=== PATIENT | male | born 1945 | race Caucasian/White ===

== ENCOUNTER 2018-03-13 12:57 | Inpatient (IN) | payer MEDICARE, OTHER ==
[~2018-03-13] VITALS: Ht 167.6 cm; Wt 58.6 kg
[2018-03-13] MEDS ORDERED: CEFEPIME 2GM/50 ML (PMX) 50 ML IVPB STA (13:15)
[2018-03-13] MEDS ORDERED: ACETAMINOPHEN 325 MG TAB PO STA (13:15)
[2018-03-13] MEDS ORDERED: SODIUM CHLORIDE 0.9% 1L BAG IV* STA (13:15)
[2018-03-13 13:17] VITALS: Ht 167.6 cm; Wt 58.6 kg
[2018-03-13] MEDS ORDERED: HALO5TAB23 PO (13:26)
[2018-03-13] MEDS ORDERED: ZOLP5TAB PO (13:27)
[2018-03-13] MEDS ORDERED: BENZ1TAB7 PO (13:27)
--- NOTE | 2018-03-13 13:29 | ERD ---
ER Documentation Chief Complaint Chief Complaint PALPITATIONS/FEVER SINCE THIS AM BROUGHT FROM [facility] HPI 72-year-old male with an unspecified psychiatric history presents the ED via rescue ambulance for evaluation of a 1 day history of palpitations and fever. At the [facility] facility today he seemed to not be acting his usual self and vital signs revealed tachycardia. Patient denies chest pain, shortness of breath, abdominal pain, nausea or vomiting. Denies URI symptoms, cough, rhinorrhea or body aches. Denies dysuria, polyuria, hematuria or flank pain. No skin rash. Patient is a poor historian and history is somewhat limited. ROS All systems reviewed and are negative except as per history of present illness. Medications Home Meds Reported Medications Benztropine Mesylate* (Benztropine Mesylate*) 1 Mg Tablet, 1 MG PO DAILY, TAB 03/13/18 Zolpidem Tartrate* (Ambien*) 5 Mg Tablet, 5 MG PO QHS PRN for INSOMNIA, #30 TAB 03/13/18 Haloperidol* (Haldol*) 5 Mg Tab, 5 MG PO TID, TAB 03/13/18 Allergies Allergies: Coded Allergies: Penicillins (Verified Allergy, Unknown, 03/13/18) PMhx/Soc Lives in a [facility] facility. Medical and Surgical Hx: pt denies Surgical Hx Hx Neurological Disorder: No Hx Respiratory Disorders: No Hx Cardiac Disorders: No Hx Psychiatric Problems: Yes (Possible schizophrenia) Hx Miscellaneous Medical Probl: No Hx Alcohol Use: No Hx Substance Use: No Hx Tobacco Use: No FmHx Unobtainable due to the patient's cognitive impairment Physical Exam Vitals Temperature: 101.3. Pulse: 154. Respirations: 22. Blood pressure: 138/100. O2 saturation 99%. Physical Exam Const: Moderate distress Head: Atraumatic Eyes: Pupils equal reactive to light, extraocular movements are intact. Normal Conjunctiva ENT: Normal External Ears, Nose and Mouth. Pharynx is clear without erythema or exudate. Mucous membranes are dry. Neck: Full range of motion. Nontender. No JVD. No meningismus. Resp: Breath sounds are equal and clear to auscultation bilaterally. No rales rhonchi or wheezes. Cardio: Tachycardic. Irregular rate and rhythm, no murmurs Abd: Soft, non tender, non distended. No rebound or guarding. No masses. Normal bowel sounds Skin: No petechiae or rashes Back: No midline or flank tenderness Ext: No cyanosis, or edema Neur: Awake and alert. Cooperative. Confused. Cranial nerves II through XII are grossly intact. Motor and sensory equal bilaterally. No focal deficit.. Psych: Anxious, bizarre affect. Result Diagram: 03/17/18 1418 03/18/18 0528 Results 24 hrs Laboratory Tests Test 03/13/18 13:25 03/13/18 14:35 03/13/18 14:50 White Blood Count 16.6 10^3/ul Red Blood Count 4.61 10^6/ul Hemoglobin 15.1 g/dl Hematocrit 44.9 % Mean Corpuscular Volume 97.4 fl Mean Corpuscular Hemoglobin 32.8 pg Mean Corpuscular 33.6 g/dl Hemoglobin Concent Red Cell Distribution Width 11.7 % Platelet Count 308 10^3/UL Mean Platelet Volume 9.9 fl Immature Granulocytes % 0.600 % Neutrophils % 85.1 % Lymphocytes % 3.3 % Monocytes % 10.7 % Eosinophils % 0.1 % Basophils % 0.2 % Nucleated Red Blood Cells % 0.0 /100WBC Immature Granulocytes # 0.100 10^3/ul Neutrophils # 14.1 10^3/ul Lymphocytes # 0.6 10^3/ul Monocytes # 1.8 10^3/ul Eosinophils # 0.0 10^3/ul Basophils # 0.0 10^3/ul Nucleated Red Blood Cells # 0.0 10^3/ul Prothrombin Time 14.0 Sec Prothrombin Time Ratio 1.1 INR International 1.07 Normalized Ratio Activated Partial Thromboplast 33.1 Sec Time Sodium Level 135 mmol/L Potassium Level 4.8 mmol/L Chloride Level 102 mmol/L Carbon Dioxide Level 18 mmol/L Anion Gap 15 Blood Urea Nitrogen 32 mg/dl Creatinine 1.25 mg/dl Est Glomerular Filtrat 57 mL/min Rate mL/min Glucose Level 168 mg/dl Calcium Level 10.0 mg/dl Magnesium Level 2.3 mg/dl Total Bilirubin 0.9 mg/dl Direct Bilirubin 0.00 mg/dl Indirect Bilirubin 0.9 mg/dl Aspartate Amino 44 IU/L Transf (AST/SGOT) Alanine 47 IU/L Aminotransferase (ALT/SGPT) Alkaline Phosphatase 106 IU/L Troponin I 0.037 ng/ml Total Protein 7.8 g/dl Albumin 4.2 g/dl Globulin 3.60 g/dl Albumin/Globulin Ratio 1.16 Thyroid Stimulating 1.910 MIU/L Hormone (TSH) POC Venous Lactate 2.0 mmol/L Urine Color YELLOW Urine Clarity CLEAR Urine pH 5.0 Urine Specific [place] 1.021 Urine Ketones TRACE mg/dL Urine Nitrite NEGATIVE mg/dL Urine Bilirubin NEGATIVE mg/dL Urine Urobilinogen NEGATIVE mg/dL Urine Leukocyte Esterase NEGATIVE Mary/ul Urine Microscopic RBC 16 /HPF Urine Microscopic WBC 4 /HPF Urine Mucus FEW /HPF Urine Hemoglobin 2+ mg/dL Urine Glucose NEGATIVE mg/dL Urine Total Protein NEGATIVE mg/dl Current Medications Medications Dose Sig/Carlos A Start Time Status Last (Trade) Ordered Route PRN Stop Time Admin Dose Reason Admin Diltiazem 20 mg ONCE ONCE 03/13/18 DC 03/13/18 HCl IV 13:30 14:26 (Cardizem Iv) 03/13/18 13:31 Diltiazem 125 ml @ 0 Q0M IV 03/13/18 DC HCl mls/hr 13:30 03/13/18 20:03 Sodium 2,400 ml BOLUS OVER 2 03/13/18 DC 03/13/18 Chloride HOURS STAT 13:15 13:55 (NS) IV* 03/13/18 13:20 650 mg ONCE STAT 03/13/18 DC 03/13/18 Acetaminophen PO 13:15 13:55 (Tylenol 03/13/18 13:20 Tab) Cefepime HCl 50 ml @ ONCE STAT 03/13/18 DC 100 mls/hr IVPB 13:15 03/13/18 13:30 Vancomycin 250 ml @ ONCE ONCE 03/13/18 DC HCl 125 mls/hr IVPB 13:30 03/13/18 13:31 Vancomycin 250 ml @ ONCE ONCE 03/13/18 DC 03/13/18 HCl 125 mls/hr IVPB 13:30 13:30 03/13/18 15:29 150 ml @ ONCE ONCE 03/13/18 DC 03/13/18 Levofloxacin/ 100 mls/hr IVPB 13:30 15:21 Dextrose 03/13/18 14:59 650 mg STK-MED 03/13/18 DC Acetaminophen ONCE .ROUTE 13:48 (Tylenol 03/13/18 13:49 Liquid) Procedures/MDM DOCUMENTS REVIEWED: ED nurse, boarding care facility documentation. No prior medical records. EKG: Time: 1306. Atrial fibrillation with RVR. Ventricular rate 141. Nonspecific ST depressions but no acute ST elevations. No QT prolongation. My Interpretation IMAGING: Chest AP portable. Cardiac silhouette is normal. The costophrenic angles are clear. No effusions or infiltrates. No mediastinal widening. My interpretation. MEDICAL DECISION MAKIN-year-old male with an unspecified psychiatric history presents the ED via rescue ambulance for evaluation of a 1 day history of palpitations and fever. CBC significant for leukocytosis but no anemia or thrombocytopenia. Chemistry reveals elevated BUN/creatinine, baseline unknown, no electrolyte abnormalities or hypoglycemia. Lactate is 2.0 mmol/L and repeat is 1.7 mmol/L. Urinalysis is negative. Chest x-ray to evaluate for pneumonia or congestive heart failure is negative. EKG is significant for atrial fibrillation with rapid ventricular response but no acute ischemic EKG changes. Patient with multiple criteria for systemic inflammatory response syndrome including fever, leukocytosis, tachycardia and tachypnea. Likely sepsis although infectious etiology is unknown. No criteria for severe sepsis or septic shock. Normal saline 30 cc/kg fluid bolus given and broad-spectrum antibiotics after cultures. New onset atrial fib with rapid ventricular response. Rate control achieved with diltiazem bolus and titratable infusion to maintain the ventricular response less than 90 bpm. Admit to telemetry for further evaluation and management. Patient's cardiovascular and infectious symptoms have not stabilized and the patient is at risk of rapid decompensation. The patient will be admitted to telemetry for rate control, cardiology consu ltation, careful hydration, antibiotic therapy, infectious source control, further evaluation and management. CRITICAL CARE NOTE: Due to the high probability of imminent, clinically significant hemodynamic, cardiovascular, respiratory and neurologic deterioration, this patient with acute encephalopathy, systemic inflammatory response syndrome and new onset atrial fibrillation with rapid ventricular response required multiple, frequent reevaluations of vital signs and response to therapy including intravenous calcium channel blockers to achieve rate control as well as emergency fluid management while maintaining close respiratory support. Provision of immediate and broad-spectrum antibiotic therapy. Simultaneous assessment for possible sources in order to direct targeted therapy. Consideration for invasive and chemical support to prevent cardiopulmonary collapse. Additional critical care time was spent in review of boarding care notes, interpretation of relevant clinical data including labs, EKG, chest x-ray as well as arranging for admission and ongoing care. TOTAL CRITICAL CARE TIME: 35 minutes not including other separately reportable procedures. CALLS/CONSULTS: Time: 14:55, Dr. Cheatham. Counseled patient regarding diagnosis, diagnostic results and plan for admi ssion. Departure Diagnosis: Primary Impression: Acute encephalopathy Additional Impressions: New onset atrial fibrillation Systemic inflammatory response syndrome Atrial fibrillation with rapid ventricular response History of schizophrenia Condition: Serious SANJAY MARINELLI MD Mar 13, 2018 13:29
[2018-03-13] MEDS ORDERED: VANCOMYCIN 1 GM (PMX) 250 ML IVPB ONE ×2 (13:30)
[2018-03-13] MEDS ORDERED: DILTIAZEM-D5W 125MG/125ML DRIP 125 ML IV SCH (13:30)
[2018-03-13] MEDS ORDERED: LEVOFLOXACIN 750MG/D5W (PMX) 150 ML IVPB ONE (13:30)
[2018-03-13] MEDS ORDERED: DILTIAZEM 25 MG INJ IV ONE ×2 (13:30→19:00)
[2018-03-13] MEDS ORDERED: ACETAMINOPHEN 650MG/20.3ML CUP ONE (13:48)
[2018-03-13] MEDS ORDERED: ONDANSETRON 4 MG INJ IV PRN ×2 (15:30→20:00)
[2018-03-13] MEDS ORDERED: ACETAMINOPHEN 325 MG TAB PO PRN ×2 (15:30→20:00)
[2018-03-13 18:00] VITALS: PULSE 132
[2018-03-13 18:21] VITALS: BP 130/74; PULSE 108; RESP 17
[2018-03-13 18:54] VITALS: PULSE 164
--- NOTE | 2018-03-13 19:30 | NUR ---
Pt. was admitted from ER at 1750 03/13/18 for palpitations, Dx of Afib w/ RVR. Hx of Dimentia. Pt. is oriented to person and time only, very poor memory, not in pain , not in distress, Afib uncontrolled HR 140-160 on admission. , the rest of the V/S within normal limits. Pt. stiff especially on bilateral legs.
--- NOTE | 2018-03-13 19:37 | NUR ---
RN NOTE CALLED DR BRANDT FOR ADMISSION ORDER AND INFORMED HIM REGARDING HR 130S , CARDIZEM IV 10 MG ORDER GIVEN , WOUND ASSESSMENT DONE FOR THIS PT . NEW IV STARTED FOR POSSIBLE CARDIZEM DRIP .
--- NOTE | 2018-03-13 19:53 | HP ---
Date/Time of Note Date/Time of Note DATE: 03/13/18 TIME: 19:48 Assessment/Plan VTE Prophylaxis SCD applied (from Nsg): Yes Pharmacological prophylaxis: NA/contraindicated Pharm contraindication: renal impairment Lines/Catheters IV Catheter Type (from Nrsg): Saline Lock Assessment/Plan Hospital Course 1. Severe sepsis with acute metabolic encephalopathy Source of sepsis is unclear, UA and chest x-ray are normal Empiric antibiotic coverage with vancomycin and Zosyn Follow-up on cultures 2. A. fib with RVR Cardizem 10 mg IV x1 Start low-dose metoprolol 3. Psychiatric illness-likely schizophrenia Resume patient's home [facility] and Sarah Patient resides in a board and care facility 4. Acute versus chronic kidney disease Baseline creatinine unknown IV fluids and antibiotics Monitor Prophylaxis: SCDs Result Diagram: 03/13/18 1325 03/13/18 1325 Results 24hrs Laboratory Tests Test 03/13/18 13:25 03/13/18 14:35 03/13/18 14:50 03/13/18 17:18 White Blood Count 16.6 H Red Blood Count 4.61 L Hemoglobin 15.1 Hematocrit 44.9 Mean Corpuscular 97.4 Volume Mean Corpuscular 32.8 Hemoglobin Mean Corpuscular 33.6 Hemoglobin Concent Red Cell 11.7 Distribution Width Platelet Count 308 Mean Platelet Volume 9.9 Immature 0.600 H Granulocytes % Neutrophils % 85.1 H Lymphocytes % 3.3 L Monocytes % 10.7 Eosinophils % 0.1 Basophils % 0.2 Nucleated Red Blood 0.0 Cells % Immature 0.100 H Granulocytes # Neutrophils # 14.1 H Lymphocytes # 0.6 L Monocytes # 1.8 H Eosinophils # 0.0 Basophils # 0.0 Nucleated Red Blood 0.0 Cells # Prothrombin Time 14.0 Prothrombin Time 1.1 Ratio INR International 1.07 Normalized Ratio Activated 33.1 Partial Thromboplast Time Sodium Level 135 Potassium Level 4.8 Chloride Level 102 Carbon Dioxide Level 18 L Anion Gap 15 H Blood Urea Nitrogen 32 H Creatinine 1.25 H Est Glomerular 57 L Filtrat Rate mL/min Glucose Level 168 Calcium Level 10.0 Magnesium Level 2.3 Total Bilirubin 0.9 Direct Bilirubin 0.00 Indirect Bilirubin 0.9 Aspartate Amino 44 Transf (AST/SGOT) Alanine 47 Aminotransferase (AL T/SGPT) Alkaline Phosphatase 106 Troponin I 0.037 Total Protein 7.8 Albumin 4.2 Globulin 3.60 H Albumin/Globulin 1.16 Ratio Thyroid Stimulating 1.910 Hormone (TSH) POC Venous Lactate 2.0 1.7 Urine Color YELLOW Urine Clarity CLEAR Urine pH 5.0 Urine Specific 1.021 [place] Urine Ketones TRACE A Urine Nitrite NEGATIVE Urine Bilirubin NEGATIVE Urine Urobilinogen NEGATIVE Urine Leukocyte NEGATIVE Esterase Urine Microscopic 16 H RBC Urine Microscopic 4 WBC Urine Mucus FEW A Urine Hemoglobin 2+ H Urine Glucose NEGATIVE Urine Total Protein NEGATIVE HPI/ROS Admit Date/Time Admit Date/Time Mar 13, 2018 at 15:21 Hx of Present Illness Patient is a 72-year-old male with a history of psychiatric illness who presents via rescue ambulance for evaluation of 1 day history of palpitations and fever. Patient resides at a boarding care facility and reportedly was mentally altered relative to his baseline. Patient is unable to provide any history at this time and history is obtained from ER physician. In the ER patient had evidence of sepsis with psychosis, fever and A. fib with RVR. ROS Subjective hx not possible: pt non-verbal PMH/Family/Social Past Medical History As per HPI Medications Current Medications Diltiazem HCl 125 ml @ 0 mls/hr Q0M IV ; Start 03/13/18 at 13:30 Coded Allergies: Penicillins (Verified Allergy, Unknown, 03/13/18) Family History Significant Family History: no pertinent family hx Social History Unable to obtain, [facility] Smoking Status: Unknown if ever smoked Exam/Review of Systems Vital Signs Vitals Vital Signs Date Temp Pulse Resp B/P (MAP) Pulse Ox O2 O2 Flow FiO2 Time Delivery Rate 03/13/18 164 18:54 03/13/18 98.6 17 130/74 96 18:21 (92) 03/13/18 Nasal 2 13:17 Cannula Exam Constitutional: non-verbal Psych: confusion Respiratory: clear to auscultation Cardiovascular: regular rate and rhythm Gastrointestinal: soft; No distended Musculoskeletal: nl extremities to inspection AIDA BRANDT Mar 13, 2018 19:53
[2018-03-13 19:58] VITALS: BP 143/76; PULSE 95; RESP 18
[2018-03-13 20:00] VITALS: PULSE 109
[2018-03-13] MEDS ORDERED: morphine 2 MG INJ IV PRN (20:00)
[2018-03-13] MEDS ORDERED: NACL 0.9% 3 ML SYG IV SCH (20:00)
[2018-03-13] MEDS ORDERED: HYDROCODONE/APAP (5/325) TAB PO PRN (20:00)
[2018-03-13] MEDS ORDERED: ZOLPIDEM 5 MG TAB PO PRN (20:00)
[2018-03-13] MEDS ORDERED: VANCOMYCIN IV PER PHARMACY XX SCH (20:00)
[2018-03-13] MEDS ORDERED: DOCUSATE SODIUM 100 MG CAP PO PRN (20:00)
[2018-03-13] MEDS: METOPROLOL 25 MG TAB PO SCH (21:08)
--- NOTE | 2018-03-13 21:40 | NUR ---
Vancomycin per Rx 72 y/o M 5'6" 58.6kg SCr 1.25 WBC 16.6 Allergy: penicillins Vancomycin 1gm IV x1 dose given in ER Start Vancomycin 750 mg IV q12h Monitor renal function Check Vancomycin trough level at steady state
[2018-03-13] MEDS ORDERED: morphine 4 MG/ML VIAL IV PRN (22:00)
[2018-03-13] MEDS: HALOPERIDOL 5 MG TAB PO SCH (22:01)
[2018-03-13] MEDS: DILTIAZEM-D5W 125MG/125ML DRIP 125 ML IV SCH (22:02)
[2018-03-13] MEDS: D5W-0.45 NACL + KCL 20 MEQ 1,000 ML IV SCH (22:21)
[2018-03-14] VITALS (13 sets, daily range): BP systolic 122–146; BP diastolic 65–89; PULSE 71–154; RESP 1–18
[2018-03-14] MEDS ORDERED: PIPER-TAZO 3.375 GM IV (PMX) 100 ML IVPB SCH
[2018-03-14] MEDS: VANCOMYCIN 750 MG (PMX) 250 ML IVPB SCH ×2 (00:37→09:52)
--- NOTE | 2018-03-14 06:20 | NUR ---
Pt. was quiet for the most part w/ bursts of anger on occasion & incoherence, A/O x2 to person & time; pt. in controlled A fib, normal V/S, on 5 mg/hr of Cardizem drip. No urination since admission, noticed some scant blood clot at tip of penis, informed hospitalist. Addendum: 03/14/18 at 0741 by FRANCISCO MAK RN Bladder scan 880 cc.
[2018-03-14] MEDS: D5W-0.45 NACL + KCL 20 MEQ 1,000 ML IV SCH ×2 (08:46→15:38)
[2018-03-14] MEDS: BENZTROPINE 1 MG TAB PO SCH (09:00)
[2018-03-14] MEDS: METOPROLOL 25 MG TAB PO SCH ×2 (09:00→21:51)
[2018-03-14] MEDS: HALOPERIDOL 5 MG TAB PO SCH ×3 (09:00→21:50)
[2018-03-14] MEDS ORDERED: LEVOFLOXACIN 750MG/D5W (PMX) 150 ML IVPB SCH (13:00)
--- NOTE | 2018-03-14 15:01 | NUR ---
WOUND CONSULT: 72 year old male admitted from [facility] with atrial fibrillation with RVR per record. History of schizophrenia per medical history. WBC 15.0. H&H13.1/38.5. Plt 282. BUN/Cr2.32. Albumin 4.2. Patient awake, alert. Moderate assist to turn. ASSESSMENT: - Right elbow stage 1 pressure injury. Condition present on admission. [id number]. Non-blanchable redness. - Left trochanter healed full thickness pressure injury with surrounding darken skin discoloration. Condition present on admission [id number]. - Left heel unstageable pressure injury. Condition present on admission. [id number]. Dark black and grayness wound base. Periwound mild redness. No drainage. No odor. - Right heel unstageable pressure injury. Condition present on admission. [id number]. Dark black wound base. Periwound mild redness. No drainage. No odor. - Sacrococcyx to buttocks patchy redness area. Stage 1 vs other skin condition. Condition present on admission. [id number]. No drainage. No odor. RECOMMENDATIONS: - Right elbow, Left and Right heels, and Sacrococcyx area: Cleanse with normal saline. Pat dry. Apply Venelex ointment BID. Then, cover with foam border dressing. Change foam dressing every 3 days and as needed. - Left hip: Cover with foam border dressing for protection. Change every 3 days. - Low air loss surface. - Float heels off bed with pillows. - Reposition every 2 hours. Discussed assessment and plan of care with Torrie BRAMBILA. RN to obtain wound care recommendations from . Yareli Skinner, BSN RN CWOCN
--- NOTE | 2018-03-14 18:27 | NUR ---
END OF SHIFT REPORT: Patient with very minimal urine output all day. Bladder scanner showing >800ml. Escalated to charger that patient has not been seen by medical team all day. Found out from Dr Muller that Dr Deleon will see patient today. Texted MD for the low urine output. No other concerns. VSS. Seen by contract administration manager today for community acquired pressure injuries. Dietary consult pending.
--- NOTE | 2018-03-14 18:55 | PN ---
Date/Time of Note Date/Time of Note DATE: 03/14/18 TIME: 18:52 Assessment/Plan VTE Prophylaxis Risk score (from Nsg)>0 risk: 3 SCD applied (from Ns): Yes SCD contraindicated: low risk/ambulating Pharmacological prophylaxis: NA/contraindicated Pharm contraindication: low risk/ambulating Lines/Catheters IV Catheter Type (from Nrs): Peripheral IV Assessment/Plan Hospital Course Assessment and plan 1. A. fib RVR, unknown etiology, stable continue rate control consider anticoagulation 2. Pain? Examined for urinary retention 3. May need snf 4. Acute renal failure rule out retention obstruction 5. Sirs possible sepsis follow-up on cultures Subjective: Some distress, generalized pain. Poor historian nonspecific. Objective: A. fib rate controlled PE No pallor adenopathy Irregular no murmur rub gallop Clear Bs diminished mild suprapubic tenderness. No rigidity rebound guarding No edema Result Diagram: 03/14/1828 03/14/1828 Results 24hrs Laboratory Tests Test 03/13/18 19:11 03/14/18 00:49 03/14/18 05:28 Lactic Acid Level 1.6 Creatine Kinase 144 137 Creatine Kinase Index 2.6 2.9 Creatinine Kinase MB (Mass) 3.77 H 3.92 H Troponin I 0.048 0.040 White Blood Count 15.0 H Red Blood Count 3.97 L Hemoglobin 13.1 L Hematocrit 38.5 L Mean Corpuscular Volume 97.0 Mean Corpuscular Hemoglobin 33.0 Mean Corpuscular Hemoglobin Concent 34.0 Red Cell Distribution Width 12.0 Platelet Count 282 Mean Platelet Volume 10.2 Immature Granulocytes % 0.500 H Neutrophils % 85.8 H Lymphocytes % 3.7 L Monocytes % 9.9 Eosinophils % 0.0 Basophils % 0.1 Nucleated Red Blood Cells % 0.0 Immature Granulocytes # 0.080 H Neutrophils # 12.9 H Lymphocytes # 0.6 L Monocytes # 1.5 H Eosinophils # 0.0 Basophils # 0.0 Nucleated Red Blood Cells # 0.0 Sodium Level 136 Potassium Level 4.9 Chloride Level 106 Carbon Dioxide Level 17 L Anion Gap 13 Blood Urea Nitrogen 42 H Creatinine 2.32 #H Est Glomerular Filtrat Rate mL/min 28 L Glucose Level 186 Hemoglobin A1c 5.7 Calcium Level 9.3 Phosphorus Level 5.4 H Magnesium Level 2.2 Exam/Review of Systems Vital Signs Vitals Vital Signs Date Temp Pulse Resp B/P (MAP) Pulse Ox O2 O2 Flow FiO2 Time Delivery Rate 03/14/18 82 16:00 03/14/18 98.1 131/73 97 Room Air 15:13 (92) 03/14/18 18 11:00 03/13/18 2 13:17 Intake and Output 03/13/18 03/13/18 03/14/18 1414:59 22:59 06:59 IntakeIntake Total 1040 ml OutputOutput Total 0 ml BalanceBalance 1040 ml Medications Medications Current Medications Potassium Chloride/Dextrose/ Sod Cl 1,000 ml @ 100 mls/hr Q10H IV Last administered on 03/14/18at 08:46; Admin Dose 100 MLS/HR; Start 03/13/18 at 19:48 IV Flush (NS 3 ml) 3 ml PER PROTOCOL IV ; Start 03/13/18 at 20:00 Ondansetron HCl (Zofran Inj) 4 mg Q6H PRN IV NAUSEA AND/OR VOMITING; Start 03/13/18 at 20:00 Acetaminophen (Tylenol Tab) 650 mg Q6H PRN PO PAIN LEVEL 1-3 OR FEVER; Start 03/13/18 at 20:00 Acetaminophen/ Hydrocodone Bitart ([place] (5/325)) 1 tab Q6H PRN PO MODERATE PAIN LEVEL 4-6; Start 03/13/18 at 20:00 Docusate Sodium (Colace) 100 mg Q12H PRN PO CONSTIPATION; Start 03/13/18 at 20:00 Zolpidem Tartrate (Ambien) 5 mg QHS PRN PO SLEEP; Start 03/13/18 at 20:00 Vancomycin HCl (Vanco Iv Per Pharmacy) VANCOMYCIN PER PHARMACY PER PROTOCOL XX ; Start 03/13/18 at 20:00 Diltiazem HCl 125 ml @ 5 mls/hr Q24H IV Last administered on 03/13/18at 22:02; Admin Dose 5 MLS/HR; Start 03/13/18 at 20:00 Benztropine Mesylate (Cogentin) 1 mg DAILY PO ; Start 03/14/18 at 09:00 Haloperidol (Haldol) 5 mg TID PO Last administered on 03/13/18at 22:01; Admin Dose 5 MG; Start 03/13/18 at 21:00 Metoprolol Tartrate (Lopressor) 25 mg BID PO Last administered on 03/13/18at 21:08; Admin Dose 25 MG; Start 03/13/18 at 21:00 Morphine Sulfate (morphine) 2 mg Q4H PRN IV SEVERE PAIN LEVEL 7-10; Start 03/13/18 at 22:00 Vancomycin/Sodium Chloride 250 ml @ 125 mls/hr Q12H IVPB Last administered on 03/14/18at 09:52; Admin Dose 125 MLS/HR; Start 03/13/18 at 22:00; Status Hold Levofloxacin/ Dextrose 100 ml @ 150 mls/hr Q48H IVPB ; Start 03/16/18 at 13:00 Miscellaneous Information (*Rx Drug Level Order Reminder*) VANCO RANDOM LEVEL ... ONCE ONCE XX ; Start 03/15/18 at 05:00; Stop 03/15/18 at 05:01 JAKUB OVERTON MD Mar 14, 2018 18:55
[2018-03-14] MEDS: TAMSULOSIN (SR) 0.4 MG CAP PO SCH (21:50)
[2018-03-14] MEDS: POLYETHYLENE GLYCOL 17 GM PACKET PO SCH (21:51)
[2018-03-14] MEDS: SENNA/DOCUSATE NA (8.6MG/50MG) TAB PO SCH (21:51)
[2018-03-15] VITALS (18 sets, daily range): BP systolic 110–129; BP diastolic 60–81; PULSE 37–196; RESP 16–18
[2018-03-15] MEDS: DILTIAZEM-D5W 125MG/125ML DRIP 125 ML IV SCH ×2 (01:03→20:00)
[2018-03-15] MEDS: D5W-0.45 NACL + KCL 20 MEQ 1,000 ML IV SCH ×2 (01:04→11:31)
--- NOTE | 2018-03-15 05:05 | NUR ---
RN NOTES: Patient refused blood draw; got extremely agitated and unpleasant, started cursing. Explained the reason for the blood draw, but still refused. Asked if we can try at a later time, and he agreed, asked when, and he said, "Never." broadband technician will come back at a later time. Will endorse to AM nurse.
--- NOTE | 2018-03-15 07:42 | NUR ---
EOSS: Patient alert and oriented to self only. Patient gets agitated and confused at times. Patient on Cardizem drip, AFIB heart rhythm, HR in 80s-90s. Has occasional episodes of AFIB w/ RVR, noted HR of 154. Skin assessed, wound care treatment provided. Jimenez inserted at beginning of shift; patent and draining well. Patient repositioned q2h. Fall precautions implemented. Hourly rounding conducted. Patient currently NPO except medications. Patient kept clean and dry. Continue with plan of care. Endorsed to AM nurse.
[2018-03-15] MEDS: HALOPERIDOL 5 MG TAB PO SCH ×3 (08:54→20:40)
[2018-03-15] MEDS: BENZTROPINE 1 MG TAB PO SCH (08:54)
[2018-03-15] MEDS: METOPROLOL 25 MG TAB PO SCH (08:54)
[2018-03-15] MEDS: POLYETHYLENE GLYCOL 17 GM PACKET PO SCH ×2 (08:54→20:41)
[2018-03-15] MEDS: BALSAM PERU/CASTOR OIL 60 GM TUBE TOP SCH ×2 (09:00→20:41)
--- NOTE | 2018-03-15 10:30 | NUR ---
RN Notes: Notified MD of patient having 4 beats of Vtach -196. Pt asymptomatic, VSS.
[2018-03-15] MEDS: LEVOFLOXACIN 500 MG TAB PO SCH (10:51)
--- NOTE | 2018-03-15 11:20 | NUR ---
PT evaluation Therapy day number 1 Evaluation Start Time 11:20 Evaluation End Time 11:50 Evaluation Total Time 30 min Subjective Denies pain Pain Intensity 0 (0-10) Patient Stated Goal for Pain Relief 0 (0-10) Pain Level Comment denies pain Pre Treatment Vital Signs Stable Yes Exercise Assessment Label Bilat Lower Extremity Exercise Type Passive ROM Equipment Present A pump IV pump Post Treatment Pain Intensity 0 0-10 Additional Post Treatment Comment See note Total Minutes 30 Total Units 2 PT Technical Record Comment 72 yo male presents with 1 day history of palpitations and fever. CXR (-) PMH: afib, psychiatric illness PLOF: Per Caregiver (Gus): patient ambulatory prior to 6 months ago however since has been 2P transfer and non-ambulatory. Patient resides at board and care Precautions: fall risk S: Patient in bed, lethargic throughout but agreeable to PT evaluation. Pt cleared for activity per RN O: PT evaluation completed, performed ROM assessment, pt presents with severe extensor tone in BLE with L>R. Unable to attain R knee extension secondary to tone or contracture. B ankles limited to roughly -10 deg DF. Patient resistant to hip abduction and despite patient reported ability to move "a little bit", unable to observe notable contraction. Unable to obtain PLOF from patient, as patient reports primarily bed bound. Contact Caregiver (Gus) per number in chart who was able to clarify PLOF and environment. Discussed POC with RN, who is agreeable to PT decision A: Patient presents with significant tone and contractures that limited safe progression of mobility. Additionally patient lethargic with poor recall and receptiveness to PT education and instruction. Extensor tone limits safety and could benefit from PRAFO for contracture prevention. Patient at baseline functional mobility and has poor potential for functional improvement, as such does not require skilled inpatient PT at this time P: discharge physical therapy Recommendation: Patient will require 24 hr care for mobility.
--- NOTE | 2018-03-15 13:07 | NUR ---
Nutrition Consult Consult regarding multiple pressure injury was ordered. Recommend Angelica-Randy daily. And will add Lan BID when diet is resumed. Thank you!
--- NOTE | 2018-03-15 13:18 | NUR ---
VANCO PER RX: 03/15 VANCOMYCIN RANDOM = 14.8 SCR 1.25 -> 2.32 -> 1.67 Comments/Plan: CHANGED VANCO TO 750 MG IVPB Q24H.
[2018-03-15] MEDS: VANCOMYCIN 750 MG (PMX) 250 ML IVPB SCH (14:37)
--- NOTE | 2018-03-15 14:55 | RADRPT ---
Echocardiogram Report Patient Name: LEXI JOHNSON Gender: Male Date: 1945 Study Date: 14-Mar-2018 [employer] Gift Wrapping: Adebayo Smith [facility] Location: [address] Ref. Physician: AIDA BRANDT Quality: Adequate Procedures: Transthoracic echocardiogram with complete 2D, M-Mode, and doppler examination. Indications: Atrial Fibrillation and eval IE. 2D/M Mode Doppler Measurement Value Normal Ranges Measurement Value Normal Ranges LVIDd 2D 3.7 3.5 - 5.6 cm AV Peak Alex 1.1 m/sec LVIDs 2D 2.6 2.1 - 4.1 cm AV Peak PG 5.0 mmHg FS 2D 29.6 % AI Peak PG 59.0 mmHg LVPWd 2D 0.9 0.6 - 1.1 cm AI Peak Alex 3.8 m/sec IVSd 2D 1.5 0.6 - 1.1 cm AI PHT 313.0 msec IVS/LVPW 2D 1.7 LVOT Peak Alex 1.0 m/sec AoR Diam 2D 2.1 2.0 - 3.7 cm LVOT Peak PG 4.0 mmHg LA/Ao 2D 2 0 - 1 MV E Peak Alex 1.0 m/sec EDV 2D 51.5 cm3 MV A Peak Alex 0.8 m/sec ESV 2D 18.0 cm3 MV E/A 1.2 LA Dimen 2D 4.9 2.3 - 4.0 cm MV Decel Time 141 msec MV E/A 1.2 TR Peak Alex 3.6 m/sec TR Peak PG 51.0 mmHg RVSP 59.0 mmHg Findings Left Ventricle: Normal left ventricular systolic function. Normal left ventricular cavity size. Mild hypertrophy of the basal septum. Ejection fraction is visually estimated at 55 %. Tissue Doppler/Mitral Doppler indices are consistent with pseudonormalization with mildly elevated left atrial pressure (Stage II diastolic dysfunction). Right Ventricle: Normal right ventricular size. Normal right ventricular systolic function. Left Atrium: There is moderate enlargement of left atrium. Right Atrium: The right atrium is normal in size. Mitral Valve: Mild mitral leaflet calcification. Mild mitral annular calcification. Mild to moderate mitral valve regurgitation. Aortic Valve: No significant aortic stenosis or insufficiency. Aortic cusps appear mildly calcified. Moderate aortic valve regurgitation. No evidence of endocarditis. Tricuspid Valve: Normal appearance of the tricuspid valve. Estimated peak PA systolic pressure 59 mmHg. There is moderate tricuspid regurgitation. Pulmonic Valve: Pulmonic valve not well visualized. There is trace pulmonic regurgitation. Pericardium: Normal pericardium with no significant pericardial effusion. Aorta: Normal aortic root. IVC: Normal size with poor respiratory collapse consistent with elevated right atrial pressure. Conclusions Basal septal hypertrophy with normal systolic function. Pseudonormal diastolic function. Moderate left atrial enlargement. Mild to moderate mitral regurgitation. Moderate aortic regurgitation. Moderate tricuspid regurgitation with moderate pulmonary hypertension. Dilated IVC suggests elevated right atrial pressure. Electronically Signed By: Elena Hartman 15-Mar-2018 14:54:15 -0800 Patient Name: LEXI JOHNSON Study Date: 14-Mar-2018 [id number]
--- NOTE | 2018-03-15 16:38 | PN ---
Date/Time of Note Date/Time of Note DATE: 03/15/18 TIME: 16:36 Assessment/Plan VTE Prophylaxis Risk score (from Ns)>0 risk: 7 SCD applied (from Ns): Yes SCD contraindicated: low risk/ambulating Pharmacological prophylaxis: LMWH Lines/Catheters IV Catheter Type (from Nrs): Peripheral IV Urinary Cath still in place: Yes Reason Cath still needed: urinary retention Assessment/Plan Hospital Course Assessment and plan 1. A. fib RVR, unknown etiology, stable continue rate control consider anticoagulation. Start Lovenox. 2. Pain? Likely due to urinary retention 3. May need snf 4. Acute renal failure due to retention/ obstruction continue Jimenez started Flomax outpatient neurology. 5. Sirs possible sepsis follow-up on cultures/rule out influenza 6. Asymptomatic VT, rule out ACS. Increased beta-jose; adjust/ treat pain/ electrolytes Subjective: 03/14 some distress, generalized pain. Poor historian nonspecific. 03/15: Events noted less distress. Asymptomatic V. tach earlier today. Objective: A. fib rate controlled PE No pallor/ jvd Irregular no murmur rub gallop Clear Bs nt nd. No rigidity rebound guarding No edema Result Diagram: 03/15/18 0804 03/15/18 0804 Results 24hrs Laboratory Tests Test 03/15/18 08:04 White Blood Count 11.5 #H Red Blood Count 3.45 L Hemoglobin 11.4 L Hematocrit 33.4 L Mean Corpuscular Volume 96.8 Mean Corpuscular Hemoglobin 33.0 Mean Corpuscular Hemoglobin Concent 34.1 Red Cell Distribution Width 11.9 Platelet Count 222 # Mean Platelet Volume 10.1 Immature Granulocytes % 0.300 Neutrophils % 84.7 H Lymphocytes % 5.9 L Monocytes % 8.5 Eosinophils % 0.4 Basophils % 0.2 Nucleated Red Blood Cells % 0.0 Immature Granulocytes # 0.040 H Neutrophils # 9.8 H Lymphocytes # 0.7 L Monocytes # 1.0 H Eosinophils # 0.1 Basophils # 0.0 Nucleated Red Blood Cells # 0.0 Sodium Level 138 Potassium Level 3.8 Chloride Level 107 Carbon Dioxide Level 21 Anion Gap 10 Blood Urea Nitrogen 39 H Creatinine 1.67 H Est Glomerular Filtrat Rate mL/min 41 L Glucose Level 133 # Calcium Level 9.2 Magnesium Level 2.0 Total Bilirubin 0.3 Direct Bilirubin 0.00 Indirect Bilirubin 0.3 Aspartate Amino Transf (AST/SGOT) 25 Alanine Aminotransferase (ALT/SGPT) 41 Alkaline Phosphatase 60 Total Protein 5.7 #L Albumin 2.8 #L Globulin 2.90 Albumin/Globulin Ratio 0.96 Lipase 63 Vitamin B12 Level 546 Random Vancomycin Level 14.8 Rapid Plasma Reagin NONREACTIVE Exam/Review of Systems Vital Signs Vitals Vital Signs Date Temp Pulse Resp B/P (MAP) Pulse Ox O2 O2 Flow FiO2 Time Delivery Rate 03/15/18 98.3 75 16 129/81 98 Room Air 15:55 (97) 03/13/18 2 13:17 Intake and Output 03/14/18 03/14/18 03/15/18 1515:00 23:00 07:00 IntakeIntake Total 35 ml 0 ml 1620 ml OutputOutput Total 2800 ml BalanceBalance 35 ml 0 ml -1180 ml Medications Medications Current Medications Potassium Chloride/Dextrose/ Sod Cl 1,000 ml @ 50 mls/hr Q20H IV Last administered on 03/15/18at 11:31; Admin Dose 50 MLS/HR; Start 03/13/18 at 19:48 IV Flush (NS 3 ml) 3 ml PER PROTOCOL IV ; Start 03/13/18 at 20:00 Ondansetron HCl (Zofran Inj) 4 mg Q6H PRN IV NAUSEA AND/OR VOMITING; Start 03/13/18 at 20:00 Acetaminophen (Tylenol Tab) 650 mg Q6H PRN PO PAIN LEVEL 1-3 OR FEVER; Start 03/13/18 at 20:00 Acetaminophen/ Hydrocodone Bitart ([place] (5/325)) 1 tab Q6H PRN PO MODERATE PAIN LEVEL 4-6; Start 03/13/18 at 20:00 Docusate Sodium (Colace) 100 mg Q12H PRN PO CONSTIPATION; Start 03/13/18 at 20:00 Zolpidem Tartrate (Ambien) 5 mg QHS PRN PO SLEEP; Start 03/13/18 at 20:00 Vancomycin HCl (Vanco Iv Per Pharmacy) VANCOMYCIN PER PHARMACY PER PROTOCOL XX ; Start 03/13/18 at 20:00 Diltiazem HCl 125 ml @ 5 mls/hr Q24H IV Last administered on 03/15/18at 01:03; Admin Dose 5 MLS/HR; Start 03/13/18 at 20:00 Benztropine Mesylate (Cogentin) 1 mg DAILY PO Last administered on 03/15/18 08:54; Admin Dose 1 MG; Start 03/14/18 at 09:00 Haloperidol (Haldol) 5 mg TID PO Last administered on 03/15/18at 13:18; Admin Dose 5 MG; Start 03/13/18 at 21:00 Morphine Sulfate (morphine) 2 mg Q4H PRN IV SEVERE PAIN LEVEL 7-10; Start 03/13/18 at 22:00 Senna/Docusate Sodium (Senokot-S) 2 tab HS PO Last administered on 03/14/18at 21:51; Admin Dose 2 TAB; Start 03/14/18 at 21:00 Polyethylene Glycol (Miralax) 17 gm BID PO Last administered on 03/15/18at 08:54; Admin Dose 17 GM; Start 03/14/18 at 21:00 Lactobacillus Acidophilus/ Rhamnosus (Culturelle) 1 cap BID PO ; Start 03/15/18 at 21:00 Tamsulosin HCl (Flomax) 0.4 mg HS PO Last administered on 03/14/18at 21:50; Admin Dose 0.4 MG; Start 03/14/18 at 21:00 Metoprolol Tartrate (Lopressor) 50 mg BID PO ; Start 03/15/18 at 21:00 Levofloxacin (Levaquin) 500 mg DAILY@06 PO Last administered on 03/15/18at 10:51; Admin Dose 500 MG; Start 03/15/18 at 10:30 Vancomycin/Sodium Chloride 250 ml @ 125 mls/hr Q24H IVPB Last administered on 03/15/18at 14:37; Admin Dose 125 MLS/HR; Start 03/15/18 at 14:30 JAKUB OVERTON MD Mar 15, 2018 16:38
[2018-03-15] MEDS: POTASSIUM CHLORIDE 20 MEQ POWDER FOR ORAL SOLN PO SCH (17:39)
--- NOTE | 2018-03-15 18:28 | NUR ---
EOSS: Pt AO x 1-2, confused at times. Afib on tele, cardizem drip running. Repositioned q2h, skin kept clean and dry. Willie family member called, and updated on plan of care. Forwarded number for MD to call and discuss as well. Will endorse accordingly to oncoming shift.
[2018-03-15] MEDS: LACTOBACILLUS RHAMNOSUS CAP PO SCH (20:39)
[2018-03-15] MEDS: TAMSULOSIN (SR) 0.4 MG CAP PO SCH (20:40)
[2018-03-15] MEDS: SENNA/DOCUSATE NA (8.6MG/50MG) TAB PO SCH (20:40)
[2018-03-15] MEDS: METOPROLOL 50 MG TAB PO SCH (20:40)
[2018-03-16] VITALS (13 sets, daily range): BP systolic 127–136; BP diastolic 69–86; PULSE 64–164; RESP 17–20
--- NOTE | 2018-03-16 04:10 | NUR ---
Yaneth Morris Held: Patient's heart rate is now AFIB low in 50s-60s, lowest rate was 37 nonsustained, informed Dr. Duenas, received order to stop it and resume drip if HR is greater than 115.
[2018-03-16] MEDS: LEVOFLOXACIN 500 MG TAB PO SCH (05:37)
--- NOTE | 2018-03-16 06:59 | NUR ---
EOSS: Patient alert and oriented to person and place. Patient is a little more alert than previous night. Patient is AFIB controlled on the monitor. All meds admistered, Cardizem drip currently on hold, see previous note. Skin care and wound treatment provided. Patient kept clean and dry, repositioned q2h. AM care provided. Hourly rounding conducted. Continue with plan of care. Will endorse to AM nurse.
[2018-03-16] MEDS: METOPROLOL 50 MG TAB PO SCH ×2 (08:46→19:30)
[2018-03-16] MEDS: HALOPERIDOL 5 MG TAB PO SCH ×3 (08:46→21:00)
[2018-03-16] MEDS: BENZTROPINE 1 MG TAB PO SCH (08:46)
[2018-03-16] MEDS: LACTOBACILLUS RHAMNOSUS CAP PO SCH ×2 (08:46→21:00)
[2018-03-16] MEDS: POTASSIUM CHLORIDE 20 MEQ POWDER FOR ORAL SOLN PO SCH (08:47)
[2018-03-16] MEDS: POLYETHYLENE GLYCOL 17 GM PACKET PO SCH ×2 (08:47→21:00)
[2018-03-16] MEDS: BALSAM PERU/CASTOR OIL 60 GM TUBE TOP SCH ×2 (08:54→21:00)
[2018-03-16] MEDS: D5W-0.45 NACL + KCL 20 MEQ 1,000 ML IV SCH (08:57)
[2018-03-16] MEDS ORDERED: ENOXAPARIN 100 MG/ML SYG SC SCH (09:00)
[2018-03-16] MEDS ORDERED: LEVOFLOXACIN 500MG/D5W (PMX) 100 ML IVPB SCH (13:00)
[2018-03-16] MEDS: VANCOMYCIN 750 MG (PMX) 250 ML IVPB SCH (13:40)
--- NOTE | 2018-03-16 13:54 | PN ---
Date/Time of Note Date/Time of Note DATE: 03/16/18 TIME: 13:47 Assessment/Plan VTE Prophylaxis Risk score (from Ns)>0 risk: 7 SCD applied (from Ns): Yes Pharmacological prophylaxis: LMWH Lines/Catheters IV Catheter Type (from Nrsg): Peripheral IV Urinary Cath still in place: Yes Reason Cath still needed: other (indicate) Assessment/Plan Assessment/Plan 1. Atrial fibrillation, ?new, VR controlled with metoprolol, cardizem stopped this morning, cardiology consult for echo and ?safe to give anticoagulant 2. Psychiatric illness-likely schizophrenia, stable 3. Acute versus chronic kidney disease, renal US 4. UTI, on levaquin 5. DVT prophylaxis lovenox Result Diagram: 03/16/18 0513 03/16/18 0513 Results 24hrs Laboratory Tests Test 03/16/18 05:13 White Blood Count 8.7 # Red Blood Count 3.56 L Hemoglobin 11.7 L Hematocrit 34.5 L Mean Corpuscular Volume 96.9 Mean Corpuscular Hemoglobin 32.9 Mean Corpuscular Hemoglobin Concent 33.9 Red Cell Distribution Width 11.7 Platelet Count 201 Mean Platelet Volume 9.9 Immature Granulocytes % 0.600 H Neutrophils % 74.8 Lymphocytes % 10.5 L Monocytes % 10.8 Eosinophils % 3.1 Basophils % 0.2 Nucleated Red Blood Cells % 0.0 Immature Granulocytes # 0.050 H Neutrophils # 6.5 Lymphocytes # 0.9 Monocytes # 0.9 Eosinophils # 0.3 Basophils # 0.0 Nucleated Red Blood Cells # 0.0 Sodium Level 141 Potassium Level 3.6 Chloride Level 105 Carbon Dioxide Level 25 Anion Gap 11 Blood Urea Nitrogen 25 #H Creatinine 0.88 Est Glomerular Filtrat Rate mL/min > 60 Glucose Level 108 Calcium Level 9.0 Magnesium Level 1.7 Troponin I 0.025 Subjective 24 Hr Interval Summary Free Text/Dictation no pain, no shortness of breath Exam/Review of Systems Vital Signs Vitals Vital Signs Date Temp Pulse Resp B/P (MAP) Pulse Ox O2 O2 Flow FiO2 Time Delivery Rate 03/16/18 71 12:27 03/16/18 97.8 20 132/86 99 Room Air 11:24 (101) 03/13/18 2 13:17 Intake and Output 03/15/18 03/15/18 03/16/18 1515:00 23:00 07:00 IntakeIntake Total 100 ml 695 ml OutputOutput Total 1200 ml 1000 ml BalanceBalance -1100 ml -305 ml Exam Constitutional: alert, well developed Head: normocephalic, atraumatic Eyes: nl conjunctiva, EOMI, nl lids, PERRL ENMT: nl external ears & nose, nl lips & teeth, nl nasal mucosa & septum, mucosa pink and moist Neck: supple, non-tender Respiratory: clear to auscultation, normal air movement; No congested cough, No crackles/rales, No diminished breath sounds, No intercostal retraction, No labored breathing, No respirations, No tactile fremitus, No wheezing, No other Cardiovascular: irregular rhythm; No bruits, No diastolic murmur, No edema, No gallop, No jugular venous distention (JVD), No murmurs/extra sounds, No rub, No systolic murmur, No S3, No S4, No other Gastrointestinal: soft, nl liver, spleen, non-tender Musculoskeletal: nl extremities to inspection Extremities: normal pulses; No calf tenderness, No cyanosis, No clubbing, No edema, No pitting pedal edema, No palpable cord, No tenderness, No other Neurological: [employer] II-XII intact, nl speech, nl strength Medications Medications Current Medications Potassium Chloride/Dextrose/ Sod Cl 1,000 ml @ 50 mls/hr Q20H IV Last administered on 03/16/18at 08:57; Admin Dose 50 MLS/HR; Start 03/13/18 at 19:48 IV Flush (NS 3 ml) 3 ml PER PROTOCOL IV ; Start 03/13/18 at 20:00 Ondansetron HCl (Zofran Inj) 4 mg Q6H PRN IV NAUSEA AND/OR VOMITING; Start 03/13/18 at 20:00 Acetaminophen (Tylenol Tab) 650 mg Q6H PRN PO PAIN LEVEL 1-3 OR FEVER; Start 03/13/18 at 20:00 Acetaminophen/ Hydrocodone Bitart ([place] (5/325)) 1 tab Q6H PRN PO MODERATE PAIN LEVEL 4-6; Start 03/13/18 at 20:00 Docusate Sodium (Colace) 100 mg Q12H PRN PO CONSTIPATION; Start 03/13/18 at 20:00 Zolpidem Tartrate (Ambien) 5 mg QHS PRN PO SLEEP; Start 03/13/18 at 20:00 Vancomycin HCl (Vanco Iv Per Pharmacy) VANCOMYCIN PER PHARMACY PER PROTOCOL XX ; Start 03/13/18 at 20:00 Diltiazem HCl 125 ml @ 5 mls/hr Q24H IV Last administered on 03/15/18 01:03; Admin Dose 5 MLS/HR; Start 03/13/18 at 20:00; Status Hold Benztropine Mesylate (Cogentin) 1 mg DAILY PO Last administered on 03/16/18 08:46; Admin Dose 1 MG; Start 03/14/18 at 09:00 Haloperidol (Haldol) 5 mg TID PO Last administered on 03/16/18 13:40; Admin Dose 5 MG; Start 03/13/18 at 21:00 Morphine Sulfate (morphine) 2 mg Q4H PRN IV SEVERE PAIN LEVEL 7-10; Start 03/13 at 22:00 Senna/Docusate Sodium (Senokot-S) 2 tab HS PO Last administered on 03/15/18 20:40; Admin Dose 2 TAB; Start 03/14/18 at 21:00 Polyethylene Glycol (Miralax) 17 gm BID PO Last administered on 03/16/18 08:47; Admin Dose 17 GM; Start 03/14/18 at 21:00 Lactobacillus Acidophilus/ Rhamnosus (Culturelle) 1 cap BID PO Last administered on 03/16/18 08:46; Admin Dose 1 CAP; Start 03/15/18 at 21:00 Tamsulosin HCl (Flomax) 0.4 mg HS PO Last administered on 03/15/18 20:40; Admin Dose 0.4 MG; Start 03/14/18 at 21:00 Metoprolol Tartrate (Lopressor) 50 mg BID PO Last administered on 03/16/18 08:46; Admin Dose 50 MG; Start 03/15/18 at 21:00 Levofloxacin (Levaquin) 500 mg DAILY@06 PO Last administered on 03/16/18 05:37; Admin Dose 500 MG; Start 03/15/18 at 10:30 Vancomycin/Sodium Chloride 250 ml @ 125 mls/hr Q24H IVPB Last administered on 03/16/18 13:40; Admin Dose 125 MLS/HR; Start 03/15/18 at 14:30 Enoxaparin Sodium (Lovenox) 60 mg Q24H SC Last administered on 03/16/18at 10:57; Admin Dose 60 MG; Start 03/16/18 at 09:00 Potassium Chloride (Potassium Chloride Pwd/Soln) 40 meq DAILY PO Last administered on 03/16/18at 08:47; Admin Dose 40 MEQ; Start 03/15/18 at 17:00 DEON HAN MD Mar 16, 2018 13:54
--- NOTE | 2018-03-16 15:07 | NUR ---
Case Mngt: Spoke with patient at bedside briefly and he wanted me to talk to his son Willie at [phone]. Called Willie's phone number twice but no answer, unable to leave a message-no voicemail. Spoke with [facility] [facility]([phone]) and confirmed that patient lived in that facility, he also said that patient was at [facility] last year. Called [facility] at [phone] and spoke with Dione and confirmed that patient was there before. Faxed SNF referral to Dione at [phone], referral was received. Per Dione, she will take the patient back when he is ready for discharge.
--- NOTE | 2018-03-16 15:21 | NUR ---
Case Mngt F/U: Patient's son Willie called back([phone]). Spoke with him and stated that he wants his father to go back to [facility] if needed. Informed him that referral has been faxed and Dione with [facility] ([phone]) accepted the referral.
--- NOTE | 2018-03-16 16:15 | CONS ---
Assessment/Plan Assessment/Plan Hospital Course (Demo Recall) 72 year old presenting with fever and rapid afib, and has remained in afib since presentation. Impression: Persistent afib, now rate controlled Sepsis, improved Probable hypertension, based on blood pressure readings on metoprolol Moderate pulmonary hypertension Moderate aortic regurgitation Recommendations: Continue metoprolol for rate control CHADS-VASC score is 2 (age, hypertension). He is at moderately high risk of CVA. Will initiate Eliquis 5 mg po bid and stop enoxaparin. Stable for discharge from cardiology standpoint, he needs no further cardiac workup Would advise on exercise and diet and lifestyle, but I do not think he would be able to participate in such a discussion meaningfully Consultation Date/Type/Reason Admit Date/Time Mar 13, 2018 at 15:21 Date of Consultation: Mar 16, 2018 Type of Consult Cardiology Reason for Consultation atrial fibrillation Requesting Provider: PHIL HAN MD Date/Time of Note DATE: 03/16/18 TIME: 16:03 Hx of Present Illness 72 yo man brought into the ED from board and care for palpitations and fever. Initial ekg showed rapid atrial fib at 141 bpm, and he has been treated for UTI with sepsis. He is on metoprolol, and heart rate now around 100 on last rhythm strip. Patient unable to provide meaningful history other than "I think I'm alive". Denies chest pain or palpitations. Echo reviewed, he has normal LV systolic function, moderate tricuspid regurgitation with moderate pulmonary hypertension, moderate aortic regurgitation, left atrial enlargement Constitutional: no complaints Eyes: no complaints ENT: no complaints Respiratory: no complaints Cardiovascular: no complaints Gastrointestinal: no complaints Genitourinary: no complaints Musculoskeletal: no complaints Skin: no complaints Neurologic: no complaints Endocrine: no complaints Lymphatic: no complaints Psychological: no complaints Immunologic: no complaints Past Medical History Medical History: other (schizophrenia) Home Meds Reported Medications Benztropine Mesylate* (Benztropine Mesylate*) 1 Mg Tablet, 1 MG PO DAILY, TAB 03/13/18 Zolpidem Tartrate* (Ambien*) 5 Mg Tablet, 5 MG PO QHS PRN for INSOMNIA, #30 TAB 03/13/18 Haloperidol* (Haldol*) 5 Mg Tab, 5 MG PO TID, TAB 03/13/18 Medications Current Medications Potassium Chloride/Dextrose/ Sod Cl 1,000 ml @ 50 mls/hr Q20H IV Last administered on 03/16/18at 08:57; Admin Dose 50 MLS/HR; Start 03/13/18 at 19:48 IV Flush (NS 3 ml) 3 ml PER PROTOCOL IV ; Start 03/13/18 at 20:00 Ondansetron HCl (Zofran Inj) 4 mg Q6H PRN IV NAUSEA AND/OR VOMITING; Start 03/13/18 at 20:00 Acetaminophen (Tylenol Tab) 650 mg Q6H PRN PO PAIN LEVEL 1-3 OR FEVER; Start 03/13/18 at 20:00 Acetaminophen/ Hydrocodone Bitart ([place] (5/325)) 1 tab Q6H PRN PO MODERATE PAIN LEVEL 4-6; Start 03/13/18 at 20:00 Docusate Sodium (Colace) 100 mg Q12H PRN PO CONSTIPATION; Start 03/13/18 at 20:00 Zolpidem Tartrate (Ambien) 5 mg QHS PRN PO SLEEP; Start 03/13/18 at 20:00 Diltiazem HCl 125 ml @ 5 mls/hr Q24H IV Last administered on 03/15/18at 01:03; Admin Dose 5 MLS/HR; Start 03/13/18 at 20:00; Status Hold Benztropine Mesylate (Cogentin) 1 mg DAILY PO Last administered on 03/16/18at 08:46; Admin Dose 1 MG; Start 03/14/18 at 09:00 Haloperidol (Haldol) 5 mg TID PO Last administered on 03/16/18at 13:40; Admin Dose 5 MG; Start 03/13/18 at 21:00 Morphine Sulfate (morphine) 2 mg Q4H PRN IV SEVERE PAIN LEVEL 7-10; Start 03/13/18 at 22:00 Senna/Docusate Sodium (Senokot-S) 2 tab HS PO Last administered on 03/15/18at 2 0:40; Admin Dose 2 TAB; Start 03/14/18 at 21:00 Polyethylene Glycol (Miralax) 17 gm BID PO Last administered on 03/16/18 08:47; Admin Dose 17 GM; Start 03/14/18 at 21:00 Lactobacillus Acidophilus/ Rhamnosus (Culturelle) 1 cap BID PO Last administered on 1/23/19at 08:46; Admin Dose 1 CAP; Start 03/15/18 at 21:00 Tamsulosin HCl (Flomax) 0.4 mg HS PO Last administered on 03/15/18at 20:40; Admin Dose 0.4 MG; Start 03/14/18 at 21:00 Metoprolol Tartrate (Lopressor) 50 mg BID PO Last administered on 03/16/18at 08:46; Admin Dose 50 MG; Start 03/15/18 at 21:00 Levofloxacin (Levaquin) 500 mg DAILY@06 PO Last administered on 03/16/18at 05:37; Admin Dose 500 MG; Start 03/15/18 at 10:30 Enoxaparin Sodium (Lovenox) 60 mg Q24H SC Last administered on 03/16/18at 10:57; Admin Dose 60 MG; Start 03/16/18 at 09:00 Potassium Chloride (Potassium Chloride Pwd/Soln) 40 meq DAILY PO Last administered on 03/16/18at 08:47; Admin Dose 40 MEQ; Start 03/15/18 at 17:00 Allergies: Coded Allergies: Penicillins (Verified Allergy, Unknown, 03/13/18) Family History Significant Family History: no pertinent family hx Social History Smoking Status: Former smoker Exam/Review of Systems Vital Signs Vitals Vital Signs Date Temp Pulse Resp B/P (MAP) Pulse Ox O2 O2 Flow FiO2 Time Delivery Rate 03/16/18 97.6 69 20 132/76 100 Room Air 15:07 (94) 03/13/18 2 13:17 Intake and Output 03/15/18 03/15/18 03/16/18 1515:00 23:00 07:00 IntakeIntake Total 100 ml 695 ml OutputOutput Total 1200 ml 1000 ml BalanceBalance -1100 ml -305 ml Exam Constitutional: alert, frail Psych: nl mood/affect Head: normocephalic, atraumatic Eyes: nl conjunctiva, EOMI, nl lids, nl sclera ENMT: nl external ears & nose, nl lips & teeth, nl nasal mucosa & septum Neck: supple; No jvd, No bruits Respiratory: clear to auscultation, normal air movement Cardiovascular: regular rate and rhythm, nl pulses; No murmurs/extra sounds Gastrointestinal: soft, nl liver, spleen, non-tender Musculoskeletal: nl extremities to inspection Extremities: normal pulses; No edema Neurological: nl mental status, nl speech Skin: No rash or lesions Lymph: nl lymph nodes Labs Result Diagram: 03/16/18 0513 03/16/18 0513 Results 24hrs Laboratory Tests Test 03/16/18 05:13 White Blood Count 8.7 # Red Blood Count 3.56 L Hemoglobin 11.7 L Hematocrit 34.5 L Mean Corpuscular Volume 96.9 Mean Corpuscular Hemoglobin 32.9 Mean Corpuscular Hemoglobin Concent 33.9 Red Cell Distribution Width 11.7 Platelet Count 201 Mean Platelet Volume 9.9 Immature Granulocytes % 0.600 H Neutrophils % 74.8 Lymphocytes % 10.5 L Monocytes % 10.8 Eosinophils % 3.1 Basophils % 0.2 Nucleated Red Blood Cells % 0.0 Immature Granulocytes # 0.050 H Neutrophils # 6.5 Lymphocytes # 0.9 Monocytes # 0.9 Eosinophils # 0.3 Basophils # 0.0 Nucleated Red Blood Cells # 0.0 Sodium Level 141 Potassium Level 3.6 Chloride Level 105 Carbon Dioxide Level 25 Anion Gap 11 Blood Urea Nitrogen 25 #H Creatinine 0.88 Est Glomerular Filtrat Rate mL/min > 60 Glucose Level 108 Calcium Level 9.0 Magnesium Level 1.7 Troponin I 0.025 YOLANDA LINDQUIST Mar 16, 2018 16:15
[2018-03-16] MEDS: DILTIAZEM 30 MG TAB PO SCH (19:30)
[2018-03-16] MEDS ORDERED: DILTIAZEM-D5W 125MG/125ML DRIP 125 ML IV SCH (19:30)
--- NOTE | 2018-03-16 19:48 | NUR ---
RN NOTE PT HEART RATE GOES UP NON SUSTAINED UP TO 170S , CALLED DR LESLIE , RESUME THE CARDIZEM DRIP , PT NOT HAVING ANY CHEST PAIN OR DISCOMFORT .CARRIED OUT THE ORDER.
[2018-03-16] MEDS: APIXABAN 5 MG TABLET PO SCH (21:00)
[2018-03-16] MEDS: TAMSULOSIN (SR) 0.4 MG CAP PO SCH (21:00)
[2018-03-16] MEDS: SENNA/DOCUSATE NA (8.6MG/50MG) TAB PO SCH (21:00)
--- NOTE | 2018-03-16 21:44 | NUR ---
RN NOTE PATIENT REFUSED MEDICATIONS, VERY ANGRY AND YELLING USING "F" WORDS TELLING ME TO TAKE THE MEDS IF I WANT, HE ALSO STATED IF I DO NOT LEAVE HIM ALONE HE WILL "F" KICK ME. EXPLANATION WHY HE SHOULD TAKE HIS MEDS GIVEN, AND PATIENT INSISTED WITH SAYING "F" WORDS TELLING ME TO LEAVE HIM ALONE.
[2018-03-17] VITALS (9 sets, daily range): BP systolic 123–145; BP diastolic 62–105; PULSE 58–110; RESP 18–20
[2018-03-17] MEDS: DILTIAZEM 30 MG TAB PO SCH ×2 (01:07→06:00)
[2018-03-17] MEDS: METOPROLOL 50 MG TAB PO SCH ×4 (01:08→21:17)
[2018-03-17] MEDS: D5W-0.45 NACL + KCL 20 MEQ 1,000 ML IV SCH ×2 (05:40→08:50)
[2018-03-17] MEDS: LEVOFLOXACIN 500 MG TAB PO SCH (06:08)
--- NOTE | 2018-03-17 07:44 | NUR ---
END OF SHIFT RN NOTE PATIENT ALERT AND ORIENTED X 2-3, DENIED PAIN, RUDE AND USES "F" WORDS WHENEVER IT IS TIME TO GIVE HIM PERSONAL CARE OR DURING MEDICATION ADMINISTRATION, AND REFUSES CARE SOMETIMES. PATIENT HAD 10 BEATS OF V-TACH AT 0158, AND 6 BEATS AT 0400 THIS MORNING, ASYMPTOMATIC, PATIENT WAS CALM IN BED. [employer] MACHINE LEXA RODRIGUEZ H. NOTIFIED, NO NEW ORDER WERE GIVEN. BED IN THE LOWEST POSITION WITH BRAKES ENGAGED, HOURLY ROUNDING AND BED ALARM IN PLACE. ENDORSED TO DAY SHIFT RN.
[2018-03-17] MEDS: HALOPERIDOL 5 MG TAB PO SCH ×3 (08:21→21:16)
[2018-03-17] MEDS: APIXABAN 5 MG TABLET PO SCH ×2 (08:22→21:16)
[2018-03-17] MEDS: BALSAM PERU/CASTOR OIL 60 GM TUBE TOP SCH ×2 (08:50→21:17)
[2018-03-17] MEDS: POLYETHYLENE GLYCOL 17 GM PACKET PO SCH ×2 (08:50→21:17)
[2018-03-17] MEDS: BENZTROPINE 1 MG TAB PO SCH (08:51)
[2018-03-17] MEDS: POTASSIUM CHLORIDE 20 MEQ POWDER FOR ORAL SOLN PO SCH (09:00)
[2018-03-17] MEDS: LACTOBACILLUS RHAMNOSUS CAP PO SCH ×2 (09:00→21:16)
--- NOTE | 2018-03-17 10:51 | CONS ---
Assessment/Plan Assessment/Plan Hospital Course (Demo Recall) 72 year old presenting with fever and rapid afib, and has remained in afib since presentation. Rate fast last night, now controlled. Impression: Persistent afib, now rate controlled Sepsis, improved Probable hypertension, based on blood pressure readings on metoprolol Moderate pulmonary hypertension Moderate aortic regurgitation Recommendations: Change metoprolol to 50 mg q8 hours Diltiazem po available as a prn Continue Eliquis for CVA prophylaxis (CHADS-VASC score is 2) Stable for discharge from cardiology standpoint, he needs no further cardiac workup Consultation Date/Type/Reason Admit Date/Time Mar 13, 2018 at 15:21 Initial Consult Date 03/16/18 Type of Consult Cardiology Requesting Provider: DEON HAN MD Date/Time of Note DATE: 03/17/18 TIME: 10:48 24 HR Interval Summary Free Text/Dictation Overnight patient became tachycardic and diltiazem drip started, this am he was actually bradycardic in 50's. Now HR in 80's as oral meds held. Subjective hx not possible: pt non-verbal Exam/Review of Systems Vital Signs Vitals Vital Signs Date Temp Pulse Resp B/P (MAP) Pulse Ox O2 O2 Flow FiO2 Time Delivery Rate 03/17/18 68 08:17 03/17/18 98.3 20 145/82 100 Room Air 07:44 (103) 03/13/18 2 13:17 Intake and Output 03/16/18 03/16/18 03/17/18 1515:00 23:00 07:00 IntakeIntake Total 300 ml 1035 ml OutputOutput Total 1200 ml 1000 ml BalanceBalance -900 ml 35 ml Exam Constitutional: frail, other (arousable) Psych: no complaints Head: normocephalic, atraumatic ENMT: nl external ears & nose Neck: No jvd, No bruits Respiratory: clear to auscultation, normal air movement Cardiovascular: irregular rhythm; No murmurs/extra sounds Gastrointestinal: soft, nl liver, spleen, non-tender Musculoskeletal: nl extremities to inspection Extremities: No edema Skin: nl turgor Labs Result Diagram: 03/16/18 0513 03/16/18 0513 YOLANDA LINDQUIST Mar 17, 2018 10:51
[2018-03-17] MEDS ORDERED: DILTIAZEM 30 MG TAB PO PRN (11:00)
--- NOTE | 2018-03-17 14:36 | PN ---
Date/Time of Note Date/Time of Note DATE: 03/17/18 TIME: 14:31 Assessment/Plan VTE Prophylaxis Risk score (from Ns)>0 risk: 7 SCD applied (from Ns): Yes Pharmacological prophylaxis: apixaban Lines/Catheters IV Catheter Type (from Nrs): Peripheral IV Urinary Cath still in place: No Assessment/Plan Assessment/Plan 1. Atrial fibrillation, not well controlled VR, metoprolol is increased, on eliquis 2. Pulmonary hypertension 3. Moderate AI, follow up with cardiology 4. Psychiatric illness-likely schizophrenia, stable 5. Acute kidney disease, resolved 6. Possible UTI, on levaquin, leukocytosis resolved 7. DVT prophylaxis: eliquis Result Diagram: 03/16/18 0503/16/18 05 Results 24hrs Laboratory Tests Test 03/17/18 14:18 White Blood Count Pending Red Blood Count Pending Hemoglobin Pending Hematocrit Pending Mean Corpuscular Volume Pending Mean Corpuscular Hemoglobin Pending Mean Corpuscular Hemoglobin Concent Pending Red Cell Distribution Width Pending Platelet Count Pending Mean Platelet Volume Pending Subjective 24 Hr Interval Summary Free Text/Dictation VR 190s last night that he got cardizem drip. Drip is stopped this morning and m etoprolol dosage is increased Exam/Review of Systems Exam Vitals Vital Signs Date Temp Pulse Resp B/P (MAP) Pulse Ox O2 O2 Flow FiO2 Time Delivery Rate 03/17/18 67 12:47 03/17/18 97.7 20 138/105 98 Room Air 11:27 (116) 03/13/18 2 13:17 Intake and Output 03/16/18 03/16/18 03/17/18 1515:00 23:00 07:00 IntakeIntake Total 300 ml 1035 ml OutputOutput Total 1200 ml 1000 ml BalanceBalance -900 ml 35 ml Constitutional: alert, well developed Head: normocephalic, atraumatic Eyes: nl conjunctiva, EOMI, nl lids, PERRL ENMT: nl external ears & nose, nl lips & teeth, nl nasal mucosa & septum Neck: supple, non-tender Respiratory: clear to auscultation, normal air movement; No congested cough, No crackles/rales, No diminished breath sounds, No intercostal retraction, No labored breathing, No respirations, No tactile fremitus, No wheezing, No other Cardiovascular: nl pulses, irregular rhythm; No bruits, No diastolic murmur, No edema, No gallop, No jugular venous distention (JVD), No murmurs/extra sounds, No rub, No systolic murmur, No S3, No S4, No other Gastrointestinal: soft, nl liver, spleen, non-tender; No ascites, No bowel sounds, No distended, No firm, No hepatomegaly, No mass, No rebound or guarding, No splenomegaly, No surgical scars, No tender, No other Musculoskeletal: nl extremities to inspection Extremities: normal pulses; No calf tenderness, No cyanosis, No clubbing, No edema, No pitting pedal edema, No palpable cord, No tenderness, No other Neurological: TOOL AND GAUGE INSPECTOR II-XII intact, confused Results Results 24hrs Laboratory Tests Test 03/17/18 14:18 White Blood Count Pending Red Blood Count Pending Hemoglobin Pending Hematocrit Pending Mean Corpuscular Volume Pending Mean Corpuscular Hemoglobin Pending Mean Corpuscular Hemoglobin Concent Pending Red Cell Distribution Width Pending Platelet Count Pending Mean Platelet Volume Pending DEON HAN MD Mar 17, 2018 14:36
--- NOTE | 2018-03-17 18:45 | NUR ---
RN NOTE CORI LINARES DC , PT HAD 2 BM , COMBATIVE AND NON COMPLIANCE WITH PLAN OF CARE , REFUSED SOME OF HIS MEDS . POOR APPETITE . REPOSITIONED Q 2 HOURS .
--- NOTE | 2018-03-17 19:10 | NUR ---
RN NOTE INFORMED DR LESLIE REGARDING COUPLET AND TRIPLET AND 7 BEAST OF V TACHS , SHE SAID DO NOT CALL THE DR UNLESS IS MORE THAN 15 BEATS OF V TACH , NO NEW ORDER GIVEN.
[2018-03-17] MEDS: TAMSULOSIN (SR) 0.4 MG CAP PO SCH (21:16)
[2018-03-17] MEDS: SENNA/DOCUSATE NA (8.6MG/50MG) TAB PO SCH (21:17)
[2018-03-18] VITALS (15 sets, daily range): BP systolic 101–126; BP diastolic 58–68; PULSE 56–172; RESP 17–20
[2018-03-18] MEDS ORDERED: HYDROmorphONE 0.5 MG/0.5 ML SYG IV ONE (02:51)
[2018-03-18] MEDS: LEVOFLOXACIN 500 MG TAB PO SCH (05:54)
--- NOTE | 2018-03-18 07:40 | NUR ---
RN NOTES: CHECKED BLADDER SCAN URINE =934ML. ORDERS F/C INSERTION DONE BY DOM/ICU-RN, 16 FR. DILAUDID 0.5MG X1 IV GIVEN PRIOR. SENT URINE FOR UA AND CX. AWARE OF JN=906'S AT THE TIME URGENT FOR URINATION AND UNABLE. PT HAD AN EPISODE OF 6 BEATS V-TACH, STOPPED, THEN 16 BEATS V-TACH. RIGHT AFTER AT 2055. ASSESSMENT DONE PT WAS CALMED, ASYMPTOMATIC, XA=692'S. CHARGE NURSE AWARE, SAID NO NEED TO CALL AT THIS TIME. CONTINUE TO MONITOR PT. HR WENT TO 88'S AFTER F/C INSERTED. VS STABLE. STILL AFIB CONTROLLED. ENDORSED.
[2018-03-18] MEDS: BENZTROPINE 1 MG TAB PO SCH (08:55)
[2018-03-18] MEDS: POLYETHYLENE GLYCOL 17 GM PACKET PO SCH ×2 (08:55→22:42)
[2018-03-18] MEDS: LACTOBACILLUS RHAMNOSUS CAP PO SCH ×2 (08:55→22:43)
[2018-03-18] MEDS: METOPROLOL 50 MG TAB PO SCH ×3 (08:55→22:42)
[2018-03-18] MEDS: HALOPERIDOL 5 MG TAB PO SCH ×3 (08:55→22:40)
[2018-03-18] MEDS: POTASSIUM CHLORIDE 20 MEQ POWDER FOR ORAL SOLN PO SCH ×2 (08:55→09:00)
[2018-03-18] MEDS: APIXABAN 5 MG TABLET PO SCH ×2 (08:56→22:40)
--- NOTE | 2018-03-18 09:13 | CONS ---
Assessment/Plan Assessment/Plan Hospital Course (Demo Recall) 72 year old presenting with fever and rapid afib, and has remained in afib since presentation. Rate is well controlled at night, during the day though he does have more rapid rates. Impression: Persistent afib, not controlled Short runs of NSVT, with normal LV function Sepsis, improved Probable hypertension, based on blood pressure readings on metoprolol Moderate pulmonary hypertension Moderate aortic regurgitation Recommendations: Add diltiazem tid to metoprolol tid Will give one dose of magnesium 2g IV, as hypomagnesemia may be making rate control more difficult Continue Eliquis for CVA prophylaxis (CHADS-VASC score is 2) Stable for discharge from cardiology standpoint, he needs no further cardiac workup Consultation Date/Type/Reason Admit Date/Time Mar 13, 2018 at 15:21 Initial Consult Date 03/16/18 Type of Consult Cardiology Requesting Provider: DEON HAN MD Date/Time of Note DATE: 03/18/18 TIME: 09:11 24 HR Interval Summary Subjective hx not possible: pt non-verbal Exam/Review of Systems Vital Signs Vitals Vital Signs Date Temp Pulse Resp B/P (MAP) Pulse Ox O2 O2 Flow FiO2 Time Delivery Rate 03/18/18 98.2 85 20 113/68 97 Room Air 07:47 (83) Intake and Output 03/17/18 03/17/18 03/18/18 1515:00 23:00 07:00 IntakeIntake Total 300 ml 500 ml OutputOutput Total 1300 ml 1550 ml BalanceBalance -1000 ml -1050 ml Exam Constitutional: non-verbal Head: normocephalic, atraumatic Eyes: nl conjunctiva, nl lids ENMT: nl external ears & nose Neck: No jvd, No bruits Respiratory: clear to auscultation Cardiovascular: irregular rhythm; No jugular venous distention (JVD), No murmurs/extra sounds Gastrointestinal: soft, non-tender Musculoskeletal: nl extremities to inspection Skin: nl turgor Labs Result Diagram: 03/17/18 1418 03/18/18 0528 Results 24hrs Laboratory Tests Test 03/17/18 14:18 03/18/18 03:30 03/18/18 05:28 White Blood Count 8.7 Red Blood Count 3.89 L Hemoglobin 12.8 L Hematocrit 36.8 L Mean Corpuscular Volume 94.6 Mean Corpuscular Hemoglobin 32.9 Mean Corpuscular Hemoglobin Concent 34.8 Red Cell Distribution Width 11.6 Platelet Count 249 # Mean Platelet Volume 10.0 Immature Granulocytes % 0.800 H Neutrophils % 75.5 Lymphocytes % 10.5 L Monocytes % 10.0 Eosinophils % 2.9 Basophils % 0.3 Nucleated Red Blood Cells % 0.0 Immature Granulocytes # 0.070 H Neutrophils # 6.6 Lymphocytes # 0.9 Monocytes # 0.9 Eosinophils # 0.3 Basophils # 0.0 Nucleated Red Blood Cells # 0.0 Sodium Level 135 138 Potassium Level 3.8 3.7 Chloride Level 102 103 Carbon Dioxide Level 23 24 Anion Gap 10 11 Blood Urea Nitrogen 17 20 Creatinine 0.71 1.03 Est Glomerular Filtrat Rate mL/min > 60 > 60 Glucose Level 142 107 Calcium Level 8.8 9.1 Urine Color YELLOW Urine Clarity CLEAR Urine pH 6.0 Urine Specific [place] 1.009 Urine Ketones NEGATIVE Urine Nitrite NEGATIVE Urine Bilirubin NEGATIVE Urine Urobilinogen 1+ H Urine Leukocyte Esterase NEGATIVE Urine Microscopic RBC 30 H Urine Microscopic WBC 1 Urine Bacteria FEW A Urine Hemoglobin 3+ H Urine Glucose NEGATIVE Urine Total Protein NEGATIVE YOLANDA LINDQUIST Mar 18, 2018 09:13
[2018-03-18] MEDS ORDERED: MAGNESIUM SULFATE 2 GM/50 ML 50 ML IVPB ONE (11:00)
[2018-03-18] MEDS: BALSAM PERU/CASTOR OIL 60 GM TUBE TOP SCH ×2 (11:41→22:44)
[2018-03-18] MEDS: DILTIAZEM 30 MG TAB PO SCH ×3 (11:41→22:43)
--- NOTE | 2018-03-18 13:48 | PN ---
Date/Time of Note Date/Time of Note DATE: 03/18/18 TIME: 13:39 Assessment/Plan VTE Prophylaxis Risk score (from Nsg)>0 risk: 6 SCD applied (from Ns): Yes Pharmacological prophylaxis: rivaroxaban Lines/Catheters IV Catheter Type (from Nrsg): Peripheral IV Urinary Cath still in place: Yes Reason Cath still needed: terminal illness/intractable pain Assessment/Plan Assessment/Plan 1. Atrial fibrillation: not rate controlled. rate as high as in 170s this am. Dilt was added to BB. Mg was also given 2. MARIANNA: resolved 3. Psychiatric illness-likely schizophrenia, stable 4 SIRS: resolved. CXR, UA, ur cx, CXR neg. leukocytosis resolved. Will d/c abx 5. Echo with mod AR, MR and TR as well as PULM HTN: cardiology on board DVT prophylaxis: eliquis Result Diagram: 03/17/18 1418 03/18/18 0528 Results 24hrs Laboratory Tests Test 03/17/18 14:18 03/18/18 03:30 03/18/18 05:28 White Blood Count 8.7 Red Blood Count 3.89 L Hemoglobin 12.8 L Hematocrit 36.8 L Mean Corpuscular Volume 94.6 Mean Corpuscular Hemoglobin 32.9 Mean Corpuscular Hemoglobin Concent 34.8 Red Cell Distribution Width 11.6 Platelet Count 249 # Mean Platelet Volume 10.0 Immature Granulocytes % 0.800 H Neutrophils % 75.5 Lymphocytes % 10.5 L Monocytes % 10.0 Eosinophils % 2.9 Basophils % 0.3 Nucleated Red Blood Cells % 0.0 Immature Granulocytes # 0.070 H Neutrophils # 6.6 Lymphocytes # 0.9 Monocytes # 0.9 Eosinophils # 0.3 Basophils # 0.0 Nucleated Red Blood Cells # 0.0 Sodium Level 135 138 Potassium Level 3.8 3.7 Chloride Level 102 103 Carbon Dioxide Level 23 24 Anion Gap 10 11 Blood Urea Nitrogen 17 20 Creatinine 0.71 1.03 Est Glomerular Filtrat Rate mL/min > 60 > 60 Glucose Level 142 107 Calcium Level 8.8 9.1 Urine Color YELLOW Urine Clarity CLEAR Urine pH 6.0 Urine Specific [place] 1.009 Urine Ketones NEGATIVE Urine Nitrite NEGATIVE Urine Bilirubin NEGATIVE Urine Urobilinogen 1+ H Urine Leukocyte Esterase NEGATIVE Urine Microscopic RBC 30 H Urine Microscopic WBC 1 Urine Bacteria FEW A Urine Hemoglobin 3+ H Urine Glucose NEGATIVE Urine Total Protein NEGATIVE Exam/Review of Systems Exam Vitals Vital Signs Date Temp Pulse Resp B/P (MAP) Pulse Ox O2 O2 Flow FiO2 Time Delivery Rate 03/18/18 91 12:00 03/18/18 97.9 20 106/58 99 Room Air 11:37 (74) Intake and Output 03/17/18 03/17/18 03/18/18 1515:00 23:00 07:00 IntakeIntake Total 300 ml 500 ml OutputOutput Total 1300 ml 1550 ml BalanceBalance -1000 ml -1050 ml Constitutional: other (no distress) Psych: confusion Respiratory: clear to auscultation, normal air movement Cardiovascular: irregular rhythm Gastrointestinal: soft Extremities: normal pulses Results Results 24hrs Laboratory Tests Test 03/17/18 14:18 03/18/18 03:30 03/18/18 05:28 White Blood Count 8.7 Red Blood Count 3.89 L Hemoglobin 12.8 L Hematocrit 36.8 L Mean Corpuscular Volume 94.6 Mean Corpuscular Hemoglobin 32.9 Mean Corpuscular Hemoglobin Concent 34.8 Red Cell Distribution Width 11.6 Platelet Count 249 # Mean Platelet Volume 10.0 Immature Granulocytes % 0.800 H Neutrophils % 75.5 Lymphocytes % 10.5 L Monocytes % 10.0 Eosinophils % 2.9 Basophils % 0.3 Nucleated Red Blood Cells % 0.0 Immature Granulocytes # 0.070 H Neutrophils # 6.6 Lymphocytes # 0.9 Monocytes # 0.9 Eosinophils # 0.3 Basophils # 0.0 Nucleated Red Blood Cells # 0.0 Sodium Level 135 138 Potassium Level 3.8 3.7 Chloride Level 102 103 Carbon Dioxide Level 23 24 Anion Gap 10 11 Blood Urea Nitrogen 17 20 Creatinine 0.71 1.03 Est Glomerular Filtrat Rate mL/min > 60 > 60 Glucose Level 142 107 Calcium Level 8.8 9.1 Urine Color YELLOW Urine Clarity CLEAR Urine pH 6.0 Urine Specific [place] 1.009 Urine Ketones NEGATIVE Urine Nitrite NEGATIVE Urine Bilirubin NEGATIVE Urine Urobilinogen 1+ H Urine Leukocyte Esterase NEGATIVE Urine Microscopic RBC 30 H Urine Microscopic WBC 1 Urine Bacteria FEW A Urine Hemoglobin 3+ H Urine Glucose NEGATIVE Urine Total Protein NEGATIVE PERLA NARANJO MD Mar 18, 2018 13:48
--- NOTE | 2018-03-18 16:50 | NUR ---
CM NOTE PT HAS BEEN ACCEPTED AT [facility] PER [facility] BED IS AVAILABLE NOW. MAY TRANSFER TO [place] ONCE MEDICALLY CLEAR.
--- NOTE | 2018-03-18 18:45 | NUR ---
EOSS 1535- PT'S HEART RATE WENT DROPPED TO 41S-50S NON-SUSTAINED. NO S/S OF DISTRESS, PT ASLEEP IN BED. PT'S HEART RATE DROPPED AGAIN ONCE TO THE 30S NON SUSTAINED. DR. NARANJO MADE AWARE WITH NO NEW ORDER. CURRENTLY PT'S HEART RATE IS CONTROLLED. PT HAS BEEN SLEEPING THROUGHOUT THE DAY, LEWIS, AX3. MEDS GIVEN, REPOSITIONED, WOUND CARE DONE. HOURLY ROUNDING DONE, BED ALARM ON, CALL LIGHT WITHIN REACH.
[2018-03-18] MEDS: SENNA/DOCUSATE NA (8.6MG/50MG) TAB PO SCH (22:40)
[2018-03-18] MEDS: TAMSULOSIN (SR) 0.4 MG CAP PO SCH (22:43)
[2018-03-19] VITALS (9 sets, daily range): BP systolic 112–148; BP diastolic 64–91; PULSE 63–92; RESP 17–20
--- NOTE | 2018-03-19 00:10 | NUR ---
RN NOTES: CALLED DR. LINDQUIST TO REPORT PT HAD 23 BEATS OF V-TACH AT 2025, ZE=303'S. UNABLE TO REACH MD DUE TO THE OFFICE IS CLOSED. CALLED DR. MARROQUIN. ORDERS LABS STAT FOR BMP, TSH, MAG LEVEL BUT PT REFUSED BLOOD DRAWN. ASSESSMENT DONE. PT ALERT, ORIENTED TO NAME, PLACE, WHY HE IS HERE, THE PURPOSE OF BLOOD DRAW. PT SAID,"LEAVE ME ALONE" "DO YOU UNDERSTAND". INFORMED . B/P=113/67, RR=20, T=98.1, O2 SAT 98% ON RA, PAIN 0/10. AFIB CONTROLLED, HR=70'S. NON-COMPLIANT WITH REPOSITIONING EVERY 2HRS.
[2018-03-19] MEDS: LEVOFLOXACIN 500 MG TAB PO SCH (06:00)
--- NOTE | 2018-03-19 06:29 | NUR ---
RN NOTES: PT IS CALM IN BED,REFUSED LABS DRAW STAT LAST NIGHT. DR. MARROQUIN CAME TO VISIT PT AT BEDSIDE. AFIB CONTROLLED. F/C ON GRAVITY. WILL F/U WITH AM SHIFT.
--- NOTE | 2018-03-19 08:35 | NUR ---
Nurses Note: Pt. had 40 beats of V-Tach. Dr. Joseph is notified.
--- NOTE | 2018-03-19 08:56 | CONS ---
Assessment/Plan Assessment/Plan Assessment/Plan (Daily) Persistent afib - rate now controlled Short runs of NSVT, with normal LV function Sepsis, improved HTN Moderate pulmonary hypertension Moderate aortic regurgitation NSVT 03/17 Recommendations: COntinue diltiazem tid to metoprolol tid check magensium Continue Eliquis for CVA prophylaxis (CHADS-VASC score is 2) Stable for discharge from cardiology standpoint, he needs no further cardiac workup Consultation Date/Type/Reason Admit Date/Time Mar 13, 2018 at 15:21 Initial Consult Date 03/16/18 Type of Consult Cardiology Requesting Provider: DEON HAN MD Date/Time of Note DATE: 03/19/18 TIME: 08:55 24 HR Interval Summary Free Text/Dictation The patient with no cahnge Exam/Review of Systems Vital Signs Vitals Vital Signs Date Temp Pulse Resp B/P (MAP) Pulse Ox O2 O2 Flow FiO2 Time Delivery Rate 03/19/18 80 08:01 03/19/18 97.7 18 117/79 98 04:37 (92) 03/18/18 Room Air 15:02 Intake and Output 03/18/18 03/18/18 03/19/18 1515:00 23:00 07:00 IntakeIntake Total 720 ml 150 ml OutputOutput Total 2200 ml 1000 ml BalanceBalance -1480 ml -850 ml Labs Result Diagram: 03/17/18 1418 03/18/18 0528 Medications Medications Current Medications IV Flush (NS 3 ml) 3 ml PER PROTOCOL IV ; Start 03/13/18 at 20:00 Ondansetron HCl (Zofran Inj) 4 mg Q6H PRN IV NAUSEA AND/OR VOMITING; Start 03/13/18 at 20:00 Acetaminophen (Tylenol Tab) 650 mg Q6H PRN PO PAIN LEVEL 1-3 OR FEVER; Start 03/13/18 at 20:00 Acetaminophen/ Hydrocodone Bitart ([place] (5/325)) 1 tab Q6H PRN PO MODERATE PAIN LEVEL 4-6; Start 03/13/18 at 20:00 Docusate Sodium (Colace) 100 mg Q12H PRN PO CONSTIPATION; Start 03/13/18 at 20:00 Zolpidem Tartrate (Ambien) 5 mg QHS PRN PO SLEEP; Start 03/13/18 at 20:00 Benztropine Mesylate (Cogentin) 1 mg DAILY PO Last administered on 03/18/18 08:55; Admin Dose 1 MG; Start 03/14/18 at 09:00 Haloperidol (Haldol) 5 mg TID PO Last administered on 03/18/18 22:40; Admin Dose 5 MG; Start 03/13/18 at 21:00 Morphine Sulfate (morphine) 2 mg Q4H PRN IV SEVERE PAIN LEVEL 7-10; Start 03/13/18 at 22:00 Senna/Docusate Sodium (Senokot-S) 2 tab HS PO Last administered on 03/18/18 22:40; Admin Dose 2 TAB; Start 03/14/18 at 21:00 Polyethylene Glycol (Miralax) 17 gm BID PO Last administered on 03/18/18 22:42; Admin Dose 17 GM; Start 03/14/18 at 21:00 Lactobacillus Acidophilus/ Rhamnosus (Culturelle) 1 cap BID PO Last administered on 03/18/18 22:43; Admin Dose 1 CAP; Start 03/15/18 at 21:00 Tamsulosin HCl (Flomax) 0.4 mg HS PO Last administered on 03/18/18 22:43; Admin Dose 0.4 MG; Start 03/14/18 at 21:00 Potassium Chloride (Potassium Chloride Pwd/Soln) 40 meq DAILY PO Last administered on 03/16/18 08:47; Admin Dose 40 MEQ; Start 03/15/18 at 17:00 Apixaban (Eliquis) 5 mg BID PO Last administered on 03/18/18 22:40; Admin Dose 5 MG; Start 03/16/18 at 21:00 Metoprolol Tartrate (Lopressor) 50 mg TID PO Last administered on 03/18/18 22:42; Admin Dose 50 MG; Start 03/17/18 at 13:00 Levofloxacin (Levaquin) 250 mg DAILY@06 PO Last administered on 03/18/18 05:54; Admin Dose 250 MG; Start 03/18/18 at 06:00; Stop 03/19/18 at 10:00 Diltiazem HCl (Cardizem) 30 mg TID PO Last administered on 03/18/18 22:43; Admin Dose 30 MG; Start 03/18/18 at 09:15 SAMANTA DUFFY MD Mar 19, 2018 08:56
[2018-03-19] MEDS: BENZTROPINE 1 MG TAB PO SCH ×2 (09:00→10:39)
[2018-03-19] MEDS: LACTOBACILLUS RHAMNOSUS CAP PO SCH (09:00)
[2018-03-19] MEDS: POLYETHYLENE GLYCOL 17 GM PACKET PO SCH (09:00)
[2018-03-19] MEDS: BALSAM PERU/CASTOR OIL 60 GM TUBE TOP SCH (09:00)
[2018-03-19] MEDS: APIXABAN 5 MG TABLET PO SCH ×2 (09:00→10:40)
[2018-03-19] MEDS: POTASSIUM CHLORIDE 20 MEQ POWDER FOR ORAL SOLN PO SCH (09:00)
[2018-03-19] MEDS: HALOPERIDOL 5 MG TAB PO SCH ×3 (09:00→14:20)
[2018-03-19] MEDS: DILTIAZEM 30 MG TAB PO SCH ×3 (09:00→14:20)
[2018-03-19] MEDS: METOPROLOL 50 MG TAB PO SCH ×3 (09:00→14:23)
--- NOTE | 2018-03-19 09:10 | NUR ---
Nurses Note: Pt. refused morning Vital Signs and Morning Medications. Explained to patient benefits and importance of medication adherence. Pt. has psychiatric issues. Pt. is verbally abusive and non-compliant.
--- NOTE | 2018-03-19 09:15 | NUR ---
Received a call from Dr. Joseph who ordered Mag Lab Draw. Notified regarding pt's refusal of medication as well as lab draws. Will put the order in and try again.
[2018-03-19] MEDS ORDERED: ACET325T33 PO (10:28)
[2018-03-19] MEDS ORDERED: LACT1CAP28 PO (10:28)
[2018-03-19] MEDS ORDERED: POLY17PO6 PO (10:28)
[2018-03-19] MEDS ORDERED: TAMS-14 PO (10:28)
[2018-03-19] MEDS ORDERED: DILT30TA30 PO (10:28)
[2018-03-19] MEDS ORDERED: METO-429 PO (10:28)
[2018-03-19] MEDS ORDERED: APIX5TAB PO (10:28)
[2018-03-19] MEDS ORDERED: BALS60OI TOP (10:28)
[2018-03-19] MEDS ORDERED: ONDA4VIA6 IV (10:28)
[2018-03-19] MEDS ORDERED: DOCU-216 PO (10:28)
[2018-03-19] MEDS ORDERED: CEPASTAT LOZENGE MT PRN (10:30)
--- NOTE | 2018-03-19 10:30 | PDOCDIS ---
Discharge Instructions CONDITION [id number] Patient Condition: [id number] Guarded HOME CARE INSTRUCTIONS: [id number] Diet Instructions: Chdbo6m Low Fat /Cholesterol ACTIVITY: Gymzo6Lx Activity Restrictions: [id number] Slowly Increase Activity Rest between Activity Special Exercises FOLLOW UP/APPOINTMENTS Follow-up Plan Patient being discharged to [facility] OTHER ORDERS: Other Orders: PERLA NARANJO MD Mar 19, 2018 10:30
--- NOTE | 2018-03-19 10:36 | DS ---
Date/Time of Note Date/Time of Note DATE: 03/19/18 TIME: 10:32 Discharge Summary Admission/Discharge Info Admit Date/Time Mar 13, 2018 at 15:21 Discharge Date/Time Discharge Diagnosis 1. Atrial fibrillation: With RVR. Currently rate controlled. Continue met oprolol and diltiazem as well as apixaban 2. Status post SIRS: Resolved. Chest x-ray, urine culture and blood culture negative 3. History of schizophrenia/psychosis: Continue Cogentin and Haldol 4. BPH: Continue Flomax Hospital Course Patient was sent from SNF for palpitation and fever. He was found to be in atrial fibrillation with RVR. Throughout hospitalization he was followed with cardiology with adjustment of his medication. He will be discharged on metoprolol, diltiazem and apixaban. Infectious workup with chest x-ray, blood culture and urine culture were negative. He was empirically treated with antibiotic. He is WBC normalized and he has been afebrile. Patient with baseline altered mentation initially worsened, likely from sepsis/sepsis with unknown source. He appears to be at his baseline. Patient not able to care for himself and requires 24-hour assistance and as such he is going to be discharged to [facility]. . Home Meds Active Scripts Docusate Sodium (Dok) 100 Mg Capsule, 100 MG PO Q12H for 30 Days, CAP Prov:PERLA NARANJO MD 03/19/18 Balsam [place] Oil (Venelex Ointment) 60 Gm Oint..gm., 1 APPLIC TOP BID, #1 Prov:PERLA NARANJO MD 03/19/18 Polyethylene Glycol* (Miralax*) 17 Gm Powd.pack, 17 GM PO BID for 30 Days Prov:PERLA NARANJO MD 03/19/18 Ondansetron Hcl* (Ondansetron Hcl* Inj) 4 Mg/2 Ml Vial, 4 MG IV Q6H PRN for NAUSEA AND/OR VOMITING for 30 Days, VIAL Prov:PERLA NARANJO MD 03/19/18 Lactobacillus Rhamnosus GG (Culturelle) 1 Each Capsule, 1 CAP PO BID for 30 Days, CAP Prov:PERLA NARANJO MD 03/19/18 Acetaminophen* (Tylenol*) 325 Mg Tablet, 650 MG PO Q6H PRN for PAIN LEVEL 1-3 OR FEVER for 30 Days, TAB Prov:PERLA NARANJO MD 03/19/18 Tamsulosin Hcl* (Flomax*) 0.4 Mg Cap.er.24h, 0.4 MG PO HS for 30 Days, CAP Prov:PERLA NARANJO MD 03/19/18 Metoprolol Tartrate* (Lopressor*) 50 Mg Tab, 50 MG PO TID for 30 Days, TAB Prov:PERLA NARANJO MD 03/19/18 Apixaban* (Eliquis*) 5 Mg Tablet, 5 MG PO BID for 30 Days, TAB Prov:PERLA NARANJO MD 03/19/18 Diltiazem Hcl* (Cardizem*) 30 Mg Tablet, 30 MG PO TID for 30 Days, TAB Prov:PERLA NARANJO MD 03/19/18 Reported Medications Benztropine Mesylate* (Benztropine Mesylate*) 1 Mg Tablet, 1 MG PO DAILY, TAB 03/13/18 Zolpidem Tartrate* (Ambien*) 5 Mg Tablet, 5 MG PO QHS PRN for INSOMNIA, #30 TAB 03/13/18 Haloperidol* (Haldol*) 5 Mg Tab, 5 MG PO TID, TAB 03/13/18 Follow-up Plan Patient being discharged to [facility] Primary Care Provider Not On Staff Doctor PERLA NARANJO MD Mar 19, 2018 10:36
--- NOTE | 2018-03-19 11:23 | NUR ---
Case Mngt F/U: Spoke with Neema at [facility] ([phone])to inform her regarding discharge today and confirmed room number (RM 301-A). Spoke with Mary at [facility] ([phone]) and arranged transportation, slat pickler time at 2pm with trip# [id number]. Charge nurse notified. Called patient's son Willie ([phone]) to inform him regarding transfer to SNF.
--- NOTE | 2018-03-19 12:30 | NUR ---
Nurses Note: Called [facility] and gave report to Heavenly at [phone]. Pt. will be picked up at 0400pm.
[2018-03-19] MEDS ORDERED: morphine LIQ (10 MG/5 ML) CUP PO PRN (14:00)
--- NOTE | 2018-03-19 17:15 | NUR ---
Nurses Discharge Note: Pt. is being discharged to [facility] Room 301A. Pt. will be picked up via ambulance and EMT. Pt. verbally abusive during the shift and upon discharge. Pt. refused skin care and refused skin assessment and pictures. Pt. yelled at EMT and Nurse to be left alone. Pt. discharged with Jimenez Cath. IV access removed. Vital signs stable. Blood Pressure 123/60. Pt. Heart Rate 68. Room Air. No belongings with patient.
== END 2018-03-19 17:22 | DRG 871 ==
LOC: E/R 12:57 → 6WM 15:21
PROVIDERS: ADMIT Internal Medicine; ATTEND Internal Medicine
DX: A41.9 Sepsis, unspecified organism (principal); G93.41 Metabolic encephalopathy; N17.9 Acute kidney failure, unspecified; I47.2 Ventricular tachycardia; N13.8 Other obstructive and reflux uropathy; R65.20 Severe sepsis without septic shock; I48.91 Unspecified atrial fibrillation; F20.9 Schizophrenia, unspecified; N40.1 Benign prostatic hyperplasia with lower urinary tract symptoms; R33.8 Other retention of urine
CPT/HCPCS: 71045; 76775; 80048; 80053; 80202; 81001; 82550; 82553; 82607; 83036; 83605; 83690; 83735; 84100; 84443; 84484; 85025; 85610; 85730; 86592; 87040; 87081; 87086; 93005; 93306; 96374; 96375; 97162; J1170; J1650; J1956; J3370; J3475; J3480; J7030

== ENCOUNTER 2018-06-30 03:32 | Inpatient (IN) | payer MEDICARE, OTHER ==
[~2018-06-30] VITALS: Ht 182.9 cm; Wt 56.8 kg
[~2018-06-30 03:32] MED LIST: ACET325T33 PO; APIX5TAB PO; BALS60OI TOP; BENZ1TAB7 PO; DILT30TA30 PO; DOCU-216 PO; HALO5TAB23 PO; LACT1CAP28 PO; METO-429 PO; ONDA4VIA6 IV; POLY17PO6 PO; TAMS-14 PO; ZOLP5TAB PO
[2018-06-30] MEDS ORDERED: SODIUM CHLORIDE 0.9% 1L BAG IV* STA (03:42)
--- NOTE | 2018-06-30 05:42 | ERD ---
ER Documentation Chief Complaint Chief Complaint MOLLY 89 from [facility], called in for ALOC HPI This is a 9-year-old male brought in by was returns for altered level of consciousness. Patient himself is altered at baseline and cannot provide any relevant history. History is per EMS run sheet ROS All systems reviewed and are negative except as per history of present illness. Medications Home Meds Active Scripts Docusate Sodium (Dok) 100 Mg Capsule, 100 MG PO Q12H for 30 Days, CAP Prov:PERLA NARANJO MD 03/19/18 Balsam [place] Oil (Venelex Ointment) 60 Gm Oint..gm., 1 APPLIC TOP BID, #1 Prov:PERLA NARANJO MD 03/19/18 Polyethylene Glycol* (Miralax*) 17 Gm Powd.pack, 17 GM PO BID for 30 Days Prov:PERLA NARANJO MD 03/19/18 Ondansetron Hcl* (Ondansetron Hcl* Inj) 4 Mg/2 Ml Vial, 4 MG IV Q6H PRN for NAUSEA AND/OR VOMITING for 30 Days, VIAL Prov:PERLA NARANJO MD 03/19/18 Lactobacillus Rhamnosus GG (Culturelle) 1 Each Capsule, 1 CAP PO BID for 30 Days, CAP Prov:PERLA NARANJO MD 03/19/18 Acetaminophen* (Tylenol*) 325 Mg Tablet, 650 MG PO Q6H PRN for PAIN LEVEL 1-3 OR FEVER for 30 Days, TAB Prov:PERLA NARANJO MD 03/19/18 Tamsulosin Hcl* (Flomax*) 0.4 Mg Cap.er.24h, 0.4 MG PO HS for 30 Days, CAP Prov:PERLA NARANJO MD 03/19/18 Metoprolol Tartrate* (Lopressor*) 50 Mg Tab, 50 MG PO TID for 30 Days, TAB Prov:PERLA NARANJO MD 03/19/18 Apixaban* (Eliquis*) 5 Mg Tablet, 5 MG PO BID for 30 Days, TAB Prov:PERLA NARANJO MD 03/19/18 Diltiazem Hcl* (Cardizem*) 30 Mg Tablet, 30 MG PO TID for 30 Days, TAB Prov:PERLA NARANJO MD 03/19/18 Reported Medications Benztropine Mesylate* (Benztropine Mesylate*) 1 Mg Tablet, 1 MG PO DAILY, TAB 03/13/18 Zolpidem Tartrate* (Ambien*) 5 Mg Tablet, 5 MG PO QHS PRN for INSOMNIA, #30 TAB 03/13/18 Haloperidol* (Haldol*) 5 Mg Tab, 5 MG PO TID, TAB 03/13/18 Allergies Allergies: Coded Allergies: Penicillins (Verified Allergy, Unknown, 03/13/18) PMhx/Soc Hx Neurological Disorder: No Hx Respiratory Disorders: No Hx Cardiac Disorders: No Hx Psychiatric Problems: Yes (Possible schizophrenia) Hx Miscellaneous Medical Probl: No Hx Alcohol Use: No Hx Substance Use: No Hx Tobacco Use: No Smoking Status: Never smoker Physical Exam Vitals Vital Signs Date Temp Pulse Resp B/P (MAP) Pulse Ox O2 O2 Flow FiO2 Time Delivery Rate 06/30/18 97.4 88 21 104/65 99 03:43 (78) Physical Exam Const: No acute distress Head: Atraumatic Eyes: Normal Conjunctiva ENT: Normal External Ears, Nose and Mouth. Neck: Full range of motion. No meningismus. Resp: Clear to auscultation bilaterally Cardio: Regular rate and rhythm, no murmurs Abd: Soft, non tender, non distended. Normal bowel sounds Skin: No petechiae or rashes Back: No midline or flank tenderness Ext: No cyanosis, or edema Neur: Awake and alert Psych: Normal Mood and Affect Result Diagram: 06/30/18 0352 06/30/18 0352 Results 24 hrs Laboratory Tests Test 06/30/18 03:52 06/30/18 03:53 06/30/18 03:54 White Blood Count 12.2 10^3/ul Red Blood Count 2.64 10^6/ul Hemoglobin 8.0 g/dl Hematocrit 24.9 % Mean Corpuscular Volume 94.3 fl Mean Corpuscular Hemoglobin 30.3 pg Mean Corpuscular Hemoglobin Concent 32.1 g/dl Red Cell Distribution Width 14.8 % Platelet Count 252 10^3/UL Mean Platelet Volume 10.8 fl Immature Granulocytes % 1.200 % Neutrophils % 87.9 % Lymphocytes % 6.5 % Monocytes % 4.2 % Eosinophils % 0.0 % Basophils % 0.2 % Nucleated Red Blood Cells % 0.0 /100WBC Immature Granulocytes # 0.150 10^3/ul Neutrophils # 10.8 10^3/ul Lymphocytes # 0.8 10^3/ul Monocytes # 0.5 10^3/ul Eosinophils # 0.0 10^3/ul Basophils # 0.0 10^3/ul Nucleated Red Blood Cells # 0.0 10^3/ul Sodium Level 144 mmol/L Potassium Level 3.3 mmol/L Chloride Level 110 mmol/L Carbon Dioxide Level 25 mmol/L Anion Gap 9 Blood Urea Nitrogen 19 mg/dl Creatinine 0.60 mg/dl Est Glomerular Filtrat Rate mL/min > 60 mL/min Glucose Level 203 mg/dl Calcium Level 8.4 mg/dl Total Bilirubin 0.5 mg/dl Direct Bilirubin 0.00 mg/dl Indirect Bilirubin 0.5 mg/dl Aspartate Amino Transf (AST/SGOT) 37 IU/L Alanine Aminotransferase (ALT/SGPT) 49 IU/L Alkaline Phosphatase 101 IU/L Troponin I 0.051 ng/ml Total Protein 6.0 g/dl Albumin 2.7 g/dl Globulin 3.30 g/dl Albumin/Globulin Ratio 0.81 Prothrombin Time 15.6 Sec Prothrombin Time Ratio 1.2 INR International Normalized Ratio 1.23 Activated Partial Thromboplast Time 29.9 Sec POC Venous Lactate 1.5 mmol/L Current Medications Medications Dose Sig/Carlos A Start Time Status Last (Trade) Ordered Route PRN Stop Time Admin Dose Reason Admin Sodium 1,800 ml BOLUS OVER 2 06/30/18 DC 06/30/18 Chloride HOURS STAT 03:42 06/30/18 03:59 (NS) IV* 03:44 Procedures/MDM EKG: Rate/Rhythm: [Normal Sinus Rhythm] QRS, ST, T-waves: [No changes consistent w/ acute ischemia] Impression: [No evidence of ischemia or arrhythmia] Chest X-ray 1V Interpreted by me: Soft Tissue: No acute abnormalities Bones: No acute abnormalities Mediastinum/Cardiac Silhouette/Lungs: [No acute abnormalities] Medical decision makin-year-old male here for "altered" level consciousness. He seems to be at baseline. Work-up is essentially negative for any acute problems. He does have evidence of chronic anemia. No evidence of overwhelming infection. No fevers. Patient will be discharged back to SNF pending his negative head CT Departure Diagnosis: Primary Impression: Altered level of consciousness Condition: Stable PERLA MEDINA 9, 2019 05:42
[2018-06-30] MEDS ORDERED: MIRT15TA PO (07:40)
[2018-06-30] MEDS ORDERED: PANT40TA3 PO (07:40)
[2018-06-30] MEDS ORDERED: DIGO250T PO (07:40)
[2018-06-30] MEDS ORDERED: ASC500 PO (07:40)
[2018-06-30] MEDS ORDERED: MEG40/1 PO (07:40)
[2018-06-30] MEDS ORDERED: MULTI PO (07:40)
[2018-06-30] MEDS ORDERED: ZINC220T PO (07:41)
--- NOTE | 2018-06-30 07:45 | QN ---
Documentation Comment SUBJECTIVE This patient was signed out to me at [address] scan of the head. Briefly, this is a 72-year-old male atrial fibrillation, previous stroke, nonambulatory, bedbound and confused at baseline, schizophrenia/psychosis who is presenting for transient altered level of consciousness. The patient was evaluated fully by the previous physician, but his CT of the head was still pending at signout. OBJECTIVE Const: No apparent distress Head: Normocephalic, Atraumatic Eyes: Normal Conjunctiva. Pupils equal, round and reactive to light ENT: Normal External Ears, Nose. Dry mucous membranes Neck: Full range of motion. No meningismus. Resp: Faint bibasilar rales. No wheezes or rhonchi Cardio: Regular rate and rhythm. No murmurs, rubs or gallops Abd: Cachectic. Soft, non tender, non distended. Normal bowel sounds Skin: No petechiae or rashes Back: No midline tenderness. No CVA tenderness Ext: No cyanosis, or edema. Extremity atrophy Neur: Awake and alert. No facial droop. Able to move all extremities. MDM The patient's presentation warrants further investigation. Previous medical records, if available, were reviewed. LABS The patient's laboratory testing was obtained and reviewed. No emergent treatment was required unless described below. CBC: Leukocytosis with shift, potentially infectious in nature. Normocytic anemia, not emergent. Normal platelet count. Chemistry: No E/o severe acidosis or alkalosis or renal failure or liver disease or diabetic ketoacidosis. Mild hypokalemia, not emergent. Hypoalbuminemia, likely related to poor nutrition. PT/INR: No E/o significant coagulopathy Lactate: No E/o severe sepsis Troponin: No E/o acute ischemia Urine: Pending IMAGING Imaging and Radiology interpretation reviewed. CXR FINDINGS: Patchy opacities are seen in bilateral lower lungs The cardiomediastinal silhouette is magnified. There is aortic atherosclerosis. There are no pleural effusions or pneumothoraces. The osseous structures are intact. IMPRESSION: 1. Bibasilar patchy opacities subsegmental atelectasis versus mild infiltrates. 2. Aortic atherosclerosis. Electronically viewed and signed by Kwesi Friend MD on 06/30/2018 05:15 TREATMENT/DISPOSITION The patient CT revealed age-indeterminate cerebral ischemia. While does appear chronic and remote, review of past documentation does not reveal a history of CVA. I do feel that this requires further assessment in the hospital. The patient does have reported chronic weakness. He is bedbound. He is not a candidate for TPA or thrombectomy. He was given a dose of aspirin in the emergency department. The patient also has evidence of normal pressure hydrocephalus. This will need to be further assessed in the hospital. There is also evidence of possible pneumonia. The patient was treated with a dose of Levaquin. ADMISSION At this time, I feel that the patient requires admission for further evaluation and management. The patient will be admitted to panel in accordance with the patient's insurance. The patient was accepted by Dr. Cheatham at 8:53 AM on 06/30/2018. Disclaimer: Inadvertent spelling and grammatical errors are likely due to EHR/dictation software use and do not reflect on the overall quality of patient care. Note that the electronic time recorded on this note does not necessarily reflect the actual time of the patient encounter. OBSERVATION NOTE Time: 4 hours Family Hx: Patient is unable to provide Evaluation: Multiple exams showed improving symptoms and no evidence of decompensation ANAIS QUINONEZ MD June 30, 2018 07:45
[2018-06-30] MEDS ORDERED: ONDANSETRON 4 MG INJ IV PRN ×2 (09:00→15:00)
[2018-06-30] MEDS ORDERED: LEVOFLOXACIN 750MG/D5W (PMX) 150 ML IVPB ONE (09:00)
[2018-06-30] MEDS ORDERED: ASPIRIN 81 MG TAB PO ONE (09:00)
[2018-06-30] MEDS ORDERED: ACETAMINOPHEN 325 MG TAB PO PRN ×2 (09:00→15:00)
[2018-06-30] MEDS ORDERED: CEFTRIAXONE 1 GM/50 ML (PMX) 50 ML IVPB SCH (15:00)
[2018-06-30] MEDS ORDERED: NACL 0.9% 3 ML SYG IV SCH (15:00)
[2018-06-30] MEDS ORDERED: morphine 2 MG INJ IV PRN (15:00)
[2018-06-30] MEDS ORDERED: DOCUSATE SODIUM 100 MG CAP PO PRN (15:00)
[2018-06-30] MEDS ORDERED: HYDROCODONE/APAP (5/325) TAB PO PRN (15:00)
[2018-06-30] MEDS ORDERED: ZOLPIDEM 5 MG TAB PO PRN (15:00)
[2018-06-30] MEDS: SOD CHLORIDE 0.9% 1,000 ML IV SCH (15:24)
--- NOTE | 2018-06-30 15:40 | HP ---
Date/Time of Note Date/Time of Note DATE: 06/30/18 TIME: 15:35 Assessment/Plan VTE Prophylaxis Pharmacological prophylaxis: LMWH Lines/Catheters IV [facility] Saline Lock Assessment/Plan Hospital Course 1. Acute metabolic encephalopathy secondary to sepsis Source is likely urine Empiric Rocephin Follow-up cultures 2. Schizophrenia Continue psychiatric meds 3. Debility secondary to psychosis Patient resides in a [facility] 4. Chronic A. fib Rate is elevated at this time like secondary to sepsis IV fluids and antibiotics Patient not on anticoagulation likely secondary to being a fall risk Prophylaxis: Lovenox Result Diagram: 06/30/18 0352 06/30/18 0352 Results 24hrs Laboratory Tests Test 06/30/18 03:52 06/30/18 03:53 06/30/18 03:54 06/30/18 13:40 White Blood Count 12.2 #H Red Blood Count 2.64 #L Hemoglobin 8.0 #L Hematocrit 24.9 #L Mean Corpuscular Volume 94.3 Mean Corpuscular 30.3 Hemoglobin Mean Corpuscular 32.1 Hemoglobin Concent Red Cell Distribution 14.8 #H Width Platelet Count 252 Mean Platelet Volume 10.8 H Immature Granulocytes % 1.200 H Neutrophils % 87.9 H Lymphocytes % 6.5 L Monocytes % 4.2 Eosinophils % 0.0 Basophils % 0.2 Nucleated Red Blood 0.0 Cells % Immature Granulocytes # 0.150 H Neutrophils # 10.8 H Lymphocytes # 0.8 Monocytes # 0.5 Eosinophils # 0.0 Basophils # 0.0 Nucleated Red Blood 0.0 Cells # Sodium Level 144 Potassium Level 3.3 L Chloride Level 110 Carbon Dioxide Level 25 Anion Gap 9 Blood Urea Nitrogen 19 Creatinine 0.60 L Est Glomerular Filtrat > 60 Rate mL/min Glucose Level 203 Calcium Level 8.4 Total Bilirubin 0.5 Direct Bilirubin 0.00 Indirect Bilirubin 0.5 Aspartate Amino 37 Transf (AST/SGOT) Alanine 49 Aminotransferase (ALT/SG PT) Alkaline Phosphatase 101 Troponin I 0.051 Total Protein 6.0 L Albumin 2.7 L Globulin 3.30 H Albumin/Globulin Ratio 0.81 Prothrombin Time 15.6 H Prothrombin Time Ratio 1.2 INR International 1.23 Normalized Ratio Activated 29.9 Partial Thromboplast Time POC Venous Lactate 1.5 Urine Color BRIGIDA Urine Clarity CLOUDY A Urine pH 5.0 Urine Specific [place] 1.026 Urine Ketones NEGATIVE Urine Nitrite NEGATIVE Urine Bilirubin NEGATIVE Urine Urobilinogen 2+ H Urine Leukocyte Esterase 2+ H Urine Microscopic RBC 21 H Urine Microscopic WBC > 182 H Urine Squamous FEW Epithelial Cells Urine Bacteria MANY A Urine Mucus MANY A Urine Hemoglobin 1+ H Urine Glucose NEGATIVE Urine Total Protein 1+ H HPI/ROS Admit Date/Time Admit Date/Time June 30, 2018 Hx of Present Illness Patient is a 72-year-old male with a history of schizophrenia, A. fib, BPH, debility who resides in a [facility]. Patient presents with acute encephalopathy, in the ER UA suggested UTI. Patient is a poor historian and history is obtained from previous documentation. ROS Poor mentation PMH/Family/Social Past Medical History As per HPI Medications Current Medications Sodium Chloride 1,000 ml @ 100 mls/hr Q10H IV Last administered on 06/30/18at 15:24; Admin Dose 100 MLS/HR; Start 06/30/18 at 14:57 IV Flush (NS 3 ml) 3 ml PER PROTOCOL IV ; Start 06/30/18 at 15:00 Ondansetron HCl (Zofran Inj) 4 mg Q6H PRN IV NAUSEA/VOMITING; Start 06/30/18 at 15:00 Acetaminophen/ Hydrocodone Bitart ([place] (5/325)) 1 tab Q6H PRN PO .MOD PAIN 4- 6; Start 06/30/18 at 15:00 Morphine Sulfate (morphine) 2 mg Q4H PRN IV .SEVERE PAIN 7-10; Start 06/30/18 at 15:00 Docusate Sodium (Colace) 100 mg Q12H PRN PO .CONSTIPATION; Start 06/30/18 at 15:00 Zolpidem Tartrate (Ambien) 5 mg QHS PRN PO .INSOMNIA; Start 06/30/18 at 15:00 Ceftriaxone Sodium 50 ml @ 100 mls/hr Q24H IVPB Last administered on 06/30/18at 15:24; Admin Dose 100 MLS/HR; Start 06/30/18 at 15:00 Acetaminophen (Tylenol Tab) 650 mg Q6H PRN PO PAIN LEVEL 1-3 OR FEVER; Start 06/30/18 at 15:00 Ascorbic Acid (Vitamin C) 500 mg DAILY PO ; Start 07/01/18 at 09:00 Benztropine Mesylate (Cogentin) 1 mg DAILY PO ; Start 07/01/18 at 09:00 Digoxin (Digoxin) 0.25 mg DAILY@1300 PO ; Start 07/01/18 at 13:00 Diltiazem HCl (Cardizem) 30 mg TID PO ; Start 06/30/18 at 21:00 Lactobacillus Acidophilus/ Rhamnosus (Culturelle) 1 cap BID PO ; Start 06/30/18 at 21:00 Megestrol Acetate (Megace Susp) 400 mg BID PO ; Start 06/30/18 at 21:00 Mirtazapine (Remeron) 15 mg HS PO ; Start 06/30/18 at 21:00 Multivitamins Therapeutic (Theragran) 1 tab DAILY PO ; Start 07/01/18 at 09:00 Pantoprazole (Protonix Tab) 40 mg DAILY PO ; Start 07/01/18 at 09:00 Zinc Sulfate (Zinc Sulfate) 220 mg DAILY PO ; Start 07/01/18 at 09:00 Coded Allergies: Penicillins (Verified Allergy, Unknown, 06/30/18) Family History Significant Family History: no pertinent family hx Social History Alcohol Use: rarely Smoking Status: Never smoker Drug Use: none Exam/Review of Systems Vital Signs Vitals Vital Signs Date Temp Pulse Resp B/P (MAP) Pulse Ox O2 O2 Flow FiO2 Time Delivery Rate 06/30/18 99.4 78 25 91/55 (67) 98 Room Air 12:29 Exam Constitutional: alert, oriented Respiratory: clear to auscultation Cardiovascular: irregular rhythm Gastrointestinal: soft; No distended Musculoskeletal: nl extremities to inspection AIDA BRANDT June 30, 2018 15:40
[2018-06-30] MEDS ORDERED: DILTIAZEM 25 MG INJ IV ONE (16:00)
[2018-06-30] MEDS: ACETAMINOPHEN 325 MG TAB PO PRN (17:25)
[2018-06-30] MEDS: LACTOBACILLUS RHAMNOSUS CAP PO SCH (22:25)
[2018-06-30] MEDS: MEGESTROL (40 MG/ML) 10ML CUP PO SCH (22:25)
[2018-06-30] MEDS: MIRTAZAPINE 15 MG TAB PO SCH (22:25)
[2018-06-30] MEDS: DILTIAZEM 30 MG TAB PO SCH (22:26)
[2018-06-30 23:58] VITALS: PULSE 151
[2018-07-01] VITALS (15 sets, daily range): BP systolic 104–120; BP diastolic 56–81; PULSE 101–182; RESP 18–20; Ht 182.9 cm; Wt 56.8 kg
[2018-07-01] MEDS: SOD CHLORIDE 0.9% 1,000 ML IV SCH (00:57)
[2018-07-01] MEDS: BENZTROPINE 1 MG TAB PO SCH (09:00)
[2018-07-01] MEDS: LACTOBACILLUS RHAMNOSUS CAP PO SCH ×2 (10:20→22:16)
[2018-07-01] MEDS: DILTIAZEM 30 MG TAB PO SCH ×3 (10:21→22:16)
[2018-07-01] MEDS: PANTOPRAZOLE (EC) 40 MG TAB PO SCH (10:21)
[2018-07-01] MEDS: ASCORBIC ACID 500 MG TAB PO SCH (10:21)
[2018-07-01] MEDS: ZINC SULFATE 220 MG CAP PO SCH (10:21)
[2018-07-01] MEDS: MULTIVITAMINS THERAPEUTIC TAB PO SCH (10:22)
[2018-07-01] MEDS: ENOXAPARIN 40 MG/0.4 ML SYG SC SCH (10:24)
[2018-07-01] MEDS ORDERED: VANCOMYCIN IV PER PHARMACY XX SCH (10:30)
[2018-07-01] MEDS: MEGESTROL (40 MG/ML) 10ML CUP PO SCH ×2 (11:12→22:16)
[2018-07-01] MEDS ORDERED: VANCOMYCIN 1 GM 250 ML IVPB SCH (12:00)
[2018-07-01] MEDS: POTASSIUM CHLORIDE 40 MEQ in SOD CHLORIDE 0.9% 1,000 ML IV SCH ×2 (12:50→22:51)
[2018-07-01] MEDS: DIGOXIN 0.25 MG TAB PO SCH (12:51)
--- NOTE | 2018-07-01 13:55 | PN ---
Date/Time of Note Date/Time of Note DATE: 07/01/18 TIME: 13:54 Assessment/Plan VTE Prophylaxis Risk score (from Nsg)>0 risk: 7 Pharmacological prophylaxis: LMWH Lines/Catheters IV Catheter Type (from Nrsg): Saline Lock Assessment/Plan Hospital Course 1. Acute metabolic encephalopathy secondary to sepsis UA suggestive of UTI urine culture is growing enterococcus Blood cultures are positive for staph DC Rocephin and start Vanco Midline which patient had prior to arrival has been removed ID consultation obtained Follow-up on culture specifics 2. Schizophrenia Continue psychiatric meds 3. Debility secondary to psychosis Patient resides in a [facility] per speech therapy recommendations 4. Chronic A. fib Rate is elevated at this time like secondary to sepsis IV fluids and antibiotics Patient not on anticoagulation likely secondary to being a fall risk Prophylaxis: Lovenox Result Diagram: 07/01/18 0446 07/01/18 0446 Results 24hrs Laboratory Tests Test 07/01/18 04:46 White Blood Count 12.0 H Red Blood Count 3.09 L Hemoglobin 9.1 L Hematocrit 29.0 L Mean Corpuscular Volume 93.9 Mean Corpuscular Hemoglobin 29.4 Mean Corpuscular Hemoglobin Concent 31.4 L Red Cell Distribution Width 14.6 H Platelet Count 237 Mean Platelet Volume 9.9 Immature Granulocytes % 1.400 H Neutrophils % 88.6 H Lymphocytes % 6.4 L Monocytes % 3.4 Eosinophils % 0.0 Basophils % 0.2 Nucleated Red Blood Cells % 0.0 Immature Granulocytes # 0.170 H Neutrophils # 10.6 H Lymphocytes # 0.8 Monocytes # 0.4 Eosinophils # 0.0 Basophils # 0.0 Nucleated Red Blood Cells # 0.0 Sodium Level 145 H Potassium Level 3.2 L Chloride Level 113 H Carbon Dioxide Level 24 Anion Gap 8 Blood Urea Nitrogen 19 Creatinine 0.57 L Est Glomerular Filtrat Rate mL/min > 60 Glucose Level 112 # Hemoglobin A1c 5.8 Calcium Level 8.6 Phosphorus Level 3.3 Magnesium Level 2.0 Subjective 24 Hr Interval Summary Constitutional: disoriented Exam/Review of Systems Exam Vitals Vital Signs Date Temp Pulse Resp B/P (MAP) Pulse Ox O2 O2 Flow FiO2 Time Delivery Rate 07/01/18 111 12:08 07/01/18 98.5 18 104/65 95 Room Air 11:14 (78) Intake and Output 06/30/18 06/30/18 07/01/18 1515:00 23:00 07:00 IntakeIntake Total 300 ml BalanceBalance 300 ml Psych: confusion Respiratory: clear to auscultation Gastrointestinal: soft; No distended Musculoskeletal: nl extremities to inspection Results Results 24hrs Laboratory Tests Test 07/01/18 04:46 White Blood Count 12.0 H Red Blood Count 3.09 L Hemoglobin 9.1 L Hematocrit 29.0 L Mean Corpuscular Volume 93.9 Mean Corpuscular Hemoglobin 29.4 Mean Corpuscular Hemoglobin Concent 31.4 L Red Cell Distribution Width 14.6 H Platelet Count 237 Mean Platelet Volume 9.9 Immature Granulocytes % 1.400 H Neutrophils % 88.6 H Lymphocytes % 6.4 L Monocytes % 3.4 Eosinophils % 0.0 Basophils % 0.2 Nucleated Red Blood Cells % 0.0 Immature Granulocytes # 0.170 H Neutrophils # 10.6 H Lymphocytes # 0.8 Monocytes # 0.4 Eosinophils # 0.0 Basophils # 0.0 Nucleated Red Blood Cells # 0.0 Sodium Level 145 H Potassium Level 3.2 L Chloride Level 113 H Carbon Dioxide Level 24 Anion Gap 8 Blood Urea Nitrogen 19 Creatinine 0.57 L Est Glomerular Filtrat Rate mL/min > 60 Glucose Level 112 # Hemoglobin A1c 5.8 Calcium Level 8.6 Phosphorus Level 3.3 Magnesium Level 2.0 Medications Medication Current Medications IV Flush (NS 3 ml) 3 ml PER PROTOCOL IV ; Start 06/30/18 at 15:00 Ondansetron HCl (Zofran Inj) 4 mg Q6H PRN IV NAUSEA/VOMITING; Start 06/30/18 at 15:00 Acetaminophen/ Hydrocodone Bitart ([place] (5/325)) 1 tab Q6H PRN PO .MOD PAIN 4- 6 Last administered on 06/30/18at 20:09; Admin Dose 1 TAB; Start 06/30/18 at 15:00 Morphine Sulfate (morphine) 2 mg Q4H PRN IV .SEVERE PAIN 7-10; Start 06/30/18 at 15:00 Docusate Sodium (Colace) 100 mg Q12H PRN PO .CONSTIPATION; Start 06/30/18 at 15:00 Zolpidem Tartrate (Ambien) 5 mg QHS PRN PO .INSOMNIA; Start 06/30/18 at 15:00 Acetaminophen (Tylenol Tab) 650 mg Q6H PRN PO PAIN LEVEL 1-3 OR FEVER Last administered on 06/30/18 17:25; Admin Dose 650 MG; Start 06/30/18 at 15:00 Ascorbic Acid (Vitamin C) 500 mg DAILY PO Last administered on 07/01/18 10:21; Admin Dose 500 MG; Start 07/01/18 at 09:00 Benztropine Mesylate (Cogentin) 1 mg DAILY PO ; Start 07/01/18 at 09:00 Digoxin (Digoxin) 0.25 mg DAILY@1300 PO Last administered on 07/01/18 12:51; Admin Dose 0.25 MG; Start 07/01/18 at 13:00 Diltiazem HCl (Cardizem) 30 mg TID PO Last administered on 07/01/18 12:51; Admin Dose 30 MG; Start 06/30/18 at 21:00 Lactobacillus Acidophilus/ Rhamnosus (Culturelle) 1 cap BID PO Last administered on 07/01/18 10:20; Admin Dose 1 CAP; Start 06/30/18 at 21:00 Megestrol Acetate (Megace Susp) 400 mg BID PO Last administered on 07/01/18 11:12; Admin Dose 400 MG; Start 06/30/18 at 21:00 Mirtazapine (Remeron) 15 mg HS PO Last administered on 06/30/18 22:25; Admin Dose 15 MG; Start 06/30/18 at 21:00 Multivitamins Therapeutic (Theragran) 1 tab DAILY PO Last administered on 07/01/18 10:22; Admin Dose 1 TAB; Start 07/01/18 at 09:00 Pantoprazole (Protonix Tab) 40 mg DAILY PO Last administered on 07/01/18 10:21; Admin Dose 40 MG; Start 07/01/18 at 09:00 Zinc Sulfate (Zinc Sulfate) 220 mg DAILY PO Last administered on 07/01/18 10:21; Admin Dose 220 MG; Start 07/01/18 at 09:00 Enoxaparin Sodium (Lovenox) 40 mg DAILY SC Last administered on 07/01/18 10:24; Admin Dose 40 MG; Start 07/01/18 at 09:00 Potassium Chloride 40 meq/ Sodium Chloride 1,000 ml @ 100 mls/hr Q10H IV Last administered on 07/01/18at 12:50; Admin Dose 100 MLS/HR; Start 07/01/18 at 12:00 Vancomycin HCl (Vanco Iv Per Pharmacy) VANCOMYCIN PER PHARMACY PER PROTOCOL XX ; Start 07/01/18 at 10:30 Vancomycin HCl 250 ml @ 125 mls/hr ONCE IVPB Last administered on 07/01/18at 12:50; Admin Dose 125 MLS/HR; Start 07/01/18 at 12:00; Stop 07/01/18 at 16:00 Vancomycin/Sodium Chloride 250 ml @ 125 mls/hr Q12H IVPB ; Start 07/02/18 at 00:00 AIDA BRANDT July 01, 2018 13:55
--- NOTE | 2018-07-01 17:24 | CONS ---
DATE OF ADMISSION: 06/30/2018 DATE OF CONSULTATION: 07/01/2018 TYPE OF CONSULTATION: Infectious disease. REASON FOR CONSULTATION: Antibiotic management. HISTORY OF PRESENT ILLNESS: Darrell Tierney is a 72-year-old male who was brought in from [facility] with altered levels of consciousness. He is altered at baseline and cannot provide relevant hist ory. Past problems include possible schizophrenia. The patient is on medication for hypertension an d also for diabetes. He is also on medication for GERD. FAMILY HISTORY: Noncontributory. SOCIAL HISTORY: He does not smoke, drink or abuse drugs. ALLERGIES: NONE TO PENICILLIN, SULFA OR FOODS. MEDICATIONS: Per chart. REVIEW OF SYSTEMS: As per HPI. PHYSICAL EXAMINATION: GENERAL: The patient is not in any acute distress. He is somewhat confused. VITAL SIGNS: Stable. He is afebrile. SKIN: Without generalized rash. HEENT: Within normal limits. NECK: Supple. LYMPH NODES: None palpable. CHEST: Decreased breath sounds at the bases. HEART: Without murmur or gallop. ABDOMEN: Soft, nontender without organosplenomegaly or masses. EXTREMITIES: Without cyanosis, clubbing or edema. RECTAL AND GENITAL: Deferred. NEUROLOGIC: No focal neurological abnormality. HOSPITAL COURSE: On admission, his white count is 12.2, H and H of 8 and 24.9, platelet count 252,00 0. He has 88% neutrophils. BUN and creatinine is 19/0.6 and random glucose of 203. Potassium was l ow at 3.3. Chest x-ray showed no acute abnormalities. The patient simply had altered levels of cons ciousness. His blood cultures are growing Staphylococcus aureus, 2/2. His urine is growing Enteroco ccus species. Chest x-ray shows bibasilar patchy opacities, subsegmental atelectasis versus mild inf iltrates. CT scan of the brain shows transcortical infarct of left inferior and posterior cerebellum extending into the cerebellar tonsil which is likely remote, disproportionate enlarged lateral third and fourth ventricles relative to consistent with communicating hydrocephalus. In the appropr iate clinical setting, these findings may reflect normal pressure hydrocephalus, moderate generalized parenchymal volume loss. The patient was begun on vancomycin. A 2D echocardiogram should be ordere d. The patient with acute metabolic encephalopathy secondary to sepsis. He had a midline which he h ad prior to arrival and this was removed so this may be the source of his sepsis. Follow up on cultu res for specifics. Debility secondary to psychosis, chronic atrial fibrillation. We will continue h im on current therapy and await the culture reports. Blood cultures should be repeated. I will dict ate my findings to the hospitalist. Dictated By: KWABENA MAGAÑA MD, JD/NTS Conf#: [id number] DID#: [id number] CC: AIDA BRANDT MD;*EndCC*
[2018-07-01] MEDS: MIRTAZAPINE 15 MG TAB PO SCH (22:16)
[2018-07-02] VITALS (16 sets, daily range): BP systolic 109–137; BP diastolic 58–71; PULSE 74–172; RESP 18–22
[2018-07-02] MEDS ORDERED: VANCOMYCIN 750 MG (PMX) 250 ML IVPB SCH
[2018-07-02] MEDS: POTASSIUM CHLORIDE 40 MEQ in SOD CHLORIDE 0.9% 1,000 ML IV SCH ×3 (08:00→18:00)
[2018-07-02] MEDS: DILTIAZEM 30 MG TAB PO SCH ×3 (08:53→20:56)
[2018-07-02] MEDS: MULTIVITAMINS THERAPEUTIC TAB PO SCH (08:53)
[2018-07-02] MEDS: ZINC SULFATE 220 MG CAP PO SCH (08:53)
[2018-07-02] MEDS: ASCORBIC ACID 500 MG TAB PO SCH (08:53)
[2018-07-02] MEDS: PANTOPRAZOLE (EC) 40 MG TAB PO SCH (08:53)
[2018-07-02] MEDS: MEGESTROL (40 MG/ML) 10ML CUP PO SCH ×2 (08:54→20:56)
[2018-07-02] MEDS: LACTOBACILLUS RHAMNOSUS CAP PO SCH ×2 (08:54→20:55)
[2018-07-02] MEDS: BENZTROPINE 1 MG TAB PO SCH (08:54)
[2018-07-02] MEDS: ENOXAPARIN 40 MG/0.4 ML SYG SC SCH (09:02)
--- NOTE | 2018-07-02 11:08 | CONS ---
Assessment/Plan Assessment/Plan Hospital Course (Demo Recall) ID PROGRESS NOTE CURRENT ABX: DAY # 2-> Vanco IV 07/02/18 0500 07/02/18 0500 24H INTERVAL SUMMARY * Lethargic, frail 72 yo M w/encephalopathy, opens eyes, failed swallow eval -- (+)ASP risk * Afebrile today -- TMAX 48 hours ago > 101.+, tachycardia persisting, * CHART REVIEWED == ABX CHANGED TODAY TO ZYVOX + MERREM to cover VRE, MRSA, GNR UTI DIAGNOSTIC IMAGING * 06/30/[address]: * 1. 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 If clinically appropriate further evaluation with MRI examination of the brain is recommended. * 2. Disproportionate enlarged lateral, third, and fourth ventricles relative to the sulcal size consistent with communicating hydrocephalus. In the appropriate clinical setting these findings may reflect normal-pressure hydrocephalus. * 3. Moderate generalized parenchymal volume loss. * 4. Mild chronic microvascular white matter ischemic disease. * 5. Remote lacunar infarct of the right basal ganglia. * 6. Atherosclerosis. * 06/30/2018 CXR: 1. Bibasilar patchy opacities subsegmental atelectasis versus mild infiltrates. 2. Aortic atherosclerosis. MICRO/OTHER * 07/01/18: BCX (+)GPC clusters -> PENDING * 06/30/18 BCX (+)MRSA * 06/30/18 URINE CX (+) URINE CULTURE Preliminary Organism 1 VANCO RESISTANT ENTEROCOCCUS COLONY COUNT >100,000 CFU/ml . MULTI DRUG RESISTANT ORGANISM Organism 2 GRAM NEGATIVE FÁTIMA COLONY COUNT >100,000 CFU/ml Organism 3 NON LACTOSE FERMENTING GNR COLONY COUNT 50,000 - 60,000 CFU/ml VRE M.I.C. RX --------- --- AMPICILLIN <=2 S CIPROFLOXACIN >=8 R FOSFOMYCIN S GENTAMICIN 120 S LEVOFLOXACIN >=8 R LINEZOLID 2 S NITROFURANTOIN <=16 S PENICILLIN-G 8 S QUINUPRISTIN/DALFOPRISTIN 4 R STREPTOMYCIN 300 S VANCOMYCIN >=32 R PHYSICAL EXAMINATION: GENERAL: Frail, lethargic, encephalopathy HEENT: AT, NC, anicteric NECK: Supple, CHEST: Equal chest rise bilaterally, without dyspnea on observation HEART: Pulse = tachy ABDOMEN: Soft / NT EXTREMITIES: Warm, BLEXT SKIN: No rash, no diaphoresis (+) decubs == see photos ID ASSESSMENT 72 yo M w/chronic Schizophrenia and prior vascular dementia admit with: 1. Sepsis on admission w/Fevers > 101.+, leukocytosis, SVT => Multifactorial due to #2 & #3 2. MRSA Bacteremia = Midline SEPSIS -> Midline catheter present on admission now removed 3. Complicated polymicrobial MDRO UTI 4. Acute metabolic encephalopathy secondary to sepsis/ on chronic vascular dementia * CT Brain w/prior infarcts and micro-vascular changes 5. Chronic Schizophrenia -- on psychiatric meds 6. Chronic debility secondary to psychosis 7. Chronic A.Fib w/p RVR on admission due to acute sepsis 8. FALLS RISK = Patient not on anticoagulation likely secondary to being a fall risk 9. Cachexia - protein calorie malnutrition 10. Pressure decubs: Back, sacrococcygeal, bilateral heels ABX ALLERGIES: PCN INVASIVES: PIV CURRENT ABX: DAY #2-> Vanco IV ID RECOMMENDATIONS/PLAN: 1.DC Vanco IV -> Change to Zyvox to cover both MRSA BCX + VRE Urine (hopefully it is not contraindicated w/Psych meds) 2. Add Merrem to cover GNR Urine pathogens == OK to give with PCN allergy 3. Check MRSA nares 4. Repeat BCx are (+)MRSA -- repeat again tomorrow after ABX onboard . . Consultation Date/Type/Reason Admit Date/Time June 30, 2018 at 08:59 Initial Consult Date Date/Time of Note DATE: 07/02/18 TIME: 10:49 Exam/Review of Systems Exam Vitals Vital Signs Date Temp Pulse Resp B/P (MAP) Pulse Ox O2 O2 Flow FiO2 Time Delivery Rate 07/02/18 156 08:13 07/02/18 98.0 22 137/65 96 Room Air 07:22 (89) Intake and Output 07/01/18 07/01/18 07/02/18 1515:00 23:00 07:00 IntakeIntake Total 200 ml 750 ml OutputOutput Total 550 ml BalanceBalance -350 ml 750 ml Results Result Diagram: 07/02/18 0500 07/02/18 0500 Results 24hrs Laboratory Tests Test 07/02/18 05:00 White Blood Count 14.5 #H Red Blood Count 2.83 L Hemoglobin 8.4 L Hematocrit 26.1 L Mean Corpuscular Volume 92.2 Mean Corpuscular Hemoglobin 29.7 Mean Corpuscular Hemoglobin Concent 32.2 Red Cell Distribution Width 14.7 H Platelet Count 244 Mean Platelet Volume 10.1 Immature Granulocytes % 0.800 H Neutrophils % 90.4 H Lymphocytes % 5.2 L Monocytes % 3.5 Eosinophils % 0.0 Basophils % 0.1 Nucleated Red Blood Cells % 0.0 Immature Granulocytes # 0.120 H Neutrophils # 13.1 H Lymphocytes # 0.8 Monocytes # 0.5 Eosinophils # 0.0 Basophils # 0.0 Nucleated Red Blood Cells # 0.0 Sodium Level 146 H Potassium Level 3.4 L Chloride Level 117 H Carbon Dioxide Level 22 Anion Gap 7 Blood Urea Nitrogen 19 Creatinine 0.62 Est Glomerular Filtrat Rate mL/min > 60 Glucose Level 117 Calcium Level 8.2 L Magnesium Level 2.1 Medications Medication Current Medications IV Flush (NS 3 ml) 3 ml PER PROTOCOL IV ; Start 06/30/18 at 15:00 Ondansetron HCl (Zofran Inj) 4 mg Q6H PRN IV NAUSEA/VOMITING; Start 06/30/18 at 15:00 Acetaminophen/ Hydrocodone Bitart ([place] (5/325)) 1 tab Q6H PRN PO .MOD PAIN 4- 6 Last administered on 06/30/18at 20:09; Admin Dose 1 TAB; Start 06/30/18 at 15:00 Morphine Sulfate (morphine) 2 mg Q4H PRN IV .SEVERE PAIN 7-10; Start 06/30/18 at 15:00 Docusate Sodium (Colace) 100 mg Q12H PRN PO .CONSTIPATION; Start 06/30/18 at 15:00 Zolpidem Tartrate (Ambien) 5 mg QHS PRN PO .INSOMNIA; Start 06/30/18 at 15:00 Acetaminophen (Tylenol Tab) 650 mg Q6H PRN PO PAIN LEVEL 1-3 OR FEVER Last administered on 06/30/18at 17:25; Admin Dose 650 MG; Start 06/30/18 at 15:00 Ascorbic Acid (Vitamin C) 500 mg DAILY PO Last administered on 07/02/18 08:53; Admin Dose 500 MG; Start 07/01/18 at 09:00 Benztropine Mesylate (Cogentin) 1 mg DAILY PO Last administered on 07/02/18 08:54; Admin Dose 1 MG; Start 07/01/18 at 09:00 Digoxin (Digoxin) 0.25 mg DAILY@1300 PO Last administered on 07/01/18 12:51; Admin Dose 0.25 MG; Start 07/01/18 at 13:00 Diltiazem HCl (Cardizem) 30 mg TID PO Last administered on 07/02/18 08:53; Admin Dose 30 MG; Start 06/30/18 at 21:00 Lactobacillus Acidophilus/ Rhamnosus (Culturelle) 1 cap BID PO Last administered on 07/02/18 08:54; Admin Dose 1 CAP; Start 06/30/18 at 21:00 Megestrol Acetate (Megace Susp) 400 mg BID PO Last administered on 07/02/18 08:54; Admin Dose 400 MG; Start 06/30/18 at 21:00 Mirtazapine (Remeron) 15 mg HS PO Last administered on 07/01/18 22:16; Admin Dose 15 MG; Start 06/30/18 at 21:00 Multivitamins Therapeutic (Theragran) 1 tab DAILY PO Last administered on 07/02/18 08:53; Admin Dose 1 TAB; Start 07/01/18 at 09:00 Pantoprazole (Protonix Tab) 40 mg DAILY PO Last administered on 07/02/18 08:53; Admin Dose 40 MG; Start 07/01/18 at 09:00 Zinc Sulfate (Zinc Sulfate) 220 mg DAILY PO Last administered on 07/02/18 08:53; Admin Dose 220 MG; Start 07/01/18 at 09:00 Enoxaparin Sodium (Lovenox) 40 mg DAILY SC Last administered on 07/02/18 09:02; Admin Dose 40 MG; Start 07/01/18 at 09:00 Potassium Chloride 40 meq/ Sodium Chloride 1,000 ml @ 100 mls/hr Q10H IV Last administered on 07/01/18 22:51; Admin Dose 100 MLS/HR; Start 07/01/18 at 12:00 Vancomycin HCl (Vanco Iv Per Pharmacy) VANCOMYCIN PER PHARMACY PER PROTOCOL XX ; Start 07/01/18 at 10:30 Vancomycin/Sodium Chloride 250 ml @ 125 mls/hr Q12H IVPB Last administered on 07/02/18at 00:07; Admin Dose 125 MLS/HR; Start 07/02/18 at 00:00 NEYDA DUENAS NP July 02, 2018 11:02
[2018-07-02] MEDS ORDERED: MAGNESIUM SULFATE 2 GM/50 ML 50 ML IVPB ONE (11:30)
[2018-07-02] MEDS: LINEZOLID 600 MG/D5W (PMX) 300 ML IVPB SCH ×2 (14:34→21:29)
[2018-07-02] MEDS: POTASSIUM CHLORIDE 100 ML IVPB SCH ×2 (14:34→19:02)
[2018-07-02] MEDS: MEROPENEM 1 GM/50ML(PMX) 50 ML IVPB SCH ×2 (14:34→20:55)
[2018-07-02] MEDS: DIGOXIN 0.25 MG TAB PO SCH (15:03)
--- NOTE | 2018-07-02 16:45 | PN ---
Date/Time of Note Date/Time of Note DATE: 07/02/18 TIME: 16:43 Assessment/Plan VTE Prophylaxis Risk score (from Nsg)>0 risk: 7 Pharmacological prophylaxis: LMWH Lines/Catheters IV Catheter Type (from Nrsg): [place] Assessment/Plan Hospital Course 1. Acute metabolic encephalopathy secondary to severe sepsis UA is growing VRE Blood cultures are positive for MRSA Patient now on meropenem and Zyvox Midline which patient had prior to arrival has been removed ID consultation appreciated 2. Schizophrenia Continue psychiatric meds 3. Debility secondary to psychosis Patient resides in a senior care N.p.o. per speech therapy recommendations 4. Chronic A. fib Rate is elevated at this time like secondary to sepsis IV fluids and antibiotics Patient not on anticoagulation likely secondary to being a fall risk 5. Nonsustained V. tach BP has been stable patient is a symptomatically Replete potassium, magnesium is above 2.0 Prophylaxis: Lovenox Result Diagram: 07/02/18 0500 07/02/18 0500 Results 24hrs Laboratory Tests Test 07/02/18 05:00 White Blood Count 14.5 #H Red Blood Count 2.83 L Hemoglobin 8.4 L Hematocrit 26.1 L Mean Corpuscular Volume 92.2 Mean Corpuscular Hemoglobin 29.7 Mean Corpuscular Hemoglobin Concent 32.2 Red Cell Distribution Width 14.7 H Platelet Count 244 Mean Platelet Volume 10.1 Immature Granulocytes % 0.800 H Neutrophils % 90.4 H Lymphocytes % 5.2 L Monocytes % 3.5 Eosinophils % 0.0 Basophils % 0.1 Nucleated Red Blood Cells % 0.0 Immature Granulocytes # 0.120 H Neutrophils # 13.1 H Lymphocytes # 0.8 Monocytes # 0.5 Eosinophils # 0.0 Basophils # 0.0 Nucleated Red Blood Cells # 0.0 Sodium Level 146 H Potassium Level 3.4 L Chloride Level 117 H Carbon Dioxide Level 22 Anion Gap 7 Blood Urea Nitrogen 19 Creatinine 0.62 Est Glomerular Filtrat Rate mL/min > 60 Glucose Level 117 Calcium Level 8.2 L Magnesium Level 2.1 Subjective 24 Hr Interval Summary Subjective hx not possible: pt non-verbal Exam/Review of Systems Exam Vitals Vital Signs Date Temp Pulse Resp B/P (MAP) Pulse Ox O2 O2 Flow FiO2 Time Delivery Rate 07/02/18 96.0 120 22 131/64 96 Room Air 15:32 (86) Intake and Output 07/01/18 07/01/18 07/02/18 1515:00 23:00 07:00 IntakeIntake Total 200 ml 750 ml OutputOutput Total 550 ml BalanceBalance -350 ml 750 ml Psych: confusion Respiratory: clear to auscultation Cardiovascular: regular rate and rhythm Gastrointestinal: soft; No distended Musculoskeletal: nl extremities to inspection Results Results 24hrs Laboratory Tests Test 07/02/18 05:00 White Blood Count 14.5 #H Red Blood Count 2.83 L Hemoglobin 8.4 L Hematocrit 26.1 L Mean Corpuscular Volume 92.2 Mean Corpuscular Hemoglobin 29.7 Mean Corpuscular Hemoglobin Concent 32.2 Red Cell Distribution Width 14.7 H Platelet Count 244 Mean Platelet Volume 10.1 Immature Granulocytes % 0.800 H Neutrophils % 90.4 H Lymphocytes % 5.2 L Monocytes % 3.5 Eosinophils % 0.0 Basophils % 0.1 Nucleated Red Blood Cells % 0.0 Immature Granulocytes # 0.120 H Neutrophils # 13.1 H Lymphocytes # 0.8 Monocytes # 0.5 Eosinophils # 0.0 Basophils # 0.0 Nucleated Red Blood Cells # 0.0 Sodium Level 146 H Potassium Level 3.4 L Chloride Level 117 H Carbon Dioxide Level 22 Anion Gap 7 Blood Urea Nitrogen 19 Creatinine 0.62 Est Glomerular Filtrat Rate mL/min > 60 Glucose Level 117 Calcium Level 8.2 L Magnesium Level 2.1 Medications Medication Current Medications IV Flush (NS 3 ml) 3 ml PER PROTOCOL IV ; Start 06/30/18 at 15:00 Ondansetron HCl (Zofran Inj) 4 mg Q6H PRN IV NAUSEA/VOMITING; Start 06/30/18 at 15:00 Acetaminophen/ Hydrocodone Bitart ([place] (5/325)) 1 tab Q6H PRN PO .MOD PAIN 4- 6 Last administered on 06/30/18at 20:09; Admin Dose 1 TAB; Start 06/30/18 at 15:00 Morphine Sulfate (morphine) 2 mg Q4H PRN IV .SEVERE PAIN 7-10; Start 06/30/18 at 15:00 Docusate Sodium (Colace) 100 mg Q12H PRN PO .CONSTIPATION; Start 06/30/18 at 15:00 Zolpidem Tartrate (Ambien) 5 mg QHS PRN PO .INSOMNIA; Start 06/30/18 at 15:00 Acetaminophen (Tylenol Tab) 650 mg Q6H PRN PO PAIN LEVEL 1-3 OR FEVER Last administered on 06/30/18 17:25; Admin Dose 650 MG; Start 06/30/18 at 15:00 Ascorbic Acid (Vitamin C) 500 mg DAILY PO Last administered on 07/02/18 08:53; Admin Dose 500 MG; Start 07/01/18 at 09:00 Benztropine Mesylate (Cogentin) 1 mg DAILY PO Last administered on 07/02/18 08:54; Admin Dose 1 MG; Start 07/01/18 at 09:00 Digoxin (Digoxin) 0.25 mg DAILY@1300 PO Last administered on 07/02/18 15:03; Admin Dose 0.25 MG; Start 07/01/18 at 13:00 Diltiazem HCl (Cardizem) 30 mg TID PO Last administered on 07/02/18 15:05; Admin Dose 30 MG; Start 06/30/18 at 21:00 Lactobacillus Acidophilus/ Rhamnosus (Culturelle) 1 cap BID PO Last administered on 07/02/18 08:54; Admin Dose 1 CAP; Start 06/30/18 at 21:00 Megestrol Acetate (Megace Susp) 400 mg BID PO Last administered on 07/02/18 08:54; Admin Dose 400 MG; Start 06/30/18 at 21:00 Mirtazapine (Remeron) 15 mg HS PO Last administered on 07/01/18 22:16; Admin Dose 15 MG; Start 06/30/18 at 21:00 Multivitamins Therapeutic (Theragran) 1 tab DAILY PO Last administered on 07/02/18 08:53; Admin Dose 1 TAB; Start 07/01/18 at 09:00 Pantoprazole (Protonix Tab) 40 mg DAILY PO Last administered on 07/02/18 08:53 ; Admin Dose 40 MG; Start 07/01/18 at 09:00 Zinc Sulfate (Zinc Sulfate) 220 mg DAILY PO Last administered on 07/02/18 08:53; Admin Dose 220 MG; Start 07/01/18 at 09:00 Enoxaparin Sodium (Lovenox) 40 mg DAILY SC Last administered on 07/02/18 09:02; Admin Dose 40 MG; Start 07/01/18 at 09:00 Potassium Chloride 40 meq/ Sodium Chloride 1,000 ml @ 100 mls/hr Q10H IV Last administered on 07/02/18at 14:34; Admin Dose 100 MLS/HR; Start 07/01/18 at 12:00 Linezolid 300 ml @ 300 mls/hr Q12 IVPB Last administered on 07/02/18at 14:34; Admin Dose 300 MLS/HR; Start 07/02/18 at 12:00 Meropenem/Sodium Chloride 50 ml @ 100 mls/hr Q12 IVPB Last administered on 07/02/18at 14:34; Admin Dose 100 MLS/HR; Start 07/02/18 at 11:30 Potassium Chloride 100 ml @ 50 mls/hr Q2H IVPB Last administered on 07/02/18at 14:34; Admin Dose 50 MLS/HR; Start 07/02/18 at 13:30; Stop 07/02/18 at 17:29 AIDA BRANDT July 02, 2018 16:45
[2018-07-02] MEDS: MIRTAZAPINE 15 MG TAB PO SCH (20:55)
[2018-07-03] VITALS (18 sets, daily range): BP systolic 90–119; BP diastolic 50–67; PULSE 44–207; RESP 20–22
[2018-07-03] MEDS: POTASSIUM CHLORIDE 40 MEQ in SOD CHLORIDE 0.9% 1,000 ML IV SCH ×3 (05:43→22:13)
[2018-07-03] MEDS: ZINC SULFATE 220 MG CAP PO SCH (08:50)
[2018-07-03] MEDS: LACTOBACILLUS RHAMNOSUS CAP PO SCH ×2 (08:50→20:56)
[2018-07-03] MEDS: ASCORBIC ACID 500 MG TAB PO SCH (08:50)
[2018-07-03] MEDS: MULTIVITAMINS THERAPEUTIC TAB PO SCH (08:50)
[2018-07-03] MEDS: BENZTROPINE 1 MG TAB PO SCH (08:50)
[2018-07-03] MEDS: DILTIAZEM 30 MG TAB PO SCH ×3 (08:52→20:57)
[2018-07-03] MEDS: BALSAM PERU/CASTOR OIL 60 GM TUBE TOP SCH ×2 (08:52→20:57)
[2018-07-03] MEDS: MEROPENEM 1 GM/50ML(PMX) 50 ML IVPB SCH ×2 (08:52→20:56)
[2018-07-03] MEDS: MEGESTROL (40 MG/ML) 10ML CUP PO SCH ×2 (08:52→20:56)
[2018-07-03] MEDS: ENOXAPARIN 40 MG/0.4 ML SYG SC SCH (08:53)
[2018-07-03] MEDS: LINEZOLID 600 MG/D5W (PMX) 300 ML IVPB SCH ×2 (08:56→22:12)
[2018-07-03] MEDS: PANTOPRAZOLE (EC) 40 MG TAB PO SCH (08:56)
--- NOTE | 2018-07-03 10:40 | PN ---
Date/Time of Note Date/Time of Note DATE: 07/03/18 TIME: 10:35 Assessment/Plan VTE Prophylaxis Risk score (from Ns)>0 risk: 7 SCD applied (from Ns): Yes Pharmacological prophylaxis: LMWH Lines/Catheters IV [facility] ([facility] Peripheral IV Assessment/Plan Hospital Course 1. Acute metabolic encephalopathy secondary to severe sepsis Urine culture is growing VRE First set of blood cultures are positive for MRSA, second set of blood cultures are also positive Follow-up on echo to evaluate for IE Patient now on meropenem and Zyvox Midline and [place] catheter which patient had prior to arrival has been removed, new Jimenez placed ID consultation appreciated 2. Schizophrenia Continue psychiatric meds 3. Debility secondary to psychosis Patient resides in a half-way N.p.o. per speech therapy recommendations 4. Chronic A. fib Rate had been elevated secondary to sepsis but has not improved IV fluids and antibiotics Patient not on anticoagulation likely secondary to being a fall risk 5. Nonsustained V. tach BP has been stable patient is asymptomatic Replete electrolytes as needed Prophylaxis: Lovenox DC planning: Patient blood cultures continue to be positive, follow-up on echo, continue antibiotics Result Diagram: 07/03/18 0509 07/03/18 0509 Results 24hrs Laboratory Tests Test 07/03/18 05:09 White Blood Count 16.7 H Red Blood Count 2.83 L Hemoglobin 8.4 L Hematocrit 26.4 L Mean Corpuscular Volume 93.3 Mean Corpuscular Hemoglobin 29.7 Mean Corpuscular Hemoglobin Concent 31.8 L Red Cell Distribution Width 14.6 H Platelet Count 237 Mean Platelet Volume 10.2 Immature Granulocytes % 1.400 H Neutrophils % 88.7 H Lymphocytes % 5.9 L Monocytes % 3.8 Eosinophils % 0.1 Basophils % 0.1 Nucleated Red Blood Cells % 0.0 Immature Granulocytes # 0.230 H Neutrophils # 14.8 H Lymphocytes # 1.0 Monocytes # 0.6 Eosinophils # 0.0 Basophils # 0.0 Nucleated Red Blood Cells # 0.0 Sodium Level 145 H Potassium Level 3.7 Chloride Level 116 H Carbon Dioxide Level 24 Anion Gap 5 Blood Urea Nitrogen 16 Creatinine 0.53 L Est Glomerular Filtrat Rate mL/min > 60 Glucose Level 116 Calcium Level 7.8 L Magnesium Level 2.4 Subjective 24 Hr Interval Summary Constitutional: disoriented Exam/Review of Systems Exam Vitals Vital Signs Date Temp Pulse Resp B/P (MAP) Pulse Ox O2 O2 Flow FiO2 Time Delivery Rate 07/03/18 97 08:00 07/03/18 97.3 22 98/60 (73) 96 Room Air 07:22 Intake and Output 07/02/18 07/02/18 07/03/18 1515:00 23:00 07:00 IntakeIntake Total 100 ml 400 ml 100 ml OutputOutput Total 450 ml 800 ml 600 ml BalanceBalance -350 ml -400 ml -500 ml Psych: confusion Respiratory: clear to auscultation Cardiovascular: regular rate and rhythm Gastrointestinal: soft; No distended Musculoskeletal: nl extremities to inspection Results Results 24hrs Laboratory Tests Test 07/03/18 05:09 White Blood Count 16.7 H Red Blood Count 2.83 L Hemoglobin 8.4 L Hematocrit 26.4 L Mean Corpuscular Volume 93.3 Mean Corpuscular Hemoglobin 29.7 Mean Corpuscular Hemoglobin Concent 31.8 L Red Cell Distribution Width 14.6 H Platelet Count 237 Mean Platelet Volume 10.2 Immature Granulocytes % 1.400 H Neutrophils % 88.7 H Lymphocytes % 5.9 L Monocytes % 3.8 Eosinophils % 0.1 Basophils % 0.1 Nucleated Red Blood Cells % 0.0 Immature Granulocytes # 0.230 H Neutrophils # 14.8 H Lymphocytes # 1.0 Monocytes # 0.6 Eosinophils # 0.0 Basophils # 0.0 Nucleated Red Blood Cells # 0.0 Sodium Level 145 H Potassium Level 3.7 Chloride Level 116 H Carbon Dioxide Level 24 Anion Gap 5 Blood Urea Nitrogen 16 Creatinine 0.53 L Est Glomerular Filtrat Rate mL/min > 60 Glucose Level 116 Calcium Level 7.8 L Magnesium Level 2.4 Medications Medication Current Medications IV Flush (NS 3 ml) 3 ml PER PROTOCOL IV ; Start 06/30/18 at 15:00 Ondansetron HCl (Zofran Inj) 4 mg Q6H PRN IV NAUSEA/VOMITING; Start 06/30/18 at 15:00 Acetaminophen/ Hydrocodone Bitart ([place] (5/325)) 1 tab Q6H PRN PO .MOD PAIN 4- 6 Last administered on 06/30/18at 20:09; Admin Dose 1 TAB; Start 06/30/18 at 15:00 Morphine Sulfate (morphine) 2 mg Q4H PRN IV .SEVERE PAIN 7-10; Start 06/30/18 at 15:00 Docusate Sodium (Colace) 100 mg Q12H PRN PO .CONSTIPATION; Start 06/30/18 at 15:00 Zolpidem Tartrate (Ambien) 5 mg QHS PRN PO .INSOMNIA; Start 06/30/18 at 15:00 Acetaminophen (Tylenol Tab) 650 mg Q6H PRN PO PAIN LEVEL 1-3 OR FEVER Last administered on 06/30/18 17:25; Admin Dose 650 MG; Start 06/30/18 at 15:00 Ascorbic Acid (Vitamin C) 500 mg DAILY PO Last administered on 07/03/18 08:50; Admin Dose 500 MG; Start 07/01/18 at 09:00 Benztropine Mesylate (Cogentin) 1 mg DAILY PO Last administered on 07/03/18 08:50; Admin Dose 1 MG; Start 07/01/18 at 09:00 Digoxin (Digoxin) 0.25 mg DAILY@1300 PO Last administered on 07/02/18 15:03; Admin Dose 0.25 MG; Start 07/01/18 at 13:00 Diltiazem HCl (Cardizem) 30 mg TID PO Last administered on 07/03/18 08:52; Admin Dose 30 MG; Start 06/30/18 at 21:00 Lactobacillus Acidophilus/ Rhamnosus (Culturelle) 1 cap BID PO Last ad ministered on 07/03/18 08:50; Admin Dose 1 CAP; Start 06/30/18 at 21:00 Megestrol Acetate (Megace Susp) 400 mg BID PO Last administered on 07/03/18 08:52; Admin Dose 400 MG; Start 06/30/18 at 21:00 Mirtazapine (Remeron) 15 mg HS PO Last administered on 07/02/18 20:55; Admin Dose 15 MG; Start 06/30/18 at 21:00 Multivitamins Therapeutic (Theragran) 1 tab DAILY PO Last administered on 07/03/18 08:50; Admin Dose 1 TAB; Start 07/01/18 at 09:00 Pantoprazole (Protonix Tab) 40 mg DAILY PO Last administered on 07/03/18 08:56; Admin Dose 40 MG; Start 07/01/18 at 09:00 Zinc Sulfate (Zinc Sulfate) 220 mg DAILY PO Last administered on 07/03/18 08:50; Admin Dose 220 MG; Start 07/01/18 at 09:00 Enoxaparin Sodium (Lovenox) 40 mg DAILY SC Last administered on 07/03/18 08:53; Admin Dose 40 MG; Start 07/01/18 at 09:00 Potassium Chloride 40 meq/ Sodium Chloride 1,000 ml @ 100 mls/hr Q10H IV Last administered on 07/03/18 05:43; Admin Dose 100 MLS/HR; Start 07/01/18 at 12:00 Linezolid 300 ml @ 300 mls/hr Q12 IVPB Last administered on 07/03/18 08:56; Admin Dose 300 MLS/HR; Start 07/02/18 at 12:00 Meropenem/Sodium Chloride 50 ml @ 100 mls/hr Q12 IVPB Last administered on 07/03/18 08:52; Admin Dose 100 MLS/HR; Start 07/02/18 at 11:30 AIDA BRANDT July 03, 2018 10:40
[2018-07-03] MEDS ORDERED: MAGNESIUM SULFATE 2 GM/50 ML 50 ML IVPB STA (12:27)
[2018-07-03] MEDS ORDERED: SOD CHLORIDE 0.9% 1,000 ML IV ONE (12:30)
[2018-07-03] MEDS: DIGOXIN 0.25 MG TAB PO SCH (13:14)
--- NOTE | 2018-07-03 13:16 | CONS ---
Assessment/Plan Assessment/Plan Hospital Course (Demo Recall) ID PROGRESS NOTE CURRENT ABX: DAY # 3-> Zyvox #1 + Merrem #1 24H INTERVAL SUMMARY * Fevers resolved, b/p remains low normal with 38beats VTACH -- * Lethargic, frail 72 yo M w/encephalopathy, opens eyes, failed swallow eval -- (+)ASP risk * ABX CHANGED yesterday TO ZYVOX + MERREM to cover VRE, MRSA, GNR UTI == CURRENT ABX ONBOARD 24h DIAGNOSTIC IMAGING * 06/30/[address]: * 1. 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 If clinically appropriate further evaluation with MRI examination of the brain is recommended. * 2. Disproportionate enlarged lateral, third, and fourth ventricles relative to the sulcal size consistent with communicating hydrocephalus. In the appropriate clinical setting these findings may reflect normal-pressure hydrocephalus. * 3. Moderate generalized parenchymal volume loss. * 4. Mild chronic microvascular white matter ischemic disease. * 5. Remote lacunar infarct of the right basal ganglia. * 6. Atherosclerosis. * 06/30/2018 CXR: 1. Bibasilar patchy opacities subsegmental atelectasis versus mild infiltrates. 2. Aortic atherosclerosis. MICRO/OTHER * 07/01/18: BCX (+)GPC clusters -> PENDING * 06/30/18 BCX (+)MRSA * 06/30/18 URINE CX (+) URINE CULTURE Preliminary Organism 1 VANCO RESISTANT ENTEROCOCCUS COLONY COUNT >100,000 CFU/ml . MULTI DRUG RESISTANT ORGANISM Organism 2 GRAM NEGATIVE FÁTIMA COLONY COUNT >100,000 CFU/ml Organism 3 NON LACTOSE FERMENTING GNR COLONY COUNT 50,000 - 60,000 CFU/ml VRE M.I.C. RX --------- --- AMPICILLIN <=2 S CIPROFLOXACIN >=8 R FOSFOMYCIN S GENTAMICIN 120 S LEVOFLOXACIN >=8 R LINEZOLID 2 S NITROFURANTOIN <=16 S PENICILLIN-G 8 S QUINUPRISTIN/DALFOPRISTIN 4 R STREPTOMYCIN 300 S VANCOMYCIN >=32 R PHYSICAL EXAMINATION: GENERAL: Frail, lethargic, encephalopathy HEENT: AT, NC, anicteric NECK: Supple, CHEST: Equal chest rise bilaterally, without dyspnea on observation HEART: Pulse = tachy ABDOMEN: Soft / NT EXTREMITIES: Warm, BLEXT SKIN: No rash, no diaphoresis (+) decubs == see photos ID ASSESSMENT 72 yo M w/chronic Schizophrenia and prior vascular dementia admit with: 1. Sepsis on admission w/Fevers > 101.+, leukocytosis, SVT => Multifactorial due to #2 & #3 2. MRSA Bacteremia = Midline SEPSIS -> Midline catheter present on admission now removed 3. Complicated polymicrobial MDRO UTI 4. Acute metabolic encephalopathy secondary to sepsis/ on chronic vascular dementia * CT Brain w/prior infarcts and micro-vascular changes 5. Chronic Schizophrenia -- on psychiatric meds 6. Chronic debility secondary to psychosis 7. Chronic A.Fib w/p RVR on admission due to acute sepsis 8. FALLS RISK = Patient not on anticoagulation likely secondary to being a fall risk 9. Cachexia - protein calorie malnutrition 10. Pressure decubs: Back, sacrococcygeal, bilateral heels ABX ALLERGIES: PCN INVASIVES: PIV CURRENT ABX: DAY #3-> Zyvox #1 + Merrem #1 ID RECOMMENDATIONS/PLAN: 1. ABX CHANGED yesterday TO ZYVOX + MERREM to cover VRE, MRSA, GNR UTI == CURRENT ABX ONBOARD 24h 3. Check MRSA nares pending 4. Repeat BCx are (+)MRSA -- repeat again after ABX onboard . . Consultation Date/Type/Reason Admit Date/Time June 30, 2018 at 08:59 Initial Consult Date Date/Time of Note DATE: 07/03/18 TIME: 13:13 Exam/Review of Systems Exam Vitals Vital Signs Date Temp Pulse Resp B/P (MAP) Pulse Ox O2 O2 Flow FiO2 Time Delivery Rate 07/03/18 95/53 (67) 12:47 07/03/18 207 12:18 07/03/18 98.0 22 Room Air 11:23 07/03/18 96 07:22 Intake and Output 07/02/18 07/02/18 07/03/18 1515:00 23:00 07:00 IntakeIntake Total 100 ml 400 ml 100 ml OutputOutput Total 450 ml 800 ml 600 ml BalanceBalance -350 ml -400 ml -500 ml Results Result Diagram: 07/03/18 0509 07/03/18 0509 Results 24hrs Laboratory Tests Test 07/03/18 05:09 White Blood Count 16.7 H Red Blood Count 2.83 L Hemoglobin 8.4 L Hematocrit 26.4 L Mean Corpuscular Volume 93.3 Mean Corpuscular Hemoglobin 29.7 Mean Corpuscular Hemoglobin Concent 31.8 L Red Cell Distribution Width 14.6 H Platelet Count 237 Mean Platelet Volume 10.2 Immature Granulocytes % 1.400 H Neutrophils % 88.7 H Lymphocytes % 5.9 L Monocytes % 3.8 Eosinophils % 0.1 Basophils % 0.1 Nucleated Red Blood Cells % 0.0 Immature Granulocytes # 0.230 H Neutrophils # 14.8 H Lymphocytes # 1.0 Monocytes # 0.6 Eosinophils # 0.0 Basophils # 0.0 Nucleated Red Blood Cells # 0.0 Sodium Level 145 H Potassium Level 3.7 Chloride Level 116 H Carbon Dioxide Level 24 Anion Gap 5 Blood Urea Nitrogen 16 Creatinine 0.53 L Est Glomerular Filtrat Rate mL/min > 60 Glucose Level 116 Calcium Level 7.8 L Magnesium Level 2.4 Medications Medication Current Medications IV Flush (NS 3 ml) 3 ml PER PROTOCOL IV ; Start 06/30/18 at 15:00 Ondansetron HCl (Zofran Inj) 4 mg Q6H PRN IV NAUSEA/VOMITING; Start 06/30/18 at 15:00 Acetaminophen/ Hydrocodone Bitart ([place] (5/325)) 1 tab Q6H PRN PO .MOD PAIN 4- 6 Last administered on 06/30/18at 20:09; Admin Dose 1 TAB; Start 06/30/18 at 15:00 Morphine Sulfate (morphine) 2 mg Q4H PRN IV .SEVERE PAIN 7-10; Start 06/30/18 at 15:00 Docusate Sodium (Colace) 100 mg Q12H PRN PO .CONSTIPATION; Start 06/30/18 at 15:00 Zolpidem Tartrate (Ambien) 5 mg QHS PRN PO .INSOMNIA; Start 06/30/18 at 15:00 Acetaminophen (Tylenol Tab) 650 mg Q6H PRN PO PAIN LEVEL 1-3 OR FEVER Last administered on 06/30/18at 17:25; Admin Dose 650 MG; Start 06/30/18 at 15:00 Ascorbic Acid (Vitamin C) 500 mg DAILY PO Last administered on 07/03/18 08:50; Admin Dose 500 MG; Start 07/01/18 at 09:00 Benztropine Mesylate (Cogentin) 1 mg DAILY PO Last administered on 07/03/18 08:50; Admin Dose 1 MG; Start 07/01/18 at 09:00 Digoxin (Digoxin) 0.25 mg DAILY@1300 PO Last administered on 07/02/18 15:03; Admin Dose 0.25 MG; Start 07/01/18 at 13:00 Diltiazem HCl (Cardizem) 30 mg TID PO Last administered on 07/03/18 08:52; Admin Dose 30 MG; Start 06/30/18 at 21:00 Lactobacillus Acidophilus/ Rhamnosus (Culturelle) 1 cap BID PO Last administered on 07/03/18 08:50; Admin Dose 1 CAP; Start 06/30/18 at 21:00 Megestrol Acetate (Megace Susp) 400 mg BID PO Last administered on 07/03/18 08:52; Admin Dose 400 MG; Start 06/30/18 at 21:00 Mirtazapine (Remeron) 15 mg HS PO Last administered on 07/02/18 20:55; Admin Dose 15 MG; Start 06/30/18 at 21:00 Multivitamins Therapeutic (Theragran) 1 tab DAILY PO Last administered on 07/03/18 08:50; Admin Dose 1 TAB; Start 07/01/18 at 09:00 Pantoprazole (Protonix Tab) 40 mg DAILY PO Last administered on 07/03/18 08:56; Admin Dose 40 MG; Start 07/01/18 at 09:00 Zinc Sulfate (Zinc Sulfate) 220 mg DAILY PO Last administered on 07/03/18 08:50; Admin Dose 220 MG; Start 07/01/18 at 09:00 Enoxaparin Sodium (Lovenox) 40 mg DAILY SC Last administered on 07/03/18 08:53; Admin Dose 40 MG; Start 07/01/18 at 09:00 Potassium Chloride 40 meq/ Sodium Chloride 1,000 ml @ 100 mls/hr Q10H IV Last administered on 07/03/18 05:43; Admin Dose 100 MLS/HR; Start 07/01/18 at 12:00 Linezolid 300 ml @ 300 mls/hr Q12 IVPB Last administered on 07/03/18at 08:56; Admin Dose 300 MLS/HR; Start 07/02/18 at 12:00 Meropenem/Sodium Chloride 50 ml @ 100 mls/hr Q12 IVPB Last administered on 07/03/18at 08:52; Admin Dose 100 MLS/HR; Start 07/02/18 at 11:30 Sodium Chloride 1,000 ml @ 1,000 mls/hr Q1H ONCE IV Last administered on 07/03/18at 12:47; Admin Dose 1,000 MLS/HR; Start 07/03/18 at 12:30; Stop 07/03/18 at 13:29 Magnesium Sulfate 50 ml @ 25 mls/hr ONCE STAT IVPB Last administered on 07/03/18at 12:46; Admin Dose 25 MLS/HR; Start 07/03/18 at 12:27; Stop 07/03/18 at 14:26 NEYDA DUENAS NP July 03, 2018 13:16
--- NOTE | 2018-07-03 16:01 | CONS ---
Assessment/Plan Assessment/Plan Hospital Course (Demo Recall) Wide-complex tachycardia: Most likely consistent with atrial fibrillation with aberrancy Atrial fibrillation currently persistent Possible sepsis Encephalopathy UTI Recommendations: We will continue with the current cardiac care including heart rate control with Cardizem and digoxin. Check digoxin level tomorrow to rule out this toxicity Cardizem will be continued for heart rate control. Antibiotic management as per internal medicine. Thank you for his referral. We will continue to follow along with you until Dr. Vyas tends Wednesday Consultation Date/Type/Reason Admit Date/Time June 30, 2018 at 08:59 Date of Consultation: July 03, 2018 Type of Consult Cardiology Reason for Consultation Arrhythmias Requesting Provider: AIDA BRANDT Date/Time of Note DATE: 07/03/18 TIME: 15:56 Hx of Present Illness Interventional cardiology consultation note Chief complaint: Encephalopathy Reason for consult: Wide-complex tachycardia History of present illness: Thank you for this referral. History was able to review of the chart review of the old chart patient still has not able to provide reliable history. Discussed with the staff and physicians. This is a 72-year-old male with a history of schizophrenia, A. fib, BPH, debility who resides in a retirement. Patient presents with acute encephalopathy, in the ER UA suggested UTI. Patient is a poor historian and history is obtained from previous documentation. On the monitor he was noted to have episodes of wide-complex tachycardia. Patient had atrial fibrillation at least since February 2018 which was seen by Dr. Vyas and Dr Joseph here. He has remained in atrial fibrillation. Heart rate is under good control but intermittently becomes tachycardic. Review of rhythm strips the patient has multiple episodes of wide-complex tachycardia. This episode have been irregular and most likely consistent with atrial f ibrillation with aberrancy Allergies PCN Medications were reviewed as per medical reconciliation sheet Family history: No report of any early coronary artery disease in the family Social history: Lives in a retirement non-smoker Past medical history: Atrial fibrillation, psych disorder schizophrenia, hypertension, BPH Review of system: Patient denies all others except for above-mentioned Past Medical History Home Meds Active Scripts Lactobacillus Rhamnosus GG (Culturelle) 1 Each Capsule, 1 CAP PO BID for 30 Days, CAP Prov:PERLA NARANJO MD 03/19/18 Acetaminophen* (Tylenol*) 325 Mg Tablet, 650 MG PO Q6H PRN for PAIN LEVEL 1-3 OR FEVER for 30 Days, TAB Prov:PERLA NARANJO MD 03/19/18 Diltiazem Hcl* (Cardizem*) 30 Mg Tablet, 30 MG PO TID for 30 Days, TAB Prov:PERLA NARANJO MD 03/19/18 Reported Medications Zinc Sulfate* (Zinc Sulfate*) 220 Mg Tablet, 220 MG PO DAILY, TAB 06/30/18 Ascorbic Acid (Vitamin C) 500 Mg Tab, 500 MG PO DAILY, TAB 06/30/18 Mirtazapine* (Remeron*) 15 Mg Tablet, 15 MG PO HS, TAB 06/30/18 Pantoprazole* (Protonix*) 40 Mg Tablet.dr, 40 MG PO DAILY, TAB 06/30/18 Multivitamins* (Theragran*) 1 Tab Tab, 1 TAB PO DAILY, TAB 06/30/18 Megestrol Acetate* (Megestrol Acetate*) 400 Mg/10 Ml Susp, 400 MG PO BID, ML 06/30/18 Digoxin* (Digitek*) 250 Mcg Tablet, 0.25 MG PO DAILY, TAB 06/30/18 Benztropine Mesylate* (Benztropine Mesylate*) 1 Mg Tablet, 1 MG PO DAILY, TAB 03/13/18 Discontinued Reported Medications Zolpidem Tartrate* (Ambien*) 5 Mg Tablet, 5 MG PO QHS PRN for INSOMNIA, #30 TAB 03/13/18 Haloperidol* (Haldol*) 5 Mg Tab, 5 MG PO TID, TAB 03/13/18 Discontinued Scripts Docusate Sodium (Dok) 100 Mg Capsule, 100 MG PO Q12H for 30 Days, CAP Prov:PERLA NARANJO MD 03/19/18 Balsam [place] Oil (Venelex Ointment) 60 Gm Oint..gm., 1 APPLIC TOP BID, #1 Prov:PERLA NARANJO MD 03/19/18 Polyethylene Glycol* (Miralax*) 17 Gm Powd.pack, 17 GM PO BID for 30 Days Prov:PERLA NARANJO MD 03/19/18 Ondansetron Hcl* (Ondansetron Hcl* Inj) 4 Mg/2 Ml Vial, 4 MG IV Q6H PRN for NAUSEA AND/OR VOMITING for 30 Days, VIAL Prov:PERLA NARANJO MD 03/19/18 Tamsulosin Hcl* (Flomax*) 0.4 Mg Cap.er.24h, 0.4 MG PO HS for 30 Days, CAP Prov:PERLA NARANJO MD 03/19/18 Metoprolol Tartrate* (Lopressor*) 50 Mg Tab, 50 MG PO TID for 30 Days, TAB Prov:PERLA NARANJO MD 03/19/18 Apixaban* (Eliquis*) 5 Mg Tablet, 5 MG PO BID for 30 Days, TAB Prov:PERLA NARANJO MD 03/19/18 Medications Current Medications IV Flush (NS 3 ml) 3 ml PER PROTOCOL IV ; Start 06/30/18 at 15:00 Ondansetron HCl (Zofran Inj) 4 mg Q6H PRN IV NAUSEA/VOMITING; Start 06/30/18 at 15:00 Acetaminophen/ Hydrocodone Bitart ([place] (5/325)) 1 tab Q6H PRN PO .MOD PAIN 4- 6 Last administered on 06/30/18at 20:09; Admin Dose 1 TAB; Start 06/30/18 at 15:00 Morphine Sulfate (morphine) 2 mg Q4H PRN IV .SEVERE PAIN 7-10; Start 06/30/18 at 15:00 Docusate Sodium (Colace) 100 mg Q12H PRN PO .CONSTIPATION; Start 06/30/18 at 15:00 Zolpidem Tartrate (Ambien) 5 mg QHS PRN PO .INSOMNIA; Start 06/30/18 at 15:00 Acetaminophen (Tylenol Tab) 650 mg Q6H PRN PO PAIN LEVEL 1-3 OR FEVER Last administered on 06/30/18at 17:25; Admin Dose 650 MG; Start 06/30/18 at 15:00 Ascorbic Acid (Vitamin C) 500 mg DAILY PO Last administered on 07/03/18 08:50; Admin Dose 500 MG; Start 07/01/18 at 09:00 Benztropine Mesylate (Cogentin) 1 mg DAILY PO Last administered on 07/03/18at 08:50; Admin Dose 1 MG; Start 07/01/18 at 09:00 Digoxin (Digoxin) 0.25 mg DAILY@1300 PO Last administered on 07/03/18at 13:14; Admin Dose 0.25 MG; Start 07/01/18 at 13:00 Diltiazem HCl (Cardizem) 30 mg TID PO Last administered on 07/03/18 13:14; Admin Dose 30 MG; Start 06/30/18 at 21:00 Lactobacillus Acidophilus/ Rhamnosus (Culturelle) 1 cap BID PO Last administered on 07/03/18 08:50; Admin Dose 1 CAP; Start 06/30/18 at 21:00 Megestrol Acetate (Megace Susp) 400 mg BID PO Last administered on 07/03/18 08:52; Admin Dose 400 MG; Start 06/30/18 at 21:00 Mirtazapine (Remeron) 15 mg HS PO Last administered on 07/02/18 20:55; Admin Dose 15 MG; Start 06/30/18 at 21:00 Multivitamins Therapeutic (Theragran) 1 tab DAILY PO Last administered on 07/03/18 08:50; Admin Dose 1 TAB; Start 07/01/18 at 09:00 Pantoprazole (Protonix Tab) 40 mg DAILY PO Last administered on 07/03/18 08:56; Admin Dose 40 MG; Start 07/01/18 at 09:00 Zinc Sulfate (Zinc Sulfate) 220 mg DAILY PO Last administered on 07/03/18 08:50; Admin Dose 220 MG; Start 07/01/18 at 09:00 Enoxaparin Sodium (Lovenox) 40 mg DAILY SC Last administered on 07/03/18 08:53; Admin Dose 40 MG; Start 07/01/18 at 09:00 Potassium Chloride 40 meq/ Sodium Chloride 1,000 ml @ 100 mls/hr Q10H IV Last administered on 07/03/18 05:43; Admin Dose 100 MLS/HR; Start 07/01/18 at 12:00 Linezolid 300 ml @ 300 mls/hr Q12 IVPB Last administered on 07/03/18 08:56; Admin Dose 300 MLS/HR; Start 07/02/18 at 12:00 Meropenem/Sodium Chloride 50 ml @ 100 mls/hr Q12 IVPB Last administered on 07/03/18 08:52; Admin Dose 100 MLS/HR; Start 07/02/18 at 11:30 Allergies: Coded Allergies: Penicillins (Verified Allergy, Unknown, 06/30/18) Social History Alcohol Use: rarely Smoking Status: Unknown if ever smoked Drug Use: none Exam/Review of Systems Vital Signs Vitals Vital Signs Date Temp Pulse Resp B/P (MAP) Pulse Ox O2 O2 Flow FiO2 Time Delivery Rate 07/03/18 97.8 78 22 99/56 (70) 96 Nasal 2.0 15:37 Cannula Intake and Output 07/02/18 07/02/18 07/03/18 1414:59 22:59 06:59 IntakeIntake Total 100 ml 400 ml 100 ml OutputOutput Total 450 ml 800 ml 600 ml BalanceBalance -350 ml -400 ml -500 ml Exam Exam General: Elderly disheveled looking gentleman in no acute distress HEENT: NC/AT. pupils are equal. round. NECK: NO JVD. no stridor. CV: Irregularly irregular. systolic murmur; no gallop or rubs. PULM: no wheezing MILD rhonchi. GI: SOFT, NT, ND, no rebound or guarding Extremity: trace B/L LE edema. no clubbing. neuro: Drowsy Psych: calm and pleasant rectal: deferred : normal EKG shows atrial fibrillation. Echocardiogram done February read by Dr. Vyas shows normal LV systolic ejection fraction about 55% Labs Result Diagram: 07/03/18 0509 07/03/18 0509 Results 24hrs Laboratory Tests Test 07/03/18 05:09 White Blood Count 16.7 H Red Blood Count 2.83 L Hemoglobin 8.4 L Hematocrit 26.4 L Mean Corpuscular Volume 93.3 Mean Corpuscular Hemoglobin 29.7 Mean Corpuscular Hemoglobin Concent 31.8 L Red Cell Distribution Width 14.6 H Platelet Count 237 Mean Platelet Volume 10.2 Immature Granulocytes % 1.400 H Neutrophils % 88.7 H Lymphocytes % 5.9 L Monocytes % 3.8 Eosinophils % 0.1 Basophils % 0.1 Nucleated Red Blood Cells % 0.0 Immature Granulocytes # 0.230 H Neutrophils # 14.8 H Lymphocytes # 1.0 Monocytes # 0.6 Eosinophils # 0.0 Basophils # 0.0 Nucleated Red Blood Cells # 0.0 Sodium Level 145 H Potassium Level 3.7 Chloride Level 116 H Carbon Dioxide Level 24 Anion Gap 5 Blood Urea Nitrogen 16 Creatinine 0.53 L Est Glomerular Filtrat Rate mL/min > 60 Glucose Level 116 Calcium Level 7.8 L Magnesium Level 2.4 Medications Medications Current Medications IV Flush (NS 3 ml) 3 ml PER PROTOCOL IV ; Start 06/30/18 at 15:00 Ondansetron HCl (Zofran Inj) 4 mg Q6H PRN IV NAUSEA/VOMITING; Start 06/30/18 at 15:00 Acetaminophen/ Hydrocodone Bitart ([place] (5/325)) 1 tab Q6H PRN PO .MOD PAIN 4- 6 Last administered on 06/30/18 20:09; Admin Dose 1 TAB; Start 06/30/18 at 15:00 Morphine Sulfate (morphine) 2 mg Q4H PRN IV .SEVERE PAIN 7-10; Start 06/30/18 at 15:00 Docusate Sodium (Colace) 100 mg Q12H PRN PO .CONSTIPATION; Start 06/30/18 at 15:00 Zolpidem Tartrate (Ambien) 5 mg QHS PRN PO .INSOMNIA; Start 06/30/18 at 15:00 Acetaminophen (Tylenol Tab) 650 mg Q6H PRN PO PAIN LEVEL 1-3 OR FEVER Last administered on 06/30/18 17:25; Admin Dose 650 MG; Start 06/30/18 at 15:00 Ascorbic Acid (Vitamin C) 500 mg DAILY PO Last administered on 07/03/18 08:50; Admin Dose 500 MG; Start 07/01/18 at 09:00 Benztropine Mesylate (Cogentin) 1 mg DAILY PO Last administered on 07/03/18 08:50; Admin Dose 1 MG; Start 07/01/18 at 09:00 Digoxin (Digoxin) 0.25 mg DAILY@1300 PO Last administered on 07/03/18 13:14; Admin Dose 0.25 MG; Start 07/01/18 at 13:00 Diltiazem HCl (Cardizem) 30 mg TID PO Last administered on 07/03/18 13:14; Admin Dose 30 MG; Start 06/30/18 at 21:00 Lactobacillus Acidophilus/ Rhamnosus (Culturelle) 1 cap BID PO Last administered on 07/03/18 08:50; Admin Dose 1 CAP; Start 06/30/18 at 21:00 Megestrol Acetate (Megace Susp) 400 mg BID PO Last administered on 07/03/18 08:52; Admin Dose 400 MG; Start 06/30/18 at 21:00 Mirtazapine (Remeron) 15 mg HS PO Last administered on 07/02/18 20:55; Admin Dose 15 MG; Start 06/30/18 at 21:00 Multivitamins Therapeutic (Theragran) 1 tab DAILY PO Last administered on 07/03/18 08:50; Admin Dose 1 TAB; Start 07/01/18 at 09:00 Pantoprazole (Protonix Tab) 40 mg DAILY PO Last administered on 07/03/18 08:56; Admin Dose 40 MG; Start 07/01/18 at 09:00 Zinc Sulfate (Zinc Sulfate) 220 mg DAILY PO Last administered on 07/03/18 08:50; Admin Dose 220 MG; Start 07/01/18 at 09:00 Enoxaparin Sodium (Lovenox) 40 mg DAILY SC Last administered on 07/03/18 08:53; Admin Dose 40 MG; Start 07/01/18 at 09:00 Potassium Chloride 40 meq/ Sodium Chloride 1,000 ml @ 100 mls/hr Q10H IV Last administered on 07/03/18 05:43; Admin Dose 100 MLS/HR; Start 07/01/18 at 12:00 Linezolid 300 ml @ 300 mls/hr Q12 IVPB Last administered on 07/03/18 08:56; Admin Dose 300 MLS/HR; Start 07/02/18 at 12:00 Meropenem/Sodium Chloride 50 ml @ 100 mls/hr Q12 IVPB Last administered on 07/03/18 08:52; Admin Dose 100 MLS/HR; Start 07/02/18 at 11:30 NIKKO ENGLE MD July 03, 2018 16:01
[2018-07-03] MEDS: MIRTAZAPINE 15 MG TAB PO SCH (20:56)
[2018-07-04] VITALS (12 sets, daily range): BP systolic 93–117; BP diastolic 49–66; PULSE 77–103; RESP 20
[2018-07-04] MEDS: POTASSIUM CHLORIDE 40 MEQ in SOD CHLORIDE 0.9% 1,000 ML IV SCH ×2
[2018-07-04] MEDS: DILTIAZEM 30 MG TAB PO SCH ×3 (09:00→21:00)
[2018-07-04] MEDS: MEROPENEM 1 GM/50ML(PMX) 50 ML IVPB SCH ×2 (09:30→21:31)
[2018-07-04] MEDS: LACTOBACILLUS RHAMNOSUS CAP PO SCH ×2 (09:31→21:32)
[2018-07-04] MEDS: PANTOPRAZOLE (EC) 40 MG TAB PO SCH (09:31)
[2018-07-04] MEDS: ASCORBIC ACID 500 MG TAB PO SCH (09:31)
[2018-07-04] MEDS: ZINC SULFATE 220 MG CAP PO SCH (09:31)
[2018-07-04] MEDS: MEGESTROL (40 MG/ML) 10ML CUP PO SCH ×2 (09:31→21:32)
[2018-07-04] MEDS: MULTIVITAMINS THERAPEUTIC TAB PO SCH (09:31)
[2018-07-04] MEDS: BENZTROPINE 1 MG TAB PO SCH (09:32)
[2018-07-04] MEDS: ENOXAPARIN 40 MG/0.4 ML SYG SC SCH (10:07)
[2018-07-04] MEDS: BALSAM PERU/CASTOR OIL 60 GM TUBE TOP SCH ×2 (10:31→21:32)
[2018-07-04] MEDS: LINEZOLID 600 MG/D5W (PMX) 300 ML IVPB SCH ×2 (10:32→21:48)
[2018-07-04] MEDS: DIGOXIN 0.25 MG TAB PO SCH (14:09)
[2018-07-04] MEDS: COLLAGENASE 5 GM (UD JAR) TOP SCH ×2 (15:21→21:32)
--- NOTE | 2018-07-04 15:23 | CONS ---
Assessment/Plan Assessment/Plan Hospital Course (Demo Recall) Patient is lethargic looks comfortable no fevers overnight WBC 14.1 platelets 244 neutrophils 82 BUN 14 creatinine 0.49 Microbiology: Blood cultures since admission grew MRSA, urine culture grew VRE E. coli ESBL and Enterobacter cloaca Antimicrobials: Zyvox, meropenem Physical examination: Fragile elderly man who is in no distress. Head atraumatic normocephalic neck is supple chest rise symmetrical breath sounds diminished bases. Heart: S1-S2. Abdomen soft bowel sounds present. Extr emities without cyanosis Assessment: 1. Persistent MRSA bacteremia on admission likely secondary to line that was discontinued, rule out vegetations 2. Polymicrobial UTI 3. Acute on chronic encephalopathy 4. Cachexia 5. Atrial fibrillation status post RVR Plan: Patient is clinically stable, cardiology on case, continue antibiotics consider 2D echo if it has not been done and repeat blood cultures again today Consultation Date/Type/Reason Admit Date/Time June 30, 2018 at 08:59 Initial Consult Date 07/03/18 Type of Consult id Requesting Provider: AIDA BRANDT Date/Time of Note DATE: 07/04/18 TIME: 15:23 Exam/Review of Systems Exam Vitals Vital Signs Date Temp Pulse Resp B/P (MAP) Pulse Ox O2 O2 Flow FiO2 Time Delivery Rate 07/04/18 97.7 103 20 96/56 (69) 96 Nasal 15:05 Cannula 07/04/18 2.0 08:00 Intake and Output 07/03/18 07/03/18 07/04/18 1515:00 23:00 07:00 IntakeIntake Total 1250 ml 400 ml OutputOutput Total 650 ml 700 ml BalanceBalance 600 ml -300 ml Results Result Diagram: 07/04/18 0514 07/04/18 0514 Results 24hrs Laboratory Tests Test 07/04/18 05:13 07/04/18 05:14 Digoxin Level 0.8 L White Blood Count 14.1 H Red Blood Count 2.96 L Hemoglobin 8.8 L Hematocrit 27.6 L Mean Corpuscular Volume 93.2 Mean Corpuscular Hemoglobin 29.7 Mean Corpuscular Hemoglobin Concent 31.9 L Red Cell Distribution Width 14.7 H Platelet Count 244 Mean Platelet Volume 10.1 Immature Granulocytes % 2.200 H Neutrophils % 82.0 H Lymphocytes % 9.9 L Monocytes % 5.2 Eosinophils % 0.4 Basophils % 0.3 Nucleated Red Blood Cells % 0.0 Immature Granulocytes # 0.310 H Neutrophils # 11.6 H Lymphocytes # 1.4 Monocytes # 0.7 Eosinophils # 0.1 Basophils # 0.0 Nucleated Red Blood Cells # 0.0 Sodium Level 143 Potassium Level 4.1 Chloride Level 117 H Carbon Dioxide Level 23 Anion Gap 3 L Blood Urea Nitrogen 14 Creatinine 0.49 L Est Glomerular Filtrat Rate mL/min > 60 Glucose Level 99 Calcium Level 7.6 L Magnesium Level 2.4 Total Bilirubin 0.4 Direct Bilirubin 0.00 Indirect Bilirubin 0.4 Aspartate Amino Transf (AST/SGOT) 25 Alanine Aminotransferase (ALT/SGPT) 31 Alkaline Phosphatase 82 Total Protein 4.8 L Albumin 2.0 L Globulin 2.80 Albumin/Globulin Ratio 0.71 Thyroid Stimulating Hormone (TSH) 1.730 Free Thyroxine 1.98 Medications Medication Current Medications IV Flush (NS 3 ml) 3 ml PER PROTOCOL IV ; Start 06/30/18 at 15:00 Ondansetron HCl (Zofran Inj) 4 mg Q6H PRN IV NAUSEA/VOMITING; Start 06/30/18 at 15:00 Acetaminophen/ Hydrocodone Bitart ([place] (5/325)) 1 tab Q6H PRN PO .MOD PAIN 4- 6 Last administered on 06/30/18at 20:09; Admin Dose 1 TAB; Start 06/30/18 at 15:00 Morphine Sulfate (morphine) 2 mg Q4H PRN IV .SEVERE PAIN 7-10; Start 06/30/18 at 15:00 Docusate Sodium (Colace) 100 mg Q12H PRN PO .CONSTIPATION; Start 06/30/18 at 15:00 Zolpidem Tartrate (Ambien) 5 mg QHS PRN PO .INSOMNIA; Start 06/30/18 at 15:00 Acetaminophen (Tylenol Tab) 650 mg Q6H PRN PO PAIN LEVEL 1-3 OR FEVER Last administered on 06/30/18at 17:25; Admin Dose 650 MG; Start 06/30/18 at 15:00 Ascorbic Acid (Vitamin C) 500 mg DAILY PO Last administered on 07/04/18at 09:31; Admin Dose 500 MG; Start 07/01/18 at 09:00 Benztropine Mesylate (Cogentin) 1 mg DAILY PO Last administered on 07/04/18 09:32; Admin Dose 1 MG; Start 07/01/18 at 09:00 Digoxin (Digoxin) 0.25 mg DAILY@1300 PO Last administered on 07/04/18 14:09; Admin Dose 0.25 MG; Start 07/01/18 at 13:00 Diltiazem HCl (Cardizem) 30 mg TID PO Last administered on 07/04/18 14:11; Admin Dose 30 MG; Start 06/30/18 at 21:00 Lactobacillus Acidophilus/ Rhamnosus (Culturelle) 1 cap BID PO Last administered on 07/04/18 09:31; Admin Dose 1 CAP; Start 06/30/18 at 21:00 Megestrol Acetate (Megace Susp) 400 mg BID PO Last administered on 07/04/18 09:31; Admin Dose 400 MG; Start 06/30/18 at 21:00 Mirtazapine (Remeron) 15 mg HS PO Last administered on 07/03/18 20:56; Admin Dose 15 MG; Start 06/30/18 at 21:00 Multivitamins Therapeutic (Theragran) 1 tab DAILY PO Last administered on 07/04/18 09:31; Admin Dose 1 TAB; Start 07/01/18 at 09:00 Pantoprazole (Protonix Tab) 40 mg DAILY PO Last administered on 07/04/18 09:31; Admin Dose 40 MG; Start 07/01/18 at 09:00 Zinc Sulfate (Zinc Sulfate) 220 mg DAILY PO Last administered on 07/04/18 09:31; Admin Dose 220 MG; Start 07/01/18 at 09:00 Enoxaparin Sodium (Lovenox) 40 mg DAILY SC Last administered on 07/04/18 10:07; Admin Dose 40 MG; Start 07/01/18 at 09:00 Linezolid 300 ml @ 300 mls/hr Q12 IVPB Last administered on 07/04/18 10:32; Admin Dose 300 MLS/HR; Start 07/02/18 at 12:00 Meropenem/Sodium Chloride 50 ml @ 100 mls/hr Q12 IVPB Last administered on 07/04/18 09:30; Admin Dose 100 MLS/HR; Start 07/02/18 at 11:30 Collagenase (Santyl) 1 applic BID TOP Last administered on 07/04/18at 15:21; Admin Dose 1 APPLIC; Start 07/04/18 at 14:30 SANDER WILL NP July 04, 2018 15:23
--- NOTE | 2018-07-04 15:38 | CONS ---
Assessment/Plan Assessment/Plan Hospital Course 72 yo M with multiple comorbidities who presents for evaluation of altered mental status. A HCT was obtained and notable for ventriculomegaly and degenerative changes... for which neurology is consulted. The ventriculomegaly is likely chronic, and without acute clinical significance.. P: Start ASA for secondary stroke prevention Add lipid panel Recommend repeat neuroimaging for surveillance, as an outpatient [place] as able Limit sedating medications where possible PT/OT/ST as necessary Other management per primary Will follow clinically Consultation Date/Type/Reason Admit Date/Time June 30, 2018 at 08:59 Type of Consult Neurology Reason for Consultation hydrocephalus Requesting Provider: DEBBIE GALLEGOS MD Date/Time of Note DATE: 07/04/18 TIME: 15:35 Hx of Present Illness The pt is currently unable to contribute a hx. It is elsewhere noted: Hx of Present Illness Patient is a 72-year-old male with a history of schizophrenia, A. fib, BPH, debility who resides in a fdc ([facility])(. Patient presents with acute encephalopathy, in the ER, UA suggested UTI. Patient is a poor historian and history is obtained from previous documentation. unable to obtain d/t ams Exam/Review of Systems Exam Vitals Vital Signs Date Temp Pulse Resp B/P (MAP) Pulse Ox O2 O2 Flow FiO2 Time Delivery Rate 07/04/18 97.7 103 20 96/56 (69) 96 Nasal 15:05 Cannula 07/04/18 2.0 08:00 Intake and Output 07/03/18 07/03/18 07/04/18 1515:00 23:00 07:00 IntakeIntake Total 1250 ml 400 ml OutputOutput Total 650 ml 700 ml BalanceBalance 600 ml -300 ml Exam PE: Gen Appearance: No Apparent Distress HEENT: Normocephalic; nasal cannula Cardiovascular: Regular rate Abdomen: Soft Extremities: Dry NE: The patient was lethargic, and opens eyes to voice. Sparsely verbal. Oriented to self only. Able to follow appendicular commands only in the upper extremities. Cranial nerve examination was limited by mental status. Pupils were equal and reactive to light. There was no afferent pupillary defect. Funduscopic examination was limited. Face was grossly symmetric, w/ present corneal and cough reflexes. Tone was normal. Muscle bulk was reduced. I did not see fasciculations. The patient was generally very weak, symmetrically Coordination and gait testing was limited by mental status. Arm and leg reflexes were within normal limits and symmetric. Martinez's sign was absent. Plantar responses were flexor. Results Result Diagram: 07/04/1814 07/04/18 0514 Results 24hrs Laboratory Tests Test 07/04/18 05:13 07/04/18 05:14 Digoxin Level 0.8 L White Blood Count 14.1 H Red Blood Count 2.96 L Hemoglobin 8.8 L Hematocrit 27.6 L Mean Corpuscular Volume 93.2 Mean Corpuscular Hemoglobin 29.7 Mean Corpuscular Hemoglobin Concent 31.9 L Red Cell Distribution Width 14.7 H Platelet Count 244 Mean Platelet Volume 10.1 Immature Granulocytes % 2.200 H Neutrophils % 82.0 H Lymphocytes % 9.9 L Monocytes % 5.2 Eosinophils % 0.4 Basophils % 0.3 Nucleated Red Blood Cells % 0.0 Immature Granulocytes # 0.310 H Neutrophils # 11.6 H Lymphocytes # 1.4 Monocytes # 0.7 Eosinophils # 0.1 Basophils # 0.0 Nucleated Red Blood Cells # 0.0 Sodium Level 143 Potassium Level 4.1 Chloride Level 117 H Carbon Dioxide Level 23 Anion Gap 3 L Blood Urea Nitrogen 14 Creatinine 0.49 L Est Glomerular Filtrat Rate mL/min > 60 Glucose Level 99 Calcium Level 7.6 L Magnesium Level 2.4 Total Bilirubin 0.4 Direct Bilirubin 0.00 Indirect Bilirubin 0.4 Aspartate Amino Transf (AST/SGOT) 25 Alanine Aminotransferase (ALT/SGPT) 31 Alkaline Phosphatase 82 Total Protein 4.8 L Albumin 2.0 L Globulin 2.80 Albumin/Globulin Ratio 0.71 Thyroid Stimulating Hormone (TSH) 1.730 Free Thyroxine 1.98 Medications Medication Current Medications IV Flush (NS 3 ml) 3 ml PER PROTOCOL IV ; Start 06/30/18 at 15:00 Ondansetron HCl (Zofran Inj) 4 mg Q6H PRN IV NAUSEA/VOMITING; Start 06/30/18 at 15:00 Acetaminophen/ Hydrocodone Bitart ([place] (5/325)) 1 tab Q6H PRN PO .MOD PAIN 4- 6 Last administered on 06/30/18at 20:09; Admin Dose 1 TAB; Start 06/30/18 at 15:00 Morphine Sulfate (morphine) 2 mg Q4H PRN IV .SEVERE PAIN 7-10; Start 06/30/18 at 15:00 Docusate Sodium (Colace) 100 mg Q12H PRN PO .CONSTIPATION; Start 06/30/18 at 15:00 Zolpidem Tartrate (Ambien) 5 mg QHS PRN PO .INSOMNIA; Start 06/30/18 at 15:00 Acetaminophen (Tylenol Tab) 650 mg Q6H PRN PO PAIN LEVEL 1-3 OR FEVER Last administered on 06/30/18 17:25; Admin Dose 650 MG; Start 06/30/18 at 15:00 Ascorbic Acid (Vitamin C) 500 mg DAILY PO Last administered on 07/04/18 09:31; Admin Dose 500 MG; Start 07/01/18 at 09:00 Benztropine Mesylate (Cogentin) 1 mg DAILY PO Last administered on 07/04/18 09:32; Admin Dose 1 MG; Start 07/01/18 at 09:00 Digoxin (Digoxin) 0.25 mg DAILY@1300 PO Last administered on 07/04/18 14:09; Admin Dose 0.25 MG; Start 07/01/18 at 13:00 Diltiazem HCl (Cardizem) 30 mg TID PO Last administered on 07/04/18 14:11; Adm in Dose 30 MG; Start 06/30/18 at 21:00 Lactobacillus Acidophilus/ Rhamnosus (Culturelle) 1 cap BID PO Last administered on 07/04/18 09:31; Admin Dose 1 CAP; Start 06/30/18 at 21:00 Megestrol Acetate (Megace Susp) 400 mg BID PO Last administered on 07/04/18 09:31; Admin Dose 400 MG; Start 06/30/18 at 21:00 Mirtazapine (Remeron) 15 mg HS PO Last administered on 07/03/18 20:56; Admin Dose 15 MG; Start 06/30/18 at 21:00 Multivitamins Therapeutic (Theragran) 1 tab DAILY PO Last administered on 06/22 09:31; Admin Dose 1 TAB; Start 07/01/18 at 09:00 Pantoprazole (Protonix Tab) 40 mg DAILY PO Last administered on 07/04/18 09:31; Admin Dose 40 MG; Start 07/01/18 at 09:00 Zinc Sulfate (Zinc Sulfate) 220 mg DAILY PO Last administered on 07/04/18at 09:31; Admin Dose 220 MG; Start 07/01/18 at 09:00 Enoxaparin Sodium (Lovenox) 40 mg DAILY SC Last administered on 07/04/18at 10:07; Admin Dose 40 MG; Start 07/01/18 at 09:00 Linezolid 300 ml @ 300 mls/hr Q12 IVPB Last administered on 07/04/18at 10:32; Admin Dose 300 MLS/HR; Start 07/02/18 at 12:00 Meropenem/Sodium Chloride 50 ml @ 100 mls/hr Q12 IVPB Last administered on 07/04/18at 09:30; Admin Dose 100 MLS/HR; Start 07/02/18 at 11:30 Collagenase (Santyl) 1 applic BID TOP Last administered on 07/04/18at 15:21; Admin Dose 1 APPLIC; Start 07/04/18 at 14:30 Past Medical History reviewed Home Meds Active Scripts Lactobacillus Rhamnosus GG (Culturelle) 1 Each Capsule, 1 CAP PO BID for 30 Days, CAP Prov:PERLA NARANJO MD 03/19/18 Acetaminophen* (Tylenol*) 325 Mg Tablet, 650 MG PO Q6H PRN for PAIN LEVEL 1-3 OR FEVER for 30 Days, TAB Prov:PERLA NARANJO MD 03/19/18 Diltiazem Hcl* (Cardizem*) 30 Mg Tablet, 30 MG PO TID for 30 Days, TAB Prov:PERLA NARANJO MD 03/19/18 Reported Medications Zinc Sulfate* (Zinc Sulfate*) 220 Mg Tablet, 220 MG PO DAILY, TAB 06/30/18 Ascorbic Acid (Vitamin C) 500 Mg Tab, 500 MG PO DAILY, TAB 06/30/18 Mirtazapine* (Remeron*) 15 Mg Tablet, 15 MG PO HS, TAB 06/30/18 Pantoprazole* (Protonix*) 40 Mg Tablet.dr, 40 MG PO DAILY, TAB 06/30/18 Multivitamins* (Theragran*) 1 Tab Tab, 1 TAB PO DAILY, TAB 06/30/18 Megestrol Acetate* (Megestrol Acetate*) 400 Mg/10 Ml Susp, 400 MG PO BID, ML 06/30/18 Digoxin* (Digitek*) 250 Mcg Tablet, 0.25 MG PO DAILY, TAB 06/30/18 Benztropine Mesylate* (Benztropine Mesylate*) 1 Mg Tablet, 1 MG PO DAILY, TAB 03/13/18 Discontinued Reported Medications Zolpidem Tartrate* (Ambien*) 5 Mg Tablet, 5 MG PO QHS PRN for INSOMNIA, #30 TAB 03/13/18 Haloperidol* (Haldol*) 5 Mg Tab, 5 MG PO TID, TAB 03/13/18 Discontinued Scripts Docusate Sodium (Dok) 100 Mg Capsule, 100 MG PO Q12H for 30 Days, CAP Prov:PERLA NARANJO MD 03/19/18 Balsam [place] Oil (Venelex Ointment) 60 Gm Oint..gm., 1 APPLIC TOP BID, #1 Prov:PERLA NARANJO MD 03/19/18 Polyethylene Glycol* (Miralax*) 17 Gm Powd.pack, 17 GM PO BID for 30 Days Prov:PERLA NARANJO MD 03/19/18 Ondansetron Hcl* (Ondansetron Hcl* Inj) 4 Mg/2 Ml Vial, 4 MG IV Q6H PRN for NAUSEA AND/OR VOMITING for 30 Days, VIAL Prov:PERLA NARANJO MD 03/19/18 Tamsulosin Hcl* (Flomax*) 0.4 Mg Cap.er.24h, 0.4 MG PO HS for 30 Days, CAP Prov:PERLA NARANJO MD 03/19/18 Metoprolol Tartrate* (Lopressor*) 50 Mg Tab, 50 MG PO TID for 30 Days, TAB Prov:PERLA NARANJO MD 03/19/18 Apixaban* (Eliquis*) 5 Mg Tablet, 5 MG PO BID for 30 Days, TAB Prov:PERLA NARANJO MD 03/19/18 Medications Current Medications IV Flush (NS 3 ml) 3 ml PER PROTOCOL IV ; Start 06/30/18 at 15:00 Ondansetron HCl (Zofran Inj) 4 mg Q6H PRN IV NAUSEA/VOMITING; Start 06/30/18 at 15:00 Acetaminophen/ Hydrocodone Bitart ([place] (5/325)) 1 tab Q6H PRN PO .MOD PAIN 4- 6 Last administered on 06/30/18at 20:09; Admin Dose 1 TAB; Start 06/30/18 at 15:00 Morphine Sulfate (morphine) 2 mg Q4H PRN IV .SEVERE PAIN 7-10; Start 06/30/18 at 15:00 Docusate Sodium (Colace) 100 mg Q12H PRN PO .CONSTIPATION; Start 06/30/18 at 15:00 Zolpidem Tartrate (Ambien) 5 mg QHS PRN PO .INSOMNIA; Start 06/30/18 at 15:00 Acetaminophen (Tylenol Tab) 650 mg Q6H PRN PO PAIN LEVEL 1-3 OR FEVER Last administered on 06/30/18 17:25; Admin Dose 650 MG; Start 06/30/18 at 15:00 Ascorbic Acid (Vitamin C) 500 mg DAILY PO Last administered on 07/04/18 09:31; Admin Dose 500 MG; Start 07/01/18 at 09:00 Benztropine Mesylate (Cogentin) 1 mg DAILY PO Last administered on 07/04/18 09:32; Admin Dose 1 MG; Start 07/01/18 at 09:00 Digoxin (Digoxin) 0.25 mg DAILY@1300 PO Last administered on 07/04/18 14:09; Admin Dose 0.25 MG; Start 07/01/18 at 13:00 Diltiazem HCl (Cardizem) 30 mg TID PO Last administered on 07/04/18 14:11; Admin Dose 30 MG; Start 06/30/18 at 21:00 Lactobacillus Acidophilus/ Rhamnosus (Culturelle) 1 cap BID PO Last administere d on 07/04/18 09:31; Admin Dose 1 CAP; Start 06/30/18 at 21:00 Megestrol Acetate (Megace Susp) 400 mg BID PO Last administered on 07/04/18 09:31; Admin Dose 400 MG; Start 06/30/18 at 21:00 Mirtazapine (Remeron) 15 mg HS PO Last administered on 07/03/18 20:56; Admin Dose 15 MG; Start 06/30/18 at 21:00 Multivitamins Therapeutic (Theragran) 1 tab DAILY PO Last administered on 07/04/18 09:31; Admin Dose 1 TAB; Start 07/01/18 at 09:00 Pantoprazole (Protonix Tab) 40 mg DAILY PO Last administered on 07/04/18 09:31; Admin Dose 40 MG; Start 07/01/18 at 09:00 Zinc Sulfate (Zinc Sulfate) 220 mg DAILY PO Last administered on 07/04/18 09:31; Admin Dose 220 MG; Start 07/01/18 at 09:00 Enoxaparin Sodium (Lovenox) 40 mg DAILY SC Last administered on 07/04/18 10:07; Admin Dose 40 MG; Start 07/01/18 at 09:00 Linezolid 300 ml @ 300 mls/hr Q12 IVPB Last administered on 07/04/18 10:32; Admin Dose 300 MLS/HR; Start 07/02/18 at 12:00 Meropenem/Sodium Chloride 50 ml @ 100 mls/hr Q12 IVPB Last administered on 07/04/18 09:30; Admin Dose 100 MLS/HR; Start 07/02/18 at 11:30 Collagenase (Santyl) 1 applic BID TOP Last administered on 07/04/18 15:21; Admin Dose 1 APPLIC; Start 07/04/18 at 14:30 Allergies: Coded Allergies: Penicillins (Verified Allergy, Unknown, 06/30/18) Past Surgical History reviewed Social History reviewed Alcohol Use: rarely Smoking Status: Unknown if ever smoked Drug Use: none ANDREA NOEL NP July 04, 2018 15:38 JAMES BROWN July 05, 2018 06:43
--- NOTE | 2018-07-04 16:17 | PN ---
Date/Time of Note Date/Time of Note DATE: 07/04/18 TIME: 16:14 Assessment/Plan VTE Prophylaxis Risk score (from Nsg)>0 risk: 6 SCD applied (from Nsg): Yes Pharmacological prophylaxis: heparin Lines/Catheters IV Catheter Type (from Nrsg): Saline Lock Urinary Cath still in place: Yes Reason Cath still needed: urinary retention Assessment/Plan Hospital Course EXAM: Lethargic Responsive to noxious stimluil RRR CTAB Soft nt nd A/P: 72 yo male with h/o A FIb, nursning home resident with likely dementia who presents with sepsis and MRSA bacteremia MRSA bactermia: - Persistent. Echo pending - Abx per ID Encephelopathy: - Unclear chornicity. CT head concerning for hydrocephalus. Management per neurology A Fib Result Diagram: 07/04/1851307/04/1814 Results 24hrs Laboratory Tests Test 07/04/18 05:13 07/04/18 05:14 Digoxin Level 0.8 L White Blood Count 14.1 H Red Blood Count 2.96 L Hemoglobin 8.8 L Hematocrit 27.6 L Mean Corpuscular Volume 93.2 Mean Corpuscular Hemoglobin 29.7 Mean Corpuscular Hemoglobin Concent 31.9 L Red Cell Distribution Width 14.7 H Platelet Count 244 Mean Platelet Volume 10.1 Immature Granulocytes % 2.200 H Neutrophils % 82.0 H Lymphocytes % 9.9 L Monocytes % 5.2 Eosinophils % 0.4 Basophils % 0.3 Nucleated Red Blood Cells % 0.0 Immature Granulocytes # 0.310 H Neutrophils # 11.6 H Lymphocytes # 1.4 Monocytes # 0.7 Eosinophils # 0.1 Basophils # 0.0 Nucleated Red Blood Cells # 0.0 Sodium Level 143 Potassium Level 4.1 Chloride Level 117 H Carbon Dioxide Level 23 Anion Gap 3 L Blood Urea Nitrogen 14 Creatinine 0.49 L Est Glomerular Filtrat Rate mL/min > 60 Glucose Level 99 Calcium Level 7.6 L Magnesium Level 2.4 Total Bilirubin 0.4 Direct Bilirubin 0.00 Indirect Bilirubin 0.4 Aspartate Amino Transf (AST/SGOT) 25 Alanine Aminotransferase (ALT/SGPT) 31 Alkaline Phosphatase 82 Total Protein 4.8 L Albumin 2.0 L Globulin 2.80 Albumin/Globulin Ratio 0.71 Thyroid Stimulating Hormone (TSH) 1.730 Free Thyroxine 1.98 Subjective 24 Hr Interval Summary Free Text/Dictation Remains encephelophatic BC positive No distress Exam/Review of Systems Exam Vitals Vital Signs Date Temp Pulse Resp B/P (MAP) Pulse Ox O2 O2 Flow FiO2 Time Delivery Rate 07/04/18 97.7 103 20 96/56 (69) 96 Nasal 15:05 Cannula 07/04/18 2.0 08:00 Intake and Output 07/03/18 07/03/18 07/04/18 1515:00 23:00 07:00 IntakeIntake Total 1250 ml 400 ml OutputOutput Total 650 ml 700 ml BalanceBalance 600 ml -300 ml Results Results 24hrs Laboratory Tests Test 07/04/18 05:13 07/04/18 05:14 Digoxin Level 0.8 L White Blood Count 14.1 H Red Blood Count 2.96 L Hemoglobin 8.8 L Hematocrit 27.6 L Mean Corpuscular Volume 93.2 Mean Corpuscular Hemoglobin 29.7 Mean Corpuscular Hemoglobin Concent 31.9 L Red Cell Distribution Width 14.7 H Platelet Count 244 Mean Platelet Volume 10.1 Immature Granulocytes % 2.200 H Neutrophils % 82.0 H Lymphocytes % 9.9 L Monocytes % 5.2 Eosinophils % 0.4 Basophils % 0.3 Nucleated Red Blood Cells % 0.0 Immature Granulocytes # 0.310 H Neutrophils # 11.6 H Lymphocytes # 1.4 Monocytes # 0.7 Eosinophils # 0.1 Basophils # 0.0 Nucleated Red Blood Cells # 0.0 Sodium Level 143 Potassium Level 4.1 Chloride Level 117 H Carbon Dioxide Level 23 Anion Gap 3 L Blood Urea Nitrogen 14 Creatinine 0.49 L Est Glomerular Filtrat Rate mL/min > 60 Glucose Level 99 Calcium Level 7.6 L Magnesium Level 2.4 Total Bilirubin 0.4 Direct Bilirubin 0.00 Indirect Bilirubin 0.4 Aspartate Amino Transf (AST/SGOT) 25 Alanine Aminotransferase (ALT/SGPT) 31 Alkaline Phosphatase 82 Total Protein 4.8 L Albumin 2.0 L Globulin 2.80 Albumin/Globulin Ratio 0.71 Thyroid Stimulating Hormone (TSH) 1.730 Free Thyroxine 1.98 Medications Medication Current Medications IV Flush (NS 3 ml) 3 ml PER PROTOCOL IV ; Start 06/30/18 at 15:00 Ondansetron HCl (Zofran Inj) 4 mg Q6H PRN IV NAUSEA/VOMITING; Start 06/30/18 at 15:00 Acetaminophen/ Hydrocodone Bitart ([place] (5/325)) 1 tab Q6H PRN PO .MOD PAIN 4- 6 Last administered on 06/30/18 20:09; Admin Dose 1 TAB; Start 06/30/18 at 15:00 Morphine Sulfate (morphine) 2 mg Q4H PRN IV .SEVERE PAIN 7-10; Start 06/30/18 at 15:00 Docusate Sodium (Colace) 100 mg Q12H PRN PO .CONSTIPATION; Start 06/30/18 at 15:00 Zolpidem Tartrate (Ambien) 5 mg QHS PRN PO .INSOMNIA; Start 06/30/18 at 15:00 Acetaminophen (Tylenol Tab) 650 mg Q6H PRN PO PAIN LEVEL 1-3 OR FEVER Last administered on 06/30/18 17:25; Admin Dose 650 MG; Start 06/30/18 at 15:00 Ascorbic Acid (Vitamin C) 500 mg DAILY PO Last administered on 07/04/18 09:31; Admin Dose 500 MG; Start 07/01/18 at 09:00 Benztropine Mesylate (Cogentin) 1 mg DAILY PO Last administered on 07/04/18 09:32; Admin Dose 1 MG; Start 07/01/18 at 09:00 Digoxin (Digoxin) 0.25 mg DAILY@1300 PO Last administered on 07/04/18 14:09; Admin Dose 0.25 MG; Start 07/01/18 at 13:00 Diltiazem HCl (Cardizem) 30 mg TID PO Last administered on 07/04/18 14:11; Admin Dose 30 MG; Start 06/30/18 at 21:00 Lactobacillus Acidophilus/ Rhamnosus (Culturelle) 1 cap BID PO Last administered on 07/04/18 09:31; Admin Dose 1 CAP; Start 06/30/18 at 21:00 Megestrol Acetate (Megace Susp) 400 mg BID PO Last administered on 07/04/18 09:31; Admin Dose 400 MG; Start 06/30/18 at 21:00 Mirtazapine (Remeron) 15 mg HS PO Last administered on 07/03/18 20:56; Admin Dose 15 MG; Start 06/30/18 at 21:00 Multivitamins Therapeutic (Theragran) 1 tab DAILY PO Last administered on 07/04/18 09:31; Admin Dose 1 TAB; Start 07/01/18 at 09:00 Pantoprazole (Protonix Tab) 40 mg DAILY PO Last administered on 07/04/18 09:31; Admin Dose 40 MG; Start 07/01/18 at 09:00 Zinc Sulfate (Zinc Sulfate) 220 mg DAILY PO Last administered on 07/04/18 09:31; Admin Dose 220 MG; Start 07/01/18 at 09:00 Enoxaparin Sodium (Lovenox) 40 mg DAILY SC Last administered on 07/04/18 10:07; Admin Dose 40 MG; Start 07/01/18 at 09:00 Linezolid 300 ml @ 300 mls/hr Q12 IVPB Last administered on 07/04/18 10:32; Admin Dose 300 MLS/HR; Start 07/02/18 at 12:00 Meropenem/Sodium Chloride 50 ml @ 100 mls/hr Q12 IVPB Last administered on 07/04/18 09:30; Admin Dose 100 MLS/HR; Start 07/02/18 at 11:30 Collagenase (Santyl) 1 applic BID TOP Last administered on 07/04/18 15:21; Admin Dose 1 APPLIC; Start 07/04/18 at 14:30 DEBBIE GALLEGOS MD July 04, 2018 16:17
--- NOTE | 2018-07-04 19:02 | CONS ---
Assessment/Plan Assessment/Plan Hospital Course (Demo Recall) Atrial fibrillation Preserved EF Sepsis Encephalopathy -HR trend overall stable -Cont CCB as tolerated -Maintain k>4.0 and Mg>2.0 Consultation Date/Type/Reason Admit Date/Time June 30, 2018 at 08:59 Initial Consult Date 07/03/18 Type of Consult Cardiology Requesting Provider: DEBBIE GALLEGOS MD Date/Time of Note DATE: 07/04/18 TIME: 19:00 24 HR Interval Summary Subjective hx not possible: pt non-verbal Exam/Review of Systems Vital Signs Vitals Vital Signs Date Temp Pulse Resp B/P (MAP) Pulse Ox O2 O2 Flow FiO2 Time Delivery Rate 07/04/18 87 16:25 07/04/18 97.7 20 96/56 (69) 96 Nasal 15:05 Cannula 07/04/18 2.0 08:00 Intake and Output 07/03/18 07/03/18 07/04/18 1515:00 23:00 07:00 IntakeIntake Total 1250 ml 400 ml OutputOutput Total 650 ml 700 ml BalanceBalance 600 ml -300 ml Exam Exam awake, nad, non-verbal Respiratory: other (course bs, no wheeze) Cardiovascular: irregular rhythm (s1s2) Gastrointestinal: soft, non-tender, bowel sounds Extremities: edema Labs Result Diagram: 07/04/1814 07/04/18 0514 Results 24hrs Laboratory Tests Test 07/04/18 05:13 07/04/18 05:14 Digoxin Level 0.8 L White Blood Count 14.1 H Red Blood Count 2.96 L Hemoglobin 8.8 L Hematocrit 27.6 L Mean Corpuscular Volume 93.2 Mean Corpuscular Hemoglobin 29.7 Mean Corpuscular Hemoglobin Concent 31.9 L Red Cell Distribution Width 14.7 H Platelet Count 244 Mean Platelet Volume 10.1 Immature Granulocytes % 2.200 H Neutrophils % 82.0 H Lymphocytes % 9.9 L Monocytes % 5.2 Eosinophils % 0.4 Basophils % 0.3 Nucleated Red Blood Cells % 0.0 Immature Granulocytes # 0.310 H Neutrophils # 11.6 H Lymphocytes # 1.4 Monocytes # 0.7 Eosinophils # 0.1 Basophils # 0.0 Nucleated Red Blood Cells # 0.0 Sodium Level 143 Potassium Level 4.1 Chloride Level 117 H Carbon Dioxide Level 23 Anion Gap 3 L Blood Urea Nitrogen 14 Creatinine 0.49 L Est Glomerular Filtrat Rate mL/min > 60 Glucose Level 99 Calcium Level 7.6 L Magnesium Level 2.4 Total Bilirubin 0.4 Direct Bilirubin 0.00 Indirect Bilirubin 0.4 Aspartate Amino Transf (AST/SGOT) 25 Alanine Aminotransferase (ALT/SGPT) 31 Alkaline Phosphatase 82 Total Protein 4.8 L Albumin 2.0 L Globulin 2.80 Albumin/Globulin Ratio 0.71 Thyroid Stimulating Hormone (TSH) 1.730 Free Thyroxine 1.98 Medications Medications Current Medications IV Flush (NS 3 ml) 3 ml PER PROTOCOL IV ; Start 06/30/18 at 15:00 Ondansetron HCl (Zofran Inj) 4 mg Q6H PRN IV NAUSEA/VOMITING; Start 06/30/18 at 15:00 Acetaminophen/ Hydrocodone Bitart ([place] (5/325)) 1 tab Q6H PRN PO .MOD PAIN 4- 6 Last administered on 06/30/18at 20:09; Admin Dose 1 TAB; Start 06/30/18 at 15:00 Morphine Sulfate (morphine) 2 mg Q4H PRN IV .SEVERE PAIN 7-10; Start 06/30/18 at 15:00 Docusate Sodium (Colace) 100 mg Q12H PRN PO .CONSTIPATION; Start 06/30/18 at 15:00 Zolpidem Tartrate (Ambien) 5 mg QHS PRN PO .INSOMNIA; Start 06/30/18 at 15:00 Acetaminophen (Tylenol Tab) 650 mg Q6H PRN PO PAIN LEVEL 1-3 OR FEVER Last administered on 06/30/18at 17:25; Admin Dose 650 MG; Start 06/30/18 at 15:00 Ascorbic Acid (Vitamin C) 500 mg DAILY PO Last administered on 07/04/18at 09:31; Admin Dose 500 MG; Start 07/01/18 at 09:00 Benztropine Mesylate (Cogentin) 1 mg DAILY PO Last administered on 07/04/18at 09:32; Admin Dose 1 MG; Start 07/01/18 at 09:00 Digoxin (Digoxin) 0.25 mg DAILY@1300 PO Last administered on 07/04/18at 14:09; Admin Dose 0.25 MG; Start 07/01/18 at 13:00 Diltiazem HCl (Cardizem) 30 mg TID PO Last administered on 07/04/18 14:11; Admin Dose 30 MG; Start 06/30/18 at 21:00 Lactobacillus Acidophilus/ Rhamnosus (Culturelle) 1 cap BID PO Last administered on 07/04/18 09:31; Admin Dose 1 CAP; Start 06/30/18 at 21:00 Megestrol Acetate (Megace Susp) 400 mg BID PO Last administered on 07/04/18 09:31; Admin Dose 400 MG; Start 06/30/18 at 21:00 Mirtazapine (Remeron) 15 mg HS PO Last administered on 07/03/18 20:56; Admin Dose 15 MG; Start 06/30/18 at 21:00 Multivitamins Therapeutic (Theragran) 1 tab DAILY PO Last administered on 07/04/18 09:31; Admin Dose 1 TAB; Start 07/01/18 at 09:00 Pantoprazole (Protonix Tab) 40 mg DAILY PO Last administered on 07/04/18 09:31; Admin Dose 40 MG; Start 07/01/18 at 09:00 Zinc Sulfate (Zinc Sulfate) 220 mg DAILY PO Last administered on 07/04/18 09:31; Admin Dose 220 MG; Start 07/01/18 at 09:00 Enoxaparin Sodium (Lovenox) 40 mg DAILY SC Last administered on 07/04/18 10:07; Admin Dose 40 MG; Start 07/01/18 at 09:00 Linezolid 300 ml @ 300 mls/hr Q12 IVPB Last administered on 07/04/18 10:32; Admin Dose 300 MLS/HR; Start 07/02/18 at 12:00 Meropenem/Sodium Chloride 50 ml @ 100 mls/hr Q12 IVPB Last administered on 07/04/18 09:30; Admin Dose 100 MLS/HR; Start 07/02/18 at 11:30 Collagenase (Santyl) 1 applic BID TOP Last administered on 07/04/18 15:21; Admin Dose 1 APPLIC; Start 07/04/18 at 14:30 Aspirin (Aspirin) 81 mg DAILY PO ; Start 07/05/18 at 09:00 Charan Cottrell DO July 04, 2018 19:02
[2018-07-04] MEDS: MIRTAZAPINE 15 MG TAB PO SCH (21:31)
--- NOTE | 2018-07-04 21:45 | RADRPT ---
Echocardiogram Report Patient Name: LEXI JOHNSONPatient ID: [id number] : 108 (72y 7m)Study Date: 07/04/2018 8:08:41 AM Gender: MAccession #: [id number] Tech: Chiki Hope [facility] Location: 602 Ref.Physician: AIDA BRANDT Height(Cm): BSA: Weight(Kg): Quality: AdequateAccount #: Procedures: Echocardiographic Report: Transthoracic echocardiogram with complete 2D, M-Mode, and doppler examination. Indications: Endocarditis. Measurements: 2D/M Mode Doppler Measurement Value Normal Range Measurement Value Normal Range LVIDd 2D 3.5 [ 4.2 - 5.8 ] cm AV Peak Alex 1.4 [ 100.0 - 170.0 ] cm/sec LVIDs 2D 2.2 [ 2.5 - 4.0 ] cm AV Peak PG 8.0 [ 2.0 - 9.0 ] mmHg LVPWd 2D 1.3 [ 0.6 - 1.0 ] cm AI Peak PG 47.0 mmHg IVSd 2D 1.3 [ 0.6 - 1.0 ] cm AI Peak Alex 3.4 cm/sec AoR Diam 2D 2.7 [ 2.6 - 3.4 ] cm AI PHT 379.0 msec EDV 2D 51.2 [ 62.0 - 150.0 ] ml LVOT Peak Alex 1.0 [ 70.0 - 110.0 ] cm/sec ESV 2D 15.8 [ 21.0 - 61.0 ] ml LVOT Peak PG 4.0 [ 2.0 - 6.0 ] mmHg EF 2D 69.1 [ 52.0 - 72.0 ] percent TR Peak Alex 3.0 [ 100.0 - 280.0 ] cm/sec LA Dimen 2D 3.5 [ 3.0 - 4.0 ] cm TR Peak PG 37.0 mmHg RVSP 47.0 [ 10.0 - 36.0 ] mmHg RA Pressure 10.0 mmHg Findings: Left Ventricle: Normal left ventricular systolic function. Normal left ventricular cavity size. Mild concentric left ventricular hypertrophy. Ejection fraction is visually estimated at 65 %. Abnormal Diastolic Function. Right Ventricle: Normal right ventricular size. Normal right ventricular systolic function. Left Atrium: The left atrium is normal in size. Right Atrium: The right atrium is normal in size. Mitral Valve: Mitral valve leaflets appear mildly thickened. Mild mitral annular calcification. Moderate mitral valve regurgitation. Aortic Valve: No hemodynamically significant aortic stenosis by doppler. Aortic cusps appear mildly calcified. Moderate aortic valve regurgitation. Tricuspid Valve: Normal appearance of the tricuspid valve. Estimated peak PA systolic pressure 47 mmHg. There is mild to moderate tricuspid regurgitation. Pulmonic Valve: Normal pulmonic valve appearance. Pericardium: Normal pericardium with no significant pericardial effusion. Aorta: Normal aortic root. IVC: Normal size and normal respiratory collapse consistent with normal right atrial pressure. Conclusions: Normal left ventricular systolic function. Normal left ventricular cavity size. Mild concentric left ventricular hypertrophy. Ejection fraction is visually estimated at 65 %. Abnormal Diastolic Function. Normal right ventricular size. Normal right ventricular systolic function. The left atrium is normal in size. The right atrium is normal in size. No hemodynamically significant aortic stenosis by doppler. Moderate aortic valve regurgitation. Moderate mitral valve regurgitation. Estimated peak PA systolic pressure 47 mmHg. There is mild to moderate tricuspid regurgitation. Normal pericardium with no significant pericardial effusion. Electronically Signed By: Chraan Cottrell 2018-07-04 21:45:26 PDT
[2018-07-05] VITALS (8 sets, daily range): BP systolic 91–103; BP diastolic 54–61; PULSE 73–111; RESP 19–22
[2018-07-05] MEDS: LINEZOLID 600 MG/D5W (PMX) 300 ML IVPB SCH ×2 (09:16→21:16)
[2018-07-05] MEDS: BENZTROPINE 1 MG TAB PO SCH (09:17)
[2018-07-05] MEDS: COLLAGENASE 5 GM (UD JAR) TOP SCH ×2 (09:17→21:17)
[2018-07-05] MEDS: PANTOPRAZOLE (EC) 40 MG TAB PO SCH (09:17)
[2018-07-05] MEDS: MULTIVITAMINS THERAPEUTIC TAB PO SCH (09:17)
[2018-07-05] MEDS: MEROPENEM 1 GM/50ML(PMX) 50 ML IVPB SCH ×2 (09:17→21:16)
[2018-07-05] MEDS: ASCORBIC ACID 500 MG TAB PO SCH (09:17)
[2018-07-05] MEDS: FOLIC ACID 1 MG TAB PO SCH (09:17)
[2018-07-05] MEDS: MEGESTROL (40 MG/ML) 10ML CUP PO SCH ×2 (09:17→21:17)
[2018-07-05] MEDS: DILTIAZEM 30 MG TAB PO SCH ×3 (09:18→21:00)
[2018-07-05] MEDS: ASPIRIN 81 MG TAB PO SCH (09:18)
[2018-07-05] MEDS: LACTOBACILLUS RHAMNOSUS CAP PO SCH ×2 (09:18→21:17)
[2018-07-05] MEDS: BALSAM PERU/CASTOR OIL 60 GM TUBE TOP SCH ×2 (09:19→21:17)
[2018-07-05] MEDS: ENOXAPARIN 40 MG/0.4 ML SYG SC SCH (09:37)
[2018-07-05] MEDS: ZINC SULFATE 220 MG CAP PO SCH (09:38)
--- NOTE | 2018-07-05 11:51 | CONS ---
Assessment/Plan Assessment/Plan Hospital Course 72 yo M with multiple comorbidities who presents for evaluation of altered mental status. A HCT was obtained and notable for ventriculomegaly and degenerative changes... for which neurology is consulted. The ventriculomegaly is likely chronic, and without acute clinical significance.. LDL 34 P: Cont ASA for secondary stroke prevention; LDL is at goal Recommend repeat neuroimaging for surveillance, as an outpatient [place] as able Limit sedating medications where possible PT/OT/ST as necessary Other management per primary Will follow clinically Consultation Date/Type/Reason Admit Date/Time June 30, 2018 at 08:59 Type of Consult Neurology Reason for Consultation hydrocephalus Requesting Provider: DEBBIE GALLEGOS MD Date/Time of Note DATE: 07/05/18 TIME: 11:50 24 HR Interval Summary Free Text/Dictation Continues acute care. Exam Vital Signs Vitals Vital Signs Date Temp Pulse Resp B/P (MAP) Pulse Ox O2 O2 Flow FiO2 Time Delivery Rate 07/05/18 98.7 94 19 91/61 (71) 98 11:21 07/04/18 Nasal 2.0 22:00 Cannula Intake and Output 07/04/18 07/04/18 07/05/18 1515:00 23:00 07:00 IntakeIntake Total 350 ml 350 ml 0 ml OutputOutput Total 850 ml BalanceBalance 350 ml 350 ml -850 ml Exam PE: Gen Appearance: No Apparent Distress HEENT: Normocephalic; nasal cannula Cardiovascular: Regular rate Abdomen: Soft Extremities: Dry NE: The patient was lethargic, and opens eyes to voice. Sparsely verbal. He did not follow any commands. Cranial nerve examination was limited by mental status. Pupils were equal and reactive to light. There was no afferent pupillary defect. Funduscopic examination was limited. Face was grossly symmetric, w/ present corneal and cough reflexes. Tone was normal. Muscle bulk was reduced. I did not see fasciculations. The patient withdrew his extremities to noxious stimuli. Coordination and gait testing was limited by mental status. Arm and leg reflexes were within normal limits and symmetric. Martinez's sign was absent. Plantar responses were flexor. ANDREA NOEL NP July 05, 2018 11:51
[2018-07-05] MEDS: DIGOXIN 0.25 MG TAB PO SCH (12:27)
--- NOTE | 2018-07-05 15:28 | CONS ---
Assessment/Plan Assessment/Plan Hospital Course (Demo Recall) Patient is lethargic looks comfortable no fevers overnight Microbiology: Blood cultures since admission grew MRSA, urine culture grew VRE E. coli ESBL and Enterobacter cloaca Antimicrobials: Zyvox, meropenem Physical examination: Fragile elderly man who is in no distress. Head atraumatic normocephalic neck is supple chest rise symmetrical breath sounds diminished bases. Heart: S1-S2. Abdomen soft bowel sounds present. Extremities without cyanosis Assessment: 1. Persistent MRSA bacteremia on admission likely secondary to line that was discontinued, rule out vegetations 2. Polymicrobial UTI 3. Acute on chronic encephalopathy 4. Cachexia 5. Atrial fibrillation status post RVR Plan: Patient is clinically stable, cardiology on case, continue antibiotics consider 2D echo if it has not been done, follow repeat blood cultures Consultation Date/Type/Reason Admit Date/Time June 30, 2018 at 08:59 Initial Consult Date 07/03/18 Type of Consult id Requesting Provider: DEBBIE GALLEGOS MD Date/Time of Note DATE: 07/05/18 TIME: 15:27 Exam/Review of Systems Exam Vitals Vital Signs Date Temp Pulse Resp B/P (MAP) Pulse Ox O2 O2 Flow FiO2 Time Delivery Rate 07/05/18 98.1 78 19 96/58 (71) 98 15:10 07/05/18 Nasal 2.0 08:00 Cannula Intake and Output 07/04/18 07/04/18 07/05/18 1515:00 23:00 07:00 IntakeIntake Total 350 ml 350 ml 0 ml OutputOutput Total 850 ml BalanceBalance 350 ml 350 ml -850 ml Results Result Diagram: 07/04/18 0514 07/04/18 0514 Results 24hrs Laboratory Tests Test 07/05/18 11:21 Triglycerides Level 184 H Cholesterol Level 81 L LDL Cholesterol, Calculated 34 HDL Cholesterol 10 L Cholesterol/HDL Ratio 8.1 Medications Medication Current Medications IV Flush (NS 3 ml) 3 ml PER PROTOCOL IV ; Start 06/30/18 at 15:00 Ondansetron HCl (Zofran Inj) 4 mg Q6H PRN IV NAUSEA/VOMITING; Start 06/30/18 at 15:00 Acetaminophen/ Hydrocodone Bitart ([place] (5/325)) 1 tab Q6H PRN PO .MOD PAIN 4- 6 Last administered on 06/30/18at 20:09; Admin Dose 1 TAB; Start 06/30/18 at 15:00 Morphine Sulfate (morphine) 2 mg Q4H PRN IV .SEVERE PAIN 7-10; Start 06/30/18 at 15:00 Docusate Sodium (Colace) 100 mg Q12H PRN PO .CONSTIPATION; Start 06/30/18 at 15:00 Zolpidem Tartrate (Ambien) 5 mg QHS PRN PO .INSOMNIA; Start 06/30/18 at 15:00 Acetaminophen (Tylenol Tab) 650 mg Q6H PRN PO PAIN LEVEL 1-3 OR FEVER Last administered on 06/30/18 17:25; Admin Dose 650 MG; Start 06/30/18 at 15:00 Ascorbic Acid (Vitamin C) 500 mg DAILY PO Last administered on 07/05/18 09:17; Admin Dose 500 MG; Start 07/01/18 at 09:00 Benztropine Mesylate (Cogentin) 1 mg DAILY PO Last administered on 07/05/18 09:17; Admin Dose 1 MG; Start 07/01/18 at 09:00 Digoxin (Digoxin) 0.25 mg DAILY@1300 PO Last administered on 07/05/18 12:27; Admin Dose 0.25 MG; Start 07/01/18 at 13:00 Diltiazem HCl (Cardizem) 30 mg TID PO Last administered on 07/05/18 12:26; Admin Dose 30 MG; Start 06/30/18 at 21:00 Lactobacillus Acidophilus/ Rhamnosus (Culturelle) 1 cap BID PO Last administered on 07/05/18 09:18; Admin Dose 1 CAP; Start 06/30/18 at 21:00 Megestrol Acetate (Megace Susp) 400 mg BID PO Last administered on 07/05/18 09:17; Admin Dose 400 MG; Start 06/30/18 at 21:00 Mirtazapine (Remeron) 15 mg HS PO Last administered on 07/04/18 21:31; Admin Dose 15 MG; Start 06/30/18 at 21:00 Multivitamins Therapeutic (Theragran) 1 tab DAILY PO Last administered on 07/05/18 09:17; Admin Dose 1 TAB; Start 07/01/18 at 09:00 Pantoprazole (Protonix Tab) 40 mg DAILY PO Last administered on 07/05/18 09:17; Admin Dose 40 MG; Start 07/01/18 at 09:00 Zinc Sulfate (Zinc Sulfate) 220 mg DAILY PO Last administered on 07/05/18 09:38; Admin Dose 220 MG; Start 07/01/18 at 09:00 Enoxaparin Sodium (Lovenox) 40 mg DAILY SC Last administered on 07/05/18 09:37; Admin Dose 40 MG; Start 07/01/18 at 09:00 Linezolid 300 ml @ 300 mls/hr Q12 IVPB Last administered on 07/05/18 09:16; Admin Dose 300 MLS/HR; Start 07/02/18 at 12:00 Meropenem/Sodium Chloride 50 ml @ 100 mls/hr Q12 IVPB Last administered on 07/05/18 09:17; Admin Dose 100 MLS/HR; Start 07/02/18 at 11:30 Collagenase (Santyl) 1 applic BID TOP Last administered on 07/05/18 09:17; Admin Dose 1 APPLIC; Start 07/04/18 at 14:30 Aspirin (Aspirin) 81 mg DAILY PO Last administered on 07/05/18 09:18; Admin Dose 81 MG; Start 07/05/18 at 09:00 Folic Acid (Folic Acid) 1 mg DAILY PO Last administered on 07/05/18 09:17; Admin Dose 1 MG; Start 07/05/18 at 09:00 SANDER WILL NP July 05, 2018 15:28
--- NOTE | 2018-07-05 16:05 | PN ---
Date/Time of Note Date/Time of Note DATE: 07/05/18 TIME: 16:01 Assessment/Plan VTE Prophylaxis Risk score (from Nsg)>0 risk: 6 SCD applied (from Nsg): Yes Pharmacological prophylaxis: heparin Lines/Catheters IV Catheter Type (from Nrsg): Saline Lock Urinary Cath still in place: Yes Reason Cath still needed: urinary retention Assessment/Plan Hospital Course EXAM: Lethargic Responsive to noxious stimluil RRR CTAB Soft nt nd A/P: 72 yo male with h/o A FIb, nursning home resident with likely dementia who presents with sepsis and MRSA bacteremia MRSA bactermia: - Persistent. Echo shows no vegetation - Abx per ID - Surveillance cultures until negative Encephelopathy: - Unclear chornicity. CT head concerning for hydrocephalus. Management per neurology A Fib Result Diagram: 07/04/1851307/04/18513 Results 24hrs Laboratory Tests Test 07/05/18 11:21 Triglycerides Level 184 H Cholesterol Level 81 L LDL Cholesterol, Calculated 34 HDL Cholesterol 10 L Cholesterol/HDL Ratio 8.1 Subjective 24 Hr Interval Summary Free Text/Dictation No change to clinical status Continues iV abx Exam/Review of Systems Exam Vitals Vital Signs Date Temp Pulse Resp B/P (MAP) Pulse Ox O2 O2 Flow FiO2 Time Delivery Rate 07/05/18 98.1 78 19 96/58 (71) 98 15:10 07/05/18 Nasal 2.0 08:00 Cannula Intake and Output 07/04/18 07/04/18 07/05/18 1515:00 23:00 07:00 IntakeIntake Total 350 ml 350 ml 0 ml OutputOutput Total 850 ml BalanceBalance 350 ml 350 ml -850 ml Results Results 24hrs Laboratory Tests Test 07/05/18 11:21 Triglycerides Level 184 H Cholesterol Level 81 L LDL Cholesterol, Calculated 34 HDL Cholesterol 10 L Cholesterol/HDL Ratio 8.1 Medications Medication Current Medications IV Flush (NS 3 ml) 3 ml PER PROTOCOL IV ; Start 06/30/18 at 15:00 Ondansetron HCl (Zofran Inj) 4 mg Q6H PRN IV NAUSEA/VOMITING; Start 06/30/18 at 15:00 Acetaminophen/ Hydrocodone Bitart ([place] (5/325)) 1 tab Q6H PRN PO .MOD PAIN 4- 6 Last administered on 06/30/18at 20:09; Admin Dose 1 TAB; Start 06/30/18 at 15:00 Morphine Sulfate (morphine) 2 mg Q4H PRN IV .SEVERE PAIN 7-10; Start 06/30/18 at 15:00 Docusate Sodium (Colace) 100 mg Q12H PRN PO .CONSTIPATION; Start 06/30/18 at 15:00 Zolpidem Tartrate (Ambien) 5 mg QHS PRN PO .INSOMNIA; Start 06/30/18 at 15:00 Acetaminophen (Tylenol Tab) 650 mg Q6H PRN PO PAIN LEVEL 1-3 OR FEVER Last administered on 06/30/18 17:25; Admin Dose 650 MG; Start 06/30/18 at 15:00 Ascorbic Acid (Vitamin C) 500 mg DAILY PO Last administered on 07/05/18 09:17; Admin Dose 500 MG; Start 07/01/18 at 09:00 Benztropine Mesylate (Cogentin) 1 mg DAILY PO Last administered on 07/05/18 09:17; Admin Dose 1 MG; Start 07/01/18 at 09:00 Digoxin (Digoxin) 0.25 mg DAILY@1300 PO Last administered on 07/05/18 12:27; Admin Dose 0.25 MG; Start 07/01/18 at 13:00 Diltiazem HCl (Cardizem) 30 mg TID PO Last administered on 07/05/18 12:26; Admin Dose 30 MG; Start 06/30/18 at 21:00 Lactobacillus Acidophilus/ Rhamnosus (Culturelle) 1 cap BID PO Last administered on 07/05/18 09:18; Admin Dose 1 CAP; Start 06/30/18 at 21:00 Megestrol Acetate (Megace Susp) 400 mg BID PO Last administered on 07/05/18 09:17; Admin Dose 400 MG; Start 06/30/18 at 21:00 Mirtazapine (Remeron) 15 mg HS PO Last administered on 07/04/18 21:31; Admin Dose 15 MG; Start 06/30/18 at 21:00 Multivitamins Therapeutic (Theragran) 1 tab DAILY PO Last administered on 07/05/18 09:17; Admin Dose 1 TAB; Start 07/01/18 at 09:00 Pantoprazole (Protonix Tab) 40 mg DAILY PO Last administered on 07/05/18 09:17; Admin Dose 40 MG; Start 07/01/18 at 09:00 Zinc Sulfate (Zinc Sulfate) 220 mg DAILY PO Last administered on 07/05/18 09:38; Admin Dose 220 MG; Start 07/01/18 at 09:00 Enoxaparin Sodium (Lovenox) 40 mg DAILY SC Last administered on 07/05/18 09:37; Admin Dose 40 MG; Start 07/01/18 at 09:00 Linezolid 300 ml @ 300 mls/hr Q12 IVPB Last administered on 07/05/18 09:16; Admin Dose 300 MLS/HR; Start 07/02/18 at 12:00 Meropenem/Sodium Chloride 50 ml @ 100 mls/hr Q12 IVPB Last administered on 07/05/18 09:17; Admin Dose 100 MLS/HR; Start 07/02/18 at 11:30 Collagenase (Santyl) 1 applic BID TOP Last administered on 07/05/18 09:17; Admin Dose 1 APPLIC; Start 07/04/18 at 14:30 Aspirin (Aspirin) 81 mg DAILY PO Last administered on 07/05/18 09:18; Admin Dose 81 MG; Start 07/05/18 at 09:00 Folic Acid (Folic Acid) 1 mg DAILY PO Last administered on 07/05/18 09:17; Admin Dose 1 MG; Start 07/05/18 at 09:00 DEBBIE GALLEGOS MD July 05, 2018 16:05
--- NOTE | 2018-07-05 17:30 | CONS ---
Assessment/Plan Assessment/Plan Hospital Course (Demo Recall) Atrial fibrillation Preserved EF Sepsis Encephalopathy-improved -Heart rate trend overall remained stable -Continue Cardizem as tolerated -Maintain k>4.0 and Mg>2.0 Consultation Date/Type/Reason Admit Date/Time June 30, 2018 at 08:59 Initial Consult Date 07/03/18 Type of Consult Cardiology Requesting Provider: DEBBIE GALLEGOS MD Date/Time of Note DATE: 07/05/18 TIME: 17:29 24 HR Interval Summary Free Text/Dictation Patient seen and examined. Denies shortness of breath, palpitations Exam/Review of Systems Vital Signs Vitals Vital Signs Date Temp Pulse Resp B/P (MAP) Pulse Ox O2 O2 Flow FiO2 Time Delivery Rate 07/05/18 89 16:22 07/05/18 98.1 19 96/58 (71) 98 15:10 07/05/18 Nasal 2.0 08:00 Cannula Intake and Output 07/04/18 07/04/18 07/05/18 1414:59 22:59 06:59 IntakeIntake Total 350 ml 350 ml 0 ml OutputOutput Total 850 ml BalanceBalance 350 ml 350 ml -850 ml Exam Constitutional: alert (Following commands, no apparent distress) Respiratory: other (Coarse breath sounds bilaterally, no wheezing) Cardiovascular: irregular rhythm (S1-S2 heard) Gastrointestinal: soft, non-tender, bowel sounds Extremities: edema (Trace) Labs Result Diagram: 07/04/18 0514 07/04/1814 Results 24hrs Laboratory Tests Test 07/05/18 11:21 Triglycerides Level 184 H Cholesterol Level 81 L LDL Cholesterol, Calculated 34 HDL Cholesterol 10 L Cholesterol/HDL Ratio 8.1 Medications Medications Current Medications IV Flush (NS 3 ml) 3 ml PER PROTOCOL IV ; Start 06/30/18 at 15:00 Ondansetron HCl (Zofran Inj) 4 mg Q6H PRN IV NAUSEA/VOMITING; Start 06/30/18 at 15:00 Acetaminophen/ Hydrocodone Bitart ([place] (5/325)) 1 tab Q6H PRN PO .MOD PAIN 4- 6 Last administered on 06/30/18at 20:09; Admin Dose 1 TAB; Start 06/30/18 at 15:00 Morphine Sulfate (morphine) 2 mg Q4H PRN IV .SEVERE PAIN 7-10; Start 06/30/18 at 15:00 Docusate Sodium (Colace) 100 mg Q12H PRN PO .CONSTIPATION; Start 06/30/18 at 15:00 Zolpidem Tartrate (Ambien) 5 mg QHS PRN PO .INSOMNIA; Start 06/30/18 at 15:00 Acetaminophen (Tylenol Tab) 650 mg Q6H PRN PO PAIN LEVEL 1-3 OR FEVER Last administered on 06/30/18 17:25; Admin Dose 650 MG; Start 06/30/18 at 15:00 Ascorbic Acid (Vitamin C) 500 mg DAILY PO Last administered on 07/05/18 09:17; Admin Dose 500 MG; Start 07/01/18 at 09:00 Benztropine Mesylate (Cogentin) 1 mg DAILY PO Last administered on 07/05/18 09:17; Admin Dose 1 MG; Start 07/01/18 at 09:00 Digoxin (Digoxin) 0.25 mg DAILY@1300 PO Last administered on 07/05/18 12:27; Admin Dose 0.25 MG; Start 07/01/18 at 13:00 Diltiazem HCl (Cardizem) 30 mg TID PO Last administered on 07/05/18 12:26; Admin Dose 30 MG; Start 06/30/18 at 21:00 Lactobacillus Acidophilus/ Rhamnosus (Culturelle) 1 cap BID PO Last administered on 07/05/18 09:18; Admin Dose 1 CAP; Start 06/30/18 at 21:00 Megestrol Acetate (Megace Susp) 400 mg BID PO Last administered on 07/05/18 09:17; Admin Dose 400 MG; Start 06/30/18 at 21:00 Mirtazapine (Remeron) 15 mg HS PO Last administered on 07/04/18 21:31; Admin Dose 15 MG; Start 06/30/18 at 21:00 Multivitamins Therapeutic (Theragran) 1 tab DAILY PO Last administered on 07/05 09:17; Admin Dose 1 TAB; Start 07/01/18 at 09:00 Pantoprazole (Protonix Tab) 40 mg DAILY PO Last administered on 07/05/18 09:17; Admin Dose 40 MG; Start 07/01/18 at 09:00 Zinc Sulfate (Zinc Sulfate) 220 mg DAILY PO Last administered on 07/05/18 09:38; Admin Dose 220 MG; Start 07/01/18 at 09:00 Enoxaparin Sodium (Lovenox) 40 mg DAILY SC Last administered on 07/05/18 09:37; Admin Dose 40 MG; Start 07/01/18 at 09:00 Linezolid 300 ml @ 300 mls/hr Q12 IVPB Last administered on 07/05/18 09:16; Admin Dose 300 MLS/HR; Start 07/02/18 at 12:00 Meropenem/Sodium Chloride 50 ml @ 100 mls/hr Q12 IVPB Last administered on 07/05/18 09:17; Admin Dose 100 MLS/HR; Start 07/02/18 at 11:30 Collagenase (Santyl) 1 applic BID TOP Last administered on 07/05/18 09:17; Admin Dose 1 APPLIC; Start 07/04/18 at 14:30 Aspirin (Aspirin) 81 mg DAILY PO Last administered on 07/05/18 09:18; Admin Dose 81 MG; Start 07/05/18 at 09:00 Folic Acid (Folic Acid) 1 mg DAILY PO Last administered on 07/05/18 09:17; Admin Dose 1 MG; Start 07/05/18 at 09:00 Charan Cottrell DO July 05, 2018 17:30
[2018-07-05] MEDS: MIRTAZAPINE 15 MG TAB PO SCH (21:17)
[2018-07-06] VITALS (13 sets, daily range): BP systolic 83–134; BP diastolic 46–67; PULSE 47–135; RESP 18–20
[2018-07-06] MEDS: BENZTROPINE 1 MG TAB PO SCH (08:38)
[2018-07-06] MEDS: PANTOPRAZOLE (EC) 40 MG TAB PO SCH (08:38)
[2018-07-06] MEDS: MEROPENEM 1 GM/50ML(PMX) 50 ML IVPB SCH ×2 (08:38→20:28)
[2018-07-06] MEDS: MULTIVITAMINS THERAPEUTIC TAB PO SCH (08:38)
[2018-07-06] MEDS: ASCORBIC ACID 500 MG TAB PO SCH (08:38)
[2018-07-06] MEDS: FOLIC ACID 1 MG TAB PO SCH (08:38)
[2018-07-06] MEDS: COLLAGENASE 5 GM (UD JAR) TOP SCH ×2 (08:38→20:31)
[2018-07-06] MEDS: LINEZOLID 600 MG/D5W (PMX) 300 ML IVPB SCH ×2 (08:38→20:28)
[2018-07-06] MEDS: MEGESTROL (40 MG/ML) 10ML CUP PO SCH ×2 (08:38→20:30)
[2018-07-06] MEDS: ASPIRIN 81 MG TAB PO SCH (08:38)
[2018-07-06] MEDS: LACTOBACILLUS RHAMNOSUS CAP PO SCH ×2 (08:38→20:30)
[2018-07-06] MEDS: BALSAM PERU/CASTOR OIL 60 GM TUBE TOP SCH ×2 (08:39→20:31)
[2018-07-06] MEDS: ZINC SULFATE 220 MG CAP PO SCH (08:39)
[2018-07-06] MEDS: DILTIAZEM 30 MG TAB PO SCH ×3 (08:41→20:30)
[2018-07-06] MEDS: ENOXAPARIN 40 MG/0.4 ML SYG SC SCH (09:12)
--- NOTE | 2018-07-06 12:32 | CONS ---
Assessment/Plan Assessment/Plan Hospital Course (Demo Recall) Atrial fibrillation Preserved EF Sepsis Encephalopathy-improved -Heart rate trend has been labile but improved this morning -Blood pressure trend also labile but improved on repeat reading. Continue Cardizem as tolerated -Maintain k>4.0 and Mg>2.0 Consultation Date/Type/Reason Admit Date/Time June 30, 2018 at 08:59 Initial Consult Date 07/03/18 Type of Consult Cardiology Requesting Provider: DEBBIE GALLEGOS MD Date/Time of Note DATE: 07/06/18 TIME: 12:31 24 HR Interval Summary Free Text/Dictation Denies shortness of breath, chest pain, dizziness Exam/Review of Systems Vital Signs Vitals Vital Signs Date Temp Pulse Resp B/P (MAP) Pulse Ox O2 O2 Flow FiO2 Time Delivery Rate 07/06/18 107 12:01 07/06/18 98.3 20 109/58 99 11:48 (75) 07/06/18 Nasal 2.0 08:59 Cannula Intake and Output 07/05/18 07/05/18 07/06/18 1515:00 23:00 07:00 IntakeIntake Total 1100 ml 100 ml OutputOutput Total 850 ml 1100 ml BalanceBalance 250 ml -1000 ml Exam Constitutional: alert (Follows commands, able to answer basic questions) Respiratory: other (Coarse breath sounds bilaterally, no wheezing) Cardiovascular: irregular rhythm (S1-S2 heard) Gastrointestinal: soft, non-tender, bowel sounds Extremities: edema (Trace) Labs Result Diagram: 07/04/1814 07/04/18513 Medications Medications Current Medications IV Flush (NS 3 ml) 3 ml PER PROTOCOL IV ; Start 06/30/18 at 15:00 Ondansetron HCl (Zofran Inj) 4 mg Q6H PRN IV NAUSEA/VOMITING; Start 06/30/18 at 15:00 Acetaminophen/ Hydrocodone Bitart ([place] (5/325)) 1 tab Q6H PRN PO .MOD PAIN 4- 6 Last administered on 06/30/18at 20:09; Admin Dose 1 TAB; Start 06/30/18 at 15:00 Morphine Sulfate (morphine) 2 mg Q4H PRN IV .SEVERE PAIN 7-10; Start 06/30/18 at 15:00 Docusate Sodium (Colace) 100 mg Q12H PRN PO .CONSTIPATION; Start 06/30/18 at 15:00 Zolpidem Tartrate (Ambien) 5 mg QHS PRN PO .INSOMNIA; Start 06/30/18 at 15:00 Acetaminophen (Tylenol Tab) 650 mg Q6H PRN PO PAIN LEVEL 1-3 OR FEVER Last administered on 06/30/18 17:25; Admin Dose 650 MG; Start 06/30/18 at 15:00 Ascorbic Acid (Vitamin C) 500 mg DAILY PO Last administered on 07/06/18 08:38; Admin Dose 500 MG; Start 07/01/18 at 09:00 Benztropine Mesylate (Cogentin) 1 mg DAILY PO Last administered on 07/06/18 08:38; Admin Dose 1 MG; Start 07/01/18 at 09:00 Digoxin (Digoxin) 0.25 mg DAILY@1300 PO Last administered on 07/05/18 12:27; Admin Dose 0.25 MG; Start 07/01/18 at 13:00 Diltiazem HCl (Cardizem) 30 mg TID PO Last administered on 07/05/18 12:26; Admin Dose 30 MG; Start 06/30/18 at 21:00 Lactobacillus Acidophilus/ Rhamnosus (Culturelle) 1 cap BID PO Last administered on 07/06/18 08:38; Admin Dose 1 CAP; Start 06/30/18 at 21:00 Megestrol Acetate (Megace Susp) 400 mg BID PO Last administered on 07/06/18 08:38; Admin Dose 400 MG; Start 06/30/18 at 21:00 Mirtazapine (Remeron) 15 mg HS PO Last administered on 07/05/18 21:17; Admin Dose 15 MG; Start 06/30/18 at 21:00 Multivitamins Therapeutic (Theragran) 1 tab DAILY PO Last administered on 07/06/18 08:38; Admin Dose 1 TAB; Start 07/01/18 at 09:00 Pantoprazole (Protonix Tab) 40 mg DAILY PO Last administered on 07/06/18 08:38; Admin Dose 40 MG; Start 07/01/18 at 09:00 Zinc Sulfate (Zinc Sulfate) 220 mg DAILY PO Last administered on 07/06/18 08:39; Admin Dose 220 MG; Start 07/01/18 at 09:00 Enoxaparin Sodium (Lovenox) 40 mg DAILY SC Last administered on 07/06/18 09:12; Admin Dose 40 MG; Start 07/01/18 at 09:00 Linezolid 300 ml @ 300 mls/hr Q12 IVPB Last administered on 07/06/18 08:38; Admin Dose 300 MLS/HR; Start 07/02/18 at 12:00 Meropenem/Sodium Chloride 50 ml @ 100 mls/hr Q12 IVPB Last administered on 07/06/18 08:38; Admin Dose 100 MLS/HR; Start 07/02/18 at 11:30 Collagenase (Santyl) 1 applic BID TOP Last administered on 07/06/18 08:38; Admin Dose 1 APPLIC; Start 07/04/18 at 14:30 Aspirin (Aspirin) 81 mg DAILY PO Last administered on 07/06/18 08:38; Admin Dose 81 MG; Start 07/05/18 at 09:00 Folic Acid (Folic Acid) 1 mg DAILY PO Last administered on 07/06/18 08:38; Admin Dose 1 MG; Start 07/05/18 at 09:00 Charan Cottrell DO July 06, 2018 12:32
--- NOTE | 2018-07-06 13:33 | CONS ---
Assessment/Plan Assessment/Plan Hospital Course 72 yo M with multiple comorbidities who presents for evaluation of altered mental status. A HCT was obtained and notable for ventriculomegaly and degenerative changes... for which neurology is consulted. The ventriculomegaly is likely chronic, and without acute clinical significance.. LDL 34 P: Cont ASA for secondary stroke prevention; LDL is at goal Recommend repeat neuroimaging for surveillance, as an outpatient [place] as able Limit sedating medications where possible PT/OT/ST as necessary Other management per primary Will follow clinically Consultation Date/Type/Reason Admit Date/Time June 30, 2018 at 08:59 Type of Consult Neurology Reason for Consultation hydrocephalus Requesting Provider: DEBBIE GALLEGOS MD Date/Time of Note DATE: 07/06/18 TIME: 13:33 24 HR Interval Summary Free Text/Dictation Continues acute care. Exam Vital Signs Vitals Vital Signs Date Temp Pulse Resp B/P (MAP) Pulse Ox O2 O2 Flow FiO2 Time Delivery Rate 07/06/18 107 12:01 07/06/18 98.3 20 109/58 99 11:48 (75) 07/06/18 Nasal 2.0 08:59 Cannula Intake and Output 07/05/18 07/05/18 07/06/18 1515:00 23:00 07:00 IntakeIntake Total 1100 ml 100 ml OutputOutput Total 850 ml 1100 ml BalanceBalance 250 ml -1000 ml Exam PE: Gen Appearance: No Apparent Distress HEENT: Normocephalic; nasal cannula Cardiovascular: Regular rate Abdomen: Soft Extremities: Dry NE: The patient was awake and alert. Sparsely verbal. Oriented to self. He did not follow any commands. Cranial nerve examination was limited by mental status. Pupils were equal and re active to light. There was no afferent pupillary defect. Funduscopic examination was limited. Face was grossly symmetric, w/ present corneal and cough reflexes. Tone was normal. Muscle bulk was reduced. I did not see fasciculations. The patient withdrew his extremities to noxious stimuli. Coordination and gait testing was limited by mental status. Arm and leg reflexes were within normal limits and symmetric. Martinez's sign was absent. Plantar responses were flexor. ANDREA NOEL NP July 06, 2018 13:33
[2018-07-06] MEDS: DIGOXIN 0.25 MG TAB PO SCH (13:45)
--- NOTE | 2018-07-06 14:52 | CONS ---
Assessment/Plan Assessment/Plan Hospital Course (Demo Recall) Patient is lethargic, responsive, no distress, no fevers overnight. Microbiology: Blood cultures since admission grew MRSA, urine culture grew VRE E. coli ESBL and Enterobacter cloaca. Repeat blood cultures came back negative. Antimicrobials: Zyvox, meropenem Physical examination: Fragile elderly man who is in no distress. Head atraumatic normocephalic neck is supple chest rise symmetrical breath sounds diminished bases. Heart: S1-S2. Abdomen soft bowel sounds present. Extremitie s without cyanosis Assessment: 1. Persistent MRSA bacteremia on admission likely secondary to line that was discontinued, rule out vegetations 2. Polymicrobial UTI 3. Acute on chronic encephalopathy 4. Cachexia 5. Atrial fibrillation status post RVR Plan: Clinically unchanged, cardiology on case, repeat blood cultures negative, 2D echo revealed no vegetations, continue on current antibiotics for now, repeat urine culture Consultation Date/Type/Reason Admit Date/Time June 30, 2018 at 08:59 Initial Consult Date 07/03/18 Type of Consult id Requesting Provider: DEBBIE GALLEGOS MD Date/Time of Note DATE: 07/06/18 TIME: 14:51 Exam/Review of Systems Exam Vitals Vital Signs Date Temp Pulse Resp B/P (MAP) Pulse Ox O2 O2 Flow FiO2 Time Delivery Rate 07/06/18 107 12:01 07/06/18 98.3 20 109/58 99 11:48 (75) 07/06/18 Nasal 2.0 08:59 Cannula Intake and Output 07/05/18 07/05/18 07/06/18 1414:59 22:59 06:59 IntakeIntake Total 1100 ml 100 ml OutputOutput Total 850 ml 1100 ml BalanceBalance 250 ml -1000 ml Results Result Diagram: 07/04/18 0514 07/04/18 0514 Medications Medication Current Medications IV Flush (NS 3 ml) 3 ml PER PROTOCOL IV ; Start 06/30/18 at 15:00 Ondansetron HCl (Zofran Inj) 4 mg Q6H PRN IV NAUSEA/VOMITING; Start 06/30/18 at 15:00 Acetaminophen/ Hydrocodone Bitart ([place] (5/325)) 1 tab Q6H PRN PO .MOD PAIN 4- 6 Last administered on 06/30/18at 20:09; Admin Dose 1 TAB; Start 06/30/18 at 15:00 Morphine Sulfate (morphine) 2 mg Q4H PRN IV .SEVERE PAIN 7-10; Start 06/30/18 at 15:00 Docusate Sodium (Colace) 100 mg Q12H PRN PO .CONSTIPATION; Start 06/30/18 at 15:00 Zolpidem Tartrate (Ambien) 5 mg QHS PRN PO .INSOMNIA; Start 06/30/18 at 15:00 Acetaminophen (Tylenol Tab) 650 mg Q6H PRN PO PAIN LEVEL 1-3 OR FEVER Last administered on 06/30/18 17:25; Admin Dose 650 MG; Start 06/30/18 at 15:00 Ascorbic Acid (Vitamin C) 500 mg DAILY PO Last administered on 07/06/18 08:38; Admin Dose 500 MG; Start 07/01/18 at 09:00 Benztropine Mesylate (Cogentin) 1 mg DAILY PO Last administered on 07/06/18 08:38; Admin Dose 1 MG; Start 07/01/18 at 09:00 Digoxin (Digoxin) 0.25 mg DAILY@1300 PO Last administered on 07/06/18 13:45; Admin Dose 0.25 MG; Start 07/01/18 at 13:00 Diltiazem HCl (Cardizem) 30 mg TID PO Last administered on 07/06/18 13:48; Admin Dose 30 MG; Start 06/30/18 at 21:00 Lactobacillus Acidophilus/ Rhamnosus (Culturelle) 1 cap BID PO Last administered on 07/06/18 08:38; Admin Dose 1 CAP; Start 06/30/18 at 21:00 Megestrol Acetate (Megace Susp) 400 mg BID PO Last administered on 07/06/18 08:38; Admin Dose 400 MG; Start 06/30/18 at 21:00 Mirtazapine (Remeron) 15 mg HS PO Last administered on 07/05/18 21:17; Admin Dose 15 MG; Start 06/30/18 at 21:00 Multivitamins Therapeutic (Theragran) 1 tab DAILY PO Last administered on 07/06/18 08:38; Admin Dose 1 TAB; Start 07/01/18 at 09:00 Pantoprazole (Protonix Tab) 40 mg DAILY PO Last administered on 07/06/18 08:38; Admin Dose 40 MG; Start 07/01/18 at 09:00 Zinc Sulfate (Zinc Sulfate) 220 mg DAILY PO Last administered on 07/06/18 08:39; Admin Dose 220 MG; Start 07/01/18 at 09:00 Enoxaparin Sodium (Lovenox) 40 mg DAILY SC Last administered on 07/06/18 09:12; Admin Dose 40 MG; Start 07/01/18 at 09:00 Linezolid 300 ml @ 300 mls/hr Q12 IVPB Last administered on 07/06/18 08:38; Admin Dose 300 MLS/HR; Start 07/02/18 at 12:00 Meropenem/Sodium Chloride 50 ml @ 100 mls/hr Q12 IVPB Last administered on 07/06/18 08:38; Admin Dose 100 MLS/HR; Start 07/02/18 at 11:30 Collagenase (Santyl) 1 applic BID TOP Last administered on 07/06/18 08:38; Admin Dose 1 APPLIC; Start 07/04/18 at 14:30 Aspirin (Aspirin) 81 mg DAILY PO Last administered on 07/06/18 08:38; Admin Dose 81 MG; Start 07/05/18 at 09:00 Folic Acid (Folic Acid) 1 mg DAILY PO Last administered on 07/06/18 08:38; Admin Dose 1 MG; Start 07/05/18 at 09:00 SANDER WILL NP July 06, 2018 14:52
--- NOTE | 2018-07-06 16:10 | PN ---
Date/Time of Note Date/Time of Note DATE: 07/06/18 TIME: 16:10 Assessment/Plan VTE Prophylaxis Risk score (from Nsg)>0 risk: 7 SCD applied (from Nsg): Yes Pharmacological prophylaxis: heparin Lines/Catheters IV Catheter Type (from Nrsg): Saline Lock Urinary Cath still in place: Yes Reason Cath still needed: urinary retention Assessment/Plan Hospital Course EXAM: Lethargic Responsive to noxious stimluil RRR CTAB Soft nt nd A/P: 72 yo male with h/o A FIb, nursning home resident with likely dementia who presents with sepsis and MRSA bacteremia MRSA bactermia: - Persistent. Echo shows no vegetation - Abx per ID - Surveillance cultures until confirmed negative Encephelopathy: - Unclear chornicity. CT head concerning for hydrocephalus. Management per digna monteroogy A Fib Result Diagram: 07/04/1851307/04/18513 Subjective 24 Hr Interval Summary Free Text/Dictation No change to status Cultures seem cleared to date Exam/Review of Systems Exam Vitals Vital Signs Date Temp Pulse Resp B/P (MAP) Pulse Ox O2 O2 Flow FiO2 Time Delivery Rate 07/06/18 98.3 71 20 83/46 (58) 98 15:02 07/06/18 Nasal 2.0 08:59 Cannula Intake and Output 07/05/18 07/05/18 07/06/18 1515:00 23:00 07:00 IntakeIntake Total 1100 ml 100 ml OutputOutput Total 850 ml 1100 ml BalanceBalance 250 ml -1000 ml Medications Medication Current Medications IV Flush (NS 3 ml) 3 ml PER PROTOCOL IV ; Start 06/30/18 at 15:00 Ondansetron HCl (Zofran Inj) 4 mg Q6H PRN IV NAUSEA/VOMITING; Start 06/30/18 at 15:00 Acetaminophen/ Hydrocodone Bitart ([place] (5/325)) 1 tab Q6H PRN PO .MOD PAIN 4- 6 Last administered on 06/30/18at 20:09; Admin Dose 1 TAB; Start 06/30/18 at 15:00 Morphine Sulfate (morphine) 2 mg Q4H PRN IV .SEVERE PAIN 7-10; Start 06/30/18 at 15:00 Docusate Sodium (Colace) 100 mg Q12H PRN PO .CONSTIPATION; Start 06/30/18 at 15:00 Zolpidem Tartrate (Ambien) 5 mg QHS PRN PO .INSOMNIA; Start 06/30/18 at 15:00 Acetaminophen (Tylenol Tab) 650 mg Q6H PRN PO PAIN LEVEL 1-3 OR FEVER Last administered on 06/30/18 17:25; Admin Dose 650 MG; Start 06/30/18 at 15:00 Ascorbic Acid (Vitamin C) 500 mg DAILY PO Last administered on 07/06/18 08:38; Admin Dose 500 MG; Start 07/01/18 at 09:00 Benztropine Mesylate (Cogentin) 1 mg DAILY PO Last administered on 07/06/18 08:38; Admin Dose 1 MG; Start 07/01/18 at 09:00 Digoxin (Digoxin) 0.25 mg DAILY@1300 PO Last administered on 07/06/18 13:45; Admin Dose 0.25 MG; Start 07/01/18 at 13:00 Diltiazem HCl (Cardizem) 30 mg TID PO Last administered on 07/06/18 13:48; Admin Dose 30 MG; Start 06/30/18 at 21:00 Lactobacillus Acidophilus/ Rhamnosus (Culturelle) 1 cap BID PO Last administered on 07/06/18 08:38; Admin Dose 1 CAP; Start 06/30/18 at 21:00 Megestrol Acetate (Megace Susp) 400 mg BID PO Last administered on 07/06/18 08:38; Admin Dose 400 MG; Start 06/30/18 at 21:00 Mirtazapine (Remeron) 15 mg HS PO Last administered on 07/05/18 21:17; Admin Dose 15 MG; Start 06/30/18 at 21:00 Multivitamins Therapeutic (Theragran) 1 tab DAILY PO Last administered on 07/06/18 08:38; Admin Dose 1 TAB; Start 07/01/18 at 09:00 Pantoprazole (Protonix Tab) 40 mg DAILY PO Last administered on 07/06/18 08:38; Admin Dose 40 MG; Start 07/01/18 at 09:00 Zinc Sulfate (Zinc Sulfate) 220 mg DAILY PO Last administered on 07/06/18 08:39; Admin Dose 220 MG; Start 07/01/18 at 09:00 Enoxaparin Sodium (Lovenox) 40 mg DAILY SC Last administered on 07/06/18 09:12; Admin Dose 40 MG; Start 07/01/18 at 09:00 Linezolid 300 ml @ 300 mls/hr Q12 IVPB Last administered on 07/06/18 08:38; Admin Dose 300 MLS/HR; Start 07/02/18 at 12:00 Meropenem/Sodium Chloride 50 ml @ 100 mls/hr Q12 IVPB Last administered on 07/06/18 08:38; Admin Dose 100 MLS/HR; Start 07/02/18 at 11:30 Collagenase (Santyl) 1 applic BID TOP Last administered on 07/06/18 08:38; Admin Dose 1 APPLIC; Start 07/04/18 at 14:30 Aspirin (Aspirin) 81 mg DAILY PO Last administered on 07/06/18 08:38; Admin Dose 81 MG; Start 07/05/18 at 09:00 Folic Acid (Folic Acid) 1 mg DAILY PO Last administered on 07/06/18 08:38; Admin Dose 1 MG; Start 07/05/18 at 09:00 DEBBIE GALLEGOS MD July 06, 2018 16:10
[2018-07-06] MEDS: MIRTAZAPINE 15 MG TAB PO SCH (20:30)
[2018-07-07] VITALS (12 sets, daily range): BP systolic 97–162; BP diastolic 40–87; PULSE 67–126; RESP 18–20
[2018-07-07] MEDS ORDERED: METOPROLOL 5 MG INJ IV ONE
[2018-07-07] MEDS ORDERED: SOD CHLORIDE 0.9% 500 ML IV ONE (06:00)
[2018-07-07] MEDS: FOLIC ACID 1 MG TAB PO SCH (08:43)
[2018-07-07] MEDS: MEGESTROL (40 MG/ML) 10ML CUP PO SCH (08:44)
[2018-07-07] MEDS: LACTOBACILLUS RHAMNOSUS CAP PO SCH ×2 (08:44→21:00)
[2018-07-07] MEDS: ASCORBIC ACID 500 MG TAB PO SCH (08:44)
[2018-07-07] MEDS: ASPIRIN 81 MG TAB PO SCH (08:44)
[2018-07-07] MEDS: MULTIVITAMINS THERAPEUTIC TAB PO SCH (08:44)
[2018-07-07] MEDS: COLLAGENASE 5 GM (UD JAR) TOP SCH ×2 (08:44→22:07)
[2018-07-07] MEDS: ZINC SULFATE 220 MG CAP PO SCH (08:44)
[2018-07-07] MEDS: PANTOPRAZOLE (EC) 40 MG TAB PO SCH (08:44)
[2018-07-07] MEDS: LINEZOLID 600 MG/D5W (PMX) 300 ML IVPB SCH (08:45)
[2018-07-07] MEDS: ENOXAPARIN 40 MG/0.4 ML SYG SC SCH (08:45)
[2018-07-07] MEDS: MEROPENEM 1 GM/50ML(PMX) 50 ML IVPB SCH ×2 (08:45→22:07)
[2018-07-07] MEDS: BENZTROPINE 1 MG TAB PO SCH (08:46)
[2018-07-07] MEDS: DILTIAZEM 30 MG TAB PO SCH ×3 (08:47→21:00)
[2018-07-07] MEDS: BALSAM PERU/CASTOR OIL 60 GM TUBE TOP SCH ×2 (08:48→22:08)
--- NOTE | 2018-07-07 13:00 | PN ---
Date/Time of Note Date/Time of Note DATE: 07/07/18 TIME: 12:59 Assessment/Plan VTE Prophylaxis Risk score (from Nsg)>0 risk: 7 SCD applied (from Nsg): Yes Pharmacological prophylaxis: heparin Lines/Catheters IV Catheter Type (from Nrsg): Saline Lock Urinary Cath still in place: Yes Reason Cath still needed: urinary retention Assessment/Plan Hospital Course EXAM: Lethargic Responsive to noxious stimluil RRR CTAB Soft nt nd A/P: 72 yo male with h/o A FIb, nursning home resident with likely dementia who presents with sepsis and persistent MRSA bacteremia of unclear source MRSA bactermia: - Persistent. Echo shows no vegetation. Will CT C/A/P to evaluate focal infection given poor ability to communicate pain etc. SUDEEP likely indicated, defer to cards/ID - Abx per ID - Surveillance cultures until confirmed negative Encephelopathy: - Unclear chornicity. CT head concerning for hydrocephalus. Management per neurology A Fib Result Diagram: 07/04/1851307/04/18513 Subjective 24 Hr Interval Summary Free Text/Dictation Blood cultures continue to be positive Patient otherwise clinically unchanged Exam/Review of Systems Exam Vitals Vital Signs Date Temp Pulse Resp B/P (MAP) Pulse Ox O2 O2 Flow FiO2 Time Delivery Rate 07/07/18 98.3 85 20 149/74 96 12:26 (99) 07/07/18 Nasal 2.0 07:31 Cannula Intake and Output 07/06/18 07/06/18 07/07/18 1515:00 23:00 07:00 IntakeIntake Total 650 ml 240 ml OutputOutput Total 350 ml 200 ml BalanceBalance 300 ml 40 ml Medications Medication Current Medications IV Flush (NS 3 ml) 3 ml PER PROTOCOL IV ; Start 06/30/18 at 15:00 Ondansetron HCl (Zofran Inj) 4 mg Q6H PRN IV NAUSEA/VOMITING; Start 06/30/18 at 15:00 Acetaminophen/ Hydrocodone Bitart ([place] (5/325)) 1 tab Q6H PRN PO .MOD PAIN 4- 6 Last administered on 06/30/18at 20:09; Admin Dose 1 TAB; Start 06/30/18 at 15:00 Morphine Sulfate (morphine) 2 mg Q4H PRN IV .SEVERE PAIN 7-10; Start 06/30/18 at 15:00 Docusate Sodium (Colace) 100 mg Q12H PRN PO .CONSTIPATION; Start 06/30/18 at 15:00 Zolpidem Tartrate (Ambien) 5 mg QHS PRN PO .INSOMNIA; Start 06/30/18 at 15:00 Acetaminophen (Tylenol Tab) 650 mg Q6H PRN PO PAIN LEVEL 1-3 OR FEVER Last administered on 06/30/18 17:25; Admin Dose 650 MG; Start 06/30/18 at 15:00 Ascorbic Acid (Vitamin C) 500 mg DAILY PO Last administered on 07/07/18 08:44; Admin Dose 500 MG; Start 07/01/18 at 09:00 Benztropine Mesylate (Cogentin) 1 mg DAILY PO Last administered on 07/07/18 08:46; Admin Dose 1 MG; Start 07/01/18 at 09:00 Digoxin (Digoxin) 0.25 mg DAILY@1300 PO Last administered on 07/06/18 13:45; Admin Dose 0.25 MG; Start 07/01/18 at 13:00 Diltiazem HCl (Cardizem) 30 mg TID PO Last administered on 07/07/18 08:47; Admin Dose 30 MG; Start 06/30/18 at 21:00 Lactobacillus Acidophilus/ Rhamnosus (Culturelle) 1 cap BID PO Last administered on 07/07/18 08:44; Admin Dose 1 CAP; Start 06/30/18 at 21:00 Megestrol Acetate (Megace Susp) 400 mg BID PO Last administered on 07/07/18 08:44; Admin Dose 400 MG; Start 06/30/18 at 21:00 Mirtazapine (Remeron) 15 mg HS PO Last administered on 07/06/18 20:30; Admin Dose 15 MG; Start 06/30/18 at 21:00 Multivitamins Therapeutic (Theragran) 1 tab DAILY PO Last administered on 07/07/18 08:44; Admin Dose 1 TAB; Start 07/01/18 at 09:00 Pantoprazole (Protonix Tab) 40 mg DAILY PO Last administered on 07/07/18 08:44; Admin Dose 40 MG; Start 07/01/18 at 09:00 Zinc Sulfate (Zinc Sulfate) 220 mg DAILY PO Last administered on 07/07/18 08:44; Admin Dose 220 MG; Start 07/01/18 at 09:00 Enoxaparin Sodium (Lovenox) 40 mg DAILY SC Last administered on 07/07/18 08:45; Admin Dose 40 MG; Start 07/01/18 at 09:00 Linezolid 300 ml @ 300 mls/hr Q12 IVPB Last administered on 07/07/18 08:45; Admin Dose 300 MLS/HR; Start 07/02/18 at 12:00 Meropenem/Sodium Chloride 50 ml @ 100 mls/hr Q12 IVPB Last administered on 07/07/18 08:45; Admin Dose 100 MLS/HR; Start 07/02/18 at 11:30 Collagenase (Santyl) 1 applic BID TOP Last administered on 07/07/18 08:44; Admin Dose 1 APPLIC; Start 07/04/18 at 14:30 Aspirin (Aspirin) 81 mg DAILY PO Last administered on 07/07/18 08:44; Admin Dose 81 MG; Start 07/05/18 at 09:00 Folic Acid (Folic Acid) 1 mg DAILY PO Last administered on 07/07/18 08:43; Admin Dose 1 MG; Start 07/05/18 at 09:00 DBEBIE GALLEGOS MD July 07, 2018 13:00
--- NOTE | 2018-07-07 13:41 | CONS ---
Assessment/Plan Assessment/Plan Hospital Course (Demo Recall) Noncommunicative in no distress no fevers overnight. Repeat blood cultures growing MRSA. Microbiology: Blood cultures since admission grew MRSA, urine culture grew VRE E. coli ESBL and Enterobacter cloaca. Repeat blood cultures growing MRSA. Antimicrobials: Zyvox, meropenem Physical examination: Fragile elderly man who is in no distress. Head atraumatic normocephalic neck is supple chest rise symmetrical breath sounds diminished bases. Heart: S1-S2. Abdomen soft bowel sounds present. Extremities without cyanosis Assessment: 1. Persistent MRSA bacteremia, rule out vegetations 2. Polymicrobial UTI 3. Acute on chronic encephalopathy 4. Cachexia 5. Atrial fibrillation status post RVR Plan: Clinically unchanged, continue on current antibiotics, consider SUDEEP and spinal MRI for persistent bacteremia Consultation Date/Type/Reason Admit Date/Time June 30, 2018 at 08:59 Initial Consult Date 07/03/18 Type of Consult id Requesting Provider: DEBBIE GALLEGOS MD Date/Time of Note DATE: 07/07/18 TIME: 13:40 Exam/Review of Systems Exam Vitals Vital Signs Date Temp Pulse Resp B/P (MAP) Pulse Ox O2 O2 Flow FiO2 Time Delivery Rate 07/07/18 98.3 85 20 149/74 96 12:26 (99) 07/07/18 Nasal 2.0 07:31 Cannula Intake and Output 07/06/18 07/06/18 07/07/18 1414:59 22:59 06:59 IntakeIntake Total 650 ml 240 ml OutputOutput Total 350 ml 200 ml BalanceBalance 300 ml 40 ml Results Result Diagram: 07/04/18 0514 07/04/18 0514 Medications Medication Current Medications IV Flush (NS 3 ml) 3 ml PER PROTOCOL IV ; Start 06/30/18 at 15:00 Ondansetron HCl (Zofran Inj) 4 mg Q6H PRN IV NAUSEA/VOMITING; Start 06/30/18 at 15:00 Acetaminophen/ Hydrocodone Bitart ([place] (5/325)) 1 tab Q6H PRN PO .MOD PAIN 4- 6 Last administered on 06/30/18at 20:09; Admin Dose 1 TAB; Start 06/30/18 at 15:00 Morphine Sulfate (morphine) 2 mg Q4H PRN IV .SEVERE PAIN 7-10; Start 06/30/18 at 15:00 Docusate Sodium (Colace) 100 mg Q12H PRN PO .CONSTIPATION; Start 06/30/18 at 15:00 Zolpidem Tartrate (Ambien) 5 mg QHS PRN PO .INSOMNIA; Start 06/30/18 at 15:00 Acetaminophen (Tylenol Tab) 650 mg Q6H PRN PO PAIN LEVEL 1-3 OR FEVER Last administered on 06/30/18 17:25; Admin Dose 650 MG; Start 06/30/18 at 15:00 Ascorbic Acid (Vitamin C) 500 mg DAILY PO Last administered on 07/07/18 08:44; Admin Dose 500 MG; Start 07/01/18 at 09:00 Benztropine Mesylate (Cogentin) 1 mg DAILY PO Last administered on 07/07/18 08:46; Admin Dose 1 MG; Start 07/01/18 at 09:00 Digoxin (Digoxin) 0.25 mg DAILY@1300 PO Last administered on 07/06/18 13:45; Admin Dose 0.25 MG; Start 07/01/18 at 13:00 Diltiazem HCl (Cardizem) 30 mg TID PO Last administered on 07/07/18 08:47; Admin Dose 30 MG; Start 06/30/18 at 21:00 Lactobacillus Acidophilus/ Rhamnosus (Culturelle) 1 cap BID PO Last administered on 07/07/18 08:44; Admin Dose 1 CAP; Start 06/30/18 at 21:00 Megestrol Acetate (Megace Susp) 400 mg BID PO Last administered on 07/07/18 08:44; Admin Dose 400 MG; Start 06/30/18 at 21:00 Mirtazapine (Remeron) 15 mg HS PO Last administered on 07/06/18 20:30; Admin Dose 15 MG; Start 06/30/18 at 21:00 Multivitamins Therapeutic (Theragran) 1 tab DAILY PO Last administered on 07/07/18 08:44; Admin Dose 1 TAB; Start 07/01/18 at 09:00 Pantoprazole (Protonix Tab) 40 mg DAILY PO Last administered on 07/07/18 08:44; Admin Dose 40 MG; Start 07/01/18 at 09:00 Zinc Sulfate (Zinc Sulfate) 220 mg DAILY PO Last administered on 07/07/18 08: 44; Admin Dose 220 MG; Start 07/01/18 at 09:00 Enoxaparin Sodium (Lovenox) 40 mg DAILY SC Last administered on 07/07/18 08:45; Admin Dose 40 MG; Start 07/01/18 at 09:00 Linezolid 300 ml @ 300 mls/hr Q12 IVPB Last administered on 07/07/18 08:45; Admin Dose 300 MLS/HR; Start 07/02/18 at 12:00 Meropenem/Sodium Chloride 50 ml @ 100 mls/hr Q12 IVPB Last administered on 07/07/18 08:45; Admin Dose 100 MLS/HR; Start 07/02/18 at 11:30 Collagenase (Santyl) 1 applic BID TOP Last administered on 07/07/18 08:44; Admin Dose 1 APPLIC; Start 07/04/18 at 14:30 Aspirin (Aspirin) 81 mg DAILY PO Last administered on 07/07/18 08:44; Admin Dose 81 MG; Start 07/05/18 at 09:00 Folic Acid (Folic Acid) 1 mg DAILY PO Last administered on 07/07/18 08:43; Admin Dose 1 MG; Start 07/05/18 at 09:00 Iohexol ((Gastrografin therapeutic equivalent)) 900 ml GIVE PRIOR TO CT ONCE PO ; Start 07/07/18 at 14:00; Stop 07/07/18 at 14:01 SANDER WILL NP July 07, 2018 13:41
[2018-07-07] MEDS ORDERED: IOHEXOL 14.3 MG(I)/ML (ADULT) BTL PO ONE (14:00)
--- NOTE | 2018-07-07 14:31 | CONS ---
Assessment/Plan Assessment/Plan Hospital Course 72 yo M with multiple comorbidities who presents for evaluation of altered mental status. A HCT was obtained and notable for ventriculomegaly and degenerative changes... for which neurology is consulted. The ventriculomegaly is likely chronic, and without acute clinical significance.. LDL 34 P: Cont ASA for secondary stroke prevention; LDL is at goal Recommend repeat neuroimaging for surveillance, as an outpatient [place] as able Limit sedating medications where possible PT/OT/ST as necessary Other management per primary Will follow clinically Consultation Date/Type/Reason Admit Date/Time June 30, 2018 at 08:59 Type of Consult Neurology Reason for Consultation hydrocephalus Requesting Provider: DEBBIE GALLEGOS MD Date/Time of Note DATE: 07/07/18 TIME: 14:31 24 HR Interval Summary Free Text/Dictation Continues acute care. Exam Vital Signs Vitals Vital Signs Date Temp Pulse Resp B/P (MAP) Pulse Ox O2 O2 Flow FiO2 Time Delivery Rate 07/07/18 98.3 85 20 149/74 96 12:26 (99) 07/07/18 Nasal 2.0 07:31 Cannula Intake and Output 07/06/18 07/06/18 07/07/18 1515:00 23:00 07:00 IntakeIntake Total 650 ml 240 ml OutputOutput Total 350 ml 200 ml BalanceBalance 300 ml 40 ml Exam PE: Gen Appearance: No Apparent Distress HEENT: Normocephalic; nasal cannula Cardiovascular: Regular rate Abdomen: Soft Extremities: Dry NE: The patient was awake and alert. Sparsely verbal. Oriented to self. He did not follow any commands. Cranial nerve examination was limited by mental status. Pupils were equal and reactive to light. There was no afferent pupillary defect. Funduscopic examination was limited. Face was grossly symmetric, w/ present corneal and cough reflexes. Tone was normal. Muscle bulk was reduced. I did not see fasciculations. The patient withdrew his extremities to noxious stimuli. Coordination and gait testing was limited by mental status. Arm and leg reflexes were within normal limits and symmetric. Martinez's sign was absent. Plantar responses were flexor. ANDREA NOEL NP July 07, 2018 14:31 JAMES BROWN July 08, 2018 15:23
[2018-07-07] MEDS: DIGOXIN 0.25 MG TAB PO SCH (14:35)
--- NOTE | 2018-07-07 15:39 | CONS ---
Assessment/Plan Assessment/Plan Hospital Course (Demo Recall) Atrial fibrillation Preserved EF Sepsis with MRSA bacteremia Abnormal mitral valve on echocardiogram with likely vegetation Encephalopathy-improved -Patient with persistent bacteremia. Repeat echocardiogram was performed with closer evaluation of the mitral valve. There is evidence of an echodense structure seen concerning for endocarditis. Will treat as such. -Continue Cardizem as tolerated -Maintain k>4.0 and Mg>2.0 Consultation Date/Type/Reason Admit Date/Time June 30, 2018 at 08:59 Initial Consult Date 07/03/18 Type of Consult Cardiology Requesting Provider: DEBBIE GALLEGOS MD Date/Time of Note DATE: 07/07/18 TIME: 15:36 24 HR Interval Summary Free Text/Dictation Patient seen and examined. Still with persistent bacteremia Exam/Review of Systems Vital Signs Vitals Vital Signs Date Temp Pulse Resp B/P (MAP) Pulse Ox O2 O2 Flow FiO2 Time Delivery Rate 07/07/18 98.3 85 20 149/74 96 12:26 (99) 07/07/18 Nasal 2.0 07:31 Cannula Intake and Output 07/06/18 07/06/18 07/07/18 1515:00 23:00 07:00 IntakeIntake Total 650 ml 240 ml OutputOutput Total 350 ml 200 ml BalanceBalance 300 ml 40 ml Exam Constitutional: alert (No apparent distress, having IV placed) Head: normocephalic Respiratory: other (Coarse breath sounds bilaterally, no wheezing) Cardiovascular: irregular rhythm (S1-S2 heard) Gastrointestinal: soft, non-tender, bowel sounds Extremities: edema (Trace), other Labs Result Diagram: 07/04/18 0514 07/04/18 0514 Medications Medications Current Medications IV Flush (NS 3 ml) 3 ml PER PROTOCOL IV ; Start 06/30/18 at 15:00 Ondansetron HCl (Zofran Inj) 4 mg Q6H PRN IV NAUSEA/VOMITING; Start 06/30/18 at 15:00 Acetaminophen/ Hydrocodone Bitart ([place] (5/325)) 1 tab Q6H PRN PO .MOD PAIN 4- 6 Last administered on 06/30/18at 20:09; Admin Dose 1 TAB; Start 06/30/18 at 15:00 Morphine Sulfate (morphine) 2 mg Q4H PRN IV .SEVERE PAIN 7-10; Start 06/30/18 at 15:00 Docusate Sodium (Colace) 100 mg Q12H PRN PO .CONSTIPATION; Start 06/30/18 at 15:00 Zolpidem Tartrate (Ambien) 5 mg QHS PRN PO .INSOMNIA; Start 06/30/18 at 15:00 Acetaminophen (Tylenol Tab) 650 mg Q6H PRN PO PAIN LEVEL 1-3 OR FEVER Last administered on 06/30/18 17:25; Admin Dose 650 MG; Start 06/30/18 at 15:00 Ascorbic Acid (Vitamin C) 500 mg DAILY PO Last administered on 07/07/18 08:44; Admin Dose 500 MG; Start 07/01/18 at 09:00 Benztropine Mesylate (Cogentin) 1 mg DAILY PO Last administered on 07/07/18 08:46; Admin Dose 1 MG; Start 07/01/18 at 09:00 Digoxin (Digoxin) 0.25 mg DAILY@1300 PO Last administered on 07/07/18 14:35; Admin Dose 0.25 MG; Start 07/01/18 at 13:00 Diltiazem HCl (Cardizem) 30 mg TID PO Last administered on 07/07/18 14:36; Admin Dose 30 MG; Start 06/30/18 at 21:00 Lactobacillus Acidophilus/ Rhamnosus (Culturelle) 1 cap BID PO Last administered on 07/07/18 08:44; Admin Dose 1 CAP; Start 06/30/18 at 21:00 Megestrol Acetate (Megace Susp) 400 mg BID PO Last administered on 07/07/18 08:44; Admin Dose 400 MG; Start 06/30/18 at 21:00 Mirtazapine (Remeron) 15 mg HS PO Last administered on 07/06/18 20:30; Admin Dose 15 MG; Start 06/30/18 at 21:00 Multivitamins Therapeutic (Theragran) 1 tab DAILY PO Last administered on 07/07/18 08:44; Admin Dose 1 TAB; Start 07/01/18 at 09:00 Pantoprazole (Protonix Tab) 40 mg DAILY PO Last administered on 07/07/18 08:44; Admin Dose 40 MG; Start 07/01/18 at 09:00 Zinc Sulfate (Zinc Sulfate) 220 mg DAILY PO Last administered on 07/07/18 08:44; Admin Dose 220 MG; Start 07/01/18 at 09:00 Enoxaparin Sodium (Lovenox) 40 mg DAILY SC Last administered on 07/07/18 08:45; Admin Dose 40 MG; Start 07/01/18 at 09:00 Linezolid 300 ml @ 300 mls/hr Q12 IVPB Last administered on 07/07/18 08:45; Admin Dose 300 MLS/HR; Start 07/02/18 at 12:00 Meropenem/Sodium Chloride 50 ml @ 100 mls/hr Q12 IVPB Last administered on 07/07/18 08:45; Admin Dose 100 MLS/HR; Start 07/02/18 at 11:30 Collagenase (Santyl) 1 applic BID TOP Last administered on 07/07/18 08:44; Admin Dose 1 APPLIC; Start 07/04/18 at 14:30 Aspirin (Aspirin) 81 mg DAILY PO Last administered on 07/07/18 08:44; Admin Dose 81 MG; Start 07/05/18 at 09:00 Folic Acid (Folic Acid) 1 mg DAILY PO Last administered on 07/07/18 08:43; Admin Dose 1 MG; Start 07/05/18 at 09:00 Charan Cottrell DO July 07, 2018 15:39
--- NOTE | 2018-07-07 16:15 | RADRPT ---
Echocardiogram Report Patient Name: LEXI JOHNSONPatient ID: [id number] : 10-12-1946 (72y 7m)Study Date: 07/07/2018 3:14:22 PM Gender: MAccession #: [id number] Tech: Chiki Hope [facility] Location: 602 Ref.Physician: HOSEA COTTRELL Height(Cm): BSA: Weight(Kg): Quality: AdequateAccount #: Procedures: Echocardiographic Report: Transthoracic echocardiogram examination. Indications: Endocarditis. Findings: Left Ventricle: The left ventricular ejection fraction is visually estimated at 60-65 %. Mitral Valve: Posterior mitral valve leaflet appear moderately thickened. Mild to moderate mitral regurgitation. The regurgitation jet is eccentrically directed which may underestimate the severity of mitral regurgitation. Echogenic structure is seen on the mitral valve, most consistent with vegetation. Aortic Valve: Aortic cusps appear mildly calcified. Mild to moderate aortic regurgitation. Conclusions: Posterior mitral valve leaflet appear moderately thickened. Mild to moderate mitral regurgitation. The regurgitation jet is eccentrically directed which may underestimate the severity of mitral regurgitation. Echogenic structure is seen on the mitral valve, most consistent with vegetation. Electronically Signed By: Hosea Cottrell 2018-07-07 16:13:49 PDT
[2018-07-07] MEDS ORDERED: VANCOMYCIN IV PER PHARMACY XX SCH (17:00)
[2018-07-07] MEDS: MIRTAZAPINE 15 MG TAB PO SCH (21:00)
[2018-07-07] MEDS ORDERED: SOD CHLORIDE 0.9% 100 ML ONE (22:12)
[2018-07-07] MEDS ORDERED: IOHEXOL 300MG/ML 150 ML BTL ONE (22:12)
[2018-07-07] MEDS ORDERED: VANCOMYCIN 1 GM 250 ML IVPB SCH (23:00)
[2018-07-08] VITALS (13 sets, daily range): BP systolic 94–110; BP diastolic 43–53; PULSE 34–87; RESP 17–20
[2018-07-08] MEDS: FOLIC ACID 1 MG TAB PO SCH (08:53)
[2018-07-08] MEDS: LACTOBACILLUS RHAMNOSUS CAP PO SCH ×2 (08:53→21:30)
[2018-07-08] MEDS: MULTIVITAMINS THERAPEUTIC TAB PO SCH (08:53)
[2018-07-08] MEDS: ZINC SULFATE 220 MG CAP PO SCH (08:53)
[2018-07-08] MEDS: MEROPENEM 1 GM/50ML(PMX) 50 ML IVPB SCH (08:53)
[2018-07-08] MEDS: DILTIAZEM 30 MG TAB PO SCH ×4 (08:53→21:00)
[2018-07-08] MEDS: ASPIRIN 81 MG TAB PO SCH (08:53)
[2018-07-08] MEDS: COLLAGENASE 5 GM (UD JAR) TOP SCH ×2 (08:53→21:30)
[2018-07-08] MEDS: BALSAM PERU/CASTOR OIL 60 GM TUBE TOP SCH ×2 (08:54→21:31)
[2018-07-08] MEDS: ASCORBIC ACID 500 MG TAB PO SCH (08:54)
[2018-07-08] MEDS: PANTOPRAZOLE (EC) 40 MG TAB PO SCH (08:54)
[2018-07-08] MEDS: ENOXAPARIN 40 MG/0.4 ML SYG SC SCH (09:01)
[2018-07-08] MEDS ORDERED: FUROSEMIDE 40 MG INJ IV ONE (11:30)
--- NOTE | 2018-07-08 11:48 | CONS ---
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 Denies shortness of breath or palpitations Exam/Review of Systems Vital Signs Vitals Vital Signs Date Temp Pulse Resp B/P (MAP) Pulse Ox O2 O2 Flow FiO2 Time Delivery Rate 07/08/18 97.7 80 20 99/50 (66) 96 Nasal 11:13 Cannula 07/08/18 2.0 07:46 Intake and Output 07/07/18 07/07/18 07/08/18 1515:00 23:00 07:00 IntakeIntake Total 200 ml OutputOutput Total 1200 ml 550 ml BalanceBalance -1000 ml -550 ml Exam Constitutional: alert (Follows commands, answers some questions) Respiratory: other (Coarse breath sounds bilaterally, no wheezing) Cardiovascular: irregular rhythm (S1-S2 heard) Gastrointestinal: soft, non-tender, bowel sounds Extremities: edema (Trace) Labs Result Diagram: 07/07/18 1521 07/07/18 1521 Results 24hrs Laboratory Tests Test 07/07/18 15:21 07/07/18 19:05 White Blood Count 14.6 H Red Blood Count 3.66 #L Hemoglobin 10.7 #L Hematocrit 33.4 #L Mean Corpuscular Volume 91.3 Mean Corpuscular Hemoglobin 29.2 Mean Corpuscular Hemoglobin Concent 32.0 Red Cell Distribution Width 14.9 H Platelet Count 409 # Mean Platelet Volume 9.8 Immature Granulocytes % 5.500 H Neutrophils % Segmented Neutrophils % (Manual) 89 H Band Neutrophils % (Manual) 2 Lymphocytes % Lymphocytes % (Manual) 5 L Monocytes % Monocytes % (Manual) 2 Eosinophils % Basophils % Metamyelocytes % (manual) 1 H Promyelocytes % (Manual) 1 H Nucleated Red Blood Cells % 0.0 Immature Granulocytes # 0.810 H Neutrophils # Neutrophils # (Manual) 13.0 H Band Neutrophils # 0.2 Lymphocytes (Manual) 0.7 L Lymphocytes # Monocytes # Monocytes # (Manual) 0.2 L Eosinophils # Basophils # Metamyelocytes # 0.1 H Promyelocytes # 0.1 H Nucleated Red Blood Cells # Platelet Estimate NORMAL Polychromasia 3+ Poikilocytosis 2+ Anisocytosis 1+ Sodium Level 137 Potassium Level 4.3 Chloride Level 109 Carbon Dioxide Level 21 Anion Gap 7 Blood Urea Nitrogen 10 Creatinine 0.59 L Est Glomerular Filtrat Rate mL/min > 60 Glucose Level 113 Calcium Level 8.3 L Urine Color BRIGIDA Urine Clarity SLIGHTLY CLOUDY A Urine pH 6.0 Urine Specific [place] 1.014 Urine Ketones NEGATIVE Urine Nitrite NEGATIVE Urine Bilirubin NEGATIVE Urine Urobilinogen 2+ H Urine Leukocyte Esterase NEGATIVE Urine Microscopic RBC > 182 H Urine Microscopic WBC 15 H Urine Bacteria FEW A Urine Hemoglobin 3+ H Urine Glucose NEGATIVE Urine Total Protein NEGATIVE Medications Medications Current Medications IV Flush (NS 3 ml) 3 ml PER PROTOCOL IV ; Start 06/30/18 at 15:00 Ondansetron HCl (Zofran Inj) 4 mg Q6H PRN IV NAUSEA/VOMITING; Start 06/30/18 at 15:00 Acetaminophen/ Hydrocodone Bitart ([place] (5/325)) 1 tab Q6H PRN PO .MOD PAIN 4- 6 Last administered on 06/30/18at 20:09; Admin Dose 1 TAB; Start 06/30/18 at 15:00 Morphine Sulfate (morphine) 2 mg Q4H PRN IV .SEVERE PAIN 7-10; Start 06/30/18 at 15:00 Docusate Sodium (Colace) 100 mg Q12H PRN PO .CONSTIPATION; Start 06/30/18 at 15:00 Zolpidem Tartrate (Ambien) 5 mg QHS PRN PO .INSOMNIA; Start 06/30/18 at 15:00 Acetaminophen (Tylenol Tab) 650 mg Q6H PRN PO PAIN LEVEL 1-3 OR FEVER Last administered on 06/30/18at 17:25; Admin Dose 650 MG; Start 06/30/18 at 15:00 Ascorbic Acid (Vitamin C) 500 mg DAILY PO Last administered on 07/08/18at 08:54; Admin Dose 500 MG; Start 07/01/18 at 09:00 Diltiazem HCl (Cardizem) 30 mg TID PO Last administered on 07/07/18 14:36; A dmin Dose 30 MG; Start 06/30/18 at 21:00 Lactobacillus Acidophilus/ Rhamnosus (Culturelle) 1 cap BID PO Last administered on 07/08/18 08:53; Admin Dose 1 CAP; Start 06/30/18 at 21:00 Mirtazapine (Remeron) 15 mg HS PO Last administered on 07/06/18at 20:30; Admin Dose 15 MG; Start 06/30/18 at 21:00 Multivitamins Therapeutic (Theragran) 1 tab DAILY PO Last administered on 07/08/18 08:53; Admin Dose 1 TAB; Start 07/01/18 at 09:00 Pantoprazole (Protonix Tab) 40 mg DAILY PO Last administered on 07/08/18 08:54; Admin Dose 40 MG; Start 07/01/18 at 09:00 Zinc Sulfate (Zinc Sulfate) 220 mg DAILY PO Last administered on 07/08/18 08:53; Admin Dose 220 MG; Start 07/01/18 at 09:00 Enoxaparin Sodium (Lovenox) 40 mg DAILY SC Last administered on 07/08/18 09:01; Admin Dose 40 MG; Start 07/01/18 at 09:00 Collagenase (Santyl) 1 applic BID TOP Last administered on 07/08/18 08:53; Admin Dose 1 APPLIC; Start 07/04/18 at 14:30 Aspirin (Aspirin) 81 mg DAILY PO Last administered on 07/08/18 08:53; Admin Dose 81 MG; Start 07/05/18 at 09:00 Folic Acid (Folic Acid) 1 mg DAILY PO Last administered on 07/08/18 08:53; Admin Dose 1 MG; Start 07/05/18 at 09:00 Vancomycin HCl (Vanco Iv Per Pharmacy) VANCOMYCIN PER PHARMACY PER PROTOCOL XX ; Start 07/07/18 at 17:00 Vancomycin/Sodium Chloride 250 ml @ 125 mls/hr Q12H IVPB ; Start 07/08/18 at 12:00 Miscellaneous Information (*Rx Drug Level Order Reminder*) VANCOMYCIN TROUGH AT 1,100 1100 ONCE XX ; Start 07/09/18 at 11:00; Stop 07/09/18 at 11:01 Charan Cottrell DO July 08, 2018 11:48
[2018-07-08] MEDS: VANCOMYCIN 750 MG (PMX) 250 ML IVPB SCH ×2 (11:55→23:58)
--- NOTE | 2018-07-08 12:31 | PN ---
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 Echo shows mitral valve vegetation. Cultures not clear with linezolid so changed to vancomycin - CT C/A/P shows no metastatic infection - Abx per ID - Surveillance cultures until confirmed negative Chronic encephelopathy: - stable Tube feeds for now as not taking much PO Result Diagram: 07/07/18 1521 07/07/18 1521 Results 24hrs Laboratory Tests Test 07/07/18 15:21 07/07/18 19:05 White Blood Count 14.6 H Red Blood Count 3.66 #L Hemoglobin 10.7 #L Hematocrit 33.4 #L Mean Corpuscular Volume 91.3 Mean Corpuscular Hemoglobin 29.2 Mean Corpuscular Hemoglobin Concent 32.0 Red Cell Distribution Width 14.9 H Platelet Count 409 # Mean Platelet Volume 9.8 Immature Granulocytes % 5.500 H Neutrophils % Segmented Neutrophils % (Manual) 89 H Band Neutrophils % (Manual) 2 Lymphocytes % Lymphocytes % (Manual) 5 L Monocytes % Monocytes % (Manual) 2 Eosinophils % Basophils % Metamyelocytes % (manual) 1 H Promyelocytes % (Manual) 1 H Nucleated Red Blood Cells % 0.0 Immature Granulocytes # 0.810 H Neutrophils # Neutrophils # (Manual) 13.0 H Band Neutrophils # 0.2 Lymphocytes (Manual) 0.7 L Lymphocytes # Monocytes # Monocytes # (Manual) 0.2 L Eosinophils # Basophils # Metamyelocytes # 0.1 H Promyelocytes # 0.1 H Nucleated Red Blood Cells # Platelet Estimate NORMAL Polychromasia 3+ Poikilocytosis 2+ Anisocytosis 1+ Sodium Level 137 Potassium Level 4.3 Chloride Level 109 Carbon Dioxide Level 21 Anion Gap 7 Blood Urea Nitrogen 10 Creatinine 0.59 L Est Glomerular Filtrat Rate mL/min > 60 Glucose Level 113 Calcium Level 8.3 L Urine Color BRIGIDA Urine Clarity SLIGHTLY CLOUDY A Urine pH 6.0 Urine Specific [place] 1.014 Urine Ketones NEGATIVE Urine Nitrite NEGATIVE Urine Bilirubin NEGATIVE Urine Urobilinogen 2+ H Urine Leukocyte Esterase NEGATIVE Urine Microscopic RBC > 182 H Urine Microscopic WBC 15 H Urine Bacteria FEW A Urine Hemoglobin 3+ H Urine Glucose NEGATIVE Urine Total Protein NEGATIVE Subjective 24 Hr Interval Summary Free Text/Dictation Repeat echo reveals MV vegetation consistent with endocarditis Abx changed to vancomycin Imaging wtihout metastatic infection - a bit overloaded Exam/Review of Systems Exam Vitals Vital Signs Date Temp Pulse Resp B/P (MAP) Pulse Ox O2 O2 Flow FiO2 Time Delivery Rate 07/08/18 97.7 80 20 99/50 (66) 96 Nasal 11:13 Cannula 07/08/18 2.0 07:46 Intake and Output 07/07/18 07/07/18 07/08/18 1515:00 23:00 07:00 IntakeIntake Total 200 ml OutputOutput Total 1200 ml 550 ml BalanceBalance -1000 ml -550 ml Results Results 24hrs Laboratory Tests Test 07/07/18 15:21 07/07/18 19:05 White Blood Count 14.6 H Red Blood Count 3.66 #L Hemoglobin 10.7 #L Hematocrit 33.4 #L Mean Corpuscular Volume 91.3 Mean Corpuscular Hemoglobin 29.2 Mean Corpuscular Hemoglobin Concent 32.0 Red Cell Distribution Width 14.9 H Platelet Count 409 # Mean Platelet Volume 9.8 Immature Granulocytes % 5.500 H Neutrophils % Segmented Neutrophils % (Manual) 89 H Band Neutrophils % (Manual) 2 Lymphocytes % Lymphocytes % (Manual) 5 L Monocytes % Monocytes % (Manual) 2 Eosinophils % Basophils % Metamyelocytes % (manual) 1 H Promyelocytes % (Manual) 1 H Nucleated Red Blood Cells % 0.0 Immature Granulocytes # 0.810 H Neutrophils # Neutrophils # (Manual) 13.0 H Band Neutrophils # 0.2 Lymphocytes (Manual) 0.7 L Lymphocytes # Monocytes # Monocytes # (Manual) 0.2 L Eosinophils # Basophils # Metamyelocytes # 0.1 H Promyelocytes # 0.1 H Nucleated Red Blood Cells # Platelet Estimate NORMAL Polychromasia 3+ Poikilocytosis 2+ Anisocytosis 1+ Sodium Level 137 Potassium Level 4.3 Chloride Level 109 Carbon Dioxide Level 21 Anion Gap 7 Blood Urea Nitrogen 10 Creatinine 0.59 L Est Glomerular Filtrat Rate mL/min > 60 Glucose Level 113 Calcium Level 8.3 L Urine Color BRIGIDA Urine Clarity SLIGHTLY CLOUDY A Urine pH 6.0 Urine Specific [place] 1.014 Urine Ketones NEGATIVE Urine Nitrite NEGATIVE Urine Bilirubin NEGATIVE Urine Urobilinogen 2+ H Urine Leukocyte Esterase NEGATIVE Urine Microscopic RBC > 182 H Urine Microscopic WBC 15 H Urine Bacteria FEW A Urine Hemoglobin 3+ H Urine Glucose NEGATIVE Urine Total Protein NEGATIVE Medications Medication Current Medications IV Flush (NS 3 ml) 3 ml PER PROTOCOL IV ; Start 06/30/18 at 15:00 Ondansetron HCl (Zofran Inj) 4 mg Q6H PRN IV NAUSEA/VOMITING; Start 06/30/18 at 15:00 Acetaminophen/ Hydrocodone Bitart ([place] (5/325)) 1 tab Q6H PRN PO .MOD PAIN 4- 6 Last administered on 06/30/18at 20:09; Admin Dose 1 TAB; Start 06/30/18 at 15:00 Morphine Sulfate (morphine) 2 mg Q4H PRN IV .SEVERE PAIN 7-10; Start 06/30/18 at 15:00 Docusate Sodium (Colace) 100 mg Q12H PRN PO .CONSTIPATION; Start 06/30/18 at 15:00 Zolpidem Tartrate (Ambien) 5 mg QHS PRN PO .INSOMNIA; Start 06/30/18 at 15:00 Acetaminophen (Tylenol Tab) 650 mg Q6H PRN PO PAIN LEVEL 1-3 OR FEVER Last administered on 06/30/18at 17:25; Admin Dose 650 MG; Start 06/30/18 at 15:00 Ascorbic Acid (Vitamin C) 500 mg DAILY PO Last administered on 07/08/18at 08:54; Admin Dose 500 MG; Start 07/01/18 at 09:00 Diltiazem HCl (Cardizem) 30 mg TID PO Last administered on 07/07/18at 14:36; Admin Dose 30 MG; Start 06/30/18 at 21:00 Lactobacillus Acidophilus/ Rhamnosus (Culturelle) 1 cap BID PO Last administered on 07/08/18at 08:53; Admin Dose 1 CAP; Start 06/30/18 at 21:00 Mirtazapine (Remeron) 15 mg HS PO Last administered on 07/06/18 20:30; Admin Dose 15 MG; Start 06/30/18 at 21:00 Multivitamins Therapeutic (Theragran) 1 tab DAILY PO Last administered on 07/08/18 08:53; Admin Dose 1 TAB; Start 07/01/18 at 09:00 Pantoprazole (Protonix Tab) 40 mg DAILY PO Last administered on 07/08/18 08:54; Admin Dose 40 MG; Start 07/01/18 at 09:00 Zinc Sulfate (Zinc Sulfate) 220 mg DAILY PO Last administered on 07/08/18 08:53; Admin Dose 220 MG; Start 07/01/18 at 09:00 Enoxaparin Sodium (Lovenox) 40 mg DAILY SC Last administered on 07/08/18 09:01; Admin Dose 40 MG; Start 07/01/18 at 09:00 Collagenase (Santyl) 1 applic BID TOP Last administered on 07/08/18 08:53; Admin Dose 1 APPLIC; Start 07/04/18 at 14:30 Aspirin (Aspirin) 81 mg DAILY PO Last administered on 07/08/18 08:53; Admin Dose 81 MG; Start 07/05/18 at 09:00 Folic Acid (Folic Acid) 1 mg DAILY PO Last administered on 07/08/18 08:53; Admin Dose 1 MG; Start 07/05/18 at 09:00 Vancomycin HCl (Vanco Iv Per Pharmacy) VANCOMYCIN PER PHARMACY PER PROTOCOL XX ; Start 07/07/18 at 17:00 Vancomycin/Sodium Chloride 250 ml @ 125 mls/hr Q12H IVPB Last administered on 07/08/18 11:55; Admin Dose 125 MLS/HR; Start 07/08/18 at 12:00 Miscellaneous Information (*Rx Drug Level Order Reminder*) VANCOMYCIN TROUGH AT 1,100 1100 ONCE XX ; Start 07/09/18 at 11:00; Stop 07/09/18 at 11:01 DEBBIE GALLEGOS MD July 08, 2018 12:31
--- NOTE | 2018-07-08 13:17 | CONS ---
Assessment/Plan Assessment/Plan Hospital Course (Demo Recall) Noncommunicative in no distress no fevers overnight. Repeat blood cultures growing MRSA. Microbiology: Blood cultures since admission grew MRSA, urine culture grew VRE E. coli ESBL and Enterobacter cloaca. Repeat blood cultures growing MRSA. Antimicrobials: Vanco Indwelling's: Jimenez, NGT Physical examination: Fragile elderly man who is in no distress. Head atraumatic normocephalic neck is supple chest rise symmetrical breath sounds diminished bases. Heart: S1-S2. Abdomen soft bowel sounds present. Extremities without cyanosis Assessment: 1. 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 S/p polymicrobial UTI 3. Acute on chronic encephalopathy 4. Cachexia 5. Atrial fibrillation status post RVR Plan: Clinically unchanged, repeat urine cx neg, continue antibiotics, aspiration precautions, monitor renal f-n, cardiology rec-s Consultation Date/Type/Reason Admit Date/Time June 30, 2018 at 08:59 Initial Consult Date 07/03/18 Type of Consult id Requesting Provider: DEBBIE GALLEGOS MD Date/Time of Note DATE: 07/08/18 TIME: 13:16 Exam/Review of Systems Exam Vitals Vital Signs Date Temp Pulse Resp B/P (MAP) Pulse Ox O2 O2 Flow FiO2 Time Delivery Rate 07/08/18 71 13:05 07/08/18 97.7 20 99/50 (66) 96 Nasal 11:13 Cannula 07/08/18 2.0 07:46 Intake and Output 07/07/18 07/07/18 07/08/18 1515:00 23:00 07:00 IntakeIntake Total 200 ml OutputOutput Total 1200 ml 550 ml BalanceBalance -1000 ml -550 ml Results Result Diagram: 07/07/18 1521 07/07/18 1521 Results 24hrs Laboratory Tests Test 07/07/18 15:21 07/07/18 19:05 White Blood Count 14.6 H Red Blood Count 3.66 #L Hemoglobin 10.7 #L Hematocrit 33.4 #L Mean Corpuscular Volume 91.3 Mean Corpuscular Hemoglobin 29.2 Mean Corpuscular Hemoglobin Concent 32.0 Red Cell Distribution Width 14.9 H Platelet Count 409 # Mean Platelet Volume 9.8 Immature Granulocytes % 5.500 H Neutrophils % Segmented Neutrophils % (Manual) 89 H Band Neutrophils % (Manual) 2 Lymphocytes % Lymphocytes % (Manual) 5 L Monocytes % Monocytes % (Manual) 2 Eosinophils % Basophils % Metamyelocytes % (manual) 1 H Promyelocytes % (Manual) 1 H Nucleated Red Blood Cells % 0.0 Immature Granulocytes # 0.810 H Neutrophils # Neutrophils # (Manual) 13.0 H Band Neutrophils # 0.2 Lymphocytes (Manual) 0.7 L Lymphocytes # Monocytes # Monocytes # (Manual) 0.2 L Eosinophils # Basophils # Metamyelocytes # 0.1 H Promyelocytes # 0.1 H Nucleated Red Blood Cells # Platelet Estimate NORMAL Polychromasia 3+ Poikilocytosis 2+ Anisocytosis 1+ Sodium Level 137 Potassium Level 4.3 Chloride Level 109 Carbon Dioxide Level 21 Anion Gap 7 Blood Urea Nitrogen 10 Creatinine 0.59 L Est Glomerular Filtrat Rate mL/min > 60 Glucose Level 113 Calcium Level 8.3 L Urine Color BRIGIDA Urine Clarity SLIGHTLY CLOUDY A Urine pH 6.0 Urine Specific [place] 1.014 Urine Ketones NEGATIVE Urine Nitrite NEGATIVE Urine Bilirubin NEGATIVE Urine Urobilinogen 2+ H Urine Leukocyte Esterase NEGATIVE Urine Microscopic RBC > 182 H Urine Microscopic WBC 15 H Urine Bacteria FEW A Urine Hemoglobin 3+ H Urine Glucose NEGATIVE Urine Total Protein NEGATIVE Medications Medication Current Medications IV Flush (NS 3 ml) 3 ml PER PROTOCOL IV ; Start 06/30/18 at 15:00 Ondansetron HCl (Zofran Inj) 4 mg Q6H PRN IV NAUSEA/VOMITING; Start 06/30/18 at 15:00 Acetaminophen/ Hydrocodone Bitart ([place] (5/325)) 1 tab Q6H PRN PO .MOD PAIN 4- 6 Last administered on 06/30/18at 20:09; Admin Dose 1 TAB; Start 06/30/18 at 15:00 Morphine Sulfate (morphine) 2 mg Q4H PRN IV .SEVERE PAIN 7-10; Start 06/30/18 at 15:00 Docusate Sodium (Colace) 100 mg Q12H PRN PO .CONSTIPATION; Start 06/30/18 at 15:00 Zolpidem Tartrate (Ambien) 5 mg QHS PRN PO .INSOMNIA; Start 06/30/18 at 15:00 Acetaminophen (Tylenol Tab) 650 mg Q6H PRN PO PAIN LEVEL 1-3 OR FEVER Last administered on 06/30/18at 17:25; Admin Dose 650 MG; Start 06/30/18 at 15:00 Ascorbic Acid (Vitamin C) 500 mg DAILY PO Last administered on 07/08/18 08:54; Admin Dose 500 MG; Start 07/01/18 at 09:00 Diltiazem HCl (Cardizem) 30 mg TID PO Last administered on 07/07/18 14:36; Admin Dose 30 MG; Start 06/30/18 at 21:00 Lactobacillus Acidophilus/ Rhamnosus (Culturelle) 1 cap BID PO Last administered on 07/08/18 08:53; Admin Dose 1 CAP; Start 06/30/18 at 21:00 Mirtazapine (Remeron) 15 mg HS PO Last administered on 07/06/18 20:30; Admin Dose 15 MG; Start 06/30/18 at 21:00 Multivitamins Therapeutic (Theragran) 1 tab DAILY PO Last administered on 07/08/18 08:53; Admin Dose 1 TAB; Start 07/01/18 at 09:00 Pantoprazole (Protonix Tab) 40 mg DAILY PO Last administered on 07/08/18 0 8:54; Admin Dose 40 MG; Start 07/01/18 at 09:00 Zinc Sulfate (Zinc Sulfate) 220 mg DAILY PO Last administered on 07/08/18 08:53; Admin Dose 220 MG; Start 07/01/18 at 09:00 Enoxaparin Sodium (Lovenox) 40 mg DAILY SC Last administered on 07/08/18 09:01; Admin Dose 40 MG; Start 07/01/18 at 09:00 Collagenase (Santyl) 1 applic BID TOP Last administered on 07/08/18 08:53; Admin Dose 1 APPLIC; Start 07/04/18 at 14:30 Aspirin (Aspirin) 81 mg DAILY PO Last administered on 07/08/18 08:53; Admin Do se 81 MG; Start 07/05/18 at 09:00 Folic Acid (Folic Acid) 1 mg DAILY PO Last administered on 07/08/18 08:53; Admin Dose 1 MG; Start 07/05/18 at 09:00 Vancomycin HCl (Vanco Iv Per Pharmacy) VANCOMYCIN PER PHARMACY PER PROTOCOL XX ; Start 07/07/18 at 17:00 Vancomycin/Sodium Chloride 250 ml @ 125 mls/hr Q12H IVPB Last administered on 5/17/19at 11:55; Admin Dose 125 MLS/HR; Start 07/08/18 at 12:00 Miscellaneous Information (*Rx Drug Level Order Reminder*) VANCOMYCIN TROUGH AT 1,100 1100 ONCE XX ; Start 07/09/18 at 11:00; Stop 07/09/18 at 11:01 SANDER WILL NP July 08, 2018 13:17
--- NOTE | 2018-07-08 16:09 | CONS ---
Assessment/Plan Assessment/Plan Hospital Course 72 yo M with multiple comorbidities who presents for evaluation of altered mental status. A HCT was obtained and notable for ventriculomegaly and degenerative changes... for which neurology is consulted. The ventriculomegaly is likely chronic, and without acute clinical significance.. LDL 34 P: Cont ASA for secondary stroke prevention; LDL is at goal Recommend repeat neuroimaging for surveillance, as an outpatient [place] as able Limit sedating medications where possible PT/OT/ST as necessary Other management per primary Will follow clinically Consultation Date/Type/Reason Admit Date/Time June 30, 2018 at 08:59 Type of Consult Neurology Reason for Consultation ventriculomegaly Requesting Provider: DEBBIE GALLEGOS MD Date/Time of Note DATE: 07/08/18 TIME: 16:08 24 HR Interval Summary Free Text/Dictation Continues acute care Exam Vital Signs Vitals Vital Signs Date Temp Pulse Resp B/P (MAP) Pulse Ox O2 O2 Flow FiO2 Time Delivery Rate 07/08/18 85 16:03 07/08/18 97.6 20 94/53 (67) 100 Nasal 15:18 Cannula 07/08/18 2.0 07:46 Intake and Output 07/07/18 07/07/18 07/08/18 1515:00 23:00 07:00 IntakeIntake Total 200 ml OutputOutput Total 1200 ml 550 ml BalanceBalance -1000 ml -550 ml JAMES BROWN July 08, 2018 16:09
[2018-07-08] MEDS: MIRTAZAPINE 15 MG TAB PO SCH (21:30)
[2018-07-09] VITALS (9 sets, daily range): BP systolic 92–124; BP diastolic 51–59; PULSE 62–90; RESP 18–22
[2018-07-09] MEDS: COLLAGENASE 5 GM (UD JAR) TOP SCH ×2 (08:35→21:25)
[2018-07-09] MEDS: LACTOBACILLUS RHAMNOSUS CAP PO SCH ×2 (08:35→21:23)
[2018-07-09] MEDS: ASCORBIC ACID 500 MG TAB PO SCH (08:36)
[2018-07-09] MEDS: MULTIVITAMINS THERAPEUTIC TAB PO SCH (08:36)
[2018-07-09] MEDS: FOLIC ACID 1 MG TAB PO SCH (08:36)
[2018-07-09] MEDS: ASPIRIN 81 MG TAB PO SCH (08:36)
[2018-07-09] MEDS: DILTIAZEM 30 MG TAB PO SCH ×3 (08:37→21:25)
--- NOTE | 2018-07-09 08:39 | CONS ---
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 Encephalopathy-improved Plan: 1) Brief NSVT noted 2) Magnesium levels stable Consultation Date/Type/Reason Admit Date/Time June 30, 2018 at 08:59 Initial Consult Date 07/03/18 Type of Consult Cardiology Requesting Provider: DEBBIE GALLEGOS MD Date/Time of Note DATE: 07/09/18 TIME: 08:38 24 HR Interval Summary Free Text/Dictation fatigued, no chest pain, no sob, no distress Detailed Summary Respiratory: no complaints Cardiovascular: no complaints Gastrointestinal: no complaints Musculoskeletal: no complaints Skin: no complaints Neurologic: no complaints Exam/Review of Systems Vital Signs Vitals Vital Signs Date Temp Pulse Resp B/P (MAP) Pulse Ox O2 O2 Flow FiO2 Time Delivery Rate 07/09/18 97.9 90 20 92/53 (66) 97 Nasal 08:24 Cannula 07/08/18 2.0 20:00 Intake and Output 07/08/18 07/08/18 07/09/18 1515:00 23:00 07:00 IntakeIntake Total 600 ml 1130 ml OutputOutput Total 1300 ml 600 ml BalanceBalance -700 ml 530 ml Exam Constitutional: frail Head: normocephalic, atraumatic Neck: supple Respiratory: clear to auscultation Cardiovascular: irregular rhythm Gastrointestinal: soft Musculoskeletal: nl extremities to inspection Extremities: normal pulses Labs Result Diagram: 07/07/18 1521 07/07/18 1521 Medications Medications Current Medications IV Flush (NS 3 ml) 3 ml PER PROTOCOL IV ; Start 06/30/18 at 15:00 Ondansetron HCl (Zofran Inj) 4 mg Q6H PRN IV NAUSEA/VOMITING; Start 06/30/18 at 15:00 Acetaminophen/ Hydrocodone Bitart ([place] (5/325)) 1 tab Q6H PRN PO .MOD PAIN 4-6 Last administered on 06/30/18at 20:09; Admin Dose 1 TAB; Start 06/30/18 at 15:00 Morphine Sulfate (morphine) 2 mg Q4H PRN IV .SEVERE PAIN 7-10; Start 06/30/18 at 15:00 Docusate Sodium (Colace) 100 mg Q12H PRN PO .CONSTIPATION; Start 06/30/18 at 15:00 Zolpidem Tartrate (Ambien) 5 mg QHS PRN PO .INSOMNIA; Start 06/30/18 at 15:00 Acetaminophen (Tylenol Tab) 650 mg Q6H PRN PO PAIN LEVEL 1-3 OR FEVER Last administered on 06/30/18 17:25; Admin Dose 650 MG; Start 06/30/18 at 15:00 Ascorbic Acid (Vitamin C) 500 mg DAILY PO Last administered on 07/08/18 08:54; Admin Dose 500 MG; Start 07/01/18 at 09:00 Diltiazem HCl (Cardizem) 30 mg TID PO Last administered on 07/07/18 14:36; Admin Dose 30 MG; Start 06/30/18 at 21:00 Lactobacillus Acidophilus/ Rhamnosus (Culturelle) 1 cap BID PO Last administered on 07/08/18 21:30; Admin Dose 1 CAP; Start 06/30/18 at 21:00 Mirtazapine (Remeron) 15 mg HS PO Last administered on 07/08/18 21:30; Admin Dose 15 MG; Start 06/30/18 at 21:00 Multivitamins Therapeutic (Theragran) 1 tab DAILY PO Last administered on 07/08/18 08:53; Admin Dose 1 TAB; Start 07/01/18 at 09:00 Pantoprazole (Protonix Tab) 40 mg DAILY PO Last administered on 07/08/18 08:54; Admin Dose 40 MG; Start 07/01/18 at 09:00 Zinc Sulfate (Zinc Sulfate) 220 mg DAILY PO Last administered on 07/08/18 08:53; Admin Dose 220 MG; Start 07/01/18 at 09:00 Enoxaparin Sodium (Lovenox) 40 mg DAILY SC Last administered on 07/08/18 09:01; Admin Dose 40 MG; Start 07/01/18 at 09:00 Collagenase (Santyl) 1 applic BID TOP Last administered on 07/08/18 21:30; Admin Dose 1 APPLIC; Start 07/04/18 at 14:30 Aspirin (Aspirin) 81 mg DAILY PO Last administered on 07/08/18 08:53; Admin Dose 81 MG; Start 07/05/18 at 09:00 Folic Acid (Folic Acid) 1 mg DAILY PO Last administered on 5/17/19at 08:53; Adm in Dose 1 MG; Start 07/05/18 at 09:00 Vancomycin HCl (Vanco Iv Per Pharmacy) VANCOMYCIN PER PHARMACY PER PROTOCOL XX ; Start 07/07/18 at 17:00 Vancomycin/Sodium Chloride 250 ml @ 125 mls/hr Q12H IVPB Last administered on 07/08/18at 23:58; Admin Dose 125 MLS/HR; Start 07/08/18 at 12:00 Miscellaneous Information (*Rx Drug Level Order Reminder*) VANCOMYCIN TROUGH AT 1,100 1100 ONCE XX ; Start 07/09/18 at 11:00; Stop 07/09/18 at 11:01 WILMAR VÁZQUEZ MD July 09, 2018 08:39
[2018-07-09] MEDS: ENOXAPARIN 40 MG/0.4 ML SYG SC SCH (08:40)
[2018-07-09] MEDS: BALSAM PERU/CASTOR OIL 60 GM TUBE TOP SCH ×2 (08:56→21:25)
[2018-07-09] MEDS: PANTOPRAZOLE (EC) 40 MG TAB PO SCH (08:57)
[2018-07-09] MEDS: ZINC SULFATE 220 MG CAP PO SCH (08:57)
[2018-07-09] MEDS: VANCOMYCIN 750 MG (PMX) 250 ML IVPB SCH (12:00)
--- NOTE | 2018-07-09 14:59 | PN ---
Date/Time of Note Date/Time of Note DATE: 07/09/18 TIME: 14:58 Assessment/Plan VTE Prophylaxis Risk score (from Nsg)>0 risk: 4 SCD applied (from Nsg): Yes Pharmacological prophylaxis: heparin Lines/Catheters IV Catheter Type (from Nrsg): Saline Lock Urinary Cath still in place: Yes Reason Cath still needed: urinary retention Assessment/Plan Hospital Course EXAM: Lethargic Responsive to noxious stimluil RRR CTAB Soft nt nd A/P: 72 yo male with h/o A FIb, nursning home resident with likely dementia who presents with sepsis and persistent MRSA bacteremia of unclear source MRSA bactermia form MV endocarditis - Persistent. Echo shows mitral valve vegetation. Cultures not clear with linezolid so changed to vancomycin 07/07 - CT C/A/P shows no metastatic infection - Abx per ID - Surveillance cultures until confirmed negative Chronic encephelopathy: - stable Tube feeds for now as not taking much PO. We will need to assess [employer] need for enteral nutrition Result Diagram: 07/07/18 1521 07/07/18 1521 Results 24hrs Laboratory Tests Test 07/09/18 10:55 Vancomycin Level Trough 12.9 Subjective 24 Hr Interval Summary Free Text/Dictation NG tube was placed and tube feeds started Continues on vancomycin Exam/Review of Systems Exam Vitals Vital Signs Date Temp Pulse Resp B/P (MAP) Pulse Ox O2 O2 Flow FiO2 Time Delivery Rate 07/09/18 98.6 89 18 109/51 100 Nasal 12:11 (70) Cannula 07/09/18 2.0 08:00 Intake and Output 07/08/18 07/08/18 07/09/18 1414:59 22:59 06:59 IntakeIntake Total 600 ml 1130 ml OutputOutput Total 1300 ml 600 ml BalanceBalance -700 ml 530 ml Results Results 24hrs Laboratory Tests Test 07/09/18 10:55 Vancomycin Level Trough 12.9 Medications Medication Current Medications IV Flush (NS 3 ml) 3 ml PER PROTOCOL IV ; Start 06/30/18 at 15:00 Ondansetron HCl (Zofran Inj) 4 mg Q6H PRN IV NAUSEA/VOMITING; Start 06/30/18 at 15:00 Acetaminophen/ Hydrocodone Bitart ([place] (5/325)) 1 tab Q6H PRN PO .MOD PAIN 4- 6 Last administered on 06/30/18 20:09; Admin Dose 1 TAB; Start 06/30/18 at 15:00 Morphine Sulfate (morphine) 2 mg Q4H PRN IV .SEVERE PAIN 7-10; Start 06/30/18 at 15:00 Docusate Sodium (Colace) 100 mg Q12H PRN PO .CONSTIPATION; Start 06/30/18 at 15:00 Zolpidem Tartrate (Ambien) 5 mg QHS PRN PO .INSOMNIA; Start 06/30/18 at 15:00 Acetaminophen (Tylenol Tab) 650 mg Q6H PRN PO PAIN LEVEL 1-3 OR FEVER Last administered on 06/30/18 17:25; Admin Dose 650 MG; Start 06/30/18 at 15:00 Ascorbic Acid (Vitamin C) 500 mg DAILY PO Last administered on 07/09/18 08:36; Admin Dose 500 MG; Start 07/01/18 at 09:00 Diltiazem HCl (Cardizem) 30 mg TID PO Last administered on 07/09/18 13:56; Admin Dose 30 MG; Start 06/30/18 at 21:00 Lactobacillus Acidophilus/ Rhamnosus (Culturelle) 1 cap BID PO Last administer ed on 07/09/18 08:35; Admin Dose 1 CAP; Start 06/30/18 at 21:00 Mirtazapine (Remeron) 15 mg HS PO Last administered on 07/08/18 21:30; Admin Dose 15 MG; Start 06/30/18 at 21:00 Multivitamins Therapeutic (Theragran) 1 tab DAILY PO Last administered on 07/09/18 08:36; Admin Dose 1 TAB; Start 07/01/18 at 09:00 Pantoprazole (Protonix Tab) 40 mg DAILY PO Last administered on 07/09/18 08:57; Admin Dose 40 MG; Start 07/01/18 at 09:00 Zinc Sulfate (Zinc Sulfate) 220 mg DAILY PO Last administered on 07/09/18 08:57; Admin Dose 220 MG; Start 07/01/18 at 09:00 Enoxaparin Sodium (Lovenox) 40 mg DAILY SC Last administered on 07/09/18at 08:40; Admin Dose 40 MG; Start 07/01/18 at 09:00 Collagenase (Santyl) 1 applic BID TOP Last administered on 07/09/18 08:35; Admin Dose 1 APPLIC; Start 07/04/18 at 14:30 Aspirin (Aspirin) 81 mg DAILY PO Last administered on 07/09/18 08:36; Admin Dose 81 MG; Start 07/05/18 at 09:00 Folic Acid (Folic Acid) 1 mg DAILY PO Last administered on 07/09/18 08:36; A dmin Dose 1 MG; Start 07/05/18 at 09:00 Vancomycin HCl (Vanco Iv Per Pharmacy) VANCOMYCIN PER PHARMACY PER PROTOCOL XX ; Start 07/07/18 at 17:00 Vancomycin/Sodium Chloride 250 ml @ 125 mls/hr Q12H IVPB Last administered on 07/09/18 12:00; Admin Dose 125 MLS/HR; Start 07/08/18 at 12:00 DEBBIE GALLEGOS MD July 09, 2018 14:59
--- NOTE | 2018-07-09 15:13 | CONS ---
Assessment/Plan Assessment/Plan Hospital Course (Demo Recall) Awake, in no distress no fevers overnight. Microbiology: Blood cultures since admission grew MRSA, urine culture grew VRE E. coli ESBL and Enterobacter cloaca. Repeat blood cultures negative Antimicrobials: Vanco Indwelling's: Jimenez, NGT Physical examination: Fragile elderly man who is in no distress. Head atraumatic normocephalic neck is supple chest rise symmetrical breath sounds diminished bases. Heart: S1-S2. Abdomen soft bowel sounds present. Extremities without cyanosis Assessment: 1. 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 S/p polymicrobial UTI 3. Acute on chronic encephalopathy 4. Cachexia 5. Atrial fibrillation status post RVR Plan: Clinically unchanged, more awake today, continue antibiotics, aspiration precautions, monitor renal f-n, cardiology rec-s. Anticipate to keep on IV Vanco for 6 weeks Consultation Date/Type/Reason Admit Date/Time June 30, 2018 at 08:59 Initial Consult Date 07/03/18 Type of Consult id Requesting Provider: DEBBIE GALLEGOS MD Date/Time of Note DATE: 07/09/18 TIME: 15:12 Exam/Review of Systems Exam Vitals Vital Signs Date Temp Pulse Resp B/P (MAP) Pulse Ox O2 O2 Flow FiO2 Time Delivery Rate 07/09/18 98.6 89 18 109/51 100 Nasal 12:11 (70) Cannula 07/09/18 2.0 08:00 Intake and Output 07/08/18 07/08/18 07/09/18 1515:00 23:00 07:00 IntakeIntake Total 600 ml 1130 ml OutputOutput Total 1300 ml 600 ml BalanceBalance -700 ml 530 ml Results Result Diagram: 07/07/18 1521 07/07/18 1521 Results 24hrs Laboratory Tests Test 07/09/18 10:55 Vancomycin Level Trough 12.9 Medications Medication Current Medications IV Flush (NS 3 ml) 3 ml PER PROTOCOL IV ; Start 06/30/18 at 15:00 Ondansetron HCl (Zofran Inj) 4 mg Q6H PRN IV NAUSEA/VOMITING; Start 06/30/18 at 15:00 Acetaminophen/ Hydrocodone Bitart ([place] (5/325)) 1 tab Q6H PRN PO .MOD PAIN 4- 6 Last administered on 06/30/18at 20:09; Admin Dose 1 TAB; Start 06/30/18 at 15:00 Morphine Sulfate (morphine) 2 mg Q4H PRN IV .SEVERE PAIN 7-10; Start 06/30/18 at 15:00 Docusate Sodium (Colace) 100 mg Q12H PRN PO .CONSTIPATION; Start 06/30/18 at 15:00 Zolpidem Tartrate (Ambien) 5 mg QHS PRN PO .INSOMNIA; Start 06/30/18 at 15:00 Acetaminophen (Tylenol Tab) 650 mg Q6H PRN PO PAIN LEVEL 1-3 OR FEVER Last administered on 06/30/18 17:25; Admin Dose 650 MG; Start 06/30/18 at 15:00 Ascorbic Acid (Vitamin C) 500 mg DAILY PO Last administered on 07/09/18 08:36; Admin Dose 500 MG; Start 07/01/18 at 09:00 Diltiazem HCl (Cardizem) 30 mg TID PO Last administered on 07/09/18 13:56; Admin Dose 30 MG; Start 06/30/18 at 21:00 Lactobacillus Acidophilus/ Rhamnosus (Culturelle) 1 cap BID PO Last administered on 07/09/18 08:35; Admin Dose 1 CAP; Start 06/30/18 at 21:00 Mirtazapine (Remeron) 15 mg HS PO Last administered on 07/08/18 21:30; Admin Dose 15 MG; Start 06/30/18 at 21:00 Multivitamins Therapeutic (Theragran) 1 tab DAILY PO Last administered on 07/09/18 08:36; Admin Dose 1 TAB; Start 07/01/18 at 09:00 Pantoprazole (Protonix Tab) 40 mg DAILY PO Last administered on 07/09/18 08:57; Admin Dose 40 MG; Start 07/01/18 at 09:00 Zinc Sulfate (Zinc Sulfate) 220 mg DAILY PO Last administered on 07/09/18 08:57; Admin Dose 220 MG; Start 07/01/18 at 09:00 Enoxaparin Sodium (Lovenox) 40 mg DAILY SC Last administered on 07/09/18 08:40; Admin Dose 40 MG; Start 07/01/18 at 09:00 Collagenase (Santyl) 1 applic BID TOP Last administered on 07/09/18 08:35; Admin Dose 1 APPLIC; Start 07/04/18 at 14:30 Aspirin (Aspirin) 81 mg DAILY PO Last administered on 07/09/18at 08:36; Admin Dose 81 MG; Start 07/05/18 at 09:00 Folic Acid (Folic Acid) 1 mg DAILY PO Last administered on 07/09/18at 08:36; Admin Dose 1 MG; Start 07/05/18 at 09:00 Vancomycin HCl (Vanco Iv Per Pharmacy) VANCOMYCIN PER PHARMACY PER PROTOCOL XX ; Start 07/07/18 at 17:00 Vancomycin/Sodium Chloride 250 ml @ 125 mls/hr Q12H IVPB Last administered on 07/09/18at 12:00; Admin Dose 125 MLS/HR; Start 07/08/18 at 12:00 SANDER WILL NP July 09, 2018 15:13
[2018-07-09] MEDS: MIRTAZAPINE 15 MG TAB PO SCH (21:23)
[2018-07-10] VITALS (9 sets, daily range): BP systolic 120–147; BP diastolic 60–88; PULSE 60–98; RESP 18–20
[2018-07-10] MEDS: VANCOMYCIN 750 MG (PMX) 250 ML IVPB SCH ×3 (02:11→23:55)
[2018-07-10] MEDS: ASPIRIN 81 MG TAB PO SCH (08:54)
[2018-07-10] MEDS: PANTOPRAZOLE (EC) 40 MG TAB PO SCH (08:54)
[2018-07-10] MEDS: LACTOBACILLUS RHAMNOSUS CAP PO SCH ×2 (08:55→20:25)
[2018-07-10] MEDS: ZINC SULFATE 220 MG CAP PO SCH (08:55)
[2018-07-10] MEDS: ASCORBIC ACID 500 MG TAB PO SCH (08:55)
[2018-07-10] MEDS: MULTIVITAMINS THERAPEUTIC TAB PO SCH (08:55)
[2018-07-10] MEDS: FOLIC ACID 1 MG TAB PO SCH (08:55)
[2018-07-10] MEDS: COLLAGENASE 5 GM (UD JAR) TOP SCH ×2 (08:56→20:25)
[2018-07-10] MEDS: BALSAM PERU/CASTOR OIL 60 GM TUBE TOP SCH ×2 (08:56→20:29)
[2018-07-10] MEDS: ENOXAPARIN 40 MG/0.4 ML SYG SC SCH (09:08)
[2018-07-10] MEDS: DILTIAZEM 30 MG TAB PO SCH ×3 (09:20→20:26)
--- NOTE | 2018-07-10 12:15 | CONS ---
Consultation Date/Type/Reason Admit Date/Time June 30, 2018 at 08:59 Initial Consult Date SUBJECTIVE: Pt is awake, altered, afebrile. Pt had low grade fever in AM. VS: stable T: now 98.0. In AM was 99.8 LABS: Reviewed. Microbiology: Blood cultures since admission grew MRSA, urine culture grew VRE E. coli ESBL and Enterobacter cloaca. Repeat blood cultures negative 07/08/18== BLOOD CULTURE Preliminary NO GROWTH AFTER 1 DAY 07/07/18== URINE CULTURE Final NO GROWTH AFTER 48 HOURS Antimicrobials: Vanco Indwelling's: Jimenez, NGT Physical examination: GEN: Fragile elderly man who is in no distress. HENT: Head atraumatic normocephalic, neck is supple PULM: chest rise symmetrical breath sounds, diminished bases. Heart: S1-S2. Abdomen: soft, bowel sounds present. Extremities without cyanosis Assessment: 1. 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 S/p polymicrobial UTI 3. Acute on chronic encephalopathy 4. Cachexia 5. Atrial fibrillation status post RVR Plan: Pt is clinically unchanged. Continue currnet antibiotics. Aspiration precautions. Cardiology rec-s. Anticipate to keep on IV Vanco for 6 weeks. AM labs. Requesting Provider: DEBBIE GALLEGOS MD Date/Time of Note DATE: 07/10/18 TIME: 12:10 Exam/Review of Systems Exam Vitals Vital Signs Date Temp Pulse Resp B/P (MAP) Pulse Ox O2 O2 Flow FiO2 Time Delivery Rate 07/10/18 82 12:01 07/10/18 98.0 20 138/77 97 Nasal 10:56 (97) Cannula 07/09/18 2.0 21:57 Intake and Output 07/09/18 07/09/18 07/10/18 1515:00 23:00 07:00 IntakeIntake Total 180 ml 700 ml 854 ml OutputOutput Total 700 ml 900 ml BalanceBalance 180 ml 0 ml -46 ml Results Result Diagram: 07/07/18 1521 07/10/18 0452 Results 24hrs Laboratory Tests Test 07/10/18 04:52 Blood Urea Nitrogen 12 Creatinine 0.60 L Medications Medication Current Medications IV Flush (NS 3 ml) 3 ml PER PROTOCOL IV ; Start 06/30/18 at 15:00 Ondansetron HCl (Zofran Inj) 4 mg Q6H PRN IV NAUSEA/VOMITING; Start 06/30/18 at 15:00 Acetaminophen/ Hydrocodone Bitart ([place] (5/325)) 1 tab Q6H PRN PO .MOD PAIN 4- 6 Last administered on 06/30/18 20:09; Admin Dose 1 TAB; Start 06/30/18 at 15:00 Morphine Sulfate (morphine) 2 mg Q4H PRN IV .SEVERE PAIN 7-10; Start 06/30/18 at 15:00 Docusate Sodium (Colace) 100 mg Q12H PRN PO .CONSTIPATION; Start 06/30/18 at 15:00 Zolpidem Tartrate (Ambien) 5 mg QHS PRN PO .INSOMNIA; Start 06/30/18 at 15:00 Acetaminophen (Tylenol Tab) 650 mg Q6H PRN PO PAIN LEVEL 1-3 OR FEVER Last administered on 06/30/18 17:25; Admin Dose 650 MG; Start 06/30/18 at 15:00 Ascorbic Acid (Vitamin C) 500 mg DAILY PO Last administered on 07/10/18 08:55; Admin Dose 500 MG; Start 07/01/18 at 09:00 Diltiazem HCl (Cardizem) 30 mg TID PO Last administered on 07/10/18 09:20; Admin Dose 30 MG; Start 06/30/18 at 21:00 Lactobacillus Acidophilus/ Rhamnosus (Culturelle) 1 cap BID PO Last administered on 07/10/18 08:55; Admin Dose 1 CAP; Start 06/30/18 at 21:00 Mirtazapine (Remeron) 15 mg HS PO Last administered on 07/09/18 21:23; Admin Dose 15 MG; Start 06/30/18 at 21:00 Multivitamins Therapeutic (Theragran) 1 tab DAILY PO Last administered on 07/10/18 08:55; Admin Dose 1 TAB; Start 07/01/18 at 09:00 Pantoprazole (Protonix Tab) 40 mg DAILY PO Last administered on 07/10/18 08:54; Admin Dose 40 MG; Start 07/01/18 at 09:00 Zinc Sulfate (Zinc Sulfate) 220 mg DAILY PO Last administered on 07/10/18 08: 55; Admin Dose 220 MG; Start 07/01/18 at 09:00 Enoxaparin Sodium (Lovenox) 40 mg DAILY SC Last administered on 07/10/18 09:08; Admin Dose 40 MG; Start 07/01/18 at 09:00 Collagenase (Santyl) 1 applic BID TOP Last administered on 07/10/18at 08:56; Admin Dose 1 APPLIC; Start 07/04/18 at 14:30 Aspirin (Aspirin) 81 mg DAILY PO Last administered on 07/10/18 08:54; Admin Dose 81 MG; Start 07/05/18 at 09:00 Folic Acid (Folic Acid) 1 mg DAILY PO Last administered on 07/10/18at 08:55; Admin Dose 1 MG; Start 07/05/18 at 09:00 Vancomycin HCl (Vanco Iv Per Pharmacy) VANCOMYCIN PER PHARMACY PER PROTOCOL XX ; Start 07/07/18 at 17:00 Vancomycin/Sodium Chloride 250 ml @ 125 mls/hr Q12H IVPB Last administered on 07/10/18at 02:11; Admin Dose 125 MLS/HR; Start 07/08/18 at 12:00 CHRIS WILLIS July 10, 2018 12:15
--- NOTE | 2018-07-10 13:32 | PN ---
Date/Time of Note Date/Time of Note DATE: 07/10/18 TIME: 13:31 Assessment/Plan VTE Prophylaxis Risk score (from Nsg)>0 risk: 4 SCD applied (from Nsg): Yes Pharmacological prophylaxis: heparin Lines/Catheters IV Catheter Type (from Nrsg): Saline Lock Urinary Cath still in place: Yes Reason Cath still needed: urinary retention Assessment/Plan Hospital Course EXAM: Lethargic Responsive to noxious stimluil RRR CTAB Soft nt nd A/P: 72 yo male with h/o A FIb, nursning home resident with likely dementia who presents with sepsis and persistent MRSA bacteremia of unclear source MRSA bactermia form MV endocarditis - Echo shows mitral valve vegetation. Cultures did not clear with linezolid so changed to vancomycin 07/07. Cutlures appear to have cleared now - CT C/A/P shows no metastatic infection - Abx per ID - Surveillance cultures until confirmed negative Chronic encephelopathy: - stable Tube feeds for now as not taking much PO. We will need to assess senior living need for enteral nutrition Dc planning: Back to [facility] for 6 weeks of abx when cultures confirmed clear Result Diagram: 07/07/18 1521 07/10/18 0452 Results 24hrs Laboratory Tests Test 07/10/18 04:52 Blood Urea Nitrogen 12 Creatinine 0.60 L Subjective 24 Hr Interval Summary Free Text/Dictation Stable Nonverbal Exam/Review of Systems Exam Vitals Vital Signs Date Temp Pulse Resp B/P (MAP) Pulse Ox O2 O2 Flow FiO2 Time Delivery Rate 07/10/18 82 12:01 07/10/18 98.0 20 138/77 97 Nasal 10:56 (97) Cannula 07/09/18 2.0 21:57 Intake and Output 07/09/18 07/09/18 07/10/18 1515:00 23:00 07:00 IntakeIntake Total 180 ml 700 ml 854 ml OutputOutput Total 700 ml 900 ml BalanceBalance 180 ml 0 ml -46 ml Results Results 24hrs Laboratory Tests Test 07/10/18 04:52 Blood Urea Nitrogen 12 Creatinine 0.60 L Medications Medication Current Medications IV Flush (NS 3 ml) 3 ml PER PROTOCOL IV ; Start 06/30/18 at 15:00 Ondansetron HCl (Zofran Inj) 4 mg Q6H PRN IV NAUSEA/VOMITING; Start 06/30/18 at 15:00 Acetaminophen/ Hydrocodone Bitart ([place] (5/325)) 1 tab Q6H PRN PO .MOD PAIN 4- 6 Last administered on 06/30/18 20:09; Admin Dose 1 TAB; Start 06/30/18 at 15:00 Morphine Sulfate (morphine) 2 mg Q4H PRN IV .SEVERE PAIN 7-10; Start 06/30/18 at 15:00 Docusate Sodium (Colace) 100 mg Q12H PRN PO .CONSTIPATION; Start 06/30/18 at 15:00 Zolpidem Tartrate (Ambien) 5 mg QHS PRN PO .INSOMNIA; Start 06/30/18 at 15:00 Acetaminophen (Tylenol Tab) 650 mg Q6H PRN PO PAIN LEVEL 1-3 OR FEVER Last administered on 06/30/18 17:25; Admin Dose 650 MG; Start 06/30/18 at 15:00 Ascorbic Acid (Vitamin C) 500 mg DAILY PO Last administered on 07/10/18 08:55; Admin Dose 500 MG; Start 07/01/18 at 09:00 Diltiazem HCl (Cardizem) 30 mg TID PO Last administered on 07/10/18 12:58; Admin Dose 30 MG; Start 06/30/18 at 21:00 Lactobacillus Acidophilus/ Rhamnosus (Culturelle) 1 cap BID PO Last administered on 07/10/18 08:55; Admin Dose 1 CAP; Start 06/30/18 at 21:00 Mirtazapine (Remeron) 15 mg HS PO Last administered on 07/09/18 21:23; Admin Dose 15 MG; Start 06/30/18 at 21:00 Multivitamins Therapeutic (Theragran) 1 tab DAILY PO Last administered on 07/10/18 08:55; Admin Dose 1 TAB; Start 07/01/18 at 09:00 Pantoprazole (Protonix Tab) 40 mg DAILY PO Last administered on 07/10/18 08:54; Admin Dose 40 MG; Start 07/01/18 at 09:00 Zinc Sulfate (Zinc Sulfate) 220 mg DAILY PO Last administered on 07/10/18 08:55; Admin Dose 220 MG; Start 07/01/18 at 09:00 Enoxaparin Sodium (Lovenox) 40 mg DAILY SC Last administered on 07/10/18 09:08; Admin Dose 40 MG; Start 07/01/18 at 09:00 Collagenase (Santyl) 1 applic BID TOP Last administered on 07/10/18 08:56; Admin Dose 1 APPLIC; Start 07/04/18 at 14:30 Aspirin (Aspirin) 81 mg DAILY PO Last administered on 07/10/18 08:54; Admin Dose 81 MG; Start 07/05/18 at 09:00 Folic Acid (Folic Acid) 1 mg DAILY PO Last administered on 07/10/18 08:55; Admin Dose 1 MG; Start 07/05/18 at 09:00 Vancomycin HCl (Vanco Iv Per Pharmacy) VANCOMYCIN PER PHARMACY PER PROTOCOL XX ; Start 07/07/18 at 17:00 Vancomycin/Sodium Chloride 250 ml @ 125 mls/hr Q12H IVPB Last administered on 07/10/18 12:56; Admin Dose 125 MLS/HR; Start 07/08/18 at 12:00 DEBBIE GALLEGOS MD July 10, 2018 13:32
--- NOTE | 2018-07-10 13:40 | CONS ---
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 Encephalopathy-improved -Antibiotics as per infectious disease -Continue Cardizem and titrate as needed -Maintain k>4.0 and Mg>2.0 Consultation Date/Type/Reason Admit Date/Time June 30, 2018 at 08:59 Initial Consult Date 07/03/18 Type of Consult Cardiology Requesting Provider: DEBBIE GALLEGOS MD Date/Time of Note DATE: 07/10/18 TIME: 13:39 24 HR Interval Summary Free Text/Dictation no sob, palp Exam/Review of Systems Vital Signs Vitals Vital Signs Date Temp Pulse Resp B/P (MAP) Pulse Ox O2 O2 Flow FiO2 Time Delivery Rate 07/10/18 82 12:01 07/10/18 98.0 20 138/77 97 Nasal 10:56 (97) Cannula 07/09/18 2.0 21:57 Intake and Output 07/09/18 07/09/18 07/10/18 1515:00 23:00 07:00 IntakeIntake Total 180 ml 700 ml 854 ml OutputOutput Total 700 ml 900 ml BalanceBalance 180 ml 0 ml -46 ml Exam Constitutional: alert (nad) Head: normocephalic Respiratory: other (vourse bs, no wheeze) Cardiovascular: irregular rhythm (s1s2), systolic murmur Gastrointestinal: soft, non-tender, bowel sounds Extremities: other (no edema) Labs Result Diagram: 07/07/18 1521 07/10/18 0452 Results 24hrs Laboratory Tests Test 07/10/18 04:52 Blood Urea Nitrogen 12 Creatinine 0.60 L Medications Medications Current Medications IV Flush (NS 3 ml) 3 ml PER PROTOCOL IV ; Start 06/30/18 at 15:00 Ondansetron HCl (Zofran Inj) 4 mg Q6H PRN IV NAUSEA/VOMITING; Start 06/30/18 at 15:00 Acetaminophen/ Hydrocodone Bitart ([place] (5/325)) 1 tab Q6H PRN PO .MOD PAIN 4- 6 Last administered on 06/30/18at 20:09; Admin Dose 1 TAB; Start 06/30/18 at 15:00 Morphine Sulfate (morphine) 2 mg Q4H PRN IV .SEVERE PAIN 7-10; Start 06/30/18 at 15:00 Docusate Sodium (Colace) 100 mg Q12H PRN PO .CONSTIPATION; Start 06/30/18 at 15:00 Zolpidem Tartrate (Ambien) 5 mg QHS PRN PO .INSOMNIA; Start 06/30/18 at 15:00 Acetaminophen (Tylenol Tab) 650 mg Q6H PRN PO PAIN LEVEL 1-3 OR FEVER Last administered on 06/30/18 17:25; Admin Dose 650 MG; Start 06/30/18 at 15:00 Ascorbic Acid (Vitamin C) 500 mg DAILY PO Last administered on 07/10/18 08:55; Admin Dose 500 MG; Start 07/01/18 at 09:00 Diltiazem HCl (Cardizem) 30 mg TID PO Last administered on 07/10/18 12:58; Adm in Dose 30 MG; Start 06/30/18 at 21:00 Lactobacillus Acidophilus/ Rhamnosus (Culturelle) 1 cap BID PO Last administered on 07/10/18 08:55; Admin Dose 1 CAP; Start 06/30/18 at 21:00 Mirtazapine (Remeron) 15 mg HS PO Last administered on 07/09/18 21:23; Admin Dose 15 MG; Start 06/30/18 at 21:00 Multivitamins Therapeutic (Theragran) 1 tab DAILY PO Last administered on 07/10/18 08:55; Admin Dose 1 TAB; Start 07/01/18 at 09:00 Pantoprazole (Protonix Tab) 40 mg DAILY PO Last administered on 07/10/18 08:54; Admin Dose 40 MG; Start 07/01/18 at 09:00 Zinc Sulfate (Zinc Sulfate) 220 mg DAILY PO Last administered on 07/10/18 08:55; Admin Dose 220 MG; Start 07/01/18 at 09:00 Enoxaparin Sodium (Lovenox) 40 mg DAILY SC Last administered on 07/10/18 09:08; Admin Dose 40 MG; Start 07/01/18 at 09:00 Collagenase (Santyl) 1 applic BID TOP Last administered on 07/10/18 08:56; Admin Dose 1 APPLIC; Start 07/04/18 at 14:30 Aspirin (Aspirin) 81 mg DAILY PO Last administered on 07/10/18 08:54; Admin Dose 81 MG; Start 07/05/18 at 09:00 Folic Acid (Folic Acid) 1 mg DAILY PO Last administered on 07/10/18at 08:55; Admin Dose 1 MG; Start 07/05/18 at 09:00 Vancomycin HCl (Vanco Iv Per Pharmacy) VANCOMYCIN PER PHARMACY PER PROTOCOL XX ; Start 07/07/18 at 17:00 Vancomycin/Sodium Chloride 250 ml @ 125 mls/hr Q12H IVPB Last administered on 07/10/18at 12:56; Admin Dose 125 MLS/HR; Start 07/08/18 at 12:00 Charan Cottrell DO July 10, 2018 13:40
[2018-07-10] MEDS: MIRTAZAPINE 15 MG TAB PO SCH (20:25)
[2018-07-11] VITALS (9 sets, daily range): BP systolic 113–143; BP diastolic 58–68; PULSE 86–111; RESP 19–20
[2018-07-11] MEDS: MULTIVITAMINS THERAPEUTIC TAB PO SCH (08:51)
[2018-07-11] MEDS: ASPIRIN 81 MG TAB PO SCH (08:51)
[2018-07-11] MEDS: PANTOPRAZOLE (EC) 40 MG TAB PO SCH (08:51)
[2018-07-11] MEDS: FOLIC ACID 1 MG TAB PO SCH (08:51)
[2018-07-11] MEDS: COLLAGENASE 5 GM (UD JAR) TOP SCH ×2 (08:51→20:34)
[2018-07-11] MEDS: LACTOBACILLUS RHAMNOSUS CAP PO SCH ×2 (08:51→20:30)
[2018-07-11] MEDS: ZINC SULFATE 220 MG CAP PO SCH (08:51)
[2018-07-11] MEDS: ASCORBIC ACID 500 MG TAB PO SCH (08:52)
[2018-07-11] MEDS: DILTIAZEM 30 MG TAB PO SCH ×3 (08:52→20:30)
[2018-07-11] MEDS: ENOXAPARIN 40 MG/0.4 ML SYG SC SCH (09:01)
[2018-07-11] MEDS: BALSAM PERU/CASTOR OIL 60 GM TUBE TOP SCH ×2 (09:05→20:33)
[2018-07-11] MEDS ORDERED: ONDANSETRON 4 MG INJ IV PRN (12:00)
--- NOTE | 2018-07-11 12:01 | CONS ---
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 Encephalopathy-improved -Antibiotics as per infectious disease -Continue Cardizem and titrate as needed -Maintain k>4.0 and Mg>2.0 Consultation Date/Type/Reason Admit Date/Time June 30, 2018 at 08:59 Initial Consult Date 07/03/18 Type of Consult Cardiology Requesting Provider: DEBBIE GALLEGOS MD Date/Time of Note DATE: 07/11/18 TIME: 12:00 24 HR Interval Summary Free Text/Dictation Patient seen and examined Exam/Review of Systems Vital Signs Vitals Vital Signs Date Temp Pulse Resp B/P (MAP) Pulse Ox O2 O2 Flow FiO2 Time Delivery Rate 07/11/18 99.9 99 20 113/64 97 Nasal 11:00 (80) Cannula 07/11/18 2.0 08:08 Intake and Output 07/10/18 07/10/18 07/11/18 1515:00 23:00 07:00 IntakeIntake Total 760 ml 880 ml OutputOutput Total 1200 ml 1100 ml BalanceBalance -440 ml -220 ml Exam Exam Sleeping, no apparent distress Head: normocephalic Respiratory: other (Coarse breath sounds bilaterally, no wheezing) Cardiovascular: irregular rhythm (S1-S2 heard), systolic murmur Gastrointestinal: soft, non-tender, bowel sounds Extremities: edema (Trace) Labs Result Diagram: 07/11/18 0502 07/11/18 0501 Results 24hrs Laboratory Tests Test 07/11/18 05:01 07/11/18 05:02 Sodium Level 131 L Potassium Level 4.0 Chloride Level 101 Carbon Dioxide Level 23 Anion Gap 7 Blood Urea Nitrogen 12 Creatinine 0.50 L Est Glomerular Filtrat Rate mL/min > 60 Glucose Level 125 Calcium Level 7.9 L White Blood Count 17.0 H Red Blood Count 2.89 #L Hemoglobin 8.5 #L Hematocrit 26.1 #L Mean Corpuscular Volume 90.3 Mean Corpuscular Hemoglobin 29.4 Mean Corpuscular Hemoglobin Concent 32.6 Red Cell Distribution Width 16.1 H Platelet Count 313 # Mean Platelet Volume 8.7 Immature Granulocytes % 2.300 H Neutrophils % 81.3 H Lymphocytes % 10.0 L Monocytes % 6.3 Eosinophils % 0.0 Basophils % 0.1 Nucleated Red Blood Cells % 0.0 Immature Granulocytes # 0.390 H Neutrophils # 13.8 H Lymphocytes # 1.7 Monocytes # 1.1 H Eosinophils # 0.0 Basophils # 0.0 Nucleated Red Blood Cells # 0.0 Medications Medications Current Medications IV Flush (NS 3 ml) 3 ml PER PROTOCOL IV ; Start 06/30/18 at 15:00 Ondansetron HCl (Zofran Inj) 4 mg Q6H PRN IV NAUSEA/VOMITING; Start 06/30/18 at 15:00 Acetaminophen/ Hydrocodone Bitart ([place] (5/325)) 1 tab Q6H PRN PO .MOD PAIN 4- 6 Last administered on 06/30/18 20:09; Admin Dose 1 TAB; Start 06/30/18 at 15:00 Morphine Sulfate (morphine) 2 mg Q4H PRN IV .SEVERE PAIN 7-10; Start 06/30/18 at 15:00 Docusate Sodium (Colace) 100 mg Q12H PRN PO .CONSTIPATION; Start 06/30/18 at 15:00 Zolpidem Tartrate (Ambien) 5 mg QHS PRN PO .INSOMNIA; Start 06/30/18 at 15:00 Acetaminophen (Tylenol Tab) 650 mg Q6H PRN PO PAIN LEVEL 1-3 OR FEVER Last administered on 06/30/18 17:25; Admin Dose 650 MG; Start 06/30/18 at 15:00 Ascorbic Acid (Vitamin C) 500 mg DAILY PO Last administered on 07/11/18 08:52; Admin Dose 500 MG; Start 07/01/18 at 09:00 Diltiazem HCl (Cardizem) 30 mg TID PO Last administered on 07/11/18 08:52; Admin Dose 30 MG; Start 06/30/18 at 21:00 Lactobacillus Acidophilus/ Rhamnosus (Culturelle) 1 cap BID PO Last administered on 07/11/18 08:51; Admin Dose 1 CAP; Start 06/30/18 at 21:00 Mirtazapine (Remeron) 15 mg HS PO Last administered on 07/10/18 20:25; Admin Dose 15 MG; Start 06/30/18 at 21:00 Multivitamins Therapeutic (Theragran) 1 tab DAILY PO Last administered on 07/11/18 08:51; Admin Dose 1 TAB; Start 07/01/18 at 09:00 Pantoprazole (Protonix Tab) 40 mg DAILY PO Last administered on 07/11/18 08:51; Admin Dose 40 MG; Start 07/01/18 at 09:00 Zinc Sulfate (Zinc Sulfate) 220 mg DAILY PO Last administered on 07/11/18 08:51; Admin Dose 220 MG; Start 07/01/18 at 09:00 Enoxaparin Sodium (Lovenox) 40 mg DAILY SC Last administered on 07/11/18 09:01; Admin Dose 40 MG; Start 07/01/18 at 09:00 Collagenase (Santyl) 1 applic BID TOP Last administered on 07/11/18 08:51; Admin Dose 1 APPLIC; Start 07/04/18 at 14:30 Aspirin (Aspirin) 81 mg DAILY PO Last administered on 07/11/18 08:51; Admin Dose 81 MG; Start 07/05/18 at 09:00 Folic Acid (Folic Acid) 1 mg DAILY PO Last administered on 07/11/18 08:51; Admin Dose 1 MG; Start 07/05/18 at 09:00 Vancomycin HCl (Vanco Iv Per Pharmacy) VANCOMYCIN PER PHARMACY PER PROTOCOL XX ; Start 07/07/18 at 17:00 Vancomycin/Sodium Chloride 250 ml @ 125 mls/hr Q12H IVPB Last administered on 07/10/18 23:55; Admin Dose 125 MLS/HR; Start 07/08/18 at 12:00 Ondansetron HCl (Zofran Inj) 4 mg Q6H PRN IV NAUSEA AND/OR VOMITING; Start 07/11/18 at 12:00; Status Charan Jimenez DO July 11, 2018 12:01
--- NOTE | 2018-07-11 12:07 | PN ---
Date/Time of Note Date/Time of Note DATE: 07/11/18 TIME: 11:46 Assessment/Plan VTE Prophylaxis Risk score (from Ns)>0 risk: 3 SCD applied (from Ns): No SCD contraindicated: other Pharmacological prophylaxis: LMWH Lines/Catheters IV Catheter Type (from Nrs): Saline Lock Urinary Cath still in place: Yes Reason Cath still needed: urinary retention Assessment/Plan Hospital Course S: Patient tolerating NG tube feeds, no fevers overnight. Patient did have some vomiting episodes this morning, also seen by speech therapy team. O: VS- see below PE: Lethargic, NG tube in place Responsive to noxious stimuli RRR CTAB Soft nt nd 2D echo July 07, 2018: Conclusions: Posterior mitral valve leaflet appear moderately thickened. Mild to moderate mitral regurgitation. The regurgitation jet is eccentrically directed which may underestimate the severity of mitral regurgitation. Echogenic structure is seen on the mitral valve, most consistent with vegetation. A/P: 72 yo male with h/o A FIb, [facility] resident with likely dementia who presents with sepsis and persistent MRSA bacteremia. 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 Cultures did not clear with linezolid so changed to vancomycin 07/07. Cultures appear to have cleared now- CT C/A/P shows no metastatic infection -For now continue Abx per ID - they anticipate to keep on IV Vanco for 6 weeks. -Per discussion with ID team today, will go ahead and order PICC placement now - Surveillance cultures until confirmed negative # Chronic encephelopathy- stable -Monitor -Continue tube feeds for now as not taking much PO. We will need to assess longterm need for enteral nutrition -follow-up further speech therapy recommendations # afib: Appears rate controlled now -Monitor for now # Schizophrenia -Monitor, continue psychiatric meds # Debility secondary to psychosis - Patient resides in a [facility] -Monitor, consider PT eval Dispo: Dc planning: Back to [facility] for 6 weeks of abx when cultures confirmed clear and when okay with ID team Result Diagram: 07/11/18 0502 07/11/18 0501 Results 24hrs Laboratory Tests Test 07/11/18 05:01 07/11/18 05:02 Sodium Level 131 L Potassium Level 4.0 Chloride Level 101 Carbon Dioxide Level 23 Anion Gap 7 Blood Urea Nitrogen 12 Creatinine 0.50 L Est Glomerular Filtrat Rate mL/min > 60 Glucose Level 125 Calcium Level 7.9 L White Blood Count 17.0 H Red Blood Count 2.89 #L Hemoglobin 8.5 #L Hematocrit 26.1 #L Mean Corpuscular Volume 90.3 Mean Corpuscular Hemoglobin 29.4 Mean Corpuscular Hemoglobin Concent 32.6 Red Cell Distribution Width 16.1 H Platelet Count 313 # Mean Platelet Volume 8.7 Immature Granulocytes % 2.300 H Neutrophils % 81.3 H Lymphocytes % 10.0 L Monocytes % 6.3 Eosinophils % 0.0 Basophils % 0.1 Nucleated Red Blood Cells % 0.0 Immature Granulocytes # 0.390 H Neutrophils # 13.8 H Lymphocytes # 1.7 Monocytes # 1.1 H Eosinophils # 0.0 Basophils # 0.0 Nucleated Red Blood Cells # 0.0 Exam/Review of Systems Exam Vitals Vital Signs Date Temp Pulse Resp B/P (MAP) Pulse Ox O2 O2 Flow FiO2 Time Delivery Rate 07/11/18 99.9 99 20 113/64 97 Nasal 11:00 (80) Cannula 07/11/18 2.0 08:08 Intake and Output 07/10/18 07/10/18 07/11/18 1515:00 23:00 07:00 IntakeIntake Total 760 ml 880 ml OutputOutput Total 1200 ml 1100 ml BalanceBalance -440 ml -220 ml Results Results 24hrs Laboratory Tests Test 07/11/18 05:01 07/11/18 05:02 Sodium Level 131 L Potassium Level 4.0 Chloride Level 101 Carbon Dioxide Level 23 Anion Gap 7 Blood Urea Nitrogen 12 Creatinine 0.50 L Est Glomerular Filtrat Rate mL/min > 60 Glucose Level 125 Calcium Level 7.9 L White Blood Count 17.0 H Red Blood Count 2.89 #L Hemoglobin 8.5 #L Hematocrit 26.1 #L Mean Corpuscular Volume 90.3 Mean Corpuscular Hemoglobin 29.4 Mean Corpuscular Hemoglobin Concent 32.6 Red Cell Distribution Width 16.1 H Platelet Count 313 # Mean Platelet Volume 8.7 Immature Granulocytes % 2.300 H Neutrophils % 81.3 H Lymphocytes % 10.0 L Monocytes % 6.3 Eosinophils % 0.0 Basophils % 0.1 Nucleated Red Blood Cells % 0.0 Immature Granulocytes # 0.390 H Neutrophils # 13.8 H Lymphocytes # 1.7 Monocytes # 1.1 H Eosinophils # 0.0 Basophils # 0.0 Nucleated Red Blood Cells # 0.0 Medications Medication Current Medications IV Flush (NS 3 ml) 3 ml PER PROTOCOL IV ; Start 06/30/18 at 15:00 Ondansetron HCl (Zofran Inj) 4 mg Q6H PRN IV NAUSEA/VOMITING; Start 06/30/18 at 15:00 Acetaminophen/ Hydrocodone Bitart ([place] (5/325)) 1 tab Q6H PRN PO .MOD PAIN 4- 6 Last administered on 06/30/18 20:09; Admin Dose 1 TAB; Start 06/30/18 at 15:00 Morphine Sulfate (morphine) 2 mg Q4H PRN IV .SEVERE PAIN 7-10; Start 06/30/18 at 15:00 Docusate Sodium (Colace) 100 mg Q12H PRN PO .CONSTIPATION; Start 06/30/18 at 15:00 Zolpidem Tartrate (Ambien) 5 mg QHS PRN PO .INSOMNIA; Start 06/30/18 at 15:00 Acetaminophen (Tylenol Tab) 650 mg Q6H PRN PO PAIN LEVEL 1-3 OR FEVER Last administered on 06/30/18 17:25; Admin Dose 650 MG; Start 06/30/18 at 15:00 Ascorbic Acid (Vitamin C) 500 mg DAILY PO Last administered on 07/11/18 08:52; Admin Dose 500 MG; Start 07/01/18 at 09:00 Diltiazem HCl (Cardizem) 30 mg TID PO Last administered on 07/11/18 08:52; Admin Dose 30 MG; Start 06/30/18 at 21:00 Lactobacillus Acidophilus/ Rhamnosus (Culturelle) 1 cap BID PO Last administered on 07/11/18 08:51; Admin Dose 1 CAP; Start 06/30/18 at 21:00 Mirtazapine (Remeron) 15 mg HS PO Last administered on 07/10/18 20:25; Admin Dose 15 MG; Start 06/30/18 at 21:00 Multivitamins Therapeutic (Theragran) 1 tab DAILY PO Last administered on 08:51; Admin Dose 1 TAB; Start 07/01/18 at 09:00 Pantoprazole (Protonix Tab) 40 mg DAILY PO Last administered on 07/11/18 08:51; Admin Dose 40 MG; Start 07/01/18 at 09:00 Zinc Sulfate (Zinc Sulfate) 220 mg DAILY PO Last administered on 07/11/18 08:51; Admin Dose 220 MG; Start 07/01/18 at 09:00 Enoxaparin Sodium (Lovenox) 40 mg DAILY SC Last administered on 07/11/18 09:01; Admin Dose 40 MG; Start 07/01/18 at 09:00 Collagenase (Santyl) 1 applic BID TOP Last administered on 07/11/18 08:51; Admin Dose 1 APPLIC; Start 07/04/18 at 14:30 Aspirin (Aspirin) 81 mg DAILY PO Last administered on 07/11/18 08:51; Admin Dose 81 MG; Start 07/05/18 at 09:00 Folic Acid (Folic Acid) 1 mg DAILY PO Last administered on 07/11/18 08:51; Admin Dose 1 MG; Start 07/05/18 at 09:00 Vancomycin HCl (Vanco Iv Per Pharmacy) VANCOMYCIN PER PHARMACY PER PROTOCOL XX ; Start 07/07/18 at 17:00 Vancomycin/Sodium Chloride 250 ml @ 125 mls/hr Q12H IVPB Last administered on 07/10/18 23:55; Admin Dose 125 MLS/HR; Start 07/08/18 at 12:00 SOTO SHERMAN July 11, 2018 11:57
[2018-07-11] MEDS ORDERED: LIDOCAINE 1% (MPF) 5 ML VIAL SC ONE (12:30)
[2018-07-11] MEDS: VANCOMYCIN 750 MG (PMX) 250 ML IVPB SCH (13:03)
--- NOTE | 2018-07-11 14:14 | CONS ---
Assessment/Plan Assessment/Plan Hospital Course (Demo Recall) Patient is lethargic in no distress, afebrile, WBC went up to 17 was neutrophils 81.3 today BUN 12 creatinine 0.50. Microbiology: Blood cultures since admission grew MRSA, urine culture grew VRE E. coli ESBL and Enterobacter cloaca. Repeat blood cultures on July 07 and -, urine culture negative Antimicrobials: Vanco Indwelling's: Jimenez, NGT Physical examination: Fragile elderly man who is in no distress. Head atraumatic normocephalic neck is supple chest rise symmetrical breath sounds diminished bases. Heart: S1-S2. Abdomen soft bowel sounds present. Extremities without cyanosis Assessment: 1. 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 S/p polymicrobial UTI 3. Acute on chronic encephalopathy 4. Cachexia 5. Atrial fibrillation status post RVR Plan: Clinically unchanged, repeat chest x-ray, continue antibiotics, aspiration precautions, monitor renal f-n, cardiology rec-s. Anticipate to keep on IV Vanco for 6 weeks. Pending PICC line Consultation Date/Type/Reason Admit Date/Time June 30, 2018 at 08:59 Initial Consult Date 07/03/18 Type of Consult id Requesting Provider: DEBBIE GALLEGOS MD Date/Time of Note DATE: 07/11/18 TIME: 14:13 Exam/Review of Systems Exam Vitals Vital Signs Date Temp Pulse Resp B/P (MAP) Pulse Ox O2 O2 Flow FiO2 Time Delivery Rate 07/11/18 93 12:01 07/11/18 99.9 20 113/64 97 Nasal 11:00 (80) Cannula 07/11/18 2.0 08:08 Intake and Output 07/10/18 07/10/18 07/11/18 1515:00 23:00 07:00 IntakeIntake Total 760 ml 880 ml OutputOutput Total 1200 ml 1100 ml BalanceBalance -440 ml -220 ml Results Result Diagram: 07/11/18 0502 07/11/18 0501 Results 24hrs Laboratory Tests Test 07/11/18 05:01 07/11/18 05:02 Sodium Level 131 L Potassium Level 4.0 Chloride Level 101 Carbon Dioxide Level 23 Anion Gap 7 Blood Urea Nitrogen 12 Creatinine 0.50 L Est Glomerular Filtrat Rate mL/min > 60 Glucose Level 125 Calcium Level 7.9 L White Blood Count 17.0 H Red Blood Count 2.89 #L Hemoglobin 8.5 #L Hematocrit 26.1 #L Mean Corpuscular Volume 90.3 Mean Corpuscular Hemoglobin 29.4 Mean Corpuscular Hemoglobin Concent 32.6 Red Cell Distribution Width 16.1 H Platelet Count 313 # Mean Platelet Volume 8.7 Immature Granulocytes % 2.300 H Neutrophils % 81.3 H Lymphocytes % 10.0 L Monocytes % 6.3 Eosinophils % 0.0 Basophils % 0.1 Nucleated Red Blood Cells % 0.0 Immature Granulocytes # 0.390 H Neutrophils # 13.8 H Lymphocytes # 1.7 Monocytes # 1.1 H Eosinophils # 0.0 Basophils # 0.0 Nucleated Red Blood Cells # 0.0 Medications Medication Current Medications IV Flush (NS 3 ml) 3 ml PER PROTOCOL IV ; Start 06/30/18 at 15:00 Acetaminophen/ Hydrocodone Bitart ([place] (5/325)) 1 tab Q6H PRN PO .MOD PAIN 4- 6 Last administered on 06/30/18at 20:09; Admin Dose 1 TAB; Start 06/30/18 at 15:00 Morphine Sulfate (morphine) 2 mg Q4H PRN IV .SEVERE PAIN 7-10; Start 06/30/18 at 15:00 Docusate Sodium (Colace) 100 mg Q12H PRN PO .CONSTIPATION; Start 06/30/18 at 15:00 Zolpidem Tartrate (Ambien) 5 mg QHS PRN PO .INSOMNIA; Start 06/30/18 at 15:00 Acetaminophen (Tylenol Tab) 650 mg Q6H PRN PO PAIN LEVEL 1-3 OR FEVER Last administered on 06/30/18at 17:25; Admin Dose 650 MG; Start 06/30/18 at 15:00 Ascorbic Acid (Vitamin C) 500 mg DAILY PO Last administered on 07/11/18at 08:52; Admin Dose 500 MG; Start 07/01/18 at 09:00 Diltiazem HCl (Cardizem) 30 mg TID PO Last administered on 07/11/18at 13:03; Admin Dose 30 MG; Start 06/30/18 at 21:00 Lactobacillus Acidophilus/ Rhamnosus (Culturelle) 1 cap BID PO Last administered on 07/11/18at 08:51; Admin Dose 1 CAP; Start 06/30/18 at 21:00 Mirtazapine (Remeron) 15 mg HS PO Last administered on 07/10/18 20:25; Admin Dose 15 MG; Start 06/30/18 at 21:00 Multivitamins Therapeutic (Theragran) 1 tab DAILY PO Last administered on 07/11/18 08:51; Admin Dose 1 TAB; Start 07/01/18 at 09:00 Pantoprazole (Protonix Tab) 40 mg DAILY PO Last administered on 07/11/18 08:51; Admin Dose 40 MG; Start 07/01/18 at 09:00 Zinc Sulfate (Zinc Sulfate) 220 mg DAILY PO Last administered on 07/11/18 08:51; Admin Dose 220 MG; Start 07/01/18 at 09:00 Enoxaparin Sodium (Lovenox) 40 mg DAILY SC Last administered on 07/11/18 09:01; Admin Dose 40 MG; Start 07/01/18 at 09:00 Collagenase (Santyl) 1 applic BID TOP Last administered on 07/11/18 08:51; Admin Dose 1 APPLIC; Start 07/04/18 at 14:30 Aspirin (Aspirin) 81 mg DAILY PO Last administered on 07/11/18 08:51; Admin Dose 81 MG; Start 07/05/18 at 09:00 Folic Acid (Folic Acid) 1 mg DAILY PO Last administered on 07/11/18 08:51; Admin Dose 1 MG; Start 07/05/18 at 09:00 Vancomycin HCl (Vanco Iv Per Pharmacy) VANCOMYCIN PER PHARMACY PER PROTOCOL XX ; Start 07/07/18 at 17:00 Vancomycin/Sodium Chloride 250 ml @ 125 mls/hr Q12H IVPB Last administered on 07/11/18 13:03; Admin Dose 125 MLS/HR; Start 07/08/18 at 12:00 Ondansetron HCl (Zofran Inj) 4 mg Q6H PRN IV NAUSEA AND/OR VOMITING; Start 07/11/18 at 12:00 SANDER WILL NP July 11, 2018 14:14
[2018-07-11] MEDS: MIRTAZAPINE 15 MG TAB PO SCH (20:30)
[2018-07-12] VITALS (10 sets, daily range): BP systolic 100–137; BP diastolic 58–72; PULSE 80–137; RESP 19–22
[2018-07-12] MEDS: VANCOMYCIN 750 MG (PMX) 250 ML IVPB SCH ×3 (00:03→23:55)
[2018-07-12] MEDS: ASPIRIN 81 MG TAB PO SCH (09:05)
[2018-07-12] MEDS: LACTOBACILLUS RHAMNOSUS CAP PO SCH ×2 (09:06→20:29)
[2018-07-12] MEDS: ACETAMINOPHEN 325 MG TAB PO PRN (09:06)
[2018-07-12] MEDS: MULTIVITAMINS THERAPEUTIC TAB PO SCH (09:06)
[2018-07-12] MEDS: ASCORBIC ACID 500 MG TAB PO SCH (09:06)
[2018-07-12] MEDS: FOLIC ACID 1 MG TAB PO SCH (09:06)
[2018-07-12] MEDS: COLLAGENASE 5 GM (UD JAR) TOP SCH ×2 (09:08→20:30)
[2018-07-12] MEDS: BALSAM PERU/CASTOR OIL 60 GM TUBE TOP SCH ×2 (09:08→20:30)
[2018-07-12] MEDS: ENOXAPARIN 40 MG/0.4 ML SYG SC SCH (09:11)
[2018-07-12] MEDS: DILTIAZEM 30 MG TAB PO SCH ×2 (09:11→13:00)
[2018-07-12] MEDS: PANTOPRAZOLE (EC) 40 MG TAB PO SCH (09:12)
[2018-07-12] MEDS: ZINC SULFATE 220 MG CAP PO SCH (09:12)
--- NOTE | 2018-07-12 09:35 | QN ---
Documentation Comment Of note, this patient needs a P ICC placement as it is a medical necessity given his endocarditis and MRSA infection, and apparently he cannot consent for the procedure now, family not available to give consent as well. SOTO SHERMAN. July 12, 2018 09:35
--- NOTE | 2018-07-12 12:37 | PN ---
Date/Time of Note Date/Time of Note DATE: 07/12/18 TIME: 12:27 Assessment/Plan VTE Prophylaxis Risk score (from Ns)>0 risk: 5 SCD applied (from Ns): No SCD contraindicated: other Pharmacological prophylaxis: LMWH Lines/Catheters [facility] [place] Urinary Cath still in place: Yes Reason Cath still needed: urinary retention Assessment/Plan Hospital Course S: Patient tolerating NG tube feeds, did have positive fevers overnight 100.3. Seen by speech therapy again this morning. O: VS- see below PE: Lethargic, NG tube in place Responsive to noxious stimuli RRR CTAB Soft nt nd 2D echo July 07, 2018: Conclusions: Posterior mitral valve leaflet appear moderately thickened. Mild to moderate mitral regurgitation. The regurgitation jet is eccentrically directed which may underestimate the severity of mitral regurgitation. Echogenic structure is seen on the mitral valve, most consistent with vegetation. A/P: 72 yo male with h/o A FIb, prison resident with likely dementia who presents with sepsis and persistent MRSA bacteremia. 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 Cultures did not clear with linezolid so infectious disease team changed to vancomycin 07/07. Cultures appear to have cleared now (preliminary blood culture results from July 07 and are no growth to date)- CT C/A/P shows no metastatic infection -For now continue Abx per ID - they anticipate to keep on IV Vanco for 6 weeks-order placed for case management to help set this up -Awaiting today for PICC placement now -Continue per ID surveillance cultures until confirmed negative # Chronic encephalopathy- stable -Monitor -Continue tube feeds for now as not taking much PO. We will need to assess usp need for enteral nutrition -follow-up further speech therapy recommendations. # afib: Appears rate controlled now -Monitor for now, continue p.o. Cardizem, follow-up further cardiology recommendations # Schizophrenia -Monitor, continue psychiatric meds # Debility secondary to psychosis - Patient resides in a prison -Monitor, PT eval Dispo: [facility] C planning: Now looking for placement to respiratory center [facility] hopefully either today or tomorrow-Case management working on this Result Diagram: 07/12/18 0502 07/12/18 0502 Results 24hrs Laboratory Tests Test 07/12/18 01:15 07/12/18 05:02 Urine Color YELLOW Urine Clarity SLIGHTLY CLOUDY A Urine pH 6.0 Urine Specific [place] 1.020 Urine Ketones NEGATIVE Urine Nitrite NEGATIVE Urine Bilirubin NEGATIVE Urine Urobilinogen 1+ H Urine Leukocyte Esterase NEGATIVE Urine Microscopic RBC 13 H Urine Microscopic WBC 2 Urine Bacteria FEW A Urine Mucus FEW A Urine Hemoglobin NEGATIVE Urine Glucose NEGATIVE Urine Total Protein 2+ H White Blood Count 13.1 #H Red Blood Count 2.91 L Hemoglobin 8.6 L Hematocrit 26.3 L Mean Corpuscular Volume 90.4 Mean Corpuscular Hemoglobin 29.6 Mean Corpuscular Hemoglobin Concent 32.7 Red Cell Distribution Width 16.5 H Platelet Count 230 # Mean Platelet Volume 8.7 Immature Granulocytes % 1.400 H Neutrophils % 79.0 H Lymphocytes % 12.2 L Monocytes % 7.2 Eosinophils % 0.0 Basophils % 0.2 Nucleated Red Blood Cells % 0.0 Immature Granulocytes # 0.190 H Neutrophils # 10.4 H Lymphocytes # 1.6 Monocytes # 1.0 H Eosinophils # 0.0 Basophils # 0.0 Nucleated Red Blood Cells # 0.0 Sodium Level 130 L Potassium Level 4.0 Chloride Level 98 Carbon Dioxide Level 25 Anion Gap 7 Blood Urea Nitrogen 16 Creatinine 0.66 Est Glomerular Filtrat Rate mL/min > 60 Glucose Level 123 Calcium Level 7.9 L Phosphorus Level 2.5 Magnesium Level 2.0 Exam/Review of Systems Exam Vitals Vital Signs Date Temp Pulse Resp B/P (MAP) Pulse Ox O2 O2 Flow FiO2 Time Delivery Rate 07/12/18 80 12:01 07/12/18 97.8 22 100/58 96 Room Air 11:31 (72) 07/12/18 2.0 08:00 Intake and Output 07/11/18 07/11/18 07/12/18 1515:00 23:00 07:00 IntakeIntake Total 250 ml 1050 ml OutputOutput Total 400 ml BalanceBalance 250 ml 650 ml Results Results 24hrs Laboratory Tests Test 07/12/18 01:15 07/12/18 05:02 Urine Color YELLOW Urine Clarity SLIGHTLY CLOUDY A Urine pH 6.0 Urine Specific [place] 1.020 Urine Ketones NEGATIVE Urine Nitrite NEGATIVE Urine Bilirubin NEGATIVE Urine Urobilinogen 1+ H Urine Leukocyte Esterase NEGATIVE Urine Microscopic RBC 13 H Urine Microscopic WBC 2 Urine Bacteria FEW A Urine Mucus FEW A Urine Hemoglobin NEGATIVE Urine Glucose NEGATIVE Urine Total Protein 2+ H White Blood Count 13.1 #H Red Blood Count 2.91 L Hemoglobin 8.6 L Hematocrit 26.3 L Mean Corpuscular Volume 90.4 Mean Corpuscular Hemoglobin 29.6 Mean Corpuscular Hemoglobin Concent 32.7 Red Cell Distribution Width 16.5 H Platelet Count 230 # Mean Platelet Volume 8.7 Immature Granulocytes % 1.400 H Neutrophils % 79.0 H Lymphocytes % 12.2 L Monocytes % 7.2 Eosinophils % 0.0 Basophils % 0.2 Nucleated Red Blood Cells % 0.0 Immature Granulocytes # 0.190 H Neutrophils # 10.4 H Lymphocytes # 1.6 Monocytes # 1.0 H Eosinophils # 0.0 Basophils # 0.0 Nucleated Red Blood Cells # 0.0 Sodium Level 130 L Potassium Level 4.0 Chloride Level 98 Carbon Dioxide Level 25 Anion Gap 7 Blood Urea Nitrogen 16 Creatinine 0.66 Est Glomerular Filtrat Rate mL/min > 60 Glucose Level 123 Calcium Level 7.9 L Phosphorus Level 2.5 Magnesium Level 2.0 Medications Medication Current Medications IV Flush (NS 3 ml) 3 ml PER PROTOCOL IV ; Start 06/30/18 at 15:00 Acetaminophen/ Hydrocodone Bitart ([place] (5/325)) 1 tab Q6H PRN PO .MOD PAIN 4- 6 Last administered on 06/30/18at 20:09; Admin Dose 1 TAB; Start 06/30/18 at 15:00 Morphine Sulfate (morphine) 2 mg Q4H PRN IV .SEVERE PAIN 7-10; Start 06/30/18 at 15:00 Docusate Sodium (Colace) 100 mg Q12H PRN PO .CONSTIPATION Last administered on 07/12/18at 09:06; Admin Dose 100 MG; Start 06/30/18 at 15:00 Zolpidem Tartrate (Ambien) 5 mg QHS PRN PO .INSOMNIA; Start 06/30/18 at 15:00 Acetaminophen (Tylenol Tab) 650 mg Q6H PRN PO PAIN LEVEL 1-3 OR FEVER Last administered on 07/12/18at 09:06; Admin Dose 650 MG; Start 06/30/18 at 15:00 Ascorbic Acid (Vitamin C) 500 mg DAILY PO Last administered on 07/12/18at 09:06; Admin Dose 500 MG; Start 07/01/18 at 09:00 Diltiazem HCl (Cardizem) 30 mg TID PO Last administered on 07/12/18 09:11; Admin Dose 30 MG; Start 06/30/18 at 21:00 Lactobacillus Acidophilus/ Rhamnosus (Culturelle) 1 cap BID PO Last administered on 07/12/18 09:06; Admin Dose 1 CAP; Start 06/30/18 at 21:00 Mirtazapine (Remeron) 15 mg HS PO Last administered on 07/11/18 20:30; Admin Dose 15 MG; Start 06/30/18 at 21:00 Multivitamins Therapeutic (Theragran) 1 tab DAILY PO Last administered on 07/12/18 09:06; Admin Dose 1 TAB; Start 07/01/18 at 09:00 Pantoprazole (Protonix Tab) 40 mg DAILY PO Last administered on 07/12/18 09:12; Admin Dose 40 MG; Start 07/01/18 at 09:00 Zinc Sulfate (Zinc Sulfate) 220 mg DAILY PO Last administered on 07/12/18 09:12; Admin Dose 220 MG; Start 07/01/18 at 09:00 Enoxaparin Sodium (Lovenox) 40 mg DAILY SC Last administered on 07/12/18 09:11; Admin Dose 40 MG; Start 07/01/18 at 09:00 Collagenase (Santyl) 1 applic BID TOP Last administered on 07/12/18 09:08; Admin Dose 1 APPLIC; Start 07/04/18 at 14:30 Aspirin (Aspirin) 81 mg DAILY PO Last administered on 07/12/18 09:05; Admin Dose 81 MG; Start 07/05/18 at 09:00 Folic Acid (Folic Acid) 1 mg DAILY PO Last administered on 07/12/18 09:06; Admin Dose 1 MG; Start 07/05/18 at 09:00 Vancomycin HCl (Vanco Iv Per Pharmacy) VANCOMYCIN PER PHARMACY PER PROTOCOL XX ; Start 07/07/18 at 17:00 Vancomycin/Sodium Chloride 250 ml @ 125 mls/hr Q12H IVPB Last administered on 07/12/18 12:00; Admin Dose 125 MLS/HR; Start 07/08/18 at 12:00 Ondansetron HCl (Zofran Inj) 4 mg Q6H PRN IV NAUSEA AND/OR VOMITING; Start 5 /20/19 at 12:00 Miscellaneous Information (*Rx Drug Level Order Reminder*) VANCO TROUGH @ 1,100 ON... 1100 ONCE XX ; Start 07/13/18 at 11:00; Stop 07/13/18 at 11:01 SOTO SHERMAN July 12, 2018 12:37
--- NOTE | 2018-07-12 14:43 | CONS ---
Assessment/Plan Assessment/Plan Hospital Course (Demo Recall) Patient is spiking low-grade fevers with a T-max of 100.6 this morning he is noncommunicative in no distress with WBC today 13.1 platelets 230 neutrophils 79 BUN 16 creatinine 0.66 Microbiology: Blood cultures since admission grew MRSA, urine culture grew VRE E. coli ESBL and Enterobacter cloaca. Repeat blood cultures on July 07 and -, urine culture negative Antimicrobials: Vanco Indwelling's: Jimenez, NGT Physical examination: Fragile elderly man who is in no distress. Head atraumatic normocephalic neck is supple chest rise symmetrical breath sounds diminished bases. Heart: S1-S2. Abdomen soft bowel sounds present. Extremities without cyanosis Assessment: 1. Sepsis with ongoing fevers and leukocytosis 1. 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 S/p polymicrobial UTI 3. Acute on chronic encephalopathy 4. Cachexia 5. Atrial fibrillation status post RVR Plan: Clinically unchanged, continues to spike fevers, will add meropenem, continue vancomycin, repeat blood cultures, continue aspiration precautions CONSUELO RN Consultation Date/Type/Reason Admit Date/Time June 30, 2018 at 08:59 Initial Consult Date 07/03/18 Type of Consult id Requesting Provider: DEBBIE GALLEGOS MD Date/Time of Note DATE: 07/12/18 TIME: 14:42 Exam/Review of Systems Exam Vitals Vital Signs Date Temp Pulse Resp B/P (MAP) Pulse Ox O2 O2 Flow FiO2 Time Delivery Rate 07/12/18 80 12:01 07/12/18 97.8 22 100/58 96 Room Air 11:31 (72) 07/12/18 2.0 08:00 Intake and Output 07/11/18 07/11/18 07/12/18 1515:00 23:00 07:00 IntakeIntake Total 250 ml 1050 ml OutputOutput Total 400 ml BalanceBalance 250 ml 650 ml Results Result Diagram: 07/12/18 0502 07/12/18 0502 Results 24hrs Laboratory Tests Test 07/12/18 01:15 07/12/18 05:02 Urine Color YELLOW Urine Clarity SLIGHTLY CLOUDY A Urine pH 6.0 Urine Specific [place] 1.020 Urine Ketones NEGATIVE Urine Nitrite NEGATIVE Urine Bilirubin NEGATIVE Urine Urobilinogen 1+ H Urine Leukocyte Esterase NEGATIVE Urine Microscopic RBC 13 H Urine Microscopic WBC 2 Urine Bacteria FEW A Urine Mucus FEW A Urine Hemoglobin NEGATIVE Urine Glucose NEGATIVE Urine Total Protein 2+ H White Blood Count 13.1 #H Red Blood Count 2.91 L Hemoglobin 8.6 L Hematocrit 26.3 L Mean Corpuscular Volume 90.4 Mean Corpuscular Hemoglobin 29.6 Mean Corpuscular Hemoglobin Concent 32.7 Red Cell Distribution Width 16.5 H Platelet Count 230 # Mean Platelet Volume 8.7 Immature Granulocytes % 1.400 H Neutrophils % 79.0 H Lymphocytes % 12.2 L Monocytes % 7.2 Eosinophils % 0.0 Basophils % 0.2 Nucleated Red Blood Cells % 0.0 Immature Granulocytes # 0.190 H Neutrophils # 10.4 H Lymphocytes # 1.6 Monocytes # 1.0 H Eosinophils # 0.0 Basophils # 0.0 Nucleated Red Blood Cells # 0.0 Sodium Level 130 L Potassium Level 4.0 Chloride Level 98 Carbon Dioxide Level 25 Anion Gap 7 Blood Urea Nitrogen 16 Creatinine 0.66 Est Glomerular Filtrat Rate mL/min > 60 Glucose Level 123 Calcium Level 7.9 L Phosphorus Level 2.5 Magnesium Level 2.0 Medications Medication Current Medications IV Flush (NS 3 ml) 3 ml PER PROTOCOL IV ; Start 06/30/18 at 15:00 Acetaminophen/ Hydrocodone Bitart ([place] (5/325)) 1 tab Q6H PRN PO .MOD PAIN 4- 6 Last administered on 06/30/18at 20:09; Admin Dose 1 TAB; Start 06/30/18 at 15:00 Morphine Sulfate (morphine) 2 mg Q4H PRN IV .SEVERE PAIN 7-10; Start 06/30/18 at 15:00 Docusate Sodium (Colace) 100 mg Q12H PRN PO .CONSTIPATION Last administered on 07/12/18 09:06; Admin Dose 100 MG; Start 06/30/18 at 15:00 Zolpidem Tartrate (Ambien) 5 mg QHS PRN PO .INSOMNIA; Start 06/30/18 at 15:00 Acetaminophen (Tylenol Tab) 650 mg Q6H PRN PO PAIN LEVEL 1-3 OR FEVER Last administered on 07/12/18 09:06; Admin Dose 650 MG; Start 06/30/18 at 15:00 Ascorbic Acid (Vitamin C) 500 mg DAILY PO Last administered on 07/12/18at 09:06; Admin Dose 500 MG; Start 07/01/18 at 09:00 Diltiazem HCl (Cardizem) 30 mg TID PO Last administered on 07/12/18 09:11; Adm in Dose 30 MG; Start 06/30/18 at 21:00 Lactobacillus Acidophilus/ Rhamnosus (Culturelle) 1 cap BID PO Last administered on 07/12/18 09:06; Admin Dose 1 CAP; Start 06/30/18 at 21:00 Mirtazapine (Remeron) 15 mg HS PO Last administered on 07/11/18 20:30; Admin Dose 15 MG; Start 06/30/18 at 21:00 Multivitamins Therapeutic (Theragran) 1 tab DAILY PO Last administered on 07/12/18 09:06; Admin Dose 1 TAB; Start 07/01/18 at 09:00 Pantoprazole (Protonix Tab) 40 mg DAILY PO Last administered on 07/12/18 09:12; Admin Dose 40 MG; Start 07/01/18 at 09:00 Zinc Sulfate (Zinc Sulfate) 220 mg DAILY PO Last administered on 07/12/18 09:12; Admin Dose 220 MG; Start 07/01/18 at 09:00 Enoxaparin Sodium (Lovenox) 40 mg DAILY SC Last administered on 07/12/18 09:11; Admin Dose 40 MG; Start 07/01/18 at 09:00 Collagenase (Santyl) 1 applic BID TOP Last administered on 07/12/18 09:08; Admin Dose 1 APPLIC; Start 07/04/18 at 14:30 Aspirin (Aspirin) 81 mg DAILY PO Last administered on 07/12/18 09:05; Admin Dose 81 MG; Start 07/05/18 at 09:00 Folic Acid (Folic Acid) 1 mg DAILY PO Last administered on 07/12/18 09:06; Admin Dose 1 MG; Start 07/05/18 at 09:00 Vancomycin HCl (Vanco Iv Per Pharmacy) VANCOMYCIN PER PHARMACY PER PROTOCOL XX ; Start 07/07/18 at 17:00 Vancomycin/Sodium Chloride 250 ml @ 125 mls/hr Q12H IVPB Last administered on 07/12/18 12:00; Admin Dose 125 MLS/HR; Start 07/08/18 at 12:00 Ondansetron HCl (Zofran Inj) 4 mg Q6H PRN IV NAUSEA AND/OR VOMITING; Start 07/11/18 at 12:00 Miscellaneous Information (*Rx Drug Level Order Reminder*) VANCO TROUGH @ 1,100 ON... 1100 ONCE XX ; Start 07/13/18 at 11:00; Stop 07/13/18 at 11:01 SANDER WILL NP July 12, 2018 14:43
--- NOTE | 2018-07-12 15:19 | CONS ---
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 Would switch to beta-jose, supplement magnesium. Adjust Cardizem to as needed -Antibiotics as per infectious disease -Maintain k>4.0 and Mg>2.0 Consultation Date/Type/Reason Admit Date/Time June 30, 2018 at 08:59 Initial Consult Date 07/03/18 Type of Consult Cardiology Requesting Provider: DEBBIE GALLEGOS MD Date/Time of Note DATE: 07/12/18 TIME: 15:18 24 HR Interval Summary Free Text/Dictation Patient seen and examined. Sleeping currently Exam/Review of Systems Vital Signs Vitals Vital Signs Date Temp Pulse Resp B/P (MAP) Pulse Ox O2 O2 Flow FiO2 Time Delivery Rate 07/12/18 80 12:01 07/12/18 97.8 22 100/58 96 Room Air 11:31 (72) 07/12/18 2.0 08:00 Intake and Output 07/11/18 07/11/18 07/12/18 1515:00 23:00 07:00 IntakeIntake Total 250 ml 1050 ml OutputOutput Total 400 ml BalanceBalance 250 ml 650 ml Exam Exam Sleeping, no apparent distress Head: normocephalic Respiratory: other (Coarse breath sounds bilaterally, no wheezing) Cardiovascular: irregular rhythm (S1-S2 heard) Gastrointestinal: soft, non-tender, bowel sounds Extremities: edema (Trace) Labs Result Diagram: 07/12/18 0502 07/12/18 0502 Results 24hrs Laboratory Tests Test 07/12/18 01:15 07/12/18 05:02 Urine Color YELLOW Urine Clarity SLIGHTLY CLOUDY A Urine pH 6.0 Urine Specific [place] 1.020 Urine Ketones NEGATIVE Urine Nitrite NEGATIVE Urine Bilirubin NEGATIVE Urine Urobilinogen 1+ H Urine Leukocyte Esterase NEGATIVE Urine Microscopic RBC 13 H Urine Microscopic WBC 2 Urine Bacteria FEW A Urine Mucus FEW A Urine Hemoglobin NEGATIVE Urine Glucose NEGATIVE Urine Total Protein 2+ H White Blood Count 13.1 #H Red Blood Count 2.91 L Hemoglobin 8.6 L Hematocrit 26.3 L Mean Corpuscular Volume 90.4 Mean Corpuscular Hemoglobin 29.6 Mean Corpuscular Hemoglobin Concent 32.7 Red Cell Distribution Width 16.5 H Platelet Count 230 # Mean Platelet Volume 8.7 Immature Granulocytes % 1.400 H Neutrophils % 79.0 H Lymphocytes % 12.2 L Monocytes % 7.2 Eosinophils % 0.0 Basophils % 0.2 Nucleated Red Blood Cells % 0.0 Immature Granulocytes # 0.190 H Neutrophils # 10.4 H Lymphocytes # 1.6 Monocytes # 1.0 H Eosinophils # 0.0 Basophils # 0.0 Nucleated Red Blood Cells # 0.0 Sodium Level 130 L Potassium Level 4.0 Chloride Level 98 Carbon Dioxide Level 25 Anion Gap 7 Blood Urea Nitrogen 16 Creatinine 0.66 Est Glomerular Filtrat Rate mL/min > 60 Glucose Level 123 Calcium Level 7.9 L Phosphorus Level 2.5 Magnesium Level 2.0 Medications Medications Current Medications IV Flush (NS 3 ml) 3 ml PER PROTOCOL IV ; Start 06/30/18 at 15:00 Acetaminophen/ Hydrocodone Bitart ([place] (5/325)) 1 tab Q6H PRN PO .MOD PAIN 4- 6 Last administered on 06/30/18 20:09; Admin Dose 1 TAB; Start 06/30/18 at 15:00 Morphine Sulfate (morphine) 2 mg Q4H PRN IV .SEVERE PAIN 7-10; Start 06/30/18 at 15:00 Docusate Sodium (Colace) 100 mg Q12H PRN PO .CONSTIPATION Last administered on 07/12/18 09:06; Admin Dose 100 MG; Start 06/30/18 at 15:00 Zolpidem Tartrate (Ambien) 5 mg QHS PRN PO .INSOMNIA; Start 06/30/18 at 15:00 Acetaminophen (Tylenol Tab) 650 mg Q6H PRN PO PAIN LEVEL 1-3 OR FEVER Last administered on 07/12/18 09:06; Admin Dose 650 MG; Start 06/30/18 at 15:00 Ascorbic Acid (Vitamin C) 500 mg DAILY PO Last administered on 07/12/18 09:06; Admin Dose 500 MG; Start 07/01/18 at 09:00 Diltiazem HCl (Cardizem) 30 mg TID PO Last administered on 07/12/18 09:11; Admin Dose 30 MG; Start 06/30/18 at 21:00 Lactobacillus Acidophilus/ Rhamnosus (Culturelle) 1 cap BID PO Last administered on 07/12/18 09:06; Admin Dose 1 CAP; Start 06/30/18 at 21:00 Mirtazapine (Remeron) 15 mg HS PO Last administered on 07/11/18 20:30; Admin Dose 15 MG; Start 06/30/18 at 21:00 Multivitamins Therapeutic (Theragran) 1 tab DAILY PO Last administered on 07/12/18 09:06; Admin Dose 1 TAB; Start 07/01/18 at 09:00 Pantoprazole (Protonix Tab) 40 mg DAILY PO Last administered on 07/12/18 09:12; Admin Dose 40 MG; Start 07/01/18 at 09:00 Zinc Sulfate (Zinc Sulfate) 220 mg DAILY PO Last administered on 07/12/18 09:12; Admin Dose 220 MG; Start 07/01/18 at 09:00 Enoxaparin Sodium (Lovenox) 40 mg DAILY SC Last administered on 07/12/18 09:11; Admin Dose 40 MG; Start 07/01/18 at 09:00 Collagenase (Santyl) 1 applic BID TOP Last administered on 07/12/18 09:08; Admin Dose 1 APPLIC; Start 07/04/18 at 14:30 Aspirin (Aspirin) 81 mg DAILY PO Last administered on 07/12/18 09:05; Admin Dose 81 MG; Start 07/05/18 at 09:00 Folic Acid (Folic Acid) 1 mg DAILY PO Last administered on 07/12/18 09:06; Admin Dose 1 MG; Start 07/05/18 at 09:00 Vancomycin HCl (Vanco Iv Per Pharmacy) VANCOMYCIN PER PHARMACY PER PROTOCOL XX ; Start 07/07/18 at 17:00 Vancomycin/Sodium Chloride 250 ml @ 125 mls/hr Q12H IVPB Last administered on 07/12/18 12:00; Admin Dose 125 MLS/HR; Start 07/08/18 at 12:00 Ondansetron HCl (Zofran Inj) 4 mg Q6H PRN IV NAUSEA AND/OR VOMITING; Start 07/11/18 at 12:00 Miscellaneous Information (*Rx Drug Level Order Reminder*) VANCO TROUGH @ 1,100 ON... 1100 ONCE XX ; Start 07/13/18 at 11:00; Stop 07/13/18 at 11:01 Meropenem/Sodium Chloride 50 ml @ 100 mls/hr Q12 IVPB ; Start 07/12/18 at 21:00 Charan Cottrell DO July 12, 2018 15:19
[2018-07-12] MEDS ORDERED: DILTIAZEM 30 MG TAB PO PRN (15:30)
[2018-07-12] MEDS ORDERED: MAGNESIUM SULFATE 2 GM/50 ML 50 ML IVPB ONE (15:30)
[2018-07-12] MEDS: METOPROLOL 25 MG TAB PO SCH ×2 (16:07→22:18)
[2018-07-12] MEDS: MIRTAZAPINE 15 MG TAB PO SCH (20:29)
[2018-07-12] MEDS: MEROPENEM 1 GM/50ML(PMX) 50 ML IVPB SCH (22:17)
[2018-07-13] VITALS (9 sets, daily range): BP systolic 119–142; BP diastolic 71–83; PULSE 110–134; RESP 20–22
[2018-07-13] MEDS: METOPROLOL 25 MG TAB PO SCH (05:30)
[2018-07-13] MEDS: FOLIC ACID 1 MG TAB PO SCH (09:00)
[2018-07-13] MEDS: ASPIRIN 81 MG TAB PO SCH (09:00)
--- NOTE | 2018-07-13 10:31 | PN ---
Date/Time of Note Date/Time of Note DATE: 07/13/18 TIME: 10:25 Assessment/Plan VTE Prophylaxis Risk score (from Ns)>0 risk: 3 SCD applied (from Ns): No SCD contraindicated: other Pharmacological prophylaxis: LMWH Lines/Catheters IV Catheter Type (from Nrs): Saline Lock Urinary Cath still in place: Yes Reason Cath still needed: urinary retention Assessment/Plan Hospital Course S: Patient still waiting for PICC placement, likely to be done today. Seen by cardiology and infectious disease teams yesterday. Still having A. fib with slight RVR, but asymptomatic. O: VS- see below PE: Lethargic, NG tube in place Responsive to noxious stimuli RRR CTAB Soft nt nd 2D echo July 07, 2018: Conclusions: Posterior mitral valve leaflet appear moderately thickened. Mild to moderate mitral regurgitation. The regurgitation jet is eccentrically directed which may underestimate the severity of mitral regurgitation. Echogenic structure is seen on the mitral valve, most consistent with vegetation. A/P: 72 yo male with h/o A FIb, detention resident with likely dementia who presents with sepsis and persistent MRSA bacteremia. 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 Cultures did not clear with linezolid so infectious disease team changed to vancomycin 07/07. Cultures appear to have cleared now (preliminary blood culture results from July 07 and are no growth to date)- CT C/A/P shows no metastatic infection -For now continue Abx per ID - they anticipate to keep on IV Vanco for 6 weeks -Awaiting today for PICC placement now -follow-up confirmation of this -Continue per ID surveillance cultures until confirmed negative # Chronic encephalopathy- stable -Monitor -Continue tube feeds for now as not taking much PO. We will need to assess residential need for enteral nutrition -follow-up further speech therapy recommendations. # afib: Had been rate controlled, now with slight RVR but asymptomatic. -Monitor for now, per cardiology team beta-jose added, also continue p.o. Cardizem, follow-up further cardiology recommendations # Schizophrenia -Monitor, continue psychiatric meds # Debility secondary to psychosis - Patient resides in a detention -Monitor, PT courtney Dispo: Dc planning: Now looking for placement to [facility] either today or tomorrow-Case management working on this presently Result Diagram: 07/13/18 0523 07/13/18 0523 Results 24hrs Laboratory Tests Test 07/13/18 05:23 White Blood Count 15.5 H Red Blood Count 2.62 L Hemoglobin 7.9 L Hematocrit 23.3 L Mean Corpuscular Volume 88.9 Mean Corpuscular Hemoglobin 30.2 Mean Corpuscular Hemoglobin Concent 33.9 Red Cell Distribution Width 16.3 H Platelet Count 219 Mean Platelet Volume 9.4 Immature Granulocytes % 1.000 H Neutrophils % 87.4 H Lymphocytes % 6.5 L Monocytes % 4.9 Eosinophils % 0.0 Basophils % 0.2 Nucleated Red Blood Cells % 0.0 Immature Granulocytes # 0.160 H Neutrophils # 13.5 H Lymphocytes # 1.0 Monocytes # 0.8 Eosinophils # 0.0 Basophils # 0.0 Nucleated Red Blood Cells # 0.0 Sodium Level 130 L Potassium Level 3.6 Chloride Level 101 Carbon Dioxide Level 24 Anion Gap 5 Blood Urea Nitrogen 19 Creatinine 0.53 L Est Glomerular Filtrat Rate mL/min > 60 Glucose Level 116 Calcium Level 7.9 L Magnesium Level 2.2 Exam/Review of Systems Exam Vitals Vital Signs Date Temp Pulse Resp B/P (MAP) Pulse Ox O2 O2 Flow FiO2 Time Delivery Rate 07/13/18 112 08:00 07/13/18 97.8 22 133/76 96 Nasal 07:14 (95) Cannula 07/13/18 3.0 02:31 Intake and Output 07/12/18 07/12/18 07/13/18 1515:00 23:00 07:00 IntakeIntake Total 250 ml 1130 ml 1040 ml OutputOutput Total 1200 ml 700 ml BalanceBalance 250 ml -70 ml 340 ml Results Results 24hrs Laboratory Tests Test 07/13/18 05:23 White Blood Count 15.5 H Red Blood Count 2.62 L Hemoglobin 7.9 L Hematocrit 23.3 L Mean Corpuscular Volume 88.9 Mean Corpuscular Hemoglobin 30.2 Mean Corpuscular Hemoglobin Concent 33.9 Red Cell Distribution Width 16.3 H Platelet Count 219 Mean Platelet Volume 9.4 Immature Granulocytes % 1.000 H Neutrophils % 87.4 H Lymphocytes % 6.5 L Monocytes % 4.9 Eosinophils % 0.0 Basophils % 0.2 Nucleated Red Blood Cells % 0.0 Immature Granulocytes # 0.160 H Neutrophils # 13.5 H Lymphocytes # 1.0 Monocytes # 0.8 Eosinophils # 0.0 Basophils # 0.0 Nucleated Red Blood Cells # 0.0 Sodium Level 130 L Potassium Level 3.6 Chloride Level 101 Carbon Dioxide Level 24 Anion Gap 5 Blood Urea Nitrogen 19 Creatinine 0.53 L Est Glomerular Filtrat Rate mL/min > 60 Glucose Level 116 Calcium Level 7.9 L Magnesium Level 2.2 Medications Medication Current Medications IV Flush (NS 3 ml) 3 ml PER PROTOCOL IV ; Start 06/30/18 at 15:00 Acetaminophen/ Hydrocodone Bitart ([place] (5/325)) 1 tab Q6H PRN PO .MOD PAIN 4- 6 Last administered on 06/30/18 20:09; Admin Dose 1 TAB; Start 06/30/18 at 15:00 Morphine Sulfate (morphine) 2 mg Q4H PRN IV .SEVERE PAIN 7-10; Start 06/30/18 at 15:00 Docusate Sodium (Colace) 100 mg Q12H PRN PO .CONSTIPATION Last administered on 07/12/18 09:06; Admin Dose 100 MG; Start 06/30/18 at 15:00 Zolpidem Tartrate (Ambien) 5 mg QHS PRN PO .INSOMNIA; Start 06/30/18 at 15:00 Acetaminophen (Tylenol Tab) 650 mg Q6H PRN PO PAIN LEVEL 1-3 OR FEVER Last administered on 07/12/18 09:06; Admin Dose 650 MG; Start 06/30/18 at 15:00 Ascorbic Acid (Vitamin C) 500 mg DAILY PO Last administered on 07/12/18 09:06; Admin Dose 500 MG; Start 07/01/18 at 09:00 Lactobacillus Acidophilus/ Rhamnosus (Culturelle) 1 cap BID PO Last administered on 07/12/18 20:29; Admin Dose 1 CAP; Start 06/30/18 at 21:00 Mirtazapine (Remeron) 15 mg HS PO Last administered on 07/12/18 20:29; Admin Dose 15 MG; Start 06/30/18 at 21:00 Multivitamins Therapeutic (Theragran) 1 tab DAILY PO Last administered on 07/12/18 09:06; Admin Dose 1 TAB; Start 07/01/18 at 09:00 Pantoprazole (Protonix Tab) 40 mg DAILY PO Last administered on 07/12/18 09:12; Admin Dose 40 MG; Start 07/01/18 at 09:00 Zinc Sulfate (Zinc Sulfate) 220 mg DAILY PO Last administered on 07/12/18 09:12; Admin Dose 220 MG; Start 07/01/18 at 09:00 Enoxaparin Sodium (Lovenox) 40 mg DAILY SC Last administered on 07/12/18 09:11; Admin Dose 40 MG; Start 07/01/18 at 09:00 Collagenase (Santyl) 1 applic BID TOP Last administered on 07/12/18 20:30; Admin Dose 1 APPLIC; Start 07/04/18 at 14:30 Aspirin (Aspirin) 81 mg DAILY PO Last administered on 07/12/18 09:05; Admin Dose 81 MG; Start 07/05/18 at 09:00 Folic Acid (Folic Acid) 1 mg DAILY PO Last administered on 07/12/18 09:06; Admin Dose 1 MG; Start 07/05/18 at 09:00 Vancomycin HCl (Vanco Iv Per Pharmacy) VANCOMYCIN PER PHARMACY PER PROTOCOL XX ; Start 07/07/18 at 17:00 Vancomycin/Sodium Chloride 250 ml @ 125 mls/hr Q12H IVPB Last administered on 07/12/18at 23:55; Admin Dose 125 MLS/HR; Start 07/08/18 at 12:00 Ondansetron HCl (Zofran Inj) 4 mg Q6H PRN IV NAUSEA AND/OR VOMITING; Start 07/11/18 at 12:00 Miscellaneous Information (*Rx Drug Level Order Reminder*) VANCO TROUGH @ 1,100 ON... 1100 ONCE XX ; Start 07/13/18 at 11:00; Stop 07/13/18 at 11:01 Meropenem/Sodium Chloride 50 ml @ 100 mls/hr Q12 IVPB Last administered on 07/12/18at 22:17; Admin Dose 100 MLS/HR; Start 07/12/18 at 21:00 Diltiazem HCl (Cardizem) 30 mg TID PRN PO Sustained heart rate >130; Start 07/12/18 at 15:30 Metoprolol Tartrate (Lopressor) 12.5 mg Q8 PO Last administered on 07/13/18at 05:30; Admin Dose 12.5 MG; Start 5/21/19 at 15:30 SOTO SHERMAN July 13, 2018 10:31
--- NOTE | 2018-07-13 12:10 | CONS ---
Assessment/Plan Assessment/Plan Hospital Course 72 yo M with multiple comorbidities who presents for evaluation of altered mental status. A HCT was obtained and notable for ventriculomegaly and degenerative changes... for which neurology is consulted. The ventriculomegaly is likely chronic, and without acute clinical significance.. LDL 34 P: Cont ASA for secondary stroke prevention; LDL is at goal Recommend repeat neuroimaging for surveillance, as an outpatient [place] as able Limit sedating medications where possible PT/OT/ST as necessary Other management per primary Will follow clinically Consultation Date/Type/Reason Admit Date/Time June 30, 2018 at 08:59 Type of Consult Neurology Reason for Consultation hydrocephalus Requesting Provider: DEBBIE GALLEGOS MD Date/Time of Note DATE: 07/13/18 TIME: 12:10 24 HR Interval Summary Free Text/Dictation Continues acute care. Exam Vital Signs Vitals Vital Signs Date Temp Pulse Resp B/P (MAP) Pulse Ox O2 O2 Flow FiO2 Time Delivery Rate 07/13/18 98.0 123 132/75 96 Nasal 11:18 (94) Cannula 07/13/18 07:14 07/13/18 3.0 02:31 Intake and Output 07/12/18 07/12/18 07/13/18 1515:00 23:00 07:00 IntakeIntake Total 250 ml 1130 ml 1040 ml OutputOutput Total 1200 ml 700 ml BalanceBalance 250 ml -70 ml 340 ml Exam PE: Gen Appearance: No Apparent Distress HEENT: Normocephalic; nasal cannula Cardiovascular: Regular rate Abdomen: Soft Extremities: Dry NE: The patient was awake and alert. Sparsely verbal. Oriented to self. He did not follow any commands. Cranial nerve examination was limited by mental status. Pupils were equal and reactive to light. There was no afferent pupillary defect. Funduscopic examination was limited. Face was grossly symmetric, w/ present corneal and cough reflexes. Tone was normal. Muscle bulk was reduced. I did not see fasciculations. The patient withdrew his extremities to noxious stimuli. Coordination and gait testing was limited by mental status. Arm and leg reflexes were within normal limits and symmetric. Martinez's sign was absent. Plantar responses were flexor. ANDREA NOEL NP July 13, 2018 12:10
--- NOTE | 2018-07-13 12:11 | CONS ---
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 Encephalopathy-improved -Increase dose of beta-jose -Antibiotics as per infectious disease -Maintain k>4.0 and Mg>2.0 Consultation Date/Type/Reason Admit Date/Time June 30, 2018 at 08:59 Initial Consult Date 07/03/18 Type of Consult Cardiology Requesting Provider: DEBBIE GALLEGOS MD Date/Time of Note DATE: 07/13/18 TIME: 12:10 24 HR Interval Summary Free Text/Dictation Patient seen and examined, undergoing PICC line placement Exam/Review of Systems Vital Signs Vitals Vital Signs Date Temp Pulse Resp B/P (MAP) Pulse Ox O2 O2 Flow FiO2 Time Delivery Rate 07/13/18 98.0 123 132/75 96 Nasal 11:18 (94) Cannula 07/13/18 07:14 07/13/18 3.0 02:31 Intake and Output 07/12/18 07/12/18 07/13/18 1515:00 23:00 07:00 IntakeIntake Total 250 ml 1130 ml 1040 ml OutputOutput Total 1200 ml 700 ml BalanceBalance 250 ml -70 ml 340 ml Exam Exam Sleeping, no apparent distress Head: normocephalic Respiratory: other (Coarse breath sounds bilaterally, no wheezing) Cardiovascular: irregular rhythm (S1-S2 heard), systolic murmur Gastrointestinal: soft, non-tender, bowel sounds Extremities: edema Labs Result Diagram: 07/13/1852207/13/18 0523 Results 24hrs Laboratory Tests Test 07/13/18 05:23 White Blood Count 15.5 H Red Blood Count 2.62 L Hemoglobin 7.9 L Hematocrit 23.3 L Mean Corpuscular Volume 88.9 Mean Corpuscular Hemoglobin 30.2 Mean Corpuscular Hemoglobin Concent 33.9 Red Cell Distribution Width 16.3 H Platelet Count 219 Mean Platelet Volume 9.4 Immature Granulocytes % 1.000 H Neutrophils % 87.4 H Lymphocytes % 6.5 L Monocytes % 4.9 Eosinophils % 0.0 Basophils % 0.2 Nucleated Red Blood Cells % 0.0 Immature Granulocytes # 0.160 H Neutrophils # 13.5 H Lymphocytes # 1.0 Monocytes # 0.8 Eosinophils # 0.0 Basophils # 0.0 Nucleated Red Blood Cells # 0.0 Sodium Level 130 L Potassium Level 3.6 Chloride Level 101 Carbon Dioxide Level 24 Anion Gap 5 Blood Urea Nitrogen 19 Creatinine 0.53 L Est Glomerular Filtrat Rate mL/min > 60 Glucose Level 116 Calcium Level 7.9 L Magnesium Level 2.2 Medications Medications Current Medications IV Flush (NS 3 ml) 3 ml PER PROTOCOL IV ; Start 06/30/18 at 15:00 Acetaminophen/ Hydrocodone Bitart ([place] (5/325)) 1 tab Q6H PRN PO .MOD PAIN 4- 6 Last administered on 06/30/18 20:09; Admin Dose 1 TAB; Start 06/30/18 at 15:00 Morphine Sulfate (morphine) 2 mg Q4H PRN IV .SEVERE PAIN 7-10; Start 06/30/18 at 15:00 Docusate Sodium (Colace) 100 mg Q12H PRN PO .CONSTIPATION Last administered on 07/12/18 09:06; Admin Dose 100 MG; Start 06/30/18 at 15:00 Zolpidem Tartrate (Ambien) 5 mg QHS PRN PO .INSOMNIA; Start 06/30/18 at 15:00 Acetaminophen (Tylenol Tab) 650 mg Q6H PRN PO PAIN LEVEL 1-3 OR FEVER Last administered on 07/12/18 09:06; Admin Dose 650 MG; Start 06/30/18 at 15:00 Ascorbic Acid (Vitamin C) 500 mg DAILY PO Last administered on 07/12/18 09:06; Admin Dose 500 MG; Start 07/01/18 at 09:00 Lactobacillus Acidophilus/ Rhamnosus (Culturelle) 1 cap BID PO Last administered on 07/12/18 20:29; Admin Dose 1 CAP; Start 06/30/18 at 21:00 Mirtazapine (Remeron) 15 mg HS PO Last administered on 07/12/18 20:29; Admin Dose 15 MG; Start 06/30/18 at 21:00 Multivitamins Therapeutic (Theragran) 1 tab DAILY PO Last administered on 07/12/18 09:06; Admin Dose 1 TAB; Start 07/01/18 at 09:00 Pantoprazole (Protonix Tab) 40 mg DAILY PO Last administered on 07/12/18 09:12; Admin Dose 40 MG; Start 07/01/18 at 09:00 Zinc Sulfate (Zinc Sulfate) 220 mg DAILY PO Last administered on 07/12/18 09:12; Admin Dose 220 MG; Start 07/01/18 at 09:00 Enoxaparin Sodium (Lovenox) 40 mg DAILY SC Last administered on 07/12/18 09:11; Admin Dose 40 MG; Start 07/01/18 at 09:00 Collagenase (Santyl) 1 applic BID TOP Last administered on 07/12/18 20:30; Admin Dose 1 APPLIC; Start 07/04/18 at 14:30 Aspirin (Aspirin) 81 mg DAILY PO Last administered on 07/12/18 09:05; Admin Dose 81 MG; Start 07/05/18 at 09:00 Folic Acid (Folic Acid) 1 mg DAILY PO Last administered on 07/12/18 09:06; Admin Dose 1 MG; Start 07/05/18 at 09:00 Vancomycin HCl (Vanco Iv Per Pharmacy) VANCOMYCIN PER PHARMACY PER PROTOCOL XX ; Start 07/07/18 at 17:00 Vancomycin/Sodium Chloride 250 ml @ 125 mls/hr Q12H IVPB Last administered on 07/12/18at 23:55; Admin Dose 125 MLS/HR; Start 07/08/18 at 12:00 Ondansetron HCl (Zofran Inj) 4 mg Q6H PRN IV NAUSEA AND/OR VOMITING; Start 07/11/18 at 12:00 Meropenem/Sodium Chloride 50 ml @ 100 mls/hr Q12 IVPB Last administered on 07/12/18at 22:17; Admin Dose 100 MLS/HR; Start 07/12/18 at 21:00 Diltiazem HCl (Cardizem) 30 mg TID PRN PO Sustained heart rate >130; Start 07/12/18 at 15:30 Metoprolol Tartrate (Lopressor) 12.5 mg Q8 PO Last administered on 07/13/18 05:30; Admin Dose 12.5 MG; Start 07/12/18 at 15:30 IV Flush (NS 10 ml) 10 ml PRN PRN IV IV PROTOCOL; Start 07/13/18 at 12:00 Charan Cottrell DO July 13, 2018 12:11
[2018-07-13] MEDS ORDERED: POTASSIUM CHLORIDE 20 MEQ POWDER FOR ORAL SOLN PO ONE (12:30)
[2018-07-13] MEDS: MEROPENEM 1 GM/50ML(PMX) 50 ML IVPB SCH (13:04)
[2018-07-13] MEDS: VANCOMYCIN 750 MG (PMX) 250 ML IVPB SCH (13:04)
[2018-07-13] MEDS: PANTOPRAZOLE (EC) 40 MG TAB PO SCH (13:05)
[2018-07-13] MEDS: COLLAGENASE 5 GM (UD JAR) TOP SCH (13:05)
[2018-07-13] MEDS: ZINC SULFATE 220 MG CAP PO SCH (13:06)
[2018-07-13] MEDS: ASCORBIC ACID 500 MG TAB PO SCH (13:06)
[2018-07-13] MEDS: MULTIVITAMINS THERAPEUTIC TAB PO SCH (13:06)
[2018-07-13] MEDS: LACTOBACILLUS RHAMNOSUS CAP PO SCH (13:07)
[2018-07-13] MEDS: BALSAM PERU/CASTOR OIL 60 GM TUBE TOP SCH (13:09)
--- NOTE | 2018-07-13 13:45 | PDOCDIS ---
Discharge Instructions CONDITION [id number] Patient Condition: [id number] Stable SOTO SHERMAN July 13, 2018 13:45
--- NOTE | 2018-07-13 13:56 | DS ---
Date/Time of Note Date/Time of Note DATE: 07/13/18 TIME: 13:51 Discharge Summary Admission/Discharge Info Admit Date/Time June 30, 2018 at 08:59 Discharge Date/Time Discharge Diagnosis # MRSA bacteremia w/ MV endocarditis- Echo shows mitral valve vegetation. Cu ltures did not clear with linezolid so infectious disease team changed to vancomycin 07/07. Cultures appear to have cleared now (preliminary blood culture results from July 07 and are no growth to date)- CT C/A/P shows no metastatic infection # Chronic encephalopathy- stable -Continue tube feeds for now as not taking much PO. # afib: Had been rate controlled, now with slight RVR but asymptomatic-on new cardiac medications # Schizophrenia # Debility secondary to psychosis - Patient resides in a assisted Patient Condition: Stable Procedures 2D echo July 07, 2018: Conclusions: Posterior mitral valve leaflet appear moderately thickened. Mild to moderate mitral regurgitation. The regurgitation jet is eccentrically directed which may underestimate the severity of mitral regurgitation. Echogenic structure is seen on the mitral valve, most consistent with vegetation Hx of Present Illness 72-year-old male with a history of schizophrenia, A. fib, BPH, debility who resides in a assisted. Patient presents with acute encephalopathy, in the ER UA suggested UTI. Patient is a poor historian and history is obtained from previous documentation. Hospital Course Patient was admitted and seen by infectious disease, neurology, and cardiology teams during this hospital stay. Patient was found with MRSA bacteremia and also mitral valve endocarditis. This was confirmed on the echocardiogram. Patient was placed on appropriate antibiotics for treatment. Over the course of the patient's hospital stay there fever subsided, the white blood cell count was still slightly elevated but trending in the lower direction during this hospital stay. Patient was also treated for urinary tract infection as well, and the repeat blood cultures did not show any further bacterial growth. Patient needed NG tube feeds and tolerated those well. Patient also treated for atrial fibrillation with RVR and has new cardiac medications in place for that. Vital signs were stable on the day of discharge. After getting clearance from the outside solar sales consultant teams patient will be discharged to acute respiratory for center later today in improved condition. Patient has PICC line placed as well. Patient will get 6 weeks of IV antibiotics for treatment of the endocarditis, specifically vancomycin. See printed medicine reconciliation sheet for full list of discharge medications. Home Meds Active Scripts Lactobacillus Rhamnosus GG (Culturelle) 1 Each Capsule, 1 CAP PO BID for 30 Days, CAP Prov:PERLA NARANJO MD 03/19/18 Acetaminophen* (Tylenol*) 325 Mg Tablet, 650 MG PO Q6H PRN for PAIN LEVEL 1-3 OR FEVER for 30 Days, TAB Prov:PERLA NARANJO MD 03/19/18 Diltiazem Hcl* (Cardizem*) 30 Mg Tablet, 30 MG PO TID for 30 Days, TAB Prov:PERLA NARANJO MD 03/19/18 Reported Medications Zinc Sulfate* (Zinc Sulfate*) 220 Mg Tablet, 220 MG PO DAILY, TAB 06/30/18 Ascorbic Acid (Vitamin C) 500 Mg Tab, 500 MG PO DAILY, TAB 06/30/18 Mirtazapine* (Remeron*) 15 Mg Tablet, 15 MG PO HS, TAB 06/30/18 Pantoprazole* (Protonix*) 40 Mg Tablet.dr, 40 MG PO DAILY, TAB 06/30/18 Multivitamins* (Theragran*) 1 Tab Tab, 1 TAB PO DAILY, TAB 06/30/18 Megestrol Acetate* (Megestrol Acetate*) 400 Mg/10 Ml Susp, 400 MG PO BID, ML 06/30/18 Digoxin* (Digitek*) 250 Mcg Tablet, 0.25 MG PO DAILY, TAB 06/30/18 Benztropine Mesylate* (Benztropine Mesylate*) 1 Mg Tablet, 1 MG PO DAILY, TAB 03/13/18 Primary Care Provider Care Physician No Primary Time spent on discharge: > 30 minutes Pending Labs Laboratory Tests Test 07/13/18 05:23 07/13/18 11:36 White Blood Count 15.5 10^3/ul (4.8-10.8) Red Blood Count 2.62 10^6/ul (4.70-6.10) Hemoglobin 7.9 g/dl (14.0-18.0) Hematocrit 23.3 % (42.0-52.0) Mean Corpuscular Volume 88.9 fl (82.0-101.0) Mean Corpuscular Hemoglobin 30.2 pg (29.0-33.0) Mean Corpuscular 33.9 g/dl (32.0-37.0) Hemoglobin Concent Red Cell Distribution Width 16.3 % (11.5-14.5) Platelet Count 219 10^3/UL (140-415) Mean Platelet Volume 9.4 fl (7.4-10.4) Immature Granulocytes % 1.000 % (0.001-0.429) Neutrophils % 87.4 % (39.0-77.0) Lymphocytes % 6.5 % (15.0-51.0) Monocytes % 4.9 % (0.0-11.0) Eosinophils % 0.0 % (0.0-7.0) Basophils % 0.2 % (0.0-2.0) Nucleated Red Blood Cells % 0.0 /100WBC (0.0-0.0) Immature Granulocytes # 0.160 10^3/ul (0.0-0.031) Neutrophils # 13.5 10^3/ul (1.6-7.5) Lymphocytes # 1.0 10^3/ul (0.8-2.9) Monocytes # 0.8 10^3/ul (0.3-0.9) Eosinophils # 0.0 10^3/ul (0.0-0.5) Basophils # 0.0 10^3/ul (0.0-0.1) Nucleated Red Blood Cells # 0.0 10^3/ul (0.0-0.0) Sodium Level 130 mmol/L (135-144) Potassium Level 3.6 mmol/L (3.5-5.1) Chloride Level 101 mmol/L (97-110) Carbon Dioxide Level 24 mmol/L (21-31) Anion Gap 5 (5-13) Blood Urea Nitrogen 19 mg/dl (7-20) Creatinine 0.53 mg/dl (0.61-1.24) Est Glomerular Filtrat > 60 mL/min (>60) Rate mL/min Glucose Level 116 mg/dl (70-220) Calcium Level 7.9 mg/dl (8.4-10.2) Magnesium Level 2.2 mg/dl (1.7-2.5) Vancomycin Level Trough 12.9 ug/ml (10.0-20.0) SOTO SHERMAN July 13, 2018 13:56
[2018-07-13] MEDS: ENOXAPARIN 40 MG/0.4 ML SYG SC SCH (13:59)
[2018-07-13] MEDS ORDERED: METOPROLOL 25 MG TAB PO SCH (14:00)
--- NOTE | 2018-07-13 14:35 | CONS ---
Assessment/Plan Assessment/Plan Hospital Course (Demo Recall) Patient remains lethargic no fevers overnight he is also tachycardic status post PICC line placed today WBC today 15.5 neutrophils 87.4 BUN 19 creatinine 0.53 Repeat urine culture growing gram-negative rods Antimicrobials: Vanco, Merrem Microbiology: Blood cultures since admission grew MRSA, urine culture grew VRE E. coli ESBL and Enterobacter cloaca. Repeat blood cultures on July 07 and -, urine culture negative Antimicrobials: Vanco Indwelling's: Jimenez, NGT, PICC line Physical examination: Fragile elderly man who is in no distress. Head atraumatic normocephalic neck is supple chest rise symmetrical breath sounds diminished bases. Heart: S1-S2. Abdomen soft bowel sounds present. Extremities without cyanosis Assessment: 1. Sepsis with ongoing fevers and leukocytosis 1. 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 Recurrent UTI 3. Acute on chronic encephalopathy 4. Cachexia 5. Atrial fibrillation status post RVR Plan: Clinically unchanged, continues antibiotics, follow repeat blood cultures and final urine culture, continue aspiration precautions, prognosis poor DW RN Consultation Date/Type/Reason Admit Date/Time June 30, 2018 at 08:59 Initial Consult Date 07/03/18 Type of Consult id Requesting Provider: DEBBIE GALLEGOS MD Date/Time of Note DATE: 07/13/18 TIME: 14:34 Exam/Review of Systems Exam Vitals Vital Signs Date Temp Pulse Resp B/P (MAP) Pulse Ox O2 O2 Flow FiO2 Time Delivery Rate 07/13/18 3.0 13:17 07/13/18 110 12:00 07/13/18 98.0 132/75 96 Nasal 11:18 (94) Cannula 07/13/18 22 07:14 Intake and Output 07/12/18 07/12/18 07/13/18 1515:00 23:00 07:00 IntakeIntake Total 250 ml 1130 ml 1040 ml OutputOutput Total 1200 ml 700 ml BalanceBalance 250 ml -70 ml 340 ml Results Result Diagram: 07/13/18 0523 07/13/18 05 Results 24hrs Laboratory Tests Test 07/13/18 05:23 07/13/18 11:36 White Blood Count 15.5 H Red Blood Count 2.62 L Hemoglobin 7.9 L Hematocrit 23.3 L Mean Corpuscular Volume 88.9 Mean Corpuscular Hemoglobin 30.2 Mean Corpuscular Hemoglobin Concent 33.9 Red Cell Distribution Width 16.3 H Platelet Count 219 Mean Platelet Volume 9.4 Immature Granulocytes % 1.000 H Neutrophils % 87.4 H Lymphocytes % 6.5 L Monocytes % 4.9 Eosinophils % 0.0 Basophils % 0.2 Nucleated Red Blood Cells % 0.0 Immature Granulocytes # 0.160 H Neutrophils # 13.5 H Lymphocytes # 1.0 Monocytes # 0.8 Eosinophils # 0.0 Basophils # 0.0 Nucleated Red Blood Cells # 0.0 Sodium Level 130 L Potassium Level 3.6 Chloride Level 101 Carbon Dioxide Level 24 Anion Gap 5 Blood Urea Nitrogen 19 Creatinine 0.53 L Est Glomerular Filtrat Rate mL/min > 60 Glucose Level 116 Calcium Level 7.9 L Magnesium Level 2.2 Vancomycin Level Trough 12.9 Medications Medication Current Medications IV Flush (NS 3 ml) 3 ml PER PROTOCOL IV ; Start 06/30/18 at 15:00 Acetaminophen/ Hydrocodone Bitart ([place] (5/325)) 1 tab Q6H PRN PO .MOD PAIN 4- 6 Last administered on 06/30/18at 20:09; Admin Dose 1 TAB; Start 06/30/18 at 15:00 Morphine Sulfate (morphine) 2 mg Q4H PRN IV .SEVERE PAIN 7-10; Start 06/30/18 at 15:00 Docusate Sodium (Colace) 100 mg Q12H PRN PO .CONSTIPATION Last administered on 07/12/18 09:06; Admin Dose 100 MG; Start 06/30/18 at 15:00 Zolpidem Tartrate (Ambien) 5 mg QHS PRN PO .INSOMNIA; Start 06/30/18 at 15:00 Acetaminophen (Tylenol Tab) 650 mg Q6H PRN PO PAIN LEVEL 1-3 OR FEVER Last administered on 07/12/18 09:06; Admin Dose 650 MG; Start 06/30/18 at 15:00 Ascorbic Acid (Vitamin C) 500 mg DAILY PO Last administered on 07/13/18at 13:06; Admin Dose 500 MG; Start 07/01/18 at 09:00 Lactobacillus Acidophilus/ Rhamnosus (Culturelle) 1 cap BID PO Last administered on 07/13/18 13:07; Admin Dose 1 CAP; Start 06/30/18 at 21:00 Mirtazapine (Remeron) 15 mg HS PO Last administered on 07/12/18 20:29; Admin Dose 15 MG; Start 06/30/18 at 21:00 Multivitamins Therapeutic (Theragran) 1 tab DAILY PO Last administered on 07/13/18 13:06; Admin Dose 1 TAB; Start 07/01/18 at 09:00 Pantoprazole (Protonix Tab) 40 mg DAILY PO Last administered on 07/13/18 13:05; Admin Dose 40 MG; Start 07/01/18 at 09:00 Zinc Sulfate (Zinc Sulfate) 220 mg DAILY PO Last administered on 07/13/18 13:06; Admin Dose 220 MG; Start 07/01/18 at 09:00 Enoxaparin Sodium (Lovenox) 40 mg DAILY SC Last administered on 07/13/18 13:59; Admin Dose 40 MG; Start 07/01/18 at 09:00 Collagenase (Santyl) 1 applic BID TOP Last administered on 07/13/18 13:05; Admin Dose 1 APPLIC; Start 07/04/18 at 14:30 Aspirin (Aspirin) 81 mg DAILY PO Last administered on 07/13/18 09:00; Admin Dose 81 MG; Start 07/05/18 at 09:00 Folic Acid (Folic Acid) 1 mg DAILY PO Last administered on 07/13/18 09:00; Admin Dose 1 MG; Start 07/05/18 at 09:00 Vancomycin HCl (Vanco Iv Per Pharmacy) VANCOMYCIN PER PHARMACY PER PROTOCOL XX ; Start 07/07/18 at 17:00 Vancomycin/Sodium Chloride 250 ml @ 125 mls/hr Q12H IVPB Last administered on 07/13/18 13:04; Admin Dose 125 MLS/HR; Start 07/08/18 at 12:00 Ondansetron HCl (Zofran Inj) 4 mg Q6H PRN IV NAUSEA AND/OR VOMITING; Start 07/11/18 at 12:00 Meropenem/Sodium Chloride 50 ml @ 100 mls/hr Q12 IVPB Last administered on 07/13/18 13:04; Admin Dose 100 MLS/HR; Start 07/12/18 at 21:00 Diltiazem HCl (Cardizem) 30 mg TID PRN PO Sustained heart rate >130; Start 07/12/18 at 15:30 IV Flush (NS 10 ml) 10 ml PRN PRN IV IV PROTOCOL; Start 07/13/18 at 12:00 Metoprolol Tartrate (Lopressor) 25 mg Q8 PO ; Start 07/13/18 at 14:00 SANDER WILL NP July 13, 2018 14:35
== END 2018-07-13 19:31 | disposition short-term general hospital (02) | DRG 871 ==
LOC: E/R 03:32 → 6WM 08:59 → EDBEDREQSVC 09:59
PROVIDERS: ADMIT Internal Medicine; ATTEND Hospitalist
PROC: 02HV33Z Insertion of Infusion Device into Superior Vena Cava, Percutaneous Approach (ICD-10-PCS; principal; 2018-07-13)
PROC: B548ZZA Ultrasonography of Superior Vena Cava, Guidance (ICD-10-PCS; 2018-07-13)
DX: A41.02 Sepsis due to Methicillin resistant Staphylococcus aureus (principal); G92 Toxic encephalopathy; E43 Unspecified severe protein-calorie malnutrition; I33.0 Acute and subacute infective endocarditis; N39.0 Urinary tract infection, site not specified; Z68.1 Body mass index [BMI] 19.9 or less, adult; G91.2 (Idiopathic) normal pressure hydrocephalus; I47.2 Ventricular tachycardia; R65.20 Severe sepsis without septic shock; I48.2 Chronic atrial fibrillation; F20.9 Schizophrenia, unspecified; N40.0 Benign prostatic hyperplasia without lower urinary tract symptoms; L89.620 Pressure ulcer of left heel, unstageable; L89.150 Pressure ulcer of sacral region, unstageable; L89.610 Pressure ulcer of right heel, unstageable; D64.9 Anemia, unspecified; E11.9 Type 2 diabetes mellitus without complications; I10 Essential (primary) hypertension; G93.89 Other specified disorders of brain; F01.50 Vascular dementia, unspecified severity, without behavioral disturbance, psychotic disturbance, mood disturbance, and anxiety
CPT/HCPCS: 36415; 36569; 70450; 71045; 71260; 74177; 76937; 80048; 80053; 80061; 80162; 80202; 81001; 82565; 83036; 83605; 83735; 84100; 84439; 84443; 84484; 84520; 85025; 85610; 85730; 87086; 92526; 92610; 93005; 93306; 93308; 97161; J0696; J1650; J1956; J2185; J3370; J3475; J3480; J7030; J7040; Q9967

== ENCOUNTER 2018-07-16 06:08 | Inpatient (IN) | payer OTHER, MEDICARE ==
[2018-07-16] VITALS (51 sets, daily range): BP systolic 92–142; BP diastolic 51–84; PULSE 90–143; RESP 14–35; Ht 182.9 cm; Wt 63.1 kg
[~2018-07-16] VITALS: Ht 182.9 cm; Wt 63.1 kg
[~2018-07-16 06:08] MED LIST changes: -APIX5TAB PO; +ASC500 PO; -BALS60OI TOP; +DIGO250T PO; -DOCU-216 PO; -HALO5TAB23 PO; +MEG40/1 PO; -METO-429 PO; +MIRT15TA PO; +MULTI PO; -ONDA4VIA6 IV; +PANT40TA3 PO; -POLY17PO6 PO; -TAMS-14 PO; +ZINC220T PO; -ZOLP5TAB PO
[2018-07-16] MEDS ORDERED: VANCOMYCIN IV PER PHARMACY XX SCH ×2 (10:30→12:00)
--- NOTE | 2018-07-16 10:31 | CONS ---
Assessment/Plan Assessment/Plan Assessment/Plan (Daily) CT head is showing new parenchymal hemorrhages. There is normal pressure hydrocephalus as well. There are changes of prior CVA as well. Chest x-ray was reviewed from which is showing mild vascular congestion. Assessment recommendations; 1. Patient admitted with new intraparenchymal hemorrhages, received mannitol at [place] prior to transfer. Being followed by neurologist. 2. Questionable endocarditis. 3. Mild hyponatremia. 4. Mild anemia and thrombocytopenia. 5. Multiple decubitus ulcers. 6. A. fib with RVR. 7. Dementia. Start Cardizem drip to keep heart rate below 100. Continue vancomycin and meropenem. Further recommendations per neurologist and ID [employer] retailer sales consultant. Consultation Date/Type/Reason Admit Date/Time July 16, 2018 at 06:08 Date of Consultation: July 16, 2018 Type of Consult Pulmonary/critical care Patient is a 72-year-old male who has been transferred over from [place] because of acute change in mental status. CT of the head was done which is showing new intraparenchymal multiple areas of hemorrhage. Patient apparently has a history of dementia and by himself was able to give any history whatsoever. Patient however did not appear to be in any distress. Incidentally patient also was in A. fib with RVR. Past medical history; 1. History of dementia 2. Chronic atrial fibrillation. 3. Possible underlying endocarditis. Medications; reviewed. Allergies; penicillin. Social history, family history, occupational history is not available. Review of system; unable to be obtained. General exam; elderly male, awake but noncommunicative. Currently in no distress. Date/Time of Note DATE: 07/16/18 TIME: 10:27 Past Medical History Home Meds Active Scripts Lactobacillus Rhamnosus GG (Culturelle) 1 Each Capsule, 1 CAP PO BID for 30 Days, CAP Prov:PERLA NARANJO MD 03/19/18 Acetaminophen* (Tylenol*) 325 Mg Tablet, 650 MG PO Q6H PRN for PAIN LEVEL 1-3 OR FEVER for 30 Days, TAB Prov:PERLA NARANJO MD 03/19/18 Diltiazem Hcl* (Cardizem*) 30 Mg Tablet, 30 MG PO TID for 30 Days, TAB Prov:PERLA NARANJO MD 03/19/18 Reported Medications Zinc Sulfate* (Zinc Sulfate*) 220 Mg Tablet, 220 MG PO DAILY, TAB 06/30/18 Ascorbic Acid (Vitamin C) 500 Mg Tab, 500 MG PO DAILY, TAB 06/30/18 Mirtazapine* (Remeron*) 15 Mg Tablet, 15 MG PO HS, TAB 06/30/18 Pantoprazole* (Protonix*) 40 Mg Tablet.dr, 40 MG PO DAILY, TAB 06/30/18 Multivitamins* (Theragran*) 1 Tab Tab, 1 TAB PO DAILY, TAB 06/30/18 Megestrol Acetate* (Megestrol Acetate*) 400 Mg/10 Ml Susp, 400 MG PO BID, ML 06/30/18 Digoxin* (Digitek*) 250 Mcg Tablet, 0.25 MG PO DAILY, TAB 06/30/18 Benztropine Mesylate* (Benztropine Mesylate*) 1 Mg Tablet, 1 MG PO DAILY, TAB 03/13/18 Allergies: Coded Allergies: Penicillins (Verified Allergy, Unknown, 06/30/18) Exam/Review of Systems Exam Vitals Vital Signs Date Temp Pulse Resp B/P (MAP) Pulse Ox O2 O2 Flow FiO2 Time Delivery Rate 07/16/18 124 26 105/67 99 09:30 (80) 07/16/18 99.4 Nasal 2.0 09:00 Cannula Exam HEENT exam; supple neck, no JVD. No lymphadenopathy. Midline trachea. No thyromegaly. Pharynx is clear. Chest exam; diminished but clear breath sounds. S1-S2 audible, no murmurs. Irregular rhythm. Tachycardic. Abdomen exam; soft, nondistended. No organomegaly. Bowel sounds audible. Extremity exam; no peripheral edema clubbing. PIPE ASSEMBLY WORKER exam; he is awake but noncommunicative ARIELLE RAMIREZ July 16, 2018 10:31
[2018-07-16] MEDS ORDERED: ONDANSETRON 4 MG INJ IV PRN (11:30)
[2018-07-16] MEDS ORDERED: NACL 0.9% 3 ML SYG IV SCH (11:30)
[2018-07-16] MEDS: DILTIAZEM-D5W 125MG/125ML DRIP 125 ML IV SCH ×2 (11:36→23:34)
--- NOTE | 2018-07-16 11:39 | HP ---
Date/Time of Note Date/Time of Note DATE: 07/16/18 TIME: 11:31 Assessment/Plan VTE Prophylaxis Risk score (from [facility])>0 risk: 10 SCD applied (from [facility]): Yes Pharmacological prophylaxis: NA/contraindicated Pharm contraindication: bleeding Assessment/Plan Hospital Course 1. Acute on chronic encephalopathy Patient with poor baseline mentation secondary to debility from severe schizophrenia Patient with CT head at [place] that showed new intraparenchymal hemorrhage Defer further work-up to neurology who ordered CT brain Monitor ICU 2. History of infectious endocarditis with MRSA bacteremia Recent echo showed mitral valve vegetation Continue vancomycin ID to manage 3. History of A. fib-rate stable Hold home meds 4. History of schizophrenia with debility Patient came [facility] prior to both hospital admission and [place] Prophylaxis: SCDs HPI/ROS Admit Date/Time Admit Date/Time July 16, 2018 at 06:08 Hx of Present Illness Patient is a 72-year-old male with a history of schizophrenia and debility secondary to psychosis with chronic encephalopathy and MRSA bacteremia secondary to mitral valve endocarditis. Patient was recently hospitalized for sepsis and bacteremia, echo showed mitral valve vegetation. Cultures did not clear with Zyvox antibiotics were changed to vancomycin on 07/07. Blood cultures did clear and patient was discharged to [place]. Patient was being followed by neurology and CT brain was ordered which showed new intraparenchymal hemorrhages with midline shift. Patient was transferred to the ICU for further management. Patient is currently nonverbal history is obtained from previous documentation. ROS Subjective hx not possible: pt non-verbal PMH/Family/Social Past Medical History As per HPI Medications Current Medications Diltiazem HCl 125 ml @ 5 mls/hr TITRATE IV ; Start 07/16/18 at 11:00 Vancomycin HCl (Vanco Iv Per Pharmacy) VANCOMYCIN PER PHARMACY PER PROTOCOL XX ; Start 07/16/18 at 10:30 Meropenem/Sodium Chloride 50 ml @ 100 mls/hr Q12 IVPB ; Start 07/16/18 at 11:30 Vancomycin/Sodium Chloride 250 ml @ 125 mls/hr Q12H IVPB ; Start 07/16/18 at 12:00 Coded Allergies: Penicillins (Verified Allergy, Unknown, 06/30/18) Family History Significant Family History: no pertinent family hx Social History Alcohol Use: none Smoking Status: Unknown if ever smoked Drug Use: none Exam/Review of Systems Vital Signs Vitals Vital Signs Date Temp Pulse Resp B/P (MAP) Pulse Ox O2 O2 Flow FiO2 Time Delivery Rate 07/16/18 124 26 105/67 99 09:30 (80) 07/16/18 99.4 Nasal 2.0 09:00 Cannula Exam Constitutional: non-verbal Respiratory: clear to auscultation Cardiovascular: regular rate and rhythm Gastrointestinal: soft; No distended Musculoskeletal: nl extremities to inspection AIDA BRANDT July 16, 2018 11:39
[2018-07-16] MEDS: MEROPENEM 1 GM/50ML(PMX) 50 ML IVPB SCH ×2 (11:46→21:00)
[2018-07-16] MEDS: VANCOMYCIN 750 MG (PMX) 250 ML IVPB SCH ×2 (12:43→21:01)
[2018-07-16] MEDS: NS + KCL 20 MEQ 1,000 ML IV SCH (12:43)
[2018-07-16] MEDS ORDERED: PENDING SANTYL ORDER FOR WOUND CARE XX PRN (13:00)
[2018-07-16] MEDS: morphine 2 MG INJ IV PRN (13:37)
[2018-07-17] VITALS (78 sets, daily range): BP systolic 95–140; BP diastolic 49–84; PULSE 86–116; RESP 15–37
[2018-07-17] MEDS: morphine 2 MG INJ IV PRN ×2 (02:14→11:00)
[2018-07-17] MEDS: NS + KCL 20 MEQ 1,000 ML IV SCH ×2 (02:16→12:14)
[2018-07-17] MEDS: MEROPENEM 1 GM/50ML(PMX) 50 ML IVPB SCH ×2 (08:11→20:10)
--- NOTE | 2018-07-17 09:22 | CONS ---
Assessment/Plan Assessment/Plan Assessment/Plan (Daily) She is currently on Cardizem 5 mg/h. Assessment and recommendations; 1. patient admitted to ICU because of cerebral hemorrhages. Patient has not exhibited any further neurological decline. 2. History of dementia. 3. Chronic atrial fibrillation. Patient also exhibited A. fib with RVR, currently heart rate is well controlled on Cardizem drip. 4. Endocarditis. Currently on appropriate antimicrobial regimen. 5. Mild hyponatremia. 6. Severe anemia. Continue current supportive care. Patient to received packed RBC transfusion today. We will also go for repeat CT imaging of the head. Overall prognosis remains poor. Consultation Date/Type/Reason Admit Date/Time July 16, 2018 at 06:08 Initial Consult Date 07/16/18 Type of Consult Pulmonary/critical care Patient is a 72-year-old male who has been transferred over from [place] because of acute change in mental status. CT of the head was done which is showing new intraparenchymal multiple areas of hemorrhage. Patient apparently has a history of dementia and by himself was able to give any history whatsoever. Patient however did not appear to be in any distress. Incidentally patient also was in A. fib with RVR. Past medical history; 1. History of dementia 2. Chronic atrial fibrillation. 3. Possible underlying endocarditis. Medications; reviewed. Allergies; penicillin. Social history, family history, occupational history is not available. Review of system; unable to be obtained. General exam; elderly male, awake but noncommunicative. Currently in no distress. Date/Time of Note DATE: 07/17/18 TIME: 09:19 24 HR Interval Summary Free Text/Dictation Patient's condition is stable. Has remained hemodynamically stable. No overt seizure activity reported. General exam; elderly male, awake but noncommunicative. Currently in no distress. Exam/Review of Systems Exam Vitals Vital Signs Date Temp Pulse Resp B/P (MAP) Pulse Ox O2 O2 Flow FiO2 Time Delivery Rate 07/17/18 6.0 44 08:05 07/17/18 91 18 103/60 94 06:45 (74) 07/17/18 Nasal 06:30 Cannula 07/17/18 98.1 04:00 Intake and Output 07/16/18 07/16/18 07/17/18 1515:00 23:00 07:00 IntakeIntake Total 512.5 ml 1020 ml 720 ml OutputOutput Total 600 ml 425 ml 300 ml BalanceBalance -87.5 ml 595 ml 420 ml Exam HEENT exam; supple neck, pupils are small bilaterally. Patient is edentulous. Nasogastric tube in place. No neck masses. No JVD. Chest exam; diminished but clear breath sounds. S1-S2 audible, no murmurs. Irregular rhythm. Abdomen exam; soft, scaphoid. No organomegaly. Bowel sounds audible. Extremity exam; no peripheral edema clubbing. 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 Results Result Diagram: 07/17/18 0430 07/17/18 0430 Results 24hrs Laboratory Tests Test 07/17/18 04:30 White Blood Count 11.4 H Red Blood Count 2.14 L Hemoglobin 6.3 *L Hematocrit 19.6 L Mean Corpuscular Volume 91.6 Mean Corpuscular Hemoglobin 29.4 Mean Corpuscular Hemoglobin Concent 32.1 Red Cell Distribution Width 18.1 H Platelet Count 196 # Mean Platelet Volume 11.0 H Immature Granulocytes % 1.000 H Neutrophils % 83.3 H Segmented Neutrophils % (Manual) 85 H Lymphocytes % 7.8 L Lymphocytes % (Manual) 9 L Monocytes % 7.7 Monocytes % (Manual) 5 Eosinophils % 0.0 Eosinophils % (Manual) 1 Basophils % 0.2 Nucleated Red Blood Cells % 0.0 Immature Granulocytes # 0.110 H Neutrophils # 9.5 H Lymphocytes (Manual) 1.0 Lymphocytes # 0.9 Monocytes # 0.9 Monocytes # (Manual) 0.5 Eosinophils # 0.0 Basophils # 0.0 Nucleated Red Blood Cells # 0.0 Platelet Estimate NORMAL Giant Platelets 1 H Polychromasia 1+ Poikilocytosis 1+ Anisocytosis 1+ Macrocytosis 1+ Sodium Level 131 L Potassium Level 4.2 Chloride Level 102 Carbon Dioxide Level 21 Anion Gap 8 Blood Urea Nitrogen 17 Creatinine 0.52 L Est Glomerular Filtrat Rate mL/min > 60 Glucose Level 112 Calcium Level 7.8 L Magnesium Level 2.1 Medications Medication Current Medications Diltiazem HCl 125 ml @ 5 mls/hr TITRATE IV Last administered on 07/16/18at 23:34; Admin Dose 10 MLS/HR; Start 07/16/18 at 11:00 Vancomycin HCl (Vanco Iv Per Pharmacy) VANCOMYCIN PER PHARMACY PER PROTOCOL XX ; Start 07/16/18 at 10:30 Meropenem/Sodium Chloride 50 ml @ 100 mls/hr Q12 IVPB Last administered on 07/17/18at 08:11; Admin Dose 100 MLS/HR; Start 07/16/18 at 11:30 Vancomycin/Sodium Chloride 250 ml @ 125 mls/hr Q12H IVPB Last administered on 07/16/18at 21:01; Admin Dose 125 MLS/HR; Start 07/16/18 at 12:00 Potassium Chloride/Sodium Chloride 1,000 ml @ 80 mls/hr [id number] IV Last administered on 07/17/18at 02:16; Admin Dose 80 MLS/HR; Start 07/16/18 at 12:00 IV Flush (NS 3 ml) 3 ml PER PROTOCOL IV ; Start 07/16/18 at 11:30 Ondansetron HCl (Zofran Inj) 4 mg Q6H PRN IV NAUSEA/VOMITING; Start 07/16/18 at 11:30 Morphine Sulfate (morphine) 2 mg Q4H PRN IV .SEVERE PAIN 7-10 Last administered on 07/17/18at 02:14; Admin Dose 2 MG; Start 07/16/18 at 11:30 Miscellaneous Information (Pending Santyl Order For Wound Care) This patient dugan... PRN PRN XX WOUND CARE; Start 07/16/18 at 13:00 ARIELLE RAMIREZ July 17, 2018 09:22
[2018-07-17] MEDS: VANCOMYCIN 750 MG (PMX) 250 ML IVPB SCH (12:14)
[2018-07-17] MEDS ORDERED: FUROSEMIDE 40 MG INJ IV ONE (15:00)
--- NOTE | 2018-07-17 17:54 | PN ---
Date/Time of Note Date/Time of Note DATE: 07/17/18 TIME: 17:52 Assessment/Plan VTE [place]axis [place] [facility] [place]: 8 [place] [facility] [place] Yes Pharmacological prophylaxis: NA/contraindicated Pharm contraindication: bleeding Assessment/Plan Hospital Course 1. Acute on chronic encephalopathy Patient with poor baseline mentation secondary to debility from severe schizophrenia Patient with CT head at [place] that showed new intraparenchymal hemorrhage Neurosurgery consultation with Dr. Estefany davies 2. History of infectious endocarditis with MRSA bacteremia Recent echo showed mitral valve vegetation Continue vancomycin ID to manage 3. History of A. fib-rate stable Hold home meds 4. History of schizophrenia with debility Patient came from [facility] prior to both hospital admission and [place] Prophylaxis: SCDs DC planning: Follow-up on neurosurgery recommendations Result Diagram: 07/17/18 0430 07/17/18 0430 Results 24hrs Laboratory Tests Test 07/17/18 04:30 07/17/18 16:00 White Blood Count 11.4 H Red Blood Count 2.14 L Hemoglobin 6.3 *L Hematocrit 19.6 L Mean Corpuscular Volume 91.6 Mean Corpuscular Hemoglobin 29.4 Mean Corpuscular Hemoglobin Concent 32.1 Red Cell Distribution Width 18.1 H Platelet Count 196 # Mean Platelet Volume 11.0 H Immature Granulocytes % 1.000 H Neutrophils % 83.3 H Segmented Neutrophils % (Manual) 85 H Lymphocytes % 7.8 L Lymphocytes % (Manual) 9 L Monocytes % 7.7 Monocytes % (Manual) 5 Eosinophils % 0.0 Eosinophils % (Manual) 1 Basophils % 0.2 Nucleated Red Blood Cells % 0.0 Immature Granulocytes # 0.110 H Neutrophils # 9.5 H Lymphocytes (Manual) 1.0 Lymphocytes # 0.9 Monocytes # 0.9 Monocytes # (Manual) 0.5 Eosinophils # 0.0 Basophils # 0.0 Nucleated Red Blood Cells # 0.0 Platelet Estimate NORMAL Giant Platelets 1 H Polychromasia 1+ Poikilocytosis 1+ Anisocytosis 1+ Macrocytosis 1+ Sodium Level 131 L Potassium Level 4.2 Chloride Level 102 Carbon Dioxide Level 21 Anion Gap 8 Blood Urea Nitrogen 17 Creatinine 0.52 L Est Glomerular Filtrat Rate mL/min > 60 Glucose Level 112 Calcium Level 7.8 L Magnesium Level 2.1 Blood Gas Specimen Source Blood arterial Arterial Blood Date Drawn 07/17/2018 3:50:35 PM Arterial Blood pH (Temp corrected) 7.549 H Arterial Blood pCO2 (Temp correct) 23.9 L Arterial Blood pO2 (Temp corrected) 240.1 H Arterial Blood HCO3 20.4 L Arterial Blood Base Excess -1.2 Arterial Blood Oxygen Saturation 99.2 H Zane Test ACCEPTAB Arterial Blood Gas Puncture Site Right Radial Arterial Blood Carboxyhemoglobin 0.2 Arterial Blood Methemoglobin 0.3 Blood Gas A-a O2 Differential 449.0 H Oxyhemoglobin Percent 98.7 Blood Gas Temperature 37.0 Blood Gas Modality MASK - NRB FiO2 100.0 Blood Gas Notified Whom CW Blood Gas Notified Time 07/17/2018 4:00:33 PM Subjective 24 Hr Interval Summary Subjective hx not possible: pt non-verbal Exam/Review of Systems Exam Vitals Vital Signs Date Temp Pulse Resp B/P (MAP) Pulse Ox O2 O2 Flow FiO2 Time Delivery Rate 07/17/18 113 23 123/64 100 Mask 10.0 16:45 (83) 07/17/18 60 16:45 07/17/18 99.5 16:00 Intake and Output 07/16/18 07/16/18 07/17/18 1515:00 23:00 07:00 IntakeIntake Total 512.5 ml 1020 ml 720 ml OutputOutput Total 600 ml 425 ml 300 ml BalanceBalance -87.5 ml 595 ml 420 ml Constitutional: non-verbal Respiratory: clear to auscultation Cardiovascular: regular rate and rhythm Gastrointestinal: soft; No distended Musculoskeletal: nl extremities to inspection Results Results 24hrs Laboratory Tests Test 07/17/18 04:30 07/17/18 16:00 White Blood Count 11.4 H Red Blood Count 2.14 L Hemoglobin 6.3 *L Hematocrit 19.6 L Mean Corpuscular Volume 91.6 Mean Corpuscular Hemoglobin 29.4 Mean Corpuscular Hemoglobin Concent 32.1 Red Cell Distribution Width 18.1 H Platelet Count 196 # Mean Platelet Volume 11.0 H Immature Granulocytes % 1.000 H Neutrophils % 83.3 H Segmented Neutrophils % (Manual) 85 H Lymphocytes % 7.8 L Lymphocytes % (Manual) 9 L Monocytes % 7.7 Monocytes % (Manual) 5 Eosinophils % 0.0 Eosinophils % (Manual) 1 Basophils % 0.2 Nucleated Red Blood Cells % 0.0 Immature Granulocytes # 0.110 H Neutrophils # 9.5 H Lymphocytes (Manual) 1.0 Lymphocytes # 0.9 Monocytes # 0.9 Monocytes # (Manual) 0.5 Eosinophils # 0.0 Basophils # 0.0 Nucleated Red Blood Cells # 0.0 Platelet Estimate NORMAL Giant Platelets 1 H Polychromasia 1+ Poikilocytosis 1+ Anisocytosis 1+ Macrocytosis 1+ Sodium Level 131 L Potassium Level 4.2 Chloride Level 102 Carbon Dioxide Level 21 Anion Gap 8 Blood Urea Nitrogen 17 Creatinine 0.52 L Est Glomerular Filtrat Rate mL/min > 60 Glucose Level 112 Calcium Level 7.8 L Magnesium Level 2.1 Blood Gas Specimen Source Blood arterial Arterial Blood Date Drawn 07/17/2018 3:50:35 PM Arterial Blood pH (Temp corrected) 7.549 H Arterial Blood pCO2 (Temp correct) 23.9 L Arterial Blood pO2 (Temp corrected) 240.1 H Arterial Blood HCO3 20.4 L Arterial Blood Base Excess -1.2 Arterial Blood Oxygen Saturation 99.2 H Zane Test ACCEPTAB Arterial Blood Gas Puncture Site Right Radial Arterial Blood Carboxyhemoglobin 0.2 Arterial Blood Methemoglobin 0.3 Blood Gas A-a O2 Differential 449.0 H Oxyhemoglobin Percent 98.7 Blood Gas Temperature 37.0 Blood Gas Modality MASK - NRB FiO2 100.0 Blood Gas Notified Whom CW Blood Gas Notified Time 07/17/2018 4:00:33 PM Medications Medication Current Medications Diltiazem HCl 125 ml @ 5 mls/hr TITRATE IV Last administered on 07/16/18at 23:34; Admin Dose 10 MLS/HR; Start 07/16/18 at 11:00 Vancomycin HCl (Vanco Iv Per Pharmacy) VANCOMYCIN PER PHARMACY PER PROTOCOL XX ; Start 07/16/18 at 10:30 Meropenem/Sodium Chloride 50 ml @ 100 mls/hr Q12 IVPB Last administered on 07/17/18at 08:11; Admin Dose 100 MLS/HR; Start 07/16/18 at 11:30 Vancomycin/Sodium Chloride 250 ml @ 125 mls/hr Q12H IVPB Last administered on 07/17/18at 12:14; Admin Dose 125 MLS/HR; Start 07/16/18 at 12:00 Potassium Chloride/Sodium Chloride 1,000 ml @ 80 mls/hr [id number] IV Last administered on 07/17/18at 12:14; Admin Dose 80 MLS/HR; Start 07/16/18 at 12:00 IV Flush (NS 3 ml) 3 ml PER PROTOCOL IV ; Start 07/16/18 at 11:30 Ondansetron HCl (Zofran Inj) 4 mg Q6H PRN IV NAUSEA/VOMITING; Start 07/16/18 at 11:30 Morphine Sulfate (morphine) 2 mg Q4H PRN IV .SEVERE PAIN 7-10 Last administered on 07/17/18at 11:00; Admin Dose 2 MG; Start 07/16/18 at 11:30 Miscellaneous Information (Pending [facility] Order For Wound Care) This patient dugan... PRN PRN XX WOUND CARE; Start 07/16/18 at 13:00 Pantoprazole (Protonix Tab) 40 mg DAILY@06 PO ; Start 07/18/18 at 06:00 Miscellaneous Information (*Rx Drug Level Order Reminder*) VANCO TR LEVEL PRIOR... ONCE ONCE XX ; Start 07/17/18 at 23:00; Stop 07/17/18 at 23:01 AIDA BRANDT July 17, 2018 17:54
--- NOTE | 2018-07-17 19:51 | CONS ---
Assessment/Plan Assessment/Plan Hospital Course (Demo Recall) ID [id number] NOTE==> RE-ADMIT from [facility] with CEREBRAL HEMORRHAGING - Dr. Posada team has been following CURRENT ABX: DAY #=>Vanco IV+Merrem 07/17/1842907/17/18 043 HPI/HOSPITAL COURSE Patient is a 72-year-old male who has been transferred over from [place] because of acute change in mental status. CT of the head was done which is showing new intraparenchymal multiple areas of hemorrhage. Patient apparently has a history of dementia and by himself was able to give any history whatsoever. Patient however did not appear to be in any distress. Incidentally patient also was in A. fib with RVR. 24H INTERVAL SUMMARY * Non-responsive, frail, cachetic -- low grade temps, O2 via Face-Mask * NPO was on Tube Feeds via NGT at [place] * Indwelling's: Jimenez, NGT, PICC line MICRO/OTHER * 07/16/18 Urine Cx (-) 24H * 07/13/18 (-)MRSA nares * 07/12/18 BCx (-) * 07/12/18 Urine Cx (+) GNR URINE CULTURE Final PSEUDOMONAS AERUGINOSA <10,000 CFU/ml * 07/05/18 BCx (+) MRSA * 07/04/18 BCx (+) MRSA * 07/01/18 BCx (+) MRSA * 06/30/18 BCx (+) MRSA IMAGING * 07/17/18 CXR: Persistent hazy bilateral infiltrates and effusions with interval development of dense right upper lobe consolidation. Question failure versus pneumonia. * 07/17/[address]: CT of the brain again demonstrates scattered intraparenchymal hemorrhages, largest of which is slightly smaller appearance within the right occipital lobe. The other hemorrhages are stable in appearance with stable appearance of surrounding vasogenic edema. No new hemorrhage is seen. * PHYSICAL EXAMINATION: GENERAL: Cachectic,frail, non-responsive HEENT: AT, NC, FaceMaskO2 NECK: WNL -supple CHEST: Equal chest rise bilaterally without dyspnea on observation EXTREMITIES: Warm, dry, no edema SKIN: No rash, no diaphoresis ID ASSESSMENT 72 yo M admit with: 1. Patient admitted with new intraparenchymal hemorrhages, received mannitol at [place] prior to transfer. Being followed by neurologist. 2. Sepsis with ongoing fevers and leukocytosis 1. 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 Recurrent UTI = GNR PSAR 3. Acute on chronic encephalopathy w/ underlying vascular dementia * CT Brain also noted normal pressure hydrocephalus and changes of prior CVA as well. 4. Cachexia 5. Atrial fibrillation status post RVR 6. Coagulopathy 7. Anemia 8. Thrombocytopenia 9. Multiple decubitus ulcers. 10. Mild hyponatremia. (-)MRSA Nares ABX ALLERGIES: PCN INVASIVES: Jimenez, NGT, PICC line CURRENT ABX: DAY # =>Vanco IV+Merrem ID RECOMMENDATIONS/PLAN: 1. Continue current ABX 2. Will continue to follow . Consultation Date/Type/Reason Admit Date/Time July 16, 2018 at 06:08 Initial Consult Date 07/16/18 Date/Time of Note DATE: 07/17/18 TIME: 19:51 Exam/Review of Systems Exam Vitals Vital Signs Date Temp Pulse Resp B/P (MAP) Pulse Ox O2 O2 Flow FiO2 Time Delivery Rate 07/17/18 98 21 101/61 100 Mask 10.0 18:00 (74) 07/17/18 60 16:45 07/17/18 99.5 16:00 Intake and Output 07/16/18 07/16/18 07/17/18 1515:00 23:00 07:00 IntakeIntake Total 512.5 ml 1020 ml 720 ml OutputOutput Total 600 ml 425 ml 300 ml BalanceBalance -87.5 ml 595 ml 420 ml Results Result Diagram: 07/17/18 0430 07/17/18 0430 Results 24hrs Laboratory Tests Test 07/17/18 04:30 07/17/18 16:00 White Blood Count 11.4 H Red Blood Count 2.14 L Hemoglobin 6.3 *L Hematocrit 19.6 L Mean Corpuscular Volume 91.6 Mean Corpuscular Hemoglobin 29.4 Mean Corpuscular Hemoglobin Concent 32.1 Red Cell Distribution Width 18.1 H Platelet Count 196 # Mean Platelet Volume 11.0 H Immature Granulocytes % 1.000 H Neutrophils % 83.3 H Segmented Neutrophils % (Manual) 85 H Lymphocytes % 7.8 L Lymphocytes % (Manual) 9 L Monocytes % 7.7 Monocytes % (Manual) 5 Eosinophils % 0.0 Eosinophils % (Manual) 1 Basophils % 0.2 Nucleated Red Blood Cells % 0.0 Immature Granulocytes # 0.110 H Neutrophils # 9.5 H Lymphocytes (Manual) 1.0 Lymphocytes # 0.9 Monocytes # 0.9 Monocytes # (Manual) 0.5 Eosinophils # 0.0 Basophils # 0.0 Nucleated Red Blood Cells # 0.0 Platelet Estimate NORMAL Giant Platelets 1 H Polychromasia 1+ Poikilocytosis 1+ Anisocytosis 1+ Macrocytosis 1+ Sodium Level 131 L Potassium Level 4.2 Chloride Level 102 Carbon Dioxide Level 21 Anion Gap 8 Blood Urea Nitrogen 17 Creatinine 0.52 L Est Glomerular Filtrat Rate mL/min > 60 Glucose Level 112 Calcium Level 7.8 L Magnesium Level 2.1 Blood Gas Specimen Source Blood arterial Arterial Blood Date Drawn 07/17/2018 3:50:35 PM Arterial Blood pH (Temp corrected) 7.549 H Arterial Blood pCO2 (Temp correct) 23.9 L Arterial Blood pO2 (Temp corrected) 240.1 H Arterial Blood HCO3 20.4 L Arterial Blood Base Excess -1.2 Arterial Blood Oxygen Saturation 99.2 H Zane Test ACCEPTAB Arterial Blood Gas Puncture Site Right Radial Arterial Blood Carboxyhemoglobin 0.2 Arterial Blood Methemoglobin 0.3 Blood Gas A-a O2 Differential 449.0 H Oxyhemoglobin Percent 98.7 Blood Gas Temperature 37.0 Blood Gas Modality MASK - NRB FiO2 100.0 Blood Gas Notified Whom CW Blood Gas Notified Time 07/17/2018 4:00:33 PM Medications Medication Current Medications Diltiazem HCl 125 ml @ 5 mls/hr TITRATE IV Last administered on 07/16/18at 23:34; Admin Dose 10 MLS/HR; Start 07/16/18 at 11:00 Vancomycin HCl (Vanco Iv Per Pharmacy) VANCOMYCIN PER PHARMACY PER PROTOCOL XX ; Start 07/16/18 at 10:30 Meropenem/Sodium Chloride 50 ml @ 100 mls/hr Q12 IVPB Last administered on 07/17/18at 08:11; Admin Dose 100 MLS/HR; Start 07/16/18 at 11:30 Vancomycin/Sodium Chloride 250 ml @ 125 mls/hr Q12H IVPB Last administered on 07/17/18at 12:14; Admin Dose 125 MLS/HR; Start 07/16/18 at 12:00 Potassium Chloride/Sodium Chloride 1,000 ml @ 80 mls/hr [id number] IV Last administered on 07/17/18at 12:14; Admin Dose 80 MLS/HR; Start 07/16/18 at 12:00 IV Flush (NS 3 ml) 3 ml PER PROTOCOL IV ; Start 07/16/18 at 11:30 Ondansetron HCl (Zofran Inj) 4 mg Q6H PRN IV NAUSEA/VOMITING; Start 07/16/18 at 11:30 Morphine Sulfate (morphine) 2 mg Q4H PRN IV .SEVERE PAIN 7-10 Last administered on 07/17/18at 11:00; Admin Dose 2 MG; Start 07/16/18 at 11:30 Miscellaneous Information (Pending [facility] Order For Wound Care) This patient dugan... PRN PRN XX WOUND CARE; Start 07/16/18 at 13:00 Pantoprazole (Protonix Tab) 40 mg DAILY@06 PO ; Start 07/18/18 at 06:00 Miscellaneous Information (*Rx Drug Level Order Reminder*) VANCO TR LEVEL PRIOR... ONCE ONCE XX ; Start 07/17/18 at 23:00; Stop 07/17/18 at 23:01 NEYDA DUENAS NP July 17, 2018 19:51
[2018-07-18] VITALS (59 sets, daily range): BP systolic 108–141; BP diastolic 54–87; PULSE 92–163; RESP 16–34
[2018-07-18] MEDS: VANCOMYCIN 750 MG (PMX) 250 ML IVPB SCH ×2 (00:34→13:26)
[2018-07-18] MEDS: NS + KCL 20 MEQ 1,000 ML IV SCH ×2 (05:05→14:58)
[2018-07-18] MEDS: PANTOPRAZOLE (EC) 40 MG TAB PO SCH (05:06)
[2018-07-18] MEDS: PANTOPRAZOLE 40 MG INJ IV SCH (05:27)
[2018-07-18] MEDS: MEROPENEM 1 GM/50ML(PMX) 50 ML IVPB SCH ×2 (08:46→20:10)
--- NOTE | 2018-07-18 09:46 | CONS ---
Consult Date/Type/Reason Admit Date/Time July 16, 2018 at 06:08 Initial Consult Date 07/16/18 Type of Consult Pulmonary Date/Time of Note DATE: 07/18/18 TIME: 09:44 Subjective Awake alert but still with significant global weakness. Continues nasal cannula O2 nasogastric tube. Still requiring diltiazem for atrial fibrillation with rapid ventricular rate. Objective Vital Signs Date Temp Pulse Resp B/P (MAP) Pulse Ox O2 O2 Flow FiO2 Time Delivery Rate 07/18/18 120 08:00 07/18/18 22 125/67 99 Nasal 2.0 06:00 (86) Cannula 07/18/18 98.5 04:00 07/17/18 60 16:45 Intake and Output 07/17/18 07/17/18 07/18/18 1515:00 23:00 07:00 IntakeIntake Total 957.00 ml 690 ml 640 ml OutputOutput Total 335 ml 3245 ml 515 ml BalanceBalance 622.00 ml -2555 ml 125 ml Exam GENERAL: Thin elderly cachectic gentleman on nasal cannula O2 VITAL SIGNS: per chart NECK: Supple. No JVD or lymphadenopathy. CARDIAC EXAM: S1, S2. No added sounds or murmurs. CHEST: Diminished air entry bilaterally ABDOMEN: Soft, nontender. No guarding or rebound. EXTREMITIES: No cyanosis, clubbing or edema. NEUROLOGIC: Generalized weakness. Vent Setting Fraction of Inspired Oxygen pe: 60 Results/Medications Result Diagram: 07/18/18 0508 07/18/18 0508 Results 24 hrs Laboratory Tests Test 07/17/18 16:00 07/17/18 23:14 07/18/18 05:08 Blood Gas Specimen Source Blood arterial Arterial Blood Date Drawn 07/17/2018 3:50:35 PM Arterial Blood pH 7.549 H (Temp corrected) Arterial Blood pCO2 23.9 L (Temp correct) Arterial Blood pO2 240.1 H (Temp corrected) Arterial Blood HCO3 20.4 L Arterial Blood Base Excess -1.2 Arterial Blood 99.2 H Oxygen Saturation Zane Test ACCEPTAB Arterial Blood Gas Right Radial Puncture Site Arterial 0.2 Blood Carboxyhemoglobin Arterial Blood Methemoglobin 0.3 Blood Gas A-a O2 449.0 H Differential Oxyhemoglobin Percent 98.7 Blood Gas Temperature 37.0 Blood Gas Modality MASK - NRB FiO2 100.0 Blood Gas Notified Whom CW Blood Gas Notified Time 07/17/2018 4:00:33 PM Vancomycin Level Trough 15.5 White Blood Count 11.4 H Red Blood Count 2.38 L Hemoglobin 7.1 L Hematocrit 22.6 L Mean Corpuscular Volume 95.0 Mean Corpuscular Hemoglobin 29.8 Mean Corpuscular 31.4 L Hemoglobin Concent Red Cell Distribution Width 18.5 H Platelet Count 228 Mean Platelet Volume 10.7 H Immature Granulocytes % 1.100 H Neutrophils % 85.7 H Lymphocytes % 5.9 L Monocytes % 6.9 Eosinophils % 0.2 Basophils % 0.2 Nucleated Red Blood Cells % 0.0 Immature Granulocytes # 0.120 H Neutrophils # 9.8 H Lymphocytes # 0.7 L Monocytes # 0.8 Eosinophils # 0.0 Basophils # 0.0 Nucleated Red Blood Cells # 0.0 Sodium Level 134 L Potassium Level 3.3 L Chloride Level 103 Carbon Dioxide Level 24 Anion Gap 7 Blood Urea Nitrogen 17 Creatinine 0.52 L Est Glomerular Filtrat > 60 Rate mL/min Glucose Level 108 Calcium Level 7.8 L Medications Current Medications Diltiazem HCl 125 ml @ 5 mls/hr TITRATE IV Last administered on 07/16/18at 23:3 4; Admin Dose 10 MLS/HR; Start 07/16/18 at 11:00 Vancomycin HCl (Vanco Iv Per Pharmacy) VANCOMYCIN PER PHARMACY PER PROTOCOL XX ; Start 07/16/18 at 10:30 Meropenem/Sodium Chloride 50 ml @ 100 mls/hr Q12 IVPB Last administered on 07/18/18at 08:46; Admin Dose 100 MLS/HR; Start 07/16/18 at 11:30 Vancomycin/Sodium Chloride 250 ml @ 125 mls/hr Q12H IVPB Last administered on 07/18/18at 00:34; Admin Dose 125 MLS/HR; Start 07/16/18 at 12:00 Potassium Chloride/Sodium Chloride 1,000 ml @ 80 mls/hr [id number] IV Last administered on 07/18/18at 05:05; Admin Dose 80 MLS/HR; Start 07/16/18 at 12:00 IV Flush (NS 3 ml) 3 ml PER PROTOCOL IV ; Start 07/16/18 at 11:30 Ondansetron HCl (Zofran Inj) 4 mg Q6H PRN IV NAUSEA/VOMITING; Start 07/16/18 at 11:30 Morphine Sulfate (morphine) 2 mg Q4H PRN IV .SEVERE PAIN 7-10 Last administered on 07/17/18at 11:00; Admin Dose 2 MG; Start 07/16/18 at 11:30 Miscellaneous Information (Pending [facility] Order For Wound Care) This patient dugan... PRN PRN XX WOUND CARE; Start 07/16/18 at 13:00 Pantoprazole (Protonix Iv) 40 mg DAILY@06 IV Last administered on 07/18/18at 05:27; Admin Dose 40 MG; Start 07/18/18 at 06:00 Assessment/Plan Hospital Course (Demo Recall) Assessment 1. Atrial fibrillation with rapid ventricular rate 2. Acute CVA. 3. Encephalopathy secondary to above 4. Dysphagia with nasogastric tube Plan 1. Neurology recommendations 2. Nasogastric tube feeding 3. Transfusion 1 unit packed red blood cells 4. Continue diltiazem for rate control consider amiodarone 5. Contact the next of kin regarding goals of care 6. DVT and GI prophylaxis Critical care time 40 minutes KELLY GAMEZ MD, [facility] July 18, 2018 09:46
[2018-07-18] MEDS: DILTIAZEM-D5W 125MG/125ML DRIP 125 ML IV SCH (11:00)
--- NOTE | 2018-07-18 11:50 | CONS ---
Assessment/Plan Assessment/Plan Hospital Course (Demo Recall) ID [id number] NOTE==> RE-ADMIT from MEDICINE BOW with CEREBRAL HEMORRHAGING on 07/16/18 - Dr. Posada team has been following CURRENT ABX: DAY #=>Vanco IV+Merrem 07/18/18 0508 07/18/18 0508 HPI/HOSPITAL COURSE Patient is a 72-year-old male who has been transferred over from [place] because of acute change in mental status. CT of the head was done which is showing new intraparenchymal multiple areas of hemorrhage. Patient apparently has a history of dementia and by himself was able to give any history whatsoever. Patient however did not appear to be in any distress. Incidentally patient also was in A. fib with RVR. 24H INTERVAL SUMMARY * Awake alert but still with significant global weakness. Still requiring diltiazem for atrial fibrillation with rapid ventricular rate * Frail, profound weakness, cachetic -- low grade temps, O2 via NC * PRBC tx on order for today * NPO was on Tube Feeds via NGT at [place] * Indwelling's: Jimenez, NGT, PICC line MICRO/OTHER * 07/16/18 Urine Cx (-) 48H * 07/13/18 (-)MRSA nares * 07/12/18 BCx (-) * 07/12/18 Urine Cx (+) GNR URINE CULTURE Final PSEUDOMONAS AERUGINOSA <10,000 CFU/ml * 07/05/18 BCx (+) MRSA * 07/04/18 BCx (+) MRSA * 07/01/18 BCx (+) MRSA * 06/30/18 BCx (+) MRSA IMAGING * 07/17/18 CXR: Persistent hazy bilateral infiltrates and effusions with interval development of dense right upper lobe consolidation. Question failure versus pneumonia. * 07/17/[address]: CT of the brain again demonstrates scattered intraparenchymal hemorrhages, largest of which is slightly smaller appearance within the right occipital lobe. The other hemorrhages are stable in appearance with stable appearance of surrounding vasogenic edema. No new hemorrhage is seen. PHYSICAL EXAMINATION: GENERAL: Cachectic,frail, opens eyes HEENT: AT, NC, dry oral membranes NECK: WNL -supple CHEST: Equal chest rise bilaterally without dyspnea on observation EXTREMITIES: Warm, dry, no edema SKIN: No rash, no diaphoresis ID ASSESSMENT 72 yo M admit with: 1. Patient admitted with new intraparenchymal hemorrhages, received mannitol at [place] prior to transfer. Being followed by neurologist. 2. Sepsis with ongoing fevers and leukocytosis 1. 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 Recurrent UTI = GNR PSAR 3. Acute on chronic encephalopathy w/ underlying vascular dementia * CT Brain also noted normal pressure hydrocephalus and changes of prior CVA as well. 4. Cachexia 5. Atrial fibrillation status post RVR 6. Coagulopathy 7. Anemia 8. Thrombocytopenia 9. Multiple decubitus ulcers. 10. Mild hyponatremia. (-)MRSA Nares ABX ALLERGIES: PCN INVASIVES: Jimenez, NGT, PICC line CURRENT ABX: DAY # =>Vanco IV+Merrem ID RECOMMENDATIONS/PLAN: 1. Continue current ABX 2. PRBC tx on order for today . Consultation Date/Type/Reason Admit Date/Time July 16, 2018 at 06:08 Initial Consult Date 07/16/18 Date/Time of Note DATE: 07/18/18 TIME: 11:46 Exam/Review of Systems Exam Vitals Vital Signs Date Temp Pulse Resp B/P (MAP) Pulse Ox O2 O2 Flow FiO2 Time Delivery Rate 07/18/18 112 26 129/64 95 Nasal 2.0 10:00 (85) Cannula 07/18/18 99.8 08:00 07/17/18 60 16:45 Intake and Output 07/17/18 07/17/18 07/18/18 1515:00 23:00 07:00 IntakeIntake Total 957.00 ml 690 ml 795 ml OutputOutput Total 335 ml 3245 ml 665 ml BalanceBalance 622.00 ml -2555 ml 130 ml Results Result Diagram: 07/18/18 0508 07/18/18 0508 Results 24hrs Laboratory Tests Test 07/17/18 16:00 07/17/18 23:14 07/18/18 05:08 07/18/18 09:55 Blood Gas Blood arterial Specimen Source Arterial Blood 07/17/2018 3:50:3 Date Drawn 5 PM Arterial Blood pH 7.549 H (Temp corrected) Arterial Blood 23.9 L pCO2 (Temp correct) Arterial Blood 240.1 H pO2 (Temp corrected) Arterial Blood 20.4 L HCO3 Arterial Blood -1.2 Base Excess Arterial Blood 99.2 H Oxygen Saturation Zane Test ACCEPTAB Arterial Blood Right Radial Gas Puncture Site Arterial 0.2 Blood Carboxyhemo globin Arterial Blood 0.3 Methemoglobin Blood Gas A-a O2 449.0 H Differential Oxyhemoglobin 98.7 Percent Blood Gas 37.0 Temperature Blood Gas MASK - NRB Modality FiO2 100.0 Blood Gas CW Notified Whom Blood Gas 07/17/2018 4:00:3 Notified Time 3 PM Vancomycin Level 15.5 Trough White Blood Count 11.4 H Red Blood Count 2.38 L Hemoglobin 7.1 L Hematocrit 22.6 L Mean Corpuscular 95.0 Volume Mean Corpuscular 29.8 Hemoglobin Mean Corpuscular 31.4 L Hemoglobin Concen t Red Cell 18.5 H Distribution Width Platelet Count 228 Mean Platelet 10.7 H Volume Immature 1.100 H Granulocytes % Neutrophils % 85.7 H Lymphocytes % 5.9 L Monocytes % 6.9 Eosinophils % 0.2 Basophils % 0.2 Nucleated Red 0.0 Blood Cells % Immature 0.120 H Granulocytes # Neutrophils # 9.8 H Lymphocytes # 0.7 L Monocytes # 0.8 Eosinophils # 0.0 Basophils # 0.0 Nucleated Red 0.0 Blood Cells # Sodium Level 134 L Potassium Level 3.3 L Chloride Level 103 Carbon Dioxide 24 Level Anion Gap 7 Blood Urea 17 Nitrogen Creatinine 0.52 L Est Glomerular > 60 Filtrat Rate mL/min Glucose Level 108 Calcium Level 7.8 L Prothrombin Time 16.6 H Prothrombin Time 1.3 Ratio INR International 1.33 Normalized Ratio Activated 36.8 H Partial Thrombopl ast Time Medications Medication Current Medications Diltiazem HCl 125 ml @ 5 mls/hr TITRATE IV Last administered on 07/16/18at 23:34; Admin Dose 10 MLS/HR; Start 07/16/18 at 11:00 Vancomycin HCl (Vanco Iv Per Pharmacy) VANCOMYCIN PER PHARMACY PER PROTOCOL XX ; Start 07/16/18 at 10:30 Meropenem/Sodium Chloride 50 ml @ 100 mls/hr Q12 IVPB Last administered on 07/18/18at 08:46; Admin Dose 100 MLS/HR; Start 07/16/18 at 11:30 Vancomycin/Sodium Chloride 250 ml @ 125 mls/hr Q12H IVPB Last administered on 07/18/18at 00:34; Admin Dose 125 MLS/HR; Start 07/16/18 at 12:00 Potassium Chloride/Sodium Chloride 1,000 ml @ 80 mls/hr [id number] IV Last admin istered on 07/18/18at 05:05; Admin Dose 80 MLS/HR; Start 07/16/18 at 12:00 IV Flush (NS 3 ml) 3 ml PER PROTOCOL IV ; Start 07/16/18 at 11:30 Ondansetron HCl (Zofran Inj) 4 mg Q6H PRN IV NAUSEA/VOMITING; Start 07/16/18 at 11:30 Morphine Sulfate (morphine) 2 mg Q4H PRN IV .SEVERE PAIN 7-10 Last administered on 07/17/18at 11:00; Admin Dose 2 MG; Start 07/16/18 at 11:30 Miscellaneous Information (Pending [facility] Order For Wound Care) This patient dugan... PRN PRN XX WOUND CARE; Start 07/16/18 at 13:00 Pantoprazole (Protonix Iv) 40 mg DAILY@06 IV Last administered on 07/18/18at 05:27; Admin Dose 40 MG; Start 07/18/18 at 06:00 NEYDA DUENAS NP July 18, 2018 11:50
--- NOTE | 2018-07-18 13:26 | CONS ---
Assessment/Plan Assessment/Plan Assessment/Plan (Daily) 72-year-old male all history taken from medical records transferred from [facility] when he had a sudden change in his mental status and CT scan showed new intraparenchymal hemorrhage patient was transferred to the intensive care unit. Still in the ICU profoundly encephalopathic, and uncontrolled atrial fibrillation. I am asked see patient in palliative care consultation as patient apparently has a past medical history of schizophrenia, and poor quality of life. Multiple attempts have been made to try and contact patient's sister unsuccessfully. There is a nephew that I have called at [phone] and left a message to ask him to return our phone call patient is a full code Consultation Date/Type/Reason Admit Date/Time July 16, 2018 at 06:08 Date/Time of Note DATE: 07/18/18 TIME: 13:23 Past Medical History Medical History: other (Unknown) Home Meds Active Scripts Lactobacillus Rhamnosus GG (Culturelle) 1 Each Capsule, 1 CAP PO BID for 30 Days, CAP Prov:PERLA NARANJO MD 03/19/18 Acetaminophen* (Tylenol*) 325 Mg Tablet, 650 MG PO Q6H PRN for PAIN LEVEL 1-3 OR FEVER for 30 Days, TAB Prov:PERLA NARANJO MD 03/19/18 Diltiazem Hcl* (Cardizem*) 30 Mg Tablet, 30 MG PO TID for 30 Days, TAB Prov:PERLA NARANJO MD 03/19/18 Reported Medications Zinc Sulfate* (Zinc Sulfate*) 220 Mg Tablet, 220 MG PO DAILY, TAB 06/30/18 Ascorbic Acid (Vitamin C) 500 Mg Tab, 500 MG PO DAILY, TAB 06/30/18 Mirtazapine* (Remeron*) 15 Mg Tablet, 15 MG PO HS, TAB 06/30/18 Pantoprazole* (Protonix*) 40 Mg Tablet.dr, 40 MG PO DAILY, TAB 06/30/18 Multivitamins* (Theragran*) 1 Tab Tab, 1 TAB PO DAILY, TAB 06/30/18 Megestrol Acetate* (Megestrol Acetate*) 400 Mg/10 Ml Susp, 400 MG PO BID, ML 06/30/18 Digoxin* (Digitek*) 250 Mcg Tablet, 0.25 MG PO DAILY, TAB 06/30/18 Benztropine Mesylate* (Benztropine Mesylate*) 1 Mg Tablet, 1 MG PO DAILY, TAB 03/13/18 Medications Current Medications Diltiazem HCl 125 ml @ 5 mls/hr TITRATE IV Last administered on 07/16/18at 23:34; Admin Dose 10 MLS/HR; Start 07/16/18 at 11:00 Vancomycin HCl (Vanco Iv Per Pharmacy) VANCOMYCIN PER PHARMACY PER PROTOCOL XX ; Start 07/16/18 at 10:30 Meropenem/Sodium Chloride 50 ml @ 100 mls/hr Q12 IVPB Last administered on 07/18/18at 08:46; Admin Dose 100 MLS/HR; Start 07/16/18 at 11:30 Vancomycin/Sodium Chloride 250 ml @ 125 mls/hr Q12H IVPB Last administered on 07/18/18at 00:34; Admin Dose 125 MLS/HR; Start 07/16/18 at 12:00 Potassium Chloride/Sodium Chloride 1,000 ml @ 80 mls/hr [id number] IV Last administered on 07/18/18at 05:05; Admin Dose 80 MLS/HR; Start 07/16/18 at 12:00 IV Flush (NS 3 ml) 3 ml PER PROTOCOL IV ; Start 07/16/18 at 11:30 Ondansetron HCl (Zofran Inj) 4 mg Q6H PRN IV NAUSEA/VOMITING; Start 07/16/18 at 11:30 Morphine Sulfate (morphine) 2 mg Q4H PRN IV .SEVERE PAIN 7-10 Last administered on 07/17/18at 11:00; Admin Dose 2 MG; Start 07/16/18 at 11:30 Miscellaneous Information (Pending [facility] Order For Wound Care) This patient dugan... PRN PRN XX WOUND CARE; Start 07/16/18 at 13:00 Pantoprazole (Protonix Iv) 40 mg DAILY@06 IV Last administered on 07/18/18at 05:27; Admin Dose 40 MG; Start 07/18/18 at 06:00 Allergies: Coded Allergies: Penicillins (Verified Allergy, Unknown, 06/30/18) Past Surgical History Past Surgical Hx: other Family History Significant Family History: other (Unknown ) Social History Alcohol Use: none Smoking Status: Unknown if ever smoked Drug Use: none, other (Unknown) Exam/Review of Systems Exam Vitals Vital Signs Date Temp Pulse Resp B/P (MAP) Pulse Ox O2 O2 Flow FiO2 Time Delivery Rate 07/18/18 112 26 129/64 95 Nasal 2.0 10:00 (85) Cannula 07/18/18 99.8 08:00 07/17/18 60 16:45 Intake and Output 07/17/18 07/17/18 07/18/18 1515:00 23:00 07:00 IntakeIntake Total 957.00 ml 690 ml 795 ml OutputOutput Total 335 ml 3245 ml 665 ml BalanceBalance 622.00 ml -2555 ml 130 ml Constitutional: non-verbal, frail Head: normocephalic, atraumatic ENMT: nl external ears & nose, nl lips & teeth, nl nasal mucosa & septum Respiratory: clear to auscultation, normal air movement Cardiovascular: regular rate and rhythm, nl pulses Neurological: other (Responds to noxious stimuli with minimal movement not do any purposeful activities, sluggish bilateral oculocephalics, cannot assess cranial nerves) Results Result Diagram: 07/18/18 0508 07/18/18 0508 Results 24hrs Laboratory Tests Test 07/17/18 16:00 07/17/18 23:14 07/18/18 05:08 07/18/18 09:55 Blood Gas Blood arterial Specimen Source Arterial Blood 07/17/2018 3:50:3 Date Drawn 5 PM Arterial Blood pH 7.549 H (Temp corrected) Arterial Blood 23.9 L pCO2 (Temp correct) Arterial Blood 240.1 H pO2 (Temp corrected) Arterial Blood 20.4 L HCO3 Arterial Blood -1.2 Base Excess Arterial Blood 99.2 H Oxygen Saturation Zane Test ACCEPTAB Arterial Blood Right Radial Gas Puncture Site Arterial 0.2 Blood Carboxyhemo globin Arterial Blood 0.3 Methemoglobin Blood Gas A-a O2 449.0 H Differential Oxyhemoglobin 98.7 Percent Blood Gas 37.0 Temperature Blood Gas MASK - NRB Modality FiO2 100.0 Blood Gas CW Notified Whom Blood Gas 07/17/2018 4:00:3 Notified Time 3 PM Vancomycin Level 15.5 Trough White Blood Count 11.4 H Red Blood Count 2.38 L Hemoglobin 7.1 L Hematocrit 22.6 L Mean Corpuscular 95.0 Volume Mean Corpuscular 29.8 Hemoglobin Mean Corpuscular 31.4 L Hemoglobin Concen t Red Cell 18.5 H Distribution Width Platelet Count 228 Mean Platelet 10.7 H Volume Immature 1.100 H Granulocytes % Neutrophils % 85.7 H Lymphocytes % 5.9 L Monocytes % 6.9 Eosinophils % 0.2 Basophils % 0.2 Nucleated Red 0.0 Blood Cells % Immature 0.120 H Granulocytes # Neutrophils # 9.8 H Lymphocytes # 0.7 L Monocytes # 0.8 Eosinophils # 0.0 Basophils # 0.0 Nucleated Red 0.0 Blood Cells # Sodium Level 134 L Potassium Level 3.3 L Chloride Level 103 Carbon Dioxide 24 Level Anion Gap 7 Blood Urea 17 Nitrogen Creatinine 0.52 L Est Glomerular > 60 Filtrat Rate mL/min Glucose Level 108 Calcium Level 7.8 L Prothrombin Time 16.6 H Prothrombin Time 1.3 Ratio INR International 1.33 Normalized Ratio Activated 36.8 H Partial Thrombopl ast Time Medications Medication Current Medications Diltiazem HCl 125 ml @ 5 mls/hr TITRATE IV Last administered on 07/16/18at 23:34; Admin Dose 10 MLS/HR; Start 07/16/18 at 11:00 Vancomycin HCl (Vanco Iv Per Pharmacy) VANCOMYCIN PER PHARMACY PER PROTOCOL XX ; Start 07/16/18 at 10:30 Meropenem/Sodium Chloride 50 ml @ 100 mls/hr Q12 IVPB Last administered on 07/18/18at 08:46; Admin Dose 100 MLS/HR; Start 07/16/18 at 11:30 Vancomycin/Sodium Chloride 250 ml @ 125 mls/hr Q12H IVPB Last administered on 07/18/18at 00:34; Admin Dose 125 MLS/HR; Start 07/16/18 at 12:00 Potassium Chloride/Sodium Chloride 1,000 ml @ 80 mls/hr [id number] IV Last administered on 07/18/18at 05:05; Admin Dose 80 MLS/HR; Start 07/16/18 at 12:00 IV Flush (NS 3 ml) 3 ml PER PROTOCOL IV ; Start 07/16/18 at 11:30 Ondansetron HCl (Zofran Inj) 4 mg Q6H PRN IV NAUSEA/VOMITING; Start 07/16/18 at 11:30 Morphine Sulfate (morphine) 2 mg Q4H PRN IV .SEVERE PAIN 7-10 Last administered on 07/17/18at 11:00; Admin Dose 2 MG; Start 07/16/18 at 11:30 Miscellaneous Information [facility]) This patient dugan... PRN PRN XX WOUND CARE; Start 07/16/18 at 13:00 Pantoprazole (Protonix Iv) 40 mg DAILY@06 IV Last administered on 07/18/18at 05:27; Admin Dose 40 MG; Start 07/18/18 at 06:00 SANCHEZ YEBOAH July 18, 2018 13:26
--- NOTE | 2018-07-18 13:55 | CONS ---
DATE OF ADMISSION: 07/16/2018 DATE OF CONSULTATION: 07/18/2018 TYPE OF CONSULTATION: Neurosurgical. REQUESTING PHYSICIAN: Augustus Cheatham MD INDICATION FOR CONSULTATION: Intracranial hemorrhage. HISTORY OF PRESENT ILLNESS: The patient is a 72-year-old male with reported history of schizophrenia, atrial fibrillation as well as infective endocarditis with MRSA and acute on chronic encephalopathy. The patient was at [facility]. Notes from that admission are not available, but per report, the patient is being followed by neurology and for some unknown neurologic change, CT scan was ordered on 07/15/2018. This showed multiple no intraparenchymal hemorrhages since previous scan on 06/30/2018. That original scan had shown some ventriculomegaly though felt to be disproportionate with atrophy and the patient was felt to have had normal pressure hydrocephalus. It is not clear if the patient previously had this diagnosis or if this diagnosis was obtained simply from that scan. The CT scan on 07/15/2018 was interpreted to show new hemorrhages in the right parietal and occipital lobe measuring up to 3 mm. There is some fluid hemorrhage level layering trigone region of the right lateral ventricle. There is infarction in the left cerebellum which was present in the 06/30/2018 study and the dilated ventricles again seen which was felt to be compatible with normal pressure hydrocephalus, but there has been no significant interval change since 06/30/2018. The patient had a repeat CT scan 2 days later which again showed the hemorrhages though largest was slightly smaller within the right occipital lobe and other hemorrhages were felt to be stable however, now with some surrounding vasogenic edema and no new hemorrhages were seen. It is not clear the indication but the patient was then transferred to the ICU here and neurosurgical consultation was requested. The patient was not reportedly taking any antiplatelet or blood thinning medications and normal platelet count. As of yet no coagulation panel has been sent. The patient is lying in the hospital bed. He will awaken and will occasionally speak. Most of the time, the patient mumbles though occasionally, he is lucid. He will only answer some questions, but will follow commands. He denies any headache, nausea or vomiting, but would not again answer questions, speak spontaneously or provide narrative of his situation. PAST MEDICAL HISTORY: Significant for endocarditis and MRSA on vancomycin. He had an echo that reportedly showed mitral valve vegetation, history of atrial fibrillation, schizophrenia with debility and encephalopathy that predates the hemorrhages. FAMILY HISTORY: Unable to obtain secondary to patient's condition, but no reported family history issues in the medical records. MEDICATIONS: Include: 1. Diltiazem. 2. Vancomycin. 3. Meropenem. ALLERGIES: PENICILLIN. REVIEW OF SYSTEMS: Unable to reliably obtain secondary to patient's condition, but the patient when asked regarding fevers, chills or weight loss, the patient denied as well as any bleeding issues. Again given the patient's neurologic condition, I would not think this reliable. SOCIAL HISTORY: Per report, the patient is nondrinker, unknown smoking history, unknown history of illicit drug abuse. PHYSICAL EXAMINATION: VITAL SIGNS: The patient's temperature is 98.5, pulse 120, respirations 22, blood pressure 125/67, saturating 99% on room air. GENERAL: The patient is a thin, elderly male lying in the hospital bed in no acute distress. HEAD AND NECK: He is normocephalic, atraumatic. He is lying on his right side. CARDIAC: Regular rate and rhythm. LUNGS: Clear to auscultation. ABDOMEN: Nontender, nondistended, soft. EXTREMITIES: No clubbing, cyanosis or edema. The patient's lower extremities appear to have in some extensor position. He has some ecchymosis in various parts of extremities. NEUROLOGIC: The patient is awake. He will intermittently open his eyes. He did open his mouth and speak clearly though mostly avoids answering questions and just murmurs yes or no. The patient would follow some commands, though it was variable. For example, I asked him to lift his arm and squeeze fingers of both hands, he would not do this but when I lifted his arm, he held it in place. He did open his mouth to stick out his tongue when asked. The patient's motor exam is difficult to assess as again the patient appears to have grossly normal strength in at least his left upper extremity, though his right appeared to be more weak though the extent of which is unclear as he would not provide resistance and compliant for exam. His lower extremities when attempted to move, flexes his ankles or bends his legs, he expressed significant discomfort and would resist moving them. The patient's sensation is unable to clearly obtain secondary to neurologic condition. He did not have a Babinski sign. Deep tendon reflexes were generally absent and I cannot assess his clonus again secondary to patient's report of pain. LABORATORY DATA: White count 11.4, hemoglobin was initially 6.3 and currently 7.1, platelet count 228. His sodium is 134, BUN and creatinine 17 and 0.52, potassium 3.3. IMAGING: Three CT scans of the head were reviewed including CT scan 07/15/2018, 07/17/[address] scan from 06/30/2018. All these scans show some ventriculomegaly though no subcortical effacement or transependymal edema to suggest increased intracranial pressure. The scans from 07/15/2018 and 07/17/2018 do show evidence of acute hemorrhages that are stable. ASSESSMENT AND PLAN: A 72-year-old male with multiple intracranial hemorrhages. The patient has intracranial bleeds; however, these are multiple. I do not believe any of these are operative as they are eloquent cortex and none are causing significant mass effect or shift or appear to be life threatening. The etiologies of these are unclear and should be evaluated. They are likely embolic with secondary hemorrhagic conversion given the fact that the patient has known mitral valve disease. Mycotic aneurysms are possible, but these are not subarachnoid bleed and the distribution intraparenchymal suggests simply hemorrhagic conversion of strokes. There is some slight intraventricular blood that is layering on the temporal horns, but overall there is not significant blood and no evidence of increase in ventricular size. I do not have a clear picture of the patient's baseline neurologic examination, but given these bleeds, he likely has some new focal deficits, but the patient is awake. The extent of his neurologic deficit versus mental status changes due to his schizophrenia and/or reported chronic encephalopathy that existed prior to the patient having these bleeds is also not clear. The patient reportedly does have neurologist to follow him up for such issues, but currently I do not see any indication for any type of acute neurosurgical intervention. Moreover, the patient has had an interval of 2 days with stable hemorrhages; therefore, it is unlikely after this period of time that there would be progression of bleeding barring any type of coagulopathy. The patient should obviously stay off of anticoagulant medications until such time that the bleed resolved. Coagulopathy panel will be sent as it does not appear the patient has had recent PT or PTT. Prothrombin time will be sent. If the patient has any coagulopathy, this should be corrected, but otherwise I do not currently see an indication for any acute neurosurgical issue. The patient can be evaluated as an outpatient by his neurologist. It is felt that the patient truly has normal pressure hydrocephalus, though in this acute setting, there would be no indication for any type of treatment without further workup given lack of history and clear baseline neurologic status. Thank you for allowing me to participate in the care of this patient. Dictated By: JAKE ABURTO MD, LG/NAYA Conf#: [id number] DID#: [id number] CC: PERLA NARANJO MD; AUGUSTUS CHEATHAM MD; KWABENA MAGAÑA MD;*EndCC* MTDD
--- NOTE | 2018-07-18 14:24 | CONS ---
Assessment/Plan Assessment/Plan Hospital Course (Demo Recall) 72 yo unfortunate man with encephalopathy and new brain bleed transferred to ICU for further care. He has rapid atrial fibrillation and is currently on a cardizem drip, and has had short runs of VT. 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 Metoprolol IV can be given as needed for rapid rate, and ng metoprolol tartrate can be added for rate control. Clearly anticoagulation is contraindicated in the setting of a brain bleed. Dr. Cottrell to return tomorrow. 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 He also has persistent atrial fibrillation. Recently he was at [facility], had a sudden change in his mental status and CT scan showed new intraparenchymal hemorrhage patient was transferred to the intensive care unit. He is obtunded and unable to provide any history. Atrial fibrillation was somewhat rapid at [place], with some short runs of NSVT. At present rate is in the low 100's in atrial fibrillation, and he had a short 16 beat run of NSVT. He is on a diltiazem drip. Subjective hx not possible: pt non-verbal Past Medical History Medical History: GERD, other (atrial fibrillation, endocarditis, schizophrenia) Home Meds Active Scripts Lactobacillus Rhamnosus GG (Culturelle) 1 Each Capsule, 1 CAP PO BID for 30 Days, CAP Prov:PERLA NARANJO MD 03/19/18 Acetaminophen* (Tylenol*) 325 Mg Tablet, 650 MG PO Q6H PRN for PAIN LEVEL 1-3 OR FEVER for 30 Days, TAB Prov:PERLA NARANJO MD 03/19/18 Diltiazem Hcl* (Cardizem*) 30 Mg Tablet, 30 MG PO TID for 30 Days, TAB Prov:PERLA NARANJO MD 03/19/18 Reported Medications Zinc Sulfate* (Zinc Sulfate*) 220 Mg Tablet, 220 MG PO DAILY, TAB 06/30/18 Ascorbic Acid (Vitamin C) 500 Mg Tab, 500 MG PO DAILY, TAB 06/30/18 Mirtazapine* (Remeron*) 15 Mg Tablet, 15 MG PO HS, TAB 06/30/18 Pantoprazole* (Protonix*) 40 Mg Tablet.dr, 40 MG PO DAILY, TAB 06/30/18 Multivitamins* (Theragran*) 1 Tab Tab, 1 TAB PO DAILY, TAB 06/30/18 Megestrol Acetate* (Megestrol Acetate*) 400 Mg/10 Ml Susp, 400 MG PO BID, ML 06/30/18 Digoxin* (Digitek*) 250 Mcg Tablet, 0.25 MG PO DAILY, TAB 06/30/18 Benztropine Mesylate* (Benztropine Mesylate*) 1 Mg Tablet, 1 MG PO DAILY, TAB 03/13/18 Medications Current Medications Vancomycin HCl (Vanco Iv Per Pharmacy) VANCOMYCIN PER PHARMACY PER PROTOCOL XX ; Start 07/16/18 at 10:30 Meropenem/Sodium Chloride 50 ml @ 100 mls/hr Q12 IVPB Last administered on 07/18/18at 08:46; Admin Dose 100 MLS/HR; Start 07/16/18 at 11:30 Vancomycin/Sodium Chloride 250 ml @ 125 mls/hr Q12H IVPB Last administered on 07/18/18at 13:26; Admin Dose 125 MLS/HR; Start 07/16/18 at 12:00 Potassium Chloride/Sodium Chloride 1,000 ml @ 80 mls/hr [id number] IV Last administered on 07/18/18at 05:05; Admin Dose 80 MLS/HR; Start 07/16/18 at 12:00 IV Flush (NS 3 ml) 3 ml PER PROTOCOL IV ; Start 07/16/18 at 11:30 Ondansetron HCl (Zofran Inj) 4 mg Q6H PRN IV NAUSEA/VOMITING; Start 07/16/18 at 11:30 Morphine Sulfate (morphine) 2 mg Q4H PRN IV .SEVERE PAIN 7-10 Last administered on 07/17/18at 11:00; Admin Dose 2 MG; Start 07/16/18 at 11:30 Miscellaneous Information (Pending Santyl Order For Wound Care) This patient dugan... PRN PRN XX WOUND CARE; Start 07/16/18 at 13:00 Pantoprazole (Protonix Iv) 40 mg DAILY@06 IV Last administered on 07/18/18at 05:27; Admin Dose 40 MG; Start 07/18/18 at 06:00 Diltiazem HCl (Cardizem) 60 mg Q6 GTB ; Start 07/18/18 at 14:30; Status UNV Metoprolol Tartrate (Lopressor) 5 mg Q1H PRN IV heart rate over 120; Start 07/18/18 at 14:30; Status UNV Allergies: Coded Allergies: Penicillins (Verified Allergy, Unknown, 06/30/18) Past Surgical History Past Surgical Hx: other Social History Alcohol Use: none Smoking Status: Unknown if ever smoked Drug Use: none, other (Unknown) Exam/Review of Systems Vital Signs Vitals Vital Signs Date Temp Pulse Resp B/P (MAP) Pulse Ox O2 O2 Flow FiO2 Time Delivery Rate 07/18/18 99 26 131/66 100 Nasal 2.0 13:45 (87) Cannula 07/18/18 99.0 12:00 07/17/18 60 16:45 Intake and Output 07/17/18 07/17/18 07/18/18 1515:00 23:00 07:00 IntakeIntake Total 957.00 ml 690 ml 795 ml OutputOutput Total 335 ml 3245 ml 665 ml BalanceBalance 622.00 ml -2555 ml 130 ml Exam Constitutional: non-verbal, frail Psych: other Head: atraumatic Eyes: nl lids ENMT: nl external ears & nose, other (NGT in place) Neck: No jvd, No bruits Respiratory: clear to auscultation, normal air movement Cardiovascular: irregular rhythm; No murmurs/extra sounds Gastrointestinal: soft, non-tender Musculoskeletal: swelling (of both hands and forearms) Neurological: unresponsive Skin: nl turgor Labs Result Diagram: 07/18/18 0508 07/18/18 0508 Results 24hrs Laboratory Tests Test 07/17/18 16:00 07/17/18 23:14 07/18/18 05:08 07/18/18 09:55 Blood Gas Blood arterial Specimen Source Arterial Blood 07/17/2018 3:50:3 Date Drawn 5 PM Arterial Blood pH 7.549 H (Temp corrected) Arterial Blood 23.9 L pCO2 (Temp correct) Arterial Blood 240.1 H pO2 (Temp corrected) Arterial Blood 20.4 L HCO3 Arterial Blood -1.2 Base Excess Arterial Blood 99.2 H Oxygen Saturation Zane Test ACCEPTAB Arterial Blood Right Radial Gas Puncture Site Arterial 0.2 Blood Carboxyhemo globin Arterial Blood 0.3 Methemoglobin Blood Gas A-a O2 449.0 H Differential Oxyhemoglobin 98.7 Percent Blood Gas 37.0 Temperature Blood Gas MASK - NRB Modality FiO2 100.0 Blood Gas CW Notified Whom Blood Gas 07/17/2018 4:00:3 Notified Time 3 PM Vancomycin Level 15.5 Trough White Blood Count 11.4 H Red Blood Count 2.38 L Hemoglobin 7.1 L Hematocrit 22.6 L Mean Corpuscular 95.0 Volume Mean Corpuscular 29.8 Hemoglobin Mean Corpuscular 31.4 L Hemoglobin Concen t Red Cell 18.5 H Distribution Width Platelet Count 228 Mean Platelet 10.7 H Volume Immature 1.100 H Granulocytes % Neutrophils % 85.7 H Lymphocytes % 5.9 L Monocytes % 6.9 Eosinophils % 0.2 Basophils % 0.2 Nucleated Red 0.0 Blood Cells % Immature 0.120 H Granulocytes # Neutrophils # 9.8 H Lymphocytes # 0.7 L Monocytes # 0.8 Eosinophils # 0.0 Basophils # 0.0 Nucleated Red 0.0 Blood Cells # Sodium Level 134 L Potassium Level 3.3 L Chloride Level 103 Carbon Dioxide 24 Level Anion Gap 7 Blood Urea 17 Nitrogen Creatinine 0.52 L Est Glomerular > 60 Filtrat Rate mL/min Glucose Level 108 Calcium Level 7.8 L Prothrombin Time 16.6 H Prothrombin Time 1.3 Ratio INR International 1.33 Normalized Ratio Activated 36.8 H Partial Thrombopl ast Time Imaging Imaging Per Dr. Cottrell's [place] consultation on 07/14/2018, patient's last echo demonstrates normal lv systolic function, moderate aortic regurgitation, mild mitral regurgitation with an echodense structure concerning for endocarditis, and mild-moderate tricuspid regurgitation. Medications Medications Current Medications Vancomycin HCl (Vanco Iv Per Pharmacy) VANCOMYCIN PER PHARMACY PER PROTOCOL XX ; Start 07/16/18 at 10:30 Meropenem/Sodium Chloride 50 ml @ 100 mls/hr Q12 IVPB Last administered on 07/18/18at 08:46; Admin Dose 100 MLS/HR; Start 07/16/18 at 11:30 Vancomycin/Sodium Chloride 250 ml @ 125 mls/hr Q12H IVPB Last administered on 07/18/18at 13:26; Admin Dose 125 MLS/HR; Start 07/16/18 at 12:00 Potassium Chloride/Sodium Chloride 1,000 ml @ 80 mls/hr [id number] IV Last a dministered on 07/18/18at 05:05; Admin Dose 80 MLS/HR; Start 07/16/18 at 12:00 IV Flush (NS 3 ml) 3 ml PER PROTOCOL IV ; Start 07/16/18 at 11:30 Ondansetron HCl (Zofran Inj) 4 mg Q6H PRN IV NAUSEA/VOMITING; Start 07/16/18 at 11:30 Morphine Sulfate (morphine) 2 mg Q4H PRN IV .SEVERE PAIN 7-10 Last administered on 07/17/18at 11:00; Admin Dose 2 MG; Start 07/16/18 at 11:30 Miscellaneous Information (Pending Santyl Order For Wound Care) This patient dugan... PRN PRN XX WOUND CARE; Start 07/16/18 at 13:00 Pantoprazole (Protonix Iv) 40 mg DAILY@06 IV Last administered on 07/18/18at 05:27; Admin Dose 40 MG; Start 07/18/18 at 06:00 Diltiazem HCl (Cardizem) 60 mg Q6 GTB ; Start 07/18/18 at 14:30; Status UNV Metoprolol Tartrate (Lopressor) 5 mg Q1H PRN IV heart rate over 120; Start 07/18/18 at 14:30; Status UNV YOLANDA LINDQUIST July 18, 2018 14:24
[2018-07-18] MEDS ORDERED: METOPROLOL 5 MG INJ IV PRN (14:30)
[2018-07-18] MEDS: DILTIAZEM 60 MG TAB GTB SCH ×2 (16:48→20:10)
--- NOTE | 2018-07-18 17:55 | PN ---
Date/Time of Note Date/Time of Note DATE: 07/18/18 TIME: 17:55 Assessment/Plan [place] [facility] [place]: 9 [place] [facility] [place] Yes Pharmacological prophylaxis: heparin Lines/Catheters IV Catheter Type (from [facility] PICC Line Central line still needed: Yes Urinary Cath still in place: Yes Reason Cath still needed: urinary retention Assessment/Plan Result Diagram: 07/18/18 0508 07/18/18 0508 Results 24hrs Laboratory Tests Test 07/17/18 23:14 07/18/18 05:08 07/18/18 09:55 Vancomycin Level Trough 15.5 White Blood Count 11.4 H Red Blood Count 2.38 L Hemoglobin 7.1 L Hematocrit 22.6 L Mean Corpuscular Volume 95.0 Mean Corpuscular Hemoglobin 29.8 Mean Corpuscular Hemoglobin Concent 31.4 L Red Cell Distribution Width 18.5 H Platelet Count 228 Mean Platelet Volume 10.7 H Immature Granulocytes % 1.100 H Neutrophils % 85.7 H Lymphocytes % 5.9 L Monocytes % 6.9 Eosinophils % 0.2 Basophils % 0.2 Nucleated Red Blood Cells % 0.0 Immature Granulocytes # 0.120 H Neutrophils # 9.8 H Lymphocytes # 0.7 L Monocytes # 0.8 Eosinophils # 0.0 Basophils # 0.0 Nucleated Red Blood Cells # 0.0 Sodium Level 134 L Potassium Level 3.3 L Chloride Level 103 Carbon Dioxide Level 24 Anion Gap 7 Blood Urea Nitrogen 17 Creatinine 0.52 L Est Glomerular Filtrat Rate mL/min > 60 Glucose Level 108 Calcium Level 7.8 L Prothrombin Time 16.6 H Prothrombin Time Ratio 1.3 INR International Normalized Ratio 1.33 Activated Partial Thromboplast Time 36.8 H Exam/Review of Systems Exam Vitals Vital Signs Date Temp Pulse Resp B/P (MAP) Pulse Ox O2 O2 Flow FiO2 Time Delivery Rate 07/18/18 98 16:00 07/18/18 3.0 15:48 07/18/18 26 120/60 97 Nasal 15:45 (80) Cannula 07/18/18 99.0 12:00 07/17/18 60 16:45 Intake and Output 07/17/18 07/17/18 07/18/18 1515:00 23:00 07:00 IntakeIntake Total 957.00 ml 690 ml 795 ml OutputOutput Total 335 ml 3245 ml 665 ml BalanceBalance 622.00 ml -2555 ml 130 ml Results Results 24hrs Laboratory Tests Test 07/17/18 23:14 07/18/18 05:08 07/18/18 09:55 Vancomycin Level Trough 15.5 White Blood Count 11.4 H Red Blood Count 2.38 L Hemoglobin 7.1 L Hematocrit 22.6 L Mean Corpuscular Volume 95.0 Mean Corpuscular Hemoglobin 29.8 Mean Corpuscular Hemoglobin Concent 31.4 L Red Cell Distribution Width 18.5 H Platelet Count 228 Mean Platelet Volume 10.7 H Immature Granulocytes % 1.100 H Neutrophils % 85.7 H Lymphocytes % 5.9 L Monocytes % 6.9 Eosinophils % 0.2 Basophils % 0.2 Nucleated Red Blood Cells % 0.0 Immature Granulocytes # 0.120 H Neutrophils # 9.8 H Lymphocytes # 0.7 L Monocytes # 0.8 Eosinophils # 0.0 Basophils # 0.0 Nucleated Red Blood Cells # 0.0 Sodium Level 134 L Potassium Level 3.3 L Chloride Level 103 Carbon Dioxide Level 24 Anion Gap 7 Blood Urea Nitrogen 17 Creatinine 0.52 L Est Glomerular Filtrat Rate mL/min > 60 Glucose Level 108 Calcium Level 7.8 L Prothrombin Time 16.6 H Prothrombin Time Ratio 1.3 INR International Normalized Ratio 1.33 Activated Partial Thromboplast Time 36.8 H Medications Medication Current Medications Vancomycin HCl (Vanco Iv Per Pharmacy) VANCOMYCIN PER PHARMACY PER PROTOCOL XX ; Start 07/16/18 at 10:30 Meropenem/Sodium Chloride 50 ml @ 100 mls/hr Q12 IVPB Last administered on 07/18/18at 08:46; Admin Dose 100 MLS/HR; Start 07/16/18 at 11:30 Vancomycin/Sodium Chloride 250 ml @ 125 mls/hr Q12H IVPB Last administered on 07/18/18at 13:26; Admin Dose 125 MLS/HR; Start 07/16/18 at 12:00 Potassium Chloride/Sodium Chloride 1,000 ml @ 80 mls/hr [id number] IV Last administered on 07/18/18at 14:58; Admin Dose 80 MLS/HR; Start 07/16/18 at 12:00 IV Flush (NS 3 ml) 3 ml PER PROTOCOL IV ; Start 07/16/18 at 11:30 Ondansetron HCl (Zofran Inj) 4 mg Q6H PRN IV NAUSEA/VOMITING; Start 07/16/18 at 11:30 Morphine Sulfate (morphine) 2 mg Q4H PRN IV .SEVERE PAIN 7-10 Last administered on 07/17/18at 11:00; Admin Dose 2 MG; Start 07/16/18 at 11:30 Miscellaneous Information (Pending Santyl Order For Wound Care) This patient dugan... PRN PRN XX WOUND CARE; Start 07/16/18 at 13:00 Pantoprazole (Protonix Iv) 40 mg DAILY@06 IV Last administered on 07/18/18at 05:27; Admin Dose 40 MG; Start 07/18/18 at 06:00 Diltiazem HCl (Cardizem) 60 mg Q6 GTB Last administered on 07/18/18at 16:48; Admin Dose 60 MG; Start 07/18/18 at 15:30 Metoprolol Tartrate (Lopressor) 5 mg Q1H PRN IV heart rate over 120; Start 07/18/18 at 14:30 DEBBIE GALLEGOS MD July 18, 2018 17:55
[2018-07-18] MEDS ORDERED: ALTEPLASE (CATHFLO) 2 MG INJ CATHETER PRN (20:00)
[2018-07-18] MEDS: COLLAGENASE 5 GM (UD JAR) TOP SCH (20:10)
[2018-07-19] VITALS (27 sets, daily range): BP systolic 93–139; BP diastolic 51–95; PULSE 79–125; RESP 20–37
[2018-07-19] MEDS: DILTIAZEM 60 MG TAB GTB SCH ×4 (00:44→17:38)
[2018-07-19] MEDS: VANCOMYCIN 750 MG (PMX) 250 ML IVPB SCH ×2 (00:44→12:06)
[2018-07-19] MEDS: NS + KCL 20 MEQ 1,000 ML IV SCH ×2 (02:30→04:20)
[2018-07-19] MEDS: PANTOPRAZOLE 40 MG INJ IV SCH (05:18)
--- NOTE | 2018-07-19 08:54 | CONS ---
Consult Date/Type/Reason Admit Date/Time July 16, 2018 at 06:08 Initial Consult Date 07/16/18 Type of Consult Pulmonary Requesting Provider: AIDA BRANDT Date/Time of Note DATE: 07/19/18 TIME: 08:51 Subjective Patient more alert this morning. Mild tachypnea. Currently remains hemodynamically stable. Objective Vital Signs Date Temp Pulse Resp B/P (MAP) Pulse Ox O2 O2 Flow FiO2 Time Delivery Rate 07/19/18 110 36 139/71 98 Nasal 06:00 (93) Cannula 07/19/18 3.0 04:00 07/19/18 98.7 04:00 07/17/18 60 16:45 Intake and Output 07/18/18 07/18/18 07/19/18 1515:00 23:00 07:00 IntakeIntake Total 865 ml 1256 ml 1340 ml OutputOutput Total 660 ml 400 ml 283 ml BalanceBalance 205 ml 856 ml 1057 ml Exam GENERAL: Elderly appearing gentleman on nasal cannula O2 nasogastric tube in place VITAL SIGNS: per chart NECK: Supple. No JVD or lymphadenopathy. CARDIAC EXAM: S1, S2. Early systolic ejection murmur. CHEST: Diminished air entry bilaterally ABDOMEN: Soft, nontender. No guarding or rebound. EXTREMITIES: No cyanosis, clubbing or edema. NEUROLOGIC: Generalized weakness. Vent Setting Fraction of Inspired Oxygen pe: 60 Results/Medications Result Diagram: 07/19/18 0449 07/19/18 0449 Results 24 hrs Laboratory Tests Test 07/18/18 09:55 07/19/18 04:49 07/19/18 04:54 Prothrombin Time 16.6 H Prothrombin Time Ratio 1.3 INR International 1.33 Normalized Ratio Activated Partial Thromboplast 36.8 H Time White Blood Count 11.4 H Red Blood Count 3.05 #L Hemoglobin 8.8 #L Hematocrit 27.8 #L Mean Corpuscular Volume 91.1 Mean Corpuscular Hemoglobin 28.9 L Mean Corpuscular 31.7 L Hemoglobin Concent Red Cell Distribution Width 20.4 H Platelet Count 202 Mean Platelet Volume 11.2 H Immature Granulocytes % 1.000 H Neutrophils % 77.3 H Lymphocytes % 6.7 L Monocytes % 14.8 H Eosinophils % 0.0 Basophils % 0.2 Nucleated Red Blood Cells % 0.2 H Immature Granulocytes # 0.110 H Neutrophils # 8.8 H Lymphocytes # 0.8 Monocytes # 1.7 H Eosinophils # 0.0 Basophils # 0.0 Nucleated Red Blood Cells # 0.0 Sodium Level 133 L Potassium Level 3.9 Chloride Level 102 Carbon Dioxide Level 23 Anion Gap 8 Blood Urea Nitrogen 17 Creatinine 0.45 L Est Glomerular Filtrat > 60 Rate mL/min Glucose Level 134 Calcium Level 7.7 L Phosphorus Level 2.2 L Magnesium Level 2.1 Lab Scanned Report BLOOD TRANSFUSION Medications Current Medications Vancomycin HCl (Vanco Iv Per Pharmacy) VANCOMYCIN PER PHARMACY PER PROTOCOL XX ; Start 07/16/18 at 10:30 Meropenem/Sodium Chloride 50 ml @ 100 mls/hr Q12 IVPB Last administered on 07/18/18at 20:10; Admin Dose 100 MLS/HR; Start 07/16/18 at 11:30 Vancomycin/Sodium Chloride 250 ml @ 125 mls/hr Q12H IVPB Last administered on 07/19/18at 00:44; Admin Dose 125 MLS/HR; Start 07/16/18 at 12:00 Potassium Chloride/Sodium Chloride 1,000 ml @ 80 mls/hr [id number] IV Last administered on 07/19/18at 04:20; Admin Dose 80 MLS/HR; Start 07/16/18 at 12:00 IV Flush (NS 3 ml) 3 ml PER PROTOCOL IV ; Start 07/16/18 at 11:30 Ondansetron HCl (Zofran Inj) 4 mg Q6H PRN IV NAUSEA/VOMITING; Start 07/16/18 at 11:30 Morphine Sulfate (morphine) 2 mg Q4H PRN IV .SEVERE PAIN 7-10 Last administered on 07/17/18at 11:00; Admin Dose 2 MG; Start 07/16/18 at 11:30 Miscellaneous Information (Pending Santyl Order For Wound Care) This patient dugan... PRN PRN XX WOUND CARE; Start 07/16/18 at 13:00 Pantoprazole (Protonix Iv) 40 mg DAILY@06 IV Last administered on 07/19/18at 05:18; Admin Dose 40 MG; Start 07/18/18 at 06:00 Diltiazem HCl (Cardizem) 60 mg Q6 GTB Last administered on 07/19/18at 05:19; Admin Dose 60 MG; Start 07/18/18 at 15:30 Metoprolol Tartrate (Lopressor) 5 mg Q1H PRN IV heart rate over 120; Start 07/18/18 at 14:30 Collagenase (Santyl) 1 applic DAILY TOP Last administered on 07/18/18at 20:10; Admin Dose 1 APPLIC; Start 07/18/18 at 20:00 Alteplase, Recombinant (Cathflo (Activase)) 2 mg MAY REPEAT X1 PRN CATHETER IF CATHETER REMAINS OCCULUDED Last administered on 07/19/18at 01:59; Admin Dose 2 MG; Start 07/18/18 at 20:00 Assessment/Plan Hospital Course (Demo Recall) Assessment 1. Atrial fibrillation with rapid ventricular rate 2. Hemorrhagic conversion of possible septic emboli. 3. 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 Dysphagia with nasogastric tube 5. Endo carditis mitral valve disease Plan 1. Continue neurosurgery recommendations agree that patient is a poor neurosurgical candidate. No acute indication for surgical intervention at present 2. Nasogastric tube feeding 3. Cardiology recommendations for rate control consider SUDEEP or transthoracic echocardiogram to evaluate for endocarditis. 4. Continue rate control p.o. diltiazem. 5. Contact the next of kin regarding goals of care 6. DVT and GI prophylaxis Critical care time 40 minutes Family conference regarding goals of care. At least patient should be DNR. KELLY GAMEZ MD, [facility] July 19, 2018 08:54
[2018-07-19] MEDS: COLLAGENASE 5 GM (UD JAR) TOP SCH (08:56)
[2018-07-19] MEDS: MEROPENEM 1 GM/50ML(PMX) 50 ML IVPB SCH ×2 (08:56→21:04)
[2018-07-19] MEDS: ACETAMINOPHEN 650MG/20.3ML CUP NGT PRN (10:07)
--- NOTE | 2018-07-19 11:53 | CONS ---
Assessment/Plan Assessment/Plan Hospital Course (Demo Recall) Patient is lethargic minimally communicative in no distress with a T-max of 100.9. WBC 11.4 H&H 8.8 and 27.8 platelets 202 neutrophils 77.3 BUN 17 creatinine 0.45 Indwelling: NG tube, Jimenez, left upper extremity PICC line Antimicrobials: Vancomycin, meropenem Chest x-ray this morning revealed no significant interval change. Extensive bilateral lung infiltrates most severe in the right upper lobe and left lower lobe Physical examination: Fragile elderly man who is in no distress. Head atraumatic normocephalic neck is supple chest rise symmetrical breath sounds diminished bases. Heart: S1-S2. Abdomen soft bowel sounds present. Extremities without cyanosis Assessment: 1. Sepsis with ongoing fevers and leukocytosis 1. 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 Multiple intracranial hemorrhages 4. Healthcare associated pneumonia, possible ongoing aspiration 5. Acute on chronic encephalopathy 6. Cachexia 7. Atrial fibrillation status post RVR Plan: Stable, continue abx, aspiration precautions, follow pulmonary recommendations, neurosurgery on case no planned surgical intervention Consultation Date/Type/Reason Admit Date/Time July 16, 2018 at 06:08 Initial Consult Date 07/18/18 Type of Consult id Requesting Provider: AIDA BRANDT Date/Time of Note DATE: 07/19/18 TIME: 11:52 Exam/Review of Systems Exam Vitals Vital Signs Date Temp Pulse Resp B/P (MAP) Pulse Ox O2 O2 Flow FiO2 Time Delivery Rate 07/19/18 97.7 11:26 07/19/18 95 26 113/61 98 11:00 (78) 07/19/18 Nasal 09:00 Cannula 07/19/18 3.0 04:00 07/17/18 60 16:45 Intake and Output 07/18/18 07/18/18 07/19/18 1515:00 23:00 07:00 IntakeIntake Total 865 ml 1256 ml 1340 ml OutputOutput Total 660 ml 400 ml 283 ml BalanceBalance 205 ml 856 ml 1057 ml Results Result Diagram: 07/19/18 0449 07/19/18 0449 Results 24hrs Laboratory Tests Test 07/19/18 04:49 07/19/18 04:54 White Blood Count 11.4 H Red Blood Count 3.05 #L Hemoglobin 8.8 #L Hematocrit 27.8 #L Mean Corpuscular Volume 91.1 Mean Corpuscular Hemoglobin 28.9 L Mean Corpuscular Hemoglobin Concent 31.7 L Red Cell Distribution Width 20.4 H Platelet Count 202 Mean Platelet Volume 11.2 H Immature Granulocytes % 1.000 H Neutrophils % 77.3 H Lymphocytes % 6.7 L Monocytes % 14.8 H Eosinophils % 0.0 Basophils % 0.2 Nucleated Red Blood Cells % 0.2 H Immature Granulocytes # 0.110 H Neutrophils # 8.8 H Lymphocytes # 0.8 Monocytes # 1.7 H Eosinophils # 0.0 Basophils # 0.0 Nucleated Red Blood Cells # 0.0 Sodium Level 133 L Potassium Level 3.9 Chloride Level 102 Carbon Dioxide Level 23 Anion Gap 8 Blood Urea Nitrogen 17 Creatinine 0.45 L Est Glomerular Filtrat Rate mL/min > 60 Glucose Level 134 Calcium Level 7.7 L Phosphorus Level 2.2 L Magnesium Level 2.1 Lab Scanned Report BLOOD TRANSFUSION Medications Medication Current Medications Vancomycin HCl (Vanco Iv Per Pharmacy) VANCOMYCIN PER PHARMACY PER PROTOCOL XX ; Start 07/16/18 at 10:30 Meropenem/Sodium Chloride 50 ml @ 100 mls/hr Q12 IVPB Last administered on 07/19/18at 08:56; Admin Dose 100 MLS/HR; Start 07/16/18 at 11:30 Vancomycin/Sodium Chloride 250 ml @ 125 mls/hr Q12H IVPB Last administered on 07/19/18at 00:44; Admin Dose 125 MLS/HR; Start 07/16/18 at 12:00 Potassium Chloride/Sodium Chloride 1,000 ml @ 80 mls/hr [id number] IV Last administered on 07/19/18at 04:20; Admin Dose 80 MLS/HR; Start 07/16/18 at 12:00 IV Flush (NS 3 ml) 3 ml PER PROTOCOL IV ; Start 07/16/18 at 11:30 Ondansetron HCl (Zofran Inj) 4 mg Q6H PRN IV NAUSEA/VOMITING; Start 07/16/18 at 11:30 Morphine Sulfate (morphine) 2 mg Q4H PRN IV .SEVERE PAIN 7-10 Last administered on 07/17/18at 11:00; Admin Dose 2 MG; Start 07/16/18 at 11:30 [facility] This patient dugan... PRN PRN XX WOUND CARE; Start 07/16/18 at 13:00 Pantoprazole (Protonix Iv) 40 mg DAILY@06 IV Last administered on 07/19/18at 05:18; Admin Dose 40 MG; Start 07/18/18 at 06:00 Diltiazem HCl (Cardizem) 60 mg Q6 GTB Last administered on 07/19/18at 05:19; Admin Dose 60 MG; Start 07/18/18 at 15:30 Metoprolol Tartrate (Lopressor) 5 mg Q1H PRN IV heart rate over 120; Start 07/18/18 at 14:30 Collagenase (Santyl) 1 applic DAILY TOP Last administered on 07/19/18at 08:56; Admin Dose 1 APPLIC; Start 07/18/18 at 20:00 Acetaminophen (Tylenol Liquid) 650 mg Q4H PRN NGT MILD PAIN(1-3)OR ELEVATED TEMP Last administered on 07/19/18at 10:07; Admin Dose 650 MG; Start 07/19/18 at 09:30 SANDER WILL NP July 19, 2018 11:53
--- NOTE | 2018-07-19 12:30 | CONS ---
Assessment/Plan Assessment/Plan Hospital Course 72 yo M with multiple comorbidities and recent hx of infective endocarditis who presented to the ICU from [facility] for abnormal HCT results. CTH was notable for scattered intraparenchymal hemorrhages BL... for which neurology is consulted. The clinical picture is most concerning for hemorrhagic septic emboli. Echo on 07/07 is notable for MV vegetation. P: MRI brain, CTA H/N for further characterization Hold antiplatelets/anticoagulation in the short term Maintain SBP<160 [place] as able Limit sedating medications where possible Endocarditis and other medical management per primary Will follow clinically, to recommend neurologic studies, as necessary Consultation Date/Type/Reason Admit Date/Time July 16, 2018 at 06:08 Type of Consult Neurology Reason for Consultation embolic strokes Requesting Provider: KELLY GAMEZ MD, [facility] Date/Time of Note DATE: 07/19/18 TIME: 12:30 Hx of Present Illness The pt is currently unable to contribute a hx. 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 Patient was recently hospitalized for sepsis and bacteremia, echo showed mitral valve vegetation. Cultures did not clear with Zyvox antibiotics were changed to vancomycin on 07/07. Blood cultures did clear and patient was discharged to [facility]. Patient was being followed by neurology and CT brain was ordered which showed new intraparenchymal hemorrhages with midline shift. Patient was transferred to the ICU for further management. Patient is currently nonverbal history is obtained from previous documentation. unable to obtain d/t ams Exam/Review of Systems Exam Vitals Vital Signs Date Temp Pulse Resp B/P (MAP) Pulse Ox O2 O2 Flow FiO2 Time Delivery Rate 07/19/18 103 12:00 07/19/18 97.7 11:26 07/19/18 26 113/61 98 11:00 (78) 07/19/18 Nasal 09:00 Cannula 07/19/18 3.0 08:00 07/17/18 60 16:45 Intake and Output 07/18/18 07/18/18 07/19/18 1414:59 22:59 06:59 IntakeIntake Total 1070 ml 1166 ml 1460 ml OutputOutput Total 710 ml 460 ml 323 ml BalanceBalance 360 ml 706 ml 1137 ml Exam PE: Gen Appearance: No Apparent Distress HEENT: Normocephalic Cardiovascular: Regular rate Abdomen: Soft Extremities: Dry NE: The patient was awake, alert, and sparsely verbal. Disoriented. Unable to follow commands. Cranial nerve examination was limited by mental status. Pupils were equal and reactive to light. There was no afferent pupillary defect. Funduscopic examin ation was limited. Face was grossly symmetric, w/ present corneal and cough reflexes. Tone was normal. Muscle bulk was normal. I did not see fasciculations. The patient withdrew to noxious stimulation x 4. Coordination and gait testing was limited by mental status. Arm and leg reflexes were within normal limits and symmetric. Martinez's sign was absent. Plantar responses were flexor. Results Result Diagram: 07/19/18 0449 07/19/18 0449 Results 24hrs Laboratory Tests Test 07/19/18 04:49 07/19/18 04:54 White Blood Count 11.4 H Red Blood Count 3.05 #L Hemoglobin 8.8 #L Hematocrit 27.8 #L Mean Corpuscular Volume 91.1 Mean Corpuscular Hemoglobin 28.9 L Mean Corpuscular Hemoglobin Concent 31.7 L Red Cell Distribution Width 20.4 H Platelet Count 202 Mean Platelet Volume 11.2 H Immature Granulocytes % 1.000 H Neutrophils % 77.3 H Lymphocytes % 6.7 L Monocytes % 14.8 H Eosinophils % 0.0 Basophils % 0.2 Nucleated Red Blood Cells % 0.2 H Immature Granulocytes # 0.110 H Neutrophils # 8.8 H Lymphocytes # 0.8 Monocytes # 1.7 H Eosinophils # 0.0 Basophils # 0.0 Nucleated Red Blood Cells # 0.0 Sodium Level 133 L Potassium Level 3.9 Chloride Level 102 Carbon Dioxide Level 23 Anion Gap 8 Blood Urea Nitrogen 17 Creatinine 0.45 L Est Glomerular Filtrat Rate mL/min > 60 Glucose Level 134 Calcium Level 7.7 L Phosphorus Level 2.2 L Magnesium Level 2.1 Lab Scanned Report BLOOD TRANSFUSION Medications Medication Current Medications Vancomycin HCl (Vanco Iv Per Pharmacy) VANCOMYCIN PER PHARMACY PER PROTOCOL XX ; Start 07/16/18 at 10:30 Meropenem/Sodium Chloride 50 ml @ 100 mls/hr Q12 IVPB Last administered on 06/23 10/10at 08:56; Admin Dose 100 MLS/HR; Start 07/16/18 at 11:30 Vancomycin/Sodium Chloride 250 ml @ 125 mls/hr Q12H IVPB Last administered on 07/19/18at 12:06; Admin Dose 125 MLS/HR; Start 07/16/18 at 12:00 IV Flush (NS 3 ml) 3 ml PER PROTOCOL IV ; Start 07/16/18 at 11:30 Ondansetron HCl (Zofran Inj) 4 mg Q6H PRN IV NAUSEA/VOMITING; Start 07/16/18 at 11:30 Morphine Sulfate (morphine) 2 mg Q4H PRN IV .SEVERE PAIN 7-10 Last administered on 07/17/18at 11:00; Admin Dose 2 MG; Start 07/16/18 at 11:30 Miscellaneous Information (Pending Santyl Order For Wound Care) This patient dugan... PRN PRN XX WOUND CARE; Start 07/16/18 at 13:00 Pantoprazole (Protonix Iv) 40 mg DAILY@06 IV Last administered on 07/19/18at 05:18; Admin Dose 40 MG; Start 07/18/18 at 06:00 Diltiazem HCl (Cardizem) 60 mg Q6 GTB Last administered on 07/19/18at 12:03; Admin Dose 60 MG; Start 07/18/18 at 15:30 Metoprolol Tartrate (Lopressor) 5 mg Q1H PRN IV heart rate over 120; Start 07/18/18 at 14:30 Collagenase (Santyl) 1 applic DAILY TOP Last administered on 07/19/18at 08:56; Admin Dose 1 APPLIC; Start 07/18/18 at 20:00 Acetaminophen (Tylenol Liquid) 650 mg Q4H PRN NGT MILD PAIN(1-3)OR ELEVATED TEMP Last administered on 07/19/18at 10:07; Admin Dose 650 MG; Start 07/19/18 at 09:30 Amiodarone HCl (Cordarone) 200 mg BID NGT ; Start 07/19/18 at 12:30 Past Medical History reviewed Medical History: other (Unknown) Home Meds Active Scripts Lactobacillus Rhamnosus GG (Culturelle) 1 Each Capsule, 1 CAP PO BID for 30 Days, CAP Prov:PERLA NARANJO MD 03/19/18 Acetaminophen* (Tylenol*) 325 Mg Tablet, 650 MG PO Q6H PRN for PAIN LEVEL 1-3 OR FEVER for 30 Days, TAB Prov:PERLA NARANJO MD 03/19/18 Diltiazem Hcl* (Cardizem*) 30 Mg Tablet, 30 MG PO TID for 30 Days, TAB Prov:PERLA NARANJO MD 03/19/18 Reported Medications Zinc Sulfate* (Zinc Sulfate*) 220 Mg Tablet, 220 MG PO DAILY, TAB 06/30/18 Ascorbic Acid (Vitamin C) 500 Mg Tab, 500 MG PO DAILY, TAB 06/30/18 Mirtazapine* (Remeron*) 15 Mg Tablet, 15 MG PO HS, TAB 06/30/18 Pantoprazole* (Protonix*) 40 Mg Tablet.dr, 40 MG PO DAILY, TAB 06/30/18 Multivitamins* (Theragran*) 1 Tab Tab, 1 TAB PO DAILY, TAB 06/30/18 Megestrol Acetate* (Megestrol Acetate*) 400 Mg/10 Ml Susp, 400 MG PO BID, ML 06/30/18 Digoxin* (Digitek*) 250 Mcg Tablet, 0.25 MG PO DAILY, TAB 06/30/18 Benztropine Mesylate* (Benztropine Mesylate*) 1 Mg Tablet, 1 MG PO DAILY, TAB 03/13/18 Medications Current Medications Vancomycin HCl (Vanco Iv Per Pharmacy) VANCOMYCIN PER PHARMACY PER PROTOCOL XX ; Start 07/16/18 at 10:30 Meropenem/Sodium Chloride 50 ml @ 100 mls/hr Q12 IVPB Last administered on 07/19/18at 08:56; Admin Dose 100 MLS/HR; Start 07/16/18 at 11:30 Vancomycin/Sodium Chloride 250 ml @ 125 mls/hr Q12H IVPB Last administered on 07/19/18at 12:06; Admin Dose 125 MLS/HR; Start 07/16/18 at 12:00 IV Flush (NS 3 ml) 3 ml PER PROTOCOL IV ; Start 07/16/18 at 11:30 Ondansetron HCl (Zofran Inj) 4 mg Q6H PRN IV NAUSEA/VOMITING; Start 07/16/18 at 11:30 Morphine Sulfate (morphine) 2 mg Q4H PRN IV .SEVERE PAIN 7-10 Last administered on 07/17/18at 11:00; Admin Dose 2 MG; Start 07/16/18 at 11:30 Miscellaneous Information (Pending Santyl Order For Wound Care) This patient dugan... PRN PRN XX WOUND CARE; Start 07/16/18 at 13:00 Pantoprazole (Protonix Iv) 40 mg DAILY@06 IV Last administered on 07/19/18at 05:18; Admin Dose 40 MG; Start 07/18/18 at 06:00 Diltiazem HCl (Cardizem) 60 mg Q6 GTB Last administered on 07/19/18at 12:03; Admin Dose 60 MG; Start 07/18/18 at 15:30 Metoprolol Tartrate (Lopressor) 5 mg Q1H PRN IV heart rate over 120; Start 07/18/18 at 14:30 Collagenase (Santyl) 1 applic DAILY TOP Last administered on 07/19/18at 08:56; Admin Dose 1 APPLIC; Start 07/18/18 at 20:00 Acetaminophen (Tylenol Liquid) 650 mg Q4H PRN NGT MILD PAIN(1-3)OR ELEVATED TEMP Last administered on 07/19/18at 10:07; Admin Dose 650 MG; Start 07/19/18 at 09:30 Amiodarone HCl (Cordarone) 200 mg BID NGT ; Start 07/19/18 at 12:30 Allergies: Coded Allergies: Penicillins (Verified Allergy, Unknown, 06/30/18) Past Surgical History reviewed Past Surgical Hx: other Social History reviewed Alcohol Use: none Smoking Status: Unknown if ever smoked Drug Use: none, other (Unknown) ANDREA NOEL NP July 19, 2018 12:30 JAMES BROWN July 20, 2018 05:27
[2018-07-19] MEDS: AMIODARONE 200 MG TAB NGT SCH ×2 (13:01→21:04)
--- NOTE | 2018-07-19 15:45 | CONS ---
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 Encephalopathy CVA, hemorrhagic Nonsustained ventricular tachycardia -Patient with overall controlled heart rates both episodes of nonsustained treatment tachycardia. Currently on Cardizem, would continue with addition of amiodarone -Maintain k>4.0 and Mg>2.0 -Antibiotics as per infectious disease Consultation Date/Type/Reason Admit Date/Time July 16, 2018 at 06:08 Initial Consult Date 07/18/18 Type of Consult Cardiology Requesting Provider: AIDA BRANDT Date/Time of Note DATE: 07/19/18 TIME: 15:43 24 HR Interval Summary Free Text/Dictation Patient seen and examined, moaning not answering questions Exam/Review of Systems Vital Signs Vitals Vital Signs Date Temp Pulse Resp B/P (MAP) Pulse Ox O2 O2 Flow FiO2 Time Delivery Rate 07/19/18 80 26 93/51 (65) 98 13:00 07/19/18 97.7 Nasal 12:00 Cannula 07/19/18 3.0 08:00 07/17/18 60 16:45 Intake and Output 07/18/18 07/18/18 07/19/18 1515:00 23:00 07:00 IntakeIntake Total 865 ml 1256 ml 1460 ml OutputOutput Total 660 ml 400 ml 313 ml BalanceBalance 205 ml 856 ml 1147 ml Exam Exam Sleeping but arousable, moaning, not answering questions Head: normocephalic Respiratory: other (Coarse breath sounds bilaterally, no wheezing) Cardiovascular: irregular rhythm (S1-S2 heard) Gastrointestinal: soft, non-tender, bowel sounds Extremities: edema (Trace) Labs Result Diagram: 07/19/18 0449 07/19/18 0449 Results 24hrs Laboratory Tests Test 07/19/18 04:49 07/19/18 04:54 White Blood Count 11.4 H Red Blood Count 3.05 #L Hemoglobin 8.8 #L Hematocrit 27.8 #L Mean Corpuscular Volume 91.1 Mean Corpuscular Hemoglobin 28.9 L Mean Corpuscular Hemoglobin Concent 31.7 L Red Cell Distribution Width 20.4 H Platelet Count 202 Mean Platelet Volume 11.2 H Immature Granulocytes % 1.000 H Neutrophils % 77.3 H Lymphocytes % 6.7 L Monocytes % 14.8 H Eosinophils % 0.0 Basophils % 0.2 Nucleated Red Blood Cells % 0.2 H Immature Granulocytes # 0.110 H Neutrophils # 8.8 H Lymphocytes # 0.8 Monocytes # 1.7 H Eosinophils # 0.0 Basophils # 0.0 Nucleated Red Blood Cells # 0.0 Sodium Level 133 L Potassium Level 3.9 Chloride Level 102 Carbon Dioxide Level 23 Anion Gap 8 Blood Urea Nitrogen 17 Creatinine 0.45 L Est Glomerular Filtrat Rate mL/min > 60 Glucose Level 134 Calcium Level 7.7 L Phosphorus Level 2.2 L Magnesium Level 2.1 Lab Scanned Report BLOOD TRANSFUSION Medications Medications Current Medications Vancomycin HCl (Vanco Iv Per Pharmacy) VANCOMYCIN PER PHARMACY PER PROTOCOL XX ; Start 07/16/18 at 10:30 Meropenem/Sodium Chloride 50 ml @ 100 mls/hr Q12 IVPB Last administered on 07/19/18at 08:56; Admin Dose 100 MLS/HR; Start 07/16/18 at 11:30 Vancomycin/Sodium Chloride 250 ml @ 125 mls/hr Q12H IVPB Last administered on 07/19/18at 12:06; Admin Dose 125 MLS/HR; Start 07/16/18 at 12:00 IV Flush (NS 3 ml) 3 ml PER PROTOCOL IV ; Start 07/16/18 at 11:30 Ondansetron HCl (Zofran Inj) 4 mg Q6H PRN IV NAUSEA/VOMITING; Start 07/16/18 at 11:30 Morphine Sulfate (morphine) 2 mg Q4H PRN IV .SEVERE PAIN 7-10 Last administered on 07/17/18at 11:00; Admin Dose 2 MG; Start 07/16/18 at 11:30 Miscellaneous Information (Pending Santyl Order For Wound Care) This patient dugan... PRN PRN XX WOUND CARE; Start 07/16/18 at 13:00 Pantoprazole (Protonix Iv) 40 mg DAILY@06 IV Last administered on 07/19/18at 05:18; Admin Dose 40 MG; Start 07/18/18 at 06:00 Diltiazem HCl (Cardizem) 60 mg Q6 GTB Last administered on 07/19/18at 12:03; Admin Dose 60 MG; Start 07/18/18 at 15:30 Metoprolol Tartrate (Lopressor) 5 mg Q1H PRN IV heart rate over 120; Start 07/18/18 at 14:30 Collagenase (Santyl) 1 applic DAILY TOP Last administered on 07/19/18at 08:56; Admin Dose 1 APPLIC; Start 07/18/18 at 20:00 Acetaminophen (Tylenol Liquid) 650 mg Q4H PRN NGT MILD PAIN(1-3)OR ELEVATED TEMP Last administered on 07/19/18at 10:07; Admin Dose 650 MG; Start 07/19/18 at 09:30 Amiodarone HCl (Cordarone) 200 mg BID NGT Last administered on 07/19/18at 13:01; Admin Dose 200 MG; Start 07/19/18 at 12:30 Charan Cottrell DO July 19, 2018 15:45
--- NOTE | 2018-07-19 17:30 | CONS ---
Assessment/Plan Assessment/Plan Assessment/Plan (Daily) multi-focal ICH- likely hemorrhagic septic emboli. Neurologically stable, No indication for evacuation of hemorrhages. Underlying etiology to be treated to prevent recurrence. F/u CT prn if neurologically deteriorates but had a stable CT with 2 day interval. Please call if questions or concerns. Consultation Date/Type/Reason Admit Date/Time July 16, 2018 at 06:08 Initial Consult Date 07/18/18 Requesting Provider: KELLY GAMEZ MD, [facility] Date/Time of Note DATE: 07/19/18 TIME: 17:26 24 HR Interval Summary Subjective hx not possible: pt non-verbal (will answer only simple question intermittently and not reliably) Exam/Review of Systems Exam Vitals Vital Signs Date Temp Pulse Resp B/P (MAP) Pulse Ox O2 O2 Flow FiO2 Time Delivery Rate 07/19/18 Nasal 3.0 15:40 Cannula 07/19/18 97.5 99 21 114/58 91 15:35 (76) 07/17/18 60 16:45 Intake and Output 07/18/18 07/18/18 07/19/18 1515:00 23:00 07:00 IntakeIntake Total 865 ml 1256 ml 1460 ml OutputOutput Total 660 ml 400 ml 313 ml BalanceBalance 205 ml 856 ml 1147 ml Neurological: other (opens eyes, will occasionally follow simple commands. Minimally verbal. ) Results Result Diagram: 07/19/18 0449 07/19/18 0449 Results 24hrs Laboratory Tests Test 07/19/18 04:49 07/19/18 04:54 White Blood Count 11.4 H Red Blood Count 3.05 #L Hemoglobin 8.8 #L Hematocrit 27.8 #L Mean Corpuscular Volume 91.1 Mean Corpuscular Hemoglobin 28.9 L Mean Corpuscular Hemoglobin Concent 31.7 L Red Cell Distribution Width 20.4 H Platelet Count 202 Mean Platelet Volume 11.2 H Immature Granulocytes % 1.000 H Neutrophils % 77.3 H Lymphocytes % 6.7 L Monocytes % 14.8 H Eosinophils % 0.0 Basophils % 0.2 Nucleated Red Blood Cells % 0.2 H Immature Granulocytes # 0.110 H Neutrophils # 8.8 H Lymphocytes # 0.8 Monocytes # 1.7 H Eosinophils # 0.0 Basophils # 0.0 Nucleated Red Blood Cells # 0.0 Sodium Level 133 L Potassium Level 3.9 Chloride Level 102 Carbon Dioxide Level 23 Anion Gap 8 Blood Urea Nitrogen 17 Creatinine 0.45 L Est Glomerular Filtrat Rate mL/min > 60 Glucose Level 134 Calcium Level 7.7 L Phosphorus Level 2.2 L Magnesium Level 2.1 Lab Scanned Report BLOOD TRANSFUSION Medications Medication Current Medications Vancomycin HCl (Vanco Iv Per Pharmacy) VANCOMYCIN PER PHARMACY PER PROTOCOL XX ; Start 07/16/18 at 10:30 Meropenem/Sodium Chloride 50 ml @ 100 mls/hr Q12 IVPB Last administered on 07/19/18 08:56; Admin Dose 100 MLS/HR; Start 07/16/18 at 11:30 Vancomycin/Sodium Chloride 250 ml @ 125 mls/hr Q12H IVPB Last administered on 07/19/18 12:06; Admin Dose 125 MLS/HR; Start 07/16/18 at 12:00 IV Flush (NS 3 ml) 3 ml PER PROTOCOL IV ; Start 07/16/18 at 11:30 Ondansetron HCl (Zofran Inj) 4 mg Q6H PRN IV NAUSEA/VOMITING; Start 07/16/18 at 11:30 Morphine Sulfate (morphine) 2 mg Q4H PRN IV .SEVERE PAIN 7-10 Last administered on 07/17/18at 11:00; Admin Dose 2 MG; Start 07/16/18 at 11:30 Miscellaneous Information (Pending Santyl Order For Wound Care) This patient dugan... PRN PRN XX WOUND CARE; Start 07/16/18 at 13:00 Pantoprazole (Protonix Iv) 40 mg DAILY@06 IV Last administered on 07/19/18 05:18; Admin Dose 40 MG; Start 07/18/18 at 06:00 Diltiazem HCl (Cardizem) 60 mg Q6 GTB Last administered on 07/19/18 12:03; Admin Dose 60 MG; Start 07/18/18 at 15:30 Metoprolol Tartrate (Lopressor) 5 mg Q1H PRN IV heart rate over 120; Start 07/18/18 at 14:30 Collagenase (Santyl) 1 applic DAILY TOP Last administered on 07/19/18 08:56; Admin Dose 1 APPLIC; Start 07/18/18 at 20:00 Acetaminophen (Tylenol Liquid) 650 mg Q4H PRN NGT MILD PAIN(1-3)OR ELEVATED TEMP Last administered on 07/19/18at 10:07; Admin Dose 650 MG; Start 07/19/18 at 09:30 Amiodarone HCl (Cordarone) 200 mg BID NGT Last administered on 07/19/18at 13:01; Admin Dose 200 MG; Start 07/19/18 at 12:30 Sodium Hypochlorite (Dakins Diluted ()) 1 applic DAILY TP ; Start 07/20/18 at 09:00 JAKE ABURTO MD July 19, 2018 17:30
--- NOTE | 2018-07-19 17:35 | PN ---
Date/Time of Note Date/Time of Note DATE: 07/19/18 TIME: 17:33 Assessment/Plan VTE Prophylaxis Risk [place]from [facility] [place]0 risk: 9 SCD applied (from [facility] [place] Yes Pharmacological prophylaxis: heparin Lines/Catheters IV Catheter Type (from [facility]): PICC Line Central line still needed: Yes Urinary Cath still in place: Yes Reason Cath still needed: urinary retention Assessment/Plan Hospital Course Awake Can't follow commands Appears comfortably RRR CTAB A/P: 72 yo male wtih vascular dementia who has developed MV endocarditis now complicated by multifocal cerebral infarcts - Neurologic status not much different than prior to infarcts - Continue vancomycin for 6 weeks for endocarditis - ? Merrem? - Unfortunately we have no collateral contacts for this patient Can transfer back to long term Result Diagram: 07/19/18 0449 07/19/18 0449 Results 24hrs Laboratory Tests Test 07/19/18 04:49 07/19/18 04:54 White Blood Count 11.4 H Red Blood Count 3.05 #L Hemoglobin 8.8 #L Hematocrit 27.8 #L Mean Corpuscular Volume 91.1 Mean Corpuscular Hemoglobin 28.9 L Mean Corpuscular Hemoglobin Concent 31.7 L Red Cell Distribution Width 20.4 H Platelet Count 202 Mean Platelet Volume 11.2 H Immature Granulocytes % 1.000 H Neutrophils % 77.3 H Lymphocytes % 6.7 L Monocytes % 14.8 H Eosinophils % 0.0 Basophils % 0.2 Nucleated Red Blood Cells % 0.2 H Immature Granulocytes # 0.110 H Neutrophils # 8.8 H Lymphocytes # 0.8 Monocytes # 1.7 H Eosinophils # 0.0 Basophils # 0.0 Nucleated Red Blood Cells # 0.0 Sodium Level 133 L Potassium Level 3.9 Chloride Level 102 Carbon Dioxide Level 23 Anion Gap 8 Blood Urea Nitrogen 17 Creatinine 0.45 L Est Glomerular Filtrat Rate mL/min > 60 Glucose Level 134 Calcium Level 7.7 L Phosphorus Level 2.2 L Magnesium Level 2.1 Lab Scanned Report BLOOD TRANSFUSION Subjective 24 Hr Interval Summary Free Text/Dictation Nonverbal No distress Exam/Review of Systems Exam Vitals Vital Signs Date Temp Pulse Resp B/P (MAP) Pulse Ox O2 O2 Flow FiO2 Time Delivery Rate 07/19/18 Nasal 3.0 15:40 Cannula 07/19/18 97.5 99 21 114/58 91 15:35 (76) 07/17/18 60 16:45 Intake and Output 07/18/18 07/18/18 07/19/18 1515:00 23:00 07:00 IntakeIntake Total 865 ml 1256 ml 1460 ml OutputOutput Total 660 ml 400 ml 313 ml BalanceBalance 205 ml 856 ml 1147 ml Results Results 24hrs Laboratory Tests Test 07/19/18 04:49 07/19/18 04:54 White Blood Count 11.4 H Red Blood Count 3.05 #L Hemoglobin 8.8 #L Hematocrit 27.8 #L Mean Corpuscular Volume 91.1 Mean Corpuscular Hemoglobin 28.9 L Mean Corpuscular Hemoglobin Concent 31.7 L Red Cell Distribution Width 20.4 H Platelet Count 202 Mean Platelet Volume 11.2 H Immature Granulocytes % 1.000 H Neutrophils % 77.3 H Lymphocytes % 6.7 L Monocytes % 14.8 H Eosinophils % 0.0 Basophils % 0.2 Nucleated Red Blood Cells % 0.2 H Immature Granulocytes # 0.110 H Neutrophils # 8.8 H Lymphocytes # 0.8 Monocytes # 1.7 H Eosinophils # 0.0 Basophils # 0.0 Nucleated Red Blood Cells # 0.0 Sodium Level 133 L Potassium Level 3.9 Chloride Level 102 Carbon Dioxide Level 23 Anion Gap 8 Blood Urea Nitrogen 17 Creatinine 0.45 L Est Glomerular Filtrat Rate mL/min > 60 Glucose Level 134 Calcium Level 7.7 L Phosphorus Level 2.2 L Magnesium Level 2.1 Lab Scanned Report BLOOD TRANSFUSION Medications Medication Current Medications Vancomycin HCl (Vanco Iv Per Pharmacy) VANCOMYCIN PER PHARMACY PER PROTOCOL XX ; Start 07/16/18 at 10:30 Meropenem/Sodium Chloride 50 ml @ 100 mls/hr Q12 IVPB Last administered on 07/19/18at 08:56; Admin Dose 100 MLS/HR; Start 07/16/18 at 11:30 Vancomycin/Sodium Chloride 250 ml @ 125 mls/hr Q12H IVPB Last administered on 07/19/18at 12:06; Admin Dose 125 MLS/HR; Start 07/16/18 at 12:00 IV Flush (NS 3 ml) 3 ml PER PROTOCOL IV ; Start 07/16/18 at 11:30 Ondansetron HCl (Zofran Inj) 4 mg Q6H PRN IV NAUSEA/VOMITING; Start 07/16/18 at 11:30 Morphine Sulfate (morphine) 2 mg Q4H PRN IV .SEVERE PAIN 7-10 Last administered on 07/17/18at 11:00; Admin Dose 2 MG; Start 07/16/18 at 11:30 Miscellaneous Information (Pending Santyl Order For Wound Care) This patient dugan... PRN PRN XX WOUND CARE; Start 07/16/18 at 13:00 Pantoprazole (Protonix Iv) 40 mg DAILY@06 IV Last administered on 07/19/18at 05:18; Admin Dose 40 MG; Start 07/18/18 at 06:00 Diltiazem HCl (Cardizem) 60 mg Q6 GTB Last administered on 07/19/18at 12:03; Admin Dose 60 MG; Start 07/18/18 at 15:30 Metoprolol Tartrate (Lopressor) 5 mg Q1H PRN IV heart rate over 120; Start 07/18/18 at 14:30 Collagenase (Santyl) 1 applic DAILY TOP Last administered on 07/19/18at 08:56; Admin Dose 1 APPLIC; Start 07/18/18 at 20:00 Acetaminophen (Tylenol Liquid) 650 mg Q4H PRN NGT MILD PAIN(1-3)OR ELEVATED TEMP Last administered on 07/19/18at 10:07; Admin Dose 650 MG; Start 07/19/18 at 09:30 Amiodarone HCl (Cordarone) 200 mg BID NGT Last administered on 07/19/18at 13:01; Admin Dose 200 MG; Start 07/19/18 at 12:30 Sodium Hypochlorite (Dakins Diluted ()) 1 applic DAILY TP ; Start 07/20/18 at 09:00 DEBBIE GALLEGOS MD July 19, 2018 17:35
[2018-07-19] MEDS: IPRATROPIUM (NEB) 0.5 MG/2.5 ML AMP HHN SCH (22:46)
[2018-07-19] MEDS: LEVALBUTEROL (NEB) 1.25 MG/0.5 ML AMP HHN SCH (22:46)
[2018-07-20] VITALS (18 sets, daily range): BP systolic 99–121; BP diastolic 56–84; PULSE 8–138; RESP 17–22
[2018-07-20] MEDS: VANCOMYCIN 750 MG (PMX) 250 ML IVPB SCH ×2 (00:17→11:37)
[2018-07-20] MEDS: DILTIAZEM 60 MG TAB GTB SCH ×4 (00:17→17:25)
[2018-07-20] MEDS: ACETAMINOPHEN 650MG/20.3ML CUP NGT PRN (00:27)
[2018-07-20] MEDS: LEVALBUTEROL (NEB) 1.25 MG/0.5 ML AMP HHN SCH ×6 (01:50→20:18)
[2018-07-20] MEDS: IPRATROPIUM (NEB) 0.5 MG/2.5 ML AMP HHN SCH ×6 (01:50→20:18)
[2018-07-20] MEDS: PANTOPRAZOLE 40 MG INJ IV SCH (06:03)
[2018-07-20] MEDS ORDERED: IOHEXOL 100 ML ONE (08:01)
[2018-07-20] MEDS ORDERED: SOD CHLORIDE 0.9% 100 ML ONE (08:01)
[2018-07-20] MEDS ORDERED: BALSAM PERU/CASTOR OIL 60 GM TUBE TOP SCH (09:00)
[2018-07-20] MEDS: DAKINS 0.0125%(1/40) 473 ML SOLUTION TP SCH ×2 (09:00→13:53)
[2018-07-20] MEDS: MEROPENEM 1 GM/50ML(PMX) 50 ML IVPB SCH ×2 (09:34→21:37)
[2018-07-20] MEDS: BALSAM PERU/CASTOR OIL 60 GM TUBE TOP SCH (09:38)
[2018-07-20] MEDS: COLLAGENASE 5 GM (UD JAR) TOP SCH (09:38)
[2018-07-20] MEDS: AMIODARONE 200 MG TAB NGT SCH ×2 (09:40→21:37)
--- NOTE | 2018-07-20 12:32 | CONS ---
Consult Date/Type/Reason Admit Date/Time July 16, 2018 at 06:08 Initial Consult Date 07/16/18 Type of Consult Pulmonary Requesting Provider: KELLY GAMEZ MD, [facility] Date/Time of Note DATE: 07/20/18 TIME: 12:30 Subjective No changes, appears comfortable. Objective Vital Signs Date Temp Pulse Resp B/P (MAP) Pulse Ox O2 O2 Flow FiO2 Time Delivery Rate 07/20/18 98.0 77 22 112/62 96 Room Air 11:25 (79) 07/20/18 4.0 08:53 07/17/18 60 16:45 Intake and Output 07/19/18 07/19/18 07/20/18 1515:00 23:00 07:00 IntakeIntake Total 1050 ml 105 ml 750 ml OutputOutput Total 195 ml 100 ml 650 ml BalanceBalance 855 ml 5 ml 100 ml Exam GENERAL: Elderly appearing gentleman on nasal cannula O2 nasogastric tube in place VITAL SIGNS: per chart NECK: Supple. No JVD or lymphadenopathy. CARDIAC EXAM: S1, S2. Early systolic ejection murmur. CHEST: Diminished air entry bilaterally ABDOMEN: Soft, nontender. No guarding or rebound. EXTREMITIES: No cyanosis, clubbing or edema. NEUROLOGIC: Generalized weakness. Vent Setting Fraction of Inspired Oxygen pe: 60 Results/Medications Result Diagram: 07/20/18 0554 07/20/18 0554 Results 24 hrs Laboratory Tests Test 07/20/18 05:54 White Blood Count 8.0 # Red Blood Count 2.73 L Hemoglobin 8.0 L Hematocrit 24.9 L Mean Corpuscular Volume 91.2 Mean Corpuscular Hemoglobin 29.3 Mean Corpuscular Hemoglobin Concent 32.1 Red Cell Distribution Width 20.2 H Platelet Count 255 # Mean Platelet Volume 10.1 Immature Granulocytes % 1.000 H Neutrophils % 81.5 H Lymphocytes % 10.7 L Monocytes % 6.1 Eosinophils % 0.6 Basophils % 0.1 Nucleated Red Blood Cells % 0.0 Immature Granulocytes # 0.080 H Neutrophils # 6.5 Lymphocytes # 0.9 Monocytes # 0.5 Eosinophils # 0.1 Basophils # 0.0 Nucleated Red Blood Cells # 0.0 Erythrocyte Sedimentation Rate 45 H Sodium Level 134 L Potassium Level 3.3 L Chloride Level 105 Carbon Dioxide Level 23 Anion Gap 6 Blood Urea Nitrogen 17 Creatinine 0.44 L Est Glomerular Filtrat Rate mL/min > 60 Glucose Level 105 Calcium Level 7.6 L Phosphorus Level 2.6 Magnesium Level 2.1 Medications Current Medications Vancomycin HCl (Vanco Iv Per Pharmacy) VANCOMYCIN PER PHARMACY PER PROTOCOL XX ; Start 07/16/18 at 10:30 Meropenem/Sodium Chloride 50 ml @ 100 mls/hr Q12 IVPB Last administered on 07/20/18 09:34; Admin Dose 100 MLS/HR; Start 07/16/18 at 11:30 Vancomycin/Sodium Chloride 250 ml @ 125 mls/hr Q12H IVPB Last administered on 07/20/18 11:37; Admin Dose 125 MLS/HR; Start 07/16/18 at 12:00 IV Flush (NS 3 ml) 3 ml PER PROTOCOL IV ; Start 07/16/18 at 11:30 Ondansetron HCl (Zofran Inj) 4 mg Q6H PRN IV NAUSEA/VOMITING; Start 07/16/18 at 11:30 Morphine Sulfate (morphine) 2 mg Q4H PRN IV .SEVERE PAIN 7-10 Last administered on 07/17/18at 11:00; Admin Dose 2 MG; Start 07/16/18 at 11:30 Miscellaneous Information (Pending Santyl Order For Wound Care) This patient dugan... PRN PRN XX WOUND CARE; Start 07/16/18 at 13:00 Pantoprazole (Protonix Iv) 40 mg DAILY@06 IV Last administered on 07/20/18 06:03; Admin Dose 40 MG; Start 07/18/18 at 06:00 Diltiazem HCl (Cardizem) 60 mg Q6 GTB Last administered on 07/20/18at 11:33; Admin Dose 60 MG; Start 07/18/18 at 15:30 Metoprolol Tartrate (Lopressor) 5 mg Q1H PRN IV heart rate over 120; Start 07/18/18 at 14:30 Collagenase (Santyl) 1 applic DAILY TOP Last administered on 07/20/18 09:38; Admin Dose 1 APPLIC; Start 07/18/18 at 20:00 Acetaminophen (Tylenol Liquid) 650 mg Q4H PRN NGT MILD PAIN(1-3)OR ELEVATED TEMP Last administered on 07/20/18at 00:27; Admin Dose 650 MG; Start 07/19/18 at 09:30 Amiodarone HCl (Cordarone) 200 mg BID NGT Last administered on 07/20/18at 09:40; Admin Dose 200 MG; Start 07/19/18 at 12:30 Sodium Hypochlorite (Dakins Diluted ()) 1 applic DAILY TP ; Start 07/20/18 at 09:00 Levalbuterol (Xopenex Neb) 1.25 mg Q4H RESP THERAPY HHN Last administered on 07/20/18at 08:53; Admin Dose 1.25 MG; Start 07/19/18 at 22:30 Ipratropium [place] (Atrovent 0.02% (Neb)) 0.5 mg Q4H RESP THERAPY HHN Last administered on 07/20/18at 08:53; Admin Dose 0.5 MG; Start 07/19/18 at 22:30 Potassium Chloride 100 ml @ 50 mls/hr Q2H IVPB ; Start 07/20/18 at 13:00; Stop 07/20/18 at 16:59 Assessment/Plan Hospital Course (Demo Recall) Assessment 1. Atrial fibrillation with rapid ventricular rate 2. Hemorrhagic conversion of possible septic emboli. 3. 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 Dysphagia with nasogastric tube 5. Endo carditis mitral valve disease Plan 1. Continue neurosurgery recommendations agree that patient is a poor neurosurgical candidate. No acute indication for surgical intervention at present 2. Nasogastric tube feeding 3. Cardiology recommendations for rate control consider SUDEEP or transthoracic echocardiogram to evaluate for endocarditis. 4. Continue rate control p.o. diltiazem. 5. Contact the next of kin regarding goals of care 6. DVT and GI prophylaxis consider transfer back to [facility]. KELLY GAMEZ MD, [facility] July 20, 2018 12:32
[2018-07-20] MEDS: POTASSIUM CHLORIDE 100 ML IVPB SCH ×2 (12:36→14:15)
--- NOTE | 2018-07-20 13:17 | CONS ---
Assessment/Plan Assessment/Plan Hospital Course 72 yo M with multiple comorbidities and recent hx of infective endocarditis who presented to the ICU from [facility] for abnormal HCT results. CTH was notable for scattered intraparenchymal hemorrhages BL... for which neurology is consulted. The clinical picture is most concerning for hemorrhagic septic emboli. Echo on 07/07 is notable for MV vegetation. P: Await MRI brain, CTA H/N for further characterization Hold antiplatelets/anticoagulation in the short term Maintain SBP<160 [place] as able Limit sedating medications where possible Endocarditis and other medical management per primary Will follow clinically, to recommend neurologic studies, as necessary Consultation Date/Type/Reason Admit Date/Time July 16, 2018 at 06:08 Type of Consult Neurology Reason for Consultation embolic strokes Requesting Provider: KELLY GAMEZ MD, [facility] Date/Time of Note DATE: 07/20/18 TIME: 13:17 24 HR Interval Summary Free Text/Dictation Transferred to telemetry. Awaiting neuroimaging today. Exam Vital Signs Vitals Vital Signs Date Temp Pulse Resp B/P (MAP) Pulse Ox O2 O2 Flow FiO2 Time Delivery Rate 07/20/18 104 12:00 07/20/18 98.0 22 112/62 96 Room Air 11:25 (79) 07/20/18 4.0 08:53 07/17/18 60 16:45 Intake and Output 07/19/18 07/19/18 07/20/18 1515:00 23:00 07:00 IntakeIntake Total 1050 ml 105 ml 750 ml OutputOutput Total 195 ml 100 ml 650 ml BalanceBalance 855 ml 5 ml 100 ml Exam PE: Gen Appearance: No Apparent Distress HEENT: Normocephalic Cardiovascular: Regular rate Abdomen: Soft Extremities: Dry NE: The patient was awake, alert, and sparsely verbal. Disoriented. Unable to follow commands. Cranial nerve examination was limited by mental status. Pupils were equal and reactive to light. There was no afferent pupillary defect. Funduscopic examination was limited. Face was grossly symmetric, w/ present corneal and cough reflexes. Tone was normal. Muscle bulk was normal. I did not see fasciculations. The patient withdrew to noxious stimulation x 4. Coordination and gait testing was limited by mental status. Arm and leg reflexes were within normal limits and symmetric. Martinez's sign was absent. Plantar responses were flexor. ANDREA NOEL NP July 20, 2018 13:17
--- NOTE | 2018-07-20 13:39 | CONS ---
Assessment/Plan Assessment/Plan Hospital Course (Demo Recall) Patient is lethargic arousable, in no distress Indwelling: NG tube, Jimenez, left upper extremity PICC line Antimicrobials: Vancomycin, meropenem Physical examination: Fragile elderly man who is in no distress. Head atraumatic normocephalic neck is supple chest rise symmetrical breath sounds diminished bases. Heart: S1-S2. Abdomen soft bowel sounds present. Extremities without cyanosis Assessment: 1. Sepsis with ongoing fevers and leukocytosis 1. 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 Multiple intracranial hemorrhages 4. Healthcare associated pneumonia, possible ongoing aspiration 5. Acute on chronic encephalopathy 6. Cachexia 7. Atrial fibrillation status post RVR Plan: Stable, continue abx, aspiration precautions. Follow stool cultures. Patient need to continue IV vancomycin for 6 weeks Consultation Date/Type/Reason Admit Date/Time July 16, 2018 at 06:08 Initial Consult Date 07/18/18 Type of Consult id Requesting Provider: KELLY GAMEZ MD, [facility] Date/Time of Note DATE: 07/20/18 TIME: 13:38 Exam/Review of Systems Exam Vitals Vital Signs Date Temp Pulse Resp B/P (MAP) Pulse Ox O2 O2 Flow FiO2 Time Delivery Rate 07/20/18 104 12:00 07/20/18 98.0 22 112/62 96 Room Air 11:25 (79) 07/20/18 4.0 08:53 07/17/18 60 16:45 Intake and Output 07/19/18 07/19/18 07/20/18 1414:59 22:59 06:59 IntakeIntake Total 1170 ml 105 ml 750 ml OutputOutput Total 225 ml 100 ml 650 ml BalanceBalance 945 ml 5 ml 100 ml Results Result Diagram: 07/20/18 0554 07/20/18 0554 Results 24hrs Laboratory Tests Test 07/20/18 05:54 White Blood Count 8.0 # Red Blood Count 2.73 L Hemoglobin 8.0 L Hematocrit 24.9 L Mean Corpuscular Volume 91.2 Mean Corpuscular Hemoglobin 29.3 Mean Corpuscular Hemoglobin Concent 32.1 Red Cell Distribution Width 20.2 H Platelet Count 255 # Mean Platelet Volume 10.1 Immature Granulocytes % 1.000 H Neutrophils % 81.5 H Lymphocytes % 10.7 L Monocytes % 6.1 Eosinophils % 0.6 Basophils % 0.1 Nucleated Red Blood Cells % 0.0 Immature Granulocytes # 0.080 H Neutrophils # 6.5 Lymphocytes # 0.9 Monocytes # 0.5 Eosinophils # 0.1 Basophils # 0.0 Nucleated Red Blood Cells # 0.0 Erythrocyte Sedimentation Rate 45 H Sodium Level 134 L Potassium Level 3.3 L Chloride Level 105 Carbon Dioxide Level 23 Anion Gap 6 Blood Urea Nitrogen 17 Creatinine 0.44 L Est Glomerular Filtrat Rate mL/min > 60 Glucose Level 105 Calcium Level 7.6 L Phosphorus Level 2.6 Magnesium Level 2.1 Medications Medication Current Medications Vancomycin HCl (Vanco Iv Per Pharmacy) VANCOMYCIN PER PHARMACY PER PROTOCOL XX ; Start 07/16/18 at 10:30 Meropenem/Sodium Chloride 50 ml @ 100 mls/hr Q12 IVPB Last administered on 07/20/18at 09:34; Admin Dose 100 MLS/HR; Start 07/16/18 at 11:30 Vancomycin/Sodium Chloride 250 ml @ 125 mls/hr Q12H IVPB Last administered on 07/20/18at 11:37; Admin Dose 125 MLS/HR; Start 07/16/18 at 12:00 IV Flush (NS 3 ml) 3 ml PER PROTOCOL IV ; Start 07/16/18 at 11:30 Ondansetron HCl (Zofran Inj) 4 mg Q6H PRN IV NAUSEA/VOMITING; Start 07/16/18 at 11:30 Morphine Sulfate (morphine) 2 mg Q4H PRN IV .SEVERE PAIN 7-10 Last administered on 07/17/18at 11:00; Admin Dose 2 MG; Start 07/16/18 at 11:30 Miscellaneous Information (Pending [facility] Order For Wound Care) This patient dugan... PRN PRN XX WOUND CARE; Start 07/16/18 at 13:00 Pantoprazole (Protonix Iv) 40 mg DAILY@06 IV Last administered on 07/20/18at 06:03; Admin Dose 40 MG; Start 07/18/18 at 06:00 Diltiazem HCl (Cardizem) 60 mg Q6 GTB Last administered on 07/20/18at 11:33; Admin Dose 60 MG; Start 07/18/18 at 15:30 Metoprolol Tartrate (Lopressor) 5 mg Q1H PRN IV heart rate over 120; Start 07/18/18 at 14:30 Collagenase (Santyl) 1 applic DAILY TOP Last administered on 07/20/18 09:38; Admin Dose 1 APPLIC; Start 07/18/18 at 20:00 Acetaminophen (Tylenol Liquid) 650 mg Q4H PRN NGT MILD PAIN(1-3)OR ELEVATED T EMP Last administered on 07/20/18 00:27; Admin Dose 650 MG; Start 07/19/18 at 09:30 Amiodarone HCl (Cordarone) 200 mg BID NGT Last administered on 07/20/18at 09:40; Admin Dose 200 MG; Start 07/19/18 at 12:30 Sodium Hypochlorite (Dakins Diluted ()) 1 applic DAILY TP ; Start 07/20/18 at 09:00 Levalbuterol (Xopenex Neb) 1.25 mg Q4H RESP THERAPY HHN Last administered on 07/20/18 08:53; Admin Dose 1.25 MG; Start 07/19/18 at 22:30 Ipratropium [place] (Atrovent 0.02% (Neb)) 0.5 mg Q4H RESP THERAPY HHN Last administered on 07/20/18 08:53; Admin Dose 0.5 MG; Start 07/19/18 at 22:30 Potassium Chloride 100 ml @ 50 mls/hr Q2H IVPB Last administered on 07/20/18at 12:36; Admin Dose 50 MLS/HR; Start 07/20/18 at 13:00; Stop 07/20/18 at 16:59 SANDER WILL NP July 20, 2018 13:39
--- NOTE | 2018-07-20 13:41 | CONS ---
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 Encephalopathy CVA, hemorrhagic Nonsustained ventricular tachycardia -Patient with overall controlled heart rates with episodes of nonsustained treatment tachycardia. Currently on Cardizem, would continue with addition of amiodarone -Maintain k>4.0 and Mg>2.0, will order potassium -Antibiotics as per infectious disease Consultation Date/Type/Reason Admit Date/Time July 16, 2018 at 06:08 Initial Consult Date 07/18/18 Type of Consult Cardiology Requesting Provider: KELLY GAMEZ MD, [facility] Date/Time of Note DATE: 07/20/18 TIME: 13:40 24 HR Interval Summary Free Text/Dictation Patient seen and examined Exam/Review of Systems Vital Signs Vitals Vital Signs Date Temp Pulse Resp B/P (MAP) Pulse Ox O2 O2 Flow FiO2 Time Delivery Rate 07/20/18 104 12:00 07/20/18 98.0 22 112/62 96 Room Air 11:25 (79) 07/20/18 4.0 08:53 07/17/18 60 16:45 Intake and Output 07/19/18 07/19/18 07/20/18 1515:00 23:00 07:00 IntakeIntake Total 1050 ml 105 ml 750 ml OutputOutput Total 195 ml 100 ml 650 ml BalanceBalance 855 ml 5 ml 100 ml Exam Exam Moaning, not answering questions Head: normocephalic Respiratory: other (Coarse breath sounds bilaterally, no wheezing) Cardiovascular: irregular rhythm (S1-S2 heard) Gastrointestinal: soft, non-tender, bowel sounds Extremities: edema (Trace) Labs Result Diagram: 07/20/18 0554 07/20/18 0554 Results 24hrs Laboratory Tests Test 07/20/18 05:54 White Blood Count 8.0 # Red Blood Count 2.73 L Hemoglobin 8.0 L Hematocrit 24.9 L Mean Corpuscular Volume 91.2 Mean Corpuscular Hemoglobin 29.3 Mean Corpuscular Hemoglobin Concent 32.1 Red Cell Distribution Width 20.2 H Platelet Count 255 # Mean Platelet Volume 10.1 Immature Granulocytes % 1.000 H Neutrophils % 81.5 H Lymphocytes % 10.7 L Monocytes % 6.1 Eosinophils % 0.6 Basophils % 0.1 Nucleated Red Blood Cells % 0.0 Immature Granulocytes # 0.080 H Neutrophils # 6.5 Lymphocytes # 0.9 Monocytes # 0.5 Eosinophils # 0.1 Basophils # 0.0 Nucleated Red Blood Cells # 0.0 Erythrocyte Sedimentation Rate 45 H Sodium Level 134 L Potassium Level 3.3 L Chloride Level 105 Carbon Dioxide Level 23 Anion Gap 6 Blood Urea Nitrogen 17 Creatinine 0.44 L Est Glomerular Filtrat Rate mL/min > 60 Glucose Level 105 Calcium Level 7.6 L Phosphorus Level 2.6 Magnesium Level 2.1 Medications Medications Current Medications Vancomycin HCl (Vanco Iv Per Pharmacy) VANCOMYCIN PER PHARMACY PER PROTOCOL XX ; Start 07/16/18 at 10:30 Meropenem/Sodium Chloride 50 ml @ 100 mls/hr Q12 IVPB Last administered on 07/20/18at 09:34; Admin Dose 100 MLS/HR; Start 07/16/18 at 11:30 Vancomycin/Sodium Chloride 250 ml @ 125 mls/hr Q12H IVPB Last administered on 07/20/18at 11:37; Admin Dose 125 MLS/HR; Start 07/16/18 at 12:00 IV Flush (NS 3 ml) 3 ml PER PROTOCOL IV ; Start 07/16/18 at 11:30 Ondansetron HCl (Zofran Inj) 4 mg Q6H PRN IV NAUSEA/VOMITING; Start 07/16/18 at 11:30 Morphine Sulfate (morphine) 2 mg Q4H PRN IV .SEVERE PAIN 7-10 Last administered on 07/17/18at 11:00; Admin Dose 2 MG; Start 07/16/18 at 11:30 Miscellaneous Information (Pending Santyl Order For Wound Care) This patient dugan... PRN PRN XX WOUND CARE; Start 07/16/18 at 13:00 Pantoprazole (Protonix Iv) 40 mg DAILY@06 IV Last administered on 07/20/18at 06:03; Admin Dose 40 MG; Start 07/18/18 at 06:00 Diltiazem HCl (Cardizem) 60 mg Q6 GTB Last administered on 07/20/18at 11:33; Admin Dose 60 MG; Start 07/18/18 at 15:30 Metoprolol Tartrate (Lopressor) 5 mg Q1H PRN IV heart rate over 120; Start 07/18/18 at 14:30 Collagenase (Santyl) 1 applic DAILY TOP Last administered on 07/20/18 09:38; Admin Dose 1 APPLIC; Start 07/18/18 at 20:00 Acetaminophen (Tylenol Liquid) 650 mg Q4H PRN NGT MILD PAIN(1-3)OR ELEVATED TEMP Last administered on 07/20/18 00:27; Admin Dose 650 MG; Start 07/19/18 at 09:30 Amiodarone HCl (Cordarone) 200 mg BID NGT Last administered on 07/20/18 09:40; Admin Dose 200 MG; Start 07/19/18 at 12:30 Sodium Hypochlorite (Dakins Diluted ()) 1 applic DAILY TP ; Start 07/20/18 at 09:00 Levalbuterol (Xopenex Neb) 1.25 mg Q4H RESP THERAPY HHN Last administered on 07/20/18 08:53; Admin Dose 1.25 MG; Start 07/19/18 at 22:30 Ipratropium [place] (Atrovent 0.02% (Neb)) 0.5 mg Q4H RESP THERAPY HHN Last administered on 07/20/18 08:53; Admin Dose 0.5 MG; Start 07/19/18 at 22:30 Potassium Chloride 100 ml @ 50 mls/hr Q2H IVPB Last administered on 07/20/18 12:36; Admin Dose 50 MLS/HR; Start 07/20/18 at 13:00; Stop 07/20/18 at 16:59 Charan Cottrell DO July 20, 2018 13:41
[2018-07-20] MEDS ORDERED: POTASSIUM CHLORIDE 20 MEQ POWDER FOR ORAL SOLN NGT ONE (14:00)
[2018-07-20] MEDS ORDERED: DILTIAZEM 25 MG INJ IV PRN (16:30)
[2018-07-20] MEDS: morphine 2 MG INJ IV PRN (16:56)
[2018-07-20] MEDS ORDERED: FUROSEMIDE 40 MG INJ IV PRN (17:30)
--- NOTE | 2018-07-20 19:13 | PN ---
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 Merrem? - Unfortunately we have no collateral contacts for this patient Can transfer back to [facility] Result Diagram: 07/20/18 0554 07/20/18 0554 Results 24hrs Laboratory Tests Test 07/20/18 05:54 07/20/18 17:10 White Blood Count 8.0 # Red Blood Count 2.73 L Hemoglobin 8.0 L Hematocrit 24.9 L Mean Corpuscular Volume 91.2 Mean Corpuscular Hemoglobin 29.3 Mean Corpuscular Hemoglobin Concent 32.1 Red Cell Distribution Width 20.2 H Platelet Count 255 # Mean Platelet Volume 10.1 Immature Granulocytes % 1.000 H Neutrophils % 81.5 H Lymphocytes % 10.7 L Monocytes % 6.1 Eosinophils % 0.6 Basophils % 0.1 Nucleated Red Blood Cells % 0.0 Immature Granulocytes # 0.080 H Neutrophils # 6.5 Lymphocytes # 0.9 Monocytes # 0.5 Eosinophils # 0.1 Basophils # 0.0 Nucleated Red Blood Cells # 0.0 Erythrocyte Sedimentation Rate 45 H Sodium Level 134 L Potassium Level 3.3 L Chloride Level 105 Carbon Dioxide Level 23 Anion Gap 6 Blood Urea Nitrogen 17 Creatinine 0.44 L Est Glomerular Filtrat Rate mL/min > 60 Glucose Level 105 Calcium Level 7.6 L Phosphorus Level 2.6 Magnesium Level 2.1 Rapid Plasma Reagin NONREACTIVE Blood Gas Specimen Source Blood arterial Arterial Blood Date Drawn 07/20/2018 5:15:52 PM Arterial Blood pH (Temp corrected) 7.457 H Arterial Blood pCO2 (Temp correct) 28.1 L Arterial Blood pO2 (Temp corrected) 89.8 Arterial Blood HCO3 19.4 L Arterial Blood Base Excess -3.6 L Arterial Blood Oxygen Saturation 96.5 Zane Test ACCEPTAB Arterial Blood Gas Puncture Site Right Radial Arterial Blood Carboxyhemoglobin 0.3 Arterial Blood Methemoglobin 0.3 Blood Gas A-a O2 Differential 595.1 H Oxyhemoglobin Percent 95.9 Blood Gas Temperature 37.0 Blood Gas Modality MASK - NRB FiO2 100.0 Blood Gas Notified Whom [place] Blood Gas Notified Time 07/20/2018 5:25:10 PM Subjective 24 Hr Interval Summary Constitutional: no complaints, improved Eyes: no complaints ENT: no complaints Respiratory: no complaints Cardiovascular: no complaints Gastrointestinal: no complaints Genitourinary: no complaints Musculoskeletal: no complaints Skin: no complaints Neurologic: no complaints Endocrine: no complaints Lymphatic: no complaints Psychological: no complaints, nl mood/affect Immunologic: no complaints Exam/Review of Systems Exam Vitals Vital Signs Date Temp Pulse Resp B/P (MAP) Pulse Ox O2 O2 Flow FiO2 Time Delivery Rate 07/20/18 95 96 100 17:15 07/20/18 32 Nasal 5.0 16:53 Cannula 07/20/18 98.4 121/84 15:31 (96) Intake and Output 07/19/18 07/19/18 07/20/18 1515:00 23:00 07:00 IntakeIntake Total 1050 ml 105 ml 750 ml OutputOutput Total 195 ml 100 ml 650 ml BalanceBalance 855 ml 5 ml 100 ml Results Results 24hrs Laboratory Tests Test 07/20/18 05:54 07/20/18 17:10 White Blood Count 8.0 # Red Blood Count 2.73 L Hemoglobin 8.0 L Hematocrit 24.9 L Mean Corpuscular Volume 91.2 Mean Corpuscular Hemoglobin 29.3 Mean Corpuscular Hemoglobin Concent 32.1 Red Cell Distribution Width 20.2 H Platelet Count 255 # Mean Platelet Volume 10.1 Immature Granulocytes % 1.000 H Neutrophils % 81.5 H Lymphocytes % 10.7 L Monocytes % 6.1 Eosinophils % 0.6 Basophils % 0.1 Nucleated Red Blood Cells % 0.0 Immature Granulocytes # 0.080 H Neutrophils # 6.5 Lymphocytes # 0.9 Monocytes # 0.5 Eosinophils # 0.1 Basophils # 0.0 Nucleated Red Blood Cells # 0.0 Erythrocyte Sedimentation Rate 45 H Sodium Level 134 L Potassium Level 3.3 L Chloride Level 105 Carbon Dioxide Level 23 Anion Gap 6 Blood Urea Nitrogen 17 Creatinine 0.44 L Est Glomerular Filtrat Rate mL/min > 60 Glucose Level 105 Calcium Level 7.6 L Phosphorus Level 2.6 Magnesium Level 2.1 Rapid Plasma Reagin NONREACTIVE Blood Gas Specimen Source Blood arterial Arterial Blood Date Drawn 07/20/2018 5:15:52 PM Arterial Blood pH (Temp corrected) 7.457 H Arterial Blood pCO2 (Temp correct) 28.1 L Arterial Blood pO2 (Temp corrected) 89.8 Arterial Blood HCO3 19.4 L Arterial Blood Base Excess -3.6 L Arterial Blood Oxygen Saturation 96.5 Zane Test ACCEPTAB Arterial Blood Gas Puncture Site Right Radial Arterial Blood Carboxyhemoglobin 0.3 Arterial Blood Methemoglobin 0.3 Blood Gas A-a O2 Differential 595.1 H Oxyhemoglobin Percent 95.9 Blood Gas Temperature 37.0 Blood Gas Modality MASK - NRB FiO2 100.0 Blood Gas Notified Whom [place] Blood Gas Notified Time 07/20/2018 5:25:10 PM Medications Medication Current Medications Vancomycin HCl (Vanco Iv Per Pharmacy) VANCOMYCIN PER PHARMACY PER PROTOCOL XX ; Start 07/16/18 at 10:30 Meropenem/Sodium Chloride 50 ml @ 100 mls/hr Q12 IVPB Last administered on 07/20/18at 09:34; Admin Dose 100 MLS/HR; Start 07/16/18 at 11:30 Vancomycin/Sodium Chloride 250 ml @ 125 mls/hr Q12H IVPB Last administered on 07/20/18at 11:37; Admin Dose 125 MLS/HR; Start 07/16/18 at 12:00 IV Flush (NS 3 ml) 3 ml PER PROTOCOL IV ; Start 07/16/18 at 11:30 Ondansetron HCl (Zofran Inj) 4 mg Q6H PRN IV NAUSEA/VOMITING; Start 07/16/18 at 11:30 Morphine Sulfate (morphine) 2 mg Q4H PRN IV .SEVERE PAIN 7-10 Last administered on 07/20/18at 16:56; Admin Dose 2 MG; Start 07/16/18 at 11:30 Miscellaneous Information (Pending Santyl Order For Wound Care) This patient dugan... PRN PRN XX WOUND CARE; Start 07/16/18 at 13:00 Pantoprazole (Protonix Iv) 40 mg DAILY@06 IV Last administered on 07/20/18at 06:03; Admin Dose 40 MG; Start 07/18/18 at 06:00 Diltiazem HCl (Cardizem) 60 mg Q6 GTB Last administered on 07/20/18 17:25; Admin Dose 60 MG; Start 07/18/18 at 15:30 Metoprolol Tartrate (Lopressor) 5 mg Q1H PRN IV heart rate over 120 Last administered on 07/20/18 15:58; Admin Dose 5 MG; Start 07/18/18 at 14:30 Collagenase (Santyl) 1 applic DAILY TOP Last administered on 07/20/18 09:38; Admin Dose 1 APPLIC; Start 07/18/18 at 20:00 Acetaminophen (Tylenol Liquid) 650 mg Q4H PRN NGT MILD PAIN(1-3)OR ELEVATED TEMP Last administered on 07/20/18 00:27; Admin Dose 650 MG; Start 07/19/18 at 09:30 Amiodarone HCl (Cordarone) 200 mg BID NGT Last administered on 07/20/18 09:40; Admin Dose 200 MG; Start 07/19/18 at 12:30 Sodium Hypochlorite (Dakins Diluted ()) 1 applic DAILY TP Last administered on 07/20/18 13:53; Admin Dose 1 APPLIC; Start 07/20/18 at 09:00 Levalbuterol (Xopenex Neb) 1.25 mg Q4H RESP THERAPY HHN Last administered on 07/20/18 16:52; Admin Dose 1.25 MG; Start 07/19/18 at 22:30 Ipratropium [place] (Atrovent 0.02% (Neb)) 0.5 mg Q4H RESP THERAPY HHN Last administered on 07/20/18 16:52; Admin Dose 0.5 MG; Start 07/19/18 at 22:30 Miscellaneous Information (*Rx Drug Level Order Reminder*) VANCO TR AT 2300 ONCE ONCE XX ; Start 07/20/18 at 23:00; Stop 07/20/18 at 23:01 Diltiazem HCl (Cardizem Iv) 10 mg Q1H PRN IV ELEVATED HEART RATE; Start 07/20/18 at 16:30 Furosemide (Lasix) 40 mg ONCE PRN IV SHORTNESS OF BREATH Last administered on 5/29/19at 17:19; Admin Dose 40 MG; Start 07/20/18 at 17:30; Stop 07/20/18 at 23:45 DEBBIE GALLEGOS MD July 20, 2018 19:13
[2018-07-21] VITALS (20 sets, daily range): BP systolic 97–148; BP diastolic 55–78; PULSE 74–175; RESP 17–19
[2018-07-21] MEDS: DILTIAZEM 60 MG TAB GTB SCH ×4 (00:37→17:00)
[2018-07-21] MEDS: VANCOMYCIN 750 MG (PMX) 250 ML IVPB SCH ×2 (00:38→12:42)
[2018-07-21] MEDS: IPRATROPIUM (NEB) 0.5 MG/2.5 ML AMP HHN SCH ×6 (01:01→20:35)
[2018-07-21] MEDS: LEVALBUTEROL (NEB) 1.25 MG/0.5 ML AMP HHN SCH ×6 (01:01→20:35)
[2018-07-21] MEDS: PANTOPRAZOLE 40 MG INJ IV SCH (06:20)
[2018-07-21] MEDS: AMIODARONE 200 MG TAB NGT SCH ×2 (08:10→21:59)
[2018-07-21] MEDS: MEROPENEM 1 GM/50ML(PMX) 50 ML IVPB SCH ×2 (08:16→22:00)
[2018-07-21] MEDS: COLLAGENASE 5 GM (UD JAR) TOP SCH (09:00)
[2018-07-21] MEDS: BALSAM PERU/CASTOR OIL 60 GM TUBE TOP SCH (09:00)
[2018-07-21] MEDS: DAKINS 0.0125%(1/40) 473 ML SOLUTION TP SCH (09:00)
--- NOTE | 2018-07-21 11:38 | CONS ---
Consult Date/Type/Reason Admit Date/Time July 16, 2018 at 06:08 Initial Consult Date 07/16/18 Type of Consult Pulmonary Requesting Provider: KELLY GAMEZ MD, [facility] Date/Time of Note DATE: 07/21/18 TIME: 11:37 Subjective Declining condition yesterday requiring bilevel ventilation. More alert this morning. Decreased work of breathing. Objective Vital Signs Date Temp Pulse Resp B/P (MAP) Pulse Ox O2 O2 Flow FiO2 Time Delivery Rate 07/21/18 98.1 99 19 128/77 96 11:07 (94) 07/21/18 70 08:35 07/21/18 Nasal 3.0 07:15 Cannula Intake and Output 07/20/18 07/20/18 07/21/18 1515:00 23:00 07:00 IntakeIntake Total 400 ml 150 ml 1000 ml OutputOutput Total 3150 ml BalanceBalance 400 ml 150 ml -2150 ml Exam GENERAL: Elderly appearing gentleman on bilevel ventilation nasogastric tube in place VITAL SIGNS: per chart NECK: Supple. No JVD or lymphadenopathy. CARDIAC EXAM: S1, S2. Early systolic ejection murmur. CHEST: Diminished air entry bilaterally ABDOMEN: Soft, nontender. No guarding or rebound. EXTREMITIES: No cyanosis, clubbing or edema. NEUROLOGIC: Generalized weakness. Vent Setting Fraction of Inspired Oxygen pe: 60 Results/Medications Result Diagram: 07/20/18 0554 07/20/18 0554 Results 24 hrs Chest x-ray demonstrates bilateral infiltrates and pulmonary edema Laboratory Tests Test 07/20/18 17:10 07/20/18 23:22 Blood Gas Specimen Source Blood arterial Arterial Blood Date Drawn 07/20/2018 5:15:52 PM Arterial Blood pH (Temp corrected) 7.457 H Arterial Blood pCO2 (Temp correct) 28.1 L Arterial Blood pO2 (Temp corrected) 89.8 Arterial Blood HCO3 19.4 L Arterial Blood Base Excess -3.6 L Arterial Blood Oxygen Saturation 96.5 Zane Test ACCEPTAB Arterial Blood Gas Puncture Site Right Radial Arterial Blood Carboxyhemoglobin 0.3 Arterial Blood Methemoglobin 0.3 Blood Gas A-a O2 Differential 595.1 H Oxyhemoglobin Percent 95.9 Blood Gas Temperature 37.0 Blood Gas Modality MASK - NRB FiO2 100.0 Blood Gas Notified Whom [place] Blood Gas Notified Time 07/20/2018 5:25:10 PM Vancomycin Level Trough 14.9 Medications Current Medications Vancomycin HCl (Vanco Iv Per Pharmacy) VANCOMYCIN PER PHARMACY PER PROTOCOL XX ; Start 07/16/18 at 10:30 Meropenem/Sodium Chloride 50 ml @ 100 mls/hr Q12 IVPB Last administered on 07/21/18 08:16; Admin Dose 100 MLS/HR; Start 07/16/18 at 11:30 Vancomycin/Sodium Chloride 250 ml @ 125 mls/hr Q12H IVPB Last administered on 07/21/18 00:38; Admin Dose 125 MLS/HR; Start 07/16/18 at 12:00 IV Flush (NS 3 ml) 3 ml PER PROTOCOL IV ; Start 07/16/18 at 11:30 Ondansetron HCl (Zofran Inj) 4 mg Q6H PRN IV NAUSEA/VOMITING; Start 07/16/18 at 11:30 Morphine Sulfate (morphine) 2 mg Q4H PRN IV .SEVERE PAIN 7-10 Last administered on 07/20/18 16:56; Admin Dose 2 MG; Start 07/16/18 at 11:30 Miscellaneous Information (Pending Santyl Order For Wound Care) This patient dugan... PRN PRN XX WOUND CARE; Start 07/16/18 at 13:00 Pantoprazole (Protonix Iv) 40 mg DAILY@06 IV Last administered on 07/21/18 06:20; Admin Dose 40 MG; Start 07/18/18 at 06:00 Diltiazem HCl (Cardizem) 60 mg Q6 GTB Last administered on 07/21/18 05:20; Admin Dose 60 MG; Start 07/18/18 at 15:30 Metoprolol Tartrate (Lopressor) 5 mg Q1H PRN IV heart rate over 120 Last administered on 07/20/18 15:58; Admin Dose 5 MG; Start 07/18/18 at 14:30 Collagenase (Santyl) 1 applic DAILY TOP Last administered on 07/21/18 09:00; Admin Dose 1 APPLIC; Start 07/18/18 at 20:00 Acetaminophen (Tylenol Liquid) 650 mg Q4H PRN NGT MILD PAIN(1-3)OR ELEVATED TEMP Last administered on 07/20/18 00:27; Admin Dose 650 MG; Start 07/19/18 at 09:30 Amiodarone HCl (Cordarone) 200 mg BID NGT Last administered on 07/21/18 08:10; Admin Dose 200 MG; Start 07/19/18 at 12:30 Sodium Hypochlorite (Dakins Diluted (40)) 1 applic DAILY TP Last administered on 07/21/18 09:00; Admin Dose 1 APPLIC; Start 07/20/18 at 09:00 Levalbuterol (Xopenex Neb) 1.25 mg Q4H RESP THERAPY HHN Last administered on 07/21/18 08:34; Admin Dose 1.25 MG; Start 07/19/18 at 22:30 Ipratropium [place] (Atrovent 0.02% (Neb)) 0.5 mg Q4H RESP THERAPY HHN Last administered on 07/21/18 08:34; Admin Dose 0.5 MG; Start 07/19/18 at 22:30 Diltiazem HCl (Cardizem Iv) 10 mg Q1H PRN IV ELEVATED HEART RATE; Start 07/20/18 at 16:30 Assessment/Plan Hospital Course (Demo Recall) Assessment 1. Atrial fibrillation with rapid ventricular rate 2. Hemorrhagic conversion of possible septic emboli. 3. 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 Dysphagia with nasogastric tube 5. Endo carditis mitral valve disease 6. Worsening hypoxemic respiratory failure likely secondary to volume overload Plan 1. Continue neurosurgery recommendations agree that patient is a poor neurosurgical candidate. No acute indication for surgical intervention at present 2. Nasogastric tube feeding 3. Cardiology recommendations for rate control 4. Continue rate control p.o. diltiazem. 5. Contact the next of kin regarding goals of care 6. DVT and GI prophylaxis 7. Increasing diuretics consider transfer back to [facility]. KELLY GAMEZ MD, [facility] July 21, 2018 11:38
--- NOTE | 2018-07-21 11:52 | CONS ---
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 Currently on Cardizem and amiodarone -Patient has been started on IV Lasix -Maintain k>4.0 and Mg>2.0, will order potassium -Antibiotics as per infectious disease Consultation Date/Type/Reason Admit Date/Time July 16, 2018 at 06:08 Initial Consult Date 07/18/18 Type of Consult Cardiology Requesting Provider: KELLY GAMEZ MD, [facility] Date/Time of Note DATE: 07/21/18 TIME: 11:50 24 HR Interval Summary Free Text/Dictation Patient seen and examined. Currently on BiPAP Exam/Review of Systems Vital Signs Vitals Vital Signs Date Temp Pulse Resp B/P (MAP) Pulse Ox O2 O2 Flow FiO2 Time Delivery Rate 07/21/18 98.1 99 19 128/77 96 11:07 (94) 07/21/18 70 08:35 07/21/18 Nasal 3.0 07:15 Cannula Intake and Output 07/20/18 07/20/18 07/21/18 1515:00 23:00 07:00 IntakeIntake Total 400 ml 150 ml 1000 ml OutputOutput Total 3150 ml BalanceBalance 400 ml 150 ml -2150 ml Exam Exam On BiPAP, moans when his name is called Head: normocephalic Respiratory: other (Coarse breath sounds bilaterally, scattered crackles) Cardiovascular: irregular rhythm, other (S1-S2 heard) Gastrointestinal: soft, non-tender, bowel sounds Extremities: edema (Trace) Labs Result Diagram: 07/20/18 0554 07/20/18 0554 Results 24hrs Laboratory Tests Test 07/20/18 17:10 07/20/18 23:22 Blood Gas Specimen Source Blood arterial Arterial Blood Date Drawn 07/20/2018 5:15:52 PM Arterial Blood pH (Temp corrected) 7.457 H Arterial Blood pCO2 (Temp correct) 28.1 L Arterial Blood pO2 (Temp corrected) 89.8 Arterial Blood HCO3 19.4 L Arterial Blood Base Excess -3.6 L Arterial Blood Oxygen Saturation 96.5 Zane Test ACCEPTAB Arterial Blood Gas Puncture Site Right Radial Arterial Blood Carboxyhemoglobin 0.3 Arterial Blood Methemoglobin 0.3 Blood Gas A-a O2 Differential 595.1 H Oxyhemoglobin Percent 95.9 Blood Gas Temperature 37.0 Blood Gas Modality MASK - NRB FiO2 100.0 Blood Gas Notified Whom [place] Blood Gas Notified Time 07/20/2018 5:25:10 PM Vancomycin Level Trough 14.9 Medications Medications Current Medications Vancomycin HCl (Vanco Iv Per Pharmacy) VANCOMYCIN PER PHARMACY PER PROTOCOL XX ; Start 07/16/18 at 10:30 Meropenem/Sodium Chloride 50 ml @ 100 mls/hr Q12 IVPB Last administered on 07/21/18 08:16; Admin Dose 100 MLS/HR; Start 07/16/18 at 11:30 Vancomycin/Sodium Chloride 250 ml @ 125 mls/hr Q12H IVPB Last administered on 07/21/18 00:38; Admin Dose 125 MLS/HR; Start 07/16/18 at 12:00 IV Flush (NS 3 ml) 3 ml PER PROTOCOL IV ; Start 07/16/18 at 11:30 Ondansetron HCl (Zofran Inj) 4 mg Q6H PRN IV NAUSEA/VOMITING; Start 07/16/18 at 11:30 Morphine Sulfate (morphine) 2 mg Q4H PRN IV .SEVERE PAIN 7-10 Last administered on 07/20/18 16:56; Admin Dose 2 MG; Start 07/16/18 at 11:30 Miscellaneous Information (Pending [facility] Order For Wound Care) This patient dugan... PRN PRN XX WOUND CARE; Start 07/16/18 at 13:00 Pantoprazole (Protonix Iv) 40 mg DAILY@06 IV Last administered on 07/21/18 06:20; Admin Dose 40 MG; Start 07/18/18 at 06:00 Diltiazem HCl (Cardizem) 60 mg Q6 GTB Last administered on 07/21/18 05:20; Admin Dose 60 MG; Start 07/18/18 at 15:30 Metoprolol Tartrate (Lopressor) 5 mg Q1H PRN IV heart rate over 120 Last administered on 07/20/18 15:58; Admin Dose 5 MG; Start 07/18/18 at 14:30 Collagenase (Santyl) 1 applic DAILY TOP Last administered on 07/21/18 09:00; Admin Dose 1 APPLIC; Start 07/18/18 at 20:00 Acetaminophen (Tylenol Liquid) 650 mg Q4H PRN NGT MILD PAIN(1-3)OR ELEVATED TEMP Last administered on 07/20/18 00:27; Admin Dose 650 MG; Start 07/19/18 at 09:30 Amiodarone HCl (Cordarone) 200 mg BID NGT Last administered on 07/21/18 08:10; Admin Dose 200 MG; Start 07/19/18 at 12:30 Sodium Hypochlorite (Dakins Diluted ()) 1 applic DAILY TP Last administered on 07/21/18 09:00; Admin Dose 1 APPLIC; Start 07/20/18 at 09:00 Levalbuterol (Xopenex Neb) 1.25 mg Q4H RESP THERAPY HHN Last administered on 07/21/18 08:34; Admin Dose 1.25 MG; Start 07/19/18 at 22:30 Ipratropium [place] (Atrovent 0.02% (Neb)) 0.5 mg Q4H RESP THERAPY HHN Last administered on 07/21/18 08:34; Admin Dose 0.5 MG; Start 07/19/18 at 22:30 Diltiazem HCl (Cardizem Iv) 10 mg Q1H PRN IV ELEVATED HEART RATE; Start 07/20/18 at 16:30 Furosemide (Lasix) 40 mg DAILY IV ; Start 07/21/18 at 12:00 Charan Cottrell DO July 21, 2018 11:52
[2018-07-21] MEDS ORDERED: POTASSIUM CHLORIDE 20 MEQ POWDER FOR ORAL SOLN NGT ONE (12:00)
--- NOTE | 2018-07-21 12:09 | CONS ---
Assessment/Plan Assessment/Plan Hospital Course 72 yo M with multiple comorbidities and recent hx of infective endocarditis who presented to the ICU from [facility] for abnormal HCT results. CTH was notable for scattered intraparenchymal hemorrhages BL... for which neurology is consulted. The clinical picture is most concerning for hemorrhagic septic emboli. Echo on 07/07 is notable for MV vegetation. CTA H/N is without acute intracranial pathology. Scattered IPHs are stable. No evidence of severe stenoses or occlusion P: Await MRI brain Hold antiplatelets/anticoagulation in the short term Maintain SBP<160 [place] as able Limit sedating medications where possible Endocarditis and other medical management per primary Will follow clinically, to recommend neurologic studies, as necessary Consultation Date/Type/Reason Admit Date/Time July 16, 2018 at 06:08 Type of Consult Neurology Reason for Consultation embolic strokes Requesting Provider: KELLY GAMEZ MD, [facility] Date/Time of Note DATE: 07/21/18 TIME: 12:09 24 HR Interval Summary Free Text/Dictation Continues acute care. S/p CTA H/N. Awaiting MRI brain. No further complaints reported today. Exam Vital Signs Vitals Vital Signs Date Temp Pulse Resp B/P (MAP) Pulse Ox O2 O2 Flow FiO2 Time Delivery Rate 07/21/18 6.0 12:06 07/21/18 98.1 99 19 128/77 96 11:07 (94) 07/21/18 70 08:35 07/21/18 Nasal 07:15 Cannula Intake and Output 07/20/18 07/20/18 07/21/18 1515:00 23:00 07:00 IntakeIntake Total 400 ml 150 ml 1000 ml OutputOutput Total 3150 ml BalanceBalance 400 ml 150 ml -2150 ml Exam PE: Gen Appearance: No Apparent Distress HEENT: Normocephalic Cardiovascular: Regular rate Abdomen: Soft Extremities: Dry NE: The patient was awake, alert, and sparsely verbal. Disoriented. Unable to follow commands. Cranial nerve examination was limited by mental status. Pupils were equal and reactive to light. There was no afferent pupillary defect. Funduscopic examination was limited. Face was grossly symmetric, w/ present corneal and cough reflexes. Tone was normal. Muscle bulk was normal. I did not see fasciculations. The patient moved his UE spontaneously; withdrew his lowers to noxious stimulation. Coordination and gait testing was limited by mental status. Arm and leg reflexes were within normal limits and symmetric. Martinez's sign was absent. Plantar responses were flexor. ANDREA NOEL NP July 21, 2018 12:09
[2018-07-21] MEDS: FUROSEMIDE 40 MG INJ IV SCH (12:39)
--- NOTE | 2018-07-21 13:56 | CONS ---
Assessment/Plan Assessment/Plan Hospital Course (Demo Recall) Patient is lethargic, in no distress Indwelling: NG tube, Jimenez, left upper extremity PICC line Antimicrobials: Vancomycin, meropenem Physical examination: Fragile elderly man who is in no distress. Head atraumatic normocephalic neck is supple chest rise symmetrical breath sounds diminished bases. Heart: S1-S2. Abdomen soft bowel sounds present. Extremities without cyanosis Assessment: 1. Sepsis 1. 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 Multiple intracranial hemorrhages 4. Healthcare associated pneumonia, possible ongoing aspiration 5. Acute on chronic encephalopathy 6. Cachexia 7. Atrial fibrillation status post RVR Plan: Remains stable, continue abx, aspiration precautions. Patient need to continue IV vancomycin for 6 weeks, f/u neurology rec-s, pending brain MRI Consultation Date/Type/Reason Admit Date/Time July 16, 2018 at 06:08 Initial Consult Date 07/18/18 Type of Consult id Requesting Provider: KELLY GAMEZ MD, [facility] Date/Time of Note DATE: 07/21/18 TIME: 13:54 Exam/Review of Systems Exam Vitals Vital Signs Date Temp Pulse Resp B/P (MAP) Pulse Ox O2 O2 Flow FiO2 Time Delivery Rate 07/21/18 77 22 99 Nasal 6.0 13:15 Cannula 07/21/18 98.1 128/77 11:07 (94) 07/21/18 70 10:00 Intake and Output 07/20/18 07/20/18 07/21/18 1515:00 23:00 07:00 IntakeIntake Total 400 ml 150 ml 1000 ml OutputOutput Total 3150 ml BalanceBalance 400 ml 150 ml -2150 ml Results Result Diagram: 07/20/18 0554 07/20/18 0554 Results 24hrs Laboratory Tests Test 07/20/18 17:10 07/20/18 23:22 Blood Gas Specimen Source Blood arterial Arterial Blood Date Drawn 07/20/2018 5:15:52 PM Arterial Blood pH (Temp corrected) 7.457 H Arterial Blood pCO2 (Temp correct) 28.1 L Arterial Blood pO2 (Temp corrected) 89.8 Arterial Blood HCO3 19.4 L Arterial Blood Base Excess -3.6 L Arterial Blood Oxygen Saturation 96.5 Zane Test ACCEPTAB Arterial Blood Gas Puncture Site Right Radial Arterial Blood Carboxyhemoglobin 0.3 Arterial Blood Methemoglobin 0.3 Blood Gas A-a O2 Differential 595.1 H Oxyhemoglobin Percent 95.9 Blood Gas Temperature 37.0 Blood Gas Modality MASK - NRB FiO2 100.0 Blood Gas Notified Whom [place] Blood Gas Notified Time 07/20/2018 5:25:10 PM Vancomycin Level Trough 14.9 Medications Medication Current Medications Vancomycin HCl (Vanco Iv Per Pharmacy) VANCOMYCIN PER PHARMACY PER PROTOCOL XX ; Start 07/16/18 at 10:30 Meropenem/Sodium Chloride 50 ml @ 100 mls/hr Q12 IVPB Last administered on 07/21/18 08:16; Admin Dose 100 MLS/HR; Start 07/16/18 at 11:30 Vancomycin/Sodium Chloride 250 ml @ 125 mls/hr Q12H IVPB Last administered on 07/21/18 12:42; Admin Dose 125 MLS/HR; Start 07/16/18 at 12:00 IV Flush (NS 3 ml) 3 ml PER PROTOCOL IV ; Start 07/16/18 at 11:30 Ondansetron HCl (Zofran Inj) 4 mg Q6H PRN IV NAUSEA/VOMITING; Start 07/16/18 at 11:30 Morphine Sulfate (morphine) 2 mg Q4H PRN IV .SEVERE PAIN 7-10 Last administered on 07/20/18 16:56; Admin Dose 2 MG; Start 07/16/18 at 11:30 Miscellaneous Information (Pending Santyl Order For Wound Care) This patient dugan... PRN PRN XX WOUND CARE; Start 07/16/18 at 13:00 Pantoprazole (Protonix Iv) 40 mg DAILY@06 IV Last administered on 07/21/18 06:20; Admin Dose 40 MG; Start 07/18/18 at 06:00 Diltiazem HCl (Cardizem) 60 mg Q6 GTB Last administered on 07/21/18 12:34; Admin Dose 60 MG; Start 07/18/18 at 15:30 Metoprolol Tartrate (Lopressor) 5 mg Q1H PRN IV heart rate over 120 Last administered on 07/20/18 15:58; Admin Dose 5 MG; Start 07/18/18 at 14:30 Collagenase (Santyl) 1 applic DAILY TOP Last administered on 07/21/18 09:00; Admin Dose 1 APPLIC; Start 07/18/18 at 20:00 Acetaminophen (Tylenol Liquid) 650 mg Q4H PRN NGT MILD PAIN(1-3)OR ELEVATED TEMP Last administered on 07/20/18 00:27; Admin Dose 650 MG; Start 07/19/18 at 09:30 Amiodarone HCl (Cordarone) 200 mg BID NGT Last administered on 07/21/18 08:10; Admin Dose 200 MG; Start 07/19/18 at 12:30 Sodium Hypochlorite (Dakins Diluted ()) 1 applic DAILY TP Last administered on 07/21/18 09:00; Admin Dose 1 APPLIC; Start 07/20/18 at 09:00 Levalbuterol (Xopenex Neb) 1.25 mg Q4H RESP THERAPY HHN Last administered on 07/21/18 13:16; Admin Dose 1.25 MG; Start 07/19/18 at 22:30 Ipratropium [place] (Atrovent 0.02% (Neb)) 0.5 mg Q4H RESP THERAPY HHN Last administered on 07/21/18 13:16; Admin Dose 0.5 MG; Start 07/19/18 at 22:30 Diltiazem HCl (Cardizem Iv) 10 mg Q1H PRN IV ELEVATED HEART RATE; Start 07/20/18 at 16:30 Furosemide (Lasix) 40 mg DAILY IV Last administered on 07/21/18 12:39; Admin Dose 40 MG; Start 07/21/18 at 12:00 SANDER WILL NP July 21, 2018 13:56
--- NOTE | 2018-07-21 15:53 | PN ---
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 SW attempting to contact children. He is full code but at high risk for decompensation without a good quality of life to protect Result Diagram: 07/20/18 0554 07/20/18 0554 Results 24hrs Laboratory Tests Test 07/20/18 17:10 07/20/18 23:22 Blood Gas Specimen Source Blood arterial Arterial Blood Date Drawn 07/20/2018 5:15:52 PM Arterial Blood pH (Temp corrected) 7.457 H Arterial Blood pCO2 (Temp correct) 28.1 L Arterial Blood pO2 (Temp corrected) 89.8 Arterial Blood HCO3 19.4 L Arterial Blood Base Excess -3.6 L Arterial Blood Oxygen Saturation 96.5 Zane Test ACCEPTAB Arterial Blood Gas Puncture Site Right Radial Arterial Blood Carboxyhemoglobin 0.3 Arterial Blood Methemoglobin 0.3 Blood Gas A-a O2 Differential 595.1 H Oxyhemoglobin Percent 95.9 Blood Gas Temperature 37.0 Blood Gas Modality MASK - NRB FiO2 100.0 Blood Gas Notified Whom [place] Blood Gas Notified Time 07/20/2018 5:25:10 PM Vancomycin Level Trough 14.9 Subjective 24 Hr Interval Summary Free Text/Dictation Siva has developed worsening respiratory status. Now on BIPAP. XR showing consolidation and edema Exam/Review of Systems Exam Vitals Vital Signs Date Temp Pulse Resp B/P (MAP) Pulse Ox O2 O2 Flow FiO2 Time Delivery Rate 07/21/18 97.9 101 19 109/58 100 Nasal 6.0 15:06 (75) Cannula 07/21/18 70 10:00 Intake and Output 07/20/18 07/20/18 07/21/18 1515:00 23:00 07:00 IntakeIntake Total 400 ml 150 ml 1000 ml OutputOutput Total 3150 ml BalanceBalance 400 ml 150 ml -2150 ml Results Results 24hrs Laboratory Tests Test 07/20/18 17:10 07/20/18 23:22 Blood Gas Specimen Source Blood arterial Arterial Blood Date Drawn 07/20/2018 5:15:52 PM Arterial Blood pH (Temp corrected) 7.457 H Arterial Blood pCO2 (Temp correct) 28.1 L Arterial Blood pO2 (Temp corrected) 89.8 Arterial Blood HCO3 19.4 L Arterial Blood Base Excess -3.6 L Arterial Blood Oxygen Saturation 96.5 Zane Test ACCEPTAB Arterial Blood Gas Puncture Site Right Radial Arterial Blood Carboxyhemoglobin 0.3 Arterial Blood Methemoglobin 0.3 Blood Gas A-a O2 Differential 595.1 H Oxyhemoglobin Percent 95.9 Blood Gas Temperature 37.0 Blood Gas Modality MASK - NRB FiO2 100.0 Blood Gas Notified Whom [place] Blood Gas Notified Time 07/20/2018 5:25:10 PM Vancomycin Level Trough 14.9 Medications Medication Current Medications Vancomycin HCl (Vanco Iv Per Pharmacy) VANCOMYCIN PER PHARMACY PER PROTOCOL XX ; Start 07/16/18 at 10:30 Meropenem/Sodium Chloride 50 ml @ 100 mls/hr Q12 IVPB Last administered on 07/21/18at 08:16; Admin Dose 100 MLS/HR; Start 07/16/18 at 11:30 Vancomycin/Sodium Chloride 250 ml @ 125 mls/hr Q12H IVPB Last administered on 07/21/18at 12:42; Admin Dose 125 MLS/HR; Start 07/16/18 at 12:00 IV Flush (NS 3 ml) 3 ml PER PROTOCOL IV ; Start 07/16/18 at 11:30 Ondansetron HCl (Zofran Inj) 4 mg Q6H PRN IV NAUSEA/VOMITING; Start 07/16/18 at 11:30 Morphine Sulfate (morphine) 2 mg Q4H PRN IV .SEVERE PAIN 7-10 Last administered on 07/20/18at 16:56; Admin Dose 2 MG; Start 07/16/18 at 11:30 Miscellaneous Information (Pending Santyl Order For Wound Care) This patient dugan... PRN PRN XX WOUND CARE; Start 07/16/18 at 13:00 Pantoprazole (Protonix Iv) 40 mg DAILY@06 IV Last administered on 07/21/18 06:20; Admin Dose 40 MG; Start 07/18/18 at 06:00 Diltiazem HCl (Cardizem) 60 mg Q6 GTB Last administered on 07/21/18 12:34; Adm in Dose 60 MG; Start 07/18/18 at 15:30 Metoprolol Tartrate (Lopressor) 5 mg Q1H PRN IV heart rate over 120 Last administered on 07/20/18 15:58; Admin Dose 5 MG; Start 07/18/18 at 14:30 Collagenase (Santyl) 1 applic DAILY TOP Last administered on 07/21/18 09:00; Admin Dose 1 APPLIC; Start 07/18/18 at 20:00 Acetaminophen (Tylenol Liquid) 650 mg Q4H PRN NGT MILD PAIN(1-3)OR ELEVATED TEMP Last administered on 07/20/18 00:27; Admin Dose 650 MG; Start 07/19/18 at 09:30 Amiodarone HCl (Cordarone) 200 mg BID NGT Last administered on 07/21/18 08:10; Admin Dose 200 MG; Start 07/19/18 at 12:30 Sodium Hypochlorite (Dakins Diluted (1/40)) 1 applic DAILY TP Last administered on 07/21/18 09:00; Admin Dose 1 APPLIC; Start 07/20/18 at 09:00 Levalbuterol (Xopenex Neb) 1.25 mg Q4H RESP THERAPY HHN Last administered on 07/21/18 13:16; Admin Dose 1.25 MG; Start 07/19/18 at 22:30 Ipratropium [place] (Atrovent 0.02% (Neb)) 0.5 mg Q4H RESP THERAPY HHN Last administered on 07/21/18 13:16; Admin Dose 0.5 MG; Start 07/19/18 at 22:30 Diltiazem HCl (Cardizem Iv) 10 mg Q1H PRN IV ELEVATED HEART RATE; Start 07/20/18 at 16:30 Furosemide (Lasix) 40 mg DAILY IV Last administered on 07/21/18at 12:39; Admin Dose 40 MG; Start 07/21/18 at 12:00 DEBBIE GALLEGOS MD July 21, 2018 15:53
[2018-07-22] VITALS (10 sets, daily range): BP systolic 96–123; BP diastolic 56–79; PULSE 79–106; RESP 17–19
[2018-07-22] MEDS: DILTIAZEM 60 MG TAB GTB SCH ×5 (00:29→23:49)
[2018-07-22] MEDS: VANCOMYCIN 750 MG (PMX) 250 ML IVPB SCH ×3 (00:30→23:50)
[2018-07-22] MEDS: IPRATROPIUM (NEB) 0.5 MG/2.5 ML AMP HHN SCH ×6 (01:32→21:16)
[2018-07-22] MEDS: LEVALBUTEROL (NEB) 1.25 MG/0.5 ML AMP HHN SCH ×6 (01:32→21:16)
[2018-07-22] MEDS: PANTOPRAZOLE 40 MG INJ IV SCH (05:38)
[2018-07-22] MEDS: FUROSEMIDE 40 MG INJ IV SCH (09:06)
[2018-07-22] MEDS: L ACIDOPHIL/B LACTIS/B LONGUM CAPSULE PO SCH (09:06)
[2018-07-22] MEDS: AMIODARONE 200 MG TAB NGT SCH ×2 (09:07→21:18)
[2018-07-22] MEDS: MEROPENEM 1 GM/50ML(PMX) 50 ML IVPB SCH ×2 (09:07→21:18)
[2018-07-22] MEDS: COLLAGENASE 5 GM (UD JAR) TOP SCH (09:07)
[2018-07-22] MEDS: BALSAM PERU/CASTOR OIL 60 GM TUBE TOP SCH (09:08)
[2018-07-22] MEDS: DAKINS 0.0125%(1/40) 473 ML SOLUTION TP SCH (09:08)
--- NOTE | 2018-07-22 11:15 | CONS ---
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 Currently on Cardizem and amiodarone -Patient on IV Lasix, titrate as needed -Maintain k>4.0 and Mg>2.0, will order potassium -Antibiotics as per infectious disease Consultation Date/Type/Reason Admit Date/Time July 16, 2018 at 06:08 Initial Consult Date 07/18/18 Type of Consult Cardiology Requesting Provider: KELLY GAMEZ MD, [facility] Date/Time of Note DATE: 07/22/18 TIME: 11:14 24 HR Interval Summary Free Text/Dictation Patient seen and examined. Not answering questions consistently Exam/Review of Systems Vital Signs Vitals Vital Signs Date Temp Pulse Resp B/P (MAP) Pulse Ox O2 O2 Flow FiO2 Time Delivery Rate 07/22/18 3.0 09:39 07/22/18 105 18 99 Nasal 09:39 Cannula 07/22/18 97.8 123/77 07:45 (92) 07/21/18 70 10:00 Intake and Output 07/21/18 07/21/18 07/22/18 1515:00 23:00 07:00 IntakeIntake Total 300 ml 50 ml 1530 ml OutputOutput Total 2250 ml 900 ml BalanceBalance 300 ml -2200 ml 630 ml Exam Constitutional: alert (Moaning at times, no apparent distress) Head: normocephalic Respiratory: other (Coarse breath sounds bilaterally, no wheezing) Cardiovascular: irregular rhythm (S1-S2 heard) Gastrointestinal: soft, non-tender, bowel sounds Extremities: edema (Trace) Labs Result Diagram: 07/22/1861907/22/18619 Results 24hrs Laboratory Tests Test 07/22/18 06:20 White Blood Count 8.5 Red Blood Count 2.88 L Hemoglobin 8.3 L Hematocrit 26.1 L Mean Corpuscular Volume 90.6 Mean Corpuscular Hemoglobin 28.8 L Mean Corpuscular Hemoglobin Concent 31.8 L Red Cell Distribution Width 19.8 H Platelet Count 335 # Mean Platelet Volume 9.4 Immature Granulocytes % 1.400 H Neutrophils % 75.9 Lymphocytes % 10.0 L Monocytes % 7.5 Eosinophils % 5.0 Basophils % 0.2 Nucleated Red Blood Cells % 0.0 Immature Granulocytes # 0.120 H Neutrophils # 6.5 Lymphocytes # 0.9 Monocytes # 0.6 Eosinophils # 0.4 Basophils # 0.0 Nucleated Red Blood Cells # 0.0 Sodium Level 132 L Potassium Level 3.6 Chloride Level 102 Carbon Dioxide Level 25 Anion Gap 5 Blood Urea Nitrogen 17 Creatinine 0.43 L Est Glomerular Filtrat Rate mL/min > 60 Glucose Level 125 Calcium Level 8.0 L Phosphorus Level 2.4 L Magnesium Level 2.1 Medications Medications Current Medications Vancomycin HCl (Vanco Iv Per Pharmacy) VANCOMYCIN PER PHARMACY PER PROTOCOL XX ; Start 07/16/18 at 10:30 Meropenem/Sodium Chloride 50 ml @ 100 mls/hr Q12 IVPB Last administered on 07/22/18at 09:07; Admin Dose 100 MLS/HR; Start 07/16/18 at 11:30 Vancomycin/Sodium Chloride 250 ml @ 125 mls/hr Q12H IVPB Last administered on 07/22/18at 00:30; Admin Dose 125 MLS/HR; Start 07/16/18 at 12:00 IV Flush (NS 3 ml) 3 ml PER PROTOCOL IV ; Start 07/16/18 at 11:30 Ondansetron HCl (Zofran Inj) 4 mg Q6H PRN IV NAUSEA/VOMITING; Start 07/16/18 at 11:30 Morphine Sulfate (morphine) 2 mg Q4H PRN IV .SEVERE PAIN 7-10 Last administered on 07/20/18at 16:56; Admin Dose 2 MG; Start 07/16/18 at 11:30 Miscellaneous Information (Pending Santyl Order For Wound Care) This patient dugan... PRN PRN XX WOUND CARE; Start 07/16/18 at 13:00 Pantoprazole (Protonix Iv) 40 mg DAILY@06 IV Last administered on 07/21/18at 06:20; Admin Dose 40 MG; Start 07/18/18 at 06:00 Diltiazem HCl (Cardizem) 60 mg Q6 GTB Last administered on 07/22/18at 05:37; Ad min Dose 60 MG; Start 07/18/18 at 15:30 Metoprolol Tartrate (Lopressor) 5 mg Q1H PRN IV heart rate over 120 Last administered on 07/20/18 15:58; Admin Dose 5 MG; Start 07/18/18 at 14:30 Collagenase (Santyl) 1 applic DAILY TOP Last administered on 07/22/18 09:07; Admin Dose 1 APPLIC; Start 07/18/18 at 20:00 Acetaminophen (Tylenol Liquid) 650 mg Q4H PRN NGT MILD PAIN(1-3)OR ELEVATED TEMP Last administered on 07/20/18 00:27; Admin Dose 650 MG; Start 07/19/18 at 09:30 Amiodarone HCl (Cordarone) 200 mg BID NGT Last administered on 07/22/18 09:07; Admin Dose 200 MG; Start 07/19/18 at 12:30 Sodium Hypochlorite (Dakins Diluted ()) 1 applic DAILY TP Last administered on 07/22/18 09:08; Admin Dose 1 APPLIC; Start 07/20/18 at 09:00 Levalbuterol (Xopenex Neb) 1.25 mg Q4H RESP THERAPY HHN Last administered on 07/22/18 09:39; Admin Dose 1.25 MG; Start 07/19/18 at 22:30 Ipratropium [place] (Atrovent 0.02% (Neb)) 0.5 mg Q4H RESP THERAPY HHN Last administered on 07/22/18 09:39; Admin Dose 0.5 MG; Start 07/19/18 at 22:30 Diltiazem HCl (Cardizem Iv) 10 mg Q1H PRN IV ELEVATED HEART RATE; Start 07/20/18 at 16:30 Furosemide (Lasix) 40 mg DAILY IV Last administered on 07/22/18 09:06; Admin Dose 40 MG; Start 07/21/18 at 12:00 Lactobacillus Acidophilus (Florajen3 Capsule) 1 each AM PO Last administered on 07/22/18 09:06; Admin Dose 1 EACH; Start 07/22/18 at 09:00 Charan Cottrell DO July 22, 2018 11:15
[2018-07-22] MEDS ORDERED: POTASSIUM CHLORIDE 20 MEQ POWDER FOR ORAL SOLN JT ONE (11:30)
--- NOTE | 2018-07-22 13:23 | CONS ---
Assessment/Plan Assessment/Plan Assessment/Plan (Recall) 72 yo M with multiple comorbidities and recent hx of infective endocarditis who presented to the ICU from [facility] for abnormal HCT results. CTH was notable for scattered intraparenchymal hemorrhages BL... for which neurology is consulted. The clinical picture is most concerning for hemorrhagic septic emboli. Echo on 07/07 is notable for MV vegetation. MRI brain is notable for acute R frontal farias radiata infarct, scattered IPHs are stable. CTA is without acute intracranial pathology; there is no evidence of severe stenoses or occlusion P: Hold antiplatelets/anticoagulation in the short term Maintain SBP<160 [place] as able Limit sedating medications where possible Endocarditis and other medical management per primary Will follow clinically, to recommend neurologic studies, as necessary Consultation Date/Type/Reason Admit Date/Time July 16, 2018 at 06:08 Type of Consult Neurology Requesting Provider: KELLY GAMEZ MD, [facility] Date/Time of Note DATE: 07/22/18 TIME: 13:23 24 HR Interval Summary Free Text/Dictation Continues acute care. S/p MRI brain. Pt remains stable. Exam/Review of Systems Exam Vitals Vital Signs Date Temp Pulse Resp B/P (MAP) Pulse Ox O2 O2 Flow FiO2 Time Delivery Rate 07/22/18 99 12:21 07/22/18 98.4 17 106/79 98 11:47 (88) 07/22/18 3.0 09:39 07/22/18 Nasal 09:39 Cannula 07/21/18 70 10:00 Intake and Output 07/21/18 07/21/18 07/22/18 1515:00 23:00 07:00 IntakeIntake Total 300 ml 50 ml 1530 ml OutputOutput Total 2250 ml 900 ml BalanceBalance 300 ml -2200 ml 630 ml Exam PE: Gen Appearance: No Apparent Distress HEENT: Normocephalic Cardiovascular: Regular rate Abdomen: Soft Extremities: Dry NE: The patient was awake and alert, though nonverbal. Able to track and follow axial commands. Unable to follow appendicular commands. Cranial nerve examination was limited by mental status. Pupils were equal and reactive to light. There was no afferent pupillary defect. Funduscopic examination was limited. Face was grossly symmetric, w/ present corneal and cough reflexes. Tone was normal. Muscle bulk was normal. I did not see fasciculations. The patient moved his UE spontaneously; withdrew his lowers to noxious stimulation. Coordination and gait testing was limited by mental status. Arm and leg reflexes were within normal limits and symmetric. Martinez's sign was absent. Plantar responses were flexor. Results Result Diagram: 07/22/18 0620 07/22/18 0620 Results 24hrs Laboratory Tests Test 07/22/18 06:20 White Blood Count 8.5 Red Blood Count 2.88 L Hemoglobin 8.3 L Hematocrit 26.1 L Mean Corpuscular Volume 90.6 Mean Corpuscular Hemoglobin 28.8 L Mean Corpuscular Hemoglobin Concent 31.8 L Red Cell Distribution Width 19.8 H Platelet Count 335 # Mean Platelet Volume 9.4 Immature Granulocytes % 1.400 H Neutrophils % 75.9 Lymphocytes % 10.0 L Monocytes % 7.5 Eosinophils % 5.0 Basophils % 0.2 Nucleated Red Blood Cells % 0.0 Immature Granulocytes # 0.120 H Neutrophils # 6.5 Lymphocytes # 0.9 Monocytes # 0.6 Eosinophils # 0.4 Basophils # 0.0 Nucleated Red Blood Cells # 0.0 Sodium Level 132 L Potassium Level 3.6 Chloride Level 102 Carbon Dioxide Level 25 Anion Gap 5 Blood Urea Nitrogen 17 Creatinine 0.43 L Est Glomerular Filtrat Rate mL/min > 60 Glucose Level 125 Calcium Level 8.0 L Phosphorus Level 2.4 L Magnesium Level 2.1 Medications Medication Current Medications Vancomycin HCl (Vanco Iv Per Pharmacy) VANCOMYCIN PER PHARMACY PER PROTOCOL XX ; Start 07/16/18 at 10:30 Meropenem/Sodium Chloride 50 ml @ 100 mls/hr Q12 IVPB Last administered on 07/22/18at 09:07; Admin Dose 100 MLS/HR; Start 07/16/18 at 11:30 Vancomycin/Sodium Chloride 250 ml @ 125 mls/hr Q12H IVPB Last administered on 07/22/18at 12:54; Admin Dose 125 MLS/HR; Start 07/16/18 at 12:00 IV Flush (NS 3 ml) 3 ml PER PROTOCOL IV ; Start 07/16/18 at 11:30 Ondansetron HCl (Zofran Inj) 4 mg Q6H PRN IV NAUSEA/VOMITING; Start 07/16/18 at 11:30 Morphine Sulfate (morphine) 2 mg Q4H PRN IV .SEVERE PAIN 7-10 Last administered on 07/20/18 16:56; Admin Dose 2 MG; Start 07/16/18 at 11:30 Miscellaneous Information (Pending Santyl Order For Wound Care) This patient dugan... PRN PRN XX WOUND CARE; Start 07/16/18 at 13:00 Pantoprazole (Protonix Iv) 40 mg DAILY@06 IV Last administered on 07/21/18 06:20; Admin Dose 40 MG; Start 07/18/18 at 06:00 Diltiazem HCl (Cardizem) 60 mg Q6 GTB Last administered on 07/22/18 12:51; Admin Dose 60 MG; Start 07/18/18 at 15:30 Metoprolol Tartrate (Lopressor) 5 mg Q1H PRN IV heart rate over 120 Last administered on 07/20/18 15:58; Admin Dose 5 MG; Start 07/18/18 at 14:30 Collagenase (Santyl) 1 applic DAILY TOP Last administered on 07/22/18 09:07; Admin Dose 1 APPLIC; Start 07/18/18 at 20:00 Acetaminophen (Tylenol Liquid) 650 mg Q4H PRN NGT MILD PAIN(1-3)OR ELEVATED TEMP Last administered on 07/20/18 00:27; Admin Dose 650 MG; Start 07/19/18 at 09:30 Amiodarone HCl (Cordarone) 200 mg BID NGT Last administered on 07/22/18 09:07; Admin Dose 200 MG; Start 07/19/18 at 12:30 Sodium Hypochlorite (Dakins Diluted ()) 1 applic DAILY TP Last administered on 07/22/18 09:08; Admin Dose 1 APPLIC; Start 07/20/18 at 09:00 Levalbuterol (Xopenex Neb) 1.25 mg Q4H RESP THERAPY HHN Last administered on 07/22/18 09:39; Admin Dose 1.25 MG; Start 07/19/18 at 22:30 Ipratropium [place] (Atrovent 0.02% (Neb)) 0.5 mg Q4H RESP THERAPY HHN Last administered on 07/22/18 09:39; Admin Dose 0.5 MG; Start 07/19/18 at 22:30 Diltiazem HCl (Cardizem Iv) 10 mg Q1H PRN IV ELEVATED HEART RATE; Start 07/20/18 at 16:30 Furosemide (Lasix) 40 mg DAILY IV Last administered on 07/22/18at 09:06; Admin Dose 40 MG; Start 07/21/18 at 12:00 Lactobacillus Acidophilus (Florajen3 Capsule) 1 each AM PO Last administered on 07/22/18at 09:06; Admin Dose 1 EACH; Start 07/22/18 at 09:00 ANDREA NOEL NP July 22, 2018 13:23
--- NOTE | 2018-07-22 13:30 | CONS ---
Assessment/Plan Assessment/Plan Hospital Course (Demo Recall) No acute changes overnight. Patient remains lethargic, arousable, in no distress. Indwelling: NG tube, Jimenez, left upper extremity PICC line Antimicrobials: Vancomycin, meropenem Chest x-ray this morning revealed multilobar infiltrates with small bilateral pleural effusions. Physical examination: Fragile elderly man who is in no distress. Head atraumatic normocephalic neck is supple chest rise symmetrical breath sounds diminished bases. Heart: S1-S2. Abdomen soft bowel sounds present. Extremities without cyanosis Assessment: 1. Sepsis 1. 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 Multiple intracranial hemorrhages 4. Healthcare associated pneumonia, possible ongoing aspiration 5. Acute on chronic encephalopathy 6. Cachexia 7. Atrial fibrillation status post RVR Plan: Remains stable, continue abx, aspiration precautions. Continue IV vancomycin till 08/27 Consultation Date/Type/Reason Admit Date/Time July 16, 2018 at 06:08 Initial Consult Date 07/18/18 Type of Consult id Requesting Provider: KELLY GAMEZ MD, [facility] Date/Time of Note DATE: 07/22/18 TIME: 13:26 Exam/Review of Systems Exam Vitals Vital Signs Date Temp Pulse Resp B/P (MAP) Pulse Ox O2 O2 Flow FiO2 Time Delivery Rate 07/22/18 99 12:21 07/22/18 98.4 17 106/79 98 11:47 (88) 07/22/18 3.0 09:39 07/22/18 Nasal 09:39 Cannula 07/21/18 70 10:00 Intake and Output 07/21/18 07/21/18 07/22/18 1515:00 23:00 07:00 IntakeIntake Total 300 ml 50 ml 1530 ml OutputOutput Total 2250 ml 900 ml BalanceBalance 300 ml -2200 ml 630 ml Results Result Diagram: 07/22/18 0620 07/22/18 0620 Results 24hrs Laboratory Tests Test 07/22/18 06:20 White Blood Count 8.5 Red Blood Count 2.88 L Hemoglobin 8.3 L Hematocrit 26.1 L Mean Corpuscular Volume 90.6 Mean Corpuscular Hemoglobin 28.8 L Mean Corpuscular Hemoglobin Concent 31.8 L Red Cell Distribution Width 19.8 H Platelet Count 335 # Mean Platelet Volume 9.4 Immature Granulocytes % 1.400 H Neutrophils % 75.9 Lymphocytes % 10.0 L Monocytes % 7.5 Eosinophils % 5.0 Basophils % 0.2 Nucleated Red Blood Cells % 0.0 Immature Granulocytes # 0.120 H Neutrophils # 6.5 Lymphocytes # 0.9 Monocytes # 0.6 Eosinophils # 0.4 Basophils # 0.0 Nucleated Red Blood Cells # 0.0 Sodium Level 132 L Potassium Level 3.6 Chloride Level 102 Carbon Dioxide Level 25 Anion Gap 5 Blood Urea Nitrogen 17 Creatinine 0.43 L Est Glomerular Filtrat Rate mL/min > 60 Glucose Level 125 Calcium Level 8.0 L Phosphorus Level 2.4 L Magnesium Level 2.1 Medications Medication Current Medications Vancomycin HCl (Vanco Iv Per Pharmacy) VANCOMYCIN PER PHARMACY PER PROTOCOL XX ; Start 07/16/18 at 10:30 Meropenem/Sodium Chloride 50 ml @ 100 mls/hr Q12 IVPB Last administered on 07/22/18 09:07; Admin Dose 100 MLS/HR; Start 07/16/18 at 11:30 Vancomycin/Sodium Chloride 250 ml @ 125 mls/hr Q12H IVPB Last administered on 07/22/18at 12:54; Admin Dose 125 MLS/HR; Start 07/16/18 at 12:00 IV Flush (NS 3 ml) 3 ml PER PROTOCOL IV ; Start 07/16/18 at 11:30 Ondansetron HCl (Zofran Inj) 4 mg Q6H PRN IV NAUSEA/VOMITING; Start 07/16/18 at 11:30 Morphine Sulfate (morphine) 2 mg Q4H PRN IV .SEVERE PAIN 7-10 Last administered on 07/20/18at 16:56; Admin Dose 2 MG; Start 07/16/18 at 11:30 Miscellaneous Information (Pending Santyl Order For Wound Care) This patient dugan... PRN PRN XX WOUND CARE; Start 07/16/18 at 13:00 Pantoprazole (Protonix Iv) 40 mg DAILY@06 IV Last administered on 07/21/18 06:20; Admin Dose 40 MG; Start 07/18/18 at 06:00 Diltiazem HCl (Cardizem) 60 mg Q6 GTB Last administered on 07/22/18at 12:51; Admin Dose 60 MG; Start 07/18/18 at 15:30 Metoprolol Tartrate (Lopressor) 5 mg Q1H PRN IV heart rate over 120 Last administered on 07/20/18 15:58; Admin Dose 5 MG; Start 07/18/18 at 14:30 Collagenase (Santyl) 1 applic DAILY TOP Last administered on 07/22/18 09:07; Admin Dose 1 APPLIC; Start 07/18/18 at 20:00 Acetaminophen (Tylenol Liquid) 650 mg Q4H PRN NGT MILD PAIN(1-3)OR ELEVATED TEMP Last administered on 07/20/18 00:27; Admin Dose 650 MG; Start 07/19/18 at 09:30 Amiodarone HCl (Cordarone) 200 mg BID NGT Last administered on 07/22/18 09:07; Admin Dose 200 MG; Start 07/19/18 at 12:30 Sodium Hypochlorite (Dakins Diluted ()) 1 applic DAILY TP Last administered on 07/22/18 09:08; Admin Dose 1 APPLIC; Start 07/20/18 at 09:00 Levalbuterol (Xopenex Neb) 1.25 mg Q4H RESP THERAPY HHN Last administered on 07/22/18 13:22; Admin Dose 1.25 MG; Start 07/19/18 at 22:30 Ipratropium [place] (Atrovent 0.02% (Neb)) 0.5 mg Q4H RESP THERAPY HHN Last administered on 07/22/18 13:22; Admin Dose 0.5 MG; Start 07/19/18 at 22:30 Diltiazem HCl (Cardizem Iv) 10 mg Q1H PRN IV ELEVATED HEART RATE; Start 07/20/18 at 16:30 Furosemide (Lasix) 40 mg DAILY IV Last administered on 07/22/18 09:06; Admin Dose 40 MG; Start 07/21/18 at 12:00 Lactobacillus Acidophilus (Florajen3 Capsule) 1 each AM PO Last administered on 07/22/18 09:06; Admin Dose 1 EACH; Start 07/22/18 at 09:00 SANDER WILL NP July 22, 2018 13:30
--- NOTE | 2018-07-22 15:27 | DS ---
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 CT head showed multifocal cerebral infarcts. He was seen by neurology and neurosurgeon with no recommendation for furhter interve ntion. He was continued on vancomcyin for endocarditis. He developed pneumonia and pulmonary edema for which he was given antibiotics and lasix. He is now being transfered to [place] for further optimization. Home Meds Active Scripts Lactobacillus Rhamnosus GG (Culturelle) 1 Each Capsule, 1 CAP PO BID for 30 Days, CAP Prov:PERLA NARANJO MD 03/19/18 Acetaminophen* (Tylenol*) 325 Mg Tablet, 650 MG PO Q6H PRN for PAIN LEVEL 1-3 OR FEVER for 30 Days, TAB Prov:PERLA NARANJO MD 03/19/18 Diltiazem Hcl* (Cardizem*) 30 Mg Tablet, 30 MG PO TID for 30 Days, TAB Prov:PERLA NARANJO MD 03/19/18 Reported Medications Zinc Sulfate* (Zinc Sulfate*) 220 Mg Tablet, 220 MG PO DAILY, TAB 06/30/18 Ascorbic Acid (Vitamin C) 500 Mg Tab, 500 MG PO DAILY, TAB 06/30/18 Mirtazapine* (Remeron*) 15 Mg Tablet, 15 MG PO HS, TAB 06/30/18 Pantoprazole* (Protonix*) 40 Mg Tablet.dr, 40 MG PO DAILY, TAB 06/30/18 Multivitamins* (Theragran*) 1 Tab Tab, 1 TAB PO DAILY, TAB 06/30/18 Megestrol Acetate* (Megestrol Acetate*) 400 Mg/10 Ml Susp, 400 MG PO BID, ML 06/30/18 Digoxin* (Digitek*) 250 Mcg Tablet, 0.25 MG PO DAILY, TAB 06/30/18 Benztropine Mesylate* (Benztropine Mesylate*) 1 Mg Tablet, 1 MG PO DAILY, TAB 03/13/18 Primary Care Provider [facility] Pending Labs Laboratory Tests Test 5/31/19 06:20 White Blood Count 8.5 10^3/ul (4.8-10.8) Red Blood Count 2.88 10^6/ul (4.70-6.10) Hemoglobin 8.3 g/dl (14.0-18.0) Hematocrit 26.1 % (42.0-52.0) Mean Corpuscular Volume 90.6 fl (82.0-101.0) Mean Corpuscular Hemoglobin 28.8 pg (29.0-33.0) Mean Corpuscular Hemoglobin Concent 31.8 g/dl (32.0-37.0) Red Cell Distribution Width 19.8 % (11.5-14.5) Platelet Count 335 10^3/UL (140-415) Mean Platelet Volume 9.4 fl (7.4-10.4) Immature Granulocytes % 1.400 % (0.001-0.429) Neutrophils % 75.9 % (39.0-77.0) Lymphocytes % 10.0 % (15.0-51.0) Monocytes % 7.5 % (0.0-11.0) Eosinophils % 5.0 % (0.0-7.0) Basophils % 0.2 % (0.0-2.0) Nucleated Red Blood Cells % 0.0 /100WBC (0.0-0.0) Immature Granulocytes # 0.120 10^3/ul (0.0-0.031) Neutrophils # 6.5 10^3/ul (1.6-7.5) Lymphocytes # 0.9 10^3/ul (0.8-2.9) Monocytes # 0.6 10^3/ul (0.3-0.9) Eosinophils # 0.4 10^3/ul (0.0-0.5) Basophils # 0.0 10^3/ul (0.0-0.1) Nucleated Red Blood Cells # 0.0 10^3/ul (0.0-0.0) Sodium Level 132 mmol/L (135-144) Potassium Level 3.6 mmol/L (3.5-5.1) Chloride Level 102 mmol/L (97-110) Carbon Dioxide Level 25 mmol/L (21-31) Anion Gap 5 (5-13) Blood Urea Nitrogen 17 mg/dl (7-20) Creatinine 0.43 mg/dl (0.61-1.24) Est Glomerular Filtrat Rate mL/min > 60 mL/min (>60) Glucose Level 125 mg/dl (70-220) Calcium Level 8.0 mg/dl (8.4-10.2) Phosphorus Level 2.4 mg/dl (2.5-4.9) Magnesium Level 2.1 mg/dl (1.7-2.5) DEBBIE GALLEGOS MD July 22, 2018 15:27
[2018-07-23] VITALS (11 sets, daily range): BP systolic 93–122; BP diastolic 51–69; PULSE 69–116; RESP 17–19
[2018-07-23] MEDS: IPRATROPIUM (NEB) 0.5 MG/2.5 ML AMP HHN SCH ×6 (01:00→20:15)
[2018-07-23] MEDS: LEVALBUTEROL (NEB) 1.25 MG/0.5 ML AMP HHN SCH ×6 (01:01→20:15)
[2018-07-23] MEDS ORDERED: LANSOPRAZOLE 30 MG CAP GTB SCH (06:00)
[2018-07-23] MEDS: DILTIAZEM 60 MG TAB GTB SCH ×3 (06:27→18:23)
--- NOTE | 2018-07-23 10:18 | CONS ---
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 Currently on Cardizem and amiodarone -Patient on IV Lasix, titrate as needed -Maintain k>4.0 and Mg>2.0, will order potassium -Antibiotics as per infectious disease Consultation Date/Type/Reason Admit Date/Time July 16, 2018 at 06:08 Initial Consult Date 07/18/18 Type of Consult Cardiology Requesting Provider: KELLY GAMEZ MD, [facility] Date/Time of Note DATE: 07/23/18 TIME: 10:17 24 HR Interval Summary Free Text/Dictation the patient with no cahnge Exam/Review of Systems Vital Signs Vitals Vital Signs Date Temp Pulse Resp B/P (MAP) Pulse Ox O2 O2 Flow FiO2 Time Delivery Rate 07/23/18 3.0 08:10 07/23/18 85 20 96 Nasal 08:10 Cannula 07/23/18 97.9 93/51 (65) 07:54 07/21/18 70 10:00 Intake and Output 07/22/18 07/22/18 07/23/18 1515:00 23:00 07:00 IntakeIntake Total 1480 ml 1450 ml OutputOutput Total 3200 ml 1100 ml BalanceBalance -1720 ml 350 ml Labs Result Diagram: 07/22/1820 07/22/18 06 Medications Medications Current Medications Vancomycin HCl (Vanco Iv Per Pharmacy) VANCOMYCIN PER PHARMACY PER PROTOCOL XX ; Start 07/16/18 at 10:30 Meropenem/Sodium Chloride 50 ml @ 100 mls/hr Q12 IVPB Last administered on 07/22/18at 21:18; Admin Dose 100 MLS/HR; Start 07/16/18 at 11:30 Vancomycin/Sodium Chloride 250 ml @ 125 mls/hr Q12H IVPB Last administered on 07/22/18at 23:50; Admin Dose 125 MLS/HR; Start 07/16/18 at 12:00 IV Flush (NS 3 ml) 3 ml PER PROTOCOL IV ; Start 07/16/18 at 11:30 Ondansetron HCl (Zofran Inj) 4 mg Q6H PRN IV NAUSEA/VOMITING; Start 07/16/18 at 11:30 Morphine Sulfate (morphine) 2 mg Q4H PRN IV .SEVERE PAIN 7-10 Last administered on 07/20/18 16:56; Admin Dose 2 MG; Start 07/16/18 at 11:30 Miscellaneous Information (Pending Santyl Order For Wound Care) This patient dugan... PRN PRN XX WOUND CARE; Start 07/16/18 at 13:00 Diltiazem HCl (Cardizem) 60 mg Q6 GTB Last administered on 07/23/18 06:27; Admin Dose 60 MG; Start 07/18/18 at 15:30 Metoprolol Tartrate (Lopressor) 5 mg Q1H PRN IV heart rate over 120 Last administered on 07/20/18 15:58; Admin Dose 5 MG; Start 07/18/18 at 14:30 Collagenase (Santyl) 1 applic DAILY TOP Last administered on 07/22/18 09:07; Admin Dose 1 APPLIC; Start 07/18/18 at 20:00 Acetaminophen (Tylenol Liquid) 650 mg Q4H PRN NGT MILD PAIN(1-3)OR ELEVATED TEMP Last administered on 07/20/18 00:27; Admin Dose 650 MG; Start 07/19/18 at 09:30 Amiodarone HCl (Cordarone) 200 mg BID NGT Last administered on 07/22/18 21:18; Admin Dose 200 MG; Start 07/19/18 at 12:30 Sodium Hypochlorite (Dakins Diluted (40)) 1 applic DAILY TP Last administered on 07/22/18 09:08; Admin Dose 1 APPLIC; Start 07/20/18 at 09:00 Levalbuterol (Xopenex Neb) 1.25 mg Q4H RESP THERAPY HHN Last administered on 07/23/18 08:09; Admin Dose 1.25 MG; Start 07/19/18 at 22:30 Ipratropium [place] (Atrovent 0.02% (Neb)) 0.5 mg Q4H RESP THERAPY HHN Last administered on 07/23/18 08:09; Admin Dose 0.5 MG; Start 07/19/18 at 22:30 Diltiazem HCl (Cardizem Iv) 10 mg Q1H PRN IV ELEVATED HEART RATE; Start 07/20/18 at 16:30 Furosemide (Lasix) 40 mg DAILY IV Last administered on 07/22/18at 09:06; Admin Dose 40 MG; Start 07/21/18 at 12:00 Lactobacillus Acidophilus (Florajen3 Capsule) 1 each AM PO Last administered on 07/22/18at 09:06; Admin Dose 1 EACH; Start 07/22/18 at 09:00 Lansoprazole (Prevacid) 30 mg DAILY@06 GTB Last administered on 07/23/18at 06:26; Admin Dose 30 MG; Start 07/23/18 at 06:00 SAMANTA DUFFY MD Jul 23, 2018 10:18
[2018-07-23] MEDS: MEROPENEM 1 GM/50ML(PMX) 50 ML IVPB SCH ×2 (10:32→21:12)
[2018-07-23] MEDS: L ACIDOPHIL/B LACTIS/B LONGUM CAPSULE PO SCH (10:33)
[2018-07-23] MEDS: COLLAGENASE 5 GM (UD JAR) TOP SCH (10:33)
[2018-07-23] MEDS: AMIODARONE 200 MG TAB NGT SCH ×2 (10:33→21:18)
[2018-07-23] MEDS: DAKINS 0.0125%(1/40) 473 ML SOLUTION TP SCH (10:35)
[2018-07-23] MEDS: FUROSEMIDE 40 MG INJ IV SCH (10:35)
[2018-07-23] MEDS: BALSAM PERU/CASTOR OIL 60 GM TUBE TOP SCH (10:35)
[2018-07-23] MEDS: VANCOMYCIN 750 MG (PMX) 250 ML IVPB SCH (13:23)
--- NOTE | 2018-07-23 13:58 | CONS ---
Consultation Date/Type/Reason Admit Date/Time July 16, 2018 at 06:08 Initial Consult Date SUBJECTIVE: Patient is sleepy and lethargic, Afebrile and looks comfortable. VS: stable T: 98.4 LABS: Reviewed.. Indwelling: NG tube, Jimenez, left upper extremity PICC line Antimicrobials: Vancomycin, meropenem Chest x-ray this morning revealed multilobar infiltrates with small bilateral pleural effusions. Physical examination: GEN: Fragile elderly man, who is in no distress. HENT: Head atraumatic normocephalic; neck is supple PULM: chest rise symmetrical breath sounds diminished bases. Heart: S1-S2. Abdomen: soft, bowel sounds present. Extremities without cyanosis Assessment: 1. Sepsis 1. 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 Multiple intracranial hemorrhages 4. Healthcare associated pneumonia, possible ongoing aspiration 5. Acute on chronic encephalopathy 6. Cachexia 7. Atrial fibrillation status post RVR Plan: Patient is stable. Will continue current abx,. Aspiration precautions. Continue IV vancomycin till 08/27. Requesting Provider: KELLY GAMEZ MD, [facility] Date/Time of Note DATE: 07/23/18 TIME: 13:55 Exam/Review of Systems Exam Vitals Vital Signs Date Temp Pulse Resp B/P (MAP) Pulse Ox O2 O2 Flow FiO2 Time Delivery Rate 07/23/18 92 12:01 07/23/18 98.4 18 100/64 96 11:39 (76) 07/23/18 3.0 08:10 07/23/18 Nasal 08:10 Cannula 07/21/18 70 10:00 Intake and Output 07/22/18 07/22/18 07/23/18 1515:00 23:00 07:00 IntakeIntake Total 1480 ml 1450 ml OutputOutput Total 3200 ml 1100 ml BalanceBalance -1720 ml 350 ml Results Result Diagram: 07/22/18 0620 07/22/18 0620 Medications Medication Current Medications Vancomycin HCl (Vanco Iv Per Pharmacy) VANCOMYCIN PER PHARMACY PER PROTOCOL XX ; Start 07/16/18 at 10:30 Meropenem/Sodium Chloride 50 ml @ 100 mls/hr Q12 IVPB Last administered on 07/23/18at 10:32; Admin Dose 100 MLS/HR; Start 07/16/18 at 11:30 Vancomycin/Sodium Chloride 250 ml @ 125 mls/hr Q12H IVPB Last administered on 07/23/18 13:23; Admin Dose 125 MLS/HR; Start 07/16/18 at 12:00 IV Flush (NS 3 ml) 3 ml PER PROTOCOL IV ; Start 07/16/18 at 11:30 Ondansetron HCl (Zofran Inj) 4 mg Q6H PRN IV NAUSEA/VOMITING; Start 07/16/18 at 11:30 Morphine Sulfate (morphine) 2 mg Q4H PRN IV .SEVERE PAIN 7-10 Last administered on 07/20/18 16:56; Admin Dose 2 MG; Start 07/16/18 at 11:30 Miscellaneous Information (Pending Santyl Order For Wound Care) This patient dugan... PRN PRN XX WOUND CARE; Start 07/16/18 at 13:00 Diltiazem HCl (Cardizem) 60 mg Q6 GTB Last administered on 07/23/18 13:24; Admin Dose 60 MG; Start 07/18/18 at 15:30 Metoprolol Tartrate (Lopressor) 5 mg Q1H PRN IV heart rate over 120 Last administered on 07/20/18 15:58; Admin Dose 5 MG; Start 07/18/18 at 14:30 Collagenase (Santyl) 1 applic DAILY TOP Last administered on 07/23/18 10:33; Admin Dose 1 APPLIC; Start 07/18/18 at 20:00 Acetaminophen (Tylenol Liquid) 650 mg Q4H PRN NGT MILD PAIN(1-3)OR ELEVATED TEMP Last administered on 07/20/18 00:27; Admin Dose 650 MG; Start 07/19/18 at 09:30 Amiodarone HCl (Cordarone) 200 mg BID NGT Last administered on 07/23/18 10:33; Admin Dose 200 MG; Start 07/19/18 at 12:30 Sodium Hypochlorite (Dakins Diluted ()) 1 applic DAILY TP Last administered on 07/23/18 10:35; Admin Dose 1 APPLIC; Start 07/20/18 at 09:00 Levalbuterol (Xopenex Neb) 1.25 mg Q4H RESP THERAPY HHN Last administered on 07/23/18 08:09; Admin Dose 1.25 MG; Start 07/19/18 at 22:30 Ipratropium [place] (Atrovent 0.02% (Neb)) 0.5 mg Q4H RESP THERAPY HHN Last administered on 07/23/18at 08:09; Admin Dose 0.5 MG; Start 07/19/18 at 22:30 Diltiazem HCl (Cardizem Iv) 10 mg Q1H PRN IV ELEVATED HEART RATE; Start 07/20/18 at 16:30 Furosemide (Lasix) 40 mg DAILY IV Last administered on 07/23/18at 10:35; Admin Dose 40 MG; Start 07/21/18 at 12:00 Lactobacillus Acidophilus (Florajen3 Capsule) 1 each AM PO Last administered on 07/23/18at 10:33; Admin Dose 1 EACH; Start 07/22/18 at 09:00 Lansoprazole (Prevacid) 30 mg DAILY@06 GTB Last administered on 07/23/18at 06:26; Admin Dose 30 MG; Start 07/23/18 at 06:00 CHRIS WILLIS Jul 23, 2018 13:58
--- NOTE | 2018-07-23 15:34 | PN ---
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 CT head showed multifocal cerebral infarcts. He was seen by neurology and neurosurgeon with no recommendation for furhter intervention. He was continued on vancomcyin for endocarditis. He developed pneumonia and pulmonary edema for which he was given antibiotics and lasix. He is now being transfered to [facility] for further optimization. Endocarditis: - Continue vancomycin A Fib: - Diltiazem per cardiology CHF: - Lasix Pneumonia: - merrem Transfer to [facility] Needs bioethics to discuss goals of care Result Diagram: 07/22/18 0620 07/22/18 0620 Subjective 24 Hr Interval Summary Free Text/Dictation Stable Breathing comfortably Exam/Review of Systems Exam Vitals Vital Signs Date Temp Pulse Resp B/P (MAP) Pulse Ox O2 O2 Flow FiO2 Time Delivery Rate 07/23/18 92 12:01 07/23/18 98.4 18 100/64 96 11:39 (76) 07/23/18 Nasal 3.0 09:00 Cannula 07/21/18 70 10:00 Intake and Output 07/22/18 07/22/18 07/23/18 1515:00 23:00 07:00 IntakeIntake Total 1480 ml 1450 ml OutputOutput Total 3200 ml 1100 ml BalanceBalance -1720 ml 350 ml Medications Medication Current Medications Vancomycin HCl (Vanco Iv Per Pharmacy) VANCOMYCIN PER PHARMACY PER PROTOCOL XX ; Start 07/16/18 at 10:30 Meropenem/Sodium Chloride 50 ml @ 100 mls/hr Q12 IVPB Last administered on 07/23/18at 10:32; Admin Dose 100 MLS/HR; Start 07/16/18 at 11:30 Vancomycin/Sodium Chloride 250 ml @ 125 mls/hr Q12H IVPB Last administered on 07/23/18at 13:23; Admin Dose 125 MLS/HR; Start 07/16/18 at 12:00 IV Flush (NS 3 ml) 3 ml PER PROTOCOL IV ; Start 07/16/18 at 11:30 Ondansetron HCl (Zofran Inj) 4 mg Q6H PRN IV NAUSEA/VOMITING; Start 07/16/18 at 11:30 Morphine Sulfate (morphine) 2 mg Q4H PRN IV .SEVERE PAIN 7-10 Last administered on 07/20/18 16:56; Admin Dose 2 MG; Start 07/16/18 at 11:30 Miscellaneous Information (Pending Santyl Order For Wound Care) This patient dugan... PRN PRN XX WOUND CARE; Start 07/16/18 at 13:00 Diltiazem HCl (Cardizem) 60 mg Q6 GTB Last administered on 07/23/18 13:24; Ad min Dose 60 MG; Start 07/18/18 at 15:30 Metoprolol Tartrate (Lopressor) 5 mg Q1H PRN IV heart rate over 120 Last administered on 07/20/18 15:58; Admin Dose 5 MG; Start 07/18/18 at 14:30 Collagenase (Santyl) 1 applic DAILY TOP Last administered on 07/23/18 10:33; Admin Dose 1 APPLIC; Start 07/18/18 at 20:00 Acetaminophen (Tylenol Liquid) 650 mg Q4H PRN NGT MILD PAIN(1-3)OR ELEVATED TEMP Last administered on 07/20/18 00:27; Admin Dose 650 MG; Start 07/19/18 at 09:30 Amiodarone HCl (Cordarone) 200 mg BID NGT Last administered on 07/23/18 10:33; Admin Dose 200 MG; Start 07/19/18 at 12:30 Sodium Hypochlorite (Dakins Diluted (40)) 1 applic DAILY TP Last administered on 07/23/18 10:35; Admin Dose 1 APPLIC; Start 07/20/18 at 09:00 Levalbuterol (Xopenex Neb) 1.25 mg Q4H RESP THERAPY HHN Last administered on 07/23/18 08:09; Admin Dose 1.25 MG; Start 07/19/18 at 22:30 Ipratropium [place] (Atrovent 0.02% (Neb)) 0.5 mg Q4H RESP THERAPY HHN Last administered on 07/23/18at 08:09; Admin Dose 0.5 MG; Start 07/19/18 at 22:30 Diltiazem HCl (Cardizem Iv) 10 mg Q1H PRN IV ELEVATED HEART RATE; Start 07/20/18 at 16:30 Furosemide (Lasix) 40 mg DAILY IV Last administered on 07/23/18at 10:35; Admin Dose 40 MG; Start 07/21/18 at 12:00 Lactobacillus Acidophilus (Florajen3 Capsule) 1 each AM PO Last administered on 07/23/18at 10:33; Admin Dose 1 EACH; Start 07/22/18 at 09:00 Lansoprazole (Prevacid) 30 mg DAILY@06 GTB Last administered on 07/23/18at 06:26; Admin Dose 30 MG; Start 07/23/18 at 06:00 DEBBIE GALLEGOS MD Jul 23, 2018 15:34
--- NOTE | 2018-07-23 16:15 | CONS ---
Consult Date/Type/Reason Admit Date/Time July 16, 2018 at 06:08 Initial Consult Date 07/18/18 Type of Consultation: Pulm Requesting Provider: KELLY GAMEZ MD, [facility] Date/Time of Note DATE: 07/23/18 TIME: 16:13 Subjective No events overnight. Objective Vitals Vital Signs Date Temp Pulse Resp B/P (MAP) Pulse Ox O2 O2 Flow FiO2 Time Delivery Rate 07/23/18 80 16:01 07/23/18 97.9 18 103/69 97 15:34 (80) 07/23/18 Nasal 3.0 09:00 Cannula 07/21/18 70 10:00 Intake and Output 07/22/18 07/22/18 07/23/18 1515:00 23:00 07:00 IntakeIntake Total 1480 ml 1450 ml OutputOutput Total 3200 ml 1100 ml BalanceBalance -1720 ml 350 ml Exam NECK: Supple. No JVD or lymphadenopathy. CARDIAC EXAM: S1, S2. Early systolic ejection murmur. CHEST: Diminished air entry bilaterally ABDOMEN: Soft, nontender. No guarding or rebound. EXTREMITIES: No cyanosis, clubbing or edema. NEUROLOGIC: Generalized weakness. Results/Medications Result Diagram: 07/22/1861907/22/18619 Home Meds Active Scripts Lactobacillus Rhamnosus GG (Culturelle) 1 Each Capsule, 1 CAP PO BID for 30 Days, CAP Prov:PERLA NARANJO MD 03/19/18 Acetaminophen* (Tylenol*) 325 Mg Tablet, 650 MG PO Q6H PRN for PAIN LEVEL 1-3 OR FEVER for 30 Days, TAB Prov:PERLA NARANJO MD 03/19/18 Diltiazem Hcl* (Cardizem*) 30 Mg Tablet, 30 MG PO TID for 30 Days, TAB Prov:PERLA NARANJO MD 03/19/18 Reported Medications Zinc Sulfate* (Zinc Sulfate*) 220 Mg Tablet, 220 MG PO DAILY, TAB 06/30/18 Ascorbic Acid (Vitamin C) 500 Mg Tab, 500 MG PO DAILY, TAB 06/30/18 Mirtazapine* (Remeron*) 15 Mg Tablet, 15 MG PO HS, TAB 06/30/18 Pantoprazole* (Protonix*) 40 Mg Tablet.dr, 40 MG PO DAILY, TAB 06/30/18 Multivitamins* (Theragran*) 1 Tab Tab, 1 TAB PO DAILY, TAB 06/30/18 Megestrol Acetate* (Megestrol Acetate*) 400 Mg/10 Ml Susp, 400 MG PO BID, ML 06/30/18 Digoxin* (Digitek*) 250 Mcg Tablet, 0.25 MG PO DAILY, TAB 06/30/18 Benztropine Mesylate* (Benztropine Mesylate*) 1 Mg Tablet, 1 MG PO DAILY, TAB 03/13/18 Medications Current Medications Vancomycin HCl (Vanco Iv Per Pharmacy) VANCOMYCIN PER PHARMACY PER PROTOCOL XX ; Start 07/16/18 at 10:30 Meropenem/Sodium Chloride 50 ml @ 100 mls/hr Q12 IVPB Last administered on 07/23/18at 10:32; Admin Dose 100 MLS/HR; Start 07/16/18 at 11:30 Vancomycin/Sodium Chloride 250 ml @ 125 mls/hr Q12H IVPB Last administered on 07/23/18at 13:23; Admin Dose 125 MLS/HR; Start 07/16/18 at 12:00 IV Flush (NS 3 ml) 3 ml PER PROTOCOL IV ; Start 07/16/18 at 11:30 Ondansetron HCl (Zofran Inj) 4 mg Q6H PRN IV NAUSEA/VOMITING; Start 07/16/18 at 11:30 Morphine Sulfate (morphine) 2 mg Q4H PRN IV .SEVERE PAIN 7-10 Last administered on 07/20/18at 16:56; Admin Dose 2 MG; Start 07/16/18 at 11:30 Miscellaneous Information (Pending Santyl Order For Wound Care) This patient dugan... PRN PRN XX WOUND CARE; Start 07/16/18 at 13:00 Diltiazem HCl (Cardizem) 60 mg Q6 GTB Last administered on 07/23/18 13:24; Admin Dose 60 MG; Start 07/18/18 at 15:30 Metoprolol Tartrate (Lopressor) 5 mg Q1H PRN IV heart rate over 120 Last administered on 07/20/18at 15:58; Admin Dose 5 MG; Start 07/18/18 at 14:30 Collagenase (Santyl) 1 applic DAILY TOP Last administered on 07/23/18at 10:33; Admin Dose 1 APPLIC; Start 07/18/18 at 20:00 Acetaminophen (Tylenol Liquid) 650 mg Q4H PRN NGT MILD PAIN(1-3)OR ELEVATED TEMP Last administered on 07/20/18 00:27; Admin Dose 650 MG; Start 07/19/18 at 09:30 Amiodarone HCl (Cordarone) 200 mg BID NGT Last administered on 07/23/18 10:33; Admin Dose 200 MG; Start 07/19/18 at 12:30 Sodium Hypochlorite (Dakins Diluted ()) 1 applic DAILY TP Last administered on 07/23/18 10:35; Admin Dose 1 APPLIC; Start 07/20/18 at 09:00 Levalbuterol (Xopenex Neb) 1.25 mg Q4H RESP THERAPY HHN Last administered on 07/23/18 08:09; Admin Dose 1.25 MG; Start 07/19/18 at 22:30 Ipratropium [place] (Atrovent 0.02% (Neb)) 0.5 mg Q4H RESP THERAPY HHN Last administered on 07/23/18 08:09; Admin Dose 0.5 MG; Start 07/19/18 at 22:30 Diltiazem HCl (Cardizem Iv) 10 mg Q1H PRN IV ELEVATED HEART RATE; Start 07/20/18 at 16:30 Furosemide (Lasix) 40 mg DAILY IV Last administered on 07/23/18 10:35; Admin Dose 40 MG; Start 07/21/18 at 12:00 Lactobacillus Acidophilus (Florajen3 Capsule) 1 each AM PO Last administered on 07/23/18 10:33; Admin Dose 1 EACH; Start 07/22/18 at 09:00 Lansoprazole (Prevacid) 30 mg DAILY@06 GTB Last administered on 07/23/18 06:26; Admin Dose 30 MG; Start 07/23/18 at 06:00 Assessment/Plan Assessment/Plan (Daily) IMP: 1. Hypoxemic Resp Insufficienc--2/2 pneumonia and volume overload 2. Hemorrhagic conversion of possible septic emboli. 3. 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 Afib 5. Endocarditis mitral valve disease 6. Worsening hypoxemic respiratory failure likely secondary to volume overload RECS: 1. Continue to keep I <O's 2. Aspiration precautions 3. Rate control KAMANGAR,SHON MD Jul 23, 2018 16:15
== END 2018-07-23 23:17 | DRG 871 ==
LOC: ICU 06:08 → TEL 07-19 15:20
PROVIDERS: ADMIT Internal Medicine; ATTEND Internal Medicine
PROC: 30233N1 Transfusion of Nonautologous Red Blood Cells into Peripheral Vein, Percutaneous Approach (ICD-10-PCS; principal; 2018-07-18)
DX: A41.9 Sepsis, unspecified organism (principal); I61.9 Nontraumatic intracerebral hemorrhage, unspecified; L89.153 Pressure ulcer of sacral region, stage 3; J18.9 Pneumonia, unspecified organism; E43 Unspecified severe protein-calorie malnutrition; E87.1 Hypo-osmolality and hyponatremia; G93.40 Encephalopathy, unspecified; N39.0 Urinary tract infection, site not specified; Z68.1 Body mass index [BMI] 19.9 or less, adult; R64 Cachexia; G91.2 (Idiopathic) normal pressure hydrocephalus; I76 Septic arterial embolism; L89.100 Pressure ulcer of unspecified part of back, unstageable; L89.021 Pressure ulcer of left elbow, stage 1; L89.011 Pressure ulcer of right elbow, stage 1; L89.621 Pressure ulcer of left heel, stage 1; L89.611 Pressure ulcer of right heel, stage 1; I34.8 Other nonrheumatic mitral valve disorders; F01.50 Vascular dementia, unspecified severity, without behavioral disturbance, psychotic disturbance, mood disturbance, and anxiety; D69.6 Thrombocytopenia, unspecified; F20.9 Schizophrenia, unspecified; R53.81 Other malaise; D63.8 Anemia in other chronic diseases classified elsewhere; B95.62 Methicillin resistant Staphylococcus aureus infection as the cause of diseases classified elsewhere; I48.91 Unspecified atrial fibrillation; R13.10 Dysphagia, unspecified; I66.9 Occlusion and stenosis of unspecified cerebral artery
CPT/HCPCS: 36430; 36600; 70450; 70496; 70498; 70551; 71045; 80048; 80061; 80202; 82803; 83735; 84100; 85025; 85610; 85651; 85730; 86592; 86850; 86900; 86901; 86920; 87075; 87081; 92610; 94640; 94660; 94664; A4310; C9113; J1940; J2185; J2270; J2997; J3370; J3480; P9016; Q9967

== ENCOUNTER 2018-07-25 12:48 | Day surgery (SDC) | payer OTHER ==
[~2018-07-25] VITALS: Ht 182.9 cm; Wt 63.1 kg
[2018-07-25] VITALS (7 sets, daily range): BP systolic 108–125; BP diastolic 58–71; PULSE 100–122; RESP 18–23
[2018-07-25] MEDS ORDERED: LANS30CA PO (12:58)
[2018-07-25] MEDS ORDERED: L.AC460C PO (12:58)
[2018-07-25] MEDS ORDERED: MERO1VIA IV (12:58)
[2018-07-25] MEDS ORDERED: BALS60OI TOP (12:58)
[2018-07-25] MEDS ORDERED: CARSR60 PO (12:58)
[2018-07-25] MEDS ORDERED: AMIO200T4 NGT (12:58)
[2018-07-25] MEDS ORDERED: [UNRECOGNIZED DRUG - CODE] IH (12:58)
[2018-07-25] MEDS ORDERED: LEVA15HF6 INH (12:58)
[2018-07-25] MEDS ORDERED: SAN30GM TOP (12:58)
[2018-07-25] MEDS ORDERED: VANC1VIA16 IV (12:58)
--- NOTE | 2018-07-25 13:10 | PREAC ---
Date/Time of Note Date/Time of Note DATE: 07/25/18 TIME: 13:07 Anesthesia Eval and Record Evaluation Time Pre-Procedure Interview DATE: 07/25/18 TIME: 13:07 Age 72 Sex male NPO: 8 hrs Preoperative diagnosis dypphagia+ Planned procedure peg placement Past Medical History Past Medical History: Includes Cardio: Arrythmia Pulm: Other (cerebral hemohrrage) Surgery & Anesthesia Issues No known issue Meds Anticoagulation: No Beta Favio within 24 hr: No Reason Beta Favio not given: Pt. not on B-Favio Reported Medications Vancomycin Hcl (Vancocin) 1 Gm Soln, 750 MG IV, VIAL 07/25/18 Meropenem (Merrem) 1 Gm Vial, 1 GM IV, VIAL 07/25/18 Levalbuterol* (Xopenex* HFA) 15 Gm Inha, 2 PUFFS INH Q4H PRN for WHEEZING AND SOB, INHALER 07/25/18 Lansoprazole* (Lansoprazole*) 30 Mg Capsule.dr, 30 MG PO DAILY, CAP 07/25/18 L Acidophil/B Lactis/B Longum (FLORAJEN3 CAPSULE) 460 Mg Capsule, 460 MG PO, CAP 07/25/18 Ipratropium [place] neb (Ipratropium [place] neb) 0.2 Mg/Ml Solution, 0.5 MG IH Q6H PRN for SHORTNESS OF BREATH, EA 07/25/18 Diltiazem Hcl* (Cardizem SR*) 60 Mg Capsr, 60 MG PO Q12, #60 CAP 07/25/18 Collagenase* (Santyl*) 30 Gm Oint..gm., 1 APPLIC TOP DAILY, #1 TUB 07/25/18 Balsam [place] Oil (Venelex Ointment) 60 Gm Oint..gm., 1 APPLIC TOP BID, #1 TUB 07/25/18 Amiodarone Hcl* (Amiodarone Hcl*) 200 Mg Tablet, 200 MG NGT BID, #60 TAB 07/25/18 Discontinued Reported Medications Zinc Sulfate* (Zinc Sulfate*) 220 Mg Tablet, 220 MG PO DAILY, TAB 06/30/18 Ascorbic Acid (Vitamin C) 500 Mg Tab, 500 MG PO DAILY, TAB 06/30/18 Mirtazapine* (Remeron*) 15 Mg Tablet, 15 MG PO HS, TAB 06/30/18 Pantoprazole* (Protonix*) 40 Mg Tablet.dr, 40 MG PO DAILY, TAB 06/30/18 Multivitamins* (Theragran*) 1 Tab Tab, 1 TAB PO DAILY, TAB 06/30/18 Megestrol Acetate* (Megestrol Acetate*) 400 Mg/10 Ml Susp, 400 MG PO BID, ML 06/30/18 Digoxin* (Digitek*) 250 Mcg Tablet, 0.25 MG PO DAILY, TAB 06/30/18 Benztropine Mesylate* (Benztropine Mesylate*) 1 Mg Tablet, 1 MG PO DAILY, TAB 03/13/18 Discontinued Scripts Lactobacillus Rhamnosus GG (Culturelle) 1 Each Capsule, 1 CAP PO BID for 30 Days, CAP Prov:PERLA NARANJO MD 03/19/18 Acetaminophen* (Tylenol*) 325 Mg Tablet, 650 MG PO Q6H PRN for PAIN LEVEL 1-3 OR FEVER for 30 Days, TAB Prov:PERLA NARANJO MD 03/19/18 Diltiazem Hcl* (Cardizem*) 30 Mg Tablet, 30 MG PO TID for 30 Days, TAB Prov:PERLA NARANJO MD 03/19/18 Meds reviewed: Yes Allergies Coded Allergies: Penicillins (Verified Allergy, Unknown, 07/25/18) Allergies Reviewed: Yes Labs/Studies Labs Reviewed: Reviewed by anesthesiologist test: N/A Studies: ECG (afib), CXR (multifocal pneumonia) Pre-procedure Exam Airway: Adequate mouth opening Mallampati: Mallampati I Teeth: Abnormal Lung: Normal Heart: Normal ASA Physical Status ASA physical status: 3 Emergency: None Planned Anesthetic General/MAC: MAC Pre-operative Attestations Prior to commencing anesthesia and surgery, the patient was re-evaluated, there was verification of: *The patient's identity *The results of appropriate recent lab work and preoperative vital signs *The above evaluation not changing prior to induction *Anesthetic plan, risk benefits, alternative and complications discussed with patient/family; questions answered; patient/family understands, accepts and wishes to proceed. CHARO LUIS MD Jul 25, 2018 13:10
[2018-07-25] MEDS ORDERED: CEFAZOLIN 1 GM/50 ML (PMX) 50 ML IVPB ONE (13:12)
[2018-07-25] MEDS ORDERED: PROPOFOL 20 ML ONE (13:12)
--- NOTE | 2018-07-25 18:13 | PAC ---
Date/Time of Note Date/Time of Note DATE: 07/25/18 TIME: 18:13 Post-Anesthesia Notes Post-Anesthesia Note Last documented vital signs Vital Signs Date Temp Pulse Resp B/P (MAP) Pulse Ox O2 O2 Flow FiO2 Time Delivery Rate 07/25/18 98.3 106 23 122/69 98 Nasal 2.0 14:15 (86) Cannula 07/25/18 98.3 13:57 Activity: WNL Respiratory function: WNL Cardiovascular function: WNL Mental status: Baseline Pain reasonably controlled: Yes Hydration appropriate: Yes Nausea/Vomiting absent: No CHARO LUIS MD Jul 25, 2018 18:13
--- NOTE | 2018-07-25 19:35 | GILP ---
DATE OF PROCEDURE: PROCEDURE PERFORMED: Percutaneous endoscopic gastrostomy. INDICATION: A 72-year-old male undergoing this procedure for dysphagia and aspiration pneumonia. Th e risk of the procedure, related and unrelated complications, was understood by 2 physicians, ___ _ and Dr. Cottrell and also by me and we all understood the complication and the indication for the pro cedure and agreed to proceed with it. There was no family member available to sign the consent and g iven the complication of the NG tube and the patient capable of pulling it out, in the best of the jane wilkerson's interest for long-term enteral nutrition, we decided to proceed with the placement of G-tube. DESCRIPTION OF PROCEDURE: The patient was brought to the GI lab and was given Ancef prior to the pro cedure. He was already on antibiotic. After optimal sedation, the scope was passed with much ease i nto the esophagus. There was a copious amount of secretions in the throat which was aspirated. The scope was advanced further down into the stomach and duodenum. No evidence of obstruction. He had a significant hiatal hernia. By transillumination and digital palpation technique, the appropriate si te was chosen onto the anterior abdominal wall. The site was sterilized with chlorhexidine solution and 2% Xylocaine instilled by safe method. A small incision was made. Through that incision, a troc ar stylus passed into the stomach. The stylet was removed. Through the hollow tip of the catheter, an insertion wire was passed and the entire procedure was completed by modified Ponsky technique. Th e patient was rescoped. The position of the internal bumper confirmed. The external bumper was secu red. He tolerated the procedure very well. IMPRESSION: Successful placement of G-tube done. PLAN: Resume feeding after 6 hours. Abdominal binder all the time. Dictated By: MAU MARSHALL/NAYA Conf#: [id number] DID#: [id number]
== END 2018-07-25 15:27 | disposition home or self-care (01) ==
LOC: GIL 12:48
PROVIDERS: ATTEND Internal Medicine Gastroenterology
DX: J69.0 Pneumonitis due to inhalation of food and vomit (principal); R13.10 Dysphagia, unspecified
CPT/HCPCS: 43246; J0690

== ENCOUNTER 2018-08-18 12:13 | Day surgery (SDC) | payer OTHER ==
[2018-08-18] VITALS (9 sets, daily range): BP systolic 94–111; BP diastolic 53–65; PULSE 102–111; RESP 28–34
--- NOTE | 2018-08-18 11:37 | HPN ---
Date/Time of Note Date/Time of Note DATE: 08/18/18 TIME: 11:36 Interval H&P Admission Note Pt. seen H&P reviewed: No system changes MAU PEDROZA MD Aug 18, 2018 11:37
--- NOTE | 2018-08-18 11:46 | PREAC ---
Date/Time of Note Date/Time of Note DATE: 08/18/18 TIME: 11:42 Anesthesia Eval and Record Evaluation Time Pre-Procedure Interview DATE: 08/18/18 TIME: 11:42 Age 72 Sex male NPO: 8 hrs Preoperative diagnosis GI bleed Planned procedure colonoscopy Past Medical History Past Medical History: Includes (schizophrenia; pt unresponsive) Cardio: Arrythmia (AFIB), Other (endocarditis MV) Heme: Anemia Surgery & Anesthesia Issues No known issue Meds Anticoagulation: No Beta Favio within 24 hr: Yes Reported Medications Vancomycin Hcl (Vancocin) 1 Gm Soln, 750 MG IV, VIAL 07/25/18 Meropenem (Merrem) 1 Gm Vial, 1 GM IV, VIAL 07/25/18 Levalbuterol* (Xopenex* HFA) 15 Gm Inha, 2 PUFFS INH Q4H PRN for WHEEZING AND SOB, INHALER 07/25/18 Lansoprazole* (Lansoprazole*) 30 Mg Capsule.dr, 30 MG PO DAILY, CAP 07/25/18 L Acidophil/B Lactis/B Longum (FLORAJEN3 CAPSULE) 460 Mg Capsule, 460 MG PO, CAP 07/25/18 Ipratropium [place] neb (Ipratropium [place] neb) 0.2 Mg/Ml Solution, 0.5 MG IH Q6H PRN for SHORTNESS OF BREATH, EA 07/25/18 Diltiazem Hcl* (Cardizem SR*) 60 Mg Capsr, 60 MG PO Q12, #60 CAP 07/25/18 Collagenase* (Santyl*) 30 Gm Oint..gm., 1 APPLIC TOP DAILY, #1 TUB 07/25/18 Balsam [place] Oil (Venelex Ointment) 60 Gm Oint..gm., 1 APPLIC TOP BID, #1 TUB 07/25/18 Amiodarone Hcl* (Amiodarone Hcl*) 200 Mg Tablet, 200 MG NGT BID, #60 TAB 07/25/18 Meds reviewed: Yes Allergies Coded Allergies: Penicillins (Verified Allergy, Unknown, 08/18/18) Allergies Reviewed: Yes Labs/Studies Labs Reviewed: Reviewed by anesthesiologist test: N/A Studies: ECG (AFIB), CXR (cardiopulmonary congestion) Pre-procedure Exam Airway: Adequate mouth opening, Adequate thyromental dist Mallampati: Mallampati III Teeth: Abnormal Lung: Normal Heart: Normal ASA Physical Status ASA physical status: 3 Emergency: E Planned Anesthetic General/MAC: MAC (Dr Bass declared the procedure an emergency; no consent obtained from pt's family;) Pre-operative Attestations Prior to commencing anesthesia and surgery, the patient was re-evaluated, there was verification of: *The patient's identity *The results of appropriate recent lab work and preoperative vital signs *The above evaluation not changing prior to induction *Anesthetic plan, risk benefits, alternative and complications discussed with p atient/family; questions answered; patient/family understands, accepts and wishes to proceed. KAYLIE PINEDA Aug 18, 2018 11:46
[~2018-08-18 12:13] MED LIST changes: -ACET325T33 PO; +ACETAMINOPHEN 500 MG TAB PO PRN; +ALBUTEROL 0.083% (NEB) 2.5 MG/3 ML AMP HHN PRN; +AMIO200T4 NGT; -ASC500 PO; +BALS60OI TOP; -BENZ1TAB7 PO; +CARSR60 PO; -DIGO250T PO; -DILT30TA30 PO; +DIPHENHYDRAMINE 50 MG INJ IV PRN; +ESMOLOL 0 ML ONE; +ETOMIDATE 20 MG INJ ONE; +FENTAnyl 50 MCG/ML VIAL IV PRN; +L.AC460C PO; +LABETALOL HCL 20MG INJ IV PRN; -LACT1CAP28 PO; +LANS30CA PO; +LEVA15HF6 INH; +LIDOCAINE 2% (SDV) 5 ML INJ ONE; -MEG40/1 PO; +MERO1VIA IV; -MIRT15TA PO; -MULTI PO; +ONDANSETRON 4 MG INJ IV PRN; -PANT40TA3 PO; +PHENYLephrine (100 MCG/ML) 10ML SYG ONE; +PROPOFOL 20 ML ONE; +SAN30GM TOP; +VANC1VIA16 IV; -ZINC220T PO; +[UNRECOGNIZED DRUG - CODE] IH
--- NOTE | 2018-08-18 12:47 | PAC ---
Date/Time of Note Date/Time of Note DATE: 08/18/18 TIME: 12:46 Post-Anesthesia Notes Post-Anesthesia Note Last documented vital signs @1235 101/53; 100% sat; 89-110 HR; 16 rr; 98 temp Activity: WNL Respiratory function: WNL Cardiovascular function: WNL Mental status: Baseline Pain reasonably controlled: Yes Hydration appropriate: Yes Nausea/Vomiting absent: Yes KAYLIE PINEDA Aug 18, 2018 12:47
== END 2018-08-18 12:20 | disposition home or self-care (01) ==
LOC: GIL 12:13
PROVIDERS: ATTEND Internal Medicine Gastroenterology
DX: K92.2 Gastrointestinal hemorrhage, unspecified (principal); I48.2 Chronic atrial fibrillation
CPT/HCPCS: 45378; A4310; J2370

== ENCOUNTER 2018-08-27 18:00 | Inpatient (IN) | payer MEDICARE, OTHER ==
[~2018-08-27] VITALS: Ht 182.9 cm; Wt 60.0 kg
[~2018-08-27 18:00] MED LIST changes: +ACET-2047 GTB; -ACETAMINOPHEN 500 MG TAB PO PRN; -ALBUTEROL 0.083% (NEB) 2.5 MG/3 ML AMP HHN PRN; +AMIO200T4 GTB; +ASC500 GTB; +CARSR60 GTB; -DIPHENHYDRAMINE 50 MG INJ IV PRN; -ESMOLOL 0 ML ONE; -ETOMIDATE 20 MG INJ ONE; -FENTAnyl 50 MCG/ML VIAL IV PRN; -LABETALOL HCL 20MG INJ IV PRN; +LANS30CA GTB; -LIDOCAINE 2% (SDV) 5 ML INJ ONE; +MUCO4 NEB; -ONDANSETRON 4 MG INJ IV PRN; -PHENYLephrine (100 MCG/ML) 10ML SYG ONE; -PROPOFOL 20 ML ONE; +SODI473S5 TP; +TIGE50VI IV; +ZINC220C5 GTB
[2018-08-27 18:24] VITALS: Ht 182.9 cm; Wt 60.0 kg
--- NOTE | 2018-08-27 18:29 | ERD ---
ER Documentation Chief Complaint Chief Complaint TACHYCARDIA AND AGITATION. HPI 72-year-old male recently discharged from [place] [facility] facility sent back from the facility as they would not accept him due to high heart rate. His heart rate was reportedly in the 130s to 140s. He has known history of atrial fibrillation on medications. Patient is unable to provide any history due to chronic encephalopathy. Otherwise history is limited. ROS Unable to obtain as the patient is not answering any questions and is altered at baseline Medications Home Meds Reported Medications Vancomycin Hcl (Vancocin) 1 Gm Soln, 750 MG IV, VIAL 07/25/18 Meropenem (Merrem) 1 Gm Vial, 1 GM IV, VIAL 07/25/18 Levalbuterol* (Xopenex* HFA) 15 Gm Inha, 2 PUFFS INH Q4H PRN for WHEEZING AND SOB, INHALER 07/25/18 Lansoprazole* (Lansoprazole*) 30 Mg Capsule.dr, 30 MG PO DAILY, CAP 07/25/18 L Acidophil/B Lactis/B Longum (FLORAJEN3 CAPSULE) 460 Mg Capsule, 460 MG PO, CAP 07/25/18 Ipratropium [place] neb (Ipratropium [place] neb) 0.2 Mg/Ml Solution, 0.5 MG IH Q6H PRN for SHORTNESS OF BREATH, EA 07/25/18 Diltiazem Hcl* (Cardizem SR*) 60 Mg Capsr, 60 MG PO Q12, #60 CAP 07/25/18 Collagenase* (Santyl*) 30 Gm Oint..gm., 1 APPLIC TOP DAILY, #1 TUB 07/25/18 Balsam [place] Oil (Venelex Ointment) 60 Gm Oint..gm., 1 APPLIC TOP BID, #1 TUB 07/25/18 Amiodarone Hcl* (Amiodarone Hcl*) 200 Mg Tablet, 200 MG NGT BID, #60 TAB 07/25/18 Allergies Allergies: Coded Allergies: Penicillins (Verified Allergy, Unknown, 08/18/18) PMhx/Soc Medical and Surgical Hx: Unable to obtain Anesthesia Reaction: No Hx Neurological Disorder: Yes (NEUROCEREBRAL HEMORRHAGE) Hx Respiratory Disorders: No Hx Cardiac Disorders: Yes (MITRAL VALVE ENDOCARDITIS; AFIB) Hx Psychiatric Problems: Yes (SCHIZOPHRENIA) Hx Miscellaneous Medical Probl: Yes (MRSA) FmHx Unable to obtain Physical Exam Vitals Vital Signs Date Temp Pulse Resp B/P (MAP) Pulse Ox O2 O2 Flow FiO2 Time Delivery Rate 08/27/18 98.0 103 22 115/87 95 Nasal 4.0 20:23 (96) Cannula 08/27/18 Nasal 4 18:38 Cannula 08/27/18 98.0 122 24 114/81 95 Nasal 4.0 18:38 (92) Cannula 08/27/18 98.0 135 24 122/80 95 18:24 (94) Physical Exam Const: No acute distress, eyes open, no verbal response. Cachectic Head: Atraumatic Eyes: Normal Conjunctiva ENT: Dry mucous membranes. Normal External Ears, Nose and Mouth. Neck: Full range of motion. No meningismus. Resp: No retractions. No rales, rhonchi, or wheezing. Diminished breath sounds bilaterally Cardio: Regular rate and rhythm, no murmurs Abd: Soft, non tender, non distended. Normal bowel sounds Skin: No petechiae or rashes Back: No midline or flank tenderness Ext: No cyanosis, or edema Neur: Awake and alert, nonverbal Psych: Flat affect Result Diagram: 08/27/18185308/27/181853 Results 24 hrs Laboratory Tests Test 08/27/18 18:54 08/27/18 19:41 08/27/18 19:42 08/27/18 20:07 White Blood Count 9.8 10^3/ul Red Blood Count 3.65 10^6/ul Hemoglobin 10.4 g/dl Hematocrit 32.7 % Mean Corpuscular 89.6 fl Volume Mean Corpuscular 28.5 pg Hemoglobin Mean Corpuscular 31.8 g/dl Hemoglobin Concent Red Cell 17.4 % Distribution Width Platelet Count 446 10^3/UL Mean Platelet 9.1 fl Volume Immature 2.400 % Granulocytes % Neutrophils % 78.2 % Lymphocytes % 7.5 % Monocytes % 7.4 % Eosinophils % 3.7 % Basophils % 0.8 % Nucleated Red Blood 0.0 /100WBC Cells % Immature 0.240 10^3/ul Granulocytes # Neutrophils # 7.7 10^3/ul Lymphocytes # 0.7 10^3/ul Monocytes # 0.7 10^3/ul Eosinophils # 0.4 10^3/ul Basophils # 0.1 10^3/ul Nucleated Red Blood 0.0 10^3/ul Cells # Sodium Level 137 mmol/L Potassium Level 4.7 mmol/L Chloride Level 103 mmol/L Carbon Dioxide 23 mmol/L Level Anion Gap 11 Blood Urea Nitrogen 25 mg/dl Creatinine 0.58 mg/dl Est Glomerular > 60 mL/min Filtrat Rate mL/min Glucose Level 101 mg/dl Calcium Level 8.8 mg/dl Troponin I < 0.012 ng/ml Total Bilirubin 0.7 mg/dl Direct Bilirubin 0.00 mg/dl Indirect Bilirubin 0.7 mg/dl Aspartate Amino 22 IU/L Transf (AST/SGOT) Alanine 43 IU/L Aminotransferase (A LT/SGPT) Alkaline 258 IU/L Phosphatase B-Type Natriuretic 8270 PG/ML Peptide Total Protein 6.6 g/dl Albumin 2.9 g/dl Urine Color RED Urine Clarity CLOUDY Urine pH 8.0 Urine Specific 1.010 [place] Urine Ketones NEGATIVE mg/dL Urine Nitrite NEGATIVE mg/dL Urine Bilirubin NEGATIVE mg/dL Urine Urobilinogen NEGATIVE mg/dL Urine Leukocyte NEGATIVE Mary/ul Esterase Urine Microscopic > 182 /HPF RBC Urine Microscopic 178 /HPF WBC Urine Bacteria FEW /HPF Urine Hemoglobin 3+ mg/dL Urine Glucose NEGATIVE mg/dL Urine Total Protein 2+ mg/dl POC Venous Lactate 1.3 mmol/L Current Medications Medications Dose Sig/Carlos A Start Time Status Last (Trade) Ordered Route PRN Stop Time Admin Dose Reason Admin Sodium 1,800 ml BOLUS OVER 2 08/27/18 DC 08/27/18 Chloride HOURS STAT 19:33 08/27/18 19:55 (NS) IV* 19:35 Cefepime HCl 50 ml @ ONCE STAT 08/27/18 DC 08/27/18 100 mls/hr IVPB 19:33 08/27/18 19:55 20:02 Vancomycin 250 ml @ ONCE ONCE 08/27/18 08/27/18 HCl 125 mls/hr IVPB 20:00 08/27/18 20:35 21:59 Diltiazem 20 mg ONCE ONCE 08/27/18 DC HCl IV 20:30 08/27/18 (Cardizem Iv) 20:31 Procedures/MDM EMERGENT LABS AND DIAGNOSTIC STUDIES: Lab Results above were reviewed and interpreted by me. CBC: Chronic mild anemia. Acute thrombocytosis CMP: Mild BUN elevation, likely secondary to dehydration. No evidence of clinically significant electrolyte abnormality, acidosis, renal failure, hypogly cemia, liver disease, or biliary obstruction Troponin within normal limits, not indicative of cardiac ischemia Lactate within normal limits without evidence of sepsis or tissue hypoperfusion UA: Increased RBCs and WBCs 12-lead EKG was interpreted by Mellissa Dawkins MD: Atrial fibrillation with RVR at 102 bpm Normal axis QTC prolonged at [address] depressions No acute ST or T wave changes suggestive of acute ischemia or STEMI. Radiology Results as interpreted by Radiology below were reviewed by Mariana Dawkins MD: Chest x-ray: Worsening bilateral consolidations consistent with infection versus pulmonary edema Initial Nursing notes reviewed. Previous Medical Records requested via the Electronic Health Record. EMERGENCY DEPARTMENT COURSE / MEDICAL DECISION MAKING: Patient presented with tachycardia, for which sepsis work-up was initiated as the source of the tachycardia was unclear. He does have A. fib at baseline. He seemed to be in A. fib with RVR. Imaging showed possible pneumonia. He was treated with broad-spectrum antibiotics. IV fluids given. No evidence of severe sepsis or septic shock. After fluids, he remained tachycardic so he was treated with diltiazem 10 mg IV with improvement of his heart rate. Patient will still require stabilization, further work-up presumed pneumonia and treatment for. He will be admitted to telemetry for observation. Patient accepted by Critical Care Time: 50 minutes Treatments/Evaluations: Close monitoring and treatment of unstable vital signs, cardiorespiratory, and neurologic status, while maintaining tight balance of fluid, respiratory, and cardiac interventions. This time includes discussing the case with the patient and the patients family. This time does not include all procedures stated elsewhere in this record. This time also includes reviewing old records, labs and radiological studies. This time includes examining and re- examining the patient. Additionally, this time also includes arranging care with admitting and consulting physicians. Departure Diagnosis: Primary Impression: Atrial fibrillation with RVR Additional Impression: Multifocal lung consolidation Condition: RUBEN Ledesma MD Aug 27, 2018 18:29
[2018-08-27] MEDS ORDERED: SODIUM CHLORIDE 0.9% 1L BAG IV* STA (19:33)
[2018-08-27] MEDS ORDERED: CEFEPIME 2GM/50 ML (PMX) 50 ML IVPB STA (19:33)
[2018-08-27] MEDS ORDERED: VANCOMYCIN 1 GM (PMX) 250 ML IVPB ONE (20:00)
[2018-08-27] MEDS ORDERED: DILTIAZEM 25 MG INJ IV ONE (20:30)
[2018-08-27] MEDS ORDERED: ACETAMINOPHEN 325 MG TAB PO PRN (21:30)
[2018-08-27] MEDS ORDERED: ONDANSETRON 4 MG INJ IV PRN (21:30)
[2018-08-27] MEDS ORDERED: DILTIAZEM 60 MG TAB GTB ONE (22:00)
[2018-08-27] MEDS ORDERED: FUROSEMIDE 20 MG INJ IV ONE (22:00)
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
[2018-08-28] MEDS ORDERED: LEVALBUTEROL (HFA) 15 GM INHALER INH PRN
[2018-08-28] MEDS ORDERED: ACETAMINOPHEN 325 MG TAB PO PRN
[2018-08-28] MEDS ORDERED: ONDANSETRON 4 MG INJ IV PRN
[2018-08-28] MEDS ORDERED: NACL 0.9% 3 ML SYG IV SCH
[2018-08-28] MEDS ORDERED: IPRATROPIUM (NEB) 0.5 MG/2.5 ML AMP INH PRN
[2018-08-28] MEDS ORDERED: VANCOMYCIN IV PER PHARMACY XX SCH (07:00)
[2018-08-28] MEDS: DILTIAZEM (SR) 60 MG CAP PO SCH ×3 (08:47→21:37)
[2018-08-28] MEDS: LANSOPRAZOLE 30 MG CAP PO SCH (08:47)
[2018-08-28] MEDS ORDERED: VANCOMYCIN 1 GM INJ IV SCH (09:00)
[2018-08-28] MEDS: AMIODARONE 200 MG TAB PO SCH ×3 (09:44→21:37)
[2018-08-28] MEDS: MEROPENEM 1 GM/50ML(PMX) 50 ML IVPB SCH ×2 (10:48→21:38)
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
--- NOTE | 2018-08-28 14:30 | RADRPT ---
Echocardiogram Report Patient Name: LEXI JOHNSONPatient ID: [id number] : 108 (72y 9m)Study Date: 08/28/2018 2:05:20 PM Gender: MAccession #: [id number] Tech: Jenna Bashir RDCS Location: ER Ref.Physician: DYLAN LOPEZ Height(Cm): BSA: Weight(Kg): Quality: AdequateOrder Physician: DYLAN LOPEZ Account #: Procedures: Echocardiographic Report: Transthoracic echocardiogram with complete 2D, M-Mode, and doppler examination. Indications: Endocarditis. Measurements: 2D/M Mode Doppler Measurement Value Normal Range Measurement Value Normal Range LVIDd 2D 3.7 [ 4.2 - 5.8 ] cm AV Peak Alex 1.0 [ 100.0 - 170.0 ] cm/se c LVIDs 2D 2.3 [ 2.5 - 4.0 ] cm AV Peak PG 4.0 [ 2.0 - 9.0 ] mmHg LVPWd 2D 1.1 [ 0.6 - 1.0 ] cm LVOT Peak Alex 0.8 [ 70.0 - 110.0 ] cm/sec IVSd 2D 0.9 [ 0.6 - 1.0 ] cm LVOT Peak PG 2.0 [ 2.0 - 6.0 ] mmHg AoR Diam 2D 1.9 [ 2.6 - 3.4 ] cm MV E Peak Laex 0.8 [ 60.0 - 130.0 ] cm/sec EDV 2D 59.6 [ 62.0 - 150.0 ] ml MV A Peak Alex 0.2 [ 100.0 - 120.0 ] cm/se c ESV 2D 18.7 [ 21.0 - 61.0 ] ml MV E/A 3.4 [ 0.8 - 1.5 ] ratio EF 2D 68.6 [ 52.0 - 72.0 ] percent MV PHT 55.0 [ 20.0 - 100.0 ] msec LA Dimen 2D 4.0 [ 3.0 - 4.0 ] cm MV Decel Time 187 [ 104 - 258 ] msec MV Decel [place] 4 Lat E` Alex 0.1 [ 10.0 - 15.0 ] cm/sec Lateral E/E` 11.4 [ 1.0 - 2.0 ] ratio Med E` Alex 0.1 cm/sec MV E/A 3.4 [ 0.8 - 1.5 ] ratio MVA PHT 4.0 [ 2.0 - 4.0 ] cm2 TR Peak Alex 2.5 [ 100.0 - 280.0 ] cm/se c TR Peak PG 26.0 mmHg Findings: Left Ventricle: Normal left ventricular systolic function. Normal left ventricular cavity size. Normal left ventricular wall thickness. Ejection fraction is visually estimated at 50-55 %. Tissue Doppler/Mitral Doppler indices are within normal limits. Right Ventricle: Normal right ventricular size. Normal right ventricular systolic function. Left Atrium: The left atrium is normal in size. Right Atrium: The right atrium is normal in size. Atrial Septum: Normal atrial septum. Ventricular septum: Normal/intact ventricular septum. Mitral Valve: Normal appearance of the mitral valve. Mild mitral valve regurgitation. Aortic Valve: Normal appearance of the aortic valve. Mild aortic valve regurgitation. Tricuspid Valve: Normal appearance of the tricuspid valve. The estimated Peak RVSP is 26 mmHg. There is trace to mild tricuspid regurgitation. Pulmonic Valve: Pulmonic valve not well visualized. No evidence of pulmonic regurgitation. Pericardium: Normal pericardium with no significant pericardial effusion. Aorta: Normal aortic root. IVC: The IVC is not well visualized. Conclusions: Normal left ventricular systolic function. Normal left ventricular cavity size. Normal left ventricular wall thickness. Ejection fraction is visually estimated at 50-55 %. Tissue Doppler/Mitral Doppler indices are within normal limits. Normal appearance of the mitral valve. Mild mitral valve regurgitation. n. Normal appearance of the aortic valve. Mild aortic valve regurgitation. n. Normal appearance of the tricuspid valve. The estimated Peak RVSP is 26 mmHg. There is trace to mild tricuspid regurgitation. Electronically Signed By: Dylan Lopez 2018-08-28 14:29:39 PDT
[2018-08-28 16:48] VITALS: BP 128/74; PULSE 113; RESP 20
--- NOTE | 2018-08-28 16:57 | CONS ---
DATE OF ADMISSION: 08/27/2018 DATE OF CONSULTATION: 08/28/2018 TYPE OF CONSULTATION: Cardiology. REFERRING PHYSICIAN: Augustus Cheatham MD REASON FOR EVALUATION: Tachycardia, atrial fibrillation. HISTORY OF PRESENT ILLNESS: Mr. Tierney is a 72-year-old gentleman with history of hypertension, dysl ipidemia, history of multiple cerebral infarcts with hemorrhagic conversion, history of mitral valve endocarditis with probable emboli, who comes to the hospital now for evaluation of hypotension and ta chycardia. It appears that the patient was recently hospitalized at [place] for some time and then he was transferred to nursing facility. When he presented there, he was hypotensive with likely early sepsis and he was transferred back to the emergency room department. In the emergency department, he was hypotensive. He was resuscitated with IV fluids. The patient is obtunded. Right now, he is ta chycardic with atrial fibrillation with variable rate. I have been asked to see patient in consultat ion based on presentation here and with multiple embolic infarcts. He is not a candidate for anticoa gulation in this particular point. We will try to rate control while maintaining fluid overload. Th e patient is extremely debilitated and I think his overall long-term prognosis is fairly poor. PAST MEDICAL HISTORY: 1. Hypertension. 2. Dyslipidemia. 3. History of endocarditis of the mitral valve. 4. History of atrial fibrillation. 5. History of secondary hypercoagulable state, not on anticoagulation because of hemorrhagic convers ion after the stroke. 6. History of recurrent sepsis. 7. History of C. diff. 8. History of schizoaffective disorder. 9. Bleeding. ALLERGIES: NO KNOWN ALLERGIES. SOCIAL HISTORY: The patient does not smoke, does not drink, does not use any drugs. FAMILY HISTORY: Negative for sudden cardiac or premature coronary artery disease. FACILITY MEDICATIONS: Include: 1. Tylenol. 2. Albuterol. 3. Amiodarone 200 mg once a day. 4. Ascorbic acid. 5. Collagenase or treatment for wound. 6. Lansoprazole. 7. Metoprolol 25 mg p.o. every 6 hours. 8. Morphine per G-tube. 9. Statin. REVIEW OF SYSTEMS: The patient is not able to provide. According to the nursing staff, he was very tachycardic and somewhat obtunded on presentation. PHYSICAL EXAMINATION: VITAL SIGNS: Temperature is 98.7, heart rate is now in the 70s to 90s, blood pressure 108/73. GENERAL: He is a thin gentleman in no acute distress, alert, not aware of his condition. HEENT: Head: Normocephalic, atraumatic. Eyes are anicteric. NECK: Supple. JVD is 6 cm. HEART: II/ murmur at the apex. LUNGS: Coarse at the base. ABDOMEN: Distended. Bowel sounds are present. There is no hepatosplenomegaly. GENITOURINARY: Intact. EXTREMITIES: Shows trace edema. LABORATORY DATA: White blood cell count 4.7, hemoglobin is 9.3, platelets 433. His sodium is 140, p otassium 4.4, BUN is 21, creatinine 0.9. Troponin is negative at 0.012. ASSESSMENT AND PLAN: 1. Atrial fibrillation. The patient has atrial fibrillation, chronic, now rate better controlled fr om presentation. Continue to monitor. He is on a beta jose, which is probably better to hold now in the setting of hypotension. 2. History of secondary hypercoagulable state. The patient cannot be anticoagulated because of hist ory of hemorrhagic conversion. 3. Mitral valve endocarditis. We will follow up with a 2D echo. We will obtain blood cultures and initiate infectious workup and 2D echo to follow. 4. Hypotension, responded to IV boluses. Continue to treat. Antibiotic therapy in place. 5. Chronic debilitated state. Continue nutritional status as needed. 6. Anemia. No evidence of bleeding now. I would like to thank Dr. Cheatham for referring this patient for my evaluation. Dictated By: DYLAN LOPEZ MD ML/NTS Conf#: [id number] DID#: [id number] CC: PERLA NARANJO MD;*EndCC*
[2018-08-28] MEDS ORDERED: PENDING SANTYL ORDER FOR WOUND CARE XX PRN (19:00)
[2018-08-28 19:38] VITALS: BP 100/66; PULSE 125; RESP 20
[2018-08-28] MEDS: BALSAM PERU/CASTOR OIL 60 GM TUBE TOP SCH (21:00)
[2018-08-28] MEDS: VANCOMYCIN 1 GM 250 ML IVPB SCH (21:39)
[2018-08-29] VITALS: BP 107/66; PULSE 125; RESP 20
[2018-08-29 04:00] VITALS: BP 98/60; PULSE 91; RESP 20
[2018-08-29] MEDS: LANSOPRAZOLE 30 MG CAP PO SCH (06:37)
[2018-08-29 07:23] VITALS: BP 115/70; PULSE 100; RESP 20
[2018-08-29] MEDS: BALSAM PERU/CASTOR OIL 60 GM TUBE TOP SCH ×2 (08:35→20:36)
[2018-08-29] MEDS: MEROPENEM 1 GM/50ML(PMX) 50 ML IVPB SCH ×2 (08:35→20:33)
[2018-08-29] MEDS: COLLAGENASE 30 GM TUBE TOP SCH ×2 (08:35→08:41)
[2018-08-29] MEDS: DILTIAZEM (SR) 60 MG CAP PO SCH (08:36)
[2018-08-29] MEDS: AMIODARONE 200 MG TAB PO SCH ×2 (08:36→20:36)
[2018-08-29 11:16] VITALS: BP 113/56; PULSE 85; RESP 20
[2018-08-29 15:29] VITALS: BP 110/63; PULSE 89; RESP 20
--- NOTE | 2018-08-29 17:47 | PN ---
Date/Time of Note Date/Time of Note DATE: 08/29/18 TIME: 17:39 Assessment/Plan VTE Prophylaxis [place] [facility] [place] risk: 7 SCD applied (from [facility] [place] Yes Pharmacological prophylaxis: NA/contraindicated Pharm contraindication: low risk/ambulating Lines/Catheters IV Catheter Type (from [facility]): Saline Lock Urinary Cath still in place: No Assessment/Plan Assessment/Plan 72-year-old male with atrial fibrillation, multifocal infarcts, dementia, chronic encephalopathy, psychosis/schizophrenia, MV endocarditis, dysphagia with G-tube who presents with: 1. Atrial fibrillation with RVR: Now rate controlled - Currently on PO amiodarone and diltiazem - Appreciate cardiology's help 2. Healthcare associated pneumonia: X-ray shows worsening consolidation -Continue IV antibiotic 3. Urinalysis: UA shows possible signs of this -IV antibiotic to continue for now -Follow-up culture results 4. History of multifocal infarct: - Monitor, supportive care 5. Chronic encephalopathy: Again supportive care 6. Dysphagia with G-tube 7. History of recent MV endocarditis -Monitor, follow cardiology recommendations 8. Bacteremia - Blood culture growing gram positive rods which are usually contaminants. Result Diagram: 08/29/1815 08/29/1815 Subjective 24 Hr Interval Summary Free Text/Dictation No acute overnight events. Rate controlled A fib on telemetry. Exam/Review of Systems Exam Vitals Vital Signs Date Temp Pulse Resp B/P (MAP) Pulse Ox O2 O2 Flow FiO2 Time Delivery Rate 08/29/18 98.6 89 20 110/63 99 15:29 (79) 08/29/18 Nasal 3.0 08:00 Cannula Intake and Output 08/28/18 08/28/18 08/29/18 1515:00 23:00 07:00 IntakeIntake Total 50 ml OutputOutput Total 1050 ml BalanceBalance -1000 ml Exam General: Lying in bed, on nasal cannula. Head: Normocephalic, atraumatic. Eyes: Pupils equally reactive, EOM intact ENT: Moist mucous membranes Neck: Supple, no lymphadenopathy Respiratory: Slightly distant breath sounds bilaterally Cardiovascular: No rubs or gallops Abdominal: Soft, non-tender, non-distended, no peritoneal sign MSK: No lower extremity bilaterally Results Results 24hrs Laboratory Tests Test 08/29/18 05:15 White Blood Count 8.3 # Red Blood Count 3.10 L Hemoglobin 8.8 L Hematocrit 28.3 L Mean Corpuscular Volume 91.3 Mean Corpuscular Hemoglobin 28.4 L Mean Corpuscular Hemoglobin Concent 31.1 L Red Cell Distribution Width 17.6 H Platelet Count 398 Mean Platelet Volume 9.3 Immature Granulocytes % 2.000 H Neutrophils % 78.5 H Lymphocytes % 7.6 L Monocytes % 8.9 Eosinophils % 2.0 Basophils % 1.0 Nucleated Red Blood Cells % 0.0 Immature Granulocytes # 0.170 H Neutrophils # 6.5 Lymphocytes # 0.6 L Monocytes # 0.7 Eosinophils # 0.2 Basophils # 0.1 Nucleated Red Blood Cells # 0.0 Sodium Level 143 Potassium Level 3.5 Chloride Level 112 H Carbon Dioxide Level 22 Anion Gap 9 Blood Urea Nitrogen 21 H Creatinine 0.73 Est Glomerular Filtrat Rate mL/min > 60 Glucose Level 72 Calcium Level 8.8 Phosphorus Level 4.7 Magnesium Level 2.3 Triglycerides Level 71 Cholesterol Level 85 L LDL Cholesterol, Calculated 55 HDL Cholesterol 16 L Cholesterol/HDL Ratio 5.3 Medications Medication Current Medications IV Flush (NS 3 ml) 3 ml PER PROTOCOL IV ; Start 08/28/18 at 00:00 Ondansetron HCl (Zofran Inj) 4 mg Q6H PRN IV NAUSEA/VOMITING; Start 08/28/18 at 00:00 Acetaminophen (Tylenol Tab) 650 mg Q6H PRN PO .PAIN 1-3 OR TEMP; Start 08/28/18 at 00:00 Amiodarone HCl (Cordarone) 200 mg BID PO Last administered on 08/29/18at 08:36; Admin Dose 200 MG; Start 08/28/18 at 00:00 Collagenase (Santyl) 1 applic DAILY TOP Last administered on 08/29/18at 08:35; Admin Dose 1 APPLIC; Start 08/28/18 at 09:00 Diltiazem HCl (Cardizem Sr) 60 mg Q12 PO Last administered on 08/29/18at 08:36; Admin Dose 60 MG; Start 08/28/18 at 00:00 Ipratropium [place] (Atrovent 0.02% (Neb)) 0.5 mg Q6H RESP THERAPY PRN INH SHORTNESS OF BREATH; Start 08/28/18 at 00:00 Lansoprazole (Prevacid) 30 mg DAILY@0600 PO Last administered on 08/29/18at 06:37; Admin Dose 30 MG; Start 08/28/18 at 06:00 Levalbuterol (Xopenex Hfa) 1 puff Q4H RESP THERAPY PRN INH WHEEZING AND SOB; Start 08/28/18 at 00:00 Meropenem/Sodium Chloride 50 ml @ 100 mls/hr Q12 IVPB Last administered on 08/29/18at 08:35; Admin Dose 100 MLS/HR; Start 08/28/18 at 09:00 Vancomycin HCl 250 ml @ 125 mls/hr Q24H IVPB Last administered on 08/28/18at 21:39; Admin Dose 125 MLS/HR; Start 08/28/18 at 20:30 Vancomycin HCl (Vanco Iv Per Pharmacy) PER PHARMACY DOSING NOTE XX ; Start at 07:00 Miscellaneous Information (Pending Santyl Order For Wound Care) This patient dugan... PRN PRN XX WOUND CARE; Start 08/28/18 at 19:00 Multivitamins (Multivitamin) 30 ml DAILY GTB ; Start 08/30/18 at 09:00 Ascorbic Acid (Vitamin C) 500 mg DAILY GTB ; Start 08/30/18 at 09:00 RACIEL HUMPHREY MD Aug 29, 2018 17:47
--- NOTE | 2018-08-29 18:39 | CONS ---
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 Encephalopathy CVA, hemorrhagic History of nonsustained ventricular tachycardia Adjust cardizem to q 6h -Maintain k>4.0 and Mg>2.0, will order K -Antibiotics as per infectious disease Lasix as needed Consultation Date/Type/Reason Admit Date/Time Aug 29, 2018 at 07:31 Initial Consult Date Type of Consult Cardiology Date/Time of Note DATE: 08/29/18 TIME: 18:36 24 HR Interval Summary Free Text/Dictation pt seen and examined Exam/Review of Systems Vital Signs Vitals Vital Signs Date Temp Pulse Resp B/P (MAP) Pulse Ox O2 O2 Flow FiO2 Time Delivery Rate 08/29/18 98.6 89 20 110/63 99 15:29 (79) 08/29/18 Nasal 3.0 08:00 Cannula Intake and Output 08/28/18 08/28/18 08/29/18 1515:00 23:00 07:00 IntakeIntake Total 50 ml OutputOutput Total 1050 ml BalanceBalance -1000 ml Exam Exam sleeping, nad Head: normocephalic Respiratory: other (course bs, no wheeze) Cardiovascular: irregular rhythm, systolic murmur (s1s2) Gastrointestinal: soft, non-tender, bowel sounds Extremities: other (no edema) Labs Result Diagram: 08/29/18 0515 08/29/18 0515 Results 24hrs Laboratory Tests Test 08/29/18 05:15 White Blood Count 8.3 # Red Blood Count 3.10 L Hemoglobin 8.8 L Hematocrit 28.3 L Mean Corpuscular Volume 91.3 Mean Corpuscular Hemoglobin 28.4 L Mean Corpuscular Hemoglobin Concent 31.1 L Red Cell Distribution Width 17.6 H Platelet Count 398 Mean Platelet Volume 9.3 Immature Granulocytes % 2.000 H Neutrophils % 78.5 H Lymphocytes % 7.6 L Monocytes % 8.9 Eosinophils % 2.0 Basophils % 1.0 Nucleated Red Blood Cells % 0.0 Immature Granulocytes # 0.170 H Neutrophils # 6.5 Lymphocytes # 0.6 L Monocytes # 0.7 Eosinophils # 0.2 Basophils # 0.1 Nucleated Red Blood Cells # 0.0 Sodium Level 143 Potassium Level 3.5 Chloride Level 112 H Carbon Dioxide Level 22 Anion Gap 9 Blood Urea Nitrogen 21 H Creatinine 0.73 Est Glomerular Filtrat Rate mL/min > 60 Glucose Level 72 Calcium Level 8.8 Phosphorus Level 4.7 Magnesium Level 2.3 Triglycerides Level 71 Cholesterol Level 85 L LDL Cholesterol, Calculated 55 HDL Cholesterol 16 L Cholesterol/HDL Ratio 5.3 Medications Medications Current Medications IV Flush (NS 3 ml) 3 ml PER PROTOCOL IV ; Start 08/28/18 at 00:00 Ondansetron HCl (Zofran Inj) 4 mg Q6H PRN IV NAUSEA/VOMITING; Start 08/28/18 at 00:00 Acetaminophen (Tylenol Tab) 650 mg Q6H PRN PO .PAIN 1-3 OR TEMP; Start 08/28/18 at 00:00 Amiodarone HCl (Cordarone) 200 mg BID PO Last administered on 08/29/18 08:36; Admin Dose 200 MG; Start 08/28/18 at 00:00 Collagenase (Santyl) 1 applic DAILY TOP Last administered on 08/29/18 08:35; Admin Dose 1 APPLIC; Start 08/28/18 at 09:00 Diltiazem HCl (Cardizem Sr) 60 mg Q12 PO Last administered on 08/29/18 08:36; Admin Dose 60 MG; Start 08/28/18 at 00:00 Ipratropium [place] (Atrovent 0.02% (Neb)) 0.5 mg Q6H RESP THERAPY PRN INH SHORTNESS OF BREATH; Start 08/28/18 at 00:00 Lansoprazole (Prevacid) 30 mg DAILY@0600 PO Last administered on 08/29/18at 06:37; Admin Dose 30 MG; Start 08/28/18 at 06:00 Levalbuterol (Xopenex Hfa) 1 puff Q4H RESP THERAPY PRN INH WHEEZING AND SOB; Start 08/28/18 at 00:00 Meropenem/Sodium Chloride 50 ml @ 100 mls/hr Q12 IVPB Last administered on 08/29/18 08:35; Admin Dose 100 MLS/HR; Start 08/28/18 at 09:00 Vancomycin HCl 250 ml @ 125 mls/hr Q24H IVPB Last administered on 08/28/18at 21:39; Admin Dose 125 MLS/HR; Start 08/28/18 at 20:30 Vancomycin HCl (Vanco Iv Per Pharmacy) PER PHARMACY DOSING NOTE XX ; Start 08/28/18 at 07:00 Miscellaneous Information (Pending Santyl Order For Wound Care) This patient dugan... PRN PRN XX WOUND CARE; Start 08/28/18 at 19:00 Multivitamins (Multivitamin) 30 ml DAILY GTB ; Start 08/30/18 at 09:00 Ascorbic Acid (Vitamin C) 500 mg DAILY GTB ; Start 08/30/18 at 09:00 Charan Cottrell DO Aug 29, 2018 18:39
[2018-08-29] MEDS ORDERED: POTASSIUM CHLORIDE 20 MEQ POWDER FOR ORAL SOLN GTB ONE (19:00)
[2018-08-29 20:25] VITALS: BP 122/64; PULSE 99; RESP 20
[2018-08-29] MEDS: VANCOMYCIN 1 GM 250 ML IVPB SCH (21:15)
[2018-08-30] VITALS (8 sets, daily range): BP systolic 97–131; BP diastolic 58–80; PULSE 73–114; RESP 18–20
[2018-08-30] MEDS: DILTIAZEM 30 MG TAB PO SCH ×4 (00:06→18:23)
[2018-08-30] MEDS: LANSOPRAZOLE 30 MG CAP PO SCH (06:34)
[2018-08-30] MEDS: COLLAGENASE 30 GM TUBE TOP SCH (08:45)
[2018-08-30] MEDS: ASCORBIC ACID 500 MG TAB GTB SCH (08:45)
[2018-08-30] MEDS: BALSAM PERU/CASTOR OIL 60 GM TUBE TOP SCH ×2 (08:45→21:29)
[2018-08-30] MEDS: MULTIVITAMINS 30 ML CUP GTB SCH (08:45)
[2018-08-30] MEDS: AMIODARONE 200 MG TAB PO SCH ×2 (08:46→21:29)
--- NOTE | 2018-08-30 11:53 | PN ---
Date/Time of Note Date/Time of Note DATE: 08/30/18 TIME: 11:45 Assessment/Plan VTE [place]axis [place] [facility] [place]: 7 [place] [facility] [place] Yes Pharmacological prophylaxis: NA/contraindicated Pharm contraindication: low risk/ambulating Lines/Catheters IV [facility]atheter Type (from [facility] Saline Lock Urinary Cath still in place: No Assessment/Plan Assessment/Plan 72-year-old male with atrial fibrillation, multifocal infarcts, dementia, chronic encephalopathy, psychosis/schizophrenia, MV endocarditis, dysphagia with G-tube who presents with: 1. Atrial fibrillation with RVR: Now rate controlled - Currently on PO amiodarone and diltiazem - Appreciate cardiology's help 2. Healthcare associated pneumonia: X-ray shows worsening consolidation -Continue IV antibiotics 3. Bacteremia - Blood culture growing gram positive rods which are usually contaminants. 4. History of multifocal infarct: - Monitor, supportive care 5. Chronic encephalopathy: Again supportive care 6. Dysphagia with G-tube 7. History of recent MV endocarditis -Monitor, follow cardiology recommendations Anticipate discharge in 24-48 hours Result Diagram: 08/30/18 0503 08/30/18 0506 Subjective 24 Hr Interval Summary Free Text/Dictation No acute overnight events. Patient much more awake and alert today. On telemetry, rate is running around 100s in A fib. Some brief runs of V tach <5 seconds. Exam/Review of Systems Exam Vitals Vital Signs Date Temp Pulse Resp B/P (MAP) Pulse Ox O2 O2 Flow FiO2 Time Delivery Rate 08/30/18 98.3 108 20 114/64 94 11:18 (81) 08/30/18 Nasal 2.0 04:00 Cannula Intake and Output 08/29/18 08/29/18 08/30/18 1515:00 23:00 07:00 IntakeIntake Total 50 ml 100 ml 1055 ml OutputOutput Total 1050 ml BalanceBalance 50 ml 100 ml 5 ml Exam General: Lying in bed, on nasal cannula. Head: Normocephalic, atraumatic. Eyes: Pupils equally reactive, EOM intact ENT: Moist mucous membranes Neck: Supple, no lymphadenopathy Respiratory: Slightly distant breath sounds bilaterally Cardiovascular: No rubs or gallops Abdominal: Soft, non-tender, non-distended, no peritoneal sign MSK: No lower extremity bilaterally. Severe leg muscle atrophy. Neuro: Awake, alert. Slowed mentation. Oriented to name, location ("I'm in the hospital"), but not date ("I'm afraid I don't know"). Able to wiggle toes. Unable to move legs on command. Results Results 24hrs Laboratory Tests Test 08/30/18 05:03 08/30/18 05:06 White Blood Count 10.8 # Red Blood Count 3.42 L Hemoglobin 9.8 L Hematocrit 30.9 L Mean Corpuscular Volume 90.4 Mean Corpuscular Hemoglobin 28.7 L Mean Corpuscular Hemoglobin Concent 31.7 L Red Cell Distribution Width 17.4 H Platelet Count 438 H Mean Platelet Volume 9.2 Immature Granulocytes % 1.500 H Neutrophils % 81.9 H Lymphocytes % 6.1 L Monocytes % 7.5 Eosinophils % 2.4 Basophils % 0.6 Nucleated Red Blood Cells % 0.0 Immature Granulocytes # 0.160 H Neutrophils # 8.9 H Lymphocytes # 0.7 L Monocytes # 0.8 Eosinophils # 0.3 Basophils # 0.1 Nucleated Red Blood Cells # 0.0 Sodium Level 147 H Potassium Level 3.9 Chloride Level 112 H Carbon Dioxide Level 25 Anion Gap 10 Blood Urea Nitrogen 23 H Creatinine 0.74 Est Glomerular Filtrat Rate mL/min > 60 Glucose Level 161 Calcium Level 9.1 Medications Medication Current Medications IV Flush (NS 3 ml) 3 ml PER PROTOCOL IV ; Start 08/28/18 at 00:00 Ondansetron HCl (Zofran Inj) 4 mg Q6H PRN IV NAUSEA/VOMITING; Start 08/28/18 at 00:00 Acetaminophen (Tylenol Tab) 650 mg Q6H PRN PO .PAIN 1-3 OR TEMP; Start 08/28/18 at 00:00 Amiodarone HCl (Cordarone) 200 mg BID PO Last administered on 08/30/18at 08:46; Admin Dose 200 MG; Start 08/28/18 at 00:00 Collagenase (Santyl) 1 applic DAILY TOP Last administered on 08/30/18at 08:45; Admin Dose 1 APPLIC; Start 08/28/18 at 09:00 Ipratropium [place] (Atrovent 0.02% (Neb)) 0.5 mg Q6H RESP THERAPY PRN INH SHORTNESS OF BREATH; Start 08/28/18 at 00:00 Lansoprazole (Prevacid) 30 mg DAILY@0600 PO Last administered on 08/30/18 06:34; Admin Dose 30 MG; Start 08/28/18 at 06:00 Levalbuterol (Xopenex Hfa) 1 puff Q4H RESP THERAPY PRN INH WHEEZING AND SOB; Start 08/28/18 at 00:00 Miscellaneous Information (Pending Santyl Order For Wound Care) This patient dugan... PRN PRN XX WOUND CARE; Start 08/28/18 at 19:00 Multivitamins (Multivitamin) 30 ml DAILY GTB Last administered on 08/30/18at 08:45; Admin Dose 30 ML; Start 08/30/18 at 09:00 Ascorbic Acid (Vitamin C) 500 mg DAILY GTB Last administered on 08/30/18 08:45; Admin Dose 500 MG; Start 08/30/18 at 09:00 Diltiazem HCl (Cardizem) 30 mg Q6 PO Last administered on 08/30/18 06:34; Admin Dose 30 MG; Start 08/30/18 at 00:00 RACIEL HUMPHREY MD Aug 30, 2018 11:53
[2018-08-30] MEDS: MEROPENEM 1 GM/50ML(PMX) 50 ML IVPB SCH ×2 (12:44→21:29)
--- NOTE | 2018-08-30 17:50 | CONS ---
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 Encephalopathy CVA, hemorrhagic History of nonsustained ventricular tachycardia Continue Cardizem as tolerated -Maintain k>4.0 and Mg>2.0 -Antibiotics as per infectious disease Lasix as needed Consultation Date/Type/Reason Admit Date/Time Aug 29, 2018 at 07:31 Initial Consult Date Type of Consult Cardiology Date/Time of Note DATE: 08/30/18 TIME: 17:49 24 HR Interval Summary Free Text/Dictation Patient seen and examined Exam/Review of Systems Vital Signs Vitals Vital Signs Date Temp Pulse Resp B/P (MAP) Pulse Ox O2 O2 Flow FiO2 Time Delivery Rate 08/30/18 98.6 73 20 97/58 (71) 96 15:15 08/30/18 Nasal 2.0 04:00 Cannula Intake and Output 08/29/18 08/29/18 08/30/18 1515:00 23:00 07:00 IntakeIntake Total 50 ml 100 ml 1055 ml OutputOutput Total 1050 ml BalanceBalance 50 ml 100 ml 5 ml Exam Exam Sleeping, no apparent distress Head: normocephalic Respiratory: other (Coarse breath sounds bilaterally, no wheezing) Cardiovascular: irregular rhythm (1 S2 heard) Gastrointestinal: soft, non-tender, bowel sounds Extremities: other (No significant edema) Labs Result Diagram: 08/30/18 0503 08/30/18 0506 Results 24hrs Laboratory Tests Test 08/30/18 05:03 08/30/18 05:06 White Blood Count 10.8 # Red Blood Count 3.42 L Hemoglobin 9.8 L Hematocrit 30.9 L Mean Corpuscular Volume 90.4 Mean Corpuscular Hemoglobin 28.7 L Mean Corpuscular Hemoglobin Concent 31.7 L Red Cell Distribution Width 17.4 H Platelet Count 438 H Mean Platelet Volume 9.2 Immature Granulocytes % 1.500 H Neutrophils % 81.9 H Lymphocytes % 6.1 L Monocytes % 7.5 Eosinophils % 2.4 Basophils % 0.6 Nucleated Red Blood Cells % 0.0 Immature Granulocytes # 0.160 H Neutrophils # 8.9 H Lymphocytes # 0.7 L Monocytes # 0.8 Eosinophils # 0.3 Basophils # 0.1 Nucleated Red Blood Cells # 0.0 Sodium Level 147 H Potassium Level 3.9 Chloride Level 112 H Carbon Dioxide Level 25 Anion Gap 10 Blood Urea Nitrogen 23 H Creatinine 0.74 Est Glomerular Filtrat Rate mL/min > 60 Glucose Level 161 Calcium Level 9.1 Medications Medications Current Medications IV Flush (NS 3 ml) 3 ml PER PROTOCOL IV ; Start 08/28/18 at 00:00 Ondansetron HCl (Zofran Inj) 4 mg Q6H PRN IV NAUSEA/VOMITING; Start 08/28/18 at 00:00 Acetaminophen (Tylenol Tab) 650 mg Q6H PRN PO .PAIN 1-3 OR TEMP; Start 08/28/18 at 00:00 Amiodarone HCl (Cordarone) 200 mg BID PO Last administered on 08/30/18at 08:46; Admin Dose 200 MG; Start 08/28/18 at 00:00 Collagenase (Santyl) 1 applic DAILY TOP Last administered on 08/30/18at 08:45; Admin Dose 1 APPLIC; Start 08/28/18 at 09:00 Ipratropium [place] (Atrovent 0.02% (Neb)) 0.5 mg Q6H RESP THERAPY PRN INH SHORTNESS OF BREATH; Start 08/28/18 at 00:00 Lansoprazole (Prevacid) 30 mg DAILY@0600 PO Last administered on 08/30/18at 06:34; Admin Dose 30 MG; Start 08/28/18 at 06:00 Levalbuterol (Xopenex Hfa) 1 puff Q4H RESP THERAPY PRN INH WHEEZING AND SOB; Start 08/28/18 at 00:00 Miscellaneous Information (Pending Santyl Order For Wound Care) This patient dugan... PRN PRN XX WOUND CARE; Start 08/28/18 at 19:00 Multivitamins (Multivitamin) 30 ml DAILY GTB Last administered on 08/30/18at 08:45; Admin Dose 30 ML; Start 08/30/18 at 09:00 Ascorbic Acid (Vitamin C) 500 mg DAILY GTB Last administered on 08/30/18at 08:45; Admin Dose 500 MG; Start 08/30/18 at 09:00 Diltiazem HCl (Cardizem) 30 mg Q6 PO Last administered on 08/30/18at 12:44; Admin Dose 30 MG; Start 08/30/18 at 00:00 Meropenem/Sodium Chloride 50 ml @ 100 mls/hr Q12 IVPB Last administered on 08/30/18at 12:44; Admin Dose 100 MLS/HR; Start 08/30/18 at 11:50 Charan Cottrell DO Aug 30, 2018 17:50
[2018-08-31] MEDS: DILTIAZEM 30 MG TAB PO SCH ×4 (00:20→21:10)
[2018-08-31 04:00] VITALS: BP 111/70; PULSE 75; RESP 18
[2018-08-31] MEDS: LANSOPRAZOLE 30 MG CAP PO SCH (06:07)
[2018-08-31 07:25] VITALS: BP 119/76; PULSE 106; RESP 20
[2018-08-31] MEDS: ASCORBIC ACID 500 MG TAB GTB SCH (08:30)
[2018-08-31] MEDS: MEROPENEM 1 GM/50ML(PMX) 50 ML IVPB SCH ×2 (08:31→21:09)
[2018-08-31] MEDS: MULTIVITAMINS 30 ML CUP GTB SCH (08:31)
[2018-08-31] MEDS: BALSAM PERU/CASTOR OIL 60 GM TUBE TOP SCH ×2 (08:31→21:10)
[2018-08-31] MEDS: COLLAGENASE 30 GM TUBE TOP SCH (08:31)
[2018-08-31] MEDS: AMIODARONE 200 MG TAB PO SCH ×2 (08:34→21:09)
--- NOTE | 2018-08-31 10:51 | PN ---
Date/Time of Note Date/Time of Note DATE: 08/31/18 TIME: 10:45 Assessment/Plan VTE Prophylaxis [place] [facility] [place]: 6 [place]CD [place] [facility] [place] Yes Pharmacological prophylaxis: NA/contraindicated Pharm contraindication: hemorrhagic infarct Lines/Catheters IV [facility]ter Type (from [facility] Saline Lock Urinary Cath still in place: No Assessment/Plan Assessment/Plan 72-year-old male with atrial fibrillation, multifocal infarcts, dementia, chronic encephalopathy, psychosis/schizophrenia, MV endocarditis, dysphagia with G-tube who presents with: 1. Atrial fibrillation with RVR: Now rate controlled - Currently on PO amiodarone and diltiazem - Appreciate cardiology's help - Tachy overnight again to 130s. Will bolus and repeat blood cultures. 2. Healthcare associated pneumonia: X-ray shows worsening consolidation -Continue IV meropenem 3. Bacteremia - Blood culture growing gram positive rods which are usually contaminants. - Will repeat 4. History of multifocal infarct: - Monitor, supportive care 5. Chronic encephalopathy: Again supportive care 6. Dysphagia with G-tube 7. History of recent MV endocarditis - s/p course of vancomycin, completed 08/27. Result Diagram: 08/31/18 0536 08/31/18 0536 Subjective 24 Hr Interval Summary Free Text/Dictation On telemetry, patient is A fib tachy to 130s overnight. This morning he is sleepy, opens eyes to voice but minimally responsive. Exam/Review of Systems Exam Vitals Vital Signs Date Temp Pulse Resp B/P (MAP) Pulse Ox O2 O2 Flow FiO2 Time Delivery Rate 08/31/18 Nasal 3.0 08:08 Cannula 08/31/18 97.9 106 20 119/76 91 07:25 (90) Intake and Output 08/30/18 08/30/18 08/31/18 1515:00 23:00 07:00 IntakeIntake Total 100 ml 803 ml OutputOutput Total 1000 ml 1550 ml BalanceBalance -900 ml -747 ml Exam General: Lying in bed, on nasal cannula. Head: Normocephalic, atraumatic. Eyes: Pupils equally reactive, EOM intact ENT: Moist mucous membranes Neck: Supple, no lymphadenopathy Respiratory: Slightly distant breath sounds bilaterally Cardiovascular: No rubs or gallops Abdominal: Soft, non-tender, non-distended, no peritoneal sign MSK: No lower extremity bilaterally. Severe leg muscle atrophy. Neuro: Lethargic, arousable but not answering questions or following commands. Results Results 24hrs Laboratory Tests Test 08/31/18 05:36 White Blood Count 10.0 Red Blood Count 3.24 L Hemoglobin 9.3 L Hematocrit 29.9 L Mean Corpuscular Volume 92.3 Mean Corpuscular Hemoglobin 28.7 L Mean Corpuscular Hemoglobin Concent 31.1 L Red Cell Distribution Width 17.4 H Platelet Count 386 Mean Platelet Volume 9.3 Immature Granulocytes % 1.400 H Neutrophils % 83.6 H Lymphocytes % 6.6 L Monocytes % 7.2 Eosinophils % 1.0 Basophils % 0.2 Nucleated Red Blood Cells % 0.0 Immature Granulocytes # 0.140 H Neutrophils # 8.4 H Lymphocytes # 0.7 L Monocytes # 0.7 Eosinophils # 0.1 Basophils # 0.0 Nucleated Red Blood Cells # 0.0 Sodium Level 147 H Potassium Level 3.6 Chloride Level 113 H Carbon Dioxide Level 28 Anion Gap 6 Blood Urea Nitrogen 23 H Creatinine 0.52 L Est Glomerular Filtrat Rate mL/min > 60 Glucose Level 153 Calcium Level 8.6 Medications Medication Current Medications IV Flush (NS 3 ml) 3 ml PER PROTOCOL IV ; Start 08/28/18 at 00:00 Ondansetron HCl (Zofran Inj) 4 mg Q6H PRN IV NAUSEA/VOMITING; Start 08/28/18 at 00:00 Acetaminophen (Tylenol Tab) 650 mg Q6H PRN PO .PAIN 1-3 OR TEMP; Start 08/28/18 at 00:00 Amiodarone HCl (Cordarone) 200 mg BID PO Last administered on 08/31/18at 08:34; Admin Dose 200 MG; Start 08/28/18 at 00:00 Collagenase (Santyl) 1 applic DAILY TOP Last administered on 08/31/18at 08:31; Admin Dose 1 APPLIC; Start 08/28/18 at 09:00 Ipratropium [place] (Atrovent 0.02% (Neb)) 0.5 mg Q6H RESP THERAPY PRN INH SHORTNESS OF BREATH; Start 08/28/18 at 00:00 Lansoprazole (Prevacid) 30 mg DAILY@0600 PO Last administered on 08/31/18at 06:07; Admin Dose 30 MG; Start 08/28/18 at 06:00 Levalbuterol (Xopenex Hfa) 1 puff Q4H RESP THERAPY PRN INH WHEEZING AND SOB; Start 08/28/18 at 00:00 [facility] This patient dugan... PRN PRN XX WOUND CARE; Start 08/28/18 at 19:00 Multivitamins (Multivitamin) 30 ml DAILY GTB Last administered on 08/31/18 08:31; Admin Dose 30 ML; Start 08/30/18 at 09:00 Ascorbic Acid (Vitamin C) 500 mg DAILY GTB Last administered on 08/31/18 08:30; Admin Dose 500 MG; Start 08/30/18 at 09:00 Diltiazem HCl (Cardizem) 30 mg Q6 PO Last administered on 08/31/18 06:07; Admin Dose 30 MG; Start 08/30/18 at 00:00 Meropenem/Sodium Chloride 50 ml @ 100 mls/hr Q12 IVPB Last administered on 08:31; Admin Dose 100 MLS/HR; Start 08/30/18 at 11:50 RACIEL HUMPHREY MD Aug 31, 2018 10:51
[2018-08-31] MEDS ORDERED: LACTATED RINGER'S 1,000 ML IV ONE (11:00)
[2018-08-31 11:59] VITALS: BP 117/75; PULSE 108; RESP 20
--- NOTE | 2018-08-31 13:23 | CONS ---
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 Encephalopathy CVA, hemorrhagic History of nonsustained ventricular tachycardia Increased dose of Cardizem -Maintain k>4.0 and Mg>2.0 -Antibiotics as per infectious disease Lasix as needed Consultation Date/Type/Reason Admit Date/Time Aug 29, 2018 at 07:31 Initial Consult Date Type of Consult Cardiology Date/Time of Note DATE: 08/31/18 TIME: 13:22 24 HR Interval Summary Free Text/Dictation Patient seen and examined Exam/Review of Systems Vital Signs Vitals Vital Signs Date Temp Pulse Resp B/P (MAP) Pulse Ox O2 O2 Flow FiO2 Time Delivery Rate 08/31/18 97.4 108 20 117/75 92 11:59 (89) 08/31/18 Nasal 3.0 08:08 Cannula Intake and Output 08/30/18 08/30/18 08/31/18 1515:00 23:00 07:00 IntakeIntake Total 100 ml 803 ml OutputOutput Total 1000 ml 1550 ml BalanceBalance -900 ml -747 ml Exam Exam Sleeping, no apparent distress Constitutional: frail Head: normocephalic Respiratory: other (Coarse breath sounds bilaterally, no wheezing) Cardiovascular: irregular rhythm (S1-S2 heard) Gastrointestinal: soft, non-tender, bowel sounds Extremities: other (No significant edema) Labs Result Diagram: 08/31/18 0536 08/31/18 0536 Results 24hrs Laboratory Tests Test 08/31/18 05:36 White Blood Count 10.0 Red Blood Count 3.24 L Hemoglobin 9.3 L Hematocrit 29.9 L Mean Corpuscular Volume 92.3 Mean Corpuscular Hemoglobin 28.7 L Mean Corpuscular Hemoglobin Concent 31.1 L Red Cell Distribution Width 17.4 H Platelet Count 386 Mean Platelet Volume 9.3 Immature Granulocytes % 1.400 H Neutrophils % 83.6 H Lymphocytes % 6.6 L Monocytes % 7.2 Eosinophils % 1.0 Basophils % 0.2 Nucleated Red Blood Cells % 0.0 Immature Granulocytes # 0.140 H Neutrophils # 8.4 H Lymphocytes # 0.7 L Monocytes # 0.7 Eosinophils # 0.1 Basophils # 0.0 Nucleated Red Blood Cells # 0.0 Sodium Level 147 H Potassium Level 3.6 Chloride Level 113 H Carbon Dioxide Level 28 Anion Gap 6 Blood Urea Nitrogen 23 H Creatinine 0.52 L Est Glomerular Filtrat Rate mL/min > 60 Glucose Level 153 Calcium Level 8.6 Medications Medications Current Medications IV Flush (NS 3 ml) 3 ml PER PROTOCOL IV ; Start 08/28/18 at 00:00 Ondansetron HCl (Zofran Inj) 4 mg Q6H PRN IV NAUSEA/VOMITING; Start 08/28/18 at 00:00 Acetaminophen (Tylenol Tab) 650 mg Q6H PRN PO .PAIN 1-3 OR TEMP; Start 08/28/18 at 00:00 Amiodarone HCl (Cordarone) 200 mg BID PO Last administered on 08/31/18 08:34; Admin Dose 200 MG; Start 08/28/18 at 00:00 Collagenase (Santyl) 1 applic DAILY TOP Last administered on 08/31/18 08:31; Admin Dose 1 APPLIC; Start 08/28/18 at 09:00 Ipratropium [place] (Atrovent 0.02% (Neb)) 0.5 mg Q6H RESP THERAPY PRN INH SHORTNESS OF BREATH; Start 08/28/18 at 00:00 Lansoprazole (Prevacid) 30 mg DAILY@0600 PO Last administered on 08/31/18 06:07; Admin Dose 30 MG; Start 08/28/18 at 06:00 Levalbuterol (Xopenex Hfa) 1 puff Q4H RESP THERAPY PRN INH WHEEZING AND SOB; Start 08/28/18 at 00:00 Miscellaneous Information (Pending Santyl Order For Wound Care) This patient dugan... PRN PRN XX WOUND CARE; Start 08/28/18 at 19:00 Multivitamins (Multivitamin) 30 ml DAILY GTB Last administered on 08/31/18 08:31; Admin Dose 30 ML; Start 08/30/18 at 09:00 Ascorbic Acid (Vitamin C) 500 mg DAILY GTB Last administered on 08/31/18 08:30; Admin Dose 500 MG; Start 08/30/18 at 09:00 Diltiazem HCl (Cardizem) 30 mg Q6 PO Last administered on 08/31/18at 11:47; Admin Dose 30 MG; Start 08/30/18 at 00:00 Meropenem/Sodium Chloride 50 ml @ 100 mls/hr Q12 IVPB Last administered on 08/31/18at 08:31; Admin Dose 100 MLS/HR; Start 08/30/18 at 11:50 Charan Cottrell DO Aug 31, 2018 13:23
[2018-08-31] MEDS ORDERED: POTASSIUM CHLORIDE 20 MEQ POWDER FOR ORAL SOLN JT ONE (13:30)
[2018-08-31] MEDS ORDERED: DILTIAZEM 30 MG TAB PO SCH (14:00)
[2018-08-31 15:40] VITALS: BP 102/71; PULSE 100; RESP 20
[2018-08-31 19:17] VITALS: BP 114/75; PULSE 105; RESP 18
[2018-09-01 00:02] VITALS: BP 121/67; PULSE 106; RESP 18
[2018-09-01 04:00] VITALS: BP 119/70; PULSE 114; RESP 18
[2018-09-01] MEDS: LANSOPRAZOLE 30 MG CAP PO SCH (05:08)
[2018-09-01] MEDS: DILTIAZEM 30 MG TAB PO SCH ×3 (05:10→21:15)
[2018-09-01 07:20] VITALS: BP 117/70; PULSE 105; RESP 18
[2018-09-01] MEDS: BALSAM PERU/CASTOR OIL 60 GM TUBE TOP SCH ×2 (08:44→21:16)
[2018-09-01] MEDS: COLLAGENASE 30 GM TUBE TOP SCH (08:44)
[2018-09-01] MEDS: ASCORBIC ACID 500 MG TAB GTB SCH (08:45)
[2018-09-01] MEDS: MEROPENEM 1 GM/50ML(PMX) 50 ML IVPB SCH ×2 (08:45→21:15)
[2018-09-01] MEDS: AMIODARONE 200 MG TAB PO SCH ×2 (08:46→21:16)
[2018-09-01] MEDS: MULTIVITAMINS 30 ML CUP GTB SCH (08:46)
[2018-09-01 11:10] VITALS: BP 118/87; PULSE 106; RESP 18
--- NOTE | 2018-09-01 14:11 | CONS ---
Assessment/Plan Assessment/Plan Hospital Course (Demo Recall) This is a 72-year-old man well-known to our service who was recently transferred from [facility] to the floor secondary to rapid atrial fibrillation. Patient is being seen by cardiology. He looks comfortable in no distress and afebrile. WBC today 10.3 platelets 382 neutrophils 79 BUN 21 creatinine 0.51 Blood culture on admission grew bacillus species. Repeat blood culture yesterday growing gram-negative rods. Indwelling's: PEG, status post vancomycin Antimicrobials: Meropenem Physical examination: Fragile elderly man who is in no distress. Head atraumatic normocephalic neck is supple chest rise symmetrical breath sounds diminished bases. Heart: S1-S2. Abdomen soft bowel sounds present. Extremities without cyanosis. Skin: Patient has a large unstageable sacral woun d Assessment: 1. Gram-negative zeinab bacteremia possibly secondary to urinary tract infection versus sacral decub 2. Unstageable sacral decubitus ulcer 3. Urinary tract infection per urinalysis 4. C. difficile colitis 5. History of MRSA endocarditis, treated 6. History of CVA with chronic encephalopathy 7. Dysphagia status post PEG 8. Atrial fibrillation status post RVR Plan: Patient is clinically stable, we will continue him on meropenem, send urine culture, add oral vancomycin, consider surgical evaluation for possible debridement and await for final blood cultures Consultation Date/Type/Reason Admit Date/Time Aug 29, 2018 at 07:31 Initial Consult Date Type of Consult id Date/Time of Note DATE: 09/01/18 TIME: 14:08 Exam/Review of Systems Exam Vitals Vital Signs Date Temp Pulse Resp B/P (MAP) Pulse Ox O2 O2 Flow FiO2 Time Delivery Rate 09/01/18 98.4 106 18 118/87 92 Nasal 11:10 (97) Cannula 09/01/18 3.0 07:49 Intake and Output 08/31/18 08/31/18 09/01/18 1515:00 23:00 07:00 IntakeIntake Total 1050 ml 1000 ml OutputOutput Total 800 ml 300 ml BalanceBalance 1050 ml 200 ml -300 ml Results Result Diagram: 09/01/18 0537 09/01/18 0536 Results 24hrs Laboratory Tests Test 09/01/18 05:36 09/01/18 05:37 Sodium Level 146 H Potassium Level 4.2 Chloride Level 111 H Carbon Dioxide Level 27 Anion Gap 8 Blood Urea Nitrogen 21 H Creatinine 0.51 L Est Glomerular Filtrat Rate mL/min > 60 Glucose Level 111 # Calcium Level 8.9 White Blood Count 10.3 Red Blood Count 3.59 L Hemoglobin 10.1 L Hematocrit 33.4 L Mean Corpuscular Volume 93.0 Mean Corpuscular Hemoglobin 28.1 L Mean Corpuscular Hemoglobin Concent 30.2 L Red Cell Distribution Width 17.7 H Platelet Count 382 Mean Platelet Volume 9.2 Immature Granulocytes % 1.600 H Neutrophils % 79.0 H Lymphocytes % 10.5 L Monocytes % 7.3 Eosinophils % 1.3 Basophils % 0.3 Nucleated Red Blood Cells % 0.0 Immature Granulocytes # 0.160 H Neutrophils # 8.2 H Lymphocytes # 1.1 Monocytes # 0.8 Eosinophils # 0.1 Basophils # 0.0 Nucleated Red Blood Cells # 0.0 Medications Medication Current Medications IV Flush (NS 3 ml) 3 ml PER PROTOCOL IV ; Start 08/28/18 at 00:00 Ondansetron HCl (Zofran Inj) 4 mg Q6H PRN IV NAUSEA/VOMITING; Start 08/28/18 at 00:00 Acetaminophen (Tylenol Tab) 650 mg Q6H PRN PO .PAIN 1-3 OR TEMP; Start 08/28/18 at 00:00 Amiodarone HCl (Cordarone) 200 mg BID PO Last administered on 09/01/18at 08:46; Admin Dose 200 MG; Start 08/28/18 at 00:00 Collagenase (Santyl) 1 applic DAILY TOP Last administered on 09/01/18at 08:44; Admin Dose 1 APPLIC; Start 08/28/18 at 09:00 Ipratropium [place] (Atrovent 0.02% (Neb)) 0.5 mg Q6H RESP THERAPY PRN INH SH ORTNESS OF BREATH; Start 08/28/18 at 00:00 Lansoprazole (Prevacid) 30 mg DAILY@0600 PO Last administered on 09/01/18at 05:08; Admin Dose 30 MG; Start 08/28/18 at 06:00 Levalbuterol (Xopenex Hfa) 1 puff Q4H RESP THERAPY PRN INH WHEEZING AND SOB; Start 08/28/18 at 00:00 Miscellaneous Information (Pending Santyl Order For Wound Care) This patient dugan... PRN PRN XX WOUND CARE; Start 08/28/18 at 19:00 Multivitamins (Multivitamin) 30 ml DAILY GTB Last administered on 09/01/18at 08:46; Admin Dose 30 ML; Start 08/30/18 at 09:00 Ascorbic Acid (Vitamin C) 500 mg DAILY GTB Last administered on 09/01/18at 08: 45; Admin Dose 500 MG; Start 08/30/18 at 09:00 Meropenem/Sodium Chloride 50 ml @ 100 mls/hr Q12 IVPB Last administered on 09/01/18 08:45; Admin Dose 100 MLS/HR; Start 08/30/18 at 11:50 Diltiazem HCl (Cardizem) 60 mg Q8 PO Last administered on 09/01/18at 05:10; Admin Dose 60 MG; Start 08/31/18 at 22:00 SANDER WILL NP Sep 01, 2018 14:11
[2018-09-01 15:20] VITALS: BP 130/58; PULSE 77; RESP 19
--- NOTE | 2018-09-01 16:58 | PN ---
Date/Time of Note Date/Time of Note DATE: 09/01/18 TIME: 16:47 Assessment/Plan VTE Prophylaxis Risk score (from [facility])>0 risk: 6 SCD applied (from [facility]): Yes Pharmacological prophylaxis: NA/contraindicated Pharm contraindication: low risk/ambulating Lines/Catheters IV [facility]ter Type [facility]from [facility] [place] Urinary Cath still in place: No Assessment/Plan Assessment/Plan 72-year-old male with atrial fibrillation, multifocal infarcts, dementia, chronic encephalopathy, psychosis/schizophrenia, MV endocarditis, dysphagia with G-tube who presents with: 1. Atrial fibrillation with RVR: Now rate controlled - Currently on PO amiodarone and diltiazem - Appreciate cardiology's help 2. Healthcare associated pneumonia: X-ray shows worsening consolidation -Continue IV meropenem 3. Bacteremia - Blood culture growing gram positive rods which are usually contaminants. - Repeat culture growing gram negative rods - ID consulted. On meropenem. - Will consider surgical consult for sacral wound. 4. Dysphagia with G-tube - Tube feeds 5. History of recent MV endocarditis - s/p course of vancomycin, completed 08/27. Result Diagram: 09/01/18 0537 09/01/18 0536 Subjective 24 Hr Interval Summary Free Text/Dictation No acute overnight events. Patient more awake and alert this morning. Exam/Review of Systems Exam Vitals Vital Signs Date Temp Pulse Resp B/P (MAP) Pulse Ox O2 O2 Flow FiO2 Time Delivery Rate 09/01/18 98.2 77 19 130/58 98 Nasal 15:20 (82) Cannula 09/01/18 3.0 07:49 Intake and Output 08/31/18 08/31/18 09/01/18 1515:00 23:00 07:00 IntakeIntake Total 1050 ml 1000 ml OutputOutput Total 800 ml 300 ml BalanceBalance 1050 ml 200 ml -300 ml Exam General: Lying in bed, on nasal cannula. Head: Normocephalic, atraumatic. Eyes: Pupils equally reactive, EOM intact ENT: Moist mucous membranes Neck: Supple, no lymphadenopathy Respiratory: Slightly distant breath sounds bilaterally Cardiovascular: No rubs or gallops Abdominal: Soft, non-tender, non-distended, no peritoneal sign MSK: No lower extremity bilaterally. Severe leg muscle atrophy. Neuro: Awake, alert, oriented to name, location, not date. Results Results 24hrs Laboratory Tests Test 09/01/18 05:36 09/01/18 05:37 Sodium Level 146 H Potassium Level 4.2 Chloride Level 111 H Carbon Dioxide Level 27 Anion Gap 8 Blood Urea Nitrogen 21 H Creatinine 0.51 L Est Glomerular Filtrat Rate mL/min > 60 Glucose Level 111 # Calcium Level 8.9 White Blood Count 10.3 Red Blood Count 3.59 L Hemoglobin 10.1 L Hematocrit 33.4 L Mean Corpuscular Volume 93.0 Mean Corpuscular Hemoglobin 28.1 L Mean Corpuscular Hemoglobin Concent 30.2 L Red Cell Distribution Width 17.7 H Platelet Count 382 Mean Platelet Volume 9.2 Immature Granulocytes % 1.600 H Neutrophils % 79.0 H Lymphocytes % 10.5 L Monocytes % 7.3 Eosinophils % 1.3 Basophils % 0.3 Nucleated Red Blood Cells % 0.0 Immature Granulocytes # 0.160 H Neutrophils # 8.2 H Lymphocytes # 1.1 Monocytes # 0.8 Eosinophils # 0.1 Basophils # 0.0 Nucleated Red Blood Cells # 0.0 Medications Medication Current Medications IV Flush (NS 3 ml) 3 ml PER PROTOCOL IV ; Start 08/28/18 at 00:00 Ondansetron HCl (Zofran Inj) 4 mg Q6H PRN IV NAUSEA/VOMITING; Start 08/28/18 at 00:00 Acetaminophen (Tylenol Tab) 650 mg Q6H PRN PO .PAIN 1-3 OR TEMP; Start 08/28/18 at 00:00 Amiodarone HCl (Cordarone) 200 mg BID PO Last administered on 09/01/18at 08:46; Admin Dose 200 MG; Start 08/28/18 at 00:00 Collagenase (Santyl) 1 applic DAILY TOP Last administered on 09/01/18at 08:44; Admin Dose 1 APPLIC; Start 08/28/18 at 09:00 Ipratropium [place] (Atrovent 0.02% (Neb)) 0.5 mg Q6H RESP THERAPY PRN INH SHORTNESS OF BREATH; Start 08/28/18 at 00:00 Lansoprazole (Prevacid) 30 mg DAILY@0600 PO Last administered on 09/01/18at 05:0 8; Admin Dose 30 MG; Start 08/28/18 at 06:00 Levalbuterol (Xopenex Hfa) 1 puff Q4H RESP THERAPY PRN INH WHEEZING AND SOB; Start 08/28/18 at 00:00 Miscellaneous Information (Pending [facility] Order For Wound Care) This patient dugan... PRN PRN XX WOUND CARE; Start 08/28/18 at 19:00 Multivitamins (Multivitamin) 30 ml DAILY GTB Last administered on 09/01/18at 08:46; Admin Dose 30 ML; Start 08/30/18 at 09:00 Ascorbic Acid (Vitamin C) 500 mg DAILY GTB Last administered on 09/01/18at 08:45; Admin Dose 500 MG; Start 08/30/18 at 09:00 Meropenem/Sodium Chloride 50 ml @ 100 mls/hr Q12 IVPB Last administered on 09/01/18at 08:45; Admin Dose 100 MLS/HR; Start 08/30/18 at 11:50 Diltiazem HCl (Cardizem) 60 mg Q8 PO Last administered on 09/01/18at 14:14; Admin Dose 60 MG; Start 08/31/18 at 22:00 Vancomycin HCl (Vancomycin Oral Syringe) 125 mg Q6 PO ; Start 09/01/18 at 18:00 RACIEL HUMPHREY MD Sep 01, 2018 16:57
[2018-09-01] MEDS: VANCOMYCIN HCL 250 MG/5ML POSYG PO SCH ×2 (17:18→23:08)
--- NOTE | 2018-09-01 18:04 | CONS ---
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0 07:49 Intake and Output 08/31/18 08/31/18 09/01/18 1515:00 23:00 07:00 IntakeIntake Total 1050 ml 1000 ml OutputOutput Total 800 ml 300 ml BalanceBalance 1050 ml 200 ml -300 ml Exam Exam Sleeping, no apparent distress Head: normocephalic Respiratory: other (Coarse breath sounds bilaterally, no wheezing) Cardiovascular: irregular rhythm (S1-S2 heard) Gastrointestinal: soft, non-tender, bowel sounds Extremities: other (No edema) Labs Result Diagram: 09/01/18 0537 09/01/18 0536 Results 24hrs Laboratory Tests Test 09/01/18 05:36 09/01/18 05:37 Sodium Level 146 H Potassium Level 4.2 Chloride Level 111 H Carbon Dioxide Level 27 Anion Gap 8 Blood Urea Nitrogen 21 H Creatinine 0.51 L Est Glomerular Filtrat Rate mL/min > 60 Glucose Level 111 # Calcium Level 8.9 White Blood Count 10.3 Red Blood Count 3.59 L Hemoglobin 10.1 L Hematocrit 33.4 L Mean Corpuscular Volume 93.0 Mean Corpuscular Hemoglobin 28.1 L Mean Corpuscular Hemoglobin Concent 30.2 L Red Cell Distribution Width 17.7 H Platelet Count 382 Mean Platelet Volume 9.2 Immature Granulocytes % 1.600 H Neutrophils % 79.0 H Lymphocytes % 10.5 L Monocytes % 7.3 Eosinophils % 1.3 Basophils % 0.3 Nucleated Red Blood Cells % 0.0 Immature Granulocytes # 0.160 H Neutrophils # 8.2 H Lymphocytes # 1.1 Monocytes # 0.8 Eosinophils # 0.1 Basophils # 0.0 Nucleated Red Blood Cells # 0.0 Medications Medications Current Medications IV Flush (NS 3 ml) 3 ml PER PROTOCOL IV ; Start 08/28/18 at 00:00 Ondansetron HCl (Zofran Inj) 4 mg Q6H PRN IV NAUSEA/VOMITING; Start 08/28/18 at 00:00 Acetaminophen (Tylenol Tab) 650 mg Q6H PRN PO .PAIN 1-3 OR TEMP; Start 08/28/18 at 00:00 Amiodarone HCl (Cordarone) 200 mg BID PO Last administered on 09/01/18 08:46; Admin Dose 200 MG; Start 08/28/18 at 00:00 Collagenase (Santyl) 1 applic DAILY TOP Last administered on 09/01/18at 08:44; Admin Dose 1 APPLIC; Start 08/28/18 at 09:00 Ipratropium [place] (Atrovent 0.02% (Neb)) 0.5 mg Q6H RESP THERAPY PRN INH SHORTNESS OF BREATH; Start 08/28/18 at 00:00 Lansoprazole (Prevacid) 30 mg DAILY@0600 PO Last administered on 09/01/18at 05:08; Admin Dose 30 MG; Start 08/28/18 at 06:00 Levalbuterol (Xopenex Hfa) 1 puff Q4H RESP THERAPY PRN INH WHEEZING AND SOB; Start 08/28/18 at 00:00 Miscellaneous Information (Pending Santyl Order For Wound Care) This patient dugan... PRN PRN XX WOUND CARE; Start 08/28/18 at 19:00 Multivitamins (Multivitamin) 30 ml DAILY GTB Last administered on 09/01/18 08:46; Admin Dose 30 ML; Start 08/30/18 at 09:00 Ascorbic Acid (Vitamin C) 500 mg DAILY GTB Last administered on 09/01/18 08:45; Admin Dose 500 MG; Start 08/30/18 at 09:00 Meropenem/Sodium Chloride 50 ml @ 100 mls/hr Q12 IVPB Last administered on 09/01/18 08:45; Admin Dose 100 MLS/HR; Start 08/30/18 at 11:50 Diltiazem HCl (Cardizem) 60 mg Q8 PO Last administered on 09/01/18at 14:14; Admin Dose 60 MG; Start 08/31/18 at 22:00 Vancomycin HCl (Vancomycin Oral Syringe) 125 mg Q6 PO Last administered on 09/01/18at 17:18; Admin Dose 125 MG; Start 09/01/18 at 18:00 Charan Cottrell DO Sep 01, 2018 18:04
[2018-09-01 20:27] VITALS: BP 116/77; PULSE 100; RESP 20
[2018-09-02] VITALS (7 sets, daily range): BP systolic 110–123; BP diastolic 62–81; PULSE 78–112; RESP 17–20
[2018-09-02] MEDS: LANSOPRAZOLE 30 MG CAP PO SCH (05:10)
[2018-09-02] MEDS: VANCOMYCIN HCL 250 MG/5ML POSYG PO SCH ×3 (05:10→18:29)
[2018-09-02] MEDS: DILTIAZEM 30 MG TAB PO SCH ×3 (05:11→21:34)
[2018-09-02] MEDS: MULTIVITAMINS 30 ML CUP GTB SCH (09:16)
[2018-09-02] MEDS: ASCORBIC ACID 500 MG TAB GTB SCH (09:16)
[2018-09-02] MEDS: MEROPENEM 1 GM/50ML(PMX) 50 ML IVPB SCH ×2 (09:17→21:33)
[2018-09-02] MEDS: AMIODARONE 200 MG TAB PO SCH ×2 (09:17→21:34)
[2018-09-02] MEDS: BALSAM PERU/CASTOR OIL 60 GM TUBE TOP SCH ×2 (09:18→21:34)
[2018-09-02] MEDS: COLLAGENASE 30 GM TUBE TOP SCH (09:18)
--- NOTE | 2018-09-02 11:29 | CONS ---
Assessment/Plan Assessment/Plan Hospital Course (Demo Recall) All noted, no acute events, no fevers, nad Blood culture on admission grew bacillus species. Repeat blood culture growing gram-negative rods. Indwelling's: PEG Antimicrobials: Meropenem PO Vanco Physical examination: Fragile elderly man who is in no distress. Head atraumatic normocephalic neck is supple chest rise symmetrical breath sounds diminished bases. Heart: S1-S2. Abdomen soft bowel sounds present. Extremities without cyanosis. Skin: Patient has a large unstageable sacral wound Assessment: 1. Gram-negative zeinab bacteremia possibly secondary to urinary tract infection versus sacral decub vs pulmonary 2. Unstageable sacral decubitus ulcer 3. Urinary tract infection per urinalysis 4. C. difficile colitis 5. History of MRSA endocarditis, treated 6. History of CVA with chronic encephalopathy 7. Dysphagia status post PEG 8. Atrial fibrillation status post RVR Plan: Stable, pending final cx, pending repeat C dif, continue abx, aspiration precautions, local wound care Consultation Date/Type/Reason Admit Date/Time Aug 29, 2018 at 07:31 Initial Consult Date Type of Consult id Date/Time of Note DATE: 09/02/18 TIME: 11:28 Exam/Review of Systems Exam Vitals Vital Signs Date Temp Pulse Resp B/P (MAP) Pulse Ox O2 O2 Flow FiO2 Time Delivery Rate 09/02/18 97.8 78 19 118/76 96 08:12 (90) 09/02/18 Nasal 04:11 Cannula 09/01/18 3.0 20:20 Intake and Output 09/01/18 09/01/18 09/02/18 1515:00 23:00 07:00 IntakeIntake Total 980 ml OutputOutput Total 550 ml 400 ml BalanceBalance -550 ml 580 ml Results Result Diagram: 09/02/18 0508 09/02/18 0508 Results 24hrs Laboratory Tests Test 09/02/18 05:08 White Blood Count 9.8 Red Blood Count 3.28 L Hemoglobin 9.4 L Hematocrit 31.0 L Mean Corpuscular Volume 94.5 Mean Corpuscular Hemoglobin 28.7 L Mean Corpuscular Hemoglobin Concent 30.3 L Red Cell Distribution Width 17.6 H Platelet Count 327 Mean Platelet Volume 9.2 Immature Granulocytes % 1.900 H Neutrophils % 76.7 Lymphocytes % 10.1 L Monocytes % 6.4 Eosinophils % 4.3 Basophils % 0.6 Nucleated Red Blood Cells % 0.0 Immature Granulocytes # 0.190 H Neutrophils # 7.5 Lymphocytes # 1.0 Monocytes # 0.6 Eosinophils # 0.4 Basophils # 0.1 Nucleated Red Blood Cells # 0.0 Sodium Level 144 Potassium Level 4.1 Chloride Level 109 Carbon Dioxide Level 28 Anion Gap 7 Blood Urea Nitrogen 21 H Creatinine 0.53 L Est Glomerular Filtrat Rate mL/min > 60 Glucose Level 130 Calcium Level 8.9 Medications Medication Current Medications IV Flush (NS 3 ml) 3 ml PER PROTOCOL IV ; Start 08/28/18 at 00:00 Ondansetron HCl (Zofran Inj) 4 mg Q6H PRN IV NAUSEA/VOMITING; Start 08/28/18 at 00:00 Acetaminophen (Tylenol Tab) 650 mg Q6H PRN PO .PAIN 1-3 OR TEMP; Start 08/28/18 at 00:00 Amiodarone HCl (Cordarone) 200 mg BID PO Last administered on 09/02/18at 09:17; Admin Dose 200 MG; Start 08/28/18 at 00:00 Collagenase (Santyl) 1 applic DAILY TOP Last administered on 09/02/18at 09:18; Admin Dose 1 APPLIC; Start 08/28/18 at 09:00 Ipratropium [place] (Atrovent 0.02% (Neb)) 0.5 mg Q6H RESP THERAPY PRN INH SHORTNESS OF BREATH; Start 08/28/18 at 00:00 Lansoprazole (Prevacid) 30 mg DAILY@0600 PO Last administered on 09/02/18at 05: 10; Admin Dose 30 MG; Start 08/28/18 at 06:00 Levalbuterol (Xopenex Hfa) 1 puff Q4H RESP THERAPY PRN INH WHEEZING AND SOB; Start 08/28/18 at 00:00 Miscellaneous Information (Pending Santyl Order For Wound Care) This patient dugan... PRN PRN XX WOUND CARE; Start 08/28/18 at 19:00 Multivitamins (Multivitamin) 30 ml DAILY GTB Last administered on 09/02/18at 09:16; Admin Dose 30 ML; Start 08/30/18 at 09:00 Ascorbic Acid (Vitamin C) 500 mg DAILY GTB Last administered on 09/02/18at 09:16; Admin Dose 500 MG; Start 08/30/18 at 09:00 Meropenem/Sodium Chloride 50 ml @ 100 mls/hr Q12 IVPB Last administered on 09/02/18at 09:17; Admin Dose 100 MLS/HR; Start 08/30/18 at 11:50 Diltiazem HCl (Cardizem) 60 mg Q8 PO Last administered on 09/02/18at 05:11; Admin Dose 60 MG; Start 08/31/18 at 22:00 Vancomycin HCl (Vancomycin Oral Syringe) 125 mg Q6 PO Last administered on 09/02/18at 05:10; Admin Dose 125 MG; Start 09/01/18 at 18:00 SANDER WILL NP Sep 02, 2018 11:29
--- NOTE | 2018-09-02 12:30 | CONS ---
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 Encephalopathy CVA, hemorrhagic History of nonsustained ventricular tachycardia Continue Cardizem and titrate as needed Antibiotics as per infectious disease Lasix as needed Consultation Date/Type/Reason Admit Date/Time Aug 29, 2018 at 07:31 Initial Consult Date Type of Consult Cardiology Date/Time of Note DATE: 09/02/18 TIME: 12:29 24 HR Interval Summary Free Text/Dictation No shortness of breath Exam/Review of Systems Vital Signs Vitals Vital Signs Date Temp Pulse Resp B/P (MAP) Pulse Ox O2 O2 Flow FiO2 Time Delivery Rate 09/02/18 97.8 79 19 115/62 96 11:38 (79) 09/02/18 Nasal 04:11 Cannula 09/01/18 3.0 20:20 Intake and Output 09/01/18 09/01/18 09/02/18 1515:00 23:00 07:00 IntakeIntake Total 980 ml OutputOutput Total 550 ml 400 ml BalanceBalance -550 ml 580 ml Exam Constitutional: alert (Answer some questions slowly, no apparent distress) Head: normocephalic Respiratory: other (Coarse breath sounds bilaterally, no wheezing) Cardiovascular: irregular rhythm (S1-S2 heard) Gastrointestinal: soft, non-tender, bowel sounds Extremities: other (No significant edema) Labs Result Diagram: 09/02/18 0508 09/02/18 0508 Results 24hrs Laboratory Tests Test 09/02/18 05:08 White Blood Count 9.8 Red Blood Count 3.28 L Hemoglobin 9.4 L Hematocrit 31.0 L Mean Corpuscular Volume 94.5 Mean Corpuscular Hemoglobin 28.7 L Mean Corpuscular Hemoglobin Concent 30.3 L Red Cell Distribution Width 17.6 H Platelet Count 327 Mean Platelet Volume 9.2 Immature Granulocytes % 1.900 H Neutrophils % 76.7 Lymphocytes % 10.1 L Monocytes % 6.4 Eosinophils % 4.3 Basophils % 0.6 Nucleated Red Blood Cells % 0.0 Immature Granulocytes # 0.190 H Neutrophils # 7.5 Lymphocytes # 1.0 Monocytes # 0.6 Eosinophils # 0.4 Basophils # 0.1 Nucleated Red Blood Cells # 0.0 Sodium Level 144 Potassium Level 4.1 Chloride Level 109 Carbon Dioxide Level 28 Anion Gap 7 Blood Urea Nitrogen 21 H Creatinine 0.53 L Est Glomerular Filtrat Rate mL/min > 60 Glucose Level 130 Calcium Level 8.9 Medications Medications Current Medications IV Flush (NS 3 ml) 3 ml PER PROTOCOL IV ; Start 08/28/18 at 00:00 Ondansetron HCl (Zofran Inj) 4 mg Q6H PRN IV NAUSEA/VOMITING; Start 08/28/18 at 00:00 Acetaminophen (Tylenol Tab) 650 mg Q6H PRN PO .PAIN 1-3 OR TEMP; Start 08/28/18 at 00:00 Amiodarone HCl (Cordarone) 200 mg BID PO Last administered on 09/02/18 09:17; Admin Dose 200 MG; Start 08/28/18 at 00:00 Collagenase (Santyl) 1 applic DAILY TOP Last administered on 09/02/18 09:18; Admin Dose 1 APPLIC; Start 08/28/18 at 09:00 Ipratropium [place] (Atrovent 0.02% (Neb)) 0.5 mg Q6H RESP THERAPY PRN INH SHORTNESS OF BREATH; Start 08/28/18 at 00:00 Lansoprazole (Prevacid) 30 mg DAILY@0600 PO Last administered on 09/02/18at 05:10; Admin Dose 30 MG; Start 08/28/18 at 06:00 Levalbuterol (Xopenex Hfa) 1 puff Q4H RESP THERAPY PRN INH WHEEZING AND SOB; Start 08/28/18 at 00:00 Miscellaneous Information (Pending Santyl Order For Wound Care) This patient dugan... PRN PRN XX WOUND CARE; Start 08/28/18 at 19:00 Multivitamins (Multivitamin) 30 ml DAILY GTB Last administered on 09/02/18 09:16; Admin Dose 30 ML; Start 08/30/18 at 09:00 Ascorbic Acid (Vitamin C) 500 mg DAILY GTB Last administered on 09/02/18 09:16; Admin Dose 500 MG; Start 08/30/18 at 09:00 Meropenem/Sodium Chloride 50 ml @ 100 mls/hr Q12 IVPB Last administered on 09/02/18 09:17; Admin Dose 100 MLS/HR; Start 08/30/18 at 11:50 Diltiazem HCl (Cardizem) 60 mg Q8 PO Last administered on 09/02/18at 05:11; Admin Dose 60 MG; Start 08/31/18 at 22:00 Vancomycin HCl (Vancomycin Oral Syringe) 125 mg Q6 PO Last administered on 09/02/18at 05:10; Admin Dose 125 MG; Start 09/01/18 at 18:00 Charan Cottrell DO Sep 02, 2018 12:30
--- NOTE | 2018-09-02 14:07 | PN ---
Date/Time of Note Date/Time of Note DATE: 09/02/18 TIME: 13:58 Assessment/Plan VTE Prophylaxis Risk score (from [facility])>0 risk: 5 SCD applied (from [facility]): Yes Pharmacological prophylaxis: NA/contraindicated Pharm contraindication: low risk/ambulating Lines/Catheters [facility] Saline Lock Urinary Cath still in place: No Assessment/Plan Assessment/Plan 72-year-old male with atrial fibrillation, multifocal infarcts, dementia, chronic encephalopathy, psychosis/schizophrenia, MV endocarditis, dysphagia with G-tube who presents with: 1. Atrial fibrillation with RVR: Now rate controlled - Currently on PO amiodarone and diltiazem - Appreciate cardiology's help 2. Healthcare associated pneumonia: X-ray shows worsening consolidation -Continue IV meropenem 3. Bacteremia - Blood culture growing gram positive rods which are usually contaminants. - Repeat culture growing gram negative rods - ID consulted. On meropenem and vancomycin. - Will consider surgical consult for sacral wound. 4. Dysphagia with G-tube - Tube feeds 5. History of recent MV endocarditis - s/p course of vancomycin, completed 08/27. 6. Stage III sacral decub ulcer - On empiric vanco and meropenem as above. - I consulted Dr. Diamond to evaluate the wound for possible debridement and reconstruction, he may see the patient Wednesday. Result Diagram: 09/02/18 0508 09/02/18 0508 Subjective 24 Hr Interval Summary Free Text/Dictation No acute overnight events. Patient less awake today. Exam/Review of Systems Exam Vitals Vital Signs Date Temp Pulse Resp B/P (MAP) Pulse Ox O2 O2 Flow FiO2 Time Delivery Rate 09/02/18 97.8 79 19 115/62 96 11:38 (79) 09/02/18 Nasal 04:11 Cannula 09/01/18 3.0 20:20 Intake and Output 09/01/18 09/01/18 09/02/18 1515:00 23:00 07:00 IntakeIntake Total 980 ml OutputOutput Total 550 ml 400 ml BalanceBalance -550 ml 580 ml Exam General: Lying in bed, on nasal cannula. Head: Normocephalic, atraumatic. Eyes: Pupils equally reactive, EOM intact ENT: Moist mucous membranes Neck: Supple, no lymphadenopathy Respiratory: Slightly distant breath sounds bilaterally Cardiovascular: No rubs or gallops Abdominal: Soft, non-tender, non-distended, no peritoneal sign MSK: No lower extremity bilaterally. Severe leg muscle atrophy. Neuro: Awake, alert, oriented to name, location, not date. Results Results 24hrs Laboratory Tests Test 09/02/18 05:08 White Blood Count 9.8 Red Blood Count 3.28 L Hemoglobin 9.4 L Hematocrit 31.0 L Mean Corpuscular Volume 94.5 Mean Corpuscular Hemoglobin 28.7 L Mean Corpuscular Hemoglobin Concent 30.3 L Red Cell Distribution Width 17.6 H Platelet Count 327 Mean Platelet Volume 9.2 Immature Granulocytes % 1.900 H Neutrophils % 76.7 Lymphocytes % 10.1 L Monocytes % 6.4 Eosinophils % 4.3 Basophils % 0.6 Nucleated Red Blood Cells % 0.0 Immature Granulocytes # 0.190 H Neutrophils # 7.5 Lymphocytes # 1.0 Monocytes # 0.6 Eosinophils # 0.4 Basophils # 0.1 Nucleated Red Blood Cells # 0.0 Sodium Level 144 Potassium Level 4.1 Chloride Level 109 Carbon Dioxide Level 28 Anion Gap 7 Blood Urea Nitrogen 21 H Creatinine 0.53 L Est Glomerular Filtrat Rate mL/min > 60 Glucose Level 130 Calcium Level 8.9 Medications Medication Current Medications IV Flush (NS 3 ml) 3 ml PER PROTOCOL IV ; Start 08/28/18 at 00:00 Ondansetron HCl (Zofran Inj) 4 mg Q6H PRN IV NAUSEA/VOMITING; Start 08/28/18 at 00:00 Acetaminophen (Tylenol Tab) 650 mg Q6H PRN PO .PAIN 1-3 OR TEMP; Start 08/28/18 at 00:00 Amiodarone HCl (Cordarone) 200 mg BID PO Last administered on 09/02/18at 09:17; Admin Dose 200 MG; Start 08/28/18 at 00:00 Collagenase (Santyl) 1 applic DAILY TOP Last administered on 09/02/18at 09:18; Admin Dose 1 APPLIC; Start 08/28/18 at 09:00 Ipratropium [place] (Atrovent 0.02% (Neb)) 0.5 mg Q6H RESP THERAPY PRN INH SHORTNESS OF BREATH; Start 08/28/18 at 00:00 Lansoprazole (Prevacid) 30 mg DAILY@0600 PO Last administered on 09/02/18at 05:10; Admin Dose 30 MG; Start 08/28/18 at 06:00 Levalbuterol (Xopenex Hfa) 1 puff Q4H RESP THERAPY PRN INH WHEEZING AND SOB; Start 08/28/18 at 00:00 Miscellaneous Information (Pending Santyl Order For Wound Care) This patient dugan... PRN PRN XX WOUND CARE; Start 08/28/18 at 19:00 Multivitamins (Multivitamin) 30 ml DAILY GTB Last administered on 09/02/18 09:16; Admin Dose 30 ML; Start 08/30/18 at 09:00 Ascorbic Acid (Vitamin C) 500 mg DAILY GTB Last administered on 09/02/18 09:16; Admin Dose 500 MG; Start 08/30/18 at 09:00 Meropenem/Sodium Chloride 50 ml @ 100 mls/hr Q12 IVPB Last administered on 09/02/18 09:17; Admin Dose 100 MLS/HR; Start 08/30/18 at 11:50 Diltiazem HCl (Cardizem) 60 mg Q8 PO Last administered on 09/02/18 05:11; Admin Dose 60 MG; Start 08/31/18 at 22:00 Vancomycin HCl (Vancomycin Oral Syringe) 125 mg Q6 PO Last administered on 09/02/18 13:12; Admin Dose 125 MG; Start 09/01/18 at 18:00 RACIEL HUMPHREY MD Sep 02, 2018 14:07
[2018-09-03] VITALS: BP 114/72; PULSE 84; RESP 18
[2018-09-03] MEDS: VANCOMYCIN HCL 250 MG/5ML POSYG PO SCH ×4 (00:08→18:14)
[2018-09-03 04:00] VITALS: BP 119/83; PULSE 88; RESP 18
[2018-09-03] MEDS: DILTIAZEM 30 MG TAB PO SCH ×3 (06:13→22:00)
[2018-09-03] MEDS: LANSOPRAZOLE 30 MG CAP PO SCH (06:13)
[2018-09-03 07:50] VITALS: BP 122/78; PULSE 79; RESP 18
[2018-09-03] MEDS: COLLAGENASE 30 GM TUBE TOP SCH (09:00)
--- NOTE | 2018-09-03 09:27 | CONS ---
Assessment/Plan Assessment/Plan Hospital Course (Demo Recall) All noted, no acute events, no fevers Blood culture on admission grew bacillus species. Repeat blood culture growing MDR A.b Indwelling's: PEG Antimicrobials: Meropenem PO Vanco Physical examination: Fragile elderly man who is in no distress. Head atraumatic normocephalic neck is supple chest rise symmetrical breath sounds diminished bases. Heart: S1-S2. Abdomen soft bowel sounds present. Extremities without cyanosis. Skin: Patient has a large unstageable sacral wound Assessment: 1. MDR gram-negative zeinab bacteremia possibly secondary to urinary tract infection versus sacral decub vs pulmonary 2. Unstageable sacral decubitus ulcer 3. Urinary tract infection per urinalysis 4. Hx C. difficile colitis 5. History of MRSA endocarditis, treated 6. History of CVA with chronic encephalopathy 7. Dysphagia status post PEG 8. Atrial fibrillation status post RVR Plan: Change abx to IV Bactrim, monitor renal f-n, pt is at high risk for C dif relapse will keep on PO Vanco, f/u wound cx Consultation Date/Type/Reason Admit Date/Time Aug 29, 2018 at 07:31 Initial Consult Date Type of Consult id Date/Time of Note DATE: 09/03/18 TIME: 09:25 Exam/Review of Systems Exam Vitals Vital Signs Date Temp Pulse Resp B/P (MAP) Pulse Ox O2 O2 Flow FiO2 Time Delivery Rate 09/03/18 98.2 79 18 122/78 97 07:50 (93) 09/03/18 Nasal 04:00 Cannula 09/02/18 3.0 20:00 Intake and Output 09/02/18 09/02/18 09/03/18 1515:00 23:00 07:00 IntakeIntake Total 230 ml OutputOutput Total 1200 ml 150 ml BalanceBalance 230 ml -1200 ml -150 ml Results Result Diagram: 09/02/18 0508 09/02/18 0508 Medications Medication Current Medications IV Flush (NS 3 ml) 3 ml PER PROTOCOL IV ; Start 08/28/18 at 00:00 Ondansetron HCl (Zofran Inj) 4 mg Q6H PRN IV NAUSEA/VOMITING; Start 08/28/18 at 00:00 Acetaminophen (Tylenol Tab) 650 mg Q6H PRN PO .PAIN 1-3 OR TEMP; Start 08/28/18 at 00:00 Amiodarone HCl (Cordarone) 200 mg BID PO Last administered on 09/02/18 21:34; Admin Dose 200 MG; Start 08/28/18 at 00:00 Collagenase (Santyl) 1 applic DAILY TOP Last administered on 09/02/18 09:18; Admin Dose 1 APPLIC; Start 08/28/18 at 09:00 Ipratropium [place] (Atrovent 0.02% (Neb)) 0.5 mg Q6H RESP THERAPY PRN INH SHORTNESS OF BREATH; Start 08/28/18 at 00:00 Lansoprazole (Prevacid) 30 mg DAILY@0600 PO Last administered on 09/03/18 06:13; Admin Dose 30 MG; Start 08/28/18 at 06:00 Levalbuterol (Xopenex Hfa) 1 puff Q4H RESP THERAPY PRN INH WHEEZING AND SOB; Start 08/28/18 at 00:00 Miscellaneous Information (Pending Santyl Order For Wound Care) This patient dugan... PRN PRN XX WOUND CARE; Start 08/28/18 at 19:00 Multivitamins (Multivitamin) 30 ml DAILY GTB Last administered on 09/02/18 09:16; Admin Dose 30 ML; Start 08/30/18 at 09:00 Ascorbic Acid (Vitamin C) 500 mg DAILY GTB Last administered on 09/02/18 09:16; Admin Dose 500 MG; Start 08/30/18 at 09:00 Meropenem/Sodium Chloride 50 ml @ 100 mls/hr Q12 IVPB Last administered on 09/02/18 21:33; Admin Dose 100 MLS/HR; Start 08/30/18 at 11:50 Diltiazem HCl (Cardizem) 60 mg Q8 PO Last administered on 09/03/18 06:13; Admin Dose 60 MG; Start 08/31/18 at 22:00 Vancomycin HCl (Vancomycin Oral Syringe) 125 mg Q6 PO Last administered on 09/03/18 06:13; Admin Dose 125 MG; Start 09/01/18 at 18:00 SANDER WILL NP Sep 03, 2018 09:27
[2018-09-03] MEDS: MULTIVITAMINS 30 ML CUP GTB SCH (09:45)
[2018-09-03] MEDS: AMIODARONE 200 MG TAB PO SCH ×2 (09:45→22:00)
[2018-09-03] MEDS: ASCORBIC ACID 500 MG TAB GTB SCH (09:45)
[2018-09-03] MEDS: BALSAM PERU/CASTOR OIL 60 GM TUBE TOP SCH ×2 (09:46→22:01)
[2018-09-03] MEDS: COLLAGENASE 5 GM (UD JAR) TOP SCH (11:11)
[2018-09-03 11:53] VITALS: BP 133/78; PULSE 82; RESP 18
[2018-09-03] MEDS: TRIMETHOPRIM/SULFAMETHOXAZOLE 15 ML in DEXTROSE 5% 500 ML IVPB SCH ×2 (14:03→22:00)
--- NOTE | 2018-09-03 15:25 | PN ---
Date/Time of Note Date/Time of Note DATE: 09/03/18 TIME: 15:23 Assessment/Plan VTE [place]axis [place] [facility]: 6 [place] [facility] Yes Pharmacological prophylaxis: NA/contraindicated Pharm contraindication: low risk/ambulating Lines/Catheters [facility] Saline Lock Urinary Cath still in place: No Assessment/Plan Assessment/Plan 72-year-old male with atrial fibrillation, multifocal infarcts, dementia, chronic encephalopathy, psychosis/schizophrenia, MV endocarditis, dysphagia with G-tube who presents with: 1. Atrial fibrillation with RVR: Now rate controlled - Currently on PO amiodarone and diltiazem - Appreciate cardiology's help 2. Healthcare associated pneumonia: X-ray shows worsening consolidation -Continue IV meropenem 3. Bacteremia - Blood culture growing gram positive rods which are usually contaminants. - Repeat culture growing gram negative rods - ID consulted. On meropenem and vancomycin. - Will consider surgical consult for sacral wound. 4. Dysphagia with G-tube - Tube feeds 5. History of recent MV endocarditis - s/p course of vancomycin, completed 08/27. 6. Stage III sacral decub ulcer - On empiric vanco and meropenem as above. - I consulted Dr. Diamond to evaluate the wound for possible debridement and reconstruction, he may see the patient Wednesday. Result Diagram: 09/02/18 0508 09/02/18 0508 Subjective 24 Hr Interval Summary Free Text/Dictation No acute overnight events. Exam/Review of Systems Exam Vitals Vital Signs Date Temp Pulse Resp B/P (MAP) Pulse Ox O2 O2 Flow FiO2 Time Delivery Rate 09/03/18 98.3 82 18 133/78 96 11:53 (96) 09/03/18 Nasal 3.0 08:00 Cannula Intake and Output 09/02/18 09/02/18 09/03/18 1515:00 23:00 07:00 IntakeIntake Total 230 ml OutputOutput Total 1200 ml 150 ml BalanceBalance 230 ml -1200 ml -150 ml Exam General: Lying in bed, on nasal cannula. Head: Normocephalic, atraumatic. Eyes: Pupils equally reactive, EOM intact ENT: Moist mucous membranes Neck: Supple, no lymphadenopathy Respiratory: Slightly distant breath sounds bilaterally Cardiovascular: No rubs or gallops Abdominal: Soft, non-tender, non-distended, no peritoneal sign MSK: No lower extremity bilaterally. Severe leg muscle atrophy. Neuro: Awake, alert, oriented to name, location, not date. Medications Medication Current Medications IV Flush (NS 3 ml) 3 ml PER PROTOCOL IV ; Start 08/28/18 at 00:00 Ondansetron HCl (Zofran Inj) 4 mg Q6H PRN IV NAUSEA/VOMITING; Start 08/28/18 at 00:00 Acetaminophen (Tylenol Tab) 650 mg Q6H PRN PO .PAIN 1-3 OR TEMP; Start 08/28/18 at 00:00 Amiodarone HCl (Cordarone) 200 mg BID PO Last administered on 09/03/18 09:45; Admin Dose 200 MG; Start 08/28/18 at 00:00 Ipratropium [place] (Atrovent 0.02% (Neb)) 0.5 mg Q6H RESP THERAPY PRN INH SHORTNESS OF BREATH; Start 08/28/18 at 00:00 Lansoprazole (Prevacid) 30 mg DAILY@0600 PO Last administered on 09/03/18 06:13; Admin Dose 30 MG; Start 08/28/18 at 06:00 Levalbuterol (Xopenex Hfa) 1 puff Q4H RESP THERAPY PRN INH WHEEZING AND SOB; Start 08/28/18 at 00:00 Miscellaneous Information (Pending [facility] Order For Wound Care) This patient dugan... PRN PRN XX WOUND CARE; Start 08/28/18 at 19:00 Multivitamins (Multivitamin) 30 ml DAILY GTB Last administered on 09/03/18 09:45; Admin Dose 30 ML; Start 08/30/18 at 09:00 Ascorbic Acid (Vitamin C) 500 mg DAILY GTB Last administered on 09/03/18 09:45; Admin Dose 500 MG; Start 08/30/18 at 09:00 Diltiazem HCl (Cardizem) 60 mg Q8 PO Last administered on 09/03/18 14:03; Admin Dose 60 MG; Start 08/31/18 at 22:00 Vancomycin HCl (Vancomycin Oral Syringe) 125 mg Q6 PO Last administered on 09/03/18 12:40; Admin Dose 125 MG; Start 09/01/18 at 18:00 Trimethoprim/ Sulfamethoxazole 15 ml/Dextrose 515 ml @ 343.333 mls/hr Q8 IVPB Last administered on 09/03/18at 14:03; Admin Dose 343.333 MLS/HR; Start 09/03/18 at 14:00 Collagenase (Santyl) 1 applic DAILY TOP Last administered on 09/03/18at 11:11; Admin Dose 1 APPLIC; Start 09/03/18 at 10:15 RACIEL HUMPHREY MD Sep 03, 2018 15:25
[2018-09-03 16:30] VITALS: BP 132/65; PULSE 82; RESP 19
[2018-09-03 20:00] VITALS: BP 122/84; PULSE 103; RESP 20
[2018-09-04] VITALS (7 sets, daily range): BP systolic 88–120; BP diastolic 55–82; PULSE 85–106; RESP 18–32
[2018-09-04] MEDS: VANCOMYCIN HCL 250 MG/5ML POSYG PO SCH ×4 (02:02→18:03)
[2018-09-04] MEDS: DILTIAZEM 30 MG TAB PO SCH ×3 (05:52→21:50)
[2018-09-04] MEDS: LANSOPRAZOLE 30 MG CAP PO SCH (05:52)
[2018-09-04] MEDS: TRIMETHOPRIM/SULFAMETHOXAZOLE 15 ML in DEXTROSE 5% 500 ML IVPB SCH ×3 (06:21→21:52)
[2018-09-04] MEDS: COLLAGENASE 5 GM (UD JAR) TOP SCH (08:44)
[2018-09-04] MEDS: MULTIVITAMINS 30 ML CUP GTB SCH (08:44)
[2018-09-04] MEDS: ASCORBIC ACID 500 MG TAB GTB SCH (08:45)
[2018-09-04] MEDS: AMIODARONE 200 MG TAB PO SCH ×2 (08:46→21:00)
[2018-09-04] MEDS: BALSAM PERU/CASTOR OIL 60 GM TUBE TOP SCH ×2 (08:47→21:52)
--- NOTE | 2018-09-04 10:29 | PN ---
Date/Time of Note Date/Time of Note DATE: 09/04/18 TIME: 10:26 Assessment/Plan VTE Prophylaxis Risk score (from [facility])>0 risk: 3 SCD applied (from [facility]): Yes Pharmacological prophylaxis: heparin Lines/Catheters IV [facility] Saline Lock Urinary Cath still in place: No Assessment/Plan Assessment/Plan 72-year-old male with atrial fibrillation, multifocal infarcts, dementia, chronic encephalopathy, psychosis/schizophrenia, MV endocarditis, dysphagia with G-tube who presents with: 1. Atrial fibrillation with RVR: Now rate controlled - Currently on PO amiodarone and diltiazem - Appreciate cardiology's help 2. Healthcare associated pneumonia: X-ray shows worsening consolidation -Continue IV meropenem 3. Bacteremia - Blood culture growing gram positive rods which are usually contaminants. - Repeat culture growing gram negative rods - ID consulted. Currently on IV bactrim and PO vanco. - Sacral decub ulcer wound swab is polymicrobial. This may be contributing to transient bacteremia. 4. Dysphagia with G-tube - Tube feeds 5. History of recent MV endocarditis - s/p course of vancomycin, completed 08/27. 6. Stage III sacral decub ulcer - On IV bactrim as above. - I consulted Dr. Diamond to evaluate the wound for possible debridement and reconstruction, he will see the patient Wednesday. Dispo: Surgical evaluation of sacral decub ulcer followed by discharge back to SNF with ID-recommended antibiotics. Result Diagram: 09/02/18 0508 09/02/18 0508 Subjective 24 Hr Interval Summary Free Text/Dictation No acute overnight events. Exam/Review of Systems Exam Vitals Vital Signs Date Temp Pulse Resp B/P (MAP) Pulse Ox O2 O2 Flow FiO2 Time Delivery Rate 09/04/18 98.1 87 28 96/55 (69) 89 Nasal 08:09 Cannula 09/04/18 3.0 08:00 Intake and Output 09/03/18 09/03/18 09/04/18 1515:00 23:00 07:00 IntakeIntake Total 50 ml 1545 ml 1495 ml OutputOutput Total 700 ml 2100 ml BalanceBalance 50 ml 845 ml -605 ml Exam General: Lying in bed, on nasal cannula. Head: Normocephalic, atraumatic. Eyes: Pupils equally reactive, EOM intact ENT: Moist mucous membranes Neck: Supple, no lymphadenopathy Respiratory: Slightly distant breath sounds bilaterally Cardiovascular: No rubs or gallops Abdominal: Soft, non-tender, non-distended, no peritoneal sign MSK: No lower extremity bilaterally. Severe leg muscle atrophy. Neuro: Awake, alert, oriented to name, location, not date. Medications Medication Current Medications IV Flush (NS 3 ml) 3 ml PER PROTOCOL IV ; Start 08/28/18 at 00:00 Ondansetron HCl (Zofran Inj) 4 mg Q6H PRN IV NAUSEA/VOMITING; Start 08/28/18 at 00:00 Acetaminophen (Tylenol Tab) 650 mg Q6H PRN PO .PAIN 1-3 OR TEMP; Start 08/28/18 at 00:00 Amiodarone HCl (Cordarone) 200 mg BID PO Last administered on 09/03/18at 22:00; Admin Dose 200 MG; Start 08/28/18 at 00:00 Ipratropium [place] (Atrovent 0.02% (Neb)) 0.5 mg Q6H RESP THERAPY PRN INH SHORTNESS OF BREATH; Start 08/28/18 at 00:00 Lansoprazole (Prevacid) 30 mg DAILY@0600 PO Last administered on 09/04/18at 05:52; Admin Dose 30 MG; Start 08/28/18 at 06:00 Levalbuterol (Xopenex Hfa) 1 puff Q4H RESP THERAPY PRN INH WHEEZING AND SOB; Start 08/28/18 at 00:00 Miscellaneous Information (Pending [facility] Order For Wound Care) This patient dugan... PRN PRN XX WOUND CARE; Start 08/28/18 at 19:00 Multivitamins (Multivitamin) 30 ml DAILY GTB Last administered on 09/04/18at 08:44; Admin Dose 30 ML; Start 08/30/18 at 09:00 Ascorbic Acid (Vitamin C) 500 mg DAILY GTB Last administered on 09/04/18at 08:45; Admin Dose 500 MG; Start 08/30/18 at 09:00 Diltiazem HCl (Cardizem) 60 mg Q8 PO Last administered on 09/04/18at 05:52; Admin Dose 60 MG; Start 08/31/18 at 22:00 Vancomycin HCl (Vancomycin Oral Syringe) 125 mg Q6 PO Last administered on 7/14/19at 05:52; Admin Dose 125 MG; Start 09/01/18 at 18:00 Trimethoprim/ Sulfamethoxazole 15 ml/Dextrose 515 ml @ 343.333 mls/hr Q8 IVPB Last administered on 09/04/18at 06:21; Admin Dose 343.333 MLS/HR; Start 09/03/18 at 14:00 Collagenase (Santyl) 1 applic DAILY TOP Last administered on 09/04/18at 08:44; Admin Dose 1 APPLIC; Start 09/03/18 at 10:15 RACIEL HUMPHREY MD Sep 04, 2018 10:29
--- NOTE | 2018-09-04 13:48 | CONS ---
Consultation Date/Type/Reason Admit Date/Time Aug 29, 2018 at 07:31 Initial Consult Date Type of Consult SUBJECTIVE: Pt is unchanged. No fevers. VS: stable T: 98.4 LABS: Reviewed. MICROBIOLOGY: Blood culture on admission grew bacillus species. Repeat blood culture growing MDR A.b Wound culture: GRAM STAIN Final POLYMORPH. LEUKOCYTE 1+ . NO ORGANISM SEEN WOUND CULTURE Preliminary Organism 1 ACINETOBACTER BAUMANNII QUANTITY 1+ Organism 2 ESCHERICHIA COLI (ESBL) QUANTITY ISOLATED FROM BROTH ONLY . MULTI DRUG RESISTANT ORGANISM Organism 3 GRAM NEGATIVE FÁTIMA QUANTITY SCANT GROWTH Organism 4 STAPHYLOCOCCUS SPECIES QUANTITY ISOLATED FROM BROTH ONLY PHONED TO JIM,6WM AND A COPY TO AT 1013 09/04/2018 BY JV. NOTIFIED JENNIFER QUIROZ AT 1055 09/04/2018 BY MICKI. Acinetobacter baumannii: Multi drug resistant organism Indwelling's: PEG Antimicrobials: Bactrim, PO Vanco Physical examination: GEN: Fragile elderly man who is in no distress. HENT: Head atraumatic normocephalic; neck is supple PULM: chest rise symmetrical breath sounds diminished bases. Heart: S1-S2. Abdomen soft bowel sounds present. Extremities without cyanosis. Skin: Patient has a large unstageable sacral wound Assessment: 1. MDR gram-negative fátima bacteremia possibly secondary to urinary tract infection versus sacral decub vs pulmonary 2. Unstageable sacral decubitus ulcer 3. Urinary tract infection per urinalysis 4. Hx C. difficile colitis 5. History of MRSA endocarditis, treated 6. History of CVA with chronic encephalopathy 7. Dysphagia status post PEG 8. Atrial fibrillation status post RVR Plan: Change abx to IV Merrem. Final wound Cx report noted. Monitor renal f-n. Pt is at high risk for C dif relapse will keep on PO Vanco Date/Time of Note DATE: 09/04/18 TIME: 13:44 Exam/Review of Systems Exam Vitals Vital Signs Date Temp Pulse Resp B/P (MAP) Pulse Ox O2 O2 Flow FiO2 Time Delivery Rate 09/04/18 98.4 100 22 101/68 90 Nasal 11:01 (79) Cannula 09/04/18 3.0 08:00 Intake and Output 09/03/18 09/03/18 09/04/18 1515:00 23:00 07:00 IntakeIntake Total 50 ml 1545 ml 1495 ml OutputOutput Total 700 ml 2100 ml BalanceBalance 50 ml 845 ml -605 ml Results Result Diagram: 09/02/18 0508 09/02/18 0508 Medications Medication Current Medications IV Flush (NS 3 ml) 3 ml PER PROTOCOL IV ; Start 08/28/18 at 00:00 Ondansetron HCl (Zofran Inj) 4 mg Q6H PRN IV NAUSEA/VOMITING; Start 08/28/18 at 00:00 Acetaminophen (Tylenol Tab) 650 mg Q6H PRN PO .PAIN 1-3 OR TEMP; Start 08/28/18 at 00:00 Amiodarone HCl (Cordarone) 200 mg BID PO Last administered on 09/03/18at 22:00; Admin Dose 200 MG; Start 08/28/18 at 00:00 Ipratropium [place] (Atrovent 0.02% (Neb)) 0.5 mg Q6H RESP THERAPY PRN INH SHORTNESS OF BREATH; Start 08/28/18 at 00:00 Lansoprazole (Prevacid) 30 mg DAILY@0600 PO Last administered on 09/04/18at 05:52; Admin Dose 30 MG; Start 08/28/18 at 06:00 Levalbuterol (Xopenex Hfa) 1 puff Q4H RESP THERAPY PRN INH WHEEZING AND SOB; Start 08/28/18 at 00:00 [facility] This patient dugan... PRN PRN XX WOUND CARE; Start 08/28/18 at 19:00 Multivitamins (Multivitamin) 30 ml DAILY GTB Last administered on 09/04/18at 08:44; Admin Dose 30 ML; Start 08/30/18 at 09:00 Ascorbic Acid (Vitamin C) 500 mg DAILY GTB Last administered on 09/04/18at 08:45; Admin Dose 500 MG; Start 08/30/18 at 09:00 Diltiazem HCl (Cardizem) 60 mg Q8 PO Last administered on 09/04/18at 05:52; Admin Dose 60 MG; Start 08/31/18 at 22:00 Vancomycin HCl (Vancomycin Oral Syringe) 125 mg Q6 PO Last administered on 08/22 06/10at 12:35; Admin Dose 125 MG; Start 09/01/18 at 18:00 Trimethoprim/ Sulfamethoxazole 15 ml/Dextrose 515 ml @ 343.333 mls/hr Q8 IVPB Last administered on 09/04/18at 06:21; Admin Dose 343.333 MLS/HR; Start 09/03/18 at 14:00 Collagenase (Santyl) 1 applic DAILY TOP Last administered on 09/04/18at 08:44; Admin Dose 1 APPLIC; Start 09/03/18 at 10:15 Heparin Sodium (Porcine) (Heparin (5000 Units/1ml)) 5,000 unit BID SC ; Start 09/04/18 at 21:00 Meropenem/Sodium Chloride 50 ml @ 100 mls/hr Q8 IVPB ; Start 09/04/18 at 14:00 CHRIS WILLIS Sep 04, 2018 13:48
[2018-09-04] MEDS: MEROPENEM 1 GM/50ML(PMX) 50 ML IVPB SCH ×2 (13:49→21:50)
[2018-09-04] MEDS ORDERED: MEROPENEM 500MG/50 ML (PMX) 50 ML IVPB SCH (14:00)
--- NOTE | 2018-09-04 14:58 | CONS ---
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 Encephalopathy CVA, hemorrhagic History of nonsustained ventricular tachycardia Continue Cardizem and titrate as needed Antibiotics as per infectious disease Lung examination with coarse of breath sounds, chest x-ray with pulmonary vascular congestion, would start gentle diuretics Consultation Date/Type/Reason Admit Date/Time Aug 29, 2018 at 07:31 Initial Consult Date Type of Consult Cardiology Date/Time of Note DATE: 09/04/18 TIME: 14:57 24 HR Interval Summary Free Text/Dictation Seen and examined, denies shortness of breath Exam/Review of Systems Vital Signs Vitals Vital Signs Date Temp Pulse Resp B/P (MAP) Pulse Ox O2 O2 Flow FiO2 Time Delivery Rate 09/04/18 98.4 100 22 101/68 90 Nasal 11:01 (79) Cannula 09/04/18 3.0 08:00 Intake and Output 09/03/18 09/03/18 09/04/18 1515:00 23:00 07:00 IntakeIntake Total 50 ml 1545 ml 1495 ml OutputOutput Total 700 ml 2100 ml BalanceBalance 50 ml 845 ml -605 ml Exam Exam Awake, answers some questions and follows basic commands Head: normocephalic Respiratory: other (Coarse breath sounds bilaterally, no wheezing) Cardiovascular: irregular rhythm (S1-S2 heard) Gastrointestinal: soft, non-tender, bowel sounds Extremities: other (No edema) Labs Result Diagram: 09/02/18 0508 09/02/18 0508 Medications Medications Current Medications IV Flush (NS 3 ml) 3 ml PER PROTOCOL IV ; Start 08/28/18 at 00:00 Ondansetron HCl (Zofran Inj) 4 mg Q6H PRN IV NAUSEA/VOMITING; Start 08/28/18 at 00:00 Acetaminophen (Tylenol Tab) 650 mg Q6H PRN PO .PAIN 1-3 OR TEMP; Start 08/28/18 at 00:00 Amiodarone HCl (Cordarone) 200 mg BID PO Last administered on 09/03/18at 22:00; Admin Dose 200 MG; Start 08/28/18 at 00:00 Ipratropium [place] (Atrovent 0.02% (Neb)) 0.5 mg Q6H RESP THERAPY PRN INH SHORTNESS OF BREATH; Start 08/28/18 at 00:00 Lansoprazole (Prevacid) 30 mg DAILY@0600 PO Last administered on 09/04/18 05:52; Admin Dose 30 MG; Start 08/28/18 at 06:00 Levalbuterol (Xopenex Hfa) 1 puff Q4H RESP THERAPY PRN INH WHEEZING AND SOB; Start 08/28/18 at 00:00 Miscellaneous Information (Pending Santyl Order For Wound Care) This patient dugan... PRN PRN XX WOUND CARE; Start 08/28/18 at 19:00 Multivitamins (Multivitamin) 30 ml DAILY GTB Last administered on 09/04/18 08:44; Admin Dose 30 ML; Start 08/30/18 at 09:00 Ascorbic Acid (Vitamin C) 500 mg DAILY GTB Last administered on 09/04/18 08:45; Admin Dose 500 MG; Start 08/30/18 at 09:00 Diltiazem HCl (Cardizem) 60 mg Q8 PO Last administered on 09/04/18 05:52; Admin Dose 60 MG; Start 08/31/18 at 22:00 Vancomycin HCl (Vancomycin Oral Syringe) 125 mg Q6 PO Last administered on 12:35; Admin Dose 125 MG; Start 09/01/18 at 18:00 Trimethoprim/ Sulfamethoxazole 15 ml/Dextrose 515 ml @ 343.333 mls/hr Q8 IVPB Last administered on 09/04/18 14:38; Admin Dose 343.333 MLS/HR; Start 09/03/18 at 14:00 Collagenase (Santyl) 1 applic DAILY TOP Last administered on 09/04/18 08:44; Admin Dose 1 APPLIC; Start 09/03/18 at 10:15 Heparin Sodium (Porcine) (Heparin (5000 Units/1ml)) 5,000 unit BID SC ; Start 09/04/18 at 21:00 Meropenem/Sodium Chloride 50 ml @ 100 mls/hr Q8 IVPB Last administered on 09/04/18 13:49; Admin Dose 100 MLS/HR; Start 09/04/18 at 14:00 Charan Cottrell DO Sep 04, 2018 14:58
[2018-09-04] MEDS: FUROSEMIDE 20 MG INJ IV SCH (15:46)
[2018-09-04] MEDS: HEPARIN 5,000 UNIT/1 ML VIAL SC SCH (22:05)
[2018-09-05 00:26] VITALS: BP 92/61; PULSE 96; RESP 22
[2018-09-05] MEDS: VANCOMYCIN HCL 250 MG/5ML POSYG PO SCH ×4 (00:39→17:46)
[2018-09-05 04:17] VITALS: BP 99/64; PULSE 107; RESP 22
[2018-09-05] MEDS: MEROPENEM 1 GM/50ML(PMX) 50 ML IVPB SCH ×3 (05:33→21:09)
[2018-09-05] MEDS: TRIMETHOPRIM/SULFAMETHOXAZOLE 15 ML in DEXTROSE 5% 500 ML IVPB SCH ×3 (05:33→22:08)
[2018-09-05] MEDS: DILTIAZEM 30 MG TAB PO SCH ×3 (05:35→21:10)
[2018-09-05] MEDS: LANSOPRAZOLE 30 MG CAP PO SCH (06:11)
[2018-09-05 07:05] VITALS: BP 100/62; PULSE 101; RESP 22
[2018-09-05] MEDS: COLLAGENASE 5 GM (UD JAR) TOP SCH (08:32)
[2018-09-05] MEDS: MULTIVITAMINS 30 ML CUP GTB SCH (08:32)
[2018-09-05] MEDS: ASCORBIC ACID 500 MG TAB GTB SCH (08:32)
[2018-09-05] MEDS: BALSAM PERU/CASTOR OIL 60 GM TUBE TOP SCH ×2 (08:34→21:09)
[2018-09-05] MEDS: HEPARIN 5,000 UNIT/1 ML VIAL SC SCH ×2 (08:41→21:19)
[2018-09-05] MEDS: FUROSEMIDE 20 MG INJ IV SCH (09:00)
[2018-09-05 10:59] VITALS: BP 93/60; PULSE 103; RESP 22
--- NOTE | 2018-09-05 10:59 | PN ---
Date/Time of Note Date/Time of Note DATE: 09/05/18 TIME: 10:49 Assessment/Plan VTE Prophylaxis Risk score (from Ns)>0 risk: 6 SCD applied (from [facility] [place]): No SCD contraindicated: other Pharmacological prophylaxis: heparin Lines/Catheters IV Catheter Type (from [facility] [place] Urinary Cath still in place: No Assessment/Plan Hospital Course S: Patient waiting to be seen by plastic surgery team. Tolerating tube feeds. No other acute events overnight. O: VS- see below PE: General: Lying in bed, no acute distress presently Head: Normocephalic, atraumatic. Eyes: Pupils equally reactive, EOM intact ENT: Dry mucous membranes, trach in good position Neck: Supple, no lymphadenopathy Respiratory: Slightly distant breath sounds bilaterally Cardiovascular: No rubs or gallops Abdominal: Soft, non-tender, non-distended, no peritoneal sign MSK: No lower extremity bilaterally Neurologic: limited movement of all 4 extremities Assessment/Plan: 72-year-old male with atrial fibrillation, multifocal infarcts, dementia, chronic encephalopathy, psychosis/schizophrenia, MV endocarditis, dysphagia with G-tube who presents with: 1. Atrial fibrillation with RVR: Now rate controlled -Continue PO amiodarone and diltiazem -Follow-up further recommendations from cardiology team 2. Healthcare associated pneumonia: X-ray earlier this admission showed worsening consolidation -Follow-up ID recommendations, for now continue IV meropenem 3. Bacteremia -patient found with MDR gram-negative zeinab bacteremia possibly secondary to urinary tract infection versus sacral decub vs pulmonary. Also, sacral decub ulcer wound swab is polymicrobial. This may be contributing to transient bacteremia. -Per ID team, continue for now on meropenem, IV bactrim and PO vanco. 4. Dysphagia with G-tube -For now continue tube feeds 5. History of recent MV endocarditis - s/p course of IV vancomycin, completed 08/27-monitor for now 6. Stage III sacral decub ulcer -For now continue IV bactrim as above. -Follow-up recommendations from plastic surgeon Dr. Diamond to evaluate the wound for possible debridement and reconstruction Dispo: Surgical evaluation of sacral decub ulcer followed by discharge back to SNF with ID-recommended antibiotics. Result Diagram: 09/02/18 0508 09/02/18 0508 Exam/Review of Systems Exam Vitals Vital Signs Date Temp Pulse Resp B/P (MAP) Pulse Ox O2 O2 Flow FiO2 Time Delivery Rate 09/05/18 97.6 101 22 100/62 97 Nasal 5.0 07:05 (75) Cannula Intake and Output 09/04/18 09/04/18 09/05/18 1515:00 23:00 07:00 IntakeIntake Total 565 ml 515 ml 980 ml OutputOutput Total 100 ml 525 ml 3050 ml BalanceBalance 465 ml -10 ml -2070 ml Medications Medication Current Medications IV Flush (NS 3 ml) 3 ml PER PROTOCOL IV ; Start 08/28/18 at 00:00 Ondansetron HCl (Zofran Inj) 4 mg Q6H PRN IV NAUSEA/VOMITING; Start 08/28/18 at 00:00 Acetaminophen (Tylenol Tab) 650 mg Q6H PRN PO .PAIN 1-3 OR TEMP; Start 08/28/18 at 00:00 Amiodarone HCl (Cordarone) 200 mg BID PO Last administered on 09/03/18at 22:00; Admin Dose 200 MG; Start 08/28/18 at 00:00 Ipratropium [place] (Atrovent 0.02% (Neb)) 0.5 mg Q6H RESP THERAPY PRN INH SHORTNESS OF BREATH; Start 08/28/18 at 00:00 Lansoprazole (Prevacid) 30 mg DAILY@0600 PO Last administered on 09/05/18at 06:11; Admin Dose 30 MG; Start 08/28/18 at 06:00 Levalbuterol (Xopenex Hfa) 1 puff Q4H RESP THERAPY PRN INH WHEEZING AND SOB; Start 08/28/18 at 00:00 Miscellaneous Information (Pending Santyl Order For Wound Care) This patient dugan... PRN PRN XX WOUND CARE; Start 08/28/18 at 19:00 Multivitamins (Multivitamin) 30 ml DAILY GTB Last administered on 09/05/18at 08:32; Admin Dose 30 ML; Start 08/30/18 at 09:00 Ascorbic Acid (Vitamin C) 500 mg DAILY GTB Last administered on 09/05/18at 08:32; Admin Dose 500 MG; Start 08/30/18 at 09:00 Diltiazem HCl (Cardizem) 60 mg Q8 PO Last administered on 09/05/18 05:35; Admin Dose 60 MG; Start 08/31/18 at 22:00 Vancomycin HCl (Vancomycin Oral Syringe) 125 mg Q6 PO Last administered on 09/05/18 06:11; Admin Dose 125 MG; Start 09/01/18 at 18:00 Trimethoprim/ Sulfamethoxazole 15 ml/Dextrose 515 ml @ 343.333 mls/hr Q8 IVPB Last administered on 09/05/18 05:33; Admin Dose 343.333 MLS/HR; Start 09/03/18 at 14:00 Collagenase (Santyl) 1 applic DAILY TOP Last administered on 09/05/18 08:32; Admin Dose 1 APPLIC; Start 09/03/18 at 10:15 Heparin Sodium (Porcine) (Heparin (5000 Units/1ml)) 5,000 unit BID SC Last administered on 09/05/18 08:41; Admin Dose 5,000 UNIT; Start 09/04/18 at 21:00 Meropenem/Sodium Chloride 50 ml @ 100 mls/hr Q8 IVPB Last administered on 09/05/18 05:33; Admin Dose 100 MLS/HR; Start 09/04/18 at 14:00 Furosemide (Lasix) 20 mg DAILY IV Last administered on 09/04/18 15:46; Admin Dose 20 MG; Start 09/04/18 at 15:00 SOTO SHERMAN Sep 05, 2018 10:59
[2018-09-05] MEDS: AMIODARONE 200 MG TAB PO SCH ×2 (13:18→21:10)
[2018-09-05] MEDS: DAKINS 0.0125%(1/40) 473 ML SOLUTION TP SCH (14:35)
[2018-09-05 15:03] VITALS: BP 101/57; PULSE 113; RESP 22
--- NOTE | 2018-09-05 15:40 | CONS ---
Assessment/Plan Assessment/Plan Hospital Course (Demo Recall) Awake, looks comfortable, no fevers Blood culture on admission grew bacillus species. Repeat blood culture growing MDR A.b Indwelling's: PEG Antimicrobials: IV Bactrim Meropenem PO Vanco Physical examination: Fragile elderly man who is in no distress. Head atraumatic normocephalic neck is supple chest rise symmetrical breath sounds diminished bases. Heart: S1-S2. Abdomen soft bowel sounds present. Extremities without cyanosis. Skin: Patient has a large unstageable sacral wound Assessment: 1. MDR gram-negative zeinab bacteremia possibly secondary to urinary tract infection versus sacral decub vs pulmonary 2. Unstageable sacral decubitus ulcer 3. Urinary tract infection per urinalysis 4. Hx C. difficile colitis 5. History of MRSA endocarditis, treated 6. History of CVA with chronic encephalopathy 7. Dysphagia status post PEG 8. Atrial fibrillation status post RVR Plan: Remains stable, continue abx, monitor renal f-n, pt is at high risk for C dif relapse will keep on PO Vanco, surgical rec-s Consultation Date/Type/Reason Admit Date/Time Aug 29, 2018 at 07:31 Initial Consult Date Type of Consult id Date/Time of Note DATE: 09/05/18 TIME: 15:39 Exam/Review of Systems Exam Vitals Vital Signs Date Temp Pulse Resp B/P (MAP) Pulse Ox O2 O2 Flow FiO2 Time Delivery Rate 09/05/18 98.0 113 22 101/57 97 Nasal 5.0 15:03 (72) Cannula Intake and Output 09/04/18 09/04/18 09/05/18 1515:00 23:00 07:00 IntakeIntake Total 565 ml 515 ml 1030 ml OutputOutput Total 100 ml 525 ml 3050 ml BalanceBalance 465 ml -10 ml -2020 ml Results Result Diagram: 09/02/18 0508 09/02/18 0508 Medications Medication Current Medications IV Flush (NS 3 ml) 3 ml PER PROTOCOL IV ; Start 08/28/18 at 00:00 Ondansetron HCl (Zofran Inj) 4 mg Q6H PRN IV NAUSEA/VOMITING; Start 08/28/18 at 00:00 Acetaminophen (Tylenol Tab) 650 mg Q6H PRN PO .PAIN 1-3 OR TEMP; Start 08/28/18 at 00:00 Amiodarone HCl (Cordarone) 200 mg BID PO Last administered on 09/05/18 13:18; Admin Dose 200 MG; Start 08/28/18 at 00:00 Ipratropium [place] (Atrovent 0.02% (Neb)) 0.5 mg Q6H RESP THERAPY PRN INH SHORTNESS OF BREATH; Start 08/28/18 at 00:00 Lansoprazole (Prevacid) 30 mg DAILY@0600 PO Last administered on 09/05/18 06:11; Admin Dose 30 MG; Start 08/28/18 at 06:00 Levalbuterol (Xopenex Hfa) 1 puff Q4H RESP THERAPY PRN INH WHEEZING AND SOB; Start 08/28/18 at 00:00 Miscellaneous Information (Pending Santyl Order For Wound Care) This patient dugan... PRN PRN XX WOUND CARE; Start 08/28/18 at 19:00 Multivitamins (Multivitamin) 30 ml DAILY GTB Last administered on 09/05/18 08:32; Admin Dose 30 ML; Start 08/30/18 at 09:00 Ascorbic Acid (Vitamin C) 500 mg DAILY GTB Last administered on 09/05/18 08:32; Admin Dose 500 MG; Start 08/30/18 at 09:00 Diltiazem HCl (Cardizem) 60 mg Q8 PO Last administered on 09/05/18 05:35; Admin Dose 60 MG; Start 08/31/18 at 22:00 Vancomycin HCl (Vancomycin Oral Syringe) 125 mg Q6 PO Last administered on 09/05/18 13:18; Admin Dose 125 MG; Start 09/01/18 at 18:00 Trimethoprim/ Sulfamethoxazole 15 ml/Dextrose 515 ml @ 343.333 mls/hr Q8 IVPB Last administered on 09/05/18 05:33; Admin Dose 343.333 MLS/HR; Start 09/03/18 at 14:00 Collagenase (Santyl) 1 applic DAILY TOP Last administered on 09/05/18 08:32; Admin Dose 1 APPLIC; Start 09/03/18 at 10:15 Heparin Sodium (Porcine) (Heparin (5000 Units/1ml)) 5,000 unit BID SC Last administered on 09/05/18 08:41; Admin Dose 5,000 UNIT; Start 09/04/18 at 21:00 Meropenem/Sodium Chloride 50 ml @ 100 mls/hr Q8 IVPB Last administered on 09/05/18at 14:35; Admin Dose 100 MLS/HR; Start 09/04/18 at 14:00 Furosemide (Lasix) 20 mg DAILY IV Last administered on 09/04/18at 15:46; Admin Dose 20 MG; Start 09/04/18 at 15:00 Sodium Hypochlorite (Dakins Diluted ()) 1 applic DAILY TP Last administered on 09/05/18at 14:35; Admin Dose 1 APPLIC; Start 09/05/18 at 14:30 SANDER WILL NP Sep 05, 2018 15:40
--- NOTE | 2018-09-05 19:06 | CONS ---
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 Encephalopathy CVA, hemorrhagic History of nonsustained ventricular tachycardia Continue Cardizem and titrate as needed Antibiotics as per infectious disease Lasix as tolerated Consultation Date/Type/Reason Admit Date/Time Aug 29, 2018 at 07:31 Initial Consult Date Type of Consult Cardiology Date/Time of Note DATE: 09/05/18 TIME: 19:04 24 HR Interval Summary Free Text/Dictation no sob Exam/Review of Systems Vital Signs Vitals Vital Signs Date Temp Pulse Resp B/P (MAP) Pulse Ox O2 O2 Flow FiO2 Time Delivery Rate 09/05/18 98.0 113 22 101/57 97 Nasal 5.0 15:03 (72) Cannula Intake and Output 09/04/18 09/04/18 09/05/18 1515:00 23:00 07:00 IntakeIntake Total 565 ml 515 ml 1030 ml OutputOutput Total 100 ml 525 ml 3050 ml BalanceBalance 465 ml -10 ml -2020 ml Exam Constitutional: alert (nad) Head: normocephalic Respiratory: other Cardiovascular: irregular rhythm Gastrointestinal: soft, non-tender, bowel sounds Extremities: edema Labs Result Diagram: 09/02/18 0508 09/02/18 0508 Medications Medications Current Medications IV Flush (NS 3 ml) 3 ml PER PROTOCOL IV ; Start 08/28/18 at 00:00 Ondansetron HCl (Zofran Inj) 4 mg Q6H PRN IV NAUSEA/VOMITING; Start 08/28/18 at 00:00 Acetaminophen (Tylenol Tab) 650 mg Q6H PRN PO .PAIN 1-3 OR TEMP; Start 08/28/18 at 00:00 Amiodarone HCl (Cordarone) 200 mg BID PO Last administered on 09/05/18at 13:18; Admin Dose 200 MG; Start 08/28/18 at 00:00 Ipratropium [place] (Atrovent 0.02% (Neb)) 0.5 mg Q6H RESP THERAPY PRN INH SHORTNESS OF BREATH; Start 08/28/18 at 00:00 Lansoprazole (Prevacid) 30 mg DAILY@0600 PO Last administered on 09/05/18at 06:11; Admin Dose 30 MG; Start 08/28/18 at 06:00 Levalbuterol (Xopenex Hfa) 1 puff Q4H RESP THERAPY PRN INH WHEEZING AND SOB; Start 08/28/18 at 00:00 Miscellaneous Information (Pending Santyl Order For Wound Care) This patient dugan... PRN PRN XX WOUND CARE; Start 08/28/18 at 19:00 Multivitamins (Multivitamin) 30 ml DAILY GTB Last administered on 09/05/18 08:32; Admin Dose 30 ML; Start 08/30/18 at 09:00 Ascorbic Acid (Vitamin C) 500 mg DAILY GTB Last administered on 09/05/18 08:32; Admin Dose 500 MG; Start 08/30/18 at 09:00 Diltiazem HCl (Cardizem) 60 mg Q8 PO Last administered on 09/05/18 05:35; Admin Dose 60 MG; Start 08/31/18 at 22:00 Vancomycin HCl (Vancomycin Oral Syringe) 125 mg Q6 PO Last administered on 09/05/18 17:46; Admin Dose 125 MG; Start 09/01/18 at 18:00 Trimethoprim/ Sulfamethoxazole 15 ml/Dextrose 515 ml @ 343.333 mls/hr Q8 IVPB Last administered on 09/05/18 15:51; Admin Dose 343.333 MLS/HR; Start 09/03/18 at 14:00 Collagenase (Santyl) 1 applic DAILY TOP Last administered on 09/05/18 08:32; Admin Dose 1 APPLIC; Start 09/03/18 at 10:15 Heparin Sodium (Porcine) (Heparin (5000 Units/1ml)) 5,000 unit BID SC Last administered on 09/05/18 08:41; Admin Dose 5,000 UNIT; Start 09/04/18 at 21:00 Meropenem/Sodium Chloride 50 ml @ 100 mls/hr Q8 IVPB Last administered on 09/05/18 14:35; Admin Dose 100 MLS/HR; Start 09/04/18 at 14:00 Furosemide (Lasix) 20 mg DAILY IV Last administered on 09/04/18 15:46; Admin Dose 20 MG; Start 09/04/18 at 15:00 Sodium Hypochlorite (Dakins Diluted ()) 1 applic DAILY TP Last administered on 7/15/19at 14:35; Admin Dose 1 APPLIC; Start 09/05/18 at 14:30 Charan Cottrell DO Sep 05, 2018 19:06
[2018-09-05 19:53] VITALS: BP 110/59; PULSE 106; RESP 19
[2018-09-06] VITALS (7 sets, daily range): BP systolic 90–119; BP diastolic 55–69; PULSE 86–110; RESP 19–32
[2018-09-06] MEDS: VANCOMYCIN HCL 250 MG/5ML POSYG PO SCH ×4 (00:09→18:00)
[2018-09-06] MEDS: MEROPENEM 1 GM/50ML(PMX) 50 ML IVPB SCH ×3 (05:13→20:35)
[2018-09-06] MEDS: TRIMETHOPRIM/SULFAMETHOXAZOLE 15 ML in DEXTROSE 5% 500 ML IVPB SCH (06:07)
[2018-09-06] MEDS: DILTIAZEM 30 MG TAB PO SCH ×3 (06:08→22:00)
[2018-09-06] MEDS: LANSOPRAZOLE 30 MG CAP PO SCH (06:08)
[2018-09-06] MEDS: ASCORBIC ACID 500 MG TAB GTB SCH (07:51)
[2018-09-06] MEDS: COLLAGENASE 5 GM (UD JAR) TOP SCH (07:51)
[2018-09-06] MEDS: MULTIVITAMINS 30 ML CUP GTB SCH (07:51)
[2018-09-06] MEDS: DAKINS 0.0125%(1/40) 473 ML SOLUTION TP SCH (07:52)
[2018-09-06] MEDS: BALSAM PERU/CASTOR OIL 60 GM TUBE TOP SCH ×2 (07:52→20:28)
[2018-09-06] MEDS: AMIODARONE 200 MG TAB PO SCH ×2 (07:54→20:27)
[2018-09-06] MEDS: HEPARIN 5,000 UNIT/1 ML VIAL SC SCH ×2 (08:04→21:01)
[2018-09-06] MEDS: FUROSEMIDE 20 MG TAB NGT SCH (08:17)
--- NOTE | 2018-09-06 11:16 | PN ---
Date/Time of Note Date/Time of Note DATE: 09/06/18 TIME: 11:15 Assessment/Plan VTE Prophylaxis Risk score (from Ns)>0 risk: 7 SCD applied (from [facility] [place]): No SCD contraindicated: other Pharmacological prophylaxis: heparin Lines/Catheters IV Catheter Type (from [facility] Peripheral IV Urinary Cath still in place: No Assessment/Plan Hospital Course S: Patient still waiting to be seen by vascular surgery team. No acute events overnight, tolerating tube feeds. Denies chest pain. O: VS- see below PE: General: Lying in bed, no acute distress presently Head: Normocephalic, atraumatic. Eyes: Pupils equally reactive, EOM intact ENT: Dry mucous membranes, trach in good position Neck: Supple, no lymphadenopathy Respiratory: Slightly distant breath sounds bilaterally Cardiovascular: No rubs or gallops Abdominal: Soft, non-tender, non-distended, no peritoneal sign MSK: No lower extremity bilaterally Neurologic: limited movement of all 4 extremities Assessment/Plan: 72-year-old male with atrial fibrillation, multifocal infarcts, dementia, chronic encephalopathy, psychosis/schizophrenia, MV endocarditis, dysphagia with G-tube who presents with: 1. Atrial fibrillation with RVR: Now rate controlled -Continue PO amiodarone and diltiazem -Follow-up further recommendations from cardiology team 2. Healthcare associated pneumonia: X-ray earlier this admission showed worsening consolidation -Follow-up ID recommendations, for now continue IV meropenem 3. Bacteremia -patient found with MDR gram-negative zeinab bacteremia possibly secondary to urinary tract infection versus sacral decub vs pulmonary. Also, sacral decub ulcer wound swab is polymicrobial. This may be contributing to transient bacteremia. -Per ID team, continue for now on meropenem, IV bactrim and PO vanco. 4. Dysphagia with G-tube -For now continue tube feeds 5. History of recent MV endocarditis - s/p course of IV vancomycin, completed 08/27-monitor for now 6. Stage III sacral decub ulcer -For now continue IV bactrim as above. -Follow-up recommendations from plastic surgeon Dr. Diamond to evaluate the wound for possible debridement and reconstruction Dispo: Surgical evaluation of sacral decub ulcer followed by discharge back to SNF with ID-recommended antibiotics. Result Diagram: 09/02/18 0508 09/02/18 0508 Exam/Review of Systems Exam Vitals Vital Signs Date Temp Pulse Resp B/P (MAP) Pulse Ox O2 O2 Flow FiO2 Time Delivery Rate 09/06/18 Nasal 2.0 08:20 Cannula 09/06/18 98.0 92 30 90/58 (69) 94 08:01 Intake and Output 09/05/18 09/05/18 09/06/18 1515:00 23:00 07:00 IntakeIntake Total 515 ml 1645 ml 830 ml OutputOutput Total 1700 ml 1000 ml 2200 ml BalanceBalance -1185 ml 645 ml -1370 ml Medications Medication Current Medications IV Flush (NS 3 ml) 3 ml PER PROTOCOL IV ; Start 08/28/18 at 00:00 Ondansetron HCl (Zofran Inj) 4 mg Q6H PRN IV NAUSEA/VOMITING; Start 08/28/18 at 00:00 Acetaminophen (Tylenol Tab) 650 mg Q6H PRN PO .PAIN 1-3 OR TEMP; Start 08/28/18 at 00:00 Amiodarone HCl (Cordarone) 200 mg BID PO Last administered on 09/06/18at 07:54; Admin Dose 200 MG; Start 08/28/18 at 00:00 Ipratropium [place] (Atrovent 0.02% (Neb)) 0.5 mg Q6H RESP THERAPY PRN INH SHORTNESS OF BREATH; Start 08/28/18 at 00:00 Lansoprazole (Prevacid) 30 mg DAILY@0600 PO Last administered on 09/06/18at 06:08; Admin Dose 30 MG; Start 08/28/18 at 06:00 Levalbuterol (Xopenex Hfa) 1 puff Q4H RESP THERAPY PRN INH WHEEZING AND SOB; Start 08/28/18 at 00:00 Miscellaneous Information (Pending Santyl Order For Wound Care) This patient dugan... PRN PRN XX WOUND CARE; Start 08/28/18 at 19:00 Multivitamins (Multivitamin) 30 ml DAILY GTB Last administered on 09/06/18at 07:51; Admin Dose 30 ML; Start 08/30/18 at 09:00 Ascorbic Acid (Vitamin C) 500 mg DAILY GTB Last administered on 09/06/18at 07:51; Admin Dose 500 MG; Start 08/30/18 at 09:00 Diltiazem HCl (Cardizem) 60 mg Q8 PO Last administered on 09/06/18 06:08; Admin Dose 60 MG; Start 08/31/18 at 22:00 Vancomycin HCl (Vancomycin Oral Syringe) 125 mg Q6 PO Last administered on 09/06/18 05:15; Admin Dose 125 MG; Start 09/01/18 at 18:00 Trimethoprim/ Sulfamethoxazole 15 ml/Dextrose 515 ml @ 343.333 mls/hr Q8 IVPB Last administered on 09/06/18 06:07; Admin Dose 343.333 MLS/HR; Start 09/03/18 at 14:00 Collagenase (Santyl) 1 applic DAILY TOP Last administered on 09/06/18 07:51; Admin Dose 1 APPLIC; Start 09/03/18 at 10:15 Heparin Sodium (Porcine) (Heparin (5000 Units/1ml)) 5,000 unit BID SC Last administered on 09/06/18 08:04; Admin Dose 5,000 UNIT; Start 09/04/18 at 21:00 Meropenem/Sodium Chloride 50 ml @ 100 mls/hr Q8 IVPB Last administered on 09/06/18 05:13; Admin Dose 100 MLS/HR; Start 09/04/18 at 14:00 Sodium Hypochlorite (Dakins Diluted (40)) 1 applic DAILY TP Last administered on 09/06/18 07:52; Admin Dose 1 APPLIC; Start 09/05/18 at 14:30 Furosemide (Lasix) 20 mg DAILY NGT ; Start 09/06/18 at 09:00 SOTO SHERMAN Sep 06, 2018 11:16
--- NOTE | 2018-09-06 14:12 | CONS ---
Assessment/Plan Assessment/Plan Hospital Course (Demo Recall) Awake, looks comfortable, no fevers Blood culture on admission grew MDR A.b. Wound culture growing E. coli multidrug-resistant Acinetobacter Pseudomonas and coag negative staph species Indwelling's: PEG Antimicrobials: IV Bactrim Meropenem PO Vanco Physical examination: Fragile elderly man who is in no distress. Head atraumatic normocephalic neck is supple chest rise symmetrical breath sounds diminished bases. Heart: S1-S2. Abdomen soft bowel sounds present. Extremities without cyanosis. Skin: Patient has a large unstageable sacral wound Assessment: 1. MDR gram-negative zeinab bacteremia possibly secondary to urinary tract infection versus sacral decub vs pulmonary 2. Unstageable sacral decubitus ulcer 3. Urinary tract infection per urinalysis 4. Hx C. difficile colitis 5. History of MRSA endocarditis, treated 6. History of CVA with chronic encephalopathy 7. Dysphagia status post PEG 8. Atrial fibrillation status post RVR Plan: Remains stable, continue abx, monitor renal f-n, pt is at high risk for C dif relapse will keep on PO Vanco, await for surgical eval, f/u repeat bld cx Consultation Date/Type/Reason Admit Date/Time Aug 29, 2018 at 07:31 Initial Consult Date Type of Consult id Date/Time of Note DATE: 09/06/18 TIME: 14:11 Exam/Review of Systems Exam Vitals Vital Signs Date Temp Pulse Resp B/P (MAP) Pulse Ox O2 O2 Flow FiO2 Time Delivery Rate 09/06/18 98.0 86 30 104/58 90 Nasal 12:00 (73) Cannula 09/06/18 2.0 08:20 Intake and Output 09/05/18 09/05/18 09/06/18 1515:00 23:00 07:00 IntakeIntake Total 515 ml 1645 ml 830 ml OutputOutput Total 1700 ml 1000 ml 2200 ml BalanceBalance -1185 ml 645 ml -1370 ml Results Result Diagram: 09/02/18 0508 09/02/18 0508 Medications Medication Current Medications IV Flush (NS 3 ml) 3 ml PER PROTOCOL IV ; Start 08/28/18 at 00:00 Ondansetron HCl (Zofran Inj) 4 mg Q6H PRN IV NAUSEA/VOMITING; Start 08/28/18 at 00:00 Acetaminophen (Tylenol Tab) 650 mg Q6H PRN PO .PAIN 1-3 OR TEMP; Start 08/28/18 at 00:00 Amiodarone HCl (Cordarone) 200 mg BID PO Last administered on 09/06/18 07:54; Admin Dose 200 MG; Start 08/28/18 at 00:00 Ipratropium [place] (Atrovent 0.02% (Neb)) 0.5 mg Q6H RESP THERAPY PRN INH SHORTNESS OF BREATH; Start 08/28/18 at 00:00 Lansoprazole (Prevacid) 30 mg DAILY@0600 PO Last administered on 09/06/18 06:08; Admin Dose 30 MG; Start 08/28/18 at 06:00 Levalbuterol (Xopenex Hfa) 1 puff Q4H RESP THERAPY PRN INH WHEEZING AND SOB; Start 08/28/18 at 00:00 Miscellaneous Information (Pending Santyl Order For Wound Care) This patient dugan... PRN PRN XX WOUND CARE; Start 08/28/18 at 19:00 Multivitamins (Multivitamin) 30 ml DAILY GTB Last administered on 09/06/18 07:51; Admin Dose 30 ML; Start 08/30/18 at 09:00 Ascorbic Acid (Vitamin C) 500 mg DAILY GTB Last administered on 09/06/18 07:51; Admin Dose 500 MG; Start 08/30/18 at 09:00 Diltiazem HCl (Cardizem) 60 mg Q8 PO Last administered on 09/06/18 06:08; Admin Dose 60 MG; Start 08/31/18 at 22:00 Vancomycin HCl (Vancomycin Oral Syringe) 125 mg Q6 PO Last administered on 09/06/18 12:07; Admin Dose 125 MG; Start 09/01/18 at 18:00 Collagenase (Santyl) 1 applic DAILY TOP Last administered on 09/06/18 07:51; Admin Dose 1 APPLIC; Start 09/03/18 at 10:15 Heparin Sodium (Porcine) (Heparin (5000 Units/1ml)) 5,000 unit BID SC Last administered on 09/06/18 08:04; Admin Dose 5,000 UNIT; Start 09/04/18 at 21:00 Meropenem/Sodium Chloride 50 ml @ 100 mls/hr Q8 IVPB Last administered on 09/06/18at 05:13; Admin Dose 100 MLS/HR; Start 09/04/18 at 14:00 Sodium Hypochlorite (Dakins Diluted ()) 1 applic DAILY TP Last administered on 09/06/18at 07:52; Admin Dose 1 APPLIC; Start 09/05/18 at 14:30 Furosemide (Lasix) 20 mg DAILY NGT ; Start 09/06/18 at 09:00 SANDER WILL NP Sep 06, 2018 14:12
--- NOTE | 2018-09-06 16:36 | CONS ---
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 Encephalopathy CVA, hemorrhagic History of nonsustained ventricular tachycardia Continue Cardizem and titrate as needed Antibiotics as per infectious disease Lasix as tolerated Consultation Date/Type/Reason Admit Date/Time Aug 29, 2018 at 07:31 Initial Consult Date Type of Consult Cardiology Date/Time of Note DATE: 09/06/18 TIME: 16:35 24 HR Interval Summary Free Text/Dictation Seen and examined Exam/Review of Systems Vital Signs Vitals Vital Signs Date Temp Pulse Resp B/P (MAP) Pulse Ox O2 O2 Flow FiO2 Time Delivery Rate 09/06/18 98.0 98 32 119/64 100 Nasal 15:13 (82) Cannula 09/06/18 2.0 08:20 Intake and Output 09/05/18 09/05/18 09/06/18 1414:59 22:59 06:59 IntakeIntake Total 515 ml 1645 ml 830 ml OutputOutput Total 1700 ml 1000 ml 2200 ml BalanceBalance -1185 ml 645 ml -1370 ml Exam Constitutional: alert (No apparent distress) Head: normocephalic Respiratory: other (Coarse breath sounds bilaterally, no wheezing) Cardiovascular: irregular rhythm (S1-S2 heard) Gastrointestinal: soft, non-tender, bowel sounds Extremities: other (No significant edema) Labs Result Diagram: 09/02/18 0508 09/02/18 0508 Medications Medications Current Medications IV Flush (NS 3 ml) 3 ml PER PROTOCOL IV ; Start 08/28/18 at 00:00 Ondansetron HCl (Zofran Inj) 4 mg Q6H PRN IV NAUSEA/VOMITING; Start 08/28/18 at 00:00 Acetaminophen (Tylenol Tab) 650 mg Q6H PRN PO .PAIN 1-3 OR TEMP; Start 08/28/18 at 00:00 Amiodarone HCl (Cordarone) 200 mg BID PO Last administered on 09/06/18at 07:54; Admin Dose 200 MG; Start 08/28/18 at 00:00 Ipratropium [place] (Atrovent 0.02% (Neb)) 0.5 mg Q6H RESP THERAPY PRN INH SHORTNESS OF BREATH; Start 08/28/18 at 00:00 Lansoprazole (Prevacid) 30 mg DAILY@0600 PO Last administered on 09/06/18 06:08; Admin Dose 30 MG; Start 08/28/18 at 06:00 Levalbuterol (Xopenex Hfa) 1 puff Q4H RESP THERAPY PRN INH WHEEZING AND SOB; Start 08/28/18 at 00:00 Miscellaneous Information (Pending Santyl Order For Wound Care) This patient dugan... PRN PRN XX WOUND CARE; Start 08/28/18 at 19:00 Multivitamins (Multivitamin) 30 ml DAILY GTB Last administered on 09/06/18 07:51; Admin Dose 30 ML; Start 08/30/18 at 09:00 Ascorbic Acid (Vitamin C) 500 mg DAILY GTB Last administered on 09/06/18 07:51; Admin Dose 500 MG; Start 08/30/18 at 09:00 Diltiazem HCl (Cardizem) 60 mg Q8 PO Last administered on 09/06/18 15:39; Admin Dose 60 MG; Start 08/31/18 at 22:00 Vancomycin HCl (Vancomycin Oral Syringe) 125 mg Q6 PO Last administered on 09/06/18 12:07; Admin Dose 125 MG; Start 09/01/18 at 18:00 Collagenase (Santyl) 1 applic DAILY TOP Last administered on 09/06/18 07:51; Admin Dose 1 APPLIC; Start 09/03/18 at 10:15 Heparin Sodium (Porcine) (Heparin (5000 Units/1ml)) 5,000 unit BID SC Last administered on 09/06/18 08:04; Admin Dose 5,000 UNIT; Start 09/04/18 at 21:00 Meropenem/Sodium Chloride 50 ml @ 100 mls/hr Q8 IVPB Last administered on 09/06/18 15:08; Admin Dose 100 MLS/HR; Start 09/04/18 at 14:00 Sodium Hypochlorite (Dakins Diluted (40)) 1 applic DAILY TP Last administered on 09/06/18 07:52; Admin Dose 1 APPLIC; Start 09/05/18 at 14:30 Furosemide (Lasix) 20 mg DAILY NGT ; Start 09/06/18 at 09:00 Charan Cottrell DO Sep 06, 2018 16:36
[2018-09-07] VITALS (7 sets, daily range): BP systolic 95–117; BP diastolic 56–76; PULSE 98–116; RESP 18–22
[2018-09-07] MEDS: VANCOMYCIN HCL 250 MG/5ML POSYG PO SCH ×4 (00:53→18:06)
[2018-09-07] MEDS: DILTIAZEM 30 MG TAB PO SCH ×3 (05:58→21:12)
[2018-09-07] MEDS: MEROPENEM 1 GM/50ML(PMX) 50 ML IVPB SCH ×3 (05:59→21:09)
[2018-09-07] MEDS: LANSOPRAZOLE 30 MG CAP PO SCH (05:59)
[2018-09-07] MEDS: MULTIVITAMINS 30 ML CUP GTB SCH (08:51)
[2018-09-07] MEDS: ASCORBIC ACID 500 MG TAB GTB SCH (08:51)
[2018-09-07] MEDS: AMIODARONE 200 MG TAB PO SCH ×3 (08:51→21:00)
[2018-09-07] MEDS: COLLAGENASE 5 GM (UD JAR) TOP SCH (08:51)
[2018-09-07] MEDS: FUROSEMIDE 20 MG TAB NGT SCH (09:00)
[2018-09-07] MEDS: HEPARIN 5,000 UNIT/1 ML VIAL SC SCH ×2 (09:03→21:19)
[2018-09-07] MEDS: BALSAM PERU/CASTOR OIL 60 GM TUBE TOP SCH ×2 (09:18→21:10)
[2018-09-07] MEDS: DAKINS 0.0125%(1/40) 473 ML SOLUTION TP SCH (09:18)
--- NOTE | 2018-09-07 11:18 | CONS ---
Assessment/Plan Assessment/Plan Hospital Course (Demo Recall) No events over night, looks comfortable, no fevers Blood culture on admission grew MDR A.b. Wound culture growing E. coli multidrug-resistant Acinetobacter Pseudomonas and coag negative staph species Indwelling's: PEG Antimicrobials: IV Bactrim Meropenem PO Vanco Physical examination: Fragile elderly man who is in no distress. Head atraumatic normocephalic neck is supple chest rise symmetrical breath sounds diminished bases. Heart: S1-S2. Abdomen soft bowel sounds present. Extremities without cyanosis. Skin: Patient has a large unstageable sacral wound Assessment: 1. MDR gram-negative zeinab bacteremia possibly secondary to urinary tract infecti on versus sacral decub vs pulmonary 2. Unstageable sacral decubitus ulcer 3. Urinary tract infection per urinalysis 4. Hx C. difficile colitis 5. History of MRSA endocarditis, treated 6. History of CVA with chronic encephalopathy 7. Dysphagia status post PEG 8. Atrial fibrillation status post RVR Plan: Remains stable, continue abx, await for repeat bld cx, wound care per dat alvarez Consultation Date/Type/Reason Admit Date/Time Aug 29, 2018 at 07:31 Initial Consult Date Type of Consult id Date/Time of Note DATE: 09/07/18 TIME: 11:16 Exam/Review of Systems Exam Vitals Vital Signs Date Temp Pulse Resp B/P (MAP) Pulse Ox O2 O2 Flow FiO2 Time Delivery Rate 09/07/18 97.9 116 20 117/76 94 Nasal 11:02 (90) Cannula 09/07/18 2.0 08:00 Intake and Output 09/06/18 09/06/18 09/07/18 1515:00 23:00 07:00 IntakeIntake Total 515 ml 1180 ml OutputOutput Total 900 ml 2250 ml BalanceBalance 515 ml 280 ml -2250 ml Medications Medication Current Medications IV Flush (NS 3 ml) 3 ml PER PROTOCOL IV ; Start 08/28/18 at 00:00 Ondansetron HCl (Zofran Inj) 4 mg Q6H PRN IV NAUSEA/VOMITING; Start 08/28/18 at 00:00 Acetaminophen (Tylenol Tab) 650 mg Q6H PRN PO .PAIN 1-3 OR TEMP; Start 08/28/18 at 00:00 Amiodarone HCl (Cordarone) 200 mg BID PO Last administered on 09/06/18 20:27; Admin Dose 200 MG; Start 08/28/18 at 00:00 Ipratropium [place] (Atrovent 0.02% (Neb)) 0.5 mg Q6H RESP THERAPY PRN INH SHORTNESS OF BREATH; Start 08/28/18 at 00:00 Lansoprazole (Prevacid) 30 mg DAILY@0600 PO Last administered on 09/07/18 05:59; Admin Dose 30 MG; Start 08/28/18 at 06:00 Levalbuterol (Xopenex Hfa) 1 puff Q4H RESP THERAPY PRN INH WHEEZING AND SOB; Start 08/28/18 at 00:00 Miscellaneous Information (Pending Santyl Order For Wound Care) This patient dugan... PRN PRN XX WOUND CARE; Start 08/28/18 at 19:00 Multivitamins (Multivitamin) 30 ml DAILY GTB Last administered on 09/07/18 08:51; Admin Dose 30 ML; Start 08/30/18 at 09:00 Ascorbic Acid (Vitamin C) 500 mg DAILY GTB Last administered on 09/07/18 08:51; Admin Dose 500 MG; Start 08/30/18 at 09:00 Diltiazem HCl (Cardizem) 60 mg Q8 PO Last administered on 09/06/18 15:39; Admin Dose 60 MG; Start 08/31/18 at 22:00 Vancomycin HCl (Vancomycin Oral Syringe) 125 mg Q6 PO Last administered on 09/07/18 05:59; Admin Dose 125 MG; Start 09/01/18 at 18:00 Collagenase (Santyl) 1 applic DAILY TOP Last administered on 09/07/18 08:51; Admin Dose 1 APPLIC; Start 09/03/18 at 10:15 Heparin Sodium (Porcine) (Heparin (5000 Units/1ml)) 5,000 unit BID SC Last administered on 09/07/18 09:03; Admin Dose 5,000 UNIT; Start 09/04/18 at 21:00 Meropenem/Sodium Chloride 50 ml @ 100 mls/hr Q8 IVPB Last administered on 09/07/18 05:59; Admin Dose 100 MLS/HR; Start 09/04/18 at 14:00 Sodium Hypochlorite (Dakins Diluted (1/40)) 1 applic DAILY TP Last administered on 09/07/18at 09:18; Admin Dose 1 APPLIC; Start 09/05/18 at 14:30 Furosemide (Lasix) 20 mg DAILY NGT ; Start 09/06/18 at 09:00 SANDER WILL NP Sep 07, 2018 11:18
--- NOTE | 2018-09-07 11:22 | PN ---
Date/Time of Note Date/Time of Note DATE: 09/07/18 TIME: 11:20 Assessment/Plan VTE Prophylaxis Risk score (from Ns)>0 risk: 6 [place] [facility] [place]CD contraindicated: other Pharmacological prophylaxis: heparin Lines/Catheters IV Catheter Type (from [facility]): Peripheral IV Assessment/Plan Hospital Course S: Patient had no acute events overnight, tolerating tube feeds. O: VS- see below PE: General: Lying in bed, no acute distress presently Head: Normocephalic, atraumatic. Eyes: Pupils equally reactive, EOM intact ENT: Dry mucous membranes, trach in good position Neck: Supple, no lymphadenopathy Respiratory: Slightly distant breath sounds bilaterally Cardiovascular: No rubs or gallops Abdominal: Soft, non-tender, non-distended, no peritoneal sign MSK: No lower extremity bilaterally Neurologic: limited movement of all 4 extremities Assessment/Plan: 72-year-old male with atrial fibrillation, multifocal infarcts, dementia, chronic encephalopathy, psychosis/schizophrenia, MV endocarditis, dysphagia with G-tube who presents with: 1. Atrial fibrillation with RVR: Appears now rate controlled -Continue PO amiodarone and diltiazem -Follow-up further recommendations from cardiology team 2. Healthcare associated pneumonia: X-ray earlier this admission showed worsening consolidation -Follow-up ID recommendations, for now continue IV meropenem 3. Bacteremia -patient found with MDR gram-negative zeinab bacteremia possibly secondary to urinary tract infection versus sacral decub vs pulmonary. Also, sacral decub ulcer wound swab is polymicrobial. This may be contributing to transient bacteremia. -Per ID team, continue for now on meropenem, IV bactrim and PO vanco. 4. Dysphagia with G-tube -For now continue tube feeds 5. History of recent MV endocarditis - s/p course of IV vancomycin, completed 08/27-monitor for now 6. Stage III sacral decub ulcer -For now continue IV bactrim as above. -Follow-up recommendations from surgery team for any possible debridement or other intervention needed for this ulcer Dispo: Surgical evaluation of sacral decub ulcer followed by discharge back to SNF with ID-recommended antibiotics. Exam/Review of Systems Exam Vitals Vital Signs Date Temp Pulse Resp B/P (MAP) Pulse Ox O2 O2 Flow FiO2 Time Delivery Rate 09/07/18 97.9 116 20 117/76 94 Nasal 11:02 (90) Cannula 7/17/19 2.0 08:00 Intake and Output 09/06/18 09/06/18 09/07/18 1515:00 23:00 07:00 IntakeIntake Total 515 ml 1180 ml OutputOutput Total 900 ml 2250 ml BalanceBalance 515 ml 280 ml -2250 ml Medications Medication Current Medications IV Flush (NS 3 ml) 3 ml PER PROTOCOL IV ; Start 08/28/18 at 00:00 Ondansetron HCl (Zofran Inj) 4 mg Q6H PRN IV NAUSEA/VOMITING; Start 08/28/18 at 00:00 Acetaminophen (Tylenol Tab) 650 mg Q6H PRN PO .PAIN 1-3 OR TEMP; Start 08/28/18 at 00:00 Amiodarone HCl (Cordarone) 200 mg BID PO Last administered on 09/06/18at 20:27; Admin Dose 200 MG; Start 08/28/18 at 00:00 Ipratropium [place] (Atrovent 0.02% (Neb)) 0.5 mg Q6H RESP THERAPY PRN INH SHORTNESS OF BREATH; Start 08/28/18 at 00:00 Lansoprazole (Prevacid) 30 mg DAILY@0600 PO Last administered on 09/07/18at 05:59; Admin Dose 30 MG; Start 08/28/18 at 06:00 Levalbuterol (Xopenex Hfa) 1 puff Q4H RESP THERAPY PRN INH WHEEZING AND SOB; Start 08/28/18 at 00:00 [facility] This patient dugan... PRN PRN XX WOUND CARE; Start 08/28/18 at 19:00 Multivitamins (Multivitamin) 30 ml DAILY GTB Last administered on 09/07/18at 08:51; Admin Dose 30 ML; Start 08/30/18 at 09:00 Ascorbic Acid (Vitamin C) 500 mg DAILY GTB Last administered on 09/07/18at 08:51; Admin Dose 500 MG; Start 08/30/18 at 09:00 Diltiazem HCl (Cardizem) 60 mg Q8 PO Last administered on 09/06/18at 15:39; Admin Dose 60 MG; Start 08/31/18 at 22:00 Vancomycin HCl (Vancomycin Oral Syringe) 125 mg Q6 PO Last administered on 09/07/18 05:59; Admin Dose 125 MG; Start 09/01/18 at 18:00 Collagenase (Santyl) 1 applic DAILY TOP Last administered on 09/07/18 08:51; Admin Dose 1 APPLIC; Start 09/03/18 at 10:15 Heparin Sodium (Porcine) (Heparin (5000 Units/1ml)) 5,000 unit BID SC Last administered on 09/07/18 09:03; Admin Dose 5,000 UNIT; Start 09/04/18 at 21:00 Meropenem/Sodium Chloride 50 ml @ 100 mls/hr Q8 IVPB Last administered on 09/07/18 05:59; Admin Dose 100 MLS/HR; Start 09/04/18 at 14:00 Sodium Hypochlorite (Dakins Diluted (40)) 1 applic DAILY TP Last administered on 09/07/18 09:18; Admin Dose 1 APPLIC; Start 09/05/18 at 14:30 Furosemide (Lasix) 20 mg DAILY NGT ; Start 09/06/18 at 09:00 SOTO SHERMAN Sep 07, 2018 11:22
--- NOTE | 2018-09-07 14:10 | CONS ---
Assessment/Plan Assessment/Plan Hospital Course (Demo Recall) 1. Sacral wound:+ Wound cultures -debridement -local care -frequent turning and off-loading -low air loss mattress -vitamin c -short term zinc -optimize nutrition 2. Bacteremia: Repeat BC NGTD -Antibiotics per sensitivity -Follow cultures 3. Atrial fibrillation: Currently controlled rate -Per cardiology -Rate control -Anticoagulation 4. UTI: -abx per sensitivity -frequent bladder emptying/cath care 5. Pneumonia with small bilateral pleural effusions -Pulmonary toilet -Antibiotics -Fluid management 6. Malnutrition: -Optimize nutrition 7. Dysphagia status post PEG -Tube feeds with aspiration precautions 8. Diastolic CHF with c preserved EF, history of MV endocarditis status post antibiotics -Per cardiology -Cardiac optimization Thank you. Patient seen and examined in collaboration with Dr. Serge Cherry. Consultation Date/Type/Reason Admit Date/Time Aug 29, 2018 at 07:31 Date of Consultation: Sep 07, 2018 Type of Consult surgical Reason for Consultation Wounds Requesting Provider: SOTO SHERMAN Date/Time of Note DATE: 09/07/18 TIME: 13:54 Hx of Present Illness Darrell Tierney is a 72-year-old man with multiple comorbidities who [facility] where he was noted to be tachycardic. Reportedly, his heart rate was in the 140s with cardiac rhythm and rapid atrial fibrillation. He was seen by cardiology team oral amiodarone and Cardizem and currently his heart rate is controlled. Additionally, he was noted to have consolidation in bilateral lungs as well as pleural effusions. He was also noted to have a have UTI and bacteremia. He was also noted to have a sacral decubitus ulcer with positive wound cultures. No recent reports of fevers, chills, congested cough, chest pain, palpitations, nausea, vomiting, diarrhea, s eizure, rash. General surgery was asked to evaluate. 12 point review of systems was performed and is negative except for as stated in HPI Past Medical History Atrial fibrillation Multifocal infarcts Dementia Chronic encephalopathy Psychosis/schizophrenia Mitral valve endocarditis Dysphagia with G-tube Home Meds Reported Medications Vancomycin Hcl (Vancocin) 1 Gm Soln, 750 MG IV, VIAL 07/25/18 Meropenem (Merrem) 1 Gm Vial, 1 GM IV, VIAL 07/25/18 Levalbuterol* (Xopenex* HFA) 15 Gm Inha, 2 PUFFS INH Q4H PRN for WHEEZING AND SOB, INHALER 07/25/18 Lansoprazole* (Lansoprazole*) 30 Mg Capsule.dr, 30 MG PO DAILY, CAP 07/25/18 L Acidophil/B Lactis/B Longum (FLORAJEN3 CAPSULE) 460 Mg Capsule, 460 MG PO, CAP 07/25/18 Ipratropium [place] neb (Ipratropium [place] neb) 0.2 Mg/Ml Solution, 0.5 MG IH Q6H PRN for SHORTNESS OF BREATH, EA 07/25/18 Diltiazem Hcl* (Cardizem SR*) 60 Mg Capsr, 60 MG PO Q12, #60 CAP 07/25/18 Collagenase* (Santyl*) 30 Gm Oint..gm., 1 APPLIC TOP DAILY, #1 TUB 07/25/18 Balsam Hardwick/Meno Oil (Venelex Ointment) 60 Gm Oint..gm., 1 APPLIC TOP BID, #1 TUB 07/25/18 Amiodarone Hcl* (Amiodarone Hcl*) 200 Mg Tablet, 200 MG NGT BID, #60 TAB 07/25/18 Medications Current Medications IV Flush (NS 3 ml) 3 ml PER PROTOCOL IV ; Start 08/28/18 at 00:00 Ondansetron HCl (Zofran Inj) 4 mg Q6H PRN IV NAUSEA/VOMITING; Start 08/28/18 at 00:00 Acetaminophen (Tylenol Tab) 650 mg Q6H PRN PO .PAIN 1-3 OR TEMP; Start 08/28/18 at 00:00 Amiodarone HCl (Cordarone) 200 mg BID PO Last administered on 09/06/18at 20:27; Admin Dose 200 MG; Start 08/28/18 at 00:00 Ipratropium [place] (Atrovent 0.02% (Neb)) 0.5 mg Q6H RESP THERAPY PRN INH SHORTNESS OF BREATH; Start 08/28/18 at 00:00 Lansoprazole (Prevacid) 30 mg DAILY@0600 PO Last administered on 09/07/18at 05:59; Admin Dose 30 MG; Start 08/28/18 at 06:00 Levalbuterol (Xopenex Hfa) 1 puff Q4H RESP THERAPY PRN INH WHEEZING AND SOB; Start 08/28/18 at 00:00 Miscellaneous Information (Pending Santyl Order For Wound Care) This patient dugan... PRN PRN XX WOUND CARE; Start 08/28/18 at 19:00 Multivitamins (Multivitamin) 30 ml DAILY GTB Last administered on 09/07/18 08:51; Admin Dose 30 ML; Start 08/30/18 at 09:00 Ascorbic Acid (Vitamin C) 500 mg DAILY GTB Last administered on 09/07/18at 08:51; Admin Dose 500 MG; Start 08/30/18 at 09:00 Diltiazem HCl (Cardizem) 60 mg Q8 PO Last administered on 09/07/18 13:22; Admin Dose 60 MG; Start 08/31/18 at 22:00 Vancomycin HCl (Vancomycin Oral Syringe) 125 mg Q6 PO Last administered on 09/07/18at 12:36; Admin Dose 125 MG; Start 09/01/18 at 18:00 Collagenase (Santyl) 1 applic DAILY TOP Last administered on 09/07/18 08:51; Admin Dose 1 APPLIC; Start 09/03/18 at 10:15 Heparin Sodium (Porcine) (Heparin (5000 Units/1ml)) 5,000 unit BID SC Last administered on 09/07/18 09:03; Admin Dose 5,000 UNIT; Start 09/04/18 at 21:00 Meropenem/Sodium Chloride 50 ml @ 100 mls/hr Q8 IVPB Last administered on 09/07/18at 13:21; Admin Dose 100 MLS/HR; Start 09/04/18 at 14:00 Sodium Hypochlorite (Dakins Diluted (1/40)) 1 applic DAILY TP Last administered on 09/07/18 09:18; Admin Dose 1 APPLIC; Start 09/05/18 at 14:30 Furosemide (Lasix) 20 mg DAILY NGT ; Start 09/06/18 at 09:00 Allergies: Coded Allergies: Penicillins (Verified Allergy, Unknown, 08/18/18) Past Surgical History As above Past Surgical Hx: other Family History Significant Family History: no pertinent family hx Social History Alcohol Use: none Smoking Status: Unknown if ever smoked Exam/Review of Systems Exam Vitals Vital Signs Date Temp Pulse Resp B/P (MAP) Pulse Ox O2 O2 Flow FiO2 Time Delivery Rate 09/07/18 97.9 116 20 117/76 94 Nasal 11:02 (90) Cannula 09/07/18 2.0 08:00 Intake and Output 09/06/18 09/06/18 09/07/18 1414:59 22:59 06:59 IntakeIntake Total 515 ml 1180 ml OutputOutput Total 900 ml 2250 ml BalanceBalance 515 ml 280 ml -2250 ml Constitutional: alert, oriented (Forgetful), well developed, other Psych: nl mood/affect, anxiety (Minimal) Head: normocephalic, atraumatic Eyes: nl conjunctiva, EOMI, nl lids, nl sclera ENMT: nl external ears & nose, nl lips & teeth, mucosa pink and moist Neck: supple, non-tender; No jvd Respiratory: normal air movement; No congested cough, No labored breathing Cardiovascular: regular rate and rhythm, nl pulses Gastrointestinal: soft, non-tender, other (PEG) Genitourinary - Male: nl penis, nl scrotum Musculoskeletal: other (Muscle atrophy bilateral lower extremities); No nl extremities to inspection Extremities: normal pulses; No pitting pedal edema Neurological: nl speech; No nl strength (Generalized weakness) Skin: other (Sacral wound: Slough, minimal drainage, no odor, minimal periwound erythema); No rash or lesions Medications Medication Current Medications IV Flush (NS 3 ml) 3 ml PER PROTOCOL IV ; Start 08/28/18 at 00:00 Ondansetron HCl (Zofran Inj) 4 mg Q6H PRN IV NAUSEA/VOMITING; Start 08/28/18 at 00:00 Acetaminophen (Tylenol Tab) 650 mg Q6H PRN PO .PAIN 1-3 OR TEMP; Start 08/28/18 at 00:00 Amiodarone HCl (Cordarone) 200 mg BID PO Last administered on 09/06/18at 20:27; Admin Dose 200 MG; Start 08/28/18 at 00:00 Ipratropium [place] (Atrovent 0.02% (Neb)) 0.5 mg Q6H RESP THERAPY PRN INH SHORTNESS OF BREATH; Start 08/28/18 at 00:00 Lansoprazole (Prevacid) 30 mg DAILY@0600 PO Last administered on 09/07/18at 05:59; Admin Dose 30 MG; Start 08/28/18 at 06:00 Levalbuterol (Xopenex Hfa) 1 puff Q4H RESP THERAPY PRN INH WHEEZING AND SOB; Start 08/28/18 at 00:00 Miscellaneous Information (Pending Santyl Order For Wound Care) This patient dugan... PRN PRN XX WOUND CARE; Start 08/28/18 at 19:00 Multivitamins (Multivitamin) 30 ml DAILY GTB Last administered on 09/07/18 08:51; Admin Dose 30 ML; Start 08/30/18 at 09:00 Ascorbic Acid (Vitamin C) 500 mg DAILY GTB Last administered on 09/07/18 08:51; Admin Dose 500 MG; Start 08/30/18 at 09:00 Diltiazem HCl (Cardizem) 60 mg Q8 PO Last administered on 09/07/18 13:22; Admin Dose 60 MG; Start 08/31/18 at 22:00 Vancomycin HCl (Vancomycin Oral Syringe) 125 mg Q6 PO Last administered on 09/07/18 12:36; Admin Dose 125 MG; Start 09/01/18 at 18:00 Collagenase (Santyl) 1 applic DAILY TOP Last administered on 09/07/18 08:51; Admin Dose 1 APPLIC; Start 09/03/18 at 10:15 Heparin Sodium (Porcine) (Heparin (5000 Units/1ml)) 5,000 unit BID SC Last administered on 09/07/18 09:03; Admin Dose 5,000 UNIT; Start 09/04/18 at 21:00 Meropenem/Sodium Chloride 50 ml @ 100 mls/hr Q8 IVPB Last administered on 09/07 13:21; Admin Dose 100 MLS/HR; Start 09/04/18 at 14:00 Sodium Hypochlorite (Dakins Diluted (1/40)) 1 applic DAILY TP Last administered on 09/07/18 09:18; Admin Dose 1 APPLIC; Start 09/05/18 at 14:30 Furosemide (Lasix) 20 mg DAILY NGT ; Start 09/06/18 at 09:00 AUSTEN WESTON NP Sep 07, 2018 14:04
[2018-09-07] MEDS ORDERED: LIDOCAINE 2%/EPI (MDV) 20ML INJ INJ ONE (14:30)
[2018-09-07] MEDS ORDERED: SILVER NITRATE SWAB TOP ONE (14:30)
--- NOTE | 2018-09-07 17:08 | CONS ---
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 Encephalopathy CVA, hemorrhagic History of nonsustained ventricular tachycardia Continue Cardizem and titrate as needed Antibiotics as per infectious disease Lasix as tolerated Consultation Date/Type/Reason Admit Date/Time Aug 29, 2018 at 07:31 Initial Consult Date Type of Consult Cardiology Requesting Provider: SOTO SHERMAN Date/Time of Note DATE: 09/07/18 TIME: 17:08 24 HR Interval Summary Free Text/Dictation Patient seen and examined Exam/Review of Systems Vital Signs Vitals Vital Signs Date Temp Pulse Resp B/P (MAP) Pulse Ox O2 O2 Flow FiO2 Time Delivery Rate 09/07/18 95 5.0 16:46 09/07/18 97.7 103 20 99/56 (70) Nasal 14:56 Cannula Intake and Output 09/06/18 09/06/18 09/07/18 1515:00 23:00 07:00 IntakeIntake Total 515 ml 1180 ml OutputOutput Total 900 ml 2250 ml BalanceBalance 515 ml 280 ml -2250 ml Exam Constitutional: alert (Following commands, no apparent distress) Head: normocephalic Respiratory: other (Coarse breath sounds bilaterally, no wheezing) Cardiovascular: irregular rhythm (S1-S2 heard) Gastrointestinal: soft, non-tender, bowel sounds Extremities: other (No edema) Medications Medications Current Medications IV Flush (NS 3 ml) 3 ml PER PROTOCOL IV ; Start 08/28/18 at 00:00 Ondansetron HCl (Zofran Inj) 4 mg Q6H PRN IV NAUSEA/VOMITING; Start 08/28/18 at 00:00 Acetaminophen (Tylenol Tab) 650 mg Q6H PRN PO .PAIN 1-3 OR TEMP; Start 08/28/18 at 00:00 Amiodarone HCl (Cordarone) 200 mg BID PO Last administered on 09/06/18at 20:27; Admin Dose 200 MG; Start 08/28/18 at 00:00 Ipratropium [place] (Atrovent 0.02% (Neb)) 0.5 mg Q6H RESP THERAPY PRN INH SHORTNESS OF BREATH; Start 08/28/18 at 00:00 Lansoprazole (Prevacid) 30 mg DAILY@0600 PO Last administered on 09/07/18 05:59; Admin Dose 30 MG; Start 08/28/18 at 06:00 Levalbuterol (Xopenex Hfa) 1 puff Q4H RESP THERAPY PRN INH WHEEZING AND SOB; Start 08/28/18 at 00:00 Miscellaneous Information (Pending Santyl Order For Wound Care) This patient dugan... PRN PRN XX WOUND CARE; Start 08/28/18 at 19:00 Multivitamins (Multivitamin) 30 ml DAILY GTB Last administered on 09/07/18 08:51; Admin Dose 30 ML; Start 08/30/18 at 09:00 Ascorbic Acid (Vitamin C) 500 mg DAILY GTB Last administered on 09/07/18 08:51; Admin Dose 500 MG; Start 08/30/18 at 09:00 Diltiazem HCl (Cardizem) 60 mg Q8 PO Last administered on 09/07/18 13:22; Admin Dose 60 MG; Start 08/31/18 at 22:00 Vancomycin HCl (Vancomycin Oral Syringe) 125 mg Q6 PO Last administered on 09/07/18 12:36; Admin Dose 125 MG; Start 09/01/18 at 18:00 Collagenase (Santyl) 1 applic DAILY TOP Last administered on 09/07/18 08:51; Admin Dose 1 APPLIC; Start 09/03/18 at 10:15 Heparin Sodium (Porcine) (Heparin (5000 Units/1ml)) 5,000 unit BID SC Last administered on 09/07/18 09:03; Admin Dose 5,000 UNIT; Start 09/04/18 at 21:00 Meropenem/Sodium Chloride 50 ml @ 100 mls/hr Q8 IVPB Last administered on 09/07/18 13:21; Admin Dose 100 MLS/HR; Start 09/04/18 at 14:00 Sodium Hypochlorite (Dakins Diluted (40)) 1 applic DAILY TP Last administered on 09/07/18 09:18; Admin Dose 1 APPLIC; Start 09/05/18 at 14:30 Furosemide (Lasix) 20 mg DAILY NGT ; Start 09/06/18 at 09:00 Charan Cottrell DO Sep 07, 2018 17:08
[2018-09-08] MEDS: VANCOMYCIN HCL 250 MG/5ML POSYG PO SCH ×5 (00:23→23:18)
[2018-09-08 04:03] VITALS: BP 103/59; PULSE 105; RESP 18
[2018-09-08] MEDS: DILTIAZEM 30 MG TAB PO SCH ×3 (05:01→21:12)
[2018-09-08] MEDS: MEROPENEM 1 GM/50ML(PMX) 50 ML IVPB SCH ×3 (05:01→21:10)
[2018-09-08] MEDS: LANSOPRAZOLE 30 MG CAP PO SCH (05:01)
[2018-09-08 07:53] VITALS: BP 90/62; PULSE 99; RESP 28
[2018-09-08] MEDS: FUROSEMIDE 20 MG TAB NGT SCH (09:00)
[2018-09-08] MEDS: MULTIVITAMINS 30 ML CUP GTB SCH (09:17)
[2018-09-08] MEDS: ASCORBIC ACID 500 MG TAB GTB SCH (09:18)
[2018-09-08] MEDS: AMIODARONE 200 MG TAB PO SCH ×2 (09:18→21:12)
[2018-09-08] MEDS: DAKINS 0.0125%(1/40) 473 ML SOLUTION TP SCH (09:19)
[2018-09-08] MEDS: COLLAGENASE 5 GM (UD JAR) TOP SCH (09:19)
[2018-09-08] MEDS: BALSAM PERU/CASTOR OIL 60 GM TUBE TOP SCH ×2 (09:20→21:12)
[2018-09-08] MEDS: HEPARIN 5,000 UNIT/1 ML VIAL SC SCH ×2 (09:27→21:19)
--- NOTE | 2018-09-08 10:43 | PN ---
Date/Time of Note Date/Time of Note DATE: 09/08/18 TIME: 10:40 Assessment/Plan Lines/Catheters IV Catheter Type (from [facility]): Peripheral IV Jimenez in Place (from [facility]): No ([facility] CATH) Assessment/Plan Chief Complaint/Hosp Course 1. Sacral wound:+ Wound cultures -debridement (still pending consent) -local care -frequent turning and off-loading -low air loss mattress -vitamin c -short term zinc -optimize nutrition 2. Bacteremia: Repeat BC NGTD -Antibiotics per sensitivity -Follow cultures 3. Atrial fibrillation: controlled/uncontrolled rate -Per cardiology -Rate control -Anticoagulation 4. UTI: -abx per sensitivity -frequent bladder emptying/cath care 5. Pneumonia with small bilateral pleural effusions -Pulmonary toilet -Antibiotics -Fluid management 6. Malnutrition: -Optimize nutrition 7. Dysphagia status post PEG -Tube feeds with aspiration precautions 8. Diastolic CHF with c preserved EF, history of MV endocarditis status post antibiotics -Per cardiology -Cardiac optimization Thank you. Patient seen and examined in collaboration with Dr. Serge Cherry. Subjective 24 Hr Interval Summary Somnolent. Continues to have liquid stool per rectal tube. No fevers, chills, sob, congested cough, cp, palpitations, dugan, dizziness, n/v/d/dysuria. Tachycardia Exam/Review of Systems Vital Signs Vitals Vital Signs Date Temp Pulse Resp B/P (MAP) Pulse Ox O2 O2 Flow FiO2 Time Delivery Rate 09/08/18 98 5.0 08:01 09/08/18 97.8 99 28 90/62 (71) Nasal 07:53 Cannula Intake and Output 09/07/18 09/07/18 09/08/18 1515:00 23:00 07:00 IntakeIntake Total 1180 ml 1130 ml 1030 ml OutputOutput Total 2300 ml 500 ml 300 ml BalanceBalance -1120 ml 630 ml 730 ml Exam Free Text/Dictation Constitutional: alert, oriented (Forgetful), well developed, other Psych: nl mood/affect, anxiety (Minimal) Head: normocephalic, atraumatic Eyes: nl conjunctiva, EOMI, nl lids, nl sclera ENMT: nl external ears & nose, nl lips & teeth, mucosa pink and moist Neck: supple, non-tender; No jvd Respiratory: normal air movement; No congested cough, No labored breathing Cardiovascular: regular rate and rhythm, nl pulses Gastrointestinal: soft, non-tender, other (PEG), rectal tube (liquid stool) Genitourinary - Male: nl penis, nl scrotum Musculoskeletal: other (Muscle atrophy bilateral lower extremities); No nl extremities to inspection Extremities: normal pulses; No pitting pedal edema Neurological: nl speech; No nl strength (Generalized weakness) Skin: other (Sacral wound: Slough, minimal drainage, no odor, minimal periwound erythema); No rash or lesions AUSTEN WESTON NP Sep 08, 2018 10:43
--- NOTE | 2018-09-08 11:05 | PN ---
Date/Time of Note Date/Time of Note DATE: 09/08/18 TIME: 11:04 Assessment/Plan VTE Prophylaxis Risk score (from Ns)>0 risk: 5 SCD applied (from [facility]): No SCD contraindicated: other Pharmacological prophylaxis: heparin Lines/Catheters IV Catheter Type (from [facility]): [place] Urinary Cath still in place: No ([facility] CATH) Assessment/Plan Hospital Course S: Patient seen by surgery team yesterday and today. No acute events overnight. Tolerating tube feeds. O: VS- see below PE: General: Lying in bed, no acute distress presently Head: Normocephalic, atraumatic. Eyes: Pupils equally reactive, EOM intact ENT: Dry mucous membranes, trach in good position Neck: Supple, no lymphadenopathy Respiratory: Slightly distant breath sounds bilaterally Cardiovascular: No rubs or gallops Abdominal: Soft, non-tender, non-distended, no peritoneal sign MSK: No lower extremity bilaterally Neurologic: limited movement of all 4 extremities Assessment/Plan: 72-year-old male with atrial fibrillation, multifocal infarcts, dementia, chronic encephalopathy, psychosis/schizophrenia, MV endocarditis, dysphagia with G-tube who presents with: 1. Atrial fibrillation with RVR: Appears now rate controlled -Continue PO amiodarone and diltiazem -Follow-up further recommendations from cardiology team 2. Healthcare associated pneumonia: X-ray earlier this admission showed worsening consolidation -Follow-up ID recommendations, for now continue IV meropenem 3. Bacteremia -patient found with MDR gram-negative zeinab bacteremia possibly secondary to urinary tract infection versus sacral decub vs pulmonary. Also, sacral decub ulcer wound swab is polymicrobial. This may be contributing to transient bacteremia. -Per ID team, continue for now on meropenem, IV bactrim and PO vanco. 4. Dysphagia with G-tube -For now continue tube feeds 5. History of recent MV endocarditis - s/p course of IV vancomycin, completed 08/27-monitor for now 6. Stage III sacral decub ulcer -For now continue IV bactrim as above. -Follow-up recommendations from surgery team for debridement, they are planning on this but waiting for final consent. Dispo: Surgical evaluation of sacral decub ulcer followed by discharge back to SNF with ID-recommended antibiotics. Exam/Review of Systems Exam Vitals Vital Signs Date Temp Pulse Resp B/P (MAP) Pulse Ox O2 O2 Flow FiO2 Time Delivery Rate 09/08/18 98 5.0 08:01 09/08/18 97.8 99 28 90/62 (71) Nasal 07:53 Cannula Intake and Output 09/07/18 09/07/18 09/08/18 1515:00 23:00 07:00 IntakeIntake Total 1180 ml 1130 ml 1030 ml OutputOutput Total 2300 ml 500 ml 300 ml BalanceBalance -1120 ml 630 ml 730 ml Medications Medication Current Medications IV Flush (NS 3 ml) 3 ml PER PROTOCOL IV ; Start 08/28/18 at 00:00 Ondansetron HCl (Zofran Inj) 4 mg Q6H PRN IV NAUSEA/VOMITING; Start 08/28/18 at 00:00 Acetaminophen (Tylenol Tab) 650 mg Q6H PRN PO .PAIN 1-3 OR TEMP; Start 08/28/18 at 00:00 Amiodarone HCl (Cordarone) 200 mg BID PO Last administered on 09/08/18at 09:18; Admin Dose 200 MG; Start 08/28/18 at 00:00 Ipratropium [place] (Atrovent 0.02% (Neb)) 0.5 mg Q6H RESP THERAPY PRN INH SHORTNESS OF BREATH; Start 08/28/18 at 00:00 Lansoprazole (Prevacid) 30 mg DAILY@0600 PO Last administered on 09/08/18at 05:01; Admin Dose 30 MG; Start 08/28/18 at 06:00 Levalbuterol (Xopenex Hfa) 1 puff Q4H RESP THERAPY PRN INH WHEEZING AND SOB; Start 08/28/18 at 00:00 Miscellaneous Information (Pending Santyl Order For Wound Care) This patient dugan... PRN PRN XX WOUND CARE; Start 08/28/18 at 19:00 Multivitamins (Multivitamin) 30 ml DAILY GTB Last administered on 09/08/18at 09:17; Admin Dose 30 ML; Start 08/30/18 at 09:00 Ascorbic Acid (Vitamin C) 500 mg DAILY GTB Last administered on 09/08/18at 09:18; Admin Dose 500 MG; Start 08/30/18 at 09:00 Diltiazem HCl (Cardizem) 60 mg Q8 PO Last administered on 7/17/19at 13:22; Admin Dose 60 MG; Start 08/31/18 at 22:00 Vancomycin HCl (Vancomycin Oral Syringe) 125 mg Q6 PO Last administered on 09/08/18 05:01; Admin Dose 125 MG; Start 09/01/18 at 18:00 Collagenase (Santyl) 1 applic DAILY TOP Last administered on 09/08/18 09:19; Admin Dose 1 APPLIC; Start 09/03/18 at 10:15 Heparin Sodium (Porcine) (Heparin (5000 Units/1ml)) 5,000 unit BID SC Last administered on 09/08/18 09:27; Admin Dose 5,000 UNIT; Start 09/04/18 at 21:00 Meropenem/Sodium Chloride 50 ml @ 100 mls/hr Q8 IVPB Last administered on 09/08/18 05:01; Admin Dose 100 MLS/HR; Start 09/04/18 at 14:00 Sodium Hypochlorite (Dakins Diluted (/40)) 1 applic DAILY TP Last administered on 09/08/18 09:19; Admin Dose 1 APPLIC; Start 09/05/18 at 14:30 Furosemide (Lasix) 20 mg DAILY NGT ; Start 09/06/18 at 09:00 SOTO SHERMAN Sep 08, 2018 11:05
[2018-09-08 11:25] VITALS: BP 123/65; PULSE 96; RESP 28
[2018-09-08 15:13] VITALS: BP 109/52; PULSE 82; RESP 24
--- NOTE | 2018-09-08 15:31 | CONS ---
Assessment/Plan Assessment/Plan Hospital Course (Demo Recall) Awake, looks comfortable, no fevers Blood culture on admission grew MDR A.b. Wound culture growing E. coli multidrug-resistant Acinetobacter Pseudomonas and coag negative staph species Indwelling's: PEG Antimicrobials: IV Bactrim Meropenem PO Vanco Physical examination: Fragile elderly man who is in no distress. Head atraumatic normocephalic neck is supple chest rise symmetrical breath sounds diminished bases. Heart: S1-S2. Abdomen soft bowel sounds present. Extremities without cyanosis. Skin: Patient has a large unstageable sacral wound Assessment: 1. MDR gram-negative zeinab bacteremia possibly secondary to urinary tract infection versus sacral decub vs pulmonary 2. Unstageable sacral decubitus ulcer 3. Urinary tract infection per urinalysis 4. Hx C. difficile colitis 5. History of MRSA endocarditis, treated 6. History of CVA with chronic encephalopathy 7. Dysphagia status post PEG 8. Atrial fibrillation status post RVR Plan: Remains stable, repeat bld cx neg, continue abx, awaiting for surgical eval Consultation Date/Type/Reason Admit Date/Time Aug 29, 2018 at 07:31 Initial Consult Date Type of Consult id Requesting Provider: SOTO SHERMAN Date/Time of Note DATE: 09/08/18 TIME: 15:30 Exam/Review of Systems Exam Vitals Vital Signs Date Temp Pulse Resp B/P (MAP) Pulse Ox O2 O2 Flow FiO2 Time Delivery Rate 09/08/18 98.0 82 24 109/52 100 Nasal 15:13 (71) Cannula 09/08/18 5.0 08:01 Intake and Output 09/07/18 09/07/18 09/08/18 1515:00 23:00 07:00 IntakeIntake Total 1180 ml 1130 ml 1030 ml OutputOutput Total 2300 ml 500 ml 300 ml BalanceBalance -1120 ml 630 ml 730 ml Medications Medication Current Medications IV Flush (NS 3 ml) 3 ml PER PROTOCOL IV ; Start 08/28/18 at 00:00 Ondansetron HCl (Zofran Inj) 4 mg Q6H PRN IV NAUSEA/VOMITING; Start 08/28/18 at 00:00 Acetaminophen (Tylenol Tab) 650 mg Q6H PRN PO .PAIN 1-3 OR TEMP; Start 08/28/18 at 00:00 Amiodarone HCl (Cordarone) 200 mg BID PO Last administered on 09/08/18 09:18; Admin Dose 200 MG; Start 08/28/18 at 00:00 Ipratropium [place] (Atrovent 0.02% (Neb)) 0.5 mg Q6H RESP THERAPY PRN INH SHORTNESS OF BREATH; Start 08/28/18 at 00:00 Lansoprazole (Prevacid) 30 mg DAILY@0600 PO Last administered on 09/08/18at 05:01; Admin Dose 30 MG; Start 08/28/18 at 06:00 Levalbuterol (Xopenex Hfa) 1 puff Q4H RESP THERAPY PRN INH WHEEZING AND SOB; Start 08/28/18 at 00:00 Miscellaneous Information (Pending Santyl Order For Wound Care) This patient dugan... PRN PRN XX WOUND CARE; Start 08/28/18 at 19:00 Multivitamins (Multivitamin) 30 ml DAILY GTB Last administered on 09/08/18 09:17; Admin Dose 30 ML; Start 08/30/18 at 09:00 Ascorbic Acid (Vitamin C) 500 mg DAILY GTB Last administered on 09/08/18 09:18; Admin Dose 500 MG; Start 08/30/18 at 09:00 Diltiazem HCl (Cardizem) 60 mg Q8 PO Last administered on 09/08/18 13:28; Admin Dose 60 MG; Start 08/31/18 at 22:00 Vancomycin HCl (Vancomycin Oral Syringe) 125 mg Q6 PO Last administered on 09/08/18 12:18; Admin Dose 125 MG; Start 09/01/18 at 18:00 Collagenase (Santyl) 1 applic DAILY TOP Last administered on 09/08/18 09:19; Admin Dose 1 APPLIC; Start 09/03/18 at 10:15 Heparin Sodium (Porcine) (Heparin (5000 Units/1ml)) 5,000 unit BID SC Last administered on 09/08/18 09:27; Admin Dose 5,000 UNIT; Start 09/04/18 at 21:00 Meropenem/Sodium Chloride 50 ml @ 100 mls/hr Q8 IVPB Last administered on 09/08/18 13:33; Admin Dose 100 MLS/HR; Start 7/14/19 at 14:00 Sodium Hypochlorite (Dakins Diluted (40)) 1 applic DAILY TP Last administered on 09/08/18at 09:19; Admin Dose 1 APPLIC; Start 09/05/18 at 14:30 Furosemide (Lasix) 20 mg DAILY NGT ; Start 09/06/18 at 09:00 SANDER WILL NP Sep 08, 2018 15:31
--- NOTE | 2018-09-08 16:34 | CONS ---
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 Encephalopathy CVA, hemorrhagic History of nonsustained ventricular tachycardia Continue Cardizem and titrate as needed Antibiotics as per infectious disease Lasix as tolerated Consultation Date/Type/Reason Admit Date/Time Aug 29, 2018 at 07:31 Initial Consult Date Type of Consult Cardiology Requesting Provider: SOTO SHERMAN Date/Time of Note DATE: 09/08/18 TIME: 16:33 24 HR Interval Summary Free Text/Dictation Patient seen and examined Exam/Review of Systems Vital Signs Vitals Vital Signs Date Temp Pulse Resp B/P (MAP) Pulse Ox O2 O2 Flow FiO2 Time Delivery Rate 09/08/18 98.0 82 24 109/52 100 Nasal 15:13 (71) Cannula 09/08/18 5.0 08:01 Intake and Output 09/07/18 09/07/18 09/08/18 1515:00 23:00 07:00 IntakeIntake Total 1180 ml 1130 ml 1030 ml OutputOutput Total 2300 ml 500 ml 300 ml BalanceBalance -1120 ml 630 ml 730 ml Exam Exam Sleeping, no apparent distress Head: normocephalic Respiratory: other (Coarse breath sounds bilaterally, no wheezing) Cardiovascular: irregular rhythm (S1-S2 heard) Gastrointestinal: soft, non-tender, bowel sounds Extremities: other (No significant edema) Medications Medications Current Medications IV Flush (NS 3 ml) 3 ml PER PROTOCOL IV ; Start 08/28/18 at 00:00 Ondansetron HCl (Zofran Inj) 4 mg Q6H PRN IV NAUSEA/VOMITING; Start 08/28/18 at 00:00 Acetaminophen (Tylenol Tab) 650 mg Q6H PRN PO .PAIN 1-3 OR TEMP; Start 08/28/18 at 00:00 Amiodarone HCl (Cordarone) 200 mg BID PO Last administered on 09/08/18at 09:18; Admin Dose 200 MG; Start 08/28/18 at 00:00 Ipratropium [place] (Atrovent 0.02% (Neb)) 0.5 mg Q6H RESP THERAPY PRN INH SHORTNESS OF BREATH; Start 08/28/18 at 00:00 Lansoprazole (Prevacid) 30 mg DAILY@0600 PO Last administered on 09/08/18 05:01; Admin Dose 30 MG; Start 08/28/18 at 06:00 Levalbuterol (Xopenex Hfa) 1 puff Q4H RESP THERAPY PRN INH WHEEZING AND SOB; Start 08/28/18 at 00:00 Miscellaneous Information (Pending Santyl Order For Wound Care) This patient dugan... PRN PRN XX WOUND CARE; Start 08/28/18 at 19:00 Multivitamins (Multivitamin) 30 ml DAILY GTB Last administered on 09/08/18 09:17; Admin Dose 30 ML; Start 08/30/18 at 09:00 Ascorbic Acid (Vitamin C) 500 mg DAILY GTB Last administered on 09/08/18 09:18; Admin Dose 500 MG; Start 08/30/18 at 09:00 Diltiazem HCl (Cardizem) 60 mg Q8 PO Last administered on 09/08/18 13:28; Admin Dose 60 MG; Start 08/31/18 at 22:00 Vancomycin HCl (Vancomycin Oral Syringe) 125 mg Q6 PO Last administered on 09/08/18 12:18; Admin Dose 125 MG; Start 09/01/18 at 18:00 Collagenase (Santyl) 1 applic DAILY TOP Last administered on 09/08/18 09:19; Admin Dose 1 APPLIC; Start 09/03/18 at 10:15 Heparin Sodium (Porcine) (Heparin (5000 Units/1ml)) 5,000 unit BID SC Last administered on 09/08/18 09:27; Admin Dose 5,000 UNIT; Start 09/04/18 at 21:00 Meropenem/Sodium Chloride 50 ml @ 100 mls/hr Q8 IVPB Last administered on 09/08/18 13:33; Admin Dose 100 MLS/HR; Start 09/04/18 at 14:00 Sodium Hypochlorite (Dakins Diluted (40)) 1 applic DAILY TP Last administered on 09/08/18 09:19; Admin Dose 1 APPLIC; Start 09/05/18 at 14:30 Furosemide (Lasix) 20 mg DAILY NGT ; Start 09/06/18 at 09:00 Charan Cottrell DO Sep 08, 2018 16:34
[2018-09-08 19:32] VITALS: BP 141/62; PULSE 96; RESP 26
--- NOTE | 2018-09-08 20:54 | QN ---
Documentation Comment Came to proceed with excisional debridement at the bedside and was advised that no consent available yet. Family unreachable. I attempted to contact family without success as well. ANGIE GORDON MD Sep 08, 2018 20:54
[2018-09-08 23:41] VITALS: BP 131/63; PULSE 91; RESP 25
[2018-09-09] VITALS (7 sets, daily range): BP systolic 110–125; BP diastolic 55–62; PULSE 81–108; RESP 21–26
[2018-09-09] MEDS: VANCOMYCIN HCL 250 MG/5ML POSYG PO SCH ×3 (05:10→17:02)
[2018-09-09] MEDS: LANSOPRAZOLE 30 MG CAP PO SCH (05:10)
[2018-09-09] MEDS: MEROPENEM 1 GM/50ML(PMX) 50 ML IVPB SCH ×3 (05:10→23:02)
[2018-09-09] MEDS: DILTIAZEM 30 MG TAB PO SCH ×3 (06:00→23:03)
[2018-09-09] MEDS: ASCORBIC ACID 500 MG TAB GTB SCH (08:26)
[2018-09-09] MEDS: MULTIVITAMINS 30 ML CUP GTB SCH (08:26)
[2018-09-09] MEDS: FUROSEMIDE 20 MG TAB NGT SCH (08:26)
[2018-09-09] MEDS: COLLAGENASE 5 GM (UD JAR) TOP SCH (08:27)
[2018-09-09] MEDS: BALSAM PERU/CASTOR OIL 60 GM TUBE TOP SCH (08:27)
[2018-09-09] MEDS: AMIODARONE 200 MG TAB PO SCH ×2 (08:27→23:03)
[2018-09-09] MEDS: DAKINS 0.0125%(1/40) 473 ML SOLUTION TP SCH (08:27)
[2018-09-09] MEDS: HEPARIN 5,000 UNIT/1 ML VIAL SC SCH ×2 (09:16→23:15)
--- NOTE | 2018-09-09 10:25 | PN ---
Date/Time of Note Date/Time of Note DATE: 09/09/18 TIME: 10:18 Assessment/Plan Lines/Catheters IV Catheter Type (from Nrs): Saline Lock [place] in Place (from Nrs): No (CONDOM CATH) Assessment/Plan Chief Complaint/Hosp Course 1. Sacral wound:+ Wound cultures -debridement (still pending consent- will need clarification on responsible green party, daughter and brother are not comfortable making decisions) -continue local care -frequent turning and off-loading -low air loss mattress -vitamin c -short term zinc -optimize nutrition 2. Bacteremia: Repeat BC NGTD -Antibiotics per sensitivity -Follow cultures 3. Atrial fibrillation: controlled/uncontrolled rate -Per cardiology -Rate control -Anticoagulation 4. UTI: -abx per sensitivity -frequent bladder emptying/cath care 5. Pneumonia with small bilateral pleural effusions -Pulmonary toilet -Antibiotics -Fluid management 6. Malnutrition: -Optimize nutrition 7. Dysphagia status post PEG -Tube feeds with aspiration precautions 8. Diastolic CHF with c preserved EF, history of MV endocarditis status post ant ibiotics -Per cardiology -Cardiac optimization 9. Liquid stools -stool studies if persistent Thank you. Patient seen and examined in collaboration with Dr. Serge Cherry. Subjective 24 Hr Interval Summary Pending consent for wound debridement. Appears comfortable. Nonverbal indicators of pain not present. No fevers, labored breathing, congested cough, vomiting, sz, rash. + liquid stool per rectal tube. Exam/Review of Systems Vital Signs Vitals Vital Signs Date Temp Pulse Resp B/P (MAP) Pulse Ox O2 O2 Flow FiO2 Time Delivery Rate 09/09/18 Nasal 2.0 08:25 Cannula 09/09/18 98.8 91 26 119/56 99 07:48 (77) Intake and Output 09/08/18 09/08/18 09/09/18 1515:00 23:00 07:00 IntakeIntake Total 1065 ml 1130 ml OutputOutput Total 2050 ml 1600 ml BalanceBalance -985 ml -470 ml Exam Free Text/Dictation Constitutional: alert, oriented (Forgetful), well developed, other Psych: nl mood/affect, anxiety (Minimal) Head: normocephalic, atraumatic Eyes: nl conjunctiva, EOMI, nl lids, nl sclera ENMT: nl external ears & nose, nl lips & teeth, mucosa pink and moist Neck: supple, non-tender; No jvd Respiratory: normal air movement; No congested cough, No labored breathing Cardiovascular: regular rate and rhythm, nl pulses Gastrointestinal: soft, non-tender, other (PEG), rectal tube (liquid stool) Genitourinary - Male: nl penis, nl scrotum Musculoskeletal: other (Muscle atrophy bilateral lower extremities); No nl extremities to inspection Extremities: normal pulses; No pitting pedal edema Neurological: nl speech; No nl strength (Generalized weakness) Skin: other (Sacral wound: Slough, minimal drainage, no odor, minimal periwound erythema); No rash or lesions Results Result Diagram: 09/09/18 0504 09/09/18 0504 AUSTEN WESTON NP Sep 09, 2018 10:25
--- NOTE | 2018-09-09 12:31 | PN ---
Date/Time of Note Date/Time of Note DATE: 09/09/18 TIME: 12:26 Assessment/Plan VTE Prophylaxis Risk score (from Ns)>0 risk: 5 SCD applied (from Ns): No SCD contraindicated: other Pharmacological prophylaxis: heparin Lines/Catheters [facility] Saline Lock Urinary Cath still in place: No (CONDOM CATH) Assessment/Plan Hospital Course S: Patient seen by surgery team yesterday and today. No acute events overnight. Tolerating tube feeds. O: VS- see below PE: General: Lying in bed, no acute distress presently Head: Normocephalic, atraumatic. Eyes: Pupils equally reactive, EOM intact ENT: Dry mucous membranes, trach in good position Neck: Supple, no lymphadenopathy Respiratory: Slightly distant breath sounds bilaterally Cardiovascular: No rubs or gallops Abdominal: Soft, non-tender, non-distended, no peritoneal sign MSK: No lower extremity bilaterally Neurologic: limited movement of all 4 extremities Assessment/Plan: 72-year-old male with atrial fibrillation, multifocal infarcts, dementia, chronic encephalopathy, psychosis/schizophrenia, MV endocarditis, dysphagia with G-tube who presents with: 1. Atrial fibrillation with RVR: rate controlled presently -Continue PO amiodarone and diltiazem -Follow-up further recommendations from cardiology team 2. Healthcare associated pneumonia: X-ray earlier this admission showed worsening consolidation -Follow-up ID recommendations, for now continue IV meropenem 3. Bacteremia -patient found with MDR gram-negative zeinab bacteremia possibly secondary to urinary tract infection versus sacral decub vs pulmonary. Also, sacral decub ulcer wound swab is polymicrobial. This may be contributing to transient bacteremia. -Per ID team, continue for now on meropenem, PO vanco. 4. Dysphagia with G-tube -For now continue tube feeds 5. History of recent MV endocarditis - s/p course of IV vancomycin, completed 08/27-monitor for now 6. Stage III sacral decub ulcer -For now continue current antibiotics -Follow-up recommendations from surgery team for debridement, they are planning on this but waiting for final consent from appropriate family member, s ocial worker is involved as we are having some issue finding the right family member to give the consent. Dispo: Surgical sacral decub ulcer debridement is pending consent, once this is performed we will plan for discharge back to SNF with ID-recommended antibiotics. Result Diagram: 09/09/18 0504 09/09/18 0504 Results 24hrs Laboratory Tests Test 09/09/18 05:04 White Blood Count 8.2 Red Blood Count 3.33 L Hemoglobin 9.5 L Hematocrit 30.8 L Mean Corpuscular Volume 92.5 Mean Corpuscular Hemoglobin 28.5 L Mean Corpuscular Hemoglobin Concent 30.8 L Red Cell Distribution Width 17.5 H Platelet Count 336 Mean Platelet Volume 10.2 Immature Granulocytes % 1.000 H Neutrophils % 71.4 Lymphocytes % 10.4 L Monocytes % 11.5 H Eosinophils % 5.1 Basophils % 0.6 Nucleated Red Blood Cells % 0.0 Immature Granulocytes # 0.080 H Neutrophils # 5.9 Lymphocytes # 0.9 Monocytes # 0.9 Eosinophils # 0.4 Basophils # 0.1 Nucleated Red Blood Cells # 0.0 Sodium Level 134 L Potassium Level 4.8 Chloride Level 101 Carbon Dioxide Level 25 Anion Gap 8 Blood Urea Nitrogen 22 H Creatinine 0.63 Est Glomerular Filtrat Rate mL/min > 60 Glucose Level 106 Calcium Level 9.1 Exam/Review of Systems Exam Vitals Vital Signs Date Temp Pulse Resp B/P (MAP) Pulse Ox O2 O2 Flow FiO2 Time Delivery Rate 09/09/18 3.0 11:36 09/09/18 98.0 92 26 114/55 100 Nasal 11:15 (74) Cannula Intake and Output 09/08/18 09/08/18 09/09/18 1515:00 23:00 07:00 IntakeIntake Total 1065 ml 1130 ml OutputOutput Total 2050 ml 1600 ml BalanceBalance -985 ml -470 ml Results Results 24hrs Laboratory Tests Test 09/09/18 05:04 White Blood Count 8.2 Red Blood Count 3.33 L Hemoglobin 9.5 L Hematocrit 30.8 L Mean Corpuscular Volume 92.5 Mean Corpuscular Hemoglobin 28.5 L Mean Corpuscular Hemoglobin Concent 30.8 L Red Cell Distribution Width 17.5 H Platelet Count 336 Mean Platelet Volume 10.2 Immature Granulocytes % 1.000 H Neutrophils % 71.4 Lymphocytes % 10.4 L Monocytes % 11.5 H Eosinophils % 5.1 Basophils % 0.6 Nucleated Red Blood Cells % 0.0 Immature Granulocytes # 0.080 H Neutrophils # 5.9 Lymphocytes # 0.9 Monocytes # 0.9 Eosinophils # 0.4 Basophils # 0.1 Nucleated Red Blood Cells # 0.0 Sodium Level 134 L Potassium Level 4.8 Chloride Level 101 Carbon Dioxide Level 25 Anion Gap 8 Blood Urea Nitrogen 22 H Creatinine 0.63 Est Glomerular Filtrat Rate mL/min > 60 Glucose Level 106 Calcium Level 9.1 Medications Medication Current Medications IV Flush (NS 3 ml) 3 ml PER PROTOCOL IV ; Start 08/28/18 at 00:00 Ondansetron HCl (Zofran Inj) 4 mg Q6H PRN IV NAUSEA/VOMITING; Start 08/28/18 at 00:00 Acetaminophen (Tylenol Tab) 650 mg Q6H PRN PO .PAIN 1-3 OR TEMP; Start 08/28/18 at 00:00 Amiodarone HCl (Cordarone) 200 mg BID PO Last administered on 09/09/18at 08:27; Admin Dose 200 MG; Start 08/28/18 at 00:00 Ipratropium [place] (Atrovent 0.02% (Neb)) 0.5 mg Q6H RESP THERAPY PRN INH SHORTNESS OF BREATH; Start 08/28/18 at 00:00 Lansoprazole (Prevacid) 30 mg DAILY@0600 PO Last administered on 09/09/18at 05:10; Admin Dose 30 MG; Start 08/28/18 at 06:00 Levalbuterol (Xopenex Hfa) 1 puff Q4H RESP THERAPY PRN INH WHEEZING AND SOB; Start 08/28/18 at 00:00 Miscellaneous Information (Pending [facility] Order For Wound Care) This patient dugan... PRN PRN XX WOUND CARE; Start 08/28/18 at 19:00 Multivitamins (Multivitamin) 30 ml DAILY GTB Last administered on 09/09/18at 08:26; Admin Dose 30 ML; Start 08/30/18 at 09:00 Ascorbic Acid (Vitamin C) 500 mg DAILY GTB Last administered on 09/09/18at 08:26; Admin Dose 500 MG; Start 08/30/18 at 09:00 Diltiazem HCl (Cardizem) 60 mg Q8 PO Last administered on 09/08/18at 21:12; Admin Dose 60 MG; Start 08/31/18 at 22:00 Vancomycin HCl (Vancomycin Oral Syringe) 125 mg Q6 PO Last administered on 09/09/18 12:16; Admin Dose 125 MG; Start 09/01/18 at 18:00 Collagenase (Santyl) 1 applic DAILY TOP Last administered on 09/09/18 08:27; Admin Dose 1 APPLIC; Start 09/03/18 at 10:15 Heparin Sodium (Porcine) (Heparin (5000 Units/1ml)) 5,000 unit BID SC Last administered on 09/09/18 09:16; Admin Dose 5,000 UNIT; Start 09/04/18 at 21:00 Meropenem/Sodium Chloride 50 ml @ 100 mls/hr Q8 IVPB Last administered on 09/09/18 05:10; Admin Dose 100 MLS/HR; Start 09/04/18 at 14:00 Sodium Hypochlorite (Dakins Diluted (40)) 1 applic DAILY TP Last administered on 09/09/18 08:27; Admin Dose 1 APPLIC; Start 09/05/18 at 14:30 Furosemide (Lasix) 20 mg DAILY NGT Last administered on 09/09/18 08:26; Admin Dose 20 MG; Start 09/06/18 at 09:00 SOTO SHERMAN Sep 09, 2018 12:31
[2018-09-09] MEDS: LACTOBACILLUS RHAMNOSUS CAP PO SCH ×2 (13:36→23:03)
--- NOTE | 2018-09-09 14:02 | CONS ---
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 Encephalopathy CVA, hemorrhagic History of nonsustained ventricular tachycardia Continue Cardizem and titrate as needed Antibiotics as per infectious disease Lasix as needed Consultation Date/Type/Reason Admit Date/Time Aug 29, 2018 at 07:31 Initial Consult Date Type of Consult Cardiology Requesting Provider: SOTO SHERMAN Date/Time of Note DATE: 09/09/18 TIME: 14:01 24 HR Interval Summary Free Text/Dictation Seen and examined Exam/Review of Systems Vital Signs Vitals Vital Signs Date Temp Pulse Resp B/P (MAP) Pulse Ox O2 O2 Flow FiO2 Time Delivery Rate 09/09/18 3.0 11:36 09/09/18 98.0 92 26 114/55 100 Nasal 11:15 (74) Cannula Intake and Output 09/08/18 09/08/18 09/09/18 1515:00 23:00 07:00 IntakeIntake Total 1065 ml 1130 ml OutputOutput Total 2050 ml 1600 ml BalanceBalance -985 ml -470 ml Exam Exam Sleeping, no apparent distress Head: normocephalic Respiratory: other (Coarse breath sounds bilaterally, no wheezing) Cardiovascular: irregular rhythm Gastrointestinal: soft, non-tender, bowel sounds Extremities: edema (No) Labs Result Diagram: 09/09/18 0504 09/09/18 0504 Results 24hrs Laboratory Tests Test 09/09/18 05:04 White Blood Count 8.2 Red Blood Count 3.33 L Hemoglobin 9.5 L Hematocrit 30.8 L Mean Corpuscular Volume 92.5 Mean Corpuscular Hemoglobin 28.5 L Mean Corpuscular Hemoglobin Concent 30.8 L Red Cell Distribution Width 17.5 H Platelet Count 336 Mean Platelet Volume 10.2 Immature Granulocytes % 1.000 H Neutrophils % 71.4 Lymphocytes % 10.4 L Monocytes % 11.5 H Eosinophils % 5.1 Basophils % 0.6 Nucleated Red Blood Cells % 0.0 Immature Granulocytes # 0.080 H Neutrophils # 5.9 Lymphocytes # 0.9 Monocytes # 0.9 Eosinophils # 0.4 Basophils # 0.1 Nucleated Red Blood Cells # 0.0 Sodium Level 134 L Potassium Level 4.8 Chloride Level 101 Carbon Dioxide Level 25 Anion Gap 8 Blood Urea Nitrogen 22 H Creatinine 0.63 Est Glomerular Filtrat Rate mL/min > 60 Glucose Level 106 Calcium Level 9.1 Medications Medications Current Medications IV Flush (NS 3 ml) 3 ml PER PROTOCOL IV ; Start 08/28/18 at 00:00 Ondansetron HCl (Zofran Inj) 4 mg Q6H PRN IV NAUSEA/VOMITING; Start 08/28/18 at 00:00 Acetaminophen (Tylenol Tab) 650 mg Q6H PRN PO .PAIN 1-3 OR TEMP; Start 08/28/18 at 00:00 Amiodarone HCl (Cordarone) 200 mg BID PO Last administered on 09/09/18 08:27; Admin Dose 200 MG; Start 08/28/18 at 00:00 Ipratropium [place] (Atrovent 0.02% (Neb)) 0.5 mg Q6H RESP THERAPY PRN INH SHORTNESS OF BREATH; Start 08/28/18 at 00:00 Lansoprazole (Prevacid) 30 mg DAILY@0600 PO Last administered on 09/09/18at 05:10; Admin Dose 30 MG; Start 08/28/18 at 06:00 Levalbuterol (Xopenex Hfa) 1 puff Q4H RESP THERAPY PRN INH WHEEZING AND SOB; Start 08/28/18 at 00:00 Miscellaneous Information (Pending Santyl Order For Wound Care) This patient dugan... PRN PRN XX WOUND CARE; Start 08/28/18 at 19:00 Multivitamins (Multivitamin) 30 ml DAILY GTB Last administered on 09/09/18 08:26; Admin Dose 30 ML; Start 08/30/18 at 09:00 Ascorbic Acid (Vitamin C) 500 mg DAILY GTB Last administered on 09/09/18 08:26; Admin Dose 500 MG; Start 08/30/18 at 09:00 Diltiazem HCl (Cardizem) 60 mg Q8 PO Last administered on 09/09/18 13:39; Admin Dose 60 MG; Start 08/31/18 at 22:00 Vancomycin HCl (Vancomycin Oral Syringe) 125 mg Q6 PO Last administered on 09/09/18 12:16; Admin Dose 125 MG; Start 09/01/18 at 18:00 Collagenase (Santyl) 1 applic DAILY TOP Last administered on 09/09/18 08:27; Admin Dose 1 APPLIC; Start 09/03/18 at 10:15 Heparin Sodium (Porcine) (Heparin (5000 Units/1ml)) 5,000 unit BID SC Last administered on 09/09/18 09:16; Admin Dose 5,000 UNIT; Start 09/04/18 at 21:00 Meropenem/Sodium Chloride 50 ml @ 100 mls/hr Q8 IVPB Last administered on 09/09/18 13:35; Admin Dose 100 MLS/HR; Start 09/04/18 at 14:00 Sodium Hypochlorite (Dakins Diluted (40)) 1 applic DAILY TP Last administered on 09/09/18 08:27; Admin Dose 1 APPLIC; Start 09/05/18 at 14:30 Furosemide (Lasix) 20 mg DAILY NGT Last administered on 09/09/18 08:26; Admin Dose 20 MG; Start 09/06/18 at 09:00 Lactobacillus Acidophilus/ Rhamnosus (Culturelle) 1 cap BID PO Last administer ed on 09/09/18at 13:36; Admin Dose 1 CAP; Start 09/09/18 at 12:30 Charan Cottrell DO Sep 09, 2018 14:02
--- NOTE | 2018-09-09 14:28 | CONS ---
Assessment/Plan Assessment/Plan Hospital Course (Demo Recall) No acute changes per report patient is awake and looks comfortable, no fevers overnight Blood culture on admission grew MDR A.b. Wound culture growing E. coli multidrug-resistant Acinetobacter Pseudomonas and coag negative staph species Indwelling's: PEG Antimicrobials: IV Bactrim Meropenem PO Vanco Physical examination: Fragile elderly man who is in no distress. Head atraumatic normocephalic neck is supple chest rise symmetrical breath sounds diminished bases. Heart: S1-S2. Abdomen soft bowel sounds present. Extremities without cyanosis. Skin: Patient has a large unstageable sacral wound Assessment: 1. MDR gram-negative zeinab bacteremia possibly secondary to urinary tract in fection versus sacral decub vs pulmonary 2. Unstageable sacral decubitus ulcer 3. Urinary tract infection per urinalysis 4. Diarrhea/hx C. difficile colitis 5. History of MRSA endocarditis, treated 6. History of CVA with chronic encephalopathy 7. Dysphagia status post PEG 8. Atrial fibrillation status post RVR Plan: Remains stable, repeat bld cx neg, continue abx, awaiting for surgical [place] l Consultation Date/Type/Reason Admit Date/Time Aug 29, 2018 at 07:31 Initial Consult Date Type of Consult id Requesting Provider: SOTO SHERMAN Date/Time of Note DATE: 09/09/18 TIME: 14:27 Exam/Review of Systems Exam Vitals Vital Signs Date Temp Pulse Resp B/P (MAP) Pulse Ox O2 O2 Flow FiO2 Time Delivery Rate 09/09/18 3.0 11:36 09/09/18 98.0 92 26 114/55 100 Nasal 11:15 (74) Cannula Intake and Output 09/08/18 09/08/18 09/09/18 1515:00 23:00 07:00 IntakeIntake Total 1065 ml 1130 ml OutputOutput Total 2050 ml 1600 ml BalanceBalance -985 ml -470 ml Results Result Diagram: 09/09/18 0504 09/09/18 0504 Results 24hrs Laboratory Tests Test 09/09/18 05:04 White Blood Count 8.2 Red Blood Count 3.33 L Hemoglobin 9.5 L Hematocrit 30.8 L Mean Corpuscular Volume 92.5 Mean Corpuscular Hemoglobin 28.5 L Mean Corpuscular Hemoglobin Concent 30.8 L Red Cell Distribution Width 17.5 H Platelet Count 336 Mean Platelet Volume 10.2 Immature Granulocytes % 1.000 H Neutrophils % 71.4 Lymphocytes % 10.4 L Monocytes % 11.5 H Eosinophils % 5.1 Basophils % 0.6 Nucleated Red Blood Cells % 0.0 Immature Granulocytes # 0.080 H Neutrophils # 5.9 Lymphocytes # 0.9 Monocytes # 0.9 Eosinophils # 0.4 Basophils # 0.1 Nucleated Red Blood Cells # 0.0 Sodium Level 134 L Potassium Level 4.8 Chloride Level 101 Carbon Dioxide Level 25 Anion Gap 8 Blood Urea Nitrogen 22 H Creatinine 0.63 Est Glomerular Filtrat Rate mL/min > 60 Glucose Level 106 Calcium Level 9.1 Medications Medication Current Medications IV Flush (NS 3 ml) 3 ml PER PROTOCOL IV ; Start 08/28/18 at 00:00 Ondansetron HCl (Zofran Inj) 4 mg Q6H PRN IV NAUSEA/VOMITING; Start 08/28/18 at 00:00 Acetaminophen (Tylenol Tab) 650 mg Q6H PRN PO .PAIN 1-3 OR TEMP; Start 08/28/18 at 00:00 Amiodarone HCl (Cordarone) 200 mg BID PO Last administered on 09/09/18at 08:27; Admin Dose 200 MG; Start 08/28/18 at 00:00 Ipratropium [place] (Atrovent 0.02% (Neb)) 0.5 mg Q6H RESP THERAPY PRN INH SH ORTNESS OF BREATH; Start 08/28/18 at 00:00 Lansoprazole (Prevacid) 30 mg DAILY@0600 PO Last administered on 09/09/18at 05:10; Admin Dose 30 MG; Start 08/28/18 at 06:00 Levalbuterol (Xopenex Hfa) 1 puff Q4H RESP THERAPY PRN INH WHEEZING AND SOB; Start 08/28/18 at 00:00 [facility] This patient dugan... PRN PRN XX WOUND CARE; Start 08/28/18 at 19:00 Multivitamins (Multivitamin) 30 ml DAILY GTB Last administered on 09/09/18at 08:26; Admin Dose 30 ML; Start 08/30/18 at 09:00 Ascorbic Acid (Vitamin C) 500 mg DAILY GTB Last administered on 09/09/18 08: 26; Admin Dose 500 MG; Start 08/30/18 at 09:00 Diltiazem HCl (Cardizem) 60 mg Q8 PO Last administered on 09/09/18 13:39; Admin Dose 60 MG; Start 08/31/18 at 22:00 Vancomycin HCl (Vancomycin Oral Syringe) 125 mg Q6 PO Last administered on 09/09/18 12:16; Admin Dose 125 MG; Start 09/01/18 at 18:00 Collagenase (Santyl) 1 applic DAILY TOP Last administered on 09/09/18 08:27; Admin Dose 1 APPLIC; Start 09/03/18 at 10:15 Heparin Sodium (Porcine) (Heparin (5000 Units/1ml)) 5,000 unit BID SC Last administered on 09/09/18 09:16; Admin Dose 5,000 UNIT; Start 09/04/18 at 21:00 Meropenem/Sodium Chloride 50 ml @ 100 mls/hr Q8 IVPB Last administered on 09/09/18 13:35; Admin Dose 100 MLS/HR; Start 09/04/18 at 14:00 Sodium Hypochlorite (Dakins Diluted (1/40)) 1 applic DAILY TP Last administered on 09/09/18 08:27; Admin Dose 1 APPLIC; Start 09/05/18 at 14:30 Furosemide (Lasix) 20 mg DAILY NGT Last administered on 09/09/18 08:26; Admin Dose 20 MG; Start 09/06/18 at 09:00 Lactobacillus Acidophilus/ Rhamnosus (Culturelle) 1 cap BID PO Last administered on 09/09/18 13:36; Admin Dose 1 CAP; Start 09/09/18 at 12:30 SANDER WILL NP Sep 09, 2018 14:28
[2018-09-09] MEDS: TRIMETHOPRIM/SULFAMETHOXAZOLE 15 ML in DEXTROSE 5% 500 ML IVPB SCH ×2 (16:39→23:02)
[2018-09-10] VITALS (8 sets, daily range): BP systolic 81–121; BP diastolic 51–68; PULSE 81–114; RESP 16–23
[2018-09-10] MEDS: BALSAM PERU/CASTOR OIL 60 GM TUBE TOP SCH ×3 (00:02→21:00)
[2018-09-10] MEDS: VANCOMYCIN HCL 250 MG/5ML POSYG PO SCH ×4 (00:02→17:49)
[2018-09-10] MEDS: MEROPENEM 1 GM/50ML(PMX) 50 ML IVPB SCH ×3 (05:36→22:50)
[2018-09-10] MEDS: LANSOPRAZOLE 30 MG CAP PO SCH (05:37)
[2018-09-10] MEDS: DILTIAZEM 30 MG TAB PO SCH ×3 (05:37→22:49)
[2018-09-10] MEDS: TRIMETHOPRIM/SULFAMETHOXAZOLE 15 ML in DEXTROSE 5% 500 ML IVPB SCH ×3 (06:30→22:49)
[2018-09-10] MEDS: MULTIVITAMINS 30 ML CUP GTB SCH (08:18)
[2018-09-10] MEDS: LACTOBACILLUS RHAMNOSUS CAP PO SCH ×2 (08:18→21:34)
[2018-09-10] MEDS: ASCORBIC ACID 500 MG TAB GTB SCH (08:18)
[2018-09-10] MEDS: AMIODARONE 200 MG TAB PO SCH ×2 (08:18→21:35)
[2018-09-10] MEDS: DAKINS 0.0125%(1/40) 473 ML SOLUTION TP SCH (08:19)
[2018-09-10] MEDS: FUROSEMIDE 20 MG TAB NGT SCH (08:19)
[2018-09-10] MEDS: COLLAGENASE 5 GM (UD JAR) TOP SCH (08:19)
[2018-09-10] MEDS: HEPARIN 5,000 UNIT/1 ML VIAL SC SCH ×2 (08:39→21:37)
--- NOTE | 2018-09-10 09:52 | PN ---
Date/Time of Note Date/Time of Note DATE: 09/10/18 TIME: 09:51 Assessment/Plan VTE Prophylaxis Risk score (from Ns)>0 risk: 7 SCD applied (from [facility] [place]): No SCD contraindicated: other Pharmacological prophylaxis: heparin Lines/Catheters IV C[facility] Type (from [facility] Saline Lock Urinary Cath still in place: No Assessment/Plan Hospital Course S: Patient had no acute events overnight. Still waiting to obtain consent for the debridement of the sacral ulcer, psych social worker working on this, but welfare case worker to be referred to bioethics on Wednesday. O: VS- see below PE: General: Lying in bed, no acute distress presently Head: Normocephalic, atraumatic. Eyes: Pupils equally reactive, EOM intact ENT: Dry mucous membranes, trach in good position Neck: Supple, no lymphadenopathy Respiratory: Slightly distant breath sounds bilaterally Cardiovascular: No rubs or gallops Abdominal: Soft, non-tender, non-distended, no peritoneal sign MSK: No lower extremity bilaterally Neurologic: limited movement of all 4 extremities Assessment/Plan: 72-year-old male with atrial fibrillation, multifocal infarcts, dementia, chronic encephalopathy, psychosis/schizophrenia, MV endocarditis, dysphagia with G-tube who presents with: 1. Atrial fibrillation with RVR: rate controlled presently -Continue PO amiodarone and diltiazem -Follow-up further recommendations from cardiology team 2. Healthcare associated pneumonia: X-ray earlier this admission showed worsening consolidation -Follow-up ID recommendations, for now continue current antibiotics IV B actrim and p.o. vancomycin 3. Bacteremia -patient found with MDR gram-negative zeinab bacteremia possibly secondary to urinary tract infection versus sacral decub vs pulmonary. Also, sacral decub ulcer wound swab is polymicrobial. This may be contributing to transient bacteremia. -Per ID team, continue for now on IV Bactrim, PO vanco. 4. Dysphagia with G-tube -For now continue tube feeds 5. History of recent MV endocarditis - s/p course of IV vancomycin, completed 08/27-monitor for now 6. Stage III sacral decub ulcer -For now continue current antibiotics -Follow-up recommendations from surgery team for debridement, they are planning on this but waiting for final consent from appropriate family member, psych social worker is involved as we are having some issue finding the right family member to give the consent. Dispo: Surgical sacral decub ulcer debridement is pending consent, again we may have to refer to bioethics for consents issues on Wednesday, once this is performed we will plan for discharge back to SNF with ID-recommended antibiotics. Result Diagram: 09/10/18 0459 09/10/18 0459 Results 24hrs Laboratory Tests Test 09/10/18 04:59 White Blood Count 8.5 Red Blood Count 3.27 L Hemoglobin 9.2 L Hematocrit 30.1 L Mean Corpuscular Volume 92.0 Mean Corpuscular Hemoglobin 28.1 L Mean Corpuscular Hemoglobin Concent 30.6 L Red Cell Distribution Width 17.3 H Platelet Count 322 Mean Platelet Volume 10.2 Immature Granulocytes % 1.100 H Neutrophils % 74.0 Lymphocytes % 10.5 L Monocytes % 9.8 Eosinophils % 4.1 Basophils % 0.5 Nucleated Red Blood Cells % 0.0 Immature Granulocytes # 0.090 H Neutrophils # 6.3 Lymphocytes # 0.9 Monocytes # 0.8 Eosinophils # 0.4 Basophils # 0.0 Nucleated Red Blood Cells # 0.0 Sodium Level 131 L Potassium Level 4.5 Chloride Level 97 Carbon Dioxide Level 25 Anion Gap 9 Blood Urea Nitrogen 23 H Creatinine 0.62 Est Glomerular Filtrat Rate mL/min > 60 Glucose Level 144 Calcium Level 9.0 Phosphorus Level 3.4 Magnesium Level 1.9 Exam/Review of Systems Exam Vitals Vital Signs Date Temp Pulse Resp B/P (MAP) Pulse Ox O2 O2 Flow FiO2 Time Delivery Rate 09/10/18 Nasal 2.0 08:39 Cannula 09/10/18 97.8 98 19 107/60 98 07:28 (76) 09/09/18 21 18:41 Intake and Output 09/09/18 09/09/18 09/10/18 1515:00 23:00 07:00 IntakeIntake Total 50 ml 515 ml 1580 ml OutputOutput Total 2400 ml 1450 ml BalanceBalance 50 ml -1885 ml 130 ml Results Results 24hrs Laboratory Tests Test 09/10/18 04:59 White Blood Count 8.5 Red Blood Count 3.27 L Hemoglobin 9.2 L Hematocrit 30.1 L Mean Corpuscular Volume 92.0 Mean Corpuscular Hemoglobin 28.1 L Mean Corpuscular Hemoglobin Concent 30.6 L Red Cell Distribution Width 17.3 H Platelet Count 322 Mean Platelet Volume 10.2 Immature Granulocytes % 1.100 H Neutrophils % 74.0 Lymphocytes % 10.5 L Monocytes % 9.8 Eosinophils % 4.1 Basophils % 0.5 Nucleated Red Blood Cells % 0.0 Immature Granulocytes # 0.090 H Neutrophils # 6.3 Lymphocytes # 0.9 Monocytes # 0.8 Eosinophils # 0.4 Basophils # 0.0 Nucleated Red Blood Cells # 0.0 Sodium Level 131 L Potassium Level 4.5 Chloride Level 97 Carbon Dioxide Level 25 Anion Gap 9 Blood Urea Nitrogen 23 H Creatinine 0.62 Est Glomerular Filtrat Rate mL/min > 60 Glucose Level 144 Calcium Level 9.0 Phosphorus Level 3.4 Magnesium Level 1.9 Medications Medication Current Medications IV Flush (NS 3 ml) 3 ml PER PROTOCOL IV ; Start 08/28/18 at 00:00 Ondansetron HCl (Zofran Inj) 4 mg Q6H PRN IV NAUSEA/VOMITING; Start 08/28/18 at 00:00 Acetaminophen (Tylenol Tab) 650 mg Q6H PRN PO .PAIN 1-3 OR TEMP; Start 08/28/18 at 00:00 Amiodarone HCl (Cordarone) 200 mg BID PO Last administered on 09/10/18at 08:18; Admin Dose 200 MG; Start 08/28/18 at 00:00 Ipratropium [place] (Atrovent 0.02% (Neb)) 0.5 mg Q6H RESP THERAPY PRN INH SHORTNESS OF BREATH; Start 08/28/18 at 00:00 Lansoprazole (Prevacid) 30 mg DAILY@0600 PO Last administered on 09/10/18at 05:37; Admin Dose 30 MG; Start 08/28/18 at 06:00 Levalbuterol (Xopenex Hfa) 1 puff Q4H RESP THERAPY PRN INH WHEEZING AND SOB; Start 08/28/18 at 00:00 Miscellaneous Information (Pending Santyl Order For Wound Care) This patient dugan... PRN PRN XX WOUND CARE; Start 08/28/18 at 19:00 Multivitamins (Multivitamin) 30 ml DAILY GTB Last administered on 09/10/18at 08:18; Admin Dose 30 ML; Start 08/30/18 at 09:00 Ascorbic Acid (Vitamin C) 500 mg DAILY GTB Last administered on 09/10/18at 08:18; Admin Dose 500 MG; Start 08/30/18 at 09:00 Diltiazem HCl (Cardizem) 60 mg Q8 PO Last administered on 09/09/18 23:03; Admin Dose 60 MG; Start 08/31/18 at 22:00 Vancomycin HCl (Vancomycin Oral Syringe) 125 mg Q6 PO Last administered on 09/10/18 05:37; Admin Dose 125 MG; Start 09/01/18 at 18:00 Collagenase (Santyl) 1 applic DAILY TOP Last administered on 09/10/18 08:19; Admin Dose 1 APPLIC; Start 09/03/18 at 10:15 Heparin Sodium (Porcine) (Heparin (5000 Units/1ml)) 5,000 unit BID SC Last administered on 09/10/18 08:39; Admin Dose 5,000 UNIT; Start 09/04/18 at 21:00 Meropenem/Sodium Chloride 50 ml @ 100 mls/hr Q8 IVPB Last administered on 09/10/18 05:36; Admin Dose 100 MLS/HR; Start 09/04/18 at 14:00 Sodium Hypochlorite (Dakins Diluted (1/40)) 1 applic DAILY TP Last administered on 09/10/18 08:19; Admin Dose 1 APPLIC; Start 09/05/18 at 14:30 Furosemide (Lasix) 20 mg DAILY NGT Last administered on 09/10/18 08:19; Admin Dose 20 MG; Start 09/06/18 at 09:00 Lactobacillus Acidophilus/ Rhamnosus (Culturelle) 1 cap BID PO Last administered on 09/10/18 08:18; Admin Dose 1 CAP; Start 09/09/18 at 12:30 Trimethoprim/ Sulfamethoxazole 15 ml/Dextrose 515 ml @ 343.333 mls/hr Q8 IVPB Last administered on 09/10/18 06:30; Admin Dose 343.333 MLS/HR; Start 09/09/18 at 17:00 SOTO SHERMAN Sep 10, 2018 09:52
--- NOTE | 2018-09-10 13:24 | PN ---
Date/Time of Note Date/Time of Note DATE: 09/10/18 TIME: 13:24 Assessment/Plan Lines/Catheters IV Catheter Type (from [facility]): Saline Lock [place] in Place (from [facility]): No Assessment/Plan Chief Complaint/Hosp Course 1. Sacral wound:+ Wound cultures -debridement (still pending consent- bioethics pending) -continue local care -frequent turning and off-loading -low air loss mattress -vitamin c -short term zinc -optimize nutrition 2. Bacteremia: Repeat BC NGTD -Antibiotics per sensitivity -Follow cultures 3. Atrial fibrillation: controlled/uncontrolled rate -Per cardiology -Rate control -Anticoagulation 4. UTI: -abx per sensitivity -frequent bladder emptying/cath care 5. Pneumonia with small bilateral pleural effusions -Pulmonary toilet -Antibiotics -Fluid management 6. Malnutrition: -Optimize nutrition 7. Dysphagia status post PEG -Tube feeds with aspiration precautions 8. Diastolic CHF with c preserved EF, history of MV endocarditis status post ant ibiotics -Per cardiology -Cardiac optimization 9. Liquid stools -stool studies if persistent Thank you. Patient seen and examined in collaboration with Dr. Serge Cherry. Subjective 24 Hr Interval Summary Pending bioethics meeting. Appears comfortAble. Nonverbal indicators of pain not present.No fevers, labored breathing, congested cough, vomiting, sz rash. Exam/Review of Systems Vital Signs Vitals Vital Signs Date Temp Pulse Resp B/P (MAP) Pulse Ox O2 O2 Flow FiO2 Time Delivery Rate 09/10/18 98.9 114 18 119/64 100 19:28 (82) 09/10/18 Nasal 2.0 08:39 Cannula 09/09/18 21 18:41 Intake and Output 09/09/18 09/09/18 09/10/18 1515:00 23:00 07:00 IntakeIntake Total 50 ml 515 ml 1580 ml OutputOutput Total 2400 ml 1450 ml BalanceBalance 50 ml -1885 ml 130 ml Exam Free Text/Dictation Free Text/Dictation Constitutional: alert, oriented (Forgetful), well developed, other Psych: nl mood/affect, anxiety (Minimal) Head: normocephalic, atraumatic Eyes: nl conjunctiva, EOMI, nl lids, nl sclera ENMT: nl external ears & nose, nl lips & teeth, mucosa pink and moist Neck: supple, non-tender; No jvd Respiratory: normal air movement; No congested cough, No labored breathing Cardiovascular: regular rate and rhythm, nl pulses Gastrointestinal: soft, non-tender, other (PEG), rectal tube (liquid stool) Genitourinary - Male: nl penis, nl scrotum Musculoskeletal: other (Muscle atrophy bilateral lower extremities); No nl extremities to inspection Extremities: normal pulses; No pitting pedal edema Neurological: nl speech; No nl strength (Generalized weakness) Skin: other (Sacral wound: Slough, minimal drainage, no odor, minimal periwound erythema); No rash or lesions Results Result Diagram: 09/10/18 0459 09/10/18 0459 AUSTEN WESTON NP Sep 10, 2018 13:24
--- NOTE | 2018-09-10 13:55 | CONS ---
Assessment/Plan Assessment/Plan Hospital Course (Demo Recall) ID PROGRESS NOTE CURRENT ABX: DAY # =>: IV Bactrim Meropenem PO Vanco 24H INTERVAL SUMMARY * Cachectic M currently napping, VSS, NAD, without dyspnea on room air * Indwelling's: PEG, FC, liquid stools in fecal containment bag DIAGNOSTIC IMAGING * 09/10/18 CXR: MICRO * Blood culture on admission grew MDR A.b. Wound culture growing E. coli multidrug-resistant Acinetobacter Pseudomonas and coag negative staph species PHYSICAL EXAMINATION: GENERAL: VSS, NAD - cachectic HEENT: AT, NC, NECK: Supple, CHEST: Rise symmetrical HEART: Pulse RRR ABDOMEN: Benign EXTREMITIES: Warm, dry SKIN: No rash, no diaphoresis large unstageable sacral wound ID ASSESSMENT 72 yo M admit with: 1. MDR gram-negative zeinab bacteremia possibly secondary to urinary tract infection versus sacral decub vs pulmonary 2. Unstageable sacral decubitus ulcer 3. Urinary tract infection per urinalysis 4. Diarrhea/hx C. difficile colitis 5. History of MRSA endocarditis, treated 6. History of CVA with chronic encephalopathy 7. Dysphagia status post PEG 8. Atrial fibrillation status post RVR (-)MRSA Nares ABX ALLERGIES: KNDA INVASIVES: PIV CURRENT ABX: DAY # => IV Bactrim Meropenem PO Vanco ID RECOMMENDATIONS/PLAN: 1. Sacral wound debridement pending * Per surgery: -debridement (still pending consent- will need clarification on responsible libertarian, daughter and brother are not comfortable making decisions) . Consultation Date/Type/Reason Admit Date/Time Aug 29, 2018 at 07:31 Initial Consult Date 09/07/18 Requesting Provider: SOTO SHERMAN Date/Time of Note DATE: 09/10/18 TIME: 13:54 Exam/Review of Systems Exam Vitals Vital Signs Date Temp Pulse Resp B/P (MAP) Pulse Ox O2 O2 Flow FiO2 Time Delivery Rate 09/10/18 98.7 81 18 101/54 96 11:17 (70) 09/10/18 Nasal 2.0 08:39 Cannula 09/09/18 21 18:41 Intake and Output 09/09/18 09/09/18 09/10/18 1515:00 23:00 07:00 IntakeIntake Total 50 ml 515 ml 1580 ml OutputOutput Total 2400 ml 1450 ml BalanceBalance 50 ml -1885 ml 130 ml Results Result Diagram: 09/10/18 0459 09/10/18 0459 Results 24hrs Laboratory Tests Test 09/10/18 04:59 White Blood Count 8.5 Red Blood Count 3.27 L Hemoglobin 9.2 L Hematocrit 30.1 L Mean Corpuscular Volume 92.0 Mean Corpuscular Hemoglobin 28.1 L Mean Corpuscular Hemoglobin Concent 30.6 L Red Cell Distribution Width 17.3 H Platelet Count 322 Mean Platelet Volume 10.2 Immature Granulocytes % 1.100 H Neutrophils % 74.0 Lymphocytes % 10.5 L Monocytes % 9.8 Eosinophils % 4.1 Basophils % 0.5 Nucleated Red Blood Cells % 0.0 Immature Granulocytes # 0.090 H Neutrophils # 6.3 Lymphocytes # 0.9 Monocytes # 0.8 Eosinophils # 0.4 Basophils # 0.0 Nucleated Red Blood Cells # 0.0 Sodium Level 131 L Potassium Level 4.5 Chloride Level 97 Carbon Dioxide Level 25 Anion Gap 9 Blood Urea Nitrogen 23 H Creatinine 0.62 Est Glomerular Filtrat Rate mL/min > 60 Glucose Level 144 Calcium Level 9.0 Phosphorus Level 3.4 Magnesium Level 1.9 Medications Medication Current Medications IV Flush (NS 3 ml) 3 ml PER PROTOCOL IV ; Start 08/28/18 at 00:00 Ondansetron HCl (Zofran Inj) 4 mg Q6H PRN IV NAUSEA/VOMITING; Start 08/28/18 at 00:00 Acetaminophen (Tylenol Tab) 650 mg Q6H PRN PO .PAIN 1-3 OR TEMP; Start 08/28/18 at 00:00 Amiodarone HCl (Cordarone) 200 mg BID PO Last administered on 09/10/18at 08:18; Admin Dose 200 MG; Start 08/28/18 at 00:00 Ipratropium [place] (Atrovent 0.02% (Neb)) 0.5 mg Q6H RESP THERAPY PRN INH SHORTNESS OF BREATH; Start 08/28/18 at 00:00 Lansoprazole (Prevacid) 30 mg DAILY@0600 PO Last administered on 09/10/18at 05:37; Admin Dose 30 MG; Start 08/28/18 at 06:00 Levalbuterol (Xopenex Hfa) 1 puff Q4H RESP THERAPY PRN INH WHEEZING AND SOB; Start 08/28/18 at 00:00 Miscellaneous Information (Pending Santyl Order For Wound Care) This patient dugan... PRN PRN XX WOUND CARE; Start 08/28/18 at 19:00 Multivitamins (Multivitamin) 30 ml DAILY GTB Last administered on 09/10/18at 0 8:18; Admin Dose 30 ML; Start 08/30/18 at 09:00 Ascorbic Acid (Vitamin C) 500 mg DAILY GTB Last administered on 09/10/18at 08:18; Admin Dose 500 MG; Start 08/30/18 at 09:00 Diltiazem HCl (Cardizem) 60 mg Q8 PO Last administered on 09/09/18 23:03; Admin Dose 60 MG; Start 08/31/18 at 22:00 Vancomycin HCl (Vancomycin Oral Syringe) 125 mg Q6 PO Last administered on 09/10/18 11:49; Admin Dose 125 MG; Start 09/01/18 at 18:00 Collagenase (Santyl) 1 applic DAILY TOP Last administered on 09/10/18at 08:19; Admin Dose 1 APPLIC; Start 09/03/18 at 10:15 Heparin Sodium (Porcine) (Heparin (5000 Units/1ml)) 5,000 unit BID SC Last administered on 09/10/18at 08:39; Admin Dose 5,000 UNIT; Start 09/04/18 at 21:00 Meropenem/Sodium Chloride 50 ml @ 100 mls/hr Q8 IVPB Last administered on 09/10/18at 13:17; Admin Dose 100 MLS/HR; Start 09/04/18 at 14:00 Sodium Hypochlorite (Dakins Diluted (/40)) 1 applic DAILY TP Last administered on 09/10/18 08:19; Admin Dose 1 APPLIC; Start 09/05/18 at 14:30 Furosemide (Lasix) 20 mg DAILY NGT Last administered on 09/10/18 08:19; Admin Dose 20 MG; Start 09/06/18 at 09:00 Lactobacillus Acidophilus/ Rhamnosus (Culturelle) 1 cap BID PO Last administered on 09/10/18 08:18; Admin Dose 1 CAP; Start 09/09/18 at 12:30 Trimethoprim/ Sulfamethoxazole 15 ml/Dextrose 515 ml @ 343.333 mls/hr Q8 IVPB Last administered on 09/10/18at 06:30; Admin Dose 343.333 MLS/HR; Start 09/09/18 at 17:00 NEYDA DUENAS NP Sep 10, 2018 13:55
[2018-09-11] VITALS (7 sets, daily range): BP systolic 88–110; BP diastolic 50–58; PULSE 70–114; RESP 15–23
[2018-09-11] MEDS: VANCOMYCIN HCL 250 MG/5ML POSYG PO SCH ×4 (01:15→17:43)
[2018-09-11] MEDS: DILTIAZEM 30 MG TAB PO SCH ×3 (05:49→22:07)
[2018-09-11] MEDS: LANSOPRAZOLE 30 MG CAP PO SCH (05:49)
[2018-09-11] MEDS: MEROPENEM 1 GM/50ML(PMX) 50 ML IVPB SCH ×3 (05:50→21:54)
[2018-09-11] MEDS: TRIMETHOPRIM/SULFAMETHOXAZOLE 15 ML in DEXTROSE 5% 500 ML IVPB SCH ×3 (08:36→22:00)
[2018-09-11] MEDS: MULTIVITAMINS 30 ML CUP GTB SCH (08:36)
[2018-09-11] MEDS: LACTOBACILLUS RHAMNOSUS CAP PO SCH ×2 (08:36→21:54)
[2018-09-11] MEDS: ASCORBIC ACID 500 MG TAB GTB SCH (08:37)
[2018-09-11] MEDS: BALSAM PERU/CASTOR OIL 60 GM TUBE TOP SCH ×2 (08:37→21:57)
[2018-09-11] MEDS: DAKINS 0.0125%(1/40) 473 ML SOLUTION TP SCH (08:37)
[2018-09-11] MEDS: COLLAGENASE 5 GM (UD JAR) TOP SCH (08:37)
[2018-09-11] MEDS: HEPARIN 5,000 UNIT/1 ML VIAL SC SCH ×2 (08:51→21:59)
[2018-09-11] MEDS: AMIODARONE 200 MG TAB PO SCH ×2 (08:52→21:55)
[2018-09-11] MEDS: FUROSEMIDE 20 MG TAB NGT SCH (08:52)
--- NOTE | 2018-09-11 10:14 | PN ---
Date/Time of Note Date/Time of Note DATE: 09/11/18 TIME: 10:11 Assessment/Plan VTE Prophylaxis Risk score (from Ns)>0 risk: 6 SCD applied (from [facility] [place]): No SCD contraindicated: other Pharmacological prophylaxis: heparin Lines/Catheters IV Catheter Type (from [facility]): Saline Lock Urinary Cath still in place: No Assessment/Plan Hospital Course S: Patient had 2 of his blood pressure medicines held this morning secondary to low blood pressure. Otherwise no acute events overnight, still waiting for consent to perform the sacral debridement, being referred to bioethics now. O: VS- see below PE: General: Lying in bed, no acute distress presently Head: Normocephalic, atraumatic. Eyes: Pupils equally reactive, EOM intact ENT: Dry mucous membranes, trach in good position Neck: Supple, no lymphadenopathy Respiratory: Slightly distant breath sounds bilaterally Cardiovascular: No rubs or gallops Abdominal: Soft, non-tender, non-distended, no peritoneal sign MSK: No lower extremity bilaterally Neurologic: limited movement of all 4 extremities Assessment/Plan: 72-year-old male with atrial fibrillation, multifocal infarcts, dementia, chronic encephalopathy, psychosis/schizophrenia, MV endocarditis, dysphagia with G-tube who presents with: 1. Atrial fibrillation with RVR: rate controlled presently -Continue PO amiodarone and diltiazem -Follow-up further recommendations from cardiology team 2. Healthcare associated pneumonia: X-ray earlier this admission showed worsening consolidation -Follow-up ID recommendations, for now continue current antibiotics IV Bactrim and p.o. vancomycin 3. Bacteremia -patient found with MDR gram-negative zeinab bacteremia possibly secondary to urinary tract infection versus sacral decub vs pulmonary. Also, sacral decub ulcer wound swab is polymicrobial. This may be contributing to transient bacteremia. -Per ID team, continue for now on IV Bactrim, PO vanco. 4. Dysphagia with G-tube -For now continue tube feeds 5. History of recent MV endocarditis - s/p course of IV vancomycin, completed 08/27-monitor for now 6. Stage III sacral decub ulcer -For now continue current antibiotics -Follow-up recommendations from surgery team for debridement, they are planning on this but waiting for final consent from appropriate family member, social sciences chair is involved as we are having some issue finding the right family member to give the consent-as stated above case now being referred to bioethics to help make this determination. Dispo: Surgical sacral decub ulcer debridement is pending consent, again we may have to refer to bioethics for consents issues on Wednesday, once this is sorted out we will plan for discharge back to SNF with ID-recommended antibiotics. Result Diagram: 09/11/18 0504 09/11/18 0504 Results 24hrs Laboratory Tests Test 09/11/18 05:04 White Blood Count 8.1 Red Blood Count 3.39 L Hemoglobin 9.6 L Hematocrit 31.2 L Mean Corpuscular Volume 92.0 Mean Corpuscular Hemoglobin 28.3 L Mean Corpuscular Hemoglobin Concent 30.8 L Red Cell Distribution Width 17.2 H Platelet Count 342 Mean Platelet Volume 10.1 Immature Granulocytes % 1.100 H Neutrophils % 74.0 Lymphocytes % 10.1 L Monocytes % 10.9 Eosinophils % 3.4 Basophils % 0.5 Nucleated Red Blood Cells % 0.0 Immature Granulocytes # 0.090 H Neutrophils # 6.0 Lymphocytes # 0.8 Monocytes # 0.9 Eosinophils # 0.3 Basophils # 0.0 Nucleated Red Blood Cells # 0.0 Sodium Level 134 L Potassium Level 5.0 Chloride Level 99 Carbon Dioxide Level 25 Anion Gap 10 Blood Urea Nitrogen 21 H Creatinine 0.70 Est Glomerular Filtrat Rate mL/min > 60 Glucose Level 103 # Calcium Level 9.4 Phosphorus Level 3.8 Magnesium Level 2.2 Exam/Review of Systems Exam Vitals Vital Signs Date Temp Pulse Resp B/P (MAP) Pulse Ox O2 O2 Flow FiO2 Time Delivery Rate 09/11/18 Nasal 2.0 08:00 Cannula 09/11/18 97.9 86 17 102/57 96 07:36 (72) 09/09/18 21 18:41 Intake and Output 09/10/18 09/10/18 09/11/18 1515:00 23:00 07:00 IntakeIntake Total 565 ml 1580 ml 1730 ml OutputOutput Total 1000 ml 1000 ml 1200 ml BalanceBalance -435 ml 580 ml 530 ml Results Results 24hrs Laboratory Tests Test 09/11/18 05:04 White Blood Count 8.1 Red Blood Count 3.39 L Hemoglobin 9.6 L Hematocrit 31.2 L Mean Corpuscular Volume 92.0 Mean Corpuscular Hemoglobin 28.3 L Mean Corpuscular Hemoglobin Concent 30.8 L Red Cell Distribution Width 17.2 H Platelet Count 342 Mean Platelet Volume 10.1 Immature Granulocytes % 1.100 H Neutrophils % 74.0 Lymphocytes % 10.1 L Monocytes % 10.9 Eosinophils % 3.4 Basophils % 0.5 Nucleated Red Blood Cells % 0.0 Immature Granulocytes # 0.090 H Neutrophils # 6.0 Lymphocytes # 0.8 Monocytes # 0.9 Eosinophils # 0.3 Basophils # 0.0 Nucleated Red Blood Cells # 0.0 Sodium Level 134 L Potassium Level 5.0 Chloride Level 99 Carbon Dioxide Level 25 Anion Gap 10 Blood Urea Nitrogen 21 H Creatinine 0.70 Est Glomerular Filtrat Rate mL/min > 60 Glucose Level 103 # Calcium Level 9.4 Phosphorus Level 3.8 Magnesium Level 2.2 Medications Medication Current Medications IV Flush (NS 3 ml) 3 ml PER PROTOCOL IV ; Start 08/28/18 at 00:00 Ondansetron HCl (Zofran Inj) 4 mg Q6H PRN IV NAUSEA/VOMITING; Start 08/28/18 at 00:00 Acetaminophen (Tylenol Tab) 650 mg Q6H PRN PO .PAIN 1-3 OR TEMP; Start 08/28/18 at 00:00 Amiodarone HCl (Cordarone) 200 mg BID PO Last administered on 09/10/18at 21:35; Admin Dose 200 MG; Start 08/28/18 at 00:00 Ipratropium [place] (Atrovent 0.02% (Neb)) 0.5 mg Q6H RESP THERAPY PRN INH SHORTNESS OF BREATH; Start 08/28/18 at 00:00 Lansoprazole (Prevacid) 30 mg DAILY@0600 PO Last administered on 09/11/18at 05:49; Admin Dose 30 MG; Start 08/28/18 at 06:00 Levalbuterol (Xopenex Hfa) 1 puff Q4H RESP THERAPY PRN INH WHEEZING AND SOB; Start 08/28/18 at 00:00 Miscellaneous Information (Pending Santyl Order For Wound Care) This patient dugan... PRN PRN XX WOUND CARE; Start 08/28/18 at 19:00 Multivitamins (Multivitamin) 30 ml DAILY GTB Last administered on 09/11/18at 08:36; Admin Dose 30 ML; Start 08/30/18 at 09:00 Ascorbic Acid (Vitamin C) 500 mg DAILY GTB Last administered on 09/11/18 08:37; Admin Dose 500 MG; Start 08/30/18 at 09:00 Diltiazem HCl (Cardizem) 60 mg Q8 PO Last administered on 09/10/18 22:49; Admin Dose 60 MG; Start 08/31/18 at 22:00 Vancomycin HCl (Vancomycin Oral Syringe) 125 mg Q6 PO Last administered on 09/11/18 05:50; Admin Dose 125 MG; Start 09/01/18 at 18:00 Collagenase (Santyl) 1 applic DAILY TOP Last administered on 09/11/18 08:37; Admin Dose 1 APPLIC; Start 09/03/18 at 10:15 Heparin Sodium (Porcine) (Heparin (5000 Units/1ml)) 5,000 unit BID SC Last administered on 09/11/18 08:51; Admin Dose 5,000 UNIT; Start 09/04/18 at 21:00 Meropenem/Sodium Chloride 50 ml @ 100 mls/hr Q8 IVPB Last administered on 09/11/18 05:50; Admin Dose 100 MLS/HR; Start 09/04/18 at 14:00 Sodium Hypochlorite (Dakins Diluted (40)) 1 applic DAILY TP Last administered on 09/11/18 08:37; Admin Dose 1 APPLIC; Start 09/05/18 at 14:30 Furosemide (Lasix) 20 mg DAILY NGT Last administered on 09/10/18 08:19; Admin Dose 20 MG; Start 09/06/18 at 09:00 Lactobacillus Acidophilus/ Rhamnosus (Culturelle) 1 cap BID PO Last administered on 09/11/18 08:36; Admin Dose 1 CAP; Start 09/09/18 at 12:30 Trimethoprim/ Sulfamethoxazole 15 ml/Dextrose 515 ml @ 343.333 mls/hr Q8 IVPB Last administered on 09/11/18 08:36; Admin Dose 343.333 MLS/HR; Start 09/09/18 at 17:00 SOTO SHERMAN Sep 11, 2018 10:14
--- NOTE | 2018-09-11 12:00 | PN ---
Date/Time of Note Date/Time of Note DATE: 09/11/18 TIME: 11:57 Assessment/Plan Lines/Catheters IV Catheter Type (from [facility]): Saline Lock Jimenez in Place (from [facility]): No Assessment/Plan Chief Complaint/Hosp Course 1. Sacral wound:+ Wound cultures -debridement (still pending consent- bioethics pending tomorrow) -continue local care -frequent turning and off-loading -low air loss mattress -vitamin c -short term zinc -optimize nutrition 2. Bacteremia: Repeat BC NGTD -Antibiotics per sensitivity -Follow cultures 3. Atrial fibrillation: controlled/uncontrolled rate -Rate control and anticoagulation per cards 4. UTI: -abx per sensitivity -frequent bladder emptying/cath care 5. Pneumonia with small bilateral pleural effusions -Pulmonary toilet -Antibiotics -Fluid management 6. Malnutrition: -Optimize nutrition 7. Dysphagia status post PEG -Tube feeds with aspiration precautions 8. Diastolic CHF with c preserved EF, history of MV endocarditis status post antibiotics -Per cardiology -Cardiac optimization 9. Liquid stools -stool studies if persistent Thank you. Patient seen and examined in collaboration with Dr. Serge Cherry. Subjective 24 Hr Interval Summary No acute events. No fevers, chills, sob, congested cough, cp, palpitations, dugan, dizziness, n/v/d/dysuria, excessive wound drainage/odor. Exam/Review of Systems Vital Signs Vitals Vital Signs Date Temp Pulse Resp B/P (MAP) Pulse Ox O2 O2 Flow FiO2 Time Delivery Rate 09/11/18 97.7 96 15 106/58 100 11:19 (74) 09/11/18 Nasal 2.0 08:00 Cannula 09/09/18 21 18:41 Intake and Output 09/10/18 09/10/18 09/11/18 1515:00 23:00 07:00 IntakeIntake Total 565 ml 1580 ml 1730 ml OutputOutput Total 1000 ml 1000 ml 1200 ml BalanceBalance -435 ml 580 ml 530 ml Exam Free Text/Dictation Constitutional: alert, oriented (Forgetful), well developed, other Psych: nl mood/affect, anxiety (Minimal) Head: normocephalic, atraumatic Eyes: nl conjunctiva, EOMI, nl lids, nl sclera ENMT: nl external ears & nose, nl lips & teeth, mucosa pink and moist Neck: supple, non-tender; No jvd Respiratory: normal air movement; No congested cough, No labored breathing Cardiovascular: regular rate and rhythm, nl pulses Gastrointestinal: soft, non-tender, other (PEG), rectal tube (liquid stool) Genitourinary - Male: nl penis, nl scrotum Musculoskeletal: other (Muscle atrophy bilateral lower extremities); No nl extremities to inspection Extremities: normal pulses; No pitting pedal edema Neurological: nl speech; No nl strength (Generalized weakness) Skin: other (Sacral wound: Slough, minimal drainage, no odor, minimal periwound erythema); No rash or lesions Results Result Diagram: 09/11/18 0504 09/11/18 0504 AUSTEN WESTON NP Sep 11, 2018 12:00
--- NOTE | 2018-09-11 14:06 | CONS ---
Assessment/Plan Assessment/Plan Hospital Course (Demo Recall) ID PROGRESS NOTE CURRENT ABX: DAY # =>: IV Bactrim Meropenem PO Vanco 24H INTERVAL SUMMARY * CLINICALLY STATUS QUO == NO NEW ISSUES == Cachectic M currently napping, VSS, NAD, without dyspnea on room air * CHART REVIEWED: -debridement (still pending consent- bioethics pending tomorrow) * Indwelling's: PEG, FC, liquid stools in fecal containment bag DIAGNOSTIC IMAGING * 09/10/18 CXR: MICRO * Blood culture on admission grew MDR A.b. Wound culture growing E. coli multidrug-resistant Acinetobacter Pseudomonas and coag negative staph species PHYSICAL EXAMINATION: GENERAL: VSS, NAD - cachectic HEENT: AT, NC, NECK: Supple, CHEST: Rise symmetrical HEART: Pulse RRR ABDOMEN: Benign EXTREMITIES: Warm, dry SKIN: No rash, no diaphoresis large unstageable sacral wound ID ASSESSMENT 72 yo M admit with: 1. MDR gram-negative zeinab bacteremia possibly secondary to urinary tract infection versus sacral decub vs pulmonary 2. Unstageable sacral decubitus ulcer 3. Urinary tract infection per urinalysis 4. Diarrhea/hx C. difficile colitis 5. History of MRSA endocarditis, treated 6. History of CVA with chronic encephalopathy 7. Dysphagia status post PEG 8. Atrial fibrillation status post RVR (-)MRSA Nares ABX ALLERGIES: KNDA INVASIVES: PIV CURRENT ABX: DAY # => IV Bactrim Meropenem PO Vanco ID RECOMMENDATIONS/PLAN: 1. Sacral wound debridement pending -debridement (still pending consent- bioeth ics pending tomorrow) * Per surgery: -debridement (still pending consent- will need clarification on responsible green party, daughter and brother are not comfortable making decisions) . Consultation Date/Type/Reason Admit Date/Time Aug 29, 2018 at 07:31 Initial Consult Date 09/07/18 Requesting Provider: SOTO SHERMAN Date/Time of Note DATE: 09/11/18 TIME: 14:04 Exam/Review of Systems Exam Vitals Vital Signs Date Temp Pulse Resp B/P (MAP) Pulse Ox O2 O2 Flow FiO2 Time Delivery Rate 09/11/18 97.7 96 15 106/58 100 11:19 (74) 09/11/18 Nasal 2.0 08:00 Cannula 09/09/18 21 18:41 Intake and Output 09/10/18 09/10/18 09/11/18 1515:00 23:00 07:00 IntakeIntake Total 565 ml 1580 ml 1730 ml OutputOutput Total 1000 ml 1000 ml 1200 ml BalanceBalance -435 ml 580 ml 530 ml Results Result Diagram: 09/11/18 0504 09/11/18 0504 Results 24hrs Laboratory Tests Test 09/11/18 05:04 White Blood Count 8.1 Red Blood Count 3.39 L Hemoglobin 9.6 L Hematocrit 31.2 L Mean Corpuscular Volume 92.0 Mean Corpuscular Hemoglobin 28.3 L Mean Corpuscular Hemoglobin Concent 30.8 L Red Cell Distribution Width 17.2 H Platelet Count 342 Mean Platelet Volume 10.1 Immature Granulocytes % 1.100 H Neutrophils % 74.0 Lymphocytes % 10.1 L Monocytes % 10.9 Eosinophils % 3.4 Basophils % 0.5 Nucleated Red Blood Cells % 0.0 Immature Granulocytes # 0.090 H Neutrophils # 6.0 Lymphocytes # 0.8 Monocytes # 0.9 Eosinophils # 0.3 Basophils # 0.0 Nucleated Red Blood Cells # 0.0 Sodium Level 134 L Potassium Level 5.0 Chloride Level 99 Carbon Dioxide Level 25 Anion Gap 10 Blood Urea Nitrogen 21 H Creatinine 0.70 Est Glomerular Filtrat Rate mL/min > 60 Glucose Level 103 # Calcium Level 9.4 Phosphorus Level 3.8 Magnesium Level 2.2 Medications Medication Current Medications IV Flush (NS 3 ml) 3 ml PER PROTOCOL IV ; Start 08/28/18 at 00:00 Ondansetron HCl (Zofran Inj) 4 mg Q6H PRN IV NAUSEA/VOMITING; Start 08/28/18 at 00:00 Acetaminophen (Tylenol Tab) 650 mg Q6H PRN PO .PAIN 1-3 OR TEMP; Start 08/28/18 at 00:00 Amiodarone HCl (Cordarone) 200 mg BID PO Last administered on 09/10/18at 21:35; Admin Dose 200 MG; Start 08/28/18 at 00:00 Ipratropium [place] (Atrovent 0.02% (Neb)) 0.5 mg Q6H RESP THERAPY PRN INH SHORTNESS OF BREATH; Start 08/28/18 at 00:00 Lansoprazole (Prevacid) 30 mg DAILY@0600 PO Last administered on 09/11/18 05:49; Admin Dose 30 MG; Start 08/28/18 at 06:00 Levalbuterol (Xopenex Hfa) 1 puff Q4H RESP THERAPY PRN INH WHEEZING AND SOB; Start 08/28/18 at 00:00 Miscellaneous Information (Pending Santyl Order For Wound Care) This patient dugan... PRN PRN XX WOUND CARE; Start 08/28/18 at 19:00 Multivitamins (Multivitamin) 30 ml DAILY GTB Last administered on 09/11/18 08:36; Admin Dose 30 ML; Start 08/30/18 at 09:00 Ascorbic Acid (Vitamin C) 500 mg DAILY GTB Last administered on 09/11/18 08:37; Admin Dose 500 MG; Start 08/30/18 at 09:00 Diltiazem HCl (Cardizem) 60 mg Q8 PO Last administered on 09/11/18 12:50; Admin Dose 60 MG; Start 08/31/18 at 22:00 Vancomycin HCl (Vancomycin Oral Syringe) 125 mg Q6 PO Last administered on 09/11/18 12:50; Admin Dose 125 MG; Start 09/01/18 at 18:00 Collagenase (Santyl) 1 applic DAILY TOP Last administered on 09/11/18 08:37; Admin Dose 1 APPLIC; Start 09/03/18 at 10:15 Heparin Sodium (Porcine) (Heparin (5000 Units/1ml)) 5,000 unit BID SC Last administered on 09/11/18 08:51; Admin Dose 5,000 UNIT; Start 09/04/18 at 21:00 Meropenem/Sodium Chloride 50 ml @ 100 mls/hr Q8 IVPB Last administered on 09/11/18 13:57; Admin Dose 100 MLS/HR; Start 09/04/18 at 14:00 Sodium Hypochlorite (Dakins Diluted (40)) 1 applic DAILY TP Last administered on 09/11/18 08:37; Admin Dose 1 APPLIC; Start 09/05/18 at 14:30 Furosemide (Lasix) 20 mg DAILY NGT Last administered on 09/10/18 08:19; Admin Dose 20 MG; Start 09/06/18 at 09:00 Lactobacillus Acidophilus/ Rhamnosus (Culturelle) 1 cap BID PO Last administered on 09/11/18at 08:36; Admin Dose 1 CAP; Start 09/09/18 at 12:30 Trimethoprim/ Sulfamethoxazole 15 ml/Dextrose 515 ml @ 343.333 mls/hr Q8 IVPB Last administered on 09/11/18at 08:36; Admin Dose 343.333 MLS/HR; Start 09/09/18 at 17:00 NEYDA DUENAS NP Sep 11, 2018 14:06
[2018-09-12] MEDS: VANCOMYCIN HCL 250 MG/5ML POSYG PO SCH ×4 (03:02→17:16)
[2018-09-12 03:31] VITALS: BP 97/51; PULSE 91; RESP 21
[2018-09-12] MEDS: MEROPENEM 1 GM/50ML(PMX) 50 ML IVPB SCH ×3 (06:46→22:55)
[2018-09-12] MEDS: DILTIAZEM 30 MG TAB PO SCH ×3 (06:47→22:56)
[2018-09-12] MEDS: LANSOPRAZOLE 30 MG CAP PO SCH (06:48)
[2018-09-12] MEDS: TRIMETHOPRIM/SULFAMETHOXAZOLE 15 ML in DEXTROSE 5% 500 ML IVPB SCH ×3 (06:49→22:55)
[2018-09-12 07:05] VITALS: BP 118/57; PULSE 93; RESP 20
[2018-09-12] MEDS: LACTOBACILLUS RHAMNOSUS CAP PO SCH ×2 (09:37→22:53)
[2018-09-12] MEDS: ASCORBIC ACID 500 MG TAB GTB SCH (09:37)
[2018-09-12] MEDS: AMIODARONE 200 MG TAB PO SCH ×2 (09:37→22:53)
[2018-09-12] MEDS: COLLAGENASE 5 GM (UD JAR) TOP SCH (09:37)
[2018-09-12] MEDS: MULTIVITAMINS 30 ML CUP GTB SCH (09:37)
[2018-09-12] MEDS: FUROSEMIDE 20 MG TAB NGT SCH (09:38)
[2018-09-12] MEDS: DAKINS 0.0125%(1/40) 473 ML SOLUTION TP SCH (09:39)
[2018-09-12] MEDS: BALSAM PERU/CASTOR OIL 60 GM TUBE TOP SCH ×2 (09:39→21:00)
[2018-09-12] MEDS: HEPARIN 5,000 UNIT/1 ML VIAL SC SCH ×2 (10:10→23:11)
[2018-09-12 11:49] VITALS: BP 120/63; PULSE 101
--- NOTE | 2018-09-12 13:40 | PN ---
Date/Time of Note Date/Time of Note DATE: 09/12/18 TIME: 13:39 Assessment/Plan Lines/Catheters IV Catheter Type (from [facility]): Saline Lock Jimenez in Place (from [facility]): No Assessment/Plan Chief Complaint/Hosp Course 1. Sacral wound:+ Wound cultures -debridement (still pending consent- bioethics pending) -continue local care -frequent turning and off-loading -low air loss mattress -vitamin c -short term zinc -optimize nutrition 2. Bacteremia: Repeat BC NGTD -Antibiotics per sensitivity -Follow cultures 3. Atrial fibrillation: controlled/uncontrolled rate -Rate control and anticoagulation per cards 4. UTI: -abx per sensitivity -frequent bladder emptying/cath care 5. Pneumonia with small bilateral pleural effusions -Pulmonary toilet -Antibiotics -Fluid management 6. Malnutrition: -Optimize nutrition 7. Dysphagia status post PEG -Tube feeds with aspiration precautions 8. Diastolic CHF with c preserved EF, history of MV endocarditis status post antibiotics -Per cardiology -Cardiac optimization 9. Liquid stools -stool studies if persistent Thank you Subjective 24 Hr Interval Summary Bioethics pending. No acute events. No fevers, chills, sob, congested cough, cp, palpitations, dugan, dizziness, vomiting, excessive wound drainage/odor. Exam/Review of Systems Vital Signs Vitals Vital Signs Date Temp Pulse Resp B/P (MAP) Pulse Ox O2 O2 Flow FiO2 Time Delivery Rate 09/12/18 98.5 101 120/63 97 Room Air 11:49 (82) 09/12/18 2.0 09:11 09/12/18 20 07:05 09/09/18 21 18:41 Intake and Output 09/11/18 09/11/18 09/12/18 1515:00 23:00 07:00 IntakeIntake Total 565 ml 1515 ml OutputOutput Total 400 ml 1100 ml BalanceBalance 565 ml 1115 ml -1100 ml Exam Free Text/Dictation Constitutional: alert, oriented (Forgetful), well developed, other Psych: nl mood/affect, anxiety (Minimal) Head: normocephalic, atraumatic Eyes: nl conjunctiva, EOMI, nl lids, nl sclera ENMT: nl external ears & nose, nl lips & teeth, mucosa pink and moist Neck: supple, non-tender; No jvd Respiratory: normal air movement; No congested cough, No labored breathing Cardiovascular: regular rate and rhythm, nl pulses Gastrointestinal: soft, non-tender, other (PEG), rectal tube (liquid stool) Genitourinary - Male: nl penis, nl scrotum Musculoskeletal: other (Muscle atrophy bilateral lower extremities); No nl extremities to inspection Extremities: normal pulses; No pitting pedal edema Neurological: nl speech; No nl strength (Generalized weakness) Skin: other (Sacral wound: Slough, minimal drainage, no odor, minimal periwound erythema); No rash or lesions Results Result Diagram: 09/12/18 0455 09/12/18 0455 ANGIE GORDON MD Sep 12, 2018 13:40
[2018-09-12 15:10] VITALS: BP 99/56; PULSE 77; RESP 20
--- NOTE | 2018-09-12 15:55 | CONS ---
Assessment/Plan Assessment/Plan Hospital Course (Demo Recall) No acute changes patient is awake and looks comfortable, no fevers overnight Blood culture on admission grew MDR A.b. Wound culture growing E. coli multidrug-resistant Acinetobacter Pseudomonas and coag negative staph species Indwelling's: PEG Antimicrobials: IV Bactrim Meropenem PO Vanco Physical examination: Fragile elderly man who is in no distress. Head atraumatic normocephalic neck is supple chest rise symmetrical breath sounds diminished bases. Heart: S1-S2. Abdomen soft bowel sounds present. Extremities without cyanosis. Skin: Patient has a large unstageable sacral wound Assessment: 1. MDR gram-negative zeinab bacteremia possibly secondary to urinary tract infection versus sacral decub vs pulmonary 2. Unstageable sacral decubitus ulcer 3. Urinary tract infection per urinalysis 4. Diarrhea/hx C. difficile colitis 5. History of MRSA endocarditis, treated 6. History of CVA with chronic encephalopathy 7. Dysphagia status post PEG 8. Atrial fibrillation status post RVR Plan: Remains stable, repeat bld cx neg, continue abx for 7 more days, pending wound debridement Consultation Date/Type/Reason Admit Date/Time Aug 29, 2018 at 07:31 Initial Consult Date Type of Consult id Requesting Provider: SOTO SHERMAN Date/Time of Note DATE: 09/12/18 TIME: 15:54 Exam/Review of Systems Exam Vitals Vital Signs Date Temp Pulse Resp B/P (MAP) Pulse Ox O2 O2 Flow FiO2 Time Delivery Rate 09/12/18 97.9 77 20 99/56 (70) 100 Room Air 15:10 09/12/18 2.0 09:11 09/09/18 21 18:41 Intake and Output 09/11/18 09/11/18 09/12/18 1515:00 23:00 07:00 IntakeIntake Total 565 ml 1515 ml OutputOutput Total 400 ml 1100 ml BalanceBalance 565 ml 1115 ml -1100 ml Results Result Diagram: 09/12/18 0455 09/12/18 0455 Results 24hrs Laboratory Tests Test 09/12/18 04:55 White Blood Count 7.6 Red Blood Count 3.37 L Hemoglobin 9.6 L Hematocrit 30.6 L Mean Corpuscular Volume 90.8 Mean Corpuscular Hemoglobin 28.5 L Mean Corpuscular Hemoglobin Concent 31.4 L Red Cell Distribution Width 17.3 H Platelet Count 330 Mean Platelet Volume 9.4 Immature Granulocytes % 0.900 H Neutrophils % 72.2 Lymphocytes % 12.7 L Monocytes % 9.5 Eosinophils % 4.2 Basophils % 0.5 Nucleated Red Blood Cells % 0.0 Immature Granulocytes # 0.070 H Neutrophils # 5.5 Lymphocytes # 1.0 Monocytes # 0.7 Eosinophils # 0.3 Basophils # 0.0 Nucleated Red Blood Cells # 0.0 Sodium Level 134 L Potassium Level 5.0 Chloride Level 101 Carbon Dioxide Level 26 Anion Gap 7 Blood Urea Nitrogen 22 H Creatinine 0.72 Est Glomerular Filtrat Rate mL/min > 60 Glucose Level 120 Calcium Level 9.8 Phosphorus Level 3.8 Magnesium Level 2.2 Medications Medication Current Medications IV Flush (NS 3 ml) 3 ml PER PROTOCOL IV ; Start 08/28/18 at 00:00 Ondansetron HCl (Zofran Inj) 4 mg Q6H PRN IV NAUSEA/VOMITING; Start 08/28/18 at 00:00 Acetaminophen (Tylenol Tab) 650 mg Q6H PRN PO .PAIN 1-3 OR TEMP; Start 08/28/18 at 00:00 Amiodarone HCl (Cordarone) 200 mg BID PO Last administered on 09/12/18at 09:37; Admin Dose 200 MG; Start 08/28/18 at 00:00 Ipratropium [place] (Atrovent 0.02% (Neb)) 0.5 mg Q6H RESP THERAPY PRN INH SHORTNESS OF BREATH; Start 08/28/18 at 00:00 Lansoprazole (Prevacid) 30 mg DAILY@0600 PO Last administered on 09/12/18at 06:48; Admin Dose 30 MG; Start 08/28/18 at 06:00 Levalbuterol (Xopenex Hfa) 1 puff Q4H RESP THERAPY PRN INH WHEEZING AND SOB; Start 08/28/18 at 00:00 Miscellaneous Information (Pending Santyl Order For Wound Care) This patient dugan... PRN PRN XX WOUND CARE; Start 08/28/18 at 19:00 Multivitamins (Multivitamin) 30 ml DAILY GTB Last administered on 09/12/18at 09:37; Admin Dose 30 ML; Start 08/30/18 at 09:00 Ascorbic Acid (Vitamin C) 500 mg DAILY GTB Last administered on 09/12/18 09:37; Admin Dose 500 MG; Start 08/30/18 at 09:00 Diltiazem HCl (Cardizem) 60 mg Q8 PO Last administered on 09/12/18 14:22; Adm in Dose 60 MG; Start 08/31/18 at 22:00 Vancomycin HCl (Vancomycin Oral Syringe) 125 mg Q6 PO Last administered on 09/12/18 12:32; Admin Dose 125 MG; Start 09/01/18 at 18:00 Collagenase (Santyl) 1 applic DAILY TOP Last administered on 09/12/18 09:37; Admin Dose 1 APPLIC; Start 09/03/18 at 10:15 Heparin Sodium (Porcine) (Heparin (5000 Units/1ml)) 5,000 unit BID SC Last administered on 09/12/18 10:10; Admin Dose 5,000 UNIT; Start 09/04/18 at 21:00 Meropenem/Sodium Chloride 50 ml @ 100 mls/hr Q8 IVPB Last administered on 09/12/18 13:26; Admin Dose 100 MLS/HR; Start 09/04/18 at 14:00 Sodium Hypochlorite (Dakins Diluted (40)) 1 applic DAILY TP Last administered on 09/12/18 09:39; Admin Dose 1 APPLIC; Start 09/05/18 at 14:30 Furosemide (Lasix) 20 mg DAILY NGT Last administered on 09/12/18 09:38; Admin Dose 20 MG; Start 09/06/18 at 09:00 Lactobacillus Acidophilus/ Rhamnosus (Culturelle) 1 cap BID PO Last administered on 09/12/18 09:37; Admin Dose 1 CAP; Start 09/09/18 at 12:30 Trimethoprim/ Sulfamethoxazole 15 ml/Dextrose 515 ml @ 343.333 mls/hr Q8 IVPB Last administered on 09/12/18 14:22; Admin Dose 343.333 MLS/HR; Start 09/09/18 at 17:00 SANDER WILL NP Sep 12, 2018 15:55
--- NOTE | 2018-09-12 16:27 | PN ---
Date/Time of Note Date/Time of Note DATE: 09/12/18 TIME: 16:23 Assessment/Plan VTE Prophylaxis Risk score (from [facility])>0 risk: 5 SCD applied (from [facility]): Yes Pharmacological prophylaxis: NA/contraindicated Pharm contraindication: low risk/ambulating Lines/Catheters IV [facility] Type [facility]from [facility] Saline Lock Urinary Cath still in place: No Assessment/Plan Assessment/Plan 72-year-old male with atrial fibrillation, multifocal infarcts, dementia, chronic encephalopathy, psychosis/schizophrenia, MV endocarditis, dysphagia with G-tube who presents with: 1. Atrial fibrillation with RVR: rate controlled presently -Continue PO amiodarone and diltiazem -Follow-up further recommendations from cardiology team 2. Healthcare associated pneumonia: X-ray earlier this admission showed worsening consolidation -Follow-up ID recommendations, for now continue current antibiotics IV Bactrim and p.o. vancomycin 3. Bacteremia -patient found with MDR gram-negative zeinab bacteremia possibly secondary to urinary tract infection versus sacral decub vs pulmonary. Also, sacral decub ulcer wound swab is polymicrobial. This may be contributing to transient bacteremia. -Per ID team, continue for now on IV Bactrim, PO vanco. 4. Dysphagia with G-tube -For now continue tube feeds 5. History of recent MV endocarditis - s/p course of IV vancomycin, completed 08/27-monitor for now 6. Stage III sacral decub ulcer -For now continue current antibiotics -Follow-up recommendations from surgery team for debridement, they are planning on this but waiting for final consent from appropriate family member, criminal justice social worker is involved as we are having some issue finding the right family member to give the consent-as stated above case now being referred to bioethics to help make this determination. Dispo: Surgical sacral decub ulcer debridement is pending consent, plan for bioethics meeting. Result Diagram: 09/12/18 0455 09/12/18 0455 Results 24hrs Laboratory Tests Test 09/12/18 04:55 White Blood Count 7.6 Red Blood Count 3.37 L Hemoglobin 9.6 L Hematocrit 30.6 L Mean Corpuscular Volume 90.8 Mean Corpuscular Hemoglobin 28.5 L Mean Corpuscular Hemoglobin Concent 31.4 L Red Cell Distribution Width 17.3 H Platelet Count 330 Mean Platelet Volume 9.4 Immature Granulocytes % 0.900 H Neutrophils % 72.2 Lymphocytes % 12.7 L Monocytes % 9.5 Eosinophils % 4.2 Basophils % 0.5 Nucleated Red Blood Cells % 0.0 Immature Granulocytes # 0.070 H Neutrophils # 5.5 Lymphocytes # 1.0 Monocytes # 0.7 Eosinophils # 0.3 Basophils # 0.0 Nucleated Red Blood Cells # 0.0 Sodium Level 134 L Potassium Level 5.0 Chloride Level 101 Carbon Dioxide Level 26 Anion Gap 7 Blood Urea Nitrogen 22 H Creatinine 0.72 Est Glomerular Filtrat Rate mL/min > 60 Glucose Level 120 Calcium Level 9.8 Phosphorus Level 3.8 Magnesium Level 2.2 Subjective 24 Hr Interval Summary Free Text/Dictation No acute overnight events. Patient awake and alert. He acknowledges that he has four children but he would prefer his brother Josr to be his surrogate decision maker. When I told the patient that he has a large sacral ulcer he said "I don't think so". Exam/Review of Systems Exam Vitals Vital Signs Date Temp Pulse Resp B/P (MAP) Pulse Ox O2 O2 Flow FiO2 Time Delivery Rate 09/12/18 97.9 77 20 99/56 (70) 100 Room Air 15:10 09/12/18 2.0 09:11 09/09/18 21 18:41 Intake and Output 09/11/18 09/11/18 09/12/18 1515:00 23:00 07:00 IntakeIntake Total 565 ml 1515 ml OutputOutput Total 400 ml 1100 ml BalanceBalance 565 ml 1115 ml -1100 ml Exam General: Frail elderly man lying in bed. Head: Normocephalic, atraumatic. Eyes: Pupils equally reactive, EOM intact ENT: Moist mucous membranes Neck: Supple, no lymphadenopathy Respiratory: Slightly distant breath sounds bilaterally Cardiovascular: No rubs or gallops Abdominal: Soft, non-tender, non-distended, no peritoneal sign MSK: No lower extremity bilaterally. Severe leg muscle atrophy. Neuro: Awake, alert, oriented to name only. Not location ("[place], [place]") or date ("August 1987") Results Results 24hrs Laboratory Tests Test 09/12/18 04:55 White Blood Count 7.6 Red Blood Count 3.37 L Hemoglobin 9.6 L Hematocrit 30.6 L Mean Corpuscular Volume 90.8 Mean Corpuscular Hemoglobin 28.5 L Mean Corpuscular Hemoglobin Concent 31.4 L Red Cell Distribution Width 17.3 H Platelet Count 330 Mean Platelet Volume 9.4 Immature Granulocytes % 0.900 H Neutrophils % 72.2 Lymphocytes % 12.7 L Monocytes % 9.5 Eosinophils % 4.2 Basophils % 0.5 Nucleated Red Blood Cells % 0.0 Immature Granulocytes # 0.070 H Neutrophils # 5.5 Lymphocytes # 1.0 Monocytes # 0.7 Eosinophils # 0.3 Basophils # 0.0 Nucleated Red Blood Cells # 0.0 Sodium Level 134 L Potassium Level 5.0 Chloride Level 101 Carbon Dioxide Level 26 Anion Gap 7 Blood Urea Nitrogen 22 H Creatinine 0.72 Est Glomerular Filtrat Rate mL/min > 60 Glucose Level 120 Calcium Level 9.8 Phosphorus Level 3.8 Magnesium Level 2.2 Medications Medication Current Medications IV Flush (NS 3 ml) 3 ml PER PROTOCOL IV ; Start 08/28/18 at 00:00 Ondansetron HCl (Zofran Inj) 4 mg Q6H PRN IV NAUSEA/VOMITING; Start 08/28/18 at 00:00 Acetaminophen (Tylenol Tab) 650 mg Q6H PRN PO .PAIN 1-3 OR TEMP; Start 08/28/18 at 00:00 Amiodarone HCl (Cordarone) 200 mg BID PO Last administered on 09/12/18at 09:37; Admin Dose 200 MG; Start 08/28/18 at 00:00 Ipratropium [place] (Atrovent 0.02% (Neb)) 0.5 mg Q6H RESP THERAPY PRN INH SHORTNESS OF BREATH; Start 08/28/18 at 00:00 Lansoprazole (Prevacid) 30 mg DAILY@0600 PO Last administered on 09/12/18at 06:48; Admin Dose 30 MG; Start 08/28/18 at 06:00 Levalbuterol (Xopenex Hfa) 1 puff Q4H RESP THERAPY PRN INH WHEEZING AND SOB; Start 08/28/18 at 00:00 Miscellaneous Information (Pending Santyl Order For Wound Care) This patient dugan... PRN PRN XX WOUND CARE; Start 08/28/18 at 19:00 Multivitamins (Multivitamin) 30 ml DAILY GTB Last administered on 09/12/18at 09:37; Admin Dose 30 ML; Start 08/30/18 at 09:00 Ascorbic Acid (Vitamin C) 500 mg DAILY GTB Last administered on 09/12/18 09:37; Admin Dose 500 MG; Start 08/30/18 at 09:00 Diltiazem HCl (Cardizem) 60 mg Q8 PO Last administered on 09/12/18 14:22; Admin Dose 60 MG; Start 08/31/18 at 22:00 Vancomycin HCl (Vancomycin Oral Syringe) 125 mg Q6 PO Last administered on 09/12/18 12:32; Admin Dose 125 MG; Start 09/01/18 at 18:00 Collagenase (Santyl) 1 applic DAILY TOP Last administered on 09/12/18 09:37; Admin Dose 1 APPLIC; Start 09/03/18 at 10:15 Heparin Sodium (Porcine) (Heparin (5000 Units/1ml)) 5,000 unit BID SC Last administered on 09/12/18 10:10; Admin Dose 5,000 UNIT; Start 09/04/18 at 21:00 Meropenem/Sodium Chloride 50 ml @ 100 mls/hr Q8 IVPB Last administered on 09/12/18 13:26; Admin Dose 100 MLS/HR; Start 09/04/18 at 14:00 Sodium Hypochlorite (Dakins Diluted (40)) 1 applic DAILY TP Last administered on 09/12/18 09:39; Admin Dose 1 APPLIC; Start 09/05/18 at 14:30 Furosemide (Lasix) 20 mg DAILY NGT Last administered on 09/12/18 09:38; Admin Dose 20 MG; Start 09/06/18 at 09:00 Lactobacillus Acidophilus/ Rhamnosus (Culturelle) 1 cap BID PO Last administered on 09/12/18 09:37; Admin Dose 1 CAP; Start 09/09/18 at 12:30 Trimethoprim/ Sulfamethoxazole 15 ml/Dextrose 515 ml @ 343.333 mls/hr Q8 IVPB Last administered on 09/12/18 14:22; Admin Dose 343.333 MLS/HR; Start 09/09/18 at 17:00 RACIEL HUMPHREY MD Sep 12, 2018 16:27
--- NOTE | 2018-09-12 17:13 | CONS ---
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 Encephalopathy CVA, hemorrhagic History of nonsustained ventricular tachycardia Continue Cardizem and titrate as needed Antibiotics as per infectious disease Lasix as needed Consultation Date/Type/Reason Admit Date/Time Aug 29, 2018 at 07:31 Initial Consult Date Type of Consult Cardiology Requesting Provider: SOTO SHERMAN Date/Time of Note DATE: 09/12/18 TIME: 17:12 24 HR Interval Summary Free Text/Dictation seen and examined Exam/Review of Systems Vital Signs Vitals Vital Signs Date Temp Pulse Resp B/P (MAP) Pulse Ox O2 O2 Flow FiO2 Time Delivery Rate 09/12/18 97.9 77 20 99/56 (70) 100 Room Air 15:10 09/12/18 2.0 09:11 09/09/18 21 18:41 Intake and Output 09/11/18 09/11/18 09/12/18 1515:00 23:00 07:00 IntakeIntake Total 565 ml 1515 ml OutputOutput Total 400 ml 1100 ml BalanceBalance 565 ml 1115 ml -1100 ml Exam Constitutional: alert (nad) Head: normocephalic Respiratory: other (course bs, no wheeze) Cardiovascular: irregular rhythm (s1s2) Gastrointestinal: soft, non-tender, bowel sounds Extremities: edema (no) Labs Result Diagram: 09/12/18 0455 09/12/18 0455 Results 24hrs Laboratory Tests Test 09/12/18 04:55 White Blood Count 7.6 Red Blood Count 3.37 L Hemoglobin 9.6 L Hematocrit 30.6 L Mean Corpuscular Volume 90.8 Mean Corpuscular Hemoglobin 28.5 L Mean Corpuscular Hemoglobin Concent 31.4 L Red Cell Distribution Width 17.3 H Platelet Count 330 Mean Platelet Volume 9.4 Immature Granulocytes % 0.900 H Neutrophils % 72.2 Lymphocytes % 12.7 L Monocytes % 9.5 Eosinophils % 4.2 Basophils % 0.5 Nucleated Red Blood Cells % 0.0 Immature Granulocytes # 0.070 H Neutrophils # 5.5 Lymphocytes # 1.0 Monocytes # 0.7 Eosinophils # 0.3 Basophils # 0.0 Nucleated Red Blood Cells # 0.0 Sodium Level 134 L Potassium Level 5.0 Chloride Level 101 Carbon Dioxide Level 26 Anion Gap 7 Blood Urea Nitrogen 22 H Creatinine 0.72 Est Glomerular Filtrat Rate mL/min > 60 Glucose Level 120 Calcium Level 9.8 Phosphorus Level 3.8 Magnesium Level 2.2 Medications Medications Current Medications IV Flush (NS 3 ml) 3 ml PER PROTOCOL IV ; Start 08/28/18 at 00:00 Ondansetron HCl (Zofran Inj) 4 mg Q6H PRN IV NAUSEA/VOMITING; Start 08/28/18 at 00:00 Acetaminophen (Tylenol Tab) 650 mg Q6H PRN PO .PAIN 1-3 OR TEMP; Start 08/28/18 at 00:00 Amiodarone HCl (Cordarone) 200 mg BID PO Last administered on 09/12/18 09:37; Admin Dose 200 MG; Start 08/28/18 at 00:00 Ipratropium [place] (Atrovent 0.02% (Neb)) 0.5 mg Q6H RESP THERAPY PRN INH SHORTNESS OF BREATH; Start 08/28/18 at 00:00 Lansoprazole (Prevacid) 30 mg DAILY@0600 PO Last administered on 09/12/18at 06:48; Admin Dose 30 MG; Start 08/28/18 at 06:00 Levalbuterol (Xopenex Hfa) 1 puff Q4H RESP THERAPY PRN INH WHEEZING AND SOB; Start 08/28/18 at 00:00 Miscellaneous Information (Pending [facility] Order For Wound Care) This patient dugan... PRN PRN XX WOUND CARE; Start 08/28/18 at 19:00 Multivitamins (Multivitamin) 30 ml DAILY GTB Last administered on 09/12/18at 09:37; Admin Dose 30 ML; Start 08/30/18 at 09:00 Ascorbic Acid (Vitamin C) 500 mg DAILY GTB Last administered on 09/12/18 09:37; Admin Dose 500 MG; Start 08/30/18 at 09:00 Diltiazem HCl (Cardizem) 60 mg Q8 PO Last administered on 09/12/18 14:22; Admin Dose 60 MG; Start 08/31/18 at 22:00 Vancomycin HCl (Vancomycin Oral Syringe) 125 mg Q6 PO Last administered on 09/12/18at 12:32; Admin Dose 125 MG; Start 09/01/18 at 18:00 Collagenase (Santyl) 1 applic DAILY TOP Last administered on 09/12/18 09:37; Admin Dose 1 APPLIC; Start 09/03/18 at 10:15 Heparin Sodium (Porcine) (Heparin (5000 Units/1ml)) 5,000 unit BID SC Last administered on 09/12/18 10:10; Admin Dose 5,000 UNIT; Start 09/04/18 at 21:00 Meropenem/Sodium Chloride 50 ml @ 100 mls/hr Q8 IVPB Last administered on 09/12/18 13:26; Admin Dose 100 MLS/HR; Start 09/04/18 at 14:00 Sodium Hypochlorite (Dakins Diluted ()) 1 applic DAILY TP Last administered on 09/12/18 09:39; Admin Dose 1 APPLIC; Start 09/05/18 at 14:30 Furosemide (Lasix) 20 mg DAILY NGT Last administered on 09/12/18 09:38; Admin Dose 20 MG; Start 09/06/18 at 09:00 Lactobacillus Acidophilus/ Rhamnosus (Culturelle) 1 cap BID PO Last administered on 09/12/18 09:37; Admin Dose 1 CAP; Start 09/09/18 at 12:30 Trimethoprim/ Sulfamethoxazole 15 ml/Dextrose 515 ml @ 343.333 mls/hr Q8 IVPB Last administered on 09/12/18 14:22; Admin Dose 343.333 MLS/HR; Start 09/09/18 at 17:00 Charan Cottrell DO Sep 12, 2018 17:13
[2018-09-12 20:00] VITALS: BP 101/55; PULSE 83; RESP 19
[2018-09-13] VITALS: BP 131/72; PULSE 92; RESP 18
[2018-09-13] MEDS: VANCOMYCIN HCL 250 MG/5ML POSYG PO SCH ×4 (02:30→17:34)
[2018-09-13 04:00] VITALS: BP 119/56; PULSE 87; RESP 19
[2018-09-13] MEDS: MEROPENEM 1 GM/50ML(PMX) 50 ML IVPB SCH ×3 (05:31→21:39)
[2018-09-13] MEDS: TRIMETHOPRIM/SULFAMETHOXAZOLE 15 ML in DEXTROSE 5% 500 ML IVPB SCH ×3 (05:31→21:39)
[2018-09-13] MEDS: DILTIAZEM 30 MG TAB PO SCH ×3 (05:32→21:38)
[2018-09-13] MEDS: LANSOPRAZOLE 30 MG CAP PO SCH (05:33)
[2018-09-13 07:35] VITALS: BP 131/68; PULSE 86; RESP 20
[2018-09-13] MEDS: ASCORBIC ACID 500 MG TAB GTB SCH (09:09)
[2018-09-13] MEDS: LACTOBACILLUS RHAMNOSUS CAP PO SCH ×2 (09:09→20:23)
[2018-09-13] MEDS: COLLAGENASE 5 GM (UD JAR) TOP SCH (09:09)
[2018-09-13] MEDS: MULTIVITAMINS 30 ML CUP GTB SCH (09:09)
[2018-09-13] MEDS: FUROSEMIDE 20 MG TAB NGT SCH (09:09)
[2018-09-13] MEDS: DAKINS 0.0125%(1/40) 473 ML SOLUTION TP SCH (09:10)
[2018-09-13] MEDS: BALSAM PERU/CASTOR OIL 60 GM TUBE TOP SCH ×2 (09:10→20:24)
[2018-09-13] MEDS: AMIODARONE 200 MG TAB PO SCH ×2 (09:11→20:23)
[2018-09-13] MEDS: HEPARIN 5,000 UNIT/1 ML VIAL SC SCH ×2 (09:14→20:59)
--- NOTE | 2018-09-13 09:36 | PN ---
Date/Time of Note Date/Time of Note DATE: 09/13/18 TIME: 09:31 Assessment/Plan Lines/Catheters IV Catheter Type (from Nrs): Saline Lock Jimenez in Place (from Nrs): No Assessment/Plan Chief Complaint/Hosp Course 1. Sacral wound:+ Wound cultures -debridement (still pending consent- pt not consentable- bioethics pending wednesday) -continue local care -frequent turning and off-loading -low air loss mattress -vitamin c -short term zinc -optimize nutrition 2. Bacteremia: Repeat BC NGTD -Antibiotics per sensitivity -Follow cultures 3. Atrial fibrillation: controlled/uncontrolled rate -Rate control and anticoagulation per cards 4. UTI: -abx per sensitivity -frequent bladder emptying/cath care 5. Pneumonia with small bilateral pleural effusions -Pulmonary toilet -Antibiotics -Fluid management 6. Malnutrition: -Optimize nutrition 7. Dysphagia status post PEG -Tube feeds with aspiration precautions 8. Diastolic CHF with c preserved EF, history of MV endocarditis status post antibiotics -Per cardiology -Cardiac optimization 9. Liquid stools -stool studies if persistent Thank you. Patient seen and examined in collaboration with Dr. Serge Cherry. Subjective 24 Hr Interval Summary Bioethice meeting planned for wednesday. Appears comfortable. Nonverbal indicators of pain not present. No fevers, labored breathing, congested cough, vomiting, diarrhea, sz, rash, excessive wound drainage/odor. Exam/Review of Systems Vital Signs Vitals Vital Signs Date Temp Pulse Resp B/P (MAP) Pulse Ox O2 O2 Flow FiO2 Time Delivery Rate 09/13/18 Nasal 2.0 08:00 Cannula 09/13/18 97.4 86 20 131/68 100 07:35 (89) 09/09/18 21 18:41 Intake and Output 09/12/18 09/12/18 09/13/18 1515:00 23:00 07:00 IntakeIntake Total 565 ml 950 ml OutputOutput Total 1350 ml 600 ml BalanceBalance 565 ml -400 ml -600 ml Exam Free Text/Dictation Constitutional: alert, oriented ( x1-2; Forgetful), well developed, other Psych: nl mood/affect, anxiety (Minimal) Head: normocephalic, atraumatic Eyes: nl conjunctiva, EOMI, nl lids, nl sclera ENMT: nl external ears & nose, nl lips & teeth, mucosa pink and moist Neck: supple, non-tender; No jvd Respiratory: normal air movement; No congested cough, No labored breathing Cardiovascular: regular rate and rhythm, nl pulses Gastrointestinal: soft, non-tender, other (PEG), rectal tube (liquid stool) Genitourinary - Male: nl penis, nl scrotum Musculoskeletal: other (Muscle atrophy bilateral lower extremities); No nl extremities to inspection Extremities: normal pulses; No pitting pedal edema Neurological: nl speech; No nl strength (Generalized weakness) Skin: other (Sacral wound: Slough, minimal drainage, no odor, minimal periwound erythema); No rash or lesions Results Result Diagram: 09/12/18 0455 09/12/18 0455 AUSTEN WESTON NP Sep 13, 2018 09:36
[2018-09-13 11:54] VITALS: BP 125/61; PULSE 96; RESP 22
--- NOTE | 2018-09-13 13:49 | CONS ---
Assessment/Plan Assessment/Plan Hospital Course (Demo Recall) No acute changes, patient looks comfortable, no fevers overnight Blood culture on admission grew MDR A.b. Wound culture growing E. coli multidrug-resistant Acinetobacter Pseudomonas and coag negative staph species Indwelling's: PEG Antimicrobials: IV Bactrim Meropenem PO Vanco Physical examination: Fragile elderly man who is in no distress. Head atraumatic normocephalic neck is supple chest rise symmetrical breath sounds diminished bases. Heart: S1-S2. Abdomen soft bowel sounds present. Extremities without cyanosis. Skin: Patient has a large unstageable sacral wound Assessment: 1. MDR gram-negative zeinab bacteremia possibly secondary to urinary tract infection versus sacral decub vs pulmonary 2. Unstageable sacral decubitus ulcer 3. Urinary tract infection per urinalysis 4. Diarrhea/hx C. difficile colitis 5. History of MRSA endocarditis, treated 6. History of CVA with chronic encephalopathy 7. Dysphagia status post PEG 8. Atrial fibrillation status post RVR Plan: Remains stable, repeat bld cx neg, continue abx for 6 more days, pending wound debridement Consultation Date/Type/Reason Admit Date/Time Aug 29, 2018 at 07:31 Initial Consult Date Type of Consult id Requesting Provider: SOTO SHERMAN Date/Time of Note DATE: 09/13/18 TIME: 13:47 Exam/Review of Systems Exam Vitals Vital Signs Date Temp Pulse Resp B/P (MAP) Pulse Ox O2 O2 Flow FiO2 Time Delivery Rate 09/13/18 97.8 96 22 125/61 99 Nasal 11:54 (82) Cannula 09/13/18 2.0 08:00 09/09/18 21 18:41 Intake and Output 09/12/18 09/12/18 09/13/18 1515:00 23:00 07:00 IntakeIntake Total 565 ml 950 ml OutputOutput Total 1350 ml 600 ml BalanceBalance 565 ml -400 ml -600 ml Results Result Diagram: 09/12/18 0455 09/12/18 0455 Medications Medication Current Medications IV Flush (NS 3 ml) 3 ml PER PROTOCOL IV ; Start 08/28/18 at 00:00 Ondansetron HCl (Zofran Inj) 4 mg Q6H PRN IV NAUSEA/VOMITING; Start 08/28/18 at 00:00 Acetaminophen (Tylenol Tab) 650 mg Q6H PRN PO .PAIN 1-3 OR TEMP; Start 08/28/18 at 00:00 Amiodarone HCl (Cordarone) 200 mg BID PO Last administered on 09/13/18 09:11; Admin Dose 200 MG; Start 08/28/18 at 00:00 Ipratropium [place] (Atrovent 0.02% (Neb)) 0.5 mg Q6H RESP THERAPY PRN INH SHORTNESS OF BREATH; Start 08/28/18 at 00:00 Lansoprazole (Prevacid) 30 mg DAILY@0600 PO Last administered on 09/13/18 05:33; Admin Dose 30 MG; Start 08/28/18 at 06:00 Levalbuterol (Xopenex Hfa) 1 puff Q4H RESP THERAPY PRN INH WHEEZING AND SOB; Start 08/28/18 at 00:00 Miscellaneous Information (Pending Santyl Order For Wound Care) This patient dugan... PRN PRN XX WOUND CARE; Start 08/28/18 at 19:00 Multivitamins (Multivitamin) 30 ml DAILY GTB Last administered on 09/13/18 09:09; Admin Dose 30 ML; Start 08/30/18 at 09:00 Ascorbic Acid (Vitamin C) 500 mg DAILY GTB Last administered on 09/13/18 09:09; Admin Dose 500 MG; Start 08/30/18 at 09:00 Diltiazem HCl (Cardizem) 60 mg Q8 PO Last administered on 09/13/18 13:08; Admin Dose 60 MG; Start 08/31/18 at 22:00 Vancomycin HCl (Vancomycin Oral Syringe) 125 mg Q6 PO Last administered on 09/13/18 11:22; Admin Dose 125 MG; Start 09/01/18 at 18:00 Collagenase (Santyl) 1 applic DAILY TOP Last administered on 09/13/18 09:09; Admin Dose 1 APPLIC; Start 09/03/18 at 10:15 Heparin Sodium (Porcine) (Heparin (5000 Units/1ml)) 5,000 unit BID SC Last administered on 09/13/18 09:14; Admin Dose 5,000 UNIT; Start 09/04/18 at 21:00 Meropenem/Sodium Chloride 50 ml @ 100 mls/hr Q8 IVPB Last administered on 09/13/18 13:08; Admin Dose 100 MLS/HR; Start 09/04/18 at 14:00 Sodium Hypochlorite (Dakins Diluted (40)) 1 applic DAILY TP Last administered on 09/13/18 09:10; Admin Dose 1 APPLIC; Start 09/05/18 at 14:30 Furosemide (Lasix) 20 mg DAILY NGT Last administered on 09/13/18 09:09; Admin Dose 20 MG; Start 09/06/18 at 09:00 Lactobacillus Acidophilus/ Rhamnosus (Culturelle) 1 cap BID PO Last administered on 09/13/18 09:09; Admin Dose 1 CAP; Start 09/09/18 at 12:30 Trimethoprim/ Sulfamethoxazole 15 ml/Dextrose 515 ml @ 343.333 mls/hr Q8 IVPB Last administered on 09/13/18 05:31; Admin Dose 343.333 MLS/HR; Start 09/09/18 at 17:00 SANDER WILL NP Sep 13, 2018 13:49
[2018-09-13 15:31] VITALS: BP 117/56; PULSE 75; RESP 20
--- NOTE | 2018-09-13 16:06 | PN ---
Date/Time of Note Date/Time of Note DATE: 09/13/18 TIME: 16:05 Assessment/Plan VTE Prophylaxis Risk score (from Ns)>0 risk: 6 SCD applied (from [facility] [place] No SCD contraindicated: low risk/ambulating Pharmacological prophylaxis: NA/contraindicated Pharm contraindication: low risk/ambulating Lines/Catheters IV C[facility] Type [facility]from [facility] Saline Lock Urinary Cath still in place: No Assessment/Plan Assessment/Plan 72-year-old male with atrial fibrillation, multifocal infarcts, dementia, chronic encephalopathy, psychosis/schizophrenia, MV endocarditis, dysphagia with G-tube who presents with: 1. Atrial fibrillation with RVR: rate controlled presently -Continue PO amiodarone and diltiazem -Follow-up further recommendations from cardiology team 2. Healthcare associated pneumonia: X-ray earlier this admission showed worsening consolidation -Follow-up ID recommendations, for now continue current antibiotics IV Bactrim and p.o. vancomycin 3. Bacteremia -patient found with MDR gram-negative zeinab bacteremia possibly secondary to urinary tract infection versus sacral decub vs pulmonary. Also, sacral decub ulcer wound swab is polymicrobial. This may be contributing to transient bacteremia. -Per ID team, continue for now on IV Bactrim, PO vanco. 4. Dysphagia with G-tube -For now continue tube feeds 5. History of recent MV endocarditis - s/p course of IV vancomycin, completed 08/27-monitor for now 6. Stage III sacral decub ulcer -For now continue current antibiotics -Follow-up recommendations from surgery team for debridement, they are planning on this but waiting for final consent from appropriate family member, social services counselor is involved as we are having some issue finding the right family member to give the consent-as stated above case now being referred to bioethics to help make this determination. Dispo: Surgical sacral decub ulcer debridement is pending consent, plan for bioethics meeting. Result Diagram: 09/12/18 0455 09/12/18 0455 Subjective 24 Hr Interval Summary Free Text/Dictation No acute overnight events. Exam/Review of Systems Exam Vitals Vital Signs Date Temp Pulse Resp B/P (MAP) Pulse Ox O2 O2 Flow FiO2 Time Delivery Rate 09/13/18 97.9 75 20 117/56 100 Nasal 15:31 (76) Cannula 09/13/18 2.0 08:00 09/09/18 21 18:41 Intake and Output 09/12/18 09/12/18 09/13/18 1515:00 23:00 07:00 IntakeIntake Total 565 ml 950 ml OutputOutput Total 1350 ml 600 ml BalanceBalance 565 ml -400 ml -600 ml Exam General: Frail elderly man lying in bed. Head: Normocephalic, atraumatic. Eyes: Pupils equally reactive, EOM intact ENT: Moist mucous membranes Neck: Supple, no lymphadenopathy Respiratory: Slightly distant breath sounds bilaterally Cardiovascular: No rubs or gallops Abdominal: Soft, non-tender, non-distended, no peritoneal sign MSK: No lower extremity bilaterally. Severe leg muscle atrophy. Medications Medication Current Medications IV Flush (NS 3 ml) 3 ml PER PROTOCOL IV ; Start 08/28/18 at 00:00 Ondansetron HCl (Zofran Inj) 4 mg Q6H PRN IV NAUSEA/VOMITING; Start 08/28/18 at 00:00 Acetaminophen (Tylenol Tab) 650 mg Q6H PRN PO .PAIN 1-3 OR TEMP; Start 08/28/18 at 00:00 Amiodarone HCl (Cordarone) 200 mg BID PO Last administered on 09/13/18at 09:11; Admin Dose 200 MG; Start 08/28/18 at 00:00 Ipratropium [place] (Atrovent 0.02% (Neb)) 0.5 mg Q6H RESP THERAPY PRN INH SHORTNESS OF BREATH; Start 08/28/18 at 00:00 Lansoprazole (Prevacid) 30 mg DAILY@0600 PO Last administered on 09/13/18at 05:33; Admin Dose 30 MG; Start 08/28/18 at 06:00 Levalbuterol (Xopenex Hfa) 1 puff Q4H RESP THERAPY PRN INH WHEEZING AND SOB; Start 08/28/18 at 00:00 Miscellaneous Information ([facility]) This patient dugan... PRN PRN XX WOUND CARE; Start 08/28/18 at 19:00 Multivitamins (Multivitamin) 30 ml DAILY GTB Last administered on 09/13/18at 09:09; Admin Dose 30 ML; Start 08/30/18 at 09:00 Ascorbic Acid (Vitamin C) 500 mg DAILY GTB Last administered on 09/13/18 09:09; Admin Dose 500 MG; Start 08/30/18 at 09:00 Diltiazem HCl (Cardizem) 60 mg Q8 PO Last administered on 09/13/18 13:08; Admin Dose 60 MG; Start 08/31/18 at 22:00 Vancomycin HCl (Vancomycin Oral Syringe) 125 mg Q6 PO Last administered on 09/13/18 11:22; Admin Dose 125 MG; Start 09/01/18 at 18:00 Collagenase (Santyl) 1 applic DAILY TOP Last administered on 09/13/18 09:09; Admin Dose 1 APPLIC; Start 09/03/18 at 10:15 Heparin Sodium (Porcine) (Heparin (5000 Units/1ml)) 5,000 unit BID SC Last administered on 09/13/18 09:14; Admin Dose 5,000 UNIT; Start 09/04/18 at 21:00 Meropenem/Sodium Chloride 50 ml @ 100 mls/hr Q8 IVPB Last administered on 09/13/18 13:08; Admin Dose 100 MLS/HR; Start 09/04/18 at 14:00 Sodium Hypochlorite (Dakins Diluted (/40)) 1 applic DAILY TP Last administered on 09/13/18 09:10; Admin Dose 1 APPLIC; Start 09/05/18 at 14:30 Furosemide (Lasix) 20 mg DAILY NGT Last administered on 09/13/18 09:09; Admin Dose 20 MG; Start 09/06/18 at 09:00 Lactobacillus Acidophilus/ Rhamnosus (Culturelle) 1 cap BID PO Last administered on 09/13/18 09:09; Admin Dose 1 CAP; Start 09/09/18 at 12:30 Trimethoprim/ Sulfamethoxazole 15 ml/Dextrose 515 ml @ 343.333 mls/hr Q8 IVPB Last administered on 09/13/18 15:00; Admin Dose 343.333 MLS/HR; Start 09/09/18 at 17:00 RACIEL HUMPHREY MD Sep 13, 2018 16:06
--- NOTE | 2018-09-13 18:44 | CONS ---
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 Encephalopathy CVA, hemorrhagic History of nonsustained ventricular tachycardia Continue Cardizem and titrate as needed Antibiotics as per infectious disease Lasix as needed Consultation Date/Type/Reason Admit Date/Time Aug 29, 2018 at 07:31 Initial Consult Date Type of Consult Cardiology Requesting Provider: SOTO SHERMAN Date/Time of Note DATE: 09/13/18 TIME: 18:43 24 HR Interval Summary Free Text/Dictation Seen and examined Exam/Review of Systems Vital Signs Vitals Vital Signs Date Temp Pulse Resp B/P (MAP) Pulse Ox O2 O2 Flow FiO2 Time Delivery Rate 09/13/18 97.9 75 20 117/56 100 Nasal 15:31 (76) Cannula 09/13/18 2.0 08:00 09/09/18 21 18:41 Intake and Output 09/12/18 09/12/18 09/13/18 1515:00 23:00 07:00 IntakeIntake Total 565 ml 950 ml OutputOutput Total 1350 ml 600 ml BalanceBalance 565 ml -400 ml -600 ml Exam Constitutional: alert (No apparent distress) Head: normocephalic Respiratory: other (Coarse breath sounds bilaterally, no wheezing) Cardiovascular: irregular rhythm (S1-S2 heard) Gastrointestinal: soft, non-tender, bowel sounds Extremities: other (No edema) Labs Result Diagram: 09/12/18 0455 09/12/18 0455 Medications Medications Current Medications IV Flush (NS 3 ml) 3 ml PER PROTOCOL IV ; Start 08/28/18 at 00:00 Ondansetron HCl (Zofran Inj) 4 mg Q6H PRN IV NAUSEA/VOMITING; Start 08/28/18 at 00:00 Acetaminophen (Tylenol Tab) 650 mg Q6H PRN PO .PAIN 1-3 OR TEMP; Start 08/28/18 at 00:00 Amiodarone HCl (Cordarone) 200 mg BID PO Last administered on 09/13/18at 09:11; Admin Dose 200 MG; Start 08/28/18 at 00:00 Ipratropium [place] (Atrovent 0.02% (Neb)) 0.5 mg Q6H RESP THERAPY PRN INH SHORTNESS OF BREATH; Start 08/28/18 at 00:00 Lansoprazole (Prevacid) 30 mg DAILY@0600 PO Last administered on 09/13/18 05:33; Admin Dose 30 MG; Start 08/28/18 at 06:00 Levalbuterol (Xopenex Hfa) 1 puff Q4H RESP THERAPY PRN INH WHEEZING AND SOB; Start 08/28/18 at 00:00 Miscellaneous Information (Pending Santyl Order For Wound Care) This patient dugan... PRN PRN XX WOUND CARE; Start 08/28/18 at 19:00 Multivitamins (Multivitamin) 30 ml DAILY GTB Last administered on 09/13/18 09:09; Admin Dose 30 ML; Start 08/30/18 at 09:00 Ascorbic Acid (Vitamin C) 500 mg DAILY GTB Last administered on 09/13/18 09:09; Admin Dose 500 MG; Start 08/30/18 at 09:00 Diltiazem HCl (Cardizem) 60 mg Q8 PO Last administered on 09/13/18 13:08; Admin Dose 60 MG; Start 08/31/18 at 22:00 Vancomycin HCl (Vancomycin Oral Syringe) 125 mg Q6 PO Last administered on 09/13/18 17:34; Admin Dose 125 MG; Start 09/01/18 at 18:00 Collagenase (Santyl) 1 applic DAILY TOP Last administered on 09/13/18 09:09; Admin Dose 1 APPLIC; Start 09/03/18 at 10:15 Heparin Sodium (Porcine) (Heparin (5000 Units/1ml)) 5,000 unit BID SC Last administered on 09/13/18 09:14; Admin Dose 5,000 UNIT; Start 09/04/18 at 21:00 Meropenem/Sodium Chloride 50 ml @ 100 mls/hr Q8 IVPB Last administered on 09/13/18 13:08; Admin Dose 100 MLS/HR; Start 09/04/18 at 14:00 Sodium Hypochlorite (Dakins Diluted (1/40)) 1 applic DAILY TP Last administered on 09/13/18 09:10; Admin Dose 1 APPLIC; Start 09/05/18 at 14:30 Furosemide (Lasix) 20 mg DAILY NGT Last administered on 09/13/18 09:09; Admin Dose 20 MG; Start 09/06/18 at 09:00 Lactobacillus Acidophilus/ Rhamnosus (Culturelle) 1 cap BID PO Last administered on 09/13/18at 09:09; Admin Dose 1 CAP; Start 09/09/18 at 12:30 Trimethoprim/ Sulfamethoxazole 15 ml/Dextrose 515 ml @ 343.333 mls/hr Q8 IVPB Last administered on 09/13/18at 15:00; Admin Dose 343.333 MLS/HR; Start 09/09/18 at 17:00 Charan Cottrell DO Sep 13, 2018 18:44
[2018-09-13 20:00] VITALS: BP 140/66; PULSE 78; RESP 20
[2018-09-14] MEDS: VANCOMYCIN HCL 250 MG/5ML POSYG PO SCH ×5 (00:15→23:26)
[2018-09-14 00:34] VITALS: BP 142/76; PULSE 86; RESP 20
[2018-09-14 04:04] VITALS: BP 120/58; PULSE 85; RESP 20
[2018-09-14] MEDS: TRIMETHOPRIM/SULFAMETHOXAZOLE 15 ML in DEXTROSE 5% 500 ML IVPB SCH ×3 (05:38→23:26)
[2018-09-14] MEDS: MEROPENEM 1 GM/50ML(PMX) 50 ML IVPB SCH ×3 (05:38→21:11)
[2018-09-14] MEDS: LANSOPRAZOLE 30 MG CAP PO SCH (05:39)
[2018-09-14] MEDS: DILTIAZEM 30 MG TAB PO SCH ×3 (05:39→21:10)
[2018-09-14 07:26] VITALS: BP 131/71; PULSE 74; RESP 24
[2018-09-14] MEDS: LACTOBACILLUS RHAMNOSUS CAP PO SCH ×2 (08:40→21:10)
[2018-09-14] MEDS: FUROSEMIDE 20 MG TAB NGT SCH (08:41)
[2018-09-14] MEDS: AMIODARONE 200 MG TAB PO SCH ×2 (08:41→21:10)
[2018-09-14] MEDS: HEPARIN 5,000 UNIT/1 ML VIAL SC SCH ×2 (08:50→21:44)
[2018-09-14] MEDS: ASCORBIC ACID 500 MG TAB GTB SCH (08:53)
[2018-09-14] MEDS: MULTIVITAMINS 30 ML CUP GTB SCH (08:53)
[2018-09-14] MEDS: COLLAGENASE 5 GM (UD JAR) TOP SCH (08:54)
[2018-09-14] MEDS: DAKINS 0.0125%(1/40) 473 ML SOLUTION TP SCH (08:54)
[2018-09-14] MEDS: BALSAM PERU/CASTOR OIL 60 GM TUBE TOP SCH ×2 (08:55→21:53)
--- NOTE | 2018-09-14 10:31 | PN ---
Date/Time of Note Date/Time of Note DATE: 09/14/18 TIME: 10:29 Assessment/Plan Lines/Catheters IV Catheter Type (from [facility]): Saline Lock Jimenez in Place (from [facility]): No Assessment/Plan Chief Complaint/Hosp Course 1. Sacral wound:+ Wound cultures -debridement (still pending consent- pt not consentable- bioethics pending today) -continue local care -frequent turning and off-loading -low air loss mattress -vitamin c -short term zinc -optimize nutrition 2. Bacteremia: Repeat BC NGTD -Antibiotics per sensitivity> per ID -Follow cultures 3. Atrial fibrillation: controlled/uncontrolled rate -Rate control and anticoagulation per cards 4. UTI: -abx per sensitivity -frequent bladder emptying/cath care 5. Pneumonia with small bilateral pleural effusions -Pulmonary toilet -Antibiotics -Fluid management 6. Malnutrition: -Optimize nutrition 7. Dysphagia status post PEG -Tube feeds with aspiration precautions 8. Diastolic CHF with c preserved EF, history of MV endocarditis status post antibiotics -Per cardiology -Cardiac optimization 9. Liquid stools -stool studies if persistent Thank you. Patient seen and examined in collaboration with Dr. Serge Cherry. Subjective 24 Hr Interval Summary Pending bioethics committee meeting today. Feels okay. No acute complaints. No fevers, labored breathing, congested cough, vomting, diarrhea, sz, rash. Appears comfortable. Nonverbal indicators of pain not present. Exam/Review of Systems Vital Signs Vitals Vital Signs Date Temp Pulse Resp B/P (MAP) Pulse Ox O2 O2 Flow FiO2 Time Delivery Rate 09/14/18 97.8 74 24 131/71 100 Nasal 07:26 (91) Cannula 09/14/18 2.0 04:06 Intake and Output 09/13/18 09/13/18 09/14/18 1515:00 23:00 07:00 IntakeIntake Total 958 ml OutputOutput Total 1700 ml 250 ml BalanceBalance -1700 ml 708 ml Exam Free Text/Dictation Constitutional: alert, oriented ( x1-2; Forgetful), well developed, other Psych: nl mood/affect, anxiety (Minimal) Head: normocephalic, atraumatic Eyes: nl conjunctiva, EOMI, nl lids, nl sclera ENMT: nl external ears & nose, nl lips & teeth, mucosa pink and moist Neck: supple, non-tender; No jvd Respiratory: normal air movement; No congested cough, No labored breathing Cardiovascular: regular rate and rhythm, nl pulses Gastrointestinal: soft, non-tender, other (PEG), rectal tube (liquid stool) Genitourinary - Male: nl penis, nl scrotum Musculoskeletal: other (Muscle atrophy bilateral lower extremities); No nl extremities to inspection Extremities: normal pulses; No pitting pedal edema Neurological: nl speech; No nl strength (Generalized weakness) Skin: other (Sacral wound: Slough, minimal drainage, no odor, minimal periwound erythema); No rash or lesions Results Result Diagram: 09/12/18 0455 09/12/18 0455 AUSTEN WESTON NP Sep 14, 2018 10:31
--- NOTE | 2018-09-14 10:40 | CONS ---
Assessment/Plan Assessment/Plan Hospital Course (Demo Recall) No acute changes, looks comfortable, no fevers overnight Blood culture on admission grew MDR A.b. Wound culture growing E. coli multidrug-resistant Acinetobacter Pseudomonas and coag negative staph species Indwelling's: PEG Antimicrobials: IV Bactrim Meropenem PO Vanco Physical examination: Fragile elderly man who is in no distress. Head atraumatic normocephalic neck is supple chest rise symmetrical breath sounds diminished bases. Heart: S1-S2. Abdomen soft bowel sounds present. E xtremities without cyanosis. Skin: Patient has a large unstageable sacral wound Assessment: 1. MDR gram-negative zeinab bacteremia possibly secondary to urinary tract infection versus sacral decub vs pulmonary 2. Unstageable sacral decubitus ulcer 3. Urinary tract infection per urinalysis 4. Diarrhea/hx C. difficile colitis 5. History of MRSA endocarditis, treated 6. History of CVA with chronic encephalopathy 7. Dysphagia status post PEG 8. Atrial fibrillation status post RVR Plan: Remains stable, repeat bld cx neg, continue abx for 5 more days, pending consent for wound debridement Consultation Date/Type/Reason Admit Date/Time Aug 29, 2018 at 07:31 Initial Consult Date Type of Consult id Requesting Provider: SOTO SHERMAN Date/Time of Note DATE: 09/14/18 TIME: 10:39 Exam/Review of Systems Exam Vitals Vital Signs Date Temp Pulse Resp B/P (MAP) Pulse Ox O2 O2 Flow FiO2 Time Delivery Rate 09/14/18 Nasal 2.0 08:00 Cannula 09/14/18 97.8 74 24 131/71 100 07:26 (91) Intake and Output 09/13/18 09/13/18 09/14/18 1515:00 23:00 07:00 IntakeIntake Total 958 ml OutputOutput Total 1700 ml 250 ml BalanceBalance -1700 ml 708 ml Results Result Diagram: 09/12/18 0455 09/12/18 0455 Medications Medication Current Medications IV Flush (NS 3 ml) 3 ml PER PROTOCOL IV ; Start 08/28/18 at 00:00 Ondansetron HCl (Zofran Inj) 4 mg Q6H PRN IV NAUSEA/VOMITING; Start 08/28/18 at 00:00 Acetaminophen (Tylenol Tab) 650 mg Q6H PRN PO .PAIN 1-3 OR TEMP; Start 08/28/18 at 00:00 Amiodarone HCl (Cordarone) 200 mg BID PO Last administered on 09/14/18 08:41; Admin Dose 200 MG; Start 08/28/18 at 00:00 Ipratropium [place] (Atrovent 0.02% (Neb)) 0.5 mg Q6H RESP THERAPY PRN INH SHORTNESS OF BREATH; Start 08/28/18 at 00:00 Lansoprazole (Prevacid) 30 mg DAILY@0600 PO Last administered on 09/14/18 05:3 9; Admin Dose 30 MG; Start 08/28/18 at 06:00 Levalbuterol (Xopenex Hfa) 1 puff Q4H RESP THERAPY PRN INH WHEEZING AND SOB; Start 08/28/18 at 00:00 Miscellaneous Information (Pending Santyl Order For Wound Care) This patient dugan... PRN PRN XX WOUND CARE; Start 08/28/18 at 19:00 Multivitamins (Multivitamin) 30 ml DAILY GTB Last administered on 09/14/18 08:53; Admin Dose 30 ML; Start 08/30/18 at 09:00 Ascorbic Acid (Vitamin C) 500 mg DAILY GTB Last administered on 09/14/18 08:53; Admin Dose 500 MG; Start 08/30/18 at 09:00 Diltiazem HCl (Cardizem) 60 mg Q8 PO Last administered on 09/14/18 05:39; Admin Dose 60 MG; Start 08/31/18 at 22:00 Vancomycin HCl (Vancomycin Oral Syringe) 125 mg Q6 PO Last administered on 09/14/18 05:38; Admin Dose 125 MG; Start 09/01/18 at 18:00 Collagenase (Santyl) 1 applic DAILY TOP Last administered on 09/14/18 08:54; Admin Dose 1 APPLIC; Start 09/03/18 at 10:15 Heparin Sodium (Porcine) (Heparin (5000 Units/1ml)) 5,000 unit BID SC Last administered on 09/14/18 08:50; Admin Dose 5,000 UNIT; Start 09/04/18 at 21:00 Meropenem/Sodium Chloride 50 ml @ 100 mls/hr Q8 IVPB Last administered on 09/14/18 05:38; Admin Dose 100 MLS/HR; Start 09/04/18 at 14:00 Sodium Hypochlorite (Dakins Diluted ()) 1 applic DAILY TP Last administered on 09/14/18 08:54; Admin Dose 1 APPLIC; Start 09/05/18 at 14:30 Furosemide (Lasix) 20 mg DAILY NGT Last administered on 09/14/18 08:41; Admin Dose 20 MG; Start 09/06/18 at 09:00 Lactobacillus Acidophilus/ Rhamnosus (Culturelle) 1 cap BID PO Last administered on 09/14/18 08:40; Admin Dose 1 CAP; Start 09/09/18 at 12:30 Trimethoprim/ Sulfamethoxazole 15 ml/Dextrose 515 ml @ 343.333 mls/hr Q8 IVPB Last administered on 09/14/18 05:38; Admin Dose 343.333 MLS/HR; Start 09/09/18 at 17:00 SANDER WILL NP Sep 14, 2018 10:40
[2018-09-14 11:47] VITALS: BP 121/57; PULSE 93; RESP 26
--- NOTE | 2018-09-14 13:54 | QN ---
Documentation Comment Biomedical ethics committee Biomedical ethics committee met today at the request of the primary care team to review options for assisting in the treatment of this gentleman. Mr. Tierney is a 72-year-old male who does have biological children and siblings. Patient had stated to our foster care case manager/social worker palliative care that he wanted to defer decisions if possible to his brother. The foster care case managerbi manager workers and the medical team have reached out to the patient's family. His brother declines to be involved in making decisions for his medical care. In addition his offspring he declined to be involved in making decisions for his care. At this time he has a significant decubitus ulcer stage III that is acting as a source of infection which is causing him not only physical discomfort but medical risk. Since the patient presently lacks capacity to sign consent for this procedure, the biomedical ethics committee is asked to review about whether or not this was be appropriate to proceed. This is considered pending the biomedical ethics committee that proceeding for debridement of this decubitus ulcer would be in the patient's best interest ultimate leading to more comfort, and decreased risk of infection. Of note the medical team will rediscuss with the patient in simple terms and with pictures to explain the procedures that he has an idea of what it is that we are proposing. Please note however the patient still does not have capacity for making this decision at this time, and the appropriate biologically related decision-makers have declined to be involved in making a decision as opposed to having said no to the decision which is not the circumstance. Respectfully JAD Julien MD, MD Sep 14, 2018 13:54
[2018-09-14 15:26] VITALS: BP 134/59; PULSE 95; RESP 24
--- NOTE | 2018-09-14 15:31 | PN ---
Date/Time of Note Date/Time of Note DATE: 09/14/18 TIME: 15:06 Assessment/Plan VTE Prophylaxis Risk score (from Ns)>0 risk: 7 SCD applied (from Ns): Yes Pharmacological prophylaxis: heparin Lines/Catheters IV C[facility]ter Type [facility]from [facility] [place] Urinary Cath still in place: No Assessment/Plan Assessment/Plan 72-year-old male with atrial fibrillation, multifocal infarcts, dementia, chronic encephalopathy, psychosis/schizophrenia, MV endocarditis, dysphagia with G-tube who presents with: 1. Atrial fibrillation with RVR: rate controlled presently -Continue PO amiodarone and diltiazem -Follow-up further recommendations from cardiology team 2. Healthcare associated pneumonia: X-ray earlier this admission showed worsening consolidation -Follow-up ID recommendations, for now continue current antibiotics IV Bactrim and p.o. vancomycin 3. Bacteremia -patient found with MDR gram-negative zeinab bacteremia possibly secondary to urinary tract infection versus sacral decub vs pulmonary. Also, sacral decub ulcer wound swab is polymicrobial. This may be contributing to transient bacteremia. -Per ID team, continue for now on IV Bactrim, PO vanco. 4. Dysphagia with G-tube -For now continue tube feeds 5. History of recent MV endocarditis - s/p course of IV vancomycin, completed 08/27-monitor for now 6. Stage III sacral decub ulcer -For now continue current antibiotics -Surgical sacral decub ulcer debridement per Dr. Cherry. Per bioethics discussion (09/14/18), explicit consent is not required for this medically necessary procedure. Dispo: Surgical sacral decub ulcer debridement per Dr. Cherry. Per bioethics, explicit consent is not required for this medically necessary procedure. Result Diagram: 09/12/18 0455 09/12/18 0455 Subjective 24 Hr Interval Summary Free Text/Dictation No acute overnight events. On telemetry, patient's heart rate has remained below 100s for several days now. Had bioethics meeting today. The patient has no family who is agreeable to consent for him, including the patient's self-determined decisionmaker who is his brother Josr. So the consensus is that we will proceed with this medically necessary procedure UNLESS the patient is explicitly able to say no. On my repeat exam today, I explained the benefits and risks of the procedure to the patient, including general anesthesia. I asked if he was agreeable and he said "uh-huh". I clarified; saying "yes? You want the procedure?" And he repeated "uh huh". Exam/Review of Systems Exam Vitals Vital Signs Date Temp Pulse Resp B/P (MAP) Pulse Ox O2 O2 Flow FiO2 Time Delivery Rate 09/14/18 97.9 93 26 121/57 100 Nasal 11:47 (78) Cannula 09/14/18 2.0 08:00 Intake and Output 09/13/18 09/13/18 09/14/18 1515:00 23:00 07:00 IntakeIntake Total 958 ml OutputOutput Total 1700 ml 250 ml BalanceBalance -1700 ml 708 ml Exam General: Frail elderly man lying in bed. Head: Normocephalic, atraumatic. Eyes: Pupils equally reactive, EOM intact ENT: Moist mucous membranes Neck: Supple, no lymphadenopathy Respiratory: Slightly distant breath sounds bilaterally Cardiovascular: No rubs or gallops Abdominal: Soft, non-tender, non-distended, no peritoneal sign MSK: No lower extremity bilaterally. Severe leg muscle atrophy. Medications Medication Current Medications IV Flush (NS 3 ml) 3 ml PER PROTOCOL IV ; Start 08/28/18 at 00:00 Ondansetron HCl (Zofran Inj) 4 mg Q6H PRN IV NAUSEA/VOMITING; Start 08/28/18 at 00:00 Acetaminophen (Tylenol Tab) 650 mg Q6H PRN PO .PAIN 1-3 OR TEMP; Start 08/28/18 at 00:00 Amiodarone HCl (Cordarone) 200 mg BID PO Last administered on 09/14/18at 08:41; Admin Dose 200 MG; Start 08/28/18 at 00:00 Ipratropium [place] (Atrovent 0.02% (Neb)) 0.5 mg Q6H RESP THERAPY PRN INH SHORTNESS OF BREATH; Start 08/28/18 at 00:00 Lansoprazole (Prevacid) 30 mg DAILY@0600 PO Last administered on 09/14/18at 05:39; Admin Dose 30 MG; Start 08/28/18 at 06:00 Levalbuterol (Xopenex Hfa) 1 puff Q4H RESP THERAPY PRN INH WHEEZING AND SOB; Start 08/28/18 at 00:00 Miscellaneous Information (Pending Santyl Order For Wound Care) This patient dugan... PRN PRN XX WOUND CARE; Start 08/28/18 at 19:00 Multivitamins (Multivitamin) 30 ml DAILY GTB Last administered on 09/14/18 08:53; Admin Dose 30 ML; Start 08/30/18 at 09:00 Ascorbic Acid (Vitamin C) 500 mg DAILY GTB Last administered on 09/14/18 08:53; Admin Dose 500 MG; Start 08/30/18 at 09:00 Diltiazem HCl (Cardizem) 60 mg Q8 PO Last administered on 09/14/18 13:30; Admin Dose 60 MG; Start 08/31/18 at 22:00 Vancomycin HCl (Vancomycin Oral Syringe) 125 mg Q6 PO Last administered on 09/14/18 12:23; Admin Dose 125 MG; Start 09/01/18 at 18:00 Collagenase (Santyl) 1 applic DAILY TOP Last administered on 09/14/18 08:54; Admin Dose 1 APPLIC; Start 09/03/18 at 10:15 Heparin Sodium (Porcine) (Heparin (5000 Units/1ml)) 5,000 unit BID SC Last administered on 09/14/18 08:50; Admin Dose 5,000 UNIT; Start 09/04/18 at 21:00 Meropenem/Sodium Chloride 50 ml @ 100 mls/hr Q8 IVPB Last administered on 09/14/18 13:29; Admin Dose 100 MLS/HR; Start 09/04/18 at 14:00 Sodium Hypochlorite (Dakins Diluted (40)) 1 applic DAILY TP Last administered on 09/14/18 08:54; Admin Dose 1 APPLIC; Start 09/05/18 at 14:30 Furosemide (Lasix) 20 mg DAILY NGT Last administered on 09/14/18 08:41; Admin Dose 20 MG; Start 09/06/18 at 09:00 Lactobacillus Acidophilus/ Rhamnosus (Culturelle) 1 cap BID PO Last administered on 09/14/18 08:40; Admin Dose 1 CAP; Start 09/09/18 at 12:30 Trimethoprim/ Sulfamethoxazole 15 ml/Dextrose 515 ml @ 343.333 mls/hr Q8 IVPB Last administered on 09/14/18 14:48; Admin Dose 343.333 MLS/HR; Start 09/09/18 at 17:00 RACIEL HUMPHREY MD Sep 14, 2018 15:26
--- NOTE | 2018-09-14 17:18 | CONS ---
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 Encephalopathy CVA, hemorrhagic History of nonsustained ventricular tachycardia Continue Cardizem and titrate as needed Antibiotics as per infectious disease Lasix as needed Consultation Date/Type/Reason Admit Date/Time Aug 29, 2018 at 07:31 Initial Consult Date Type of Consult Cardiology Requesting Provider: SOTO SHERMAN Date/Time of Note DATE: 09/14/18 TIME: 17:17 24 HR Interval Summary Free Text/Dictation pt seen and examined Exam/Review of Systems Vital Signs Vitals Vital Signs Date Temp Pulse Resp B/P (MAP) Pulse Ox O2 O2 Flow FiO2 Time Delivery Rate 09/14/18 97.7 95 24 134/59 100 Nasal 15:26 (84) Cannula 09/14/18 2.0 08:00 Intake and Output 09/13/18 09/13/18 09/14/18 1414:59 22:59 06:59 IntakeIntake Total 958 ml OutputOutput Total 1700 ml 250 ml BalanceBalance -1700 ml 708 ml Exam Constitutional: alert (nad) Head: normocephalic Respiratory: other (course bs, no wheeze) Cardiovascular: irregular rhythm (s1s2) Gastrointestinal: soft, non-tender, bowel sounds Extremities: edema (no) Labs Result Diagram: 09/12/185 09/12/185 Medications Medications Current Medications IV Flush (NS 3 ml) 3 ml PER PROTOCOL IV ; Start 08/28/18 at 00:00 Ondansetron HCl (Zofran Inj) 4 mg Q6H PRN IV NAUSEA/VOMITING; Start 08/28/18 at 00:00 Acetaminophen (Tylenol Tab) 650 mg Q6H PRN PO .PAIN 1-3 OR TEMP; Start 08/28/18 at 00:00 Amiodarone HCl (Cordarone) 200 mg BID PO Last administered on 09/14/18at 08:41; Admin Dose 200 MG; Start 08/28/18 at 00:00 Ipratropium [place] (Atrovent 0.02% (Neb)) 0.5 mg Q6H RESP THERAPY PRN INH SHOR TNESS OF BREATH; Start 08/28/18 at 00:00 Lansoprazole (Prevacid) 30 mg DAILY@0600 PO Last administered on 09/14/18 05:39; Admin Dose 30 MG; Start 08/28/18 at 06:00 Levalbuterol (Xopenex Hfa) 1 puff Q4H RESP THERAPY PRN INH WHEEZING AND SOB; Start 08/28/18 at 00:00 Miscellaneous Information (Pending Santyl Order For Wound Care) This patient dugan... PRN PRN XX WOUND CARE; Start 08/28/18 at 19:00 Multivitamins (Multivitamin) 30 ml DAILY GTB Last administered on 09/14/18 08:53; Admin Dose 30 ML; Start 08/30/18 at 09:00 Ascorbic Acid (Vitamin C) 500 mg DAILY GTB Last administered on 09/14/18 08:53 ; Admin Dose 500 MG; Start 08/30/18 at 09:00 Diltiazem HCl (Cardizem) 60 mg Q8 PO Last administered on 09/14/18 13:30; Admin Dose 60 MG; Start 08/31/18 at 22:00 Vancomycin HCl (Vancomycin Oral Syringe) 125 mg Q6 PO Last administered on 09/14/18 12:23; Admin Dose 125 MG; Start 09/01/18 at 18:00 Collagenase (Santyl) 1 applic DAILY TOP Last administered on 09/14/18 08:54; Admin Dose 1 APPLIC; Start 09/03/18 at 10:15 Heparin Sodium (Porcine) (Heparin (5000 Units/1ml)) 5,000 unit BID SC Last a dministered on 09/14/18 08:50; Admin Dose 5,000 UNIT; Start 09/04/18 at 21:00 Meropenem/Sodium Chloride 50 ml @ 100 mls/hr Q8 IVPB Last administered on 09/14/18 13:29; Admin Dose 100 MLS/HR; Start 09/04/18 at 14:00 Sodium Hypochlorite (Dakins Diluted ()) 1 applic DAILY TP Last administered on 09/14/18 08:54; Admin Dose 1 APPLIC; Start 09/05/18 at 14:30 Furosemide (Lasix) 20 mg DAILY NGT Last administered on 09/14/18 08:41; Admin Dose 20 MG; Start 09/06/18 at 09:00 Lactobacillus Acidophilus/ Rhamnosus (Culturelle) 1 cap BID PO Last administered on 09/14/18at 08:40; Admin Dose 1 CAP; Start 09/09/18 at 12:30 Trimethoprim/ Sulfamethoxazole 15 ml/Dextrose 515 ml @ 343.333 mls/hr Q8 IVPB Last administered on 09/14/18at 14:48; Admin Dose 343.333 MLS/HR; Start 09/09/18 at 17:00 Charan Cottrell DO Sep 14, 2018 17:18
[2018-09-14 20:07] VITALS: BP 135/61; PULSE 89; RESP 22
[2018-09-15] VITALS (7 sets, daily range): BP systolic 96–136; BP diastolic 53–79; PULSE 80–94; RESP 18–20
[2018-09-15] MEDS: DILTIAZEM 30 MG TAB PO SCH ×3 (05:09→21:45)
[2018-09-15] MEDS: MEROPENEM 1 GM/50ML(PMX) 50 ML IVPB SCH ×3 (05:09→21:43)
[2018-09-15] MEDS: LANSOPRAZOLE 30 MG CAP PO SCH (05:10)
[2018-09-15] MEDS: VANCOMYCIN HCL 250 MG/5ML POSYG PO SCH ×4 (05:10→23:42)
[2018-09-15] MEDS: TRIMETHOPRIM/SULFAMETHOXAZOLE 15 ML in DEXTROSE 5% 500 ML IVPB SCH ×3 (05:32→22:30)
[2018-09-15] MEDS: HEPARIN 5,000 UNIT/1 ML VIAL SC SCH ×2 (09:00→20:58)
[2018-09-15] MEDS ORDERED: LIDOCAINE 2% (MDV) 20 ML INJ INJ ONE (09:30)
[2018-09-15] MEDS ORDERED: SILVER NITRATE SWAB TOP ONE (09:30)
[2018-09-15] MEDS: LACTOBACILLUS RHAMNOSUS CAP PO SCH ×2 (09:44→20:46)
[2018-09-15] MEDS: MULTIVITAMINS 30 ML CUP GTB SCH (09:44)
[2018-09-15] MEDS: FUROSEMIDE 20 MG TAB NGT SCH (09:45)
[2018-09-15] MEDS: AMIODARONE 200 MG TAB PO SCH ×2 (09:50→20:46)
[2018-09-15] MEDS: COLLAGENASE 5 GM (UD JAR) TOP SCH (09:50)
[2018-09-15] MEDS: DAKINS 0.0125%(1/40) 473 ML SOLUTION TP SCH (09:51)
[2018-09-15] MEDS: BALSAM PERU/CASTOR OIL 60 GM TUBE TOP SCH ×2 (09:51→21:43)
[2018-09-15] MEDS: ASCORBIC ACID 500 MG TAB GTB SCH (09:55)
--- NOTE | 2018-09-15 11:08 | CONS ---
Assessment/Plan Assessment/Plan Hospital Course (Demo Recall) No acute changes, looks comfortable, no fevers overnight Blood culture on admission grew MDR A.b. Wound culture growing E. coli multidrug-resistant Acinetobacter Pseudomonas and coag negative staph species Indwelling's: PEG Antimicrobials: IV Bactrim Meropenem PO Vanco Physical examination: Fragile elderly man who is in no distress. Head atraumatic normocephalic neck is supple chest rise symmetrical breath sounds diminished bases. Heart: S1-S2. Abdomen soft bowel sounds present. E xtremities without cyanosis. Skin: Patient has a large unstageable sacral wound Assessment: 1. MDR gram-negative zeinab bacteremia possibly secondary to urinary tract infection versus sacral decub vs pulmonary 2. Unstageable sacral decubitus ulcer 3. Urinary tract infection per urinalysis 4. Diarrhea/hx C. difficile colitis 5. History of MRSA endocarditis, treated 6. History of CVA with chronic encephalopathy 7. Dysphagia status post PEG 8. Atrial fibrillation status post RVR Plan: Remains stable, pending sacral wound debridement, pt is completing abx for bacteremia and unless he has OM will keep on abx for 4 more days Consultation Date/Type/Reason Admit Date/Time Aug 29, 2018 at 07:31 Initial Consult Date Type of Consult id Requesting Provider: SOTO SHERMAN Date/Time of Note DATE: 09/15/18 TIME: 11:07 Exam/Review of Systems Exam Vitals Vital Signs Date Temp Pulse Resp B/P (MAP) Pulse Ox O2 O2 Flow FiO2 Time Delivery Rate 09/15/18 98.0 84 18 124/57 97 Nasal 11:03 (79) Cannula 09/15/18 2.0 08:00 Intake and Output 09/14/18 09/14/18 09/15/18 1414:59 22:59 06:59 IntakeIntake Total 1830 ml OutputOutput Total 1100 ml 1100 ml BalanceBalance -1100 ml 730 ml Results Result Diagram: 09/15/1804 09/15/18 0904 Results 24hrs Laboratory Tests Test 09/15/18 09:04 White Blood Count 7.1 Red Blood Count 3.40 L Hemoglobin 9.5 L Hematocrit 30.9 L Mean Corpuscular Volume 90.9 Mean Corpuscular Hemoglobin 27.9 L Mean Corpuscular Hemoglobin Concent 30.7 L Red Cell Distribution Width 17.0 H Platelet Count 312 Mean Platelet Volume 9.6 Immature Granulocytes % 1.000 H Neutrophils % 80.2 H Lymphocytes % 8.1 L Monocytes % 7.6 Eosinophils % 2.7 Basophils % 0.4 Nucleated Red Blood Cells % 0.0 Immature Granulocytes # 0.070 H Neutrophils # 5.7 Lymphocytes # 0.6 L Monocytes # 0.5 Eosinophils # 0.2 Basophils # 0.0 Nucleated Red Blood Cells # 0.0 Sodium Level 131 L Potassium Level 4.6 Chloride Level 96 L Carbon Dioxide Level 27 Anion Gap 8 Blood Urea Nitrogen 22 H Creatinine 0.78 Est Glomerular Filtrat Rate mL/min > 60 Glucose Level 114 Calcium Level 9.3 Phosphorus Level 3.8 Magnesium Level 2.1 Total Bilirubin 0.4 Direct Bilirubin 0.00 Indirect Bilirubin 0.4 Aspartate Amino Transf (AST/SGOT) 20 Alanine Aminotransferase (ALT/SGPT) 26 Alkaline Phosphatase 156 H Total Protein 7.3 Albumin 3.3 Globulin 4.00 H Albumin/Globulin Ratio 0.82 Medications Medication Current Medications IV Flush (NS 3 ml) 3 ml PER PROTOCOL IV ; Start 08/28/18 at 00:00 Ondansetron HCl (Zofran Inj) 4 mg Q6H PRN IV NAUSEA/VOMITING; Start 08/28/18 at 00:00 Acetaminophen (Tylenol Tab) 650 mg Q6H PRN PO .PAIN 1-3 OR TEMP; Start 08/28/18 at 00:00 Amiodarone HCl (Cordarone) 200 mg BID PO Last administered on 09/15/18at 09:50; Admin Dose 200 MG; Start 08/28/18 at 00:00 Ipratropium [place] (Atrovent 0.02% (Neb)) 0.5 mg Q6H RESP THERAPY PRN INH SHORTNESS OF BREATH; Start 08/28/18 at 00:00 Lansoprazole (Prevacid) 30 mg DAILY@0600 PO Last administered on 09/15/18at 05:10; Admin Dose 30 MG; Start 08/28/18 at 06:00 Levalbuterol (Xopenex Hfa) 1 puff Q4H RESP THERAPY PRN INH WHEEZING AND SOB; S tart 08/28/18 at 00:00 [facility] This patient dugan ... PRN PRN XX WOUND CARE; Start 08/28/18 at 19:00 Multivitamins (Multivitamin) 30 ml DAILY GTB Last administered on 09/15/18 09:44; Admin Dose 30 ML; Start 08/30/18 at 09:00 Ascorbic Acid (Vitamin C) 500 mg DAILY GTB Last administered on 09/15/18 09:55; Admin Dose 500 MG; Start 08/30/18 at 09:00 Diltiazem HCl (Cardizem) 60 mg Q8 PO Last administered on 09/15/18 05:09; Admin Dose 60 MG; Start 08/31/18 at 22:00 Vancomycin HCl (Vancomycin Oral Syringe) 125 mg Q6 PO Last administered on 09/15/18 05:10; Admin Dose 125 MG; Start 09/01/18 at 18:00 Collagenase (Santyl) 1 applic DAILY TOP Last administered on 09/15/18 09:50; Admin Dose 1 APPLIC; Start 09/03/18 at 10:15 Heparin Sodium (Porcine) (Heparin (5000 Units/1ml)) 5,000 unit BID SC Last administered on 09/14/18 21:44; Admin Dose 5,000 UNIT; Start 09/04/18 at 21:00 Meropenem/Sodium Chloride 50 ml @ 100 mls/hr Q8 IVPB Last administered on 09/15/18 05:09; Admin Dose 100 MLS/HR; Start 09/04/18 at 14:00 Sodium Hypochlorite (Dakins Diluted (1/40)) 1 applic DAILY TP Last administered on 09/15/18 09:51; Admin Dose 1 APPLIC; Start 09/05/18 at 14:30 Furosemide (Lasix) 20 mg DAILY NGT Last administered on 09/15/18 09:45; Admin Dose 20 MG; Start 09/06/18 at 09:00 Lactobacillus Acidophilus/ Rhamnosus (Culturelle) 1 cap BID PO Last administered on 09/15/18 09:44; Admin Dose 1 CAP; Start 09/09/18 at 12:30 Trimethoprim/ Sulfamethoxazole 15 ml/Dextrose 515 ml @ 343.333 mls/hr Q8 IVPB Last administered on 09/15/18 05:32; Admin Dose 343.333 MLS/HR; Start 09/09/18 at 17:00 SANDER WILL NP Sep 15, 2018 11:08
--- NOTE | 2018-09-15 11:55 | PN ---
Date/Time of Note Date/Time of Note DATE: 09/15/18 TIME: 11:54 Assessment/Plan VTE Prophylaxis Risk score (from [facility] [place]0 risk: 6 SCD applied (from [facility] [place]): Yes Pharmacological prophylaxis: NA/contraindicated Pharm contraindication: surgical contra Lines/Catheters IV Catheter Type (from [facility]): Saline Lock Urinary Cath still in place: No Assessment/Plan Assessment/Plan 72-year-old male with atrial fibrillation, multifocal infarcts, dementia, chronic encephalopathy, psychosis/schizophrenia, MV endocarditis, dysphagia with G-tube who presents with: 1. Atrial fibrillation with RVR: rate controlled presently -Continue PO amiodarone and diltiazem -Follow-up further recommendations from cardiology team 2. Healthcare associated pneumonia: X-ray earlier this admission showed worsening consolidation -Follow-up ID recommendations, for now continue current antibiotics IV Bactrim and p.o. vancomycin 3. Bacteremia -patient found with MDR gram-negative zeinab bacteremia possibly secondary to urinary tract infection versus sacral decub vs pulmonary. Also, sacral decub ulcer wound swab is polymicrobial. This may be contributing to transient bacteremia. -Per ID team, continue for now on IV Bactrim, PO vanco. 4. Dysphagia with G-tube -For now continue tube feeds 5. History of recent MV endocarditis - s/p course of IV vancomycin, completed 08/27-monitor for now 6. Stage III sacral decub ulcer -For now continue current antibiotics -Surgical sacral decub ulcer debridement per Dr. Cherry. Per bioethics discussion (09/14/18), explicit consent is not required for this medically necessary procedure. Dispo: Surgical sacral decub ulcer debridement per Dr. Cherry. Per bioethics, explicit consent is not required for this medically necessary procedure. Result Diagram: 09/15/18 0904 09/15/18 0904 Subjective 24 Hr Interval Summary Free Text/Dictation No acute overnight events. Exam/Review of Systems Exam Vitals Vital Signs Date Temp Pulse Resp B/P (MAP) Pulse Ox O2 O2 Flow FiO2 Time Delivery Rate 09/15/18 98.0 84 18 124/57 97 Nasal 11:03 (79) Cannula 09/15/18 2.0 08:00 Intake and Output 09/14/18 09/14/18 09/15/18 1515:00 23:00 07:00 IntakeIntake Total 1830 ml OutputOutput Total 1100 ml 1100 ml BalanceBalance -1100 ml 730 ml Exam General: Frail elderly man lying in bed. Head: Normocephalic, atraumatic. Eyes: Pupils equally reactive, EOM intact ENT: Moist mucous membranes Neck: Supple, no lymphadenopathy Respiratory: Slightly distant breath sounds bilaterally Cardiovascular: No rubs or gallops Abdominal: Soft, non-tender, non-distended, no peritoneal sign MSK: No lower extremity bilaterally. Severe leg muscle atrophy. Results Results 24hrs Laboratory Tests Test 09/15/18 09:04 White Blood Count 7.1 Red Blood Count 3.40 L Hemoglobin 9.5 L Hematocrit 30.9 L Mean Corpuscular Volume 90.9 Mean Corpuscular Hemoglobin 27.9 L Mean Corpuscular Hemoglobin Concent 30.7 L Red Cell Distribution Width 17.0 H Platelet Count 312 Mean Platelet Volume 9.6 Immature Granulocytes % 1.000 H Neutrophils % 80.2 H Lymphocytes % 8.1 L Monocytes % 7.6 Eosinophils % 2.7 Basophils % 0.4 Nucleated Red Blood Cells % 0.0 Immature Granulocytes # 0.070 H Neutrophils # 5.7 Lymphocytes # 0.6 L Monocytes # 0.5 Eosinophils # 0.2 Basophils # 0.0 Nucleated Red Blood Cells # 0.0 Sodium Level 131 L Potassium Level 4.6 Chloride Level 96 L Carbon Dioxide Level 27 Anion Gap 8 Blood Urea Nitrogen 22 H Creatinine 0.78 Est Glomerular Filtrat Rate mL/min > 60 Glucose Level 114 Calcium Level 9.3 Phosphorus Level 3.8 Magnesium Level 2.1 Total Bilirubin 0.4 Direct Bilirubin 0.00 Indirect Bilirubin 0.4 Aspartate Amino Transf (AST/SGOT) 20 Alanine Aminotransferase (ALT/SGPT) 26 Alkaline Phosphatase 156 H Total Protein 7.3 Albumin 3.3 Globulin 4.00 H Albumin/Globulin Ratio 0.82 Medications Medication Current Medications IV Flush (NS 3 ml) 3 ml PER PROTOCOL IV ; Start 08/28/18 at 00:00 Ondansetron HCl (Zofran Inj) 4 mg Q6H PRN IV NAUSEA/VOMITING; Start 08/28/18 at 00:00 Acetaminophen (Tylenol Tab) 650 mg Q6H PRN PO .PAIN 1-3 OR TEMP; Start 08/28/18 at 00:00 Amiodarone HCl (Cordarone) 200 mg BID PO Last administered on 09/15/18 09:50; Admin Dose 200 MG; Start 08/28/18 at 00:00 Ipratropium [place] (Atrovent 0.02% (Neb)) 0.5 mg Q6H RESP THERAPY PRN INH SHORTNESS OF BREATH; Start 08/28/18 at 00:00 Lansoprazole (Prevacid) 30 mg DAILY@0600 PO Last administered on 09/15/18 05:10; Admin Dose 30 MG; Start 08/28/18 at 06:00 Levalbuterol (Xopenex Hfa) 1 puff Q4H RESP THERAPY PRN INH WHEEZING AND SOB; Start 08/28/18 at 00:00 Miscellaneous Information (Pending Santyl Order For Wound Care) This patient dugan... PRN PRN XX WOUND CARE; Start 08/28/18 at 19:00 Multivitamins (Multivitamin) 30 ml DAILY GTB Last administered on 09/15/18 09:44; Admin Dose 30 ML; Start 08/30/18 at 09:00 Ascorbic Acid (Vitamin C) 500 mg DAILY GTB Last administered on 09/15/18 09:55; Admin Dose 500 MG; Start 08/30/18 at 09:00 Diltiazem HCl (Cardizem) 60 mg Q8 PO Last administered on 09/15/18 05:09; Admin Dose 60 MG; Start 08/31/18 at 22:00 Vancomycin HCl (Vancomycin Oral Syringe) 125 mg Q6 PO Last administered on 05:10; Admin Dose 125 MG; Start 09/01/18 at 18:00 Collagenase (Santyl) 1 applic DAILY TOP Last administered on 09/15/18 09:50; Admin Dose 1 APPLIC; Start 09/03/18 at 10:15 Heparin Sodium (Porcine) (Heparin (5000 Units/1ml)) 5,000 unit BID SC Last administered on 09/14/18 21:44; Admin Dose 5,000 UNIT; Start 09/04/18 at 21:00 Meropenem/Sodium Chloride 50 ml @ 100 mls/hr Q8 IVPB Last administered on 09/15/18 05:09; Admin Dose 100 MLS/HR; Start 09/04/18 at 14:00 Sodium Hypochlorite (Dakins Diluted (1/40)) 1 applic DAILY TP Last administered on 09/15/18 09:51; Admin Dose 1 APPLIC; Start 09/05/18 at 14:30 Furosemide (Lasix) 20 mg DAILY NGT Last administered on 09/15/18 09:45; Admin Dose 20 MG; Start 09/06/18 at 09:00 Lactobacillus Acidophilus/ Rhamnosus (Culturelle) 1 cap BID PO Last administered on 09/15/18 09:44; Admin Dose 1 CAP; Start 09/09/18 at 12:30 Trimethoprim/ Sulfamethoxazole 15 ml/Dextrose 515 ml @ 343.333 mls/hr Q8 IVPB Last administered on 09/15/18 05:32; Admin Dose 343.333 MLS/HR; Start 09/09/18 at 17:00 RACIEL HUMPHREY MD Sep 15, 2018 11:55
--- NOTE | 2018-09-15 14:42 | PN ---
Date/Time of Note Date/Time of Note DATE: 09/15/18 TIME: 14:32 Assessment/Plan Lines/Catheters IV Catheter Type (from Nrs): Saline Lock Jimenez in Place (from Nrs): No Assessment/Plan Chief Complaint/Hosp Course 1. Sacral wound:+ Wound cultures -debridement today (sp bioethics meeting) -continue local care -frequent turning and off-loading -low air loss mattress -vitamin c -short term zinc -optimize nutrition 2. Bacteremia: Repeat BC NGTD -Antibiotics per sensitivity> per ID -Follow cultures 3. Atrial fibrillation: controlled/uncontrolled rate -Rate control and anticoagulation per cards 4. UTI: -abx per sensitivity -frequent bladder emptying/cath care 5. Pneumonia with small bilateral pleural effusions -Pulmonary toilet -Antibiotics -Fluid management 6. Malnutrition: -Optimize nutrition 7. Dysphagia status post PEG -Tube feeds with aspiration precautions 8. Diastolic CHF with c preserved EF, history of MV endocarditis status post antibiotics -Per cardiology -Cardiac optimization 9. Liquid stools -stool studies if persistent Thank you. Patient seen and examined in collaboration with Dr. Serge Cherry. Subjective 24 Hr Interval Summary Pending wound debridement. No fevers, labored breathing, congested cough, vomting, diarrhea, sz, rash. Appears comfortable. Nonverbal indicators of pain not present. Exam/Review of Systems Vital Signs Vitals Vital Signs Date Temp Pulse Resp B/P (MAP) Pulse Ox O2 O2 Flow FiO2 Time Delivery Rate 09/15/18 98.0 84 18 124/57 97 Nasal 11:03 (79) Cannula 09/15/18 2.0 08:00 Intake and Output 09/14/18 09/14/18 09/15/18 1515:00 23:00 07:00 IntakeIntake Total 1830 ml OutputOutput Total 1100 ml 1100 ml BalanceBalance -1100 ml 730 ml Exam Free Text/Dictation Constitutional: alert, oriented ( x1-2; Forgetful), well developed, other Psych: nl mood/affect, anxiety (Minimal) Head: normocephalic, atraumatic Eyes: nl conjunctiva, EOMI, nl lids, nl sclera ENMT: nl external ears & nose, nl lips & teeth, mucosa pink and moist Neck: supple, non-tender; No jvd Respiratory: normal air movement; No congested cough, No labored breathing Cardiovascular: regular rate and rhythm, nl pulses Gastrointestinal: soft, non-tender, other (PEG), rectal tube (liquid stool) Genitourinary - Male: nl penis, nl scrotum Musculoskeletal: other (Muscle atrophy bilateral lower extremities); No nl extremities to inspection Extremities: normal pulses; No pitting pedal edema Neurological: nl speech; No nl strength (Generalized weakness) Skin: other (Sacral wound: Slough, minimal drainage, no odor, minimal periwound erythema); No rash or lesions Results Result Diagram: 09/15/18 0904 09/15/18 0904 AUSTEN WESTON NP Sep 15, 2018 14:42
--- NOTE | 2018-09-15 16:32 | CONS ---
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 Encephalopathy CVA, hemorrhagic History of nonsustained ventricular tachycardia Continue Cardizem and titrate as needed Antibiotics as per infectious disease Lasix as needed Consultation Date/Type/Reason Admit Date/Time Aug 29, 2018 at 07:31 Initial Consult Date Type of Consult Cardiology Requesting Provider: SOTO SHERMAN Date/Time of Note DATE: 09/15/18 TIME: 16:31 24 HR Interval Summary Free Text/Dictation Patient seen and examined Exam/Review of Systems Vital Signs Vitals Vital Signs Date Temp Pulse Resp B/P (MAP) Pulse Ox O2 O2 Flow FiO2 Time Delivery Rate 09/15/18 98.8 91 18 136/79 95 Nasal 15:05 (98) Cannula 09/15/18 2.0 08:00 Intake and Output 09/14/18 09/14/18 09/15/18 1515:00 23:00 07:00 IntakeIntake Total 1830 ml OutputOutput Total 1100 ml 1100 ml BalanceBalance -1100 ml 730 ml Exam Exam Sleeping, no apparent distress Head: normocephalic Respiratory: other (Coarse breath sounds bilaterally, no wheezing) Cardiovascular: irregular rhythm (S1-S2 heard) Gastrointestinal: soft, non-tender, bowel sounds Extremities: other (No significant edema) Labs Result Diagram: 09/15/1890309/15/1804 Results 24hrs Laboratory Tests Test 09/15/18 09:04 White Blood Count 7.1 Red Blood Count 3.40 L Hemoglobin 9.5 L Hematocrit 30.9 L Mean Corpuscular Volume 90.9 Mean Corpuscular Hemoglobin 27.9 L Mean Corpuscular Hemoglobin Concent 30.7 L Red Cell Distribution Width 17.0 H Platelet Count 312 Mean Platelet Volume 9.6 Immature Granulocytes % 1.000 H Neutrophils % 80.2 H Lymphocytes % 8.1 L Monocytes % 7.6 Eosinophils % 2.7 Basophils % 0.4 Nucleated Red Blood Cells % 0.0 Immature Granulocytes # 0.070 H Neutrophils # 5.7 Lymphocytes # 0.6 L Monocytes # 0.5 Eosinophils # 0.2 Basophils # 0.0 Nucleated Red Blood Cells # 0.0 Sodium Level 131 L Potassium Level 4.6 Chloride Level 96 L Carbon Dioxide Level 27 Anion Gap 8 Blood Urea Nitrogen 22 H Creatinine 0.78 Est Glomerular Filtrat Rate mL/min > 60 Glucose Level 114 Calcium Level 9.3 Phosphorus Level 3.8 Magnesium Level 2.1 Total Bilirubin 0.4 Direct Bilirubin 0.00 Indirect Bilirubin 0.4 Aspartate Amino Transf (AST/SGOT) 20 Alanine Aminotransferase (ALT/SGPT) 26 Alkaline Phosphatase 156 H Total Protein 7.3 Albumin 3.3 Globulin 4.00 H Albumin/Globulin Ratio 0.82 Medications Medications Current Medications IV Flush (NS 3 ml) 3 ml PER PROTOCOL IV ; Start 08/28/18 at 00:00 Ondansetron HCl (Zofran Inj) 4 mg Q6H PRN IV NAUSEA/VOMITING; Start 08/28/18 at 00:00 Acetaminophen (Tylenol Tab) 650 mg Q6H PRN PO .PAIN 1-3 OR TEMP; Start 08/28/18 at 00:00 Amiodarone HCl (Cordarone) 200 mg BID PO Last administered on 09/15/18at 09:50; Admin Dose 200 MG; Start 08/28/18 at 00:00 Ipratropium [place] (Atrovent 0.02% (Neb)) 0.5 mg Q6H RESP THERAPY PRN INH TERRY RTNESS OF BREATH; Start 08/28/18 at 00:00 Lansoprazole (Prevacid) 30 mg DAILY@0600 PO Last administered on 09/15/18at 05:10; Admin Dose 30 MG; Start 08/28/18 at 06:00 Levalbuterol (Xopenex Hfa) 1 puff Q4H RESP THERAPY PRN INH WHEEZING AND SOB; Start 08/28/18 at 00:00 Miscellaneous Information (Pending Santyl Order For Wound Care) This patient dugan... PRN PRN XX WOUND CARE; Start 08/28/18 at 19:00 Multivitamins (Multivitamin) 30 ml DAILY GTB Last administered on 09/15/18at 09:44; Admin Dose 30 ML; Start 08/30/18 at 09:00 Ascorbic Acid (Vitamin C) 500 mg DAILY GTB Last administered on 09/15/18at 09:5 5; Admin Dose 500 MG; Start 08/30/18 at 09:00 Diltiazem HCl (Cardizem) 60 mg Q8 PO Last administered on 09/15/18 14:29; Admin Dose 60 MG; Start 08/31/18 at 22:00 Vancomycin HCl (Vancomycin Oral Syringe) 125 mg Q6 PO Last administered on 09/15/18 12:31; Admin Dose 125 MG; Start 09/01/18 at 18:00 Collagenase (Santyl) 1 applic DAILY TOP Last administered on 09/15/18 09:50; Admin Dose 1 APPLIC; Start 09/03/18 at 10:15 Heparin Sodium (Porcine) (Heparin (5000 Units/1ml)) 5,000 unit BID SC Last administered on 09/14/18 21:44; Admin Dose 5,000 UNIT; Start 09/04/18 at 21:00 Meropenem/Sodium Chloride 50 ml @ 100 mls/hr Q8 IVPB Last administered on 09/15/18 14:28; Admin Dose 100 MLS/HR; Start 09/04/18 at 14:00 Sodium Hypochlorite (Dakins Diluted (/40)) 1 applic DAILY TP Last administered on 09/15/18 09:51; Admin Dose 1 APPLIC; Start 09/05/18 at 14:30 Furosemide (Lasix) 20 mg DAILY NGT Last administered on 09/15/18 09:45; Admin Dose 20 MG; Start 09/06/18 at 09:00 Lactobacillus Acidophilus/ Rhamnosus (Culturelle) 1 cap BID PO Last administered on 09/15/18 09:44; Admin Dose 1 CAP; Start 09/09/18 at 12:30 Trimethoprim/ Sulfamethoxazole 15 ml/Dextrose 515 ml @ 343.333 mls/hr Q8 IVPB Last administered on 09/15/18 14:27; Admin Dose 343.333 MLS/HR; Start 09/09/18 at 17:00 Charan Cottrell DO Sep 15, 2018 16:32
--- NOTE | 2018-09-15 16:41 | OPR ---
Date/Time of Note Date/Time of Note DATE: 09/15/18 TIME: 16:37 Operative Report Procedure Date: Sep 15, 2018 Preoperative Diagnosis Sacral stage IV decubitus pressure ulcer with necrotic debris, 7 x 5 cm Postoperative Diagnosis Same Operation/Procedure Performed Excisional debridement of sacral skin, subcu, fascia/muscle. 7 x 5 cm Surgeon Angie Gordon MD Technical Staff Assistant Alison Jacobsen, BETTY Anesthesia Type: other (Topical) Estimated Blood Loss: 0 - 10 ml's Transfusion none Specimen None Grafts/Implants none Tubes/Drains None Complications none Pt Condition Post Procedure: stable Disposition: other (Patient own room) Indications Per notes. Risks, benefits, alternatives as usual and customary. No one available for consent. Bioethics committee met and recommended for us to proceed with surgery. Since patient has necrotic tissue to prevent infection and sepsis and ultimate we will proceed with debridement to reduce those chances. Procedure Description Patient was placed in lateral decubitus position. All pressure points were well- padded. Timeout was performed. He was prepped and draped in usual sterile fashion. Using scalpel and curette, skin, subcutaneous, and fascia/muscle were excised down to healthier tissue. Hemostasis was obtained. Wound was irrigated and packed with soaked dressing. Dry dressing was applied. Patient was placed back supine. All counts were correct at the end of the operation 2. He tolerated procedure well. ANGIE GORDON MD Sep 15, 2018 16:41
[2018-09-16] VITALS: BP 94/54; PULSE 67; RESP 18
[2018-09-16 04:00] VITALS: BP 94/52; PULSE 85; RESP 18
[2018-09-16] MEDS: DILTIAZEM 30 MG TAB PO SCH ×3 (05:39→22:00)
[2018-09-16] MEDS: LANSOPRAZOLE 30 MG CAP PO SCH (05:40)
[2018-09-16] MEDS: MEROPENEM 1 GM/50ML(PMX) 50 ML IVPB SCH ×3 (05:40→21:23)
[2018-09-16] MEDS: VANCOMYCIN HCL 250 MG/5ML POSYG PO SCH ×3 (05:40→18:15)
[2018-09-16 08:03] VITALS: BP 98/58; PULSE 76; RESP 15
[2018-09-16] MEDS: FUROSEMIDE 20 MG TAB NGT SCH (09:07)
[2018-09-16] MEDS: AMIODARONE 200 MG TAB PO SCH ×2 (09:07→20:49)
[2018-09-16] MEDS: COLLAGENASE 5 GM (UD JAR) TOP SCH (09:08)
[2018-09-16] MEDS: ASCORBIC ACID 500 MG TAB GTB SCH (09:08)
[2018-09-16] MEDS: LACTOBACILLUS RHAMNOSUS CAP PO SCH ×2 (09:08→20:49)
[2018-09-16] MEDS: MULTIVITAMINS 30 ML CUP GTB SCH (09:08)
[2018-09-16] MEDS: BALSAM PERU/CASTOR OIL 60 GM TUBE TOP SCH ×2 (09:09→20:50)
[2018-09-16] MEDS: DAKINS 0.0125%(1/40) 473 ML SOLUTION TP SCH (09:09)
[2018-09-16] MEDS: HEPARIN 5,000 UNIT/1 ML VIAL SC SCH ×2 (09:58→21:49)
--- NOTE | 2018-09-16 11:35 | CONS ---
Assessment/Plan Assessment/Plan Hospital Course (Demo Recall) No acute changes, looks comfortable, no fevers overnight Blood culture on admission grew MDR A.b. Wound culture growing E. coli multidrug-resistant Acinetobacter Pseudomonas and coag negative staph species Indwelling's: PEG Antimicrobials: IV Bactrim Meropenem PO Vanco Physical examination: Fragile elderly man who is in no distress. Head atraumatic normocephalic neck is supple chest rise symmetrical breath sounds diminished bases. Heart: S1-S2. Abdomen soft bowel sounds present. E xtremities without cyanosis. Skin: Patient has a large unstageable sacral wound Assessment: 1. MDR gram-negative zeinab bacteremia possibly secondary to urinary tract infection versus sacral decub vs pulmonary 2. Unstageable sacral decubitus ulcer, s/p debridement 3. Urinary tract infection per urinalysis 4. Diarrhea/hx C. difficile colitis 5. History of MRSA endocarditis, treated 6. History of CVA with chronic encephalopathy 7. Dysphagia status post PEG 8. Atrial fibrillation status post RVR Plan: Remains stable, completing abx for bacteremia, pending dc arrangements Consultation Date/Type/Reason Admit Date/Time Aug 29, 2018 at 07:31 Initial Consult Date Type of Consult id Requesting Provider: SOTO SHERMAN Date/Time of Note DATE: 09/16/18 TIME: 11:34 Exam/Review of Systems Exam Vitals Vital Signs Date Temp Pulse Resp B/P (MAP) Pulse Ox O2 O2 Flow FiO2 Time Delivery Rate 09/16/18 Nasal 2.0 09:27 Cannula 09/16/18 98.3 76 15 98/58 (71) 97 08:03 Intake and Output 09/15/18 09/15/18 09/16/18 1515:00 23:00 07:00 IntakeIntake Total 1645 ml OutputOutput Total 1300 ml 1600 ml BalanceBalance -1300 ml 45 ml Results Result Diagram: 09/15/1890309/15/18903 Medications Medication Current Medications IV Flush (NS 3 ml) 3 ml PER PROTOCOL IV ; Start 08/28/18 at 00:00 Ondansetron HCl (Zofran Inj) 4 mg Q6H PRN IV NAUSEA/VOMITING; Start 08/28/18 at 00:00 Acetaminophen (Tylenol Tab) 650 mg Q6H PRN PO .PAIN 1-3 OR TEMP; Start 08/28/18 at 00:00 Amiodarone HCl (Cordarone) 200 mg BID PO Last administered on 09/16/18 09:07; Admin Dose 200 MG; Start 08/28/18 at 00:00 Ipratropium [place] (Atrovent 0.02% (Neb)) 0.5 mg Q6H RESP THERAPY PRN INH SHORTNESS OF BREATH; Start 08/28/18 at 00:00 Lansoprazole (Prevacid) 30 mg DAILY@0600 PO Last administered on 09/16/18 05:40; Admin Dose 30 MG; Start 08/28/18 at 06:00 Levalbuterol (Xopenex Hfa) 1 puff Q4H RESP THERAPY PRN INH WHEEZING AND SOB; Start 08/28/18 at 00:00 Miscellaneous Information (Pending Santyl Order For Wound Care) This patient dugan... PRN PRN XX WOUND CARE; Start 08/28/18 at 19:00 Multivitamins (Multivitamin) 30 ml DAILY GTB Last administered on 09/16/18 09:08; Admin Dose 30 ML; Start 08/30/18 at 09:00 Ascorbic Acid (Vitamin C) 500 mg DAILY GTB Last administered on 09/16/18 09:08; Admin Dose 500 MG; Start 08/30/18 at 09:00 Diltiazem HCl (Cardizem) 60 mg Q8 PO Last administered on 09/15/18 21:45; Admin Dose 60 MG; Start 08/31/18 at 22:00 Vancomycin HCl (Vancomycin Oral Syringe) 125 mg Q6 PO Last administered on 09/16/18 05:40; Admin Dose 125 MG; Start 09/01/18 at 18:00 Collagenase (Santyl) 1 applic DAILY TOP Last administered on 09/16/18 09:08; Admin Dose 1 APPLIC; Start 09/03/18 at 10:15 Heparin Sodium (Porcine) (Heparin (5000 Units/1ml)) 5,000 unit BID SC Last administered on 09/16/18 09:58; Admin Dose 5,000 UNIT; Start 09/04/18 at 21:00 Meropenem/Sodium Chloride 50 ml @ 100 mls/hr Q8 IVPB Last administered on 09/16/18 05:40; Admin Dose 100 MLS/HR; Start 09/04/18 at 14:00 Sodium Hypochlorite (Dakins Diluted ()) 1 applic DAILY TP Last administered on 09/16/18at 09:09; Admin Dose 1 APPLIC; Start 09/05/18 at 14:30 Furosemide (Lasix) 20 mg DAILY NGT Last administered on 09/16/18at 09:07; Admin Dose 20 MG; Start 09/06/18 at 09:00 Lactobacillus Acidophilus/ Rhamnosus (Culturelle) 1 cap BID PO Last administered on 09/16/18at 09:08; Admin Dose 1 CAP; Start 09/09/18 at 12:30 Trimethoprim/ Sulfamethoxazole 15 ml/Dextrose 515 ml @ 343.333 mls/hr Q8 IVPB ; Start 09/16/18 at 14:00 SANDER WILL NP Sep 16, 2018 11:35
[2018-09-16 11:43] VITALS: BP 105/61; PULSE 73; RESP 18
--- NOTE | 2018-09-16 14:07 | CONS ---
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 Encephalopathy CVA, hemorrhagic History of nonsustained ventricular tachycardia Continue Cardizem and titrate as needed Antibiotics as per infectious disease Lasix as needed Consultation Date/Type/Reason Admit Date/Time Aug 29, 2018 at 07:31 Initial Consult Date Type of Consult Cardiology Requesting Provider: SOTO SHERMAN Date/Time of Note DATE: 09/16/18 TIME: 14:06 24 HR Interval Summary Free Text/Dictation Seen and examined Exam/Review of Systems Vital Signs Vitals Vital Signs Date Temp Pulse Resp B/P (MAP) Pulse Ox O2 O2 Flow FiO2 Time Delivery Rate 09/16/18 98.3 73 18 105/61 98 11:43 (76) 09/16/18 Nasal 2.0 09:27 Cannula Intake and Output 09/15/18 09/15/18 09/16/18 1515:00 23:00 07:00 IntakeIntake Total 1645 ml OutputOutput Total 1300 ml 1600 ml BalanceBalance -1300 ml 45 ml Exam Exam Sleeping but arousable, no apparent distress Head: normocephalic Respiratory: other (Coarse breath sounds bilaterally, no wheezing) Cardiovascular: irregular rhythm (S1-S2 heard) Gastrointestinal: soft, non-tender, bowel sounds Extremities: other (No significant edema) Labs Result Diagram: 09/15/1890309/15/18903 Medications Medications Current Medications IV Flush (NS 3 ml) 3 ml PER PROTOCOL IV ; Start 08/28/18 at 00:00 Ondansetron HCl (Zofran Inj) 4 mg Q6H PRN IV NAUSEA/VOMITING; Start 08/28/18 at 00:00 Acetaminophen (Tylenol Tab) 650 mg Q6H PRN PO .PAIN 1-3 OR TEMP; Start 08/28/18 at 00:00 Amiodarone HCl (Cordarone) 200 mg BID PO Last administered on 09/16/18at 09:07; Admin Dose 200 MG; Start 08/28/18 at 00:00 Ipratropium [place] (Atrovent 0.02% (Neb)) 0.5 mg Q6H RESP THERAPY PRN INH SHORTNESS OF BREATH; Start 08/28/18 at 00:00 Lansoprazole (Prevacid) 30 mg DAILY@0600 PO Last administered on 09/16/18 05:40; Admin Dose 30 MG; Start 08/28/18 at 06:00 Levalbuterol (Xopenex Hfa) 1 puff Q4H RESP THERAPY PRN INH WHEEZING AND SOB; Start 08/28/18 at 00:00 Miscellaneous Information (Pending Santyl Order For Wound Care) This patient dugan... PRN PRN XX WOUND CARE; Start 08/28/18 at 19:00 Multivitamins (Multivitamin) 30 ml DAILY GTB Last administered on 09/16/18 09:08; Admin Dose 30 ML; Start 08/30/18 at 09:00 Ascorbic Acid (Vitamin C) 500 mg DAILY GTB Last administered on 09/16/18 09:08; Admin Dose 500 MG; Start 08/30/18 at 09:00 Diltiazem HCl (Cardizem) 60 mg Q8 PO Last administered on 09/15/18 21:45; Admin Dose 60 MG; Start 08/31/18 at 22:00 Vancomycin HCl (Vancomycin Oral Syringe) 125 mg Q6 PO Last administered on 09/16/18 12:48; Admin Dose 125 MG; Start 09/01/18 at 18:00 Collagenase (Santyl) 1 applic DAILY TOP Last administered on 09/16/18 09:08; Admin Dose 1 APPLIC; Start 09/03/18 at 10:15 Heparin Sodium (Porcine) (Heparin (5000 Units/1ml)) 5,000 unit BID SC Last administered on 09/16/18 09:58; Admin Dose 5,000 UNIT; Start 09/04/18 at 21:00 Meropenem/Sodium Chloride 50 ml @ 100 mls/hr Q8 IVPB Last administered on 09/16/18 05:40; Admin Dose 100 MLS/HR; Start 09/04/18 at 14:00 Sodium Hypochlorite (Dakins Diluted (40)) 1 applic DAILY TP Last administered on 09/16/18 09:09; Admin Dose 1 APPLIC; Start 09/05/18 at 14:30 Furosemide (Lasix) 20 mg DAILY NGT Last administered on 09/16/18 09:07; Admin Dose 20 MG; Start 09/06/18 at 09:00 Lactobacillus Acidophilus/ Rhamnosus (Culturelle) 1 cap BID PO Last administered on 09/16/18at 09:08; Admin Dose 1 CAP; Start 09/09/18 at 12:30 Trimethoprim/ Sulfamethoxazole 15 ml/Dextrose 515 ml @ 343.333 mls/hr Q8 IVPB ; Start 09/16/18 at 14:00 Charan Cottrell DO Sep 16, 2018 14:07
[2018-09-16] MEDS: TRIMETHOPRIM/SULFAMETHOXAZOLE 15 ML in DEXTROSE 5% 500 ML IVPB SCH ×2 (14:56→23:04)
--- NOTE | 2018-09-16 15:39 | PN ---
Date/Time of Note Date/Time of Note DATE: 09/16/18 TIME: 15:35 Assessment/Plan VTE Prophylaxis Risk score (from Ns)>0 risk: 7 [place] [facility] [place]CD contraindicated: other (no) Pharmacological prophylaxis: heparin Lines/Catheters IV Catheter Type (from [facility]): Peripheral IV Urinary Cath still in place: No Assessment/Plan Assessment/Plan 72-year-old male with atrial fibrillation, multifocal infarcts, dementia, chronic encephalopathy, psychosis/schizophrenia, MV endocarditis, dysphagia with G-tube who presents with: 1. Atrial fibrillation with RVR: rate controlled presently -Continue PO amiodarone and diltiazem 2. Healthcare associated pneumonia: X-ray earlier this admission showed worsening consolidation -Completed a course of antibiotics. 3. Bacteremia -patient found with MDR gram-negative zeinab bacteremia likely due to necrotic sacral decubitus ulcer. - Completed a 2 week course of meropenem. 4. Dysphagia with G-tube -For now continue tube feeds 5. History of recent MV endocarditis - s/p course of IV vancomycin, completed 08/27 6. Stage III sacral decub ulcer -Surgical sacral decub ulcer debridement per Dr. Cherry on 09/15 - Keep weight offloaded. - Prior to debridement a wound swab was done growing ESBL E Coli. This probably represents colonization and isolation protocol should be adjusted accordingly. Dispo: Medically clear to return to SNF to complete course of meropenem, Bactrim, and Vanco until 09/19. Result Diagram: 09/15/18 0904 09/15/18 09 Subjective 24 Hr Interval Summary Free Text/Dictation Patient got bedside sacral ulcer debridement yesterday. This morning doing well. Exam/Review of Systems Exam Vitals Vital Signs Date Temp Pulse Resp B/P (MAP) Pulse Ox O2 O2 Flow FiO2 Time Delivery Rate 09/16/18 98.3 73 18 105/61 98 11:43 (76) 09/16/18 Nasal 2.0 09:27 Cannula Intake and Output 09/15/18 09/15/18 09/16/18 1515:00 23:00 07:00 IntakeIntake Total 1645 ml OutputOutput Total 1300 ml 1600 ml BalanceBalance -1300 ml 45 ml Exam General: Frail elderly man lying in bed. Head: Normocephalic, atraumatic. Eyes: Pupils equally reactive, EOM intact ENT: Moist mucous membranes Neck: Supple, no lymphadenopathy Respiratory: Slightly distant breath sounds bilaterally Cardiovascular: No rubs or gallops Abdominal: Soft, non-tender, non-distended, no peritoneal sign MSK: No lower extremity bilaterally. Severe leg muscle atrophy. Medications Medication Current Medications IV Flush (NS 3 ml) 3 ml PER PROTOCOL IV ; Start 08/28/18 at 00:00 Ondansetron HCl (Zofran Inj) 4 mg Q6H PRN IV NAUSEA/VOMITING; Start 08/28/18 at 00:00 Acetaminophen (Tylenol Tab) 650 mg Q6H PRN PO .PAIN 1-3 OR TEMP; Start 08/28/18 at 00:00 Amiodarone HCl (Cordarone) 200 mg BID PO Last administered on 09/16/18at 09:07; Admin Dose 200 MG; Start 08/28/18 at 00:00 Ipratropium [place] (Atrovent 0.02% (Neb)) 0.5 mg Q6H RESP THERAPY PRN INH SHORTNESS OF BREATH; Start 08/28/18 at 00:00 Lansoprazole (Prevacid) 30 mg DAILY@0600 PO Last administered on 09/16/18at 05:40; Admin Dose 30 MG; Start 08/28/18 at 06:00 Levalbuterol (Xopenex Hfa) 1 puff Q4H RESP THERAPY PRN INH WHEEZING AND SOB; Start 08/28/18 at 00:00 Miscellaneous Information (Pending Santyl Order For Wound Care) This patient dugan... PRN PRN XX WOUND CARE; Start 08/28/18 at 19:00 Multivitamins (Multivitamin) 30 ml DAILY GTB Last administered on 09/16/18at 09:08; Admin Dose 30 ML; Start 08/30/18 at 09:00 Ascorbic Acid (Vitamin C) 500 mg DAILY GTB Last administered on 09/16/18at 09:08; Admin Dose 500 MG; Start 08/30/18 at 09:00 Diltiazem HCl (Cardizem) 60 mg Q8 PO Last administered on 09/15/18at 21:45; Admin Dose 60 MG; Start 08/31/18 at 22:00 Vancomycin HCl (Vancomycin Oral Syringe) 125 mg Q6 PO Last administered on 09/16/18at 12:48; Admin Dose 125 MG; Start 09/01/18 at 18:00 Collagenase (Santyl) 1 applic DAILY TOP Last administered on 09/16/18 09:08; Admin Dose 1 APPLIC; Start 09/03/18 at 10:15 Heparin Sodium (Porcine) (Heparin (5000 Units/1ml)) 5,000 unit BID SC Last administered on 09/16/18 09:58; Admin Dose 5,000 UNIT; Start 09/04/18 at 21:00 Meropenem/Sodium Chloride 50 ml @ 100 mls/hr Q8 IVPB Last administered on 09/16/18 14:10; Admin Dose 100 MLS/HR; Start 09/04/18 at 14:00 Sodium Hypochlorite (Dakins Diluted (40)) 1 applic DAILY TP Last administered on 09/16/18 09:09; Admin Dose 1 APPLIC; Start 09/05/18 at 14:30 Furosemide (Lasix) 20 mg DAILY NGT Last administered on 09/16/18 09:07; Admin Dose 20 MG; Start 09/06/18 at 09:00 Lactobacillus Acidophilus/ Rhamnosus (Culturelle) 1 cap BID PO Last ad ministered on 09/16/18 09:08; Admin Dose 1 CAP; Start 09/09/18 at 12:30 Trimethoprim/ Sulfamethoxazole 15 ml/Dextrose 515 ml @ 343.333 mls/hr Q8 IVPB Last administered on 09/16/18 14:56; Admin Dose 343.333 MLS/HR; Start 09/16/18 at 14:00 RACIEL HUMPHREY MD Sep 16, 2018 15:39
[2018-09-16 16:00] VITALS: BP 103/63; PULSE 77; RESP 19
--- NOTE | 2018-09-16 16:23 | PN ---
Date/Time of Note Date/Time of Note DATE: 09/16/18 TIME: 16:19 Assessment/Plan Lines/Catheters IV C[facility] Type ([facility] Peripheral IV Jimenez in Place (from [facility]): No Assessment/Plan Chief Complaint/Hosp Course 1. Sacral wound:+ Wound cultures; Status post bioethics meeting and debridement 09/15/2018 -DC okay from surgical standpoint with same wound care orders -further debridement as needed -continue local care -frequent turning and off-loading -low air loss mattress -vitamin c -short term zinc -optimize nutrition 2. Bacteremia: Repeat BC NGTD -Antibiotics per sensitivity> per ID -Follow cultures 3. Atrial fibrillation: controlled/uncontrolled rate -Rate control and anticoagulation per cards 4. UTI: -abx per sensitivity -frequent bladder emptying/cath care 5. Pneumonia with small bilateral pleural effusions -Pulmonary toilet -Antibiotics -Fluid management 6. Malnutrition: -Optimize nutrition 7. Dysphagia status post PEG -Tube feeds with aspiration precautions 8. Diastolic CHF with c preserved EF, history of MV endocarditis status post a ntibiotics -Per cardiology -Cardiac optimization 9. Liquid stools -stool studies if persistent Thank you. Patient seen and examined in collaboration with Dr. Serge Cherry. Subjective 24 Hr Interval Summary Status post excisional debridement of sacral wound yesterday. No fevers, labored breathing, congested cough, vomting, diarrhea, sz, rash, wound bleeding. Appears comfortable. Nonverbal indicators of pain not present. Exam/Review of Systems Vital Signs Vitals Vital Signs Date Temp Pulse Resp B/P (MAP) Pulse Ox O2 O2 Flow FiO2 Time Delivery Rate 09/16/18 98.3 73 18 105/61 98 11:43 (76) 09/16/18 Nasal 2.0 09:27 Cannula Intake and Output 09/15/18 09/15/18 09/16/18 1515:00 23:00 07:00 IntakeIntake Total 1645 ml OutputOutput Total 1300 ml 1600 ml BalanceBalance -1300 ml 45 ml Exam Free Text/Dictation Constitutional: alert, oriented ( x1-2; Forgetful), well developed, other (somnolent) Psych: nl mood/affect, anxiety (Minimal) Head: normocephalic, atraumatic Eyes: nl conjunctiva, EOMI, nl lids, nl sclera ENMT: nl external ears & nose, nl lips & teeth, mucosa pink and moist Neck: supple, non-tender; No jvd Respiratory: normal air movement; No congested cough, No labored breathing Cardiovascular: regular rate and rhythm, nl pulses Gastrointestinal: soft, non-tender, other (PEG), rectal tube (liquid stool) Genitourinary - Male: nl penis, nl scrotum Musculoskeletal: other (Muscle atrophy bilateral lower extremities); No nl extremities to inspection Extremities: normal pulses; No pitting pedal edema Neurological: nl speech; No nl strength (Generalized weakness) Skin: other (Sacral wound: Improved Slough, no bleeding, minimal drainage, no odor, minimal periwound erythema); No rash or lesions Results Result Diagram: 09/15/18 0904 09/15/18 0904 AUSTEN WESTON NP Sep 16, 2018 16:23
[2018-09-16 20:30] VITALS: BP 87/59; PULSE 85; RESP 18
[2018-09-17] VITALS: BP 88/50; PULSE 92; RESP 20
[2018-09-17] MEDS: VANCOMYCIN HCL 250 MG/5ML POSYG PO SCH ×4 (00:08→17:24)
[2018-09-17 04:14] VITALS: BP 104/56; PULSE 78; RESP 18
[2018-09-17] MEDS: MEROPENEM 1 GM/50ML(PMX) 50 ML IVPB SCH ×3 (05:45→22:48)
[2018-09-17] MEDS: DILTIAZEM 30 MG TAB PO SCH ×3 (05:46→21:49)
[2018-09-17] MEDS: LANSOPRAZOLE 30 MG CAP PO SCH (05:49)
[2018-09-17] MEDS: TRIMETHOPRIM/SULFAMETHOXAZOLE 15 ML in DEXTROSE 5% 500 ML IVPB SCH ×3 (06:24→21:47)
[2018-09-17 07:37] VITALS: BP 89/57; PULSE 86; RESP 18
[2018-09-17] MEDS: LACTOBACILLUS RHAMNOSUS CAP PO SCH ×2 (09:00→21:47)
[2018-09-17] MEDS: BALSAM PERU/CASTOR OIL 60 GM TUBE TOP SCH ×2 (09:00→21:51)
[2018-09-17] MEDS: ASCORBIC ACID 500 MG TAB GTB SCH (09:44)
[2018-09-17] MEDS: MULTIVITAMINS 30 ML CUP GTB SCH (09:44)
[2018-09-17] MEDS: FUROSEMIDE 20 MG TAB NGT SCH (09:44)
[2018-09-17] MEDS: AMIODARONE 200 MG TAB PO SCH ×2 (09:45→21:50)
[2018-09-17] MEDS: DAKINS 0.0125%(1/40) 473 ML SOLUTION TP SCH (09:50)
[2018-09-17] MEDS: COLLAGENASE 5 GM (UD JAR) TOP SCH (09:50)
[2018-09-17] MEDS: HEPARIN 5,000 UNIT/1 ML VIAL SC SCH ×2 (10:30→22:12)
[2018-09-17 11:00] VITALS: BP 100/56; PULSE 76; RESP 18
--- NOTE | 2018-09-17 12:05 | PN ---
Date/Time of Note Date/Time of Note DATE: 09/17/18 TIME: 12:02 Assessment/Plan VTE Prophylaxis Risk score (from Nsg)>0 risk: 8 Pharmacological prophylaxis: heparin Lines/Catheters IV Catheter Type (from Nrs): Saline Lock Urinary Cath still in place: No Assessment/Plan Hospital Course 72-year-old male with atrial fibrillation, multifocal infarcts, dementia, chronic encephalopathy, psychosis/schizophrenia, MV endocarditis, dysphagia with G-tube who presents with: 1. Atrial fibrillation with RVR: rate controlled presently -Continue PO amiodarone and diltiazem 2. Healthcare associated pneumonia: X-ray earlier this admission showed worsening consolidation -Completed a course of antibiotics. 3. Bacteremia -patient found with MDR gram-negative zeinab bacteremia likely due to necrotic sacral decubitus ulcer. - Completed a 2 week course of meropenem. 4. Dysphagia with G-tube -For now continue tube feeds 5. History of recent MV endocarditis - s/p course of IV vancomycin, completed 08/27 6. Stage III sacral decub ulcer -Surgical sacral decub ulcer debridement per Dr. Cherry on 09/15 - Keep weight offloaded. - Prior to debridement a wound swab was done growing ESBL E Coli. This prob ably represents colonization and isolation protocol should be adjusted accordingly. Prophylaxis: Heparin Dispo: Medically clear to return to SNF to complete course of meropenem, Bactrim, and Vanco until 09/19, waiting for isolation bed Result Diagram: 09/15/1890309/15/18903 Subjective 24 Hr Interval Summary Constitutional: disoriented Exam/Review of Systems Exam Vitals Vital Signs Date Temp Pulse Resp B/P (MAP) Pulse Ox O2 O2 Flow FiO2 Time Delivery Rate 09/17/18 Nasal 2.0 09:30 Cannula 09/17/18 97.6 86 18 89/57 (68) 98 07:37 Intake and Output 09/16/18 09/16/18 09/17/18 1515:00 23:00 07:00 IntakeIntake Total 1080 ml 1695 ml OutputOutput Total 1400 ml 1400 ml BalanceBalance -320 ml 295 ml Constitutional: alert Psych: confusion Respiratory: clear to auscultation Cardiovascular: regular rate and rhythm Gastrointestinal: soft; No distended Musculoskeletal: nl extremities to inspection Medications Medication Current Medications IV Flush (NS 3 ml) 3 ml PER PROTOCOL IV ; Start 08/28/18 at 00:00 Ondansetron HCl (Zofran Inj) 4 mg Q6H PRN IV NAUSEA/VOMITING; Start 08/28/18 at 00:00 Acetaminophen (Tylenol Tab) 650 mg Q6H PRN PO .PAIN 1-3 OR TEMP; Start 08/28/18 at 00:00 Amiodarone HCl (Cordarone) 200 mg BID PO Last administered on 09/17/18 09:45; Admin Dose 200 MG; Start 08/28/18 at 00:00 Ipratropium [place] (Atrovent 0.02% (Neb)) 0.5 mg Q6H RESP THERAPY PRN INH SHORTNESS OF BREATH; Start 08/28/18 at 00:00 Lansoprazole (Prevacid) 30 mg DAILY@0600 PO Last administered on 09/17/18 05:49; Admin Dose 30 MG; Start 08/28/18 at 06:00 Levalbuterol (Xopenex Hfa) 1 puff Q4H RESP THERAPY PRN INH WHEEZING AND SOB; Start 08/28/18 at 00:00 Miscellaneous Information (Pending Santyl Order For Wound Care) This patient dugan... PRN PRN XX WOUND CARE; Start 08/28/18 at 19:00 Multivitamins (Multivitamin) 30 ml DAILY GTB Last administered on 09/17/18 09:44; Admin Dose 30 ML; Start 08/30/18 at 09:00 Ascorbic Acid (Vitamin C) 500 mg DAILY GTB Last administered on 09/17/18 09:44; Admin Dose 500 MG; Start 08/30/18 at 09:00 Diltiazem HCl (Cardizem) 60 mg Q8 PO Last administered on 09/15/18 21:45; Admin Dose 60 MG; Start 08/31/18 at 22:00 Vancomycin HCl (Vancomycin Oral Syringe) 125 mg Q6 PO Last administered on 09/17/18 05:49; Admin Dose 125 MG; Start 09/01/18 at 18:00 Collagenase (Santyl) 1 applic DAILY TOP Last administered on 09/17/18 09:50; Admin Dose 1 APPLIC; Start 09/03/18 at 10:15 Heparin Sodium (Porcine) (Heparin (5000 Units/1ml)) 5,000 unit BID SC Last administered on 09/17/18 10:30; Admin Dose 5,000 UNIT; Start 09/04/18 at 21:00 Meropenem/Sodium Chloride 50 ml @ 100 mls/hr Q8 IVPB Last administered on 09/17/18 05:45; Admin Dose 100 MLS/HR; Start 09/04/18 at 14:00 Sodium Hypochlorite (Dakins Diluted (40)) 1 applic DAILY TP Last administered on 09/17/18 09:50; Admin Dose 1 APPLIC; Start 09/05/18 at 14:30 Furosemide (Lasix) 20 mg DAILY NGT Last administered on 09/17/18 09:44; Admin Dose 20 MG; Start 09/06/18 at 09:00 Lactobacillus Acidophilus/ Rhamnosus (Culturelle) 1 cap BID PO Last administered on 09/16/18 20:49; Admin Dose 1 CAP; Start 09/09/18 at 12:30 Trimethoprim/ Sulfamethoxazole 15 ml/Dextrose 515 ml @ 343.333 mls/hr Q8 IVPB Last administered on 09/17/18 06:24; Admin Dose 343.333 MLS/HR; Start 09/16/18 at 14:00 AIDA BRANDT Sep 17, 2018 12:05
[2018-09-17 15:30] VITALS: BP 101/59; PULSE 90; RESP 18
[2018-09-17 20:00] VITALS: BP 101/54; PULSE 94; RESP 20
--- NOTE | 2018-09-17 23:13 | PN ---
Date/Time of Note Date/Time of Note DATE: 09/17/18 TIME: 23:13 Assessment/Plan Lines/Catheters IV Catheter Type (from [facility]): Saline Lock Jimenez in Place (from [facility]): No Assessment/Plan Chief Complaint/Hosp Course 1. Sacral wound:+ Wound cultures -debridement (still pending consent- bioethics pending) -continue local care -frequent turning and off-loading -low air loss mattress -vitamin c -short term zinc -optimize nutrition 2. Bacteremia: Repeat BC NGTD -Antibiotics per sensitivity -Follow cultures 3. Atrial fibrillation: controlled/uncontrolled rate -Rate control and anticoagulation per cards 4. UTI: -abx per sensitivity -frequent bladder emptying/cath care 5. Pneumonia with small bilateral pleural effusions -Pulmonary toilet -Antibiotics -Fluid management 6. Malnutrition: -Optimize nutrition 7. Dysphagia status post PEG -Tube feeds with aspiration precautions 8. Diastolic CHF with c preserved EF, history of MV endocarditis status post antibiotics -Per cardiology -Cardiac optimization 9. Liquid stools -stool studies if persistent Thank you Subjective 24 Hr Interval Summary s/p Excisional debridement of sacral wound yesterday. No fevers, labored breathing, congested cough, vomting, diarrhea, sz, rash, wound bleeding. Appears comfortable. Nonverbal indicators of pain not present. Exam/Review of Systems Vital Signs Vitals Vital Signs Date Temp Pulse Resp B/P (MAP) Pulse Ox O2 O2 Flow FiO2 Time Delivery Rate 09/19/18 97.9 94 19 87/53 (64) 99 Nasal 3.0 11:10 Cannula Intake and Output 09/18/18 09/18/18 09/19/18 1515:00 23:00 07:00 IntakeIntake Total 980 ml OutputOutput Total 900 ml 700 ml 1300 ml BalanceBalance -900 ml -700 ml -320 ml Exam Free Text/Dictation Constitutional: alert, oriented ( x1-2; Forgetful), well developed, other (somnolent) Psych: nl mood/affect, anxiety (Minimal) Head: normocephalic, atraumatic Eyes: nl conjunctiva, EOMI, nl lids, nl sclera ENMT: nl external ears & nose, nl lips & teeth, mucosa pink and moist Neck: supple, non-tender; No jvd Respiratory: normal air movement; No congested cough, No labored breathing Cardiovascular: regular rate and rhythm, nl pulses Gastrointestinal: soft, non-tender, other (PEG), rectal tube (liquid stool) Genitourinary - Male: nl penis, nl scrotum Musculoskeletal: other (Muscle atrophy bilateral lower extremities); No nl extremities to inspection Extremities: normal pulses; No pitting pedal edema Neurological: nl speech; No nl strength (Generalized weakness) Skin: other (Sacral wound: Improved Slough, no bleeding, minimal drainage, no odor, minimal periwound erythema); No rash or lesions Results Result Diagram: 09/15/18 0904 09/15/18 0904 ANGIE GORDON MD Sep 17, 2018 23:13
--- NOTE | 2018-09-17 23:39 | PN ---
Date/Time of Note Date/Time of Note DATE: 09/17/18 TIME: 23:37 Assessment/Plan Lines/Catheters IV Catheter Type (from [facility]): Saline Lock Jimenez in Place (from [facility]): No Assessment/Plan Chief Complaint/Hosp Course 1. Sacral wound:+ Wound cultures; Status post bioethics meeting and debridement 09/15/2018 -DC okay from surgical standpoint with same wound care orders -further debridement as needed -continue local care -frequent turning and off-loading -low air loss mattress -vitamin c -short term zinc -optimize nutrition 2. Bacteremia: Repeat BC NGTD -Antibiotics per sensitivity> per ID -Follow cultures 3. Atrial fibrillation: controlled/uncontrolled rate -Rate control and anticoagulation per cards 4. UTI: -abx per sensitivity -frequent bladder emptying/cath care 5. Pneumonia with small bilateral pleural effusions -Pulmonary toilet -Antibiotics -Fluid management 6. Malnutrition: -Optimize nutrition 7. Dysphagia status post PEG -Tube feeds with aspiration precautions 8. Diastolic CHF with c preserved EF, history of MV endocarditis status post ant ibiotics -Per cardiology -Cardiac optimization 9. Liquid stools -stool studies if persistent Thank you Subjective 24 Hr Interval Summary s/p Excisional debridement of sacral wound 07/16. No fevers, labored breathing, congested cough, vomting, diarrhea, sz, rash, wound bleeding. Appears comfortable. Nonverbal indicators of pain not present. Exam/Review of Systems Vital Signs Vitals Vital Signs Date Temp Pulse Resp B/P (MAP) Pulse Ox O2 O2 Flow FiO2 Time Delivery Rate 09/17/18 98.0 94 20 101/54 97 Nasal 20:00 (70) Cannula 09/17/18 2.0 17:53 Intake and Output 09/16/18 09/16/18 09/17/18 1515:00 23:00 07:00 IntakeIntake Total 1080 ml 1695 ml OutputOutput Total 1400 ml 1400 ml BalanceBalance -320 ml 295 ml Exam Free Text/Dictation Constitutional: alert, oriented ( x1-2; Forgetful), well developed, other (somnolent) Psych: nl mood/affect, anxiety (Minimal) Head: normocephalic, atraumatic Eyes: nl conjunctiva, EOMI, nl lids, nl sclera ENMT: nl external ears & nose, nl lips & teeth, mucosa pink and moist Neck: supple, non-tender; No jvd Respiratory: normal air movement; No congested cough, No labored breathing Cardiovascular: regular rate and rhythm, nl pulses Gastrointestinal: soft, non-tender, other (PEG), rectal tube (liquid stool) Genitourinary - Male: nl penis, nl scrotum Musculoskeletal: other (Muscle atrophy bilateral lower extremities); No nl extremities to inspection Extremities: normal pulses; No pitting pedal edema Neurological: nl speech; No nl strength (Generalized weakness) Skin: other (Sacral wound: Improved Slough, no bleeding, minimal drainage, no odor, minimal periwound erythema); No rash or lesions Results Result Diagram: 09/15/18 0904 09/15/18 0904 ANGIE GORDON MD Sep 17, 2018 23:39
[2018-09-18] MEDS: VANCOMYCIN HCL 250 MG/5ML POSYG PO SCH ×4 (00:20→17:27)
[2018-09-18 00:35] VITALS: BP 100/54; PULSE 97; RESP 20
[2018-09-18 04:32] VITALS: BP 99/57; PULSE 85; RESP 20
[2018-09-18] MEDS: DILTIAZEM 30 MG TAB PO SCH ×3 (05:35→21:33)
[2018-09-18] MEDS: LANSOPRAZOLE 30 MG CAP PO SCH (05:47)
[2018-09-18] MEDS: MEROPENEM 1 GM/50ML(PMX) 50 ML IVPB SCH (05:47)
[2018-09-18] MEDS: TRIMETHOPRIM/SULFAMETHOXAZOLE 15 ML in DEXTROSE 5% 500 ML IVPB SCH (06:27)
[2018-09-18 08:08] VITALS: BP 88/58; PULSE 93; RESP 20
[2018-09-18] MEDS: LACTOBACILLUS RHAMNOSUS CAP PO SCH ×2 (09:29→21:50)
[2018-09-18] MEDS: MULTIVITAMINS 30 ML CUP GTB SCH (09:30)
[2018-09-18] MEDS: ASCORBIC ACID 500 MG TAB GTB SCH (09:32)
[2018-09-18] MEDS: FUROSEMIDE 20 MG TAB NGT SCH (09:35)
[2018-09-18] MEDS: AMIODARONE 200 MG TAB PO SCH ×2 (09:36→21:51)
[2018-09-18] MEDS: DAKINS 0.0125%(1/40) 473 ML SOLUTION TP SCH (09:53)
[2018-09-18] MEDS: COLLAGENASE 5 GM (UD JAR) TOP SCH (09:53)
[2018-09-18] MEDS: BALSAM PERU/CASTOR OIL 60 GM TUBE TOP SCH ×2 (09:55→21:50)
[2018-09-18] MEDS: HEPARIN 5,000 UNIT/1 ML VIAL SC SCH ×2 (09:59→22:08)
--- NOTE | 2018-09-18 11:39 | PN ---
Date/Time of Note Date/Time of Note DATE: 09/18/18 TIME: 11:38 Assessment/Plan Lines/Catheters IV Catheter Type (from [facility]): Saline Lock Jimenez in Place (from [facility]): No Assessment/Plan Chief Complaint/Hosp Course 1. Sacral wound:+ Wound cultures; Status post bioethics meeting and debridement 09/15/2018 -DC okay from surgical standpoint with same wound care orders -further debridement as needed -continue local care -frequent turning and off-loading -low air loss mattress -vitamin c -short term zinc -optimize nutrition 2. Bacteremia: Repeat BC NGTD -Antibiotics per sensitivity> per ID -Follow cultures 3. Atrial fibrillation: controlled/uncontrolled rate -Rate control and anticoagulation per cards 4. UTI: -abx per sensitivity -frequent bladder emptying/cath care 5. Pneumonia with small bilateral pleural effusions -Pulmonary toilet -Antibiotics -Fluid management 6. Malnutrition: -Optimize nutrition 7. Dysphagia status post PEG -Tube feeds with aspiration precautions 8. Diastolic CHF with c preserved EF, history of MV endocarditis status post ant ibiotics -Per cardiology -Cardiac optimization 9. Liquid stools -stool studies if persistent Thank you Subjective 24 Hr Interval Summary No fevers, labored breathing, congested cough, vomting, diarrhea, sz, rash, wound bleeding. Appears comfortable. Nonverbal indicators of pain not present. Exam/Review of Systems Vital Signs Vitals Vital Signs Date Temp Pulse Resp B/P (MAP) Pulse Ox O2 O2 Flow FiO2 Time Delivery Rate 09/18/18 98.1 93 20 88/58 (68) 100 Nasal 08:08 Cannula 09/18/18 2.0 04:08 Intake and Output 09/17/18 09/17/18 09/18/18 1515:00 23:00 07:00 IntakeIntake Total 1080 ml 1745 ml OutputOutput Total 2100 ml 300 ml BalanceBalance -1020 ml 1445 ml Exam Free Text/Dictation Constitutional: alert, oriented ( x1-2; Forgetful), well developed, other (somnolent) Psych: nl mood/affect, anxiety (Minimal) Head: normocephalic, atraumatic Eyes: nl conjunctiva, EOMI, nl lids, nl sclera ENMT: nl external ears & nose, nl lips & teeth, mucosa pink and moist Neck: supple, non-tender; No jvd Respiratory: normal air movement; No congested cough, No labored breathing Cardiovascular: regular rate and rhythm, nl pulses Gastrointestinal: soft, non-tender, other (PEG), rectal tube (liquid stool) Genitourinary - Male: nl penis, nl scrotum Musculoskeletal: other (Muscle atrophy bilateral lower extremities); No nl extremities to inspection Extremities: normal pulses; No pitting pedal edema Neurological: nl speech; No nl strength (Generalized weakness) Skin: other (Sacral wound: Improved Slough, no bleeding, minimal drainage, no odor, minimal periwound erythema); No rash or lesions Results Result Diagram: 09/15/18 0904 09/15/18 0904 ANGIE GORDON MD Sep 18, 2018 11:39
--- NOTE | 2018-09-18 11:45 | CONS ---
Assessment/Plan Assessment/Plan Hospital Course (Demo Recall) No acute changes, looks comfortable, no fevers overnight Blood culture on admission grew MDR A.b. Wound culture growing E. coli multidrug-resistant Acinetobacter Pseudomonas and coag negative staph species Indwelling's: PEG Antimicrobials: IV Bactrim Meropenem PO Vanco Physical examination: Fragile elderly man who is in no distress. Head atraumatic normocephalic neck is supple chest rise symmetrical breath sounds diminished bases. Heart: S1-S2. Abdomen soft bowel sounds present. E xtremities without cyanosis. Skin: Patient has a large unstageable sacral wound Assessment: 1. MDR gram-negative zeinab bacteremia possibly secondary to urinary tract infection versus sacral decub vs pulmonary 2. Unstageable sacral decubitus ulcer, s/p debridement 3. Urinary tract infection per urinalysis 4. Diarrhea/hx C. difficile colitis 5. History of MRSA endocarditis, treated 6. History of CVA with chronic encephalopathy 7. Dysphagia status post PEG 8. Atrial fibrillation status post RVR Plan: Remains stable, completed abx for bacteremia, pending dc arrangements Consultation Date/Type/Reason Admit Date/Time Aug 29, 2018 at 07:31 Initial Consult Date Type of Consult id Requesting Provider: SOTO SHERMAN Date/Time of Note DATE: 09/18/18 TIME: 11:44 Exam/Review of Systems Exam Vitals Vital Signs Date Temp Pulse Resp B/P (MAP) Pulse Ox O2 O2 Flow FiO2 Time Delivery Rate 09/18/18 98.1 93 20 88/58 (68) 100 Nasal 08:08 Cannula 09/18/18 2.0 04:08 Intake and Output 09/17/18 09/17/18 09/18/18 1515:00 23:00 07:00 IntakeIntake Total 1080 ml 1745 ml OutputOutput Total 2100 ml 300 ml BalanceBalance -1020 ml 1445 ml Results Result Diagram: 09/15/18 0904 09/15/18 09 Medications Medication Current Medications IV Flush (NS 3 ml) 3 ml PER PROTOCOL IV ; Start 08/28/18 at 00:00 Ondansetron HCl (Zofran Inj) 4 mg Q6H PRN IV NAUSEA/VOMITING; Start 08/28/18 at 00:00 Acetaminophen (Tylenol Tab) 650 mg Q6H PRN PO .PAIN 1-3 OR TEMP; Start 08/28/18 at 00:00 Amiodarone HCl (Cordarone) 200 mg BID PO Last administered on 09/18/18 09:36; Admin Dose 200 MG; Start 08/28/18 at 00:00 Ipratropium [place] (Atrovent 0.02% (Neb)) 0.5 mg Q6H RESP THERAPY PRN INH SHORTNESS OF BREATH; Start 08/28/18 at 00:00 Lansoprazole (Prevacid) 30 mg DAILY@0600 PO Last administered on 09/18/18 05:47; Admin Dose 30 MG; Start 08/28/18 at 06:00 Levalbuterol (Xopenex Hfa) 1 puff Q4H RESP THERAPY PRN INH WHEEZING AND SOB; Start 08/28/18 at 00:00 Miscellaneous Information (Pending Santyl Order For Wound Care) This patient dugan... PRN PRN XX WOUND CARE; Start 08/28/18 at 19:00 Multivitamins (Multivitamin) 30 ml DAILY GTB Last administered on 09/18/18 09:30; Admin Dose 30 ML; Start 08/30/18 at 09:00 Ascorbic Acid (Vitamin C) 500 mg DAILY GTB Last administered on 09/18/18 09:32; Admin Dose 500 MG; Start 08/30/18 at 09:00 Diltiazem HCl (Cardizem) 60 mg Q8 PO Last administered on 09/15/18 21:45; Admin Dose 60 MG; Start 08/31/18 at 22:00 Vancomycin HCl (Vancomycin Oral Syringe) 125 mg Q6 PO Last administered on 09/18/18 05:47; Admin Dose 125 MG; Start 09/01/18 at 18:00 Collagenase (Santyl) 1 applic DAILY TOP Last administered on 09/18/18 09:53; Admin Dose 1 APPLIC; Start 09/03/18 at 10:15 Heparin Sodium (Porcine) (Heparin (5000 Units/1ml)) 5,000 unit BID SC Last administered on 09/18/18 09:59; Admin Dose 5,000 UNIT; Start 09/04/18 at 21:00 Meropenem/Sodium Chloride 50 ml @ 100 mls/hr Q8 IVPB Last administered on 09/18/18 05:47; Admin Dose 100 MLS/HR; Start 09/04/18 at 14:00 Sodium Hypochlorite (Dakins Diluted (40)) 1 applic DAILY TP Last administered on 09/18/18at 09:53; Admin Dose 1 APPLIC; Start 09/05/18 at 14:30 Furosemide (Lasix) 20 mg DAILY NGT Last administered on 09/18/18 09:35; Admin Dose 20 MG; Start 09/06/18 at 09:00 Lactobacillus Acidophilus/ Rhamnosus (Culturelle) 1 cap BID PO Last administered on 09/18/18at 09:29; Admin Dose 1 CAP; Start 09/09/18 at 12:30 Trimethoprim/ Sulfamethoxazole 15 ml/Dextrose 515 ml @ 343.333 mls/hr Q8 IVPB Last administered on 09/18/18 06:27; Admin Dose 343.333 MLS/HR; Start 09/16/18 at 14:00 SANDER WILL NP Sep 18, 2018 11:44
[2018-09-18 11:47] VITALS: BP 88/56; PULSE 90; RESP 20
--- NOTE | 2018-09-18 14:10 | PN ---
Date/Time of Note Date/Time of Note DATE: 09/18/18 TIME: 14:10 Assessment/Plan VTE Prophylaxis Risk score (from Nsg)>0 risk: 8 Pharmacological prophylaxis: heparin Lines/Catheters IV Catheter Type (from Nrsg): Saline Lock Urinary Cath still in place: No Assessment/Plan Hospital Course 72-year-old male with atrial fibrillation, multifocal infarcts, dementia, chronic encephalopathy, psychosis/schizophrenia, MV endocarditis, dysphagia with G-tube who presents with: 1. Atrial fibrillation with RVR: rate controlled presently -Continue PO amiodarone and diltiazem 2. Healthcare associated pneumonia: X-ray earlier this admission showed worsening consolidation -Completed a course of antibiotics. 3. Bacteremia -patient found with MDR gram-negative zeinab bacteremia likely due to necrotic sacral decubitus ulcer. - Completed a 2 week course of meropenem. 4. Dysphagia with G-tube -For now continue tube feeds 5. History of recent MV endocarditis - s/p course of IV vancomycin, completed 08/27 6. Stage III sacral decub ulcer -Surgical sacral decub ulcer debridement per Dr. Cherry on 09/15 - Keep weight offloaded. - Prior to debridement a wound swab was done growing ESBL E Coli. This prob ably represents colonization and isolation protocol should be adjusted accordingly. Prophylaxis: Heparin Dispo: Medically clear to return to SNF to complete course of meropenem, Bactrim, and Vanco until 09/19, waiting for isolation bed Result Diagram: 09/15/1890309/15/18903 Subjective 24 Hr Interval Summary Subjective hx not possible: pt non-verbal Exam/Review of Systems Exam Vitals Vital Signs Date Temp Pulse Resp B/P (MAP) Pulse Ox O2 O2 Flow FiO2 Time Delivery Rate 09/18/18 97.8 90 20 88/56 (67) 100 Nasal 11:47 Cannula 09/18/18 2.0 04:08 Intake and Output 09/17/18 09/17/18 09/18/18 1515:00 23:00 07:00 IntakeIntake Total 1080 ml 1745 ml OutputOutput Total 2100 ml 300 ml BalanceBalance -1020 ml 1445 ml Constitutional: non-verbal Respiratory: clear to auscultation Cardiovascular: regular rate and rhythm Gastrointestinal: soft; No distended Musculoskeletal: nl extremities to inspection Medications Medication Current Medications IV Flush (NS 3 ml) 3 ml PER PROTOCOL IV ; Start 08/28/18 at 00:00 Ondansetron HCl (Zofran Inj) 4 mg Q6H PRN IV NAUSEA/VOMITING; Start 08/28/18 at 00:00 Acetaminophen (Tylenol Tab) 650 mg Q6H PRN PO .PAIN 1-3 OR TEMP; Start 08/28/18 at 00:00 Amiodarone HCl (Cordarone) 200 mg BID PO Last administered on 09/18/18 09:36; Admin Dose 200 MG; Start 08/28/18 at 00:00 Ipratropium [place] (Atrovent 0.02% (Neb)) 0.5 mg Q6H RESP THERAPY PRN INH SHORTNESS OF BREATH; Start 08/28/18 at 00:00 Lansoprazole (Prevacid) 30 mg DAILY@0600 PO Last administered on 09/18/18 05:47; Admin Dose 30 MG; Start 08/28/18 at 06:00 Levalbuterol (Xopenex Hfa) 1 puff Q4H RESP THERAPY PRN INH WHEEZING AND SOB; Start 08/28/18 at 00:00 Miscellaneous Information (Pending Santyl Order For Wound Care) This patient dugan... PRN PRN XX WOUND CARE; Start 08/28/18 at 19:00 Multivitamins (Multivitamin) 30 ml DAILY GTB Last administered on 09/18/18 09:30; Admin Dose 30 ML; Start 08/30/18 at 09:00 Ascorbic Acid (Vitamin C) 500 mg DAILY GTB Last administered on 09/18/18 09:32; Admin Dose 500 MG; Start 08/30/18 at 09:00 Diltiazem HCl (Cardizem) 60 mg Q8 PO Last administered on 09/15/18 21:45; Admin Dose 60 MG; Start 08/31/18 at 22:00 Vancomycin HCl (Vancomycin Oral Syringe) 125 mg Q6 PO Last administered on 09/18/18 12:14; Admin Dose 125 MG; Start 09/01/18 at 18:00 Collagenase (Santyl) 1 applic DAILY TOP Last administered on 09/18/18 09:53; Admin Dose 1 APPLIC; Start 09/03/18 at 10:15 Heparin Sodium (Porcine) (Heparin (5000 Units/1ml)) 5,000 unit BID SC Last administered on 09/18/18 09:59; Admin Dose 5,000 UNIT; Start 09/04/18 at 21:00 Sodium Hypochlorite (Dakins Diluted ()) 1 applic DAILY TP Last administered on 09/18/18 09:53; Admin Dose 1 APPLIC; Start 09/05/18 at 14:30 Furosemide (Lasix) 20 mg DAILY NGT Last administered on 09/18/18 09:35; Admin Dose 20 MG; Start 09/06/18 at 09:00 Lactobacillus Acidophilus/ Rhamnosus (Culturelle) 1 cap BID PO Last administered on 09/18/18 09:29; Admin Dose 1 CAP; Start 09/09/18 at 12:30 AIDA BRANDT Sep 18, 2018 14:10
[2018-09-18 16:57] VITALS: BP 87/55; PULSE 99; RESP 19
[2018-09-18 20:12] VITALS: BP 92/53; PULSE 90; RESP 16
[2018-09-19] VITALS (7 sets, daily range): BP systolic 87–102; BP diastolic 53–64; PULSE 72–100; RESP 16–20
[2018-09-19] MEDS: VANCOMYCIN HCL 250 MG/5ML POSYG PO SCH ×4 (01:00→20:25)
[2018-09-19] MEDS: LANSOPRAZOLE 30 MG CAP PO SCH (05:35)
[2018-09-19] MEDS: DILTIAZEM 30 MG TAB PO SCH ×3 (05:35→23:01)
[2018-09-19] MEDS: FUROSEMIDE 20 MG TAB NGT SCH (09:20)
[2018-09-19] MEDS: LACTOBACILLUS RHAMNOSUS CAP PO SCH ×2 (09:20→20:24)
[2018-09-19] MEDS: MULTIVITAMINS 30 ML CUP GTB SCH (09:21)
[2018-09-19] MEDS: ASCORBIC ACID 500 MG TAB GTB SCH (09:21)
[2018-09-19] MEDS: AMIODARONE 200 MG TAB PO SCH ×2 (09:21→20:24)
[2018-09-19] MEDS: DAKINS 0.0125%(1/40) 473 ML SOLUTION TP SCH (09:23)
[2018-09-19] MEDS: COLLAGENASE 5 GM (UD JAR) TOP SCH (09:23)
[2018-09-19] MEDS: BALSAM PERU/CASTOR OIL 60 GM TUBE TOP SCH ×2 (09:24→20:40)
[2018-09-19] MEDS: HEPARIN 5,000 UNIT/1 ML VIAL SC SCH ×2 (09:30→20:39)
--- NOTE | 2018-09-19 12:28 | CONS ---
Assessment/Plan Assessment/Plan Hospital Course (Demo Recall) No acute changes, looks comfortable, no fevers overnight Blood culture on admission grew MDR A.b. Wound culture growing E. coli multidrug-resistant Acinetobacter Pseudomonas and coag negative staph species Indwelling's: PEG Antimicrobials: PO Vanco Physical examination: Fragile elderly man who is in no distress. Head atraumatic normocephalic neck is supple chest rise symmetrical breath sounds diminished bases. Heart: S1-S2. Abdomen soft bowel sounds present. Extremities without cyanosis. Skin: Patient has a large unstageable sacral wound Assessment: 1. MDR gram-negative zeinab bacteremia possibly secondary to urinary tract infection versus sacral decub vs pulmonary 2. Unstageable sacral decubitus ulcer, s/p debridement 3. Urinary tract infection per urinalysis 4. Diarrhea/hx C. difficile colitis 5. History of MRSA endocarditis, treated 6. History of CVA with chronic encephalopathy 7. Dysphagia status post PEG 8. Atrial fibrillation status post RVR Plan: Remains stable, pending dc arrangements Consultation Date/Type/Reason Admit Date/Time Aug 29, 2018 at 07:31 Initial Consult Date Type of Consult id Requesting Provider: SOTO SHERMAN Date/Time of Note DATE: 09/19/18 TIME: 12:27 Exam/Review of Systems Exam Vitals Vital Signs Date Temp Pulse Resp B/P (MAP) Pulse Ox O2 O2 Flow FiO2 Time Delivery Rate 09/19/18 97.9 94 19 87/53 (64) 99 Nasal 3.0 11:10 Cannula Intake and Output 09/18/18 09/18/18 09/19/18 1515:00 23:00 07:00 IntakeIntake Total 980 ml OutputOutput Total 900 ml 700 ml 1300 ml BalanceBalance -900 ml -700 ml -320 ml Results Result Diagram: 09/15/18 0904 09/15/18 0904 Medications Medication Current Medications IV Flush (NS 3 ml) 3 ml PER PROTOCOL IV ; Start 08/28/18 at 00:00 Ondansetron HCl (Zofran Inj) 4 mg Q6H PRN IV NAUSEA/VOMITING; Start 08/28/18 at 00:00 Acetaminophen (Tylenol Tab) 650 mg Q6H PRN PO .PAIN 1-3 OR TEMP; Start 08/28/18 at 00:00 Amiodarone HCl (Cordarone) 200 mg BID PO Last administered on 09/19/18 09:21; Admin Dose 200 MG; Start 08/28/18 at 00:00 Ipratropium [place] (Atrovent 0.02% (Neb)) 0.5 mg Q6H RESP THERAPY PRN INH SHOR TNESS OF BREATH; Start 08/28/18 at 00:00 Lansoprazole (Prevacid) 30 mg DAILY@0600 PO Last administered on 09/19/18 05:35; Admin Dose 30 MG; Start 08/28/18 at 06:00 Levalbuterol (Xopenex Hfa) 1 puff Q4H RESP THERAPY PRN INH WHEEZING AND SOB; Start 08/28/18 at 00:00 Miscellaneous Information (Pending Santyl Order For Wound Care) This patient dugan... PRN PRN XX WOUND CARE; Start 08/28/18 at 19:00 Multivitamins (Multivitamin) 30 ml DAILY GTB Last administered on 09/19/18 09:21; Admin Dose 30 ML; Start 08/30/18 at 09:00 Ascorbic Acid (Vitamin C) 500 mg DAILY GTB Last administered on 09/19/18 09:21 ; Admin Dose 500 MG; Start 08/30/18 at 09:00 Diltiazem HCl (Cardizem) 60 mg Q8 PO Last administered on 09/15/18 21:45; Admin Dose 60 MG; Start 08/31/18 at 22:00 Vancomycin HCl (Vancomycin Oral Syringe) 125 mg Q6 PO Last administered on 09/19/18 05:35; Admin Dose 125 MG; Start 09/01/18 at 18:00 Collagenase (Santyl) 1 applic DAILY TOP Last administered on 09/19/18 09:23; Admin Dose 1 APPLIC; Start 09/03/18 at 10:15 Heparin Sodium (Porcine) (Heparin (5000 Units/1ml)) 5,000 unit BID SC Last a dministered on 09/19/18 09:30; Admin Dose 5,000 UNIT; Start 09/04/18 at 21:00 Sodium Hypochlorite (Dakins Diluted (40)) 1 applic DAILY TP Last administered on 09/19/18 09:23; Admin Dose 1 APPLIC; Start 09/05/18 at 14:30 Furosemide (Lasix) 20 mg DAILY NGT Last administered on 09/19/18at 09:20; Admin Dose 20 MG; Start 09/06/18 at 09:00 Lactobacillus Acidophilus/ Rhamnosus (Culturelle) 1 cap BID PO Last administered on 09/19/18at 09:20; Admin Dose 1 CAP; Start 09/09/18 at 12:30 SANDER WILL NP Sep 19, 2018 12:28
--- NOTE | 2018-09-19 13:07 | CONS ---
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 Encephalopathy CVA, hemorrhagic History of nonsustained ventricular tachycardia Continue Cardizem and titrate as needed Antibiotics as per infectious disease on po lasix No AC as hx of hemorrhagic cva Consultation Date/Type/Reason Admit Date/Time Aug 29, 2018 at 07:31 Initial Consult Date 09/07/18 Type of Consult Cardiology Requesting Provider: SOTO SHERMAN Date/Time of Note DATE: 09/19/18 TIME: 13:06 24 HR Interval Summary Free Text/Dictation the patient wiht no change Exam/Review of Systems Vital Signs Vitals Vital Signs Date Temp Pulse Resp B/P (MAP) Pulse Ox O2 O2 Flow FiO2 Time Delivery Rate 09/19/18 97.9 94 19 87/53 (64) 99 Nasal 3.0 11:10 Cannula Intake and Output 09/18/18 09/18/18 09/19/18 1515:00 23:00 07:00 IntakeIntake Total 980 ml OutputOutput Total 900 ml 700 ml 1300 ml BalanceBalance -900 ml -700 ml -320 ml Labs Result Diagram: 09/15/1890309/15/18903 Medications Medications Current Medications IV Flush (NS 3 ml) 3 ml PER PROTOCOL IV ; Start 08/28/18 at 00:00 Ondansetron HCl (Zofran Inj) 4 mg Q6H PRN IV NAUSEA/VOMITING; Start 08/28/18 at 00:00 Acetaminophen (Tylenol Tab) 650 mg Q6H PRN PO .PAIN 1-3 OR TEMP; Start 08/28/18 at 00:00 Amiodarone HCl (Cordarone) 200 mg BID PO Last administered on 09/19/18at 09:21; Admin Dose 200 MG; Start 08/28/18 at 00:00 Ipratropium [place] (Atrovent 0.02% (Neb)) 0.5 mg Q6H RESP THERAPY PRN INH SHORTNESS OF BREATH; Start 08/28/18 at 00:00 Lansoprazole (Prevacid) 30 mg DAILY@0600 PO Last administered on 09/19/18at 05:35; Admin Dose 30 MG; Start 08/28/18 at 06:00 Levalbuterol (Xopenex Hfa) 1 puff Q4H RESP THERAPY PRN INH WHEEZING AND SOB; Start 08/28/18 at 00:00 Miscellaneous Information (Pending Santyl Order For Wound Care) This patient dugan... PRN PRN XX WOUND CARE; Start 08/28/18 at 19:00 Multivitamins (Multivitamin) 30 ml DAILY GTB Last administered on 09/19/18 09:21; Admin Dose 30 ML; Start 08/30/18 at 09:00 Ascorbic Acid (Vitamin C) 500 mg DAILY GTB Last administered on 09/19/18 09:21; Admin Dose 500 MG; Start 08/30/18 at 09:00 Diltiazem HCl (Cardizem) 60 mg Q8 PO Last administered on 09/15/18 21:45; Admin Dose 60 MG; Start 08/31/18 at 22:00 Vancomycin HCl (Vancomycin Oral Syringe) 125 mg Q6 PO Last administered on 09/19/18 12:38; Admin Dose 125 MG; Start 09/01/18 at 18:00 Collagenase (Santyl) 1 applic DAILY TOP Last administered on 09/19/18 09:23; Admin Dose 1 APPLIC; Start 09/03/18 at 10:15 Heparin Sodium (Porcine) (Heparin (5000 Units/1ml)) 5,000 unit BID SC Last administered on 09/19/18 09:30; Admin Dose 5,000 UNIT; Start 09/04/18 at 21:00 Sodium Hypochlorite (Dakins Diluted (1/40)) 1 applic DAILY TP Last administered on 09/19/18 09:23; Admin Dose 1 APPLIC; Start 09/05/18 at 14:30 Furosemide (Lasix) 20 mg DAILY NGT Last administered on 09/19/18 09:20; Admin Dose 20 MG; Start 09/06/18 at 09:00 Lactobacillus Acidophilus/ Rhamnosus (Culturelle) 1 cap BID PO Last administered on 09/19/18 09:20; Admin Dose 1 CAP; Start 09/09/18 at 12:30 SAMANTA DUFFY MD Sep 19, 2018 13:07
--- NOTE | 2018-09-19 14:20 | DS ---
Date/Time of Note Date/Time of Note DATE: 09/19/18 TIME: 14:17 Discharge Summary Admission/Discharge Info Admit Date/Time Aug 29, 2018 at 07:31 Discharge Date/Time September 19, 2018 Discharge Diagnosis 72-year-old male with atrial fibrillation, multifocal infarcts, dementia, chronic encephalopathy, psychosis/schizophrenia, MV endocarditis, dysphagia with G-tube who presents with: 1. Atrial fibrillation with RVR: rate controlled presently -Continue PO amiodarone and diltiazem 2. Healthcare associated pneumonia: X-ray earlier this admission showed worsening consolidation -Completed a course of antibiotics. 3. Bacteremia -patient found with MDR gram-negative zeinab bacteremia likely due to necrotic sacral decubitus ulcer. - Completed a 2 week course of meropenem, now off isolation per ID 4. Dysphagia with G-tube -For now continue tube feeds 5. History of recent MV endocarditis - s/p course of IV vancomycin, completed 08/27 6. Stage III sacral decub ulcer -Surgical sacral decub ulcer debridement per Dr. Cherry on 09/15 - Keep weight offloaded. - Prior to debridement a wound swab was done growing ESBL E Coli. This probably represents colonization and isolation protocol should be adjusted accordingly. Patient Condition: Good Hospital Course Patient is a 72-year-old male with atrial fibrillation, multifocal infarcts, dementia, chronic encephalopathy, psychosis/schizophrenia, MV endocarditis, dysphagia with G-tube who presents with A. fib with RVR as well as HCAP, sacral decubitus ulcer with bacteremia status post course of antibiotics for both pneumonia and bacteremia. Patient is also status post surgical debridement of ulcer with surgery, culture showed ESBL E. coli. Patient has completed antibiotics and isolation has been discontinued per ID. Patient stable for DC back to care home, on the day of discharge patient is stable. Home Meds Reported Medications Vancomycin Hcl (Vancocin) 1 Gm Soln, 750 MG IV, VIAL 07/25/18 Meropenem (Merrem) 1 Gm Vial, 1 GM IV, VIAL 07/25/18 Levalbuterol* (Xopenex* HFA) 15 Gm Inha, 2 PUFFS INH Q4H PRN for WHEEZING AND SOB, INHALER 07/25/18 Lansoprazole* (Lansoprazole*) 30 Mg Capsule., 30 MG PO DAILY, CAP 07/25/18 L Acidophil/B Lactis/B Longum (FLORAJEN3 CAPSULE) 460 Mg Capsule, 460 MG PO, CAP 07/25/18 Ipratropium [place] neb (Ipratropium [place] neb) 0.2 Mg/Ml Solution, 0.5 MG IH Q6H PRN for SHORTNESS OF BREATH, EA 07/25/18 Diltiazem Hcl* (Cardizem SR*) 60 Mg Capsr, 60 MG PO Q12, #60 CAP 07/25/18 Collagenase* (Santyl*) 30 Gm Oint..gm., 1 APPLIC TOP DAILY, #1 TUB 07/25/18 Balsam [place] Oil (Venelex Ointment) 60 Gm Oint..gm., 1 APPLIC TOP BID, #1 TUB 07/25/18 Amiodarone Hcl* (Amiodarone Hcl*) 200 Mg Tablet, 200 MG NGT BID, #60 TAB 07/25/18 Follow-up Plan Follow with physicians at custodial facility Primary Care Provider Care Physician No Primary Time spent on discharge: > 30 minutes AIDA BRANDT Sep 19, 2018 14:20
--- NOTE | 2018-09-19 22:32 | PN ---
Date/Time of Note Date/Time of Note DATE: 09/19/18 TIME: 22:32 Assessment/Plan Lines/Catheters IV Catheter Type (from [facility] Saline Lock [place] in Place (from [facility]): No Assessment/Plan Chief Complaint/Hosp Course 1. Sacral wound:+ Wound cultures; Status post bioethics meeting and debridement 09/15/2018 -DC okay from surgical standpoint with same wound care orders -further debridement as needed -continue local care -frequent turning and off-loading -low air loss mattress -vitamin c -short term zinc -optimize nutrition 2. Bacteremia: Repeat BC NGTD -Antibiotics per sensitivity> per ID -Follow cultures 3. Atrial fibrillation: controlled/uncontrolled rate -Rate control and anticoagulation per cards 4. UTI: -abx per sensitivity -frequent bladder emptying/cath care 5. Pneumonia with small bilateral pleural effusions -Pulmonary toilet -Antibiotics -Fluid management 6. Malnutrition: -Optimize nutrition 7. Dysphagia status post PEG -Tube feeds with aspiration precautions 8. Diastolic CHF with c preserved EF, history of MV endocarditis status post ant ibiotics -Per cardiology -Cardiac optimization 9. Liquid stools -stool studies if persistent Thank you Subjective 24 Hr Interval Summary No fevers, labored breathing, congested cough, vomting, diarrhea, sz, rash, wound bleeding. Appears comfortable. Nonverbal indicators of pain not present. Exam/Review of Systems Vital Signs Vitals Vital Signs Date Temp Pulse Resp B/P (MAP) Pulse Ox O2 O2 Flow FiO2 Time Delivery Rate 09/19/18 98.7 95 17 102/61 98 19:47 (75) 09/19/18 Room Air 15:02 09/19/18 3.0 11:10 Intake and Output 09/18/18 09/18/18 09/19/18 1515:00 23:00 07:00 IntakeIntake Total 980 ml OutputOutput Total 900 ml 700 ml 1300 ml BalanceBalance -900 ml -700 ml -320 ml Exam Free Text/Dictation Constitutional: alert, oriented ( x1-2; Forgetful), well developed, other (somnolent) Psych: nl mood/affect, anxiety (Minimal) Head: normocephalic, atraumatic Eyes: nl conjunctiva, EOMI, nl lids, nl sclera ENMT: nl external ears & nose, nl lips & teeth, mucosa pink and moist Neck: supple, non-tender; No jvd Respiratory: normal air movement; No congested cough, No labored breathing Cardiovascular: regular rate and rhythm, nl pulses Gastrointestinal: soft, non-tender, other (PEG), rectal tube (liquid stool) Genitourinary - Male: nl penis, nl scrotum Musculoskeletal: other (Muscle atrophy bilateral lower extremities); No nl extremities to inspection Extremities: normal pulses; No pitting pedal edema Neurological: nl speech; No nl strength (Generalized weakness) Skin: other (Sacral wound: Improved Slough, no bleeding, minimal drainage, no odor, minimal periwound erythema); No rash or lesions Results Result Diagram: 09/15/18 0904 09/15/18 0904 ANGIE GORDON MD Sep 19, 2018 22:32
[2018-09-20 00:09] VITALS: BP 101/60; PULSE 99; RESP 18
[2018-09-20] MEDS: VANCOMYCIN HCL 250 MG/5ML POSYG PO SCH ×4 (02:52→18:49)
[2018-09-20 03:54] VITALS: BP 97/57; PULSE 77; RESP 18
[2018-09-20] MEDS: DILTIAZEM 30 MG TAB PO SCH ×2 (05:35→13:04)
[2018-09-20] MEDS: LANSOPRAZOLE 30 MG CAP PO SCH (05:40)
[2018-09-20 07:29] VITALS: BP 111/58; PULSE 97; RESP 18
[2018-09-20] MEDS: LACTOBACILLUS RHAMNOSUS CAP PO SCH ×2 (08:23→20:19)
[2018-09-20] MEDS: MULTIVITAMINS 30 ML CUP GTB SCH (08:23)
[2018-09-20] MEDS: FUROSEMIDE 20 MG TAB NGT SCH (08:24)
[2018-09-20] MEDS: ASCORBIC ACID 500 MG TAB GTB SCH (08:24)
[2018-09-20] MEDS: AMIODARONE 200 MG TAB PO SCH ×2 (08:24→20:18)
[2018-09-20] MEDS: COLLAGENASE 5 GM (UD JAR) TOP SCH (08:24)
[2018-09-20] MEDS: BALSAM PERU/CASTOR OIL 60 GM TUBE TOP SCH (08:25)
[2018-09-20] MEDS: DAKINS 0.0125%(1/40) 473 ML SOLUTION TP SCH (08:25)
[2018-09-20] MEDS: HEPARIN 5,000 UNIT/1 ML VIAL SC SCH ×2 (08:33→20:37)
--- NOTE | 2018-09-20 09:27 | CONS ---
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 Encephalopathy CVA, hemorrhagic History of nonsustained ventricular tachycardia Continue Cardizem and titrate as needed Antibiotics as per infectious disease on po lasix No AC as hx of hemorrhagic cva Consultation Date/Type/Reason Admit Date/Time Aug 29, 2018 at 07:31 Initial Consult Date 09/07/18 Type of Consult Cardiology Requesting Provider: SOTO SHERMAN Date/Time of Note DATE: 09/20/18 TIME: 09:27 24 HR Interval Summary Free Text/Dictation the aoptient with no cahnge Exam/Review of Systems Vital Signs Vitals Vital Signs Date Temp Pulse Resp B/P (MAP) Pulse Ox O2 O2 Flow FiO2 Time Delivery Rate 09/20/18 98.1 97 18 111/58 100 Nasal 3.0 07:29 (75) Cannula Intake and Output 09/19/18 09/19/18 09/20/18 1515:00 23:00 07:00 IntakeIntake Total 1100 ml OutputOutput Total 1100 ml 500 ml BalanceBalance -1100 ml 600 ml Medications Medications Current Medications IV Flush (NS 3 ml) 3 ml PER PROTOCOL IV ; Start 08/28/18 at 00:00 Ondansetron HCl (Zofran Inj) 4 mg Q6H PRN IV NAUSEA/VOMITING; Start 08/28/18 at 00:00 Acetaminophen (Tylenol Tab) 650 mg Q6H PRN PO .PAIN 1-3 OR TEMP; Start 08/28/18 at 00:00 Amiodarone HCl (Cordarone) 200 mg BID PO Last administered on 09/20/18at 08:24; Admin Dose 200 MG; Start 08/28/18 at 00:00 Ipratropium [place] (Atrovent 0.02% (Neb)) 0.5 mg Q6H RESP THERAPY PRN INH SHORTNESS OF BREATH; Start 08/28/18 at 00:00 Lansoprazole (Prevacid) 30 mg DAILY@0600 PO Last administered on 09/20/18at 05:40; Admin Dose 30 MG; Start 08/28/18 at 06:00 Levalbuterol (Xopenex Hfa) 1 puff Q4H RESP THERAPY PRN INH WHEEZING AND SOB; Start 08/28/18 at 00:00 Miscellaneous Information (Pending Santyl Order For Wound Care) This patient dugan... PRN PRN XX WOUND CARE; Start 08/28/18 at 19:00 Multivitamins (Multivitamin) 30 ml DAILY GTB Last administered on 09/20/18 08:23; Admin Dose 30 ML; Start 08/30/18 at 09:00 Ascorbic Acid (Vitamin C) 500 mg DAILY GTB Last administered on 09/20/18 08:24; Admin Dose 500 MG; Start 08/30/18 at 09:00 Diltiazem HCl (Cardizem) 60 mg Q8 PO Last administered on 09/19/18 23:01; Admin Dose 60 MG; Start 08/31/18 at 22:00 Vancomycin HCl (Vancomycin Oral Syringe) 125 mg Q6 PO Last administered on 09/20/18 05:42; Admin Dose 125 MG; Start 09/01/18 at 18:00 Collagenase (Santyl) 1 applic DAILY TOP Last administered on 09/20/18 08:24; Admin Dose 1 APPLIC; Start 09/03/18 at 10:15 Heparin Sodium (Porcine) (Heparin (5000 Units/1ml)) 5,000 unit BID SC Last administered on 09/20/18 08:33; Admin Dose 5,000 UNIT; Start 09/04/18 at 21:00 Sodium Hypochlorite (Dakins Diluted (1/40)) 1 applic DAILY TP Last administered on 09/20/18 08:25; Admin Dose 1 APPLIC; Start 09/05/18 at 14:30 Furosemide (Lasix) 20 mg DAILY NGT Last administered on 09/20/18 08:24; Admin Dose 20 MG; Start 09/06/18 at 09:00 Lactobacillus Acidophilus/ Rhamnosus (Culturelle) 1 cap BID PO Last administered on 09/20/18 08:23; Admin Dose 1 CAP; Start 09/09/18 at 12:30 SAMANTA DUFFY MD Sep 20, 2018 09:27
[2018-09-20 11:16] VITALS: BP 99/51; PULSE 103; RESP 18
--- NOTE | 2018-09-20 12:48 | CONS ---
Assessment/Plan Assessment/Plan Hospital Course (Demo Recall) No acute changes, looks comfortable, no fevers overnight Blood culture on admission grew MDR A.b. Wound culture growing E. coli multidrug-resistant Acinetobacter Pseudomonas and coag negative staph species Indwelling's: PEG Antimicrobials: PO Vanco Physical examination: Fragile elderly man who is in no distress. Head atraumatic normocephalic neck is supple chest rise symmetrical breath sounds diminished bases. Heart: S1-S2. Abdomen soft bowel sounds present. Extremities without cyanosis. Skin: Patient has a large unstageable sacral wound Assessment: 1. MDR gram-negative zeinab bacteremia possibly secondary to urinary tract infection versus sacral decub vs pulmonary 2. Unstageable sacral decubitus ulcer, s/p debridement 3. Urinary tract infection per urinalysis 4. Diarrhea/hx C. difficile colitis 5. History of MRSA endocarditis, treated 6. History of CVA with chronic encephalopathy 7. Dysphagia status post PEG 8. Atrial fibrillation status post RVR Plan: Remains stable, pending dc arrangements Consultation Date/Type/Reason Admit Date/Time Aug 29, 2018 at 07:31 Initial Consult Date Type of Consult id Requesting Provider: SOTO SHERMAN Date/Time of Note DATE: 09/20/18 TIME: 12:48 Exam/Review of Systems Exam Vitals Vital Signs Date Temp Pulse Resp B/P (MAP) Pulse Ox O2 O2 Flow FiO2 Time Delivery Rate 09/20/18 2.0 11:23 09/20/18 98.1 103 18 99/51 (67) 100 Nasal 11:16 Cannula Intake and Output 09/19/18 09/19/18 09/20/18 1515:00 23:00 07:00 IntakeIntake Total 1100 ml OutputOutput Total 1100 ml 500 ml BalanceBalance -1100 ml 600 ml Medications Medication Current Medications IV Flush (NS 3 ml) 3 ml PER PROTOCOL IV ; Start 08/28/18 at 00:00 Ondansetron HCl (Zofran Inj) 4 mg Q6H PRN IV NAUSEA/VOMITING; Start 08/28/18 at 00:00 Acetaminophen (Tylenol Tab) 650 mg Q6H PRN PO .PAIN 1-3 OR TEMP; Start 08/28/18 at 00:00 Amiodarone HCl (Cordarone) 200 mg BID PO Last administered on 09/20/18at 08:24; Admin Dose 200 MG; Start 08/28/18 at 00:00 Ipratropium [place] (Atrovent 0.02% (Neb)) 0.5 mg Q6H RESP THERAPY PRN INH SHORTNESS OF BREATH; Start 08/28/18 at 00:00 Lansoprazole (Prevacid) 30 mg DAILY@0600 PO Last administered on 09/20/18 05:40; Admin Dose 30 MG; Start 08/28/18 at 06:00 Levalbuterol (Xopenex Hfa) 1 puff Q4H RESP THERAPY PRN INH WHEEZING AND SOB; Start 08/28/18 at 00:00 Miscellaneous Information (Pending Santyl Order For Wound Care) This patient dugan... PRN PRN XX WOUND CARE; Start 08/28/18 at 19:00 Multivitamins (Multivitamin) 30 ml DAILY GTB Last administered on 09/20/18 08:23; Admin Dose 30 ML; Start 08/30/18 at 09:00 Ascorbic Acid (Vitamin C) 500 mg DAILY GTB Last administered on 09/20/18 08:24; Admin Dose 500 MG; Start 08/30/18 at 09:00 Diltiazem HCl (Cardizem) 60 mg Q8 PO Last administered on 09/19/18 23:01; Admin Dose 60 MG; Start 08/31/18 at 22:00 Vancomycin HCl (Vancomycin Oral Syringe) 125 mg Q6 PO Last administered on 09/20/18 05:42; Admin Dose 125 MG; Start 09/01/18 at 18:00 Collagenase (Santyl) 1 applic DAILY TOP Last administered on 09/20/18 08:24; Admin Dose 1 APPLIC; Start 09/03/18 at 10:15 Heparin Sodium (Porcine) (Heparin (5000 Units/1ml)) 5,000 unit BID SC Last administered on 09/20/18 08:33; Admin Dose 5,000 UNIT; Start 09/04/18 at 21:00 Sodium Hypochlorite (Dakins Diluted (40)) 1 applic DAILY TP Last administered on 09/20/18 08:25; Admin Dose 1 APPLIC; Start 09/05/18 at 14:30 Furosemide (Lasix) 20 mg DAILY NGT Last administered on 09/20/18 08:24; Admin Dose 20 MG; Start 09/06/18 at 09:00 Lactobacillus Acidophilus/ Rhamnosus (Culturelle) 1 cap BID PO Last administe red on 09/20/18at 08:23; Admin Dose 1 CAP; Start 09/09/18 at 12:30 SANDER WILL NP Sep 20, 2018 12:48
--- NOTE | 2018-09-20 13:57 | PN ---
Date/Time of Note Date/Time of Note DATE: 09/20/18 TIME: 13:55 Assessment/Plan Lines/Catheters IV Catheter Type (from [facility]): Saline Lock Jimenez in Place (from [facility]): No Assessment/Plan Chief Complaint/Hosp Course 1. Sacral wound:+ Wound cultures; Status post bioethics meeting and debridement 09/15/2018 -DC okay from surgical standpoint with same wound care orders -further debridement as needed -continue local care -frequent turning and off-loading -low air loss mattress -vitamin c -short term zinc -optimize nutrition 2. Bacteremia: Repeat BC NGTD -Antibiotics per sensitivity> per ID -Follow cultures 3. Atrial fibrillation: controlled/uncontrolled rate -Rate control and anticoagulation per cards 4. UTI: -abx per sensitivity -frequent bladder emptying/cath care 5. Pneumonia with small bilateral pleural effusions -Pulmonary toilet -Antibiotics -Fluid management 6. Malnutrition: -Optimize nutrition 7. Dysphagia status post PEG -Tube feeds with aspiration precautions 8. Diastolic CHF with c preserved EF, history of MV endocarditis status post antibiotics -Per cardiology -Cardiac optimization 9. Liquid stools -stool studies if persistent Thank you. Patient seen and examined in collaboration with Dr. Serge Cherry. Subjective 24 Hr Interval Summary + liquid stool per rectal tube. No fevers, labored breathing, congested cough, vomiting,sz, rash, excessive wound drainage/odor. Appears comfortable. Nonverbal indicators of pain not present. Exam/Review of Systems Vital Signs Vitals Vital Signs Date Temp Pulse Resp B/P (MAP) Pulse Ox O2 O2 Flow FiO2 Time Delivery Rate 09/20/18 2.0 11:23 09/20/18 98.1 103 18 99/51 (67) 100 Nasal 11:16 Cannula Intake and Output 09/19/18 09/19/18 09/20/18 1515:00 23:00 07:00 IntakeIntake Total 1100 ml OutputOutput Total 1100 ml 500 ml BalanceBalance -1100 ml 600 ml Exam Free Text/Dictation Constitutional: alert, oriented ( x1-2; Forgetful), well developed, other (somnolent) Psych: nl mood/affect, anxiety (Minimal) Head: normocephalic, atraumatic Eyes: nl conjunctiva, EOMI, nl lids, nl sclera ENMT: nl external ears & nose, nl lips & teeth, mucosa pink and moist Neck: supple, non-tender; No jvd Respiratory: normal air movement; No congested cough, No labored breathing Cardiovascular: regular rate and rhythm, nl pulses Gastrointestinal: soft, non-tender, other (PEG), rectal tube (liquid stool) Genitourinary - Male: nl penis, nl scrotum Musculoskeletal: other (Muscle atrophy bilateral lower extremities); No nl extremities to inspection Extremities: normal pulses; No pitting pedal edema Neurological: nl speech; No nl strength (Generalized weakness) Skin: other (Sacral wound: Improved Slough, no bleeding, minimal drainage, no odor, minimal periwound erythema); No rash or lesions AUSTEN WESTON NP Sep 20, 2018 13:57
[2018-09-20 14:46] VITALS: BP 92/54; PULSE 79; RESP 19
--- NOTE | 2018-09-20 15:29 | DS ---
Date/Time of Note Date/Time of Note DATE: 09/20/18 TIME: 15:26 Discharge Summary Admission/Discharge Info Admit Date/Time Aug 29, 2018 at 07:31 Discharge Date/Time Discharge Diagnosis 72-year-old male with atrial fibrillation, multifocal infarcts, dementia, tax staff accountant john encephalopathy, psychosis/schizophrenia, MV endocarditis, dysphagia with G- tube who presents with: 1. Atrial fibrillation with RVR: rate controlled presently -Continue PO amiodarone and diltiazem 2. Healthcare associated pneumonia: X-ray earlier this admission showed worsening consolidation -Completed a course of antibiotics. 3. Bacteremia -patient found with MDR gram-negative zeinab bacteremia likely due to necrotic sacral decubitus ulcer. - Completed a 2 week course of meropenem, now off isolation per ID 4. Dysphagia with G-tube -For now continue tube feeds 5. History of recent MV endocarditis - s/p course of IV vancomycin, completed 08/27 6. Stage III sacral decub ulcer -Surgical sacral decub ulcer debridement per Dr. Cherry on 09/15 - Keep weight offloaded. - Prior to debridement a wound swab was done growing ESBL E Coli. This probably represents colonization and isolation protocol should be adjusted accordingly. Patient Condition: Stable Hospital Course Patient is a 72-year-old male with atrial fibrillation, multifocal infarcts, dementia, chronic encephalopathy, psychosis/schizophrenia, MV endocarditis, dysphagia with G-tube who presents with A. fib with RVR as well as HCAP, sacral decubitus ulcer with bacteremia status post course of antibiotics for both pneumonia and bacteremia. Patient is also status post surgical debridement of ulcer with surgery, culture showed ESBL E. coli. Patient has completed antibiotics and isolation has been discontinued per ID. Patient stable for DC back to detention, on the day of discharge patient is stable. There was no bed available in SNF on 09/19/2018. Patient has no change of status since yesterday. He is discharged to SNF today with same orders. Home Meds Reported Medications Vancomycin Hcl (Vancocin) 1 Gm Soln, 750 MG IV, VIAL 07/25/18 Meropenem (Merrem) 1 Gm Vial, 1 GM IV, VIAL 07/25/18 Levalbuterol* (Xopenex* HFA) 15 Gm Inha, 2 PUFFS INH Q4H PRN for WHEEZING AND SOB, INHALER 07/25/18 Lansoprazole* (Lansoprazole*) 30 Mg Capsule.dr, 30 MG PO DAILY, CAP 07/25/18 L Acidophil/B Lactis/B Longum (FLORAJEN3 CAPSULE) 460 Mg Capsule, 460 MG PO, CAP 07/25/18 Ipratropium [place] neb (Ipratropium [place] neb) 0.2 Mg/Ml Solution, 0.5 MG IH Q6H PRN for SHORTNESS OF BREATH, EA 07/25/18 Diltiazem Hcl* (Cardizem SR*) 60 Mg Capsr, 60 MG PO Q12, #60 CAP 07/25/18 Collagenase* (Santyl*) 30 Gm Oint..gm., 1 APPLIC TOP DAILY, #1 TUB 07/25/18 Balsam [place] Oil (Venelex Ointment) 60 Gm Oint..gm., 1 APPLIC TOP BID, #1 TUB 07/25/18 Amiodarone Hcl* (Amiodarone Hcl*) 200 Mg Tablet, 200 MG NGT BID, #60 TAB 07/25/18 Follow-up Plan Follow with physicians at [facility], PCP and cardiology, wound care Primary Care Provider Care Physician No Primary DEON HAN MD Sep 20, 2018 15:29
== END 2018-09-20 20:39 | DRG 853 ==
LOC: E/R 18:00 → 6WM 21:24 → EDBEDREQ 08-28 07:27 → OBSVTOIN 08-29 07:31
PROVIDERS: ADMIT Internal Medicine; ATTEND Internal Medicine
PROC: 0KBP0ZZ Excision of Left Hip Muscle, Open Approach (ICD-10-PCS; principal; 2018-09-15)
PROC: 0KBN0ZZ Excision of Right Hip Muscle, Open Approach (ICD-10-PCS; 2018-09-15)
DX: A41.50 Gram-negative sepsis, unspecified (principal); J18.9 Pneumonia, unspecified organism; L89.154 Pressure ulcer of sacral region, stage 4; E43 Unspecified severe protein-calorie malnutrition; I50.30 Unspecified diastolic (congestive) heart failure; Z68.1 Body mass index [BMI] 19.9 or less, adult; N39.0 Urinary tract infection, site not specified; G93.49 Other encephalopathy; D64.9 Anemia, unspecified; F03.90 Unspecified dementia, unspecified severity, without behavioral disturbance, psychotic disturbance, mood disturbance, and anxiety; F25.9 Schizoaffective disorder, unspecified; I48.91 Unspecified atrial fibrillation; I11.0 Hypertensive heart disease with heart failure; I69.398 Other sequelae of cerebral infarction; R19.7 Diarrhea, unspecified; R13.10 Dysphagia, unspecified; R53.81 Other malaise; Z93.1 Gastrostomy status; Z86.79 Personal history of other diseases of the circulatory system
CPT/HCPCS: 71045; 80048; 80053; 80061; 80076; 81001; 83036; 83605; 83735; 83880; 84100; 84443; 84484; 85025; 87070; 87075; 87086; 92610; 93005; 93306; 96374; 96375; 97163; 99217; G0378; A4310; J0692; J1644; J1940; J2185; J3370; J7030; J7060; J7120

== ENCOUNTER 2018-09-22 18:00 | Inpatient (IN) | payer MEDICARE ==
[~2018-09-22] VITALS: Ht 172.7 cm; Wt 57.0 kg
[2018-09-22] MEDS ORDERED: MEROPENEM 1 GM/50ML(PMX) 50 ML IVPB STA (18:31)
[2018-09-22] MEDS ORDERED: SODIUM CHLORIDE 0.9% 1L BAG IV* STA (18:31)
[2018-09-22] MEDS ORDERED: ACETAMINOPHEN 325 MG TAB PO STA (18:31)
--- NOTE | 2018-09-22 18:58 | ERD ---
ER Documentation Chief Complaint Chief Complaint tachycardia, low bp from [facility]; HPI 72-year-old male history of CHF, A. fib, currently being treated for H CAP with IV meropenem at a nursing facility was being transferred to the hospital but became tachycardic and hypotensive transiently in the private ambulance and was diverted to our ER. Patient is currently normotensive. Patient unable to give a history. History is given by EMS and patient's notes. ROS All systems reviewed and are negative except as per history of present illness. Medications Home Meds Reported Medications Vancomycin Hcl (Vancocin) 1 Gm Soln, 750 MG IV, VIAL 07/25/18 Meropenem (Merrem) 1 Gm Vial, 1 GM IV, VIAL 07/25/18 Levalbuterol* (Xopenex* HFA) 15 Gm Inha, 2 PUFFS INH Q4H PRN for WHEEZING AND SOB, INHALER 07/25/18 Lansoprazole* (Lansoprazole*) 30 Mg Capsule.dr, 30 MG PO DAILY, CAP 07/25/18 L Acidophil/B Lactis/B Longum (FLORAJEN3 CAPSULE) 460 Mg Capsule, 460 MG PO, CAP 07/25/18 Ipratropium [place] neb (Ipratropium [place] neb) 0.2 Mg/Ml Solution, 0.5 MG IH Q6H PRN for SHORTNESS OF BREATH, EA 07/25/18 Diltiazem Hcl* (Cardizem SR*) 60 Mg Capsr, 60 MG PO Q12, #60 CAP 07/25/18 Collagenase* (Santyl*) 30 Gm Oint..gm., 1 APPLIC TOP DAILY, #1 TUB 07/25/18 Balsam [place] Oil (Venelex Ointment) 60 Gm Oint..gm., 1 APPLIC TOP BID, #1 TUB 07/25/18 Amiodarone Hcl* (Amiodarone Hcl*) 200 Mg Tablet, 200 MG NGT BID, #60 TAB 07/25/18 Allergies Allergies: Coded Allergies: Penicillins (Verified Allergy, Unknown, 08/18/18) PMhx/Soc History of Surgery: Yes (gtube) Hx Psychiatric Problems: Yes (schizo, psychosis) Hx Miscellaneous Medical Probl: Yes (dementia) Smoking Status: Unknown if ever smoked Physical Exam Vitals Vital Signs Date Temp Pulse Resp B/P (MAP) Pulse Ox O2 O2 Flow FiO2 Time Delivery Rate 09/22/18 115 28 122/71 100 Non 10.0 19:57 (88) Rebreathe r 09/22/18 101.8 19:33 09/22/18 Non 15.0 18:39 Rebreathe r 09/22/18 Non 15 18:39 Rebreathe r 09/22/18 101.3 117 22 112/61 100 18:33 (78) Physical Exam Const: No acute distress Head: Atraumatic Eyes: Normal Conjunctiva ENT: Normal External Ears, Nose and Mouth. Neck: Full range of motion. No meningismus. Resp: Clear to auscultation bilaterally Cardio: Regular rate and rhythm, no murmurs Abd: G-tube clean dry intact. Abdomen soft nontender nondistended Skin: No petechiae or rashes Back: No midline or flank tenderness Ext: No cyanosis, or edema Neur: Awake and does not respond to questions Result Diagram: 09/22/18 1848 09/22/18 184 Results 24 hrs Laboratory Tests Test 09/22/18 18:43 09/22/18 18:48 09/22/18 19:44 POC Venous Lactate 3.5 mmol/L White Blood Count 11.5 10^3/ul Red Blood Count 3.46 10^6/ul Hemoglobin 9.9 g/dl Hematocrit 32.4 % Mean Corpuscular Volume 93.6 fl Mean Corpuscular Hemoglobin 28.6 pg Mean Corpuscular 30.6 g/dl Hemoglobin Concent Red Cell Distribution Width 16.8 % Platelet Count 285 10^3/UL Mean Platelet Volume 9.6 fl Immature Granulocytes % 0.600 % Neutrophils % 91.4 % Lymphocytes % 3.1 % Monocytes % 4.8 % Eosinophils % 0.0 % Basophils % 0.1 % Nucleated Red Blood Cells % 0.0 /100WBC Immature Granulocytes # 0.070 10^3/ul Neutrophils # 10.5 10^3/ul Lymphocytes # 0.4 10^3/ul Monocytes # 0.6 10^3/ul Eosinophils # 0.0 10^3/ul Basophils # 0.0 10^3/ul Nucleated Red Blood Cells # 0.0 10^3/ul Prothrombin Time 13.6 Sec Prothrombin Time Ratio 1.1 INR International 1.03 Normalized Ratio Activated Partial Thromboplast 38.0 Sec Time Sodium Level 138 mmol/L Potassium Level 4.8 mmol/L Chloride Level 97 mmol/L Carbon Dioxide Level 31 mmol/L Anion Gap 10 Blood Urea Nitrogen 36 mg/dl Creatinine 0.71 mg/dl Est Glomerular Filtrat > 60 mL/min Rate mL/min Glucose Level 163 mg/dl Calcium Level 9.6 mg/dl Total Bilirubin 0.6 mg/dl Direct Bilirubin 0.00 mg/dl Indirect Bilirubin 0.6 mg/dl Aspartate Amino Transf (AST/SGOT) 39 IU/L Alanine 59 IU/L Aminotransferase (ALT/SGPT) Alkaline Phosphatase 157 IU/L Troponin I 0.021 ng/ml Total Protein 7.5 g/dl Albumin 3.6 g/dl Globulin 3.90 g/dl Albumin/Globulin Ratio 0.92 Urine Color YELLOW Urine Clarity SLIGHTLY CLOUDY Urine pH 6.0 Urine Specific [place] 1.019 Urine Ketones NEGATIVE mg/dL Urine Nitrite NEGATIVE mg/dL Urine Bilirubin NEGATIVE mg/dL Urine Urobilinogen NEGATIVE mg/dL Urine Leukocyte Esterase NEGATIVE Mary/ul Urine Microscopic RBC 19 /HPF Urine Microscopic WBC 3 /HPF Urine Bacteria FEW /HPF Urine Hemoglobin NEGATIVE mg/dL Urine Glucose NEGATIVE mg/dL Urine Total Protein 1+ mg/dl Current Medications Medications Dose Sig/Carlos A Start Time Status Last (Trade) Ordered Route PRN Stop Time Admin Dose Reason Admin 650 mg ONCE STAT 09/22/18 DC Acetaminophen PO 18:31 09/22/18 (Tylenol 18:59 Tab) Sodium 1,980 ml BOLUS OVER 2 09/22/18 DC 09/22/18 Chloride HOURS STAT 18:31 09/22/18 19:07 (NS) IV* 18:35 50 ml @ ONCE STAT 09/22/18 DC 09/22/18 Meropenem/Sod 100 mls/hr IVPB 18:31 09/22/18 19:08 ium Chloride 19:00 650 mg ONCE ONCE 09/22/18 DC Acetaminophen [place] 19:00 09/22/18 (Tylenol 19:24 Supp) 650 mg ONCE ONCE 09/22/18 DC 09/22/18 Acetaminophen PO 19:30 09/22/18 19:33 (Tylenol 19:31 Tab) Ondansetron 4 mg ER BRIDGE 09/22/18 HCl (Zofran PRN IV 20:30 09/23/18 Inj) NAUSEA/VOMITI 20:29 NG 650 mg ER BRIDGE 09/22/18 Acetaminophen PRN PO 20:30 09/23/18 (Tylenol .MILD PAIN 20:29 Tab) 1-3 OR TEMP Procedures/MDM Admit MDM: Patient's infectious symptoms have not stabilized and the patient is at risk of rapid decompensation. The patient will be admitted for careful hydration, antibiotic therapy, and infectious source control. Severe Sepsis criteria: Infectious source: [Pulmonary] End organ damage indicated by: [] Lactate > 2.0 mmol/L Acute Resp Failure (sat < 92% w/o oxygen) Sepsis Management:] Within 3 hours of recognition: Blood cultures x 2 before broad-spectrum antibiotics: []Yes 30 ml/kg ideal body weight NS bolus [yes]Completed Initial lactate [3] Septic Shock Assessment: No septic shock Any lactic acid > 4.0 []No Persistent hypotension (SBP < 90 or 40 mmHg drop, MAP < 65) despite 30 mL/kg IV fluid bolus []No A focused sepsis perfusion/reperfusion reassessment examination was performed post 30ml/kg bolus @2041 , BP 107/65 HR 91 RR[16], Pox [] Critical Care Time: [31] minutes Treatments/Evaluations: Close monitoring and treatment of unstable vital signs, cardiorespiratory, and neurologic status, while maintaining tight balance of fluid, respiratory, and cardiac interventions. This includes the administration of emergency fluid management while maintaining close respiratory support as well as the provision of immediate and broad-spectrum antibiotic therapy, while performing a simultaneous assessment for possible sources in order to direct targeted therapy. This time includes discussing the case with the patient and the patients family. This time also includes the consideration for invasive and chemical support to prevent cardiopulmonary collapse. This time does not include all procedures stated elsewhere in this record. This time also includes reviewing old records, labs and radiological studies. This time includes examining and re-examining the patient. Additionally, this time also includes arranging care with admitting and consulting physicians. HOSEA FLOOD MD Sep 22, 2018 18:58
[2018-09-22] MEDS ORDERED: ACETAMINOPHEN 650 MG SUPP PR ONE (19:00)
[2018-09-22] MEDS ORDERED: ACETAMINOPHEN 325 MG TAB PO ONE (19:30)
[2018-09-22] MEDS ORDERED: ONDANSETRON 4 MG INJ IV PRN (20:30)
[2018-09-22] MEDS ORDERED: ACETAMINOPHEN 325 MG TAB PO PRN (20:30)
[2018-09-22 23:00] VITALS: Ht 172.7 cm; Wt 57.0 kg
[2018-09-23] MEDS ORDERED: ACETAMINOPHEN 325 MG TAB PO PRN (01:30)
[2018-09-23] MEDS ORDERED: LEVALBUTEROL (HFA) 15 GM INHALER INH PRN (01:30)
[2018-09-23] MEDS ORDERED: NACL 0.9% 3 ML SYG IV SCH (01:30)
[2018-09-23] MEDS ORDERED: ONDANSETRON 4 MG INJ IV PRN (01:30)
[2018-09-23] MEDS ORDERED: IPRATROPIUM (NEB) 0.5 MG/2.5 ML AMP NEB PRN (01:30)
[2018-09-23] MEDS ORDERED: PENDING SANTYL ORDER FOR WOUND CARE XX PRN (02:30)
--- NOTE | 2018-09-23 04:01 | HP ---
Date/Time of Note Date/Time of Note DATE: 09/23/18 TIME: 03:42 Assessment/Plan VTE Prophylaxis Pharmacological prophylaxis: heparin Lines/Catheters IV C[facility]ter Type ([facility] Peripheral IV Urinary Cath still in place: No Assessment/Plan Assessment/Plan 1. Sepsis, as evidenced by fever and tachycardia: -Possibly from residual pneumonia. Patient also has a history of stage IV sacral ulcer with necrosis status post excisional debridement. Patient also with a history of MV endocarditis and completed vancomycin less than a month ago. -Patient was just discharged from here 2 days ago and at that time he was treated for healthcare associated pneumonia and bacteremia -IV antibiotic per previous sensitivity -Follow-up culture results 2. Chronic encephalopathy, history of CVA: Supportive care 3. Atrial fibrillation: Continue PO amiodarone and diltiazem 4. Dysphagia: Status post G-tube 5. History of recent MV endocarditis - s/p course of IV vancomycin, completed 08/27 6. Stage III sacral decub ulcer -Surgical sacral decub ulcer debridement on 09/15 Result Diagram: 09/22/18 1848 09/22/18 1848 Results 24hrs Laboratory Tests Test 09/22/18 18:43 09/22/18 18:48 09/22/18 19:44 09/22/18 20:52 POC Venous Lactate 3.5 *H White Blood Count 11.5 #H Red Blood Count 3.46 L Hemoglobin 9.9 L Hematocrit 32.4 L Mean Corpuscular 93.6 Volume Mean Corpuscular 28.6 L Hemoglobin Mean Corpuscular 30.6 L Hemoglobin Concent Red Cell 16.8 H Distribution Width Platelet Count 285 Mean Platelet 9.6 Volume Immature 0.600 H Granulocytes % Neutrophils % 91.4 H Lymphocytes % 3.1 L Monocytes % 4.8 Eosinophils % 0.0 Basophils % 0.1 Nucleated Red 0.0 Blood Cells % Immature 0.070 H Granulocytes # Neutrophils # 10.5 H Lymphocytes # 0.4 L Monocytes # 0.6 Eosinophils # 0.0 Basophils # 0.0 Nucleated Red 0.0 Blood Cells # Prothrombin Time 13.6 Prothrombin Time 1.1 Ratio INR International 1.03 Normalized Ratio Activated 38.[address] Time Sodium Level 138 Potassium Level 4.8 Chloride Level 97 Carbon Dioxide 31 Level Anion Gap 10 Blood Urea 36 H Nitrogen Creatinine 0.71 Est Glomerular > 60 Filtrat Rate mL/min Glucose Level 163 Calcium Level 9.6 Total Bilirubin 0.6 Direct Bilirubin 0.00 Indirect Bilirubin 0.6 Aspartate Amino 39 Transf (AST/SGOT) Alanine 59 Aminotransferase ( ALT/SGPT) Alkaline 157 H Phosphatase Troponin I 0.021 Total Protein 7.5 Albumin 3.6 Globulin 3.90 H Albumin/Globulin 0.92 Ratio Urine Color YELLOW Urine Clarity SLIGHTLY CLOUDY A Urine pH 6.0 Urine Specific 1.019 [place] Urine Ketones NEGATIVE Urine Nitrite NEGATIVE Urine Bilirubin NEGATIVE Urine Urobilinogen NEGATIVE Urine Leukocyte NEGATIVE Esterase Urine Microscopic 19 H RBC Urine Microscopic 3 WBC Urine Bacteria FEW A Urine Hemoglobin NEGATIVE Urine Glucose NEGATIVE Urine Total 1+ H Protein Lactic Acid Level 1.2 Test 09/22/18 23:32 Lactic Acid Level 1.4 HPI/ROS Admit Date/Time Admit Date/Time Sep 22, 2018 at 20:04 Hx of Present Illness Patient is a 72-year-old male with atrial fibrillation, multifocal infarcts, dementia, chronic encephalopathy, psychosis/schizophrenia, MV endocarditis, dysphagia with G-tube, stage IV sacral decubitus ulcer was necrosis status post excisional debridement. Patient has been admitted here multiple times and a ctually was just discharged 2 days ago. During recent hospitalization he was treated for A-fib with RVR and healthcare associated pneumonia and bacteremia. Patient was brought to the ER for tachycardia and brief hypotension. Patient with chronic encephalopathy and as such unable to provide history. Information has been obtained from chart review and from the ER physician. Of note, patient was admitted by myself during his recent hospitalization. At the time of discharge, he was sent to [facility] with meropenem and vancomycin. When he presented to ER today, he was febrile with a temperature of 101.8, heart rate 110. Chest x-ray shows interval resolution of previously described mu ltilobar pneumonia with mild diffuse bilateral interstitial edema. UA is not consistent with UTI PMH/Family/Social Past Medical History Medical History: other (See HPI) Medications Current Medications Ondansetron HCl (Zofran Inj) 4 mg ER BRIDGE PRN IV NAUSEA/VOMITING; Start 09/22/18 at 20:30; Stop 09/23/18 at 20:29 Acetaminophen (Tylenol Tab) 650 mg ER BRIDGE PRN PO .MILD PAIN 1-3 OR TEMP; Start 09/22/18 at 20:30; Stop 09/23/18 at 20:29 IV Flush (NS 3 ml) 3 ml PER PROTOCOL IV ; Start 09/23/18 at 01:30 Ondansetron HCl (Zofran Inj) 4 mg Q6H PRN IV NAUSEA/VOMITING; Start 09/23/18 at 01:30 Acetaminophen (Tylenol Tab) 650 mg Q6H PRN PO .PAIN 1-3 OR TEMP; Start 09/23/18 at 01:30 Enoxaparin Sodium (Lovenox) 40 mg DAILY SC ; Start 09/23/18 at 09:00 Amiodarone HCl (Cordarone) 200 mg BID PO ; Start 09/23/18 at 09:00 Diltiazem HCl (Cardizem Sr) 60 mg Q12 PO ; Start 09/23/18 at 09:00 Ipratropium [place] (Atrovent 0.02% (Neb)) 0.5 mg Q6H PRN NEB SHORTNESS OF BREATH; Start 09/23/18 at 01:30 Levalbuterol (Xopenex Hfa) 1 puff Q4H PRN INH WHEEZING AND SOB; Start 09/23/18 at 01:30 Tobramycin 80 mg/ Sodium Chloride 52 ml @ 104 mls/hr Q8H IVPB ; Start 09/23/18 at 02:00 Pantoprazole (Protonix Tab) 40 mg DAILY@06 PO ; Start 09/23/18 at 06:00 Vancomycin/Sodium Chloride 250 ml @ 125 mls/hr Q24H IVPB ; Start 09/23/18 at 09 :00 Collagenase (Santyl) 1 applic DAILY TOP ; Start 09/23/18 at 09:00 Miscellaneous Information (Pending Santyl Order For Wound Care) This patient dugan... PRN PRN XX WOUND CARE; Start 09/23/18 at 02:30 Coded Allergies: Penicillins (Verified Allergy, Unknown, 08/18/18) Past Surgical History Past Surgical Hx: other (See HPI) Family History Significant Family History: other (Unknown) Social History Alcohol Use: other (Unknown) Smoking Status: Unknown if ever smoked Drug Use: other (Unknown) Exam/Review of Systems Vital Signs Vitals Vital Signs Date Temp Pulse Resp B/P (MAP) Pulse Ox O2 O2 Flow FiO2 Time Delivery Rate 09/22/18 Nasal 4.0 23:00 Cannula 09/22/18 98.8 101 22 112/59 100 22:31 (76) Exam Constitutional: other (No acute distress. Patient is not oriented. He attempted to say a few words) Head: other (No obvious deformity) Eyes: PERRL Respiratory: diminished breath sounds Cardiovascular: irregular rhythm, other (Tachycardic) Gastrointestinal: soft, other (G-tube in place) Extremities: normal pulses, other (Muscle wasting noted) PERLA NARANJO MD Sep 23, 2018 03:52
[2018-09-23] MEDS: PANTOPRAZOLE (EC) 40 MG TAB PO SCH (05:34)
[2018-09-23] MEDS: TOBRAMYCIN 80 MG in SOD CHLORIDE 0.9% 50 ML IVPB SCH ×3 (05:35→19:48)
[2018-09-23 06:45] VITALS: BP 93/56; PULSE 82; RESP 20
[2018-09-23 07:15] VITALS: BP 99/59; PULSE 93; RESP 20
[2018-09-23] MEDS: COLLAGENASE 5 GM (UD JAR) TOP SCH (08:53)
[2018-09-23] MEDS: VANCOMYCIN 1 GM 250 ML IVPB SCH (08:53)
[2018-09-23] MEDS: AMIODARONE 200 MG TAB PO SCH ×2 (08:53→21:02)
[2018-09-23] MEDS ORDERED: COLLAGENASE 30 GM TUBE TOP SCH (09:00)
[2018-09-23] MEDS ORDERED: VANCOMYCIN 1 GM INJ IV SCH (09:00)
[2018-09-23] MEDS ORDERED: VANCOMYCIN 750 MG (PMX) 250 ML IVPB SCH (09:00)
[2018-09-23] MEDS ORDERED: DILTIAZEM (SR) 60 MG CAP PO SCH (09:00)
[2018-09-23] MEDS: ENOXAPARIN 40 MG/0.4 ML SYG SC SCH (09:01)
[2018-09-23 11:15] VITALS: BP 93/54; PULSE 87; RESP 20
--- NOTE | 2018-09-23 12:36 | CONS ---
Assessment/Plan Assessment/Plan Hospital Course (Demo Recall) Atrial fibrillation with rapid ventricular rates, improved Labile blood pressure Diastolic congestive heart failure Preserved EF History of sepsis Encephalopathy CVA, hemorrhagic History of nonsustained ventricular tachycardia Patient transferred from [facility] secondary to hypotension and tachycardia. Blood pressure stable here in heart rate has improved Continue amiodarone, adjust dosing of Cardizem Antibiotics as per primary team Consultation Date/Type/Reason Admit Date/Time Sep 22, 2018 at 20:04 Type of Consult Cardiology Reason for Consultation Tachycardia Date/Time of Note DATE: 09/23/18 TIME: 12:31 Hx of Present Illness This is a 72-year-old male well-known to me from multiple previous admissions with past medical history of sepsis, atrial fibrillation, CVA who was brought back from [facility] secondary to tachycardia and hypotension. Patient with presumed sepsis. Patient able to respond to questions but are basic and he responds slowly. He denies any shortness of breath, chest pain or palpitations Unable to form the current time given patient's slow response to questions unable to answer more than basic questions Past Medical History Atrial fibrillation Labile blood pressure Sepsis CVA Home Meds Reported Medications Vancomycin Hcl (Vancocin) 1 Gm Soln, 750 MG IV, VIAL 07/25/18 Meropenem (Merrem) 1 Gm Vial, 1 GM IV, VIAL 07/25/18 Levalbuterol* (Xopenex* HFA) 15 Gm Inha, 2 PUFFS INH Q4H PRN for WHEEZING AND SOB, INHALER 07/25/18 Lansoprazole* (Lansoprazole*) 30 Mg Capsule.dr, 30 MG PO DAILY, CAP 07/25/18 L Acidophil/B Lactis/B Longum (FLORAJEN3 CAPSULE) 460 Mg Capsule, 460 MG PO, CAP 07/25/18 Ipratropium [place] neb (Ipratropium [place] neb) 0.2 Mg/Ml Solution, 0.5 MG IH Q6H PRN for SHORTNESS OF BREATH, EA 07/25/18 Diltiazem Hcl* (Cardizem SR*) 60 Mg Capsr, 60 MG PO Q12, #60 CAP 07/25/18 Collagenase* (Santyl*) 30 Gm Oint..gm., 1 APPLIC TOP DAILY, #1 TUB 07/25/18 [place] Oil (Venelex Ointment) 60 Gm Oint..gm., 1 APPLIC TOP BID, #1 TUB 07/25/18 Amiodarone Hcl* (Amiodarone Hcl*) 200 Mg Tablet, 200 MG NGT BID, #60 TAB 07/25/18 Medications Current Medications Ondansetron HCl (Zofran Inj) 4 mg ER BRIDGE PRN IV NAUSEA/VOMITING; Start 09/22/18 at 20:30; Stop 09/23/18 at 20:29 Acetaminophen (Tylenol Tab) 650 mg ER BRIDGE PRN PO .MILD PAIN 1-3 OR TEMP; Start 09/22/18 at 20:30; Stop 09/23/18 at 20:29 IV Flush (NS 3 ml) 3 ml PER PROTOCOL IV ; Start 09/23/18 at 01:30 Ondansetron HCl (Zofran Inj) 4 mg Q6H PRN IV NAUSEA/VOMITING; Start 09/23/18 at 01:30 Acetaminophen (Tylenol Tab) 650 mg Q6H PRN PO .PAIN 1-3 OR TEMP; Start 09/23/18 at 01:30 Enoxaparin Sodium (Lovenox) 40 mg DAILY SC Last administered on 09/23/18at 09:01; Admin Dose 40 MG; Start 09/23/18 at 09:00 Amiodarone HCl (Cordarone) 200 mg BID PO Last administered on 09/23/18at 08:53; Admin Dose 200 MG; Start 09/23/18 at 09:00 Diltiazem HCl (Cardizem Sr) 60 mg Q12 PO ; Start 09/23/18 at 09:00 Ipratropium [place] (Atrovent 0.02% (Neb)) 0.5 mg Q6H PRN NEB SHORTNESS OF BREATH; Start 09/23/18 at 01:30 Levalbuterol (Xopenex Hfa) 1 puff Q4H PRN INH WHEEZING AND SOB; Start 09/23/18 at 01:30 Pantoprazole (Protonix Tab) 40 mg DAILY@06 PO Last administered on 09/23/18at 05:34; Admin Dose 40 MG; Start 09/23/18 at 06:00 Collagenase (Santyl) 1 applic DAILY TOP Last administered on 09/23/18at 08:53; Admin Dose 1 APPLIC; Start 09/23/18 at 09:00 Miscellaneous Information ([facility]) This patient dugan... PRN PRN XX WOUND CARE; Start 09/23/18 at 02:30 Vancomycin HCl 250 ml @ 125 mls/hr Q24H IVPB Last administered on 09/23/18at 08:53; Admin Dose 125 MLS/HR; Start 09/23/18 at 09:00 Tobramycin 280 mg/ Dextrose 107 ml @ 103.75 mls/ hr Q36H IVPB ; Start 09/23/18 a t 18:00 Allergies: Coded Allergies: Penicillins (Verified Allergy, Unknown, 08/18/18) Past Surgical History Past Surgical Hx: other (Including but not limited to PEG placement, debridement) Family History Significant Family History: no pertinent family hx Social History Alcohol Use: none Smoking Status: Unknown if ever smoked Drug Use: other (Unknown) Exam/Review of Systems Vital Signs Vitals Vital Signs Date Temp Pulse Resp B/P (MAP) Pulse Ox O2 O2 Flow FiO2 Time Delivery Rate 09/23/18 98.0 87 20 93/54 (67) 96 Nasal 11:15 Cannula 09/23/18 4.0 08:00 Intake and Output 09/22/18 09/22/18 09/23/18 1515:00 23:00 07:00 IntakeIntake Total 52 ml BalanceBalance 52 ml Exam Exam Awake, answers some questions, no apparent distress Head: normocephalic Respiratory: other (Coarse breath sounds bilaterally, no wheezing) Cardiovascular: irregular rhythm (S1-S2 heard) Gastrointestinal: soft, non-tender, bowel sounds Extremities: other (No edema) Labs Result Diagram: 09/23/18 0635 09/23/18 0635 Results 24hrs Laboratory Tests Test 09/22/18 18:43 09/22/18 18:48 09/22/18 19:44 09/22/18 20:52 POC Venous Lactate 3.5 *H White Blood Count 11.5 #H Red Blood Count 3.46 L Hemoglobin 9.9 L Hematocrit 32.4 L Mean Corpuscular 93.6 Volume Mean Corpuscular 28.6 L Hemoglobin Mean Corpuscular 30.6 L Hemoglobin Concent Red Cell 16.8 H Distribution Width Platelet Count 285 Mean Platelet 9.6 Volume Immature 0.600 H Granulocytes % Neutrophils % 91.4 H Lymphocytes % 3.1 L Monocytes % 4.8 Eosinophils % 0.0 Basophils % 0.1 Nucleated Red 0.0 Blood Cells % Immature 0.070 H Granulocytes # Neutrophils # 10.5 H Lymphocytes # 0.4 L Monocytes # 0.6 Eosinophils # 0.0 Basophils # 0.0 Nucleated Red 0.0 Blood Cells # Prothrombin Time 13.6 Prothrombin Time 1.1 Ratio INR International 1.03 Normalized Ratio Activated 38.[address] Time Sodium Level 138 Potassium Level 4.8 Chloride Level 97 Carbon Dioxide 31 Level Anion Gap 10 Blood Urea 36 H Nitrogen Creatinine 0.71 Est Glomerular > 60 Filtrat Rate mL/min Glucose Level 163 Calcium Level 9.6 Total Bilirubin 0.6 Direct Bilirubin 0.00 Indirect Bilirubin 0.6 Aspartate Amino 39 Transf (AST/SGOT) Alanine 59 Aminotransferase ( ALT/SGPT) Alkaline 157 H Phosphatase Troponin I 0.021 Total Protein 7.5 Albumin 3.6 Globulin 3.90 H Albumin/Globulin 0.92 Ratio Urine Color YELLOW Urine Clarity SLIGHTLY CLOUDY A Urine pH 6.0 Urine Specific 1.019 [place] Urine Ketones NEGATIVE Urine Nitrite NEGATIVE Urine Bilirubin NEGATIVE Urine Urobilinogen NEGATIVE Urine Leukocyte NEGATIVE Esterase Urine Microscopic 19 H RBC Urine Microscopic 3 WBC Urine Bacteria FEW A Urine Hemoglobin NEGATIVE Urine Glucose NEGATIVE Urine Total 1+ H Protein Lactic Acid Level 1.2 Test 09/22/18 23:32 09/23/18 06:35 Lactic Acid Level 1.4 White Blood Count 10.8 Red Blood Count 2.89 L Hemoglobin 8.3 L Hematocrit 27.1 L Mean Corpuscular 93.8 Volume Mean Corpuscular 28.7 L Hemoglobin Mean Corpuscular 30.6 L Hemoglobin Concent Red Cell 16.5 H Distribution Width Platelet Count 225 # Mean Platelet 9.8 Volume Immature 0.700 H Granulocytes % Neutrophils % 86.1 H Lymphocytes % 6.3 L Monocytes % 6.5 Eosinophils % 0.2 Basophils % 0.2 Nucleated Red 0.0 Blood Cells % Immature 0.070 H Granulocytes # Neutrophils # 9.3 H Lymphocytes # 0.7 L Monocytes # 0.7 Eosinophils # 0.0 Basophils # 0.0 Nucleated Red 0.0 Blood Cells # Sodium Level 139 Potassium Level 4.0 Chloride Level 105 Carbon Dioxide 28 Level Anion Gap 6 Blood Urea 26 H Nitrogen Creatinine 0.59 L Est Glomerular > 60 Filtrat Rate mL/min Glucose Level 98 # Calcium Level 9.2 Magnesium Level 2.0 Total Bilirubin 0.6 Direct Bilirubin 0.00 Indirect Bilirubin 0.6 Aspartate Amino 30 Transf (AST/SGOT) Alanine 44 Aminotransferase ( ALT/SGPT) Alkaline 115 Phosphatase Total Protein 6.3 # Albumin 2.9 L Globulin 3.40 H Albumin/Globulin 0.85 Ratio Imaging Imaging ECG atrial fibrillation at 107 bpm, normal QRS duration, nonspecific ST abnormalities Medications Medications Current Medications Ondansetron HCl (Zofran Inj) 4 mg ER BRIDGE PRN IV NAUSEA/VOMITING; Start 09/22/18 at 20:30; Stop 09/23/18 at 20:29 Acetaminophen (Tylenol Tab) 650 mg ER BRIDGE PRN PO .MILD PAIN 1-3 OR TEMP; Start 09/22/18 at 20:30; Stop 09/23/18 at 20:29 IV Flush (NS 3 ml) 3 ml PER PROTOCOL IV ; Start 09/23/18 at 01:30 Ondansetron HCl (Zofran Inj) 4 mg Q6H PRN IV NAUSEA/VOMITING; Start 09/23/18 at 01:30 Acetaminophen (Tylenol Tab) 650 mg Q6H PRN PO .PAIN 1-3 OR TEMP; Start 09/23/18 at 01:30 Enoxaparin Sodium (Lovenox) 40 mg DAILY SC Last administered on 09/23/18at 09:01; Admin Dose 40 MG; Start 09/23/18 at 09:00 Amiodarone HCl (Cordarone) 200 mg BID PO Last administered on 09/23/18at 08:53; Admin Dose 200 MG; Start 09/23/18 at 09:00 Diltiazem HCl (Cardizem Sr) 60 mg Q12 PO ; Start 09/23/18 at 09:00 Ipratropium [place] (Atrovent 0.02% (Neb)) 0.5 mg Q6H PRN NEB SHORTNESS OF BREATH; Start 09/23/18 at 01:30 Levalbuterol (Xopenex Hfa) 1 puff Q4H PRN INH WHEEZING AND SOB; Start 09/23/18 at 01:30 Pantoprazole (Protonix Tab) 40 mg DAILY@06 PO Last administered on 09/23/18at 05:34; Admin Dose 40 MG; Start 09/23/18 at 06:00 Collagenase (Santyl) 1 applic DAILY TOP Last administered on 09/23/18at 08:53; Admin Dose 1 APPLIC; Start 09/23/18 at 09:00 Miscellaneous Information (Pending Santyl Order For Wound Care) This patient dugan... PRN PRN XX WOUND CARE; Start 09/23/18 at 02:30 Vancomycin HCl 250 ml @ 125 mls/hr Q24H IVPB Last administered on 09/23/18at 08:53; Admin Dose 125 MLS/HR; Start 09/23/18 at 09:00 Tobramycin 280 mg/ Dextrose 107 ml @ 103.75 mls/ hr Q36H IVPB ; Start 09/23/18 at 18:00 Charan Cottrell DO Sep 23, 2018 12:36
[2018-09-23] MEDS: DILTIAZEM 30 MG TAB PO SCH ×2 (13:30→21:02)
[2018-09-23 14:58] VITALS: BP 103/63; PULSE 111; RESP 20
--- NOTE | 2018-09-23 15:59 | CONS ---
Assessment/Plan Assessment/Plan Hospital Course (Demo Recall) Patient was readmitted yesterday for concern of sepsis currently in no distress afebrile. T-max yesterday was 101.8. WBC 10.8 platelets 225 neutrophils 86.1 BUN 26 creatinine 0.59 Antimicrobials: Tobramycin, vancomycin Allergies: Penicillin Indwelling's: PEG Physical examination: Fragile elderly man who is in no distress. Head atraumatic normocephalic neck is supple chest rise symmetrical breath sounds diminished bases. Heart: S1-S2. Abdomen soft bowel sounds present. Extremitie s without cyanosis. Skin: Patient has a large unstageable sacral wound Assessment: 1. Sepsis with fevers and leukocytosis, present on admission 2. Unstageable sacral decubitus ulcer status post debridement last week 3. Status post bacteremia 4. Status post UTI 5. History of recent C. difficile colitis 6. History of MRSA endocarditis, treated 7. History of CVA with chronic encephalopathy 8. Dysphagia status post PEG 9. Atrial fibrillation Plan: Clinically stable and afebrile, continue antibiotics, local wound care and await for cultures Consultation Date/Type/Reason Admit Date/Time Sep 22, 2018 at 20:04 Initial Consult Date Type of Consult id Date/Time of Note DATE: 09/23/18 TIME: 15:57 Exam/Review of Systems Exam Vitals Vital Signs Date Temp Pulse Resp B/P (MAP) Pulse Ox O2 O2 Flow FiO2 Time Delivery Rate 09/23/18 98.0 111 20 103/63 99 Nasal 14:58 (76) Cannula 09/23/18 4.0 14:53 Intake and Output 09/22/18 09/22/18 09/23/18 1515:00 23:00 07:00 IntakeIntake Total 52 ml BalanceBalance 52 ml Results Result Diagram: 09/23/18 0635 09/23/18 0635 Results 24hrs Laboratory Tests Test 09/22/18 18:43 09/22/18 18:48 09/22/18 19:44 09/22/18 20:52 POC Venous Lactate 3.5 *H White Blood Count 11.5 #H Red Blood Count 3.46 L Hemoglobin 9.9 L Hematocrit 32.4 L Mean Corpuscular 93.6 Volume Mean Corpuscular 28.6 L Hemoglobin Mean Corpuscular 30.6 L Hemoglobin Concent Red Cell 16.8 H Distribution Width Platelet Count 285 Mean Platelet 9.6 Volume Immature 0.600 H Granulocytes % Neutrophils % 91.4 H Lymphocytes % 3.1 L Monocytes % 4.8 Eosinophils % 0.0 Basophils % 0.1 Nucleated Red 0.0 Blood Cells % Immature 0.070 H Granulocytes # Neutrophils # 10.5 H Lymphocytes # 0.4 L Monocytes # 0.6 Eosinophils # 0.0 Basophils # 0.0 Nucleated Red 0.0 Blood Cells # Prothrombin Time 13.6 Prothrombin Time 1.1 Ratio INR International 1.03 Normalized Ratio Activated 38.[address] Time Sodium Level 138 Potassium Level 4.8 Chloride Level 97 Carbon Dioxide 31 Level Anion Gap 10 Blood Urea 36 H Nitrogen Creatinine 0.71 Est Glomerular > 60 Filtrat Rate mL/min Glucose Level 163 Calcium Level 9.6 Total Bilirubin 0.6 Direct Bilirubin 0.00 Indirect Bilirubin 0.6 Aspartate Amino 39 Transf (AST/SGOT) Alanine 59 Aminotransferase ( ALT/SGPT) Alkaline 157 H Phosphatase Troponin I 0.021 Total Protein 7.5 Albumin 3.6 Globulin 3.90 H Albumin/Globulin 0.92 Ratio Urine Color YELLOW Urine Clarity SLIGHTLY CLOUDY A Urine pH 6.0 Urine Specific 1.019 [place] Urine Ketones NEGATIVE Urine Nitrite NEGATIVE Urine Bilirubin NEGATIVE Urine Urobilinogen NEGATIVE Urine Leukocyte NEGATIVE Esterase Urine Microscopic 19 H RBC Urine Microscopic 3 WBC Urine Bacteria FEW A Urine Hemoglobin NEGATIVE Urine Glucose NEGATIVE Urine Total 1+ H Protein Lactic Acid Level 1.2 Test 09/22/18 23:32 09/23/18 06:35 Lactic Acid Level 1.4 White Blood Count 10.8 Red Blood Count 2.89 L Hemoglobin 8.3 L Hematocrit 27.1 L Mean Corpuscular 93.8 Volume Mean Corpuscular 28.7 L Hemoglobin Mean Corpuscular 30.6 L Hemoglobin Concent Red Cell 16.5 H Distribution Width Platelet Count 225 # Mean Platelet 9.8 Volume Immature 0.700 H Granulocytes % Neutrophils % 86.1 H Lymphocytes % 6.3 L Monocytes % 6.5 Eosinophils % 0.2 Basophils % 0.2 Nucleated Red 0.0 Blood Cells % Immature 0.070 H Granulocytes # Neutrophils # 9.3 H Lymphocytes # 0.7 L Monocytes # 0.7 Eosinophils # 0.0 Basophils # 0.0 Nucleated Red 0.0 Blood Cells # Sodium Level 139 Potassium Level 4.0 Chloride Level 105 Carbon Dioxide 28 Level Anion Gap 6 Blood Urea 26 H Nitrogen Creatinine 0.59 L Est Glomerular > 60 Filtrat Rate mL/min Glucose Level 98 # Calcium Level 9.2 Magnesium Level 2.0 Total Bilirubin 0.6 Direct Bilirubin 0.00 Indirect Bilirubin 0.6 Aspartate Amino 30 Transf (AST/SGOT) Alanine 44 Aminotransferase ( ALT/SGPT) Alkaline 115 Phosphatase Total Protein 6.3 # Albumin 2.9 L Globulin 3.40 H Albumin/Globulin 0.85 Ratio Medications Medication Current Medications IV Flush (NS 3 ml) 3 ml PER PROTOCOL IV ; Start 09/23/18 at 01:30 Ondansetron HCl (Zofran Inj) 4 mg Q6H PRN IV NAUSEA/VOMITING; Start 09/23/18 at 01:30 Acetaminophen (Tylenol Tab) 650 mg Q6H PRN PO .PAIN 1-3 OR TEMP; Start 09/23/18 at 01:30 Enoxaparin Sodium (Lovenox) 40 mg DAILY SC Last administered on 09/23/18at 09:01; Admin Dose 40 MG; Start 09/23/18 at 09:00 Amiodarone HCl (Cordarone) 200 mg BID PO Last administered on 09/23/18 08:53; Admin Dose 200 MG; Start 09/23/18 at 09:00 Ipratropium [place] (Atrovent 0.02% (Neb)) 0.5 mg Q6H PRN NEB SHORTNESS OF BREATH; Start 09/23/18 at 01:30 Levalbuterol (Xopenex Hfa) 1 puff Q4H PRN INH WHEEZING AND SOB; Start 09/23/18 at 01:30 Pantoprazole (Protonix Tab) 40 mg DAILY@06 PO Last administered on 09/23/18at 05:34; Admin Dose 40 MG; Start 09/23/18 at 06:00 Collagenase (Santyl) 1 applic DAILY TOP Last administered on 09/23/18 08:53; Admin Dose 1 APPLIC; Start 09/23/18 at 09:00 Miscellaneous Information (Pending Santyl Order For Wound Care) This patient dugan... PRN PRN XX WOUND CARE; Start 09/23/18 at 02:30 Vancomycin HCl 250 ml @ 125 mls/hr Q24H IVPB Last administered on 8/2/19at 08:53; Admin Dose 125 MLS/HR; Start 09/23/18 at 09:00 Tobramycin 280 mg/ Sodium Chloride 107 ml @ 103.75 mls/ hr Q36H IVPB ; Start 09/23/18 at 18:00 Diltiazem HCl (Cardizem) 30 mg Q8 PO ; Start 09/23/18 at 14:00 Miscellaneous Information (*Rx Drug Level Order Reminder*) RANDOM TOBRA 0400 ONCE XX ; Start 09/24/18 at 04:00; Stop 09/24/18 at 04:01 SANDER PRESLEY NP Sep 23, 2018 15:59
[2018-09-23] MEDS ORDERED: TOBRAMYCIN 80 MG in SOD CHLORIDE 0.9% 50 ML IVPB SCH (17:00)
[2018-09-23] MEDS ORDERED: TOBRAMYCIN IVPB SCH (18:00)
[2018-09-23] MEDS ORDERED: SOD CHLORIDE 0.9% IVPB SCH (18:00)
--- NOTE | 2018-09-23 19:19 | PN ---
Date/Time of Note Date/Time of Note DATE: 09/23/18 TIME: 19:02 Assessment/Plan VTE Prophylaxis Risk score (from [facility] [place])>0 risk: 4 SCD applied (from [facility] [place]): Yes Pharmacological prophylaxis: LMWH Lines/Catheters IV Catheter Type ([facility]): Peripheral IV Urinary Cath still in place: No Assessment/Plan Hospital Course S: patient non verbal Objective : Constitutional: other (No acute distress. Patient is not oriented. He attempted to say a few words) Head: other (No obvious deformity) Eyes: PERRL Respiratory: diminished breath sounds Cardiovascular: irregular rhythm, other (Tachycardic) Gastrointestinal: soft, other (G-tube in place) Extremities: normal pulses, other (Muscle wasting noted) 72-year-old male with atrial fibrillation, multifocal infarcts, dementia, chronic encephalopathy, psychosis/schizophrenia, MV endocarditis, dysphagia with G-tube, stage IV sacral decubitus ulcer was necrosis status post excisional debr idement. Patient has been admitted here multiple times and actually was just discharged 2 days ago. During recent hospitalization he was treated for A-fib with RVR and healthcare associated pneumonia and bacteremia. Patient was brought to the ER for fever, tachycardia and brief hypotension. He is admitted and managed as follows : 1. Sepsis, as evidenced by fever and tachycardia: --Source unclear at this time. CXR showing resolution of prev multifoal PNA. Patient also has a history of stage IV sacral ulcer with necrosis status post excisional debridement. Patient also with a history of MV endocarditis and completed vancomycin less than a month ago. -Patient was just discharged from here 2 days ago and at that time he was treated for healthcare associated pneumonia and bacteremia -Empiric IV antibiotic per previous sensitivity -Follow-up culture results, ID consult 2. Chronic encephalopathy, history of CVA: Supportive care, palliative care ? 3. Atrial fibrillation: rate controlled, Continue PO amiodarone and diltiazem 4. Dysphagia: Status post G-tube, resume G-tube feedings 5. History of recent MV endocarditis - s/p course of IV vancomycin, completed 08/27 6. Stage III sacral decub ulcer -Surgical sacral decub ulcer debridement on 09/15 Result Diagram: 09/23/18 0635 09/23/18 0635 Results 24hrs Laboratory Tests Test 09/22/18 19:44 09/22/18 20:52 09/22/18 23:32 09/23/18 06:35 Urine Color YELLOW Urine Clarity SLIGHTLY CLOUDY A Urine pH 6.0 Urine Specific 1.019 [place] Urine Ketones NEGATIVE Urine Nitrite NEGATIVE Urine Bilirubin NEGATIVE Urine Urobilinogen NEGATIVE Urine Leukocyte NEGATIVE Esterase Urine Microscopic 19 H RBC Urine Microscopic 3 WBC Urine Bacteria FEW A Urine Hemoglobin NEGATIVE Urine Glucose NEGATIVE Urine Total 1+ H Protein Lactic Acid Level 1.2 1.4 White Blood Count 10.8 Red Blood Count 2.89 L Hemoglobin 8.3 L Hematocrit 27.1 L Mean Corpuscular 93.8 Volume Mean Corpuscular 28.7 L Hemoglobin Mean Corpuscular 30.6 L Hemoglobin Concent Red Cell 16.5 H Distribution Width Platelet Count 225 # Mean Platelet 9.8 Volume Immature 0.700 H Granulocytes % Neutrophils % 86.1 H Lymphocytes % 6.3 L Monocytes % 6.5 Eosinophils % 0.2 Basophils % 0.2 Nucleated Red 0.0 Blood Cells % Immature 0.070 H Granulocytes # Neutrophils # 9.3 H Lymphocytes # 0.7 L Monocytes # 0.7 Eosinophils # 0.0 Basophils # 0.0 Nucleated Red 0.0 Blood Cells # Sodium Level 139 Potassium Level 4.0 Chloride Level 105 Carbon Dioxide 28 Level Anion Gap 6 Blood Urea 26 H Nitrogen Creatinine 0.59 L Est Glomerular > 60 Filtrat Rate mL/min Glucose Level 98 # Calcium Level 9.2 Magnesium Level 2.0 Total Bilirubin 0.6 Direct Bilirubin 0.00 Indirect Bilirubin 0.6 Aspartate Amino 30 Transf (AST/SGOT) Alanine 44 Aminotransferase ( ALT/SGPT) Alkaline 115 Phosphatase Total Protein 6.3 # Albumin 2.9 L Globulin 3.40 H Albumin/Globulin 0.85 Ratio Exam/Review of Systems Exam Vitals Vital Signs Date Temp Pulse Resp B/P (MAP) Pulse Ox O2 O2 Flow FiO2 Time Delivery Rate 09/23/18 98.0 111 20 103/63 99 Nasal 14:58 (76) Cannula 09/23/18 4.0 14:53 Intake and Output 09/22/18 09/22/18 09/23/18 1515:00 23:00 07:00 IntakeIntake Total 52 ml BalanceBalance 52 ml Results Results 24hrs Laboratory Tests Test 09/22/18 19:44 09/22/18 20:52 09/22/18 23:32 09/23/18 06:35 Urine Color YELLOW Urine Clarity SLIGHTLY CLOUDY A Urine pH 6.0 Urine Specific 1.019 [place] Urine Ketones NEGATIVE Urine Nitrite NEGATIVE Urine Bilirubin NEGATIVE Urine Urobilinogen NEGATIVE Urine Leukocyte NEGATIVE Esterase Urine Microscopic 19 H RBC Urine Microscopic 3 WBC Urine Bacteria FEW A Urine Hemoglobin NEGATIVE Urine Glucose NEGATIVE Urine Total 1+ H Protein Lactic Acid Level 1.2 1.4 White Blood Count 10.8 Red Blood Count 2.89 L Hemoglobin 8.3 L Hematocrit 27.1 L Mean Corpuscular 93.8 Volume Mean Corpuscular 28.7 L Hemoglobin Mean Corpuscular 30.6 L Hemoglobin Concent Red Cell 16.5 H Distribution Width Platelet Count 225 # Mean Platelet 9.8 Volume Immature 0.700 H Granulocytes % Neutrophils % 86.1 H Lymphocytes % 6.3 L Monocytes % 6.5 Eosinophils % 0.2 Basophils % 0.2 Nucleated Red 0.0 Blood Cells % Immature 0.070 H Granulocytes # Neutrophils # 9.3 H Lymphocytes # 0.7 L Monocytes # 0.7 Eosinophils # 0.0 Basophils # 0.0 Nucleated Red 0.0 Blood Cells # Sodium Level 139 Potassium Level 4.0 Chloride Level 105 Carbon Dioxide 28 Level Anion Gap 6 Blood Urea 26 H Nitrogen Creatinine 0.59 L Est Glomerular > 60 Filtrat Rate mL/min Glucose Level 98 # Calcium Level 9.2 Magnesium Level 2.0 Total Bilirubin 0.6 Direct Bilirubin 0.00 Indirect Bilirubin 0.6 Aspartate Amino 30 Transf (AST/SGOT) Alanine 44 Aminotransferase ( ALT/SGPT) Alkaline 115 Phosphatase Total Protein 6.3 # Albumin 2.9 L Globulin 3.40 H Albumin/Globulin 0.85 Ratio Medications Medication Current Medications IV Flush (NS 3 ml) 3 ml PER PROTOCOL IV ; Start 09/23/18 at 01:30 Ondansetron HCl (Zofran Inj) 4 mg Q6H PRN IV NAUSEA/VOMITING; Start 09/23/18 at 01:30 Acetaminophen (Tylenol Tab) 650 mg Q6H PRN PO .PAIN 1-3 OR TEMP; Start 09/23/18 at 01:30 Enoxaparin Sodium (Lovenox) 40 mg DAILY SC Last administered on 09/23/18at 09:01; Admin Dose 40 MG; Start 09/23/18 at 09:00 Amiodarone HCl (Cordarone) 200 mg BID PO Last administered on 09/23/18at 08:53; Admin Dose 200 MG; Start 09/23/18 at 09:00 Ipratropium [place] (Atrovent 0.02% (Neb)) 0.5 mg Q6H PRN NEB SHORTNESS OF BREATH; Start 09/23/18 at 01:30 Levalbuterol (Xopenex Hfa) 1 puff Q4H PRN INH WHEEZING AND SOB; Start 09/23/18 at 01:30 Pantoprazole (Protonix Tab) 40 mg DAILY@06 PO Last administered on 09/23/18at 05:34; Admin Dose 40 MG; Start 09/23/18 at 06:00 Collagenase (Santyl) 1 applic DAILY TOP Last administered on 09/23/18at 08:53; Admin Dose 1 APPLIC; Start 09/23/18 at 09:00 Miscellaneous Information (Pending Santyl Order For Wound Care) This patient dugan... PRN PRN XX WOUND CARE; Start 09/23/18 at 02:30 Vancomycin HCl 250 ml @ 125 mls/hr Q24H IVPB Last administered on 09/23/18at 08:53; Admin Dose 125 MLS/HR; Start 09/23/18 at 09:00 Tobramycin 280 mg/ Sodium Chloride 107 ml @ 103.75 mls/ hr Q36H IVPB ; Start 09/23/18 at 18:00 Diltiazem HCl (Cardizem) 30 mg Q8 PO ; Start 09/23/18 at 14:00 Miscellaneous Information (*Rx Drug Level Order Reminder*) RANDOM TOBRA 0400 O NCE XX ; Start 09/24/18 at 04:00; Stop 09/24/18 at 04:01 IFTIKHAR AGUIRRE Sep 23, 2018 19:15
[2018-09-23 20:00] VITALS: BP 103/67; PULSE 100; RESP 19
[2018-09-24] VITALS (7 sets, daily range): BP systolic 91–108; BP diastolic 55–63; PULSE 73–90; RESP 19–22
[2018-09-24] MEDS: DILTIAZEM 30 MG TAB PO SCH ×3 (06:00→23:33)
[2018-09-24] MEDS: PANTOPRAZOLE (EC) 40 MG TAB PO SCH (06:12)
[2018-09-24] MEDS: TOBRAMYCIN IVPB SCH (08:46)
[2018-09-24] MEDS: SOD CHLORIDE 0.9% IVPB SCH (08:46)
[2018-09-24] MEDS: VANCOMYCIN 1 GM 250 ML IVPB SCH (10:12)
[2018-09-24] MEDS: COLLAGENASE 5 GM (UD JAR) TOP SCH (10:12)
[2018-09-24] MEDS: AMIODARONE 200 MG TAB PO SCH ×2 (10:13→20:28)
[2018-09-24] MEDS: ENOXAPARIN 40 MG/0.4 ML SYG SC SCH (10:22)
--- NOTE | 2018-09-24 11:06 | PN ---
Date/Time of Note Date/Time of Note DATE: 09/24/18 TIME: 11:04 Assessment/Plan VTE Prophylaxis Risk score (from [facility])>0 risk: 4 SCD applied (from [facility]): Yes Pharmacological prophylaxis: LMWH Lines/Catheters IV C[facility]ter Type (from [facility]): Peripheral IV Urinary Cath still in place: No Assessment/Plan Assessment/Plan 72-year-old male with atrial fibrillation, multifocal infarcts, dementia, chronic encephalopathy, psychosis/schizophrenia, MV endocarditis, dysphagia with G-tube, stage IV sacral decubitus ulcer was necrosis status post excisional debridement. Patient has been admitted here multiple times and actually was just discharged 2 days ago. During recent hospitalization he was treated for A- fib with RVR and healthcare associated pneumonia and bacteremia. Patient was brought to the ER for fever, tachycardia and brief hypotension. He is admitted and managed as follows : 1. Sepsis, as evidenced by fever and tachycardia: --Source unclear at this time. CXR showing resolution of prev multifocal PNA. Patient also has a history of stage IV sacral ulcer with necrosis status post excisional debridement. Patient also with a history of MV endocarditis and completed vancomycin less than a month ago. -Patient was just discharged from here 3 days ago and at that time he was treated for healthcare associated pneumonia and bacteremia -Empiric IV antibiotic per previous sensitivity -Follow-up culture results, ID consult 2. Chronic encephalopathy, history of CVA: Supportive care 3. Atrial fibrillation: rate controlled, Continue PO amiodarone and diltiazem 4. Dysphagia: Status post G-tube, resume G-tube feedings 5. History of recent MV endocarditis - s/p course of IV vancomycin, completed 08/27 6. Stage III sacral decub ulcer -Surgical sacral decub ulcer debridement on 09/15 Result Diagram: 09/24/1861809/24/18618 Subjective 24 Hr Interval Summary Free Text/Dictation No acute overnight events. Exam/Review of Systems Exam Vitals Vital Signs Date Temp Pulse Resp B/P (MAP) Pulse Ox O2 O2 Flow FiO2 Time Delivery Rate 09/24/18 98.0 78 22 99/59 (72) 100 Room Air 07:22 09/23/18 21 19:17 09/23/18 4.0 14:53 Intake and Output 09/23/18 09/23/18 09/24/18 1515:00 23:00 07:00 IntakeIntake Total 52 ml OutputOutput Total 701 ml 200 ml BalanceBalance -649 ml -200 ml Exam General: Frail elderly man lying in bed. Head: Normocephalic, atraumatic. Eyes: Pupils equally reactive, EOM intact ENT: Moist mucous membranes Neck: Supple, no lymphadenopathy Respiratory: Slightly distant breath sounds bilaterally Cardiovascular: No rubs or gallops Abdominal: Soft, non-tender, non-distended, no peritoneal sign MSK: No lower extremity edema bilaterally. Severe leg muscle atrophy. Results Results 24hrs Laboratory Tests Test 09/24/18 06:19 White Blood Count 7.0 # Red Blood Count 3.28 L Hemoglobin 9.4 L Hematocrit 31.5 L Mean Corpuscular Volume 96.0 Mean Corpuscular Hemoglobin 28.7 L Mean Corpuscular Hemoglobin Concent 29.8 L Red Cell Distribution Width 16.3 H Platelet Count 235 Mean Platelet Volume 9.6 Immature Granulocytes % 1.900 H Neutrophils % 78.0 H Lymphocytes % 10.0 L Monocytes % 7.1 Eosinophils % 2.7 Basophils % 0.3 Nucleated Red Blood Cells % 0.0 Immature Granulocytes # 0.130 H Neutrophils # 5.5 Lymphocytes # 0.7 L Monocytes # 0.5 Eosinophils # 0.2 Basophils # 0.0 Nucleated Red Blood Cells # 0.0 Sodium Level 144 Potassium Level 4.7 Chloride Level 109 Carbon Dioxide Level 27 Anion Gap 8 Blood Urea Nitrogen 25 H Creatinine 0.59 L Est Glomerular Filtrat Rate mL/min > 60 Glucose Level 76 Calcium Level 10.1 Phosphorus Level 3.1 Magnesium Level 2.0 Medications Medication Current Medications IV Flush (NS 3 ml) 3 ml PER PROTOCOL IV ; Start 09/23/18 at 01:30 Ondansetron HCl (Zofran Inj) 4 mg Q6H PRN IV NAUSEA/VOMITING; Start 09/23/18 at 01:30 Acetaminophen (Tylenol Tab) 650 mg Q6H PRN PO .PAIN 1-3 OR TEMP; Start 09/23/18 at 01:30 Enoxaparin Sodium (Lovenox) 40 mg DAILY SC Last administered on 09/24/18at 10:22; Admin Dose 40 MG; Start 09/23/18 at 09:00 Amiodarone HCl (Cordarone) 200 mg BID PO Last administered on 09/24/18at 10:13; Admin Dose 200 MG; Start 09/23/18 at 09:00 Ipratropium [place] (Atrovent 0.02% (Neb)) 0.5 mg Q6H PRN NEB SHORTNESS OF BREATH; Start 09/23/18 at 01:30 Levalbuterol (Xopenex Hfa) 1 puff Q4H PRN INH WHEEZING AND SOB; Start 09/23/18 at 01:30 Pantoprazole (Protonix Tab) 40 mg DAILY@06 PO Last administered on 09/24/18 06:12; Admin Dose 40 MG; Start 09/23/18 at 06:00 Collagenase (Santyl) 1 applic DAILY TOP Last administered on 09/24/18 10:12; Admin Dose 1 APPLIC; Start 09/23/18 at 09:00 Miscellaneous Information (Pending Santyl Order For Wound Care) This patient dugan... PRN PRN XX WOUND CARE; Start 09/23/18 at 02:30 Vancomycin HCl 250 ml @ 125 mls/hr Q24H IVPB Last administered on 09/24/18 10 :12; Admin Dose 125 MLS/HR; Start 09/23/18 at 09:00 Diltiazem HCl (Cardizem) 30 mg Q8 PO Last administered on 09/23/18 21:02; Admin Dose 30 MG; Start 09/23/18 at 14:00 Tobramycin 280 mg/ Sodium Chloride 107 ml @ 103.75 mls/ hr Q36H IVPB Last administered on 09/24/18 08:46; Admin Dose 103.75 MLS/HR; Start 09/24/18 at 08:00 RACIEL HUMPHREY MD Sep 24, 2018 11:06
--- NOTE | 2018-09-24 13:44 | CONS ---
Assessment/Plan Assessment/Plan Assessment/Plan (Daily) Atrial fibrillation with rapid ventricular rates, improved Labile blood pressure Diastolic congestive heart failure Preserved EF History of sepsis Encephalopathy CVA, hemorrhagic History of nonsustained ventricular tachycardia Patient transferred from shelter facility secondary to hypotension and tachycardia. Blood pressure stable here in heart rate has improved Continue amiodarone, adjust dosing of Cardizem - rate well controleld Antibiotics as per primary team Consultation Date/Type/Reason Admit Date/Time Sep 22, 2018 at 20:04 Initial Consult Date Type of Consult Cardiology Date/Time of Note DATE: 09/24/18 TIME: 13:43 24 HR Interval Summary Free Text/Dictation the patient with no cahge Exam/Review of Systems Vital Signs Vitals Vital Signs Date Temp Pulse Resp B/P (MAP) Pulse Ox O2 O2 Flow FiO2 Time Delivery Rate 09/24/18 97.8 88 22 106/56 100 Nasal 11:08 (73) Cannula 09/23/18 21 19:17 09/23/18 4.0 14:53 Intake and Output 09/23/18 09/23/18 09/24/18 1515:00 23:00 07:00 IntakeIntake Total 52 ml OutputOutput Total 701 ml 200 ml BalanceBalance -649 ml -200 ml Labs Result Diagram: 09/24/1819 09/24/18 0619 Results 24hrs Laboratory Tests Test 09/24/18 06:19 White Blood Count 7.0 # Red Blood Count 3.28 L Hemoglobin 9.4 L Hematocrit 31.5 L Mean Corpuscular Volume 96.0 Mean Corpuscular Hemoglobin 28.7 L Mean Corpuscular Hemoglobin Concent 29.8 L Red Cell Distribution Width 16.3 H Platelet Count 235 Mean Platelet Volume 9.6 Immature Granulocytes % 1.900 H Neutrophils % 78.0 H Lymphocytes % 10.0 L Monocytes % 7.1 Eosinophils % 2.7 Basophils % 0.3 Nucleated Red Blood Cells % 0.0 Immature Granulocytes # 0.130 H Neutrophils # 5.5 Lymphocytes # 0.7 L Monocytes # 0.5 Eosinophils # 0.2 Basophils # 0.0 Nucleated Red Blood Cells # 0.0 Sodium Level 144 Potassium Level 4.7 Chloride Level 109 Carbon Dioxide Level 27 Anion Gap 8 Blood Urea Nitrogen 25 H Creatinine 0.59 L Est Glomerular Filtrat Rate mL/min > 60 Glucose Level 76 Calcium Level 10.1 Phosphorus Level 3.1 Magnesium Level 2.0 Medications Medications Current Medications IV Flush (NS 3 ml) 3 ml PER PROTOCOL IV ; Start 09/23/18 at 01:30 Ondansetron HCl (Zofran Inj) 4 mg Q6H PRN IV NAUSEA/VOMITING; Start 09/23/18 at 01:30 Acetaminophen (Tylenol Tab) 650 mg Q6H PRN PO .PAIN 1-3 OR TEMP; Start 09/23/18 at 01:30 Enoxaparin Sodium (Lovenox) 40 mg DAILY SC Last administered on 09/24/18 10:22; Admin Dose 40 MG; Start 09/23/18 at 09:00 Amiodarone HCl (Cordarone) 200 mg BID PO Last administered on 09/24/18 10:13; Admin Dose 200 MG; Start 09/23/18 at 09:00 Ipratropium [place] (Atrovent 0.02% (Neb)) 0.5 mg Q6H PRN NEB SHORTNESS OF BREATH; Start 09/23/18 at 01:30 Levalbuterol (Xopenex Hfa) 1 puff Q4H PRN INH WHEEZING AND SOB; Start 09/23/18 at 01:30 Pantoprazole (Protonix Tab) 40 mg DAILY@06 PO Last administered on 09/24/18 06:12; Admin Dose 40 MG; Start 09/23/18 at 06:00 Collagenase (Santyl) 1 applic DAILY TOP Last administered on 09/24/18 10:12; Admin Dose 1 APPLIC; Start 09/23/18 at 09:00 Miscellaneous Information (Pending Santyl Order For Wound Care) This patient dugan... PRN PRN XX WOUND CARE; Start 09/23/18 at 02:30 Vancomycin HCl 250 ml @ 125 mls/hr Q24H IVPB Last administered on 09/24/18 10:12; Admin Dose 125 MLS/HR; Start 09/23/18 at 09:00 Diltiazem HCl (Cardizem) 30 mg Q8 PO Last administered on 09/23/18 21:02; Admin Dose 30 MG; Start 09/23/18 at 14:00 Tobramycin 280 mg/ Sodium Chloride 107 ml @ 103.75 mls/ hr Q36H IVPB Last administered on 8/3/19at 08:46; Admin Dose 103.75 MLS/HR; Start 09/24/18 at 08:00 Miscellaneous Information (*Rx Drug Level Order Reminder*) RANDOM TOBRA 1800 ONCE XX ; Start 09/24/18 at 18:00; Stop 09/24/18 at 18:01 Ascorbic Acid (Vitamin C) 500 mg BID GTB ; Start 09/24/18 at 21:00 Multivitamins (Multivitamin) 30 ml DAILY GTB ; Start 09/25/18 at 09:00 SAMANTA DUFFY MD Sep 24, 2018 13:44
--- NOTE | 2018-09-24 15:19 | CONS ---
Assessment/Plan Assessment/Plan Hospital Course (Demo Recall) ID PROGRESS NOTE CURRENT ABX: DAY # =>Vanco IV + Tobra IV 24H INTERVAL SUMMARY * Cachectic M awake, alert, nods head, VSS, NAD, without dyspnea on O2 via NC * Indwelling's: PEG, FC, liquid stools in fecal containment bag DIAGNOSTIC IMAGING * 09/22/18 CXR: 1. Interval resolution of previously described multilobar pneumonia with mild diffuse bilateral interstitial edema 2. Mild cardiomegaly and atherosclerotic vascular disease MICRO * 09/22/2018 Urine Cx (-) * 09/22/18 BCX (-) PHYSICAL EXAMINATION: GENERAL: VSS, NAD - cachectic HEENT: AT, NC, NECK: Supple, CHEST: Rise symmetrical HEART: Pulse RRR ABDOMEN: Benign EXTREMITIES: Warm, dry SKIN: No rash, no diaphoresis large unstageable sacral wound ID ASSESSMENT 72 yo M admit with: 1. Sepsis with fevers and leukocytosis, present on admission 2. Unstageable sacral decubitus ulcer status post debridement last week 3. Status post bacteremia 4. Status post UTI 5. History of recent C. difficile colitis 6. History of MRSA endocarditis, treated 7. History of CVA with chronic encephalopathy 8. Dysphagia status post PEG 9. Atrial fibrillation 10. Cachexia ABX ALLERGIES: KNDA INVASIVES: PIV CURRENT ABX: DAY # =>Vanco IV + Tobra IV ID RECOMMENDATIONS/PLAN: 1. Continue current ABX over the weekend 2. Local decub care . Consultation Date/Type/Reason Admit Date/Time Sep 22, 2018 at 20:04 Initial Consult Date Date/Time of Note DATE: 09/24/18 TIME: 15:13 Exam/Review of Systems Exam Vitals Vital Signs Date Temp Pulse Resp B/P (MAP) Pulse Ox O2 O2 Flow FiO2 Time Delivery Rate 09/24/18 97.9 90 20 108/57 100 Nasal 15:07 (74) Cannula 09/23/18 21 19:17 09/23/18 4.0 14:53 Intake and Output 09/23/18 09/23/18 09/24/18 1515:00 23:00 07:00 IntakeIntake Total 52 ml OutputOutput Total 701 ml 200 ml BalanceBalance -649 ml -200 ml Results Result Diagram: 8/3/19 0619 8/3/19 0619 Results 24hrs Laboratory Tests Test 09/24/18 06:19 White Blood Count 7.0 # Red Blood Count 3.28 L Hemoglobin 9.4 L Hematocrit 31.5 L Mean Corpuscular Volume 96.0 Mean Corpuscular Hemoglobin 28.7 L Mean Corpuscular Hemoglobin Concent 29.8 L Red Cell Distribution Width 16.3 H Platelet Count 235 Mean Platelet Volume 9.6 Immature Granulocytes % 1.900 H Neutrophils % 78.0 H Lymphocytes % 10.0 L Monocytes % 7.1 Eosinophils % 2.7 Basophils % 0.3 Nucleated Red Blood Cells % 0.0 Immature Granulocytes # 0.130 H Neutrophils # 5.5 Lymphocytes # 0.7 L Monocytes # 0.5 Eosinophils # 0.2 Basophils # 0.0 Nucleated Red Blood Cells # 0.0 Sodium Level 144 Potassium Level 4.7 Chloride Level 109 Carbon Dioxide Level 27 Anion Gap 8 Blood Urea Nitrogen 25 H Creatinine 0.59 L Est Glomerular Filtrat Rate mL/min > 60 Glucose Level 76 Calcium Level 10.1 Phosphorus Level 3.1 Magnesium Level 2.0 Medications Medication Current Medications IV Flush (NS 3 ml) 3 ml PER PROTOCOL IV ; Start 09/23/18 at 01:30 Ondansetron HCl (Zofran Inj) 4 mg Q6H PRN IV NAUSEA/VOMITING; Start 09/23/18 at 01:30 Acetaminophen (Tylenol Tab) 650 mg Q6H PRN PO .PAIN 1-3 OR TEMP; Start 09/23/18 at 01:30 Enoxaparin Sodium (Lovenox) 40 mg DAILY SC Last administered on 09/24/18at 10:22; Admin Dose 40 MG; Start 09/23/18 at 09:00 Amiodarone HCl (Cordarone) 200 mg BID PO Last administered on 09/24/18at 10:13; Admin Dose 200 MG; Start 09/23/18 at 09:00 Ipratropium [place] (Atrovent 0.02% (Neb)) 0.5 mg Q6H PRN NEB SHORTNESS OF BREATH; Start 09/23/18 at 01:30 Levalbuterol (Xopenex Hfa) 1 puff Q4H PRN INH WHEEZING AND SOB; Start 09/23/18 at 01:30 Pantoprazole (Protonix Tab) 40 mg DAILY@06 PO Last administered on 09/24/18at 06:12; Admin Dose 40 MG; Start 09/23/18 at 06:00 Collagenase (Santyl) 1 applic DAILY TOP Last administered on 09/24/18at 10:12; Admin Dose 1 APPLIC; Start 09/23/18 at 09:00 Miscellaneous Information (Pending Santyl Order For Wound Care) This patient dugan... PRN PRN XX WOUND CARE; Start 09/23/18 at 02:30 Vancomycin HCl 250 ml @ 125 mls/hr Q24H IVPB Last administered on 09/24/18at 10: 12; Admin Dose 125 MLS/HR; Start 09/23/18 at 09:00 Diltiazem HCl (Cardizem) 30 mg Q8 PO Last administered on 09/23/18at 21:02; Admin Dose 30 MG; Start 09/23/18 at 14:00 Tobramycin 280 mg/ Sodium Chloride 107 ml @ 103.75 mls/ hr Q36H IVPB Last administered on 09/24/18at 08:46; Admin Dose 103.75 MLS/HR; Start 09/24/18 at 08:00 Miscellaneous Information (*Rx Drug Level Order Reminder*) RANDOM TOBRA 1800 ONCE XX ; Start 09/24/18 at 18:00; Stop 09/24/18 at 18:01 Ascorbic Acid (Vitamin C) 500 mg BID GTB ; Start 09/24/18 at 21:00 Multivitamins (Multivitamin) 30 ml DAILY GTB ; Start 09/25/18 at 09:00 NEYDA DUENAS NP Sep 24, 2018 15:19
[2018-09-24] MEDS: ASCORBIC ACID 500 MG TAB GTB SCH (20:28)
[2018-09-25 04:02] VITALS: BP 108/65; PULSE 78; RESP 18
[2018-09-25] MEDS: PANTOPRAZOLE (EC) 40 MG TAB PO SCH (06:35)
[2018-09-25] MEDS: DILTIAZEM 30 MG TAB PO SCH ×3 (06:35→22:00)
[2018-09-25 07:11] VITALS: BP 96/54; PULSE 74; RESP 16
[2018-09-25] MEDS: MULTIVITAMINS 30 ML CUP GTB SCH (09:56)
[2018-09-25] MEDS: VANCOMYCIN 1 GM 250 ML IVPB SCH (09:57)
[2018-09-25] MEDS: ASCORBIC ACID 500 MG TAB GTB SCH ×2 (09:57→20:53)
[2018-09-25] MEDS: AMIODARONE 200 MG TAB PO SCH ×2 (09:57→20:55)
[2018-09-25] MEDS: COLLAGENASE 5 GM (UD JAR) TOP SCH (09:58)
--- NOTE | 2018-09-25 10:05 | PN ---
Date/Time of Note Date/Time of Note DATE: 09/25/18 TIME: 09:59 Assessment/Plan VTE Prophylaxis Risk score (from Ns)>0 risk: 5 SCD applied (from Ns): No SCD contraindicated: other (no) Pharmacological prophylaxis: LMWH Lines/Catheters IV C[facility]ter [facility]from [facility] [place] Urinary Cath still in place: No Assessment/Plan Assessment/Plan 72-year-old male with atrial fibrillation, multifocal infarcts, dementia, chronic encephalopathy, psychosis/schizophrenia, MV endocarditis, dysphagia with G-tube, stage IV sacral decubitus ulcer was necrosis status post excisional debridement. Patient has been admitted here multiple times and actually was just discharged 2 days ago. During recent hospitalization he was treated for A- fib with RVR and healthcare associated pneumonia and bacteremia. Patient was brought to the ER for fever, tachycardia and brief hypotension. He is admitted and managed as follows : 1. Sepsis, as evidenced by fever and tachycardia: --Source unclear at this time. CXR showing resolution of prev multifocal PNA. Patient also has a history of stage IV sacral ulcer with necrosis status post excisional debridement. Patient also with a history of MV endocarditis and completed vancomycin less than a month ago. -Patient was just discharged from here 3 days ago and at that time he was treated for healthcare associated pneumonia and bacteremia -Empiric IV antibiotic per previous sensitivity -Follow-up culture results, ID consult 2. Chronic encephalopathy, history of CVA: Supportive care 3. Atrial fibrillation: rate controlled, Continue PO amiodarone and diltiazem 4. Dysphagia: Status post G-tube, resume G-tube feedings 5. History of recent MV endocarditis - s/p course of IV vancomycin, completed 08/27 6. Stage III sacral decub ulcer -Surgical sacral decub ulcer debridement on 09/15 Dispo: Cultures negative so far. Will monitor overnight, anticipate discharge back to SNF on Wednesday depending on ID recs. Result Diagram: 09/24/1861809/24/18618 Subjective 24 Hr Interval Summary Free Text/Dictation Overnight patient had a few drops of blood from the condom catheter. Otherwise no major issues. Exam/Review of Systems Exam Vitals Vital Signs Date Temp Pulse Resp B/P (MAP) Pulse Ox O2 O2 Flow FiO2 Time Delivery Rate 09/25/18 97.6 74 16 96/54 (68) 99 07:11 09/25/18 Nasal 04:02 Cannula 09/23/18 21 19:17 09/23/18 4.0 14:53 Intake and Output 09/24/18 09/24/18 09/25/18 1515:00 23:00 07:00 IntakeIntake Total 987 ml 1120 ml OutputOutput Total 500 ml BalanceBalance 987 ml 620 ml Exam General: Frail elderly man lying in bed. Head: Normocephalic, atraumatic. Eyes: Pupils equally reactive, EOM intact ENT: Moist mucous membranes Neck: Supple, no lymphadenopathy Respiratory: Slightly distant breath sounds bilaterally Cardiovascular: No rubs or gallops Abdominal: Soft, non-tender, non-distended, no peritoneal sign MSK: No lower extremity edema bilaterally. Severe leg muscle atrophy. Results Results 24hrs Laboratory Tests Test 09/24/18 18:47 Random Tobramycin Level 4.4 Medications Medication Current Medications IV Flush (NS 3 ml) 3 ml PER PROTOCOL IV ; Start 09/23/18 at 01:30 Ondansetron HCl (Zofran Inj) 4 mg Q6H PRN IV NAUSEA/VOMITING; Start 09/23/18 at 01:30 Acetaminophen (Tylenol Tab) 650 mg Q6H PRN PO .PAIN 1-3 OR TEMP; Start 09/23/18 at 01:30 Enoxaparin Sodium (Lovenox) 40 mg DAILY SC Last administered on 09/24/18at 10:22; Admin Dose 40 MG; Start 09/23/18 at 09:00 Amiodarone HCl (Cordarone) 200 mg BID PO Last administered on 09/24/18at 20:28; Admin Dose 200 MG; Start 09/23/18 at 09:00 Ipratropium [place] (Atrovent 0.02% (Neb)) 0.5 mg Q6H PRN NEB SHORTNESS OF BREATH; Start 09/23/18 at 01:30 Levalbuterol (Xopenex Hfa) 1 puff Q4H PRN INH WHEEZING AND SOB; Start 09/23/18 at 01:30 Pantoprazole (Protonix Tab) 40 mg DAILY@06 PO Last administered on 09/25/18at 06:35; Admin Dose 40 MG; Start 09/23/18 at 06:00 Collagenase (Santyl) 1 applic DAILY TOP Last administered on 09/24/18at 10:12; Admin Dose 1 APPLIC; Start 09/23/18 at 09:00 Miscellaneous Information (Pending [facility] Order For Wound Care) This patient dugan... PRN PRN XX WOUND CARE; Start 09/23/18 at 02:30 Vancomycin HCl 250 ml @ 125 mls/hr Q24H IVPB Last administered on 09/24/18at 10:12; Admin Dose 125 MLS/HR; Start 09/23/18 at 09:00 Diltiazem HCl (Cardizem) 30 mg Q8 PO Last administered on 09/25/18at 06:35; Admin Dose 30 MG; Start 09/23/18 at 14:00 Tobramycin 280 mg/ Sodium Chloride 107 ml @ 103.75 mls/ hr Q36H IVPB Last administered on 09/24/18at 08:46; Admin Dose 103.75 MLS/HR; Start 09/24/18 at 08:00 Ascorbic Acid (Vitamin C) 500 mg BID GTB Last administered on 09/24/18at 20:28; Admin Dose 500 MG; Start 09/24/18 at 21:00 Multivitamins (Multivitamin) 30 ml DAILY GTB ; Start 09/25/18 at 09:00 Miscellaneous Information (*Rx Drug Level Order Reminder*) VANCO TR 0800 ONCE XX ; Start 09/26/18 at 08:00; Stop 09/26/18 at 08:01 RACIEL HUMPHREY MD Sep 25, 2018 10:04
[2018-09-25] MEDS: ENOXAPARIN 40 MG/0.4 ML SYG SC SCH (10:16)
[2018-09-25 11:22] VITALS: BP 103/58; PULSE 81; RESP 18
[2018-09-25 15:38] VITALS: BP 108/61; PULSE 74; RESP 18
[2018-09-25 19:24] VITALS: BP 102/70; PULSE 94; RESP 20
--- NOTE | 2018-09-25 19:50 | CONS ---
Assessment/Plan Assessment/Plan Hospital Course (Demo Recall) ID PROGRESS NOTE CURRENT ABX: DAY # 4 =>Vanco IV + Tobra IV 24H INTERVAL SUMMARY * NO FEVERS, VSS -- PATIENT HAS IMPROVED -- WBC NORMALIZED * Cachectic M awake, alert, nods head, VSS, NAD, without dyspnea on O2 via NC * Admit 09/22/18 with RECURRENT SEPSIS == all micro (-) * SUSPECT ASP PNEUMONITIS EVENT W/O full blown PNA * Indwelling's: PEG, FC, liquid stools in fecal containment bag DIAGNOSTIC IMAGING * 09/22/18 CXR: 1. Interval resolution of previously described multilobar pneumonia with mild diffuse bilateral interstitial edema 2. Mild cardiomegaly and atherosclerotic vascular disease MICRO * 09/22/2018 Urine Cx (-) * 09/22/18 BCX (-) PHYSICAL EXAMINATION: GENERAL: VSS, NAD - cachectic HEENT: AT, NC, NECK: Supple, CHEST: Rise symmetrical HEART: Pulse RRR ABDOMEN: Benign EXTREMITIES: Warm, dry SKIN: No rash, no diaphoresis large unstageable sacral wound ID ASSESSMENT 72 yo M admit with: 1. Sepsis with fevers and leukocytosis, present on admission * SUSPECT ASP PNEUMONITIS EVENT W/O full blown PNA 2. Unstageable sacral decubitus ulcer status post debridement last week 3. Status post bacteremia 4. Status post UTI 5. History of recent C. difficile colitis 6. History of MRSA endocarditis, treated 7. History of CVA with chronic encephalopathy 8. Dysphagia status post PEG 9. Atrial fibrillation 10. Cachexia ABX ALLERGIES: KNDA INVASIVES: PIV CURRENT ABX: DAY # 4 =>Vanco IV + Tobra IV ID RECOMMENDATIONS/PLAN: 1. SUSPECT ASP PNEUMONITIS EVENT W/O full blown PNA * Continue current ABX over the weekend * Repeat CXR in AM * DC ABX if CXR without PNA 2. Local decub care . Consultation Date/Type/Reason Admit Date/Time Sep 22, 2018 at 20:04 Initial Consult Date Date/Time of Note DATE: 09/25/18 TIME: 19:44 Exam/Review of Systems Exam Vitals Vital Signs Date Temp Pulse Resp B/P (MAP) Pulse Ox O2 O2 Flow FiO2 Time Delivery Rate 09/25/18 97.4 94 20 102/70 99 19:24 (81) 09/25/18 Nasal 04:02 Cannula 09/23/18 21 19:17 09/23/18 4.0 14:53 Intake and Output 09/24/18 09/24/18 09/25/18 1515:00 23:00 07:00 IntakeIntake Total 987 ml 1120 ml OutputOutput Total 500 ml BalanceBalance 987 ml 620 ml Results Result Diagram: 09/24/1861809/24/18618 Medications Medication Current Medications IV Flush (NS 3 ml) 3 ml PER PROTOCOL IV ; Start 09/23/18 at 01:30 Ondansetron HCl (Zofran Inj) 4 mg Q6H PRN IV NAUSEA/VOMITING; Start 09/23/18 at 01:30 Acetaminophen (Tylenol Tab) 650 mg Q6H PRN PO .PAIN 1-3 OR TEMP; Start 09/23/18 at 01:30 Enoxaparin Sodium (Lovenox) 40 mg DAILY SC Last administered on 09/25/18 10:16; Admin Dose 40 MG; Start 09/23/18 at 09:00 Amiodarone HCl (Cordarone) 200 mg BID PO Last administered on 09/25/18 09:57; Admin Dose 200 MG; Start 09/23/18 at 09:00 Ipratropium [place] (Atrovent 0.02% (Neb)) 0.5 mg Q6H PRN NEB SHORTNESS OF BREATH; Start 09/23/18 at 01:30 Levalbuterol (Xopenex Hfa) 1 puff Q4H PRN INH WHEEZING AND SOB; Start 09/23/18 at 01:30 Pantoprazole (Protonix Tab) 40 mg DAILY@06 PO Last administered on 09/25/18 06:35; Admin Dose 40 MG; Start 09/23/18 at 06:00 Collagenase (Santyl) 1 applic DAILY TOP Last administered on 09/25/18 09:58; Admin Dose 1 APPLIC; Start 09/23/18 at 09:00 Miscellaneous Information (Pending Santyl Order For Wound Care) This patient dugan... PRN PRN XX WOUND CARE; Start 09/23/18 at 02:30 Vancomycin HCl 250 ml @ 125 mls/hr Q24H IVPB Last administered on 09/25/18 09:57; Admin Dose 125 MLS/HR; Start 09/23/18 at 09:00 Diltiazem HCl (Cardizem) 30 mg Q8 PO Last administered on 09/25/18at 15:33; Admin Dose 30 MG; Start 09/23/18 at 14:00 Tobramycin 280 mg/ Sodium Chloride 107 ml @ 103.75 mls/ hr Q36H IVPB Last administered on 09/24/18at 08:46; Admin Dose 103.75 MLS/HR; Start 09/24/18 at 08:00 Ascorbic Acid (Vitamin C) 500 mg BID GTB Last administered on 09/25/18at 09:57; Admin Dose 500 MG; Start 09/24/18 at 21:00 Multivitamins (Multivitamin) 30 ml DAILY GTB Last administered on 09/25/18at 09:56; Admin Dose 30 ML; Start 09/25/18 at 09:00 Miscellaneous Information (*Rx Drug Level Order Reminder*) GERMAN TR 0800 ONCE XX ; Start 09/26/18 at 08:00; Stop 09/26/18 at 08:01 NEYDA DUENAS NP Sep 25, 2018 19:50
[2018-09-25] MEDS: TOBRAMYCIN IVPB SCH (20:52)
[2018-09-25] MEDS: SOD CHLORIDE 0.9% IVPB SCH (20:52)
[2018-09-26 00:16] VITALS: BP 111/65; PULSE 91; RESP 20
[2018-09-26 04:27] VITALS: BP 107/57; PULSE 92; RESP 22
[2018-09-26] MEDS: PANTOPRAZOLE (EC) 40 MG TAB PO SCH (06:14)
[2018-09-26] MEDS: DILTIAZEM 30 MG TAB PO SCH ×2 (06:15→13:46)
[2018-09-26 07:28] VITALS: BP 109/67; PULSE 86; RESP 16
[2018-09-26] MEDS: COLLAGENASE 5 GM (UD JAR) TOP SCH (08:52)
[2018-09-26] MEDS: MULTIVITAMINS 30 ML CUP GTB SCH (08:52)
[2018-09-26] MEDS: ASCORBIC ACID 500 MG TAB GTB SCH (08:52)
[2018-09-26] MEDS: AMIODARONE 200 MG TAB PO SCH (08:53)
[2018-09-26] MEDS: ENOXAPARIN 40 MG/0.4 ML SYG SC SCH (08:57)
[2018-09-26] MEDS: VANCOMYCIN 1 GM 250 ML IVPB SCH (10:02)
[2018-09-26 11:05] VITALS: BP 106/66; PULSE 98; RESP 17
--- NOTE | 2018-09-26 11:08 | CONS ---
Assessment/Plan Assessment/Plan Hospital Course (Demo Recall) No fevers, cx's and cxr neg Antimicrobials: Tobramycin, vancomycin Allergies: Penicillin Indwelling's: PEG Physical examination: Fragile elderly man who is in no distress. Head atraumatic normocephalic neck is supple chest rise symmetrical breath sounds diminished bases. Heart: S1-S2. Abdomen soft bowel sounds present. Extremities without cyanosis. Skin: Patient has a large unstageable sacral wound Assessment: 1. Sepsis with fevers and leukocytosis, present on admission 2. Unstageable sacral decubitus ulcer status post debridement last week 3. Status post bacteremia 4. Status post UTI 5. History of recent C. difficile colitis 6. History of MRSA endocarditis, treated 7. History of CVA with chronic encephalopathy 8. Dysphagia status post PEG 9. Atrial fibrillation Plan: Stable, dc abx Consultation Date/Type/Reason Admit Date/Time Sep 22, 2018 at 20:04 Initial Consult Date Type of Consult id Date/Time of Note DATE: 09/26/18 TIME: 11:08 Exam/Review of Systems Exam Vitals Vital Signs Date Temp Pulse Resp B/P (MAP) Pulse Ox O2 O2 Flow FiO2 Time Delivery Rate 09/26/18 97.9 98 17 106/66 100 11:05 (79) 09/25/18 Nasal 04:02 Cannula 09/23/18 21 19:17 09/23/18 4.0 14:53 Intake and Output 09/25/18 09/25/18 09/26/18 1515:00 23:00 07:00 IntakeIntake Total 447 ml 620 ml OutputOutput Total 100 ml BalanceBalance 347 ml 620 ml Results Result Diagram: 09/26/18 0731 09/26/18 0731 Results 24hrs Laboratory Tests Test 09/26/18 07:31 09/26/18 07:32 White Blood Count 6.7 Red Blood Count 3.16 L Hemoglobin 9.0 L Hematocrit 29.2 L Mean Corpuscular Volume 92.4 Mean Corpuscular Hemoglobin 28.5 L Mean Corpuscular Hemoglobin Concent 30.8 L Red Cell Distribution Width 15.9 H Platelet Count 259 Mean Platelet Volume 9.8 Immature Granulocytes % 3.900 H Neutrophils % 73.3 Lymphocytes % 12.3 L Monocytes % 7.4 Eosinophils % 2.4 Basophils % 0.7 Nucleated Red Blood Cells % 0.0 Immature Granulocytes # 0.260 H Neutrophils # 4.9 Lymphocytes # 0.8 Monocytes # 0.5 Eosinophils # 0.2 Basophils # 0.1 Nucleated Red Blood Cells # 0.0 Sodium Level 144 Potassium Level 4.0 Chloride Level 107 Carbon Dioxide Level 29 Anion Gap 8 Blood Urea Nitrogen 21 H Creatinine 0.48 L Est Glomerular Filtrat Rate mL/min > 60 Glucose Level 98 Calcium Level 8.9 Phosphorus Level 3.4 Magnesium Level 1.8 Vancomycin Level Trough 15.5 Medications Medication Current Medications IV Flush (NS 3 ml) 3 ml PER PROTOCOL IV ; Start 09/23/18 at 01:30 Ondansetron HCl (Zofran Inj) 4 mg Q6H PRN IV NAUSEA/VOMITING; Start 09/23/18 at 01:30 Acetaminophen (Tylenol Tab) 650 mg Q6H PRN PO .PAIN 1-3 OR TEMP; Start 09/23/18 at 01:30 Enoxaparin Sodium (Lovenox) 40 mg DAILY SC Last administered on 09/26/18 08:57; Admin Dose 40 MG; Start 09/23/18 at 09:00 Amiodarone HCl (Cordarone) 200 mg BID PO Last administered on 09/26/18 08:53; Admin Dose 200 MG; Start 09/23/18 at 09:00 Ipratropium [place] (Atrovent 0.02% (Neb)) 0.5 mg Q6H PRN NEB SHORTNESS OF BREATH; Start 09/23/18 at 01:30 Levalbuterol (Xopenex Hfa) 1 puff Q4H PRN INH WHEEZING AND SOB; Start 09/23/18 at 01:30 Pantoprazole (Protonix Tab) 40 mg DAILY@06 PO Last administered on 09/26/18 06:14; Admin Dose 40 MG; Start 09/23/18 at 06:00 Collagenase (Santyl) 1 applic DAILY TOP Last administered on 09/26/18 08:52; Admin Dose 1 APPLIC; Start 09/23/18 at 09:00 Miscellaneous Information (Pending Santyl Order For Wound Care) This patient dugan... PRN PRN XX WOUND CARE; Start 09/23/18 at 02:30 Vancomycin HCl 250 ml @ 125 mls/hr Q24H IVPB Last administered on 8/5/19at 10:02; Admin Dose 125 MLS/HR; Start 09/23/18 at 09:00 Diltiazem HCl (Cardizem) 30 mg Q8 PO Last administered on 09/26/18 06:15; Admin Dose 30 MG; Start 09/23/18 at 14:00 Tobramycin 280 mg/ Sodium Chloride 107 ml @ 103.75 mls/ hr Q36H IVPB Last administered on 09/25/18 20:52; Admin Dose 103.75 MLS/HR; Start 09/24/18 at 08:00 Ascorbic Acid (Vitamin C) 500 mg BID GTB Last administered on 09/26/18 08:52; Admin Dose 500 MG; Start 09/24/18 at 21:00 Multivitamins (Multivitamin) 30 ml DAILY GTB Last administered on 09/26/18 08:52; Admin Dose 30 ML; Start 09/25/18 at 09:00 SANDER PRESLEY NP Sep 26, 2018 11:08
--- NOTE | 2018-09-26 12:19 | DS ---
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 Patient has been admitted here multiple times and actually was just discharged 2 days ago. During recent hospitalization he was treated for A- fib with RVR and healthcare associated pneumonia and bacteremia. Patient was brought to the ER for fever, tachycardia and brief hypotension. He is admitted and managed as follows : 1. Sepsis, as evidenced by fever and tachycardia: resolved --Source unclear at this time. CXR showing resolution of prev multifoal PNA. Patient also has a history of stage IV sacral ulcer with necrosis status post excisional debridement. Patient also with a history of MV endocarditis and completed vancomycin less than a month ago. -Patient was just discharged from here 2 days ago and at that time he was treated for healthcare associated pneumonia and bacteremia -all cultures negative, antibiotics dced by ID 2. Chronic encephalopathy, history of CVA: 3. Atrial fibrillation: rate controlled, Continue PO amiodarone and diltiazem 4. Dysphagia: Status post G-tube, resume G-tube feedings 5. History of recent MV endocarditis - s/p course of IV vancomycin, completed 08/27 6. Stage III sacral decub ulcer -Surgical sacral decub ulcer debridement on 09/15 . Patient Condition: Stable Consults ID : Bassam Posada MD . Hospital Course 72-year-old male who was [facility] for fever tachycardia and had brief hypotension was managed for sepsis from unclear course. All his blood cultures came back negative urine culture also came back negative. Patient has chronic encephalopathy and basically was stable at his baseline throughout his hospitalization. He was initially treated with very aggressive antibiotics, but after culture results were nonspecific, antibiotics vascularly trended down. Of note is that he has a large unstageable sacral ulcer and there was concern that this may be contributing to his sepsis. At this time patient has been fever free for more than 24 hours, ID has discontinued all antibiotics will plan to discharge patient back to prison facility and follow ID final recommendations. Home Meds Reported Medications Vancomycin Hcl (Vancocin) 1 Gm Soln, 750 MG IV, VIAL 07/25/18 Meropenem (Merrem) 1 Gm Vial, 1 GM IV, VIAL 07/25/18 Levalbuterol* (Xopenex* HFA) 15 Gm Inha, 2 PUFFS INH Q4H PRN for WHEEZING AND SOB, INHALER 07/25/18 Lansoprazole* (Lansoprazole*) 30 Mg Capsule.dr, 30 MG PO DAILY, CAP 07/25/18 L Acidophil/B Lactis/B Longum (FLORAJEN3 CAPSULE) 460 Mg Capsule, 460 MG PO, CAP 07/25/18 Ipratropium [place] neb (Ipratropium [place] neb) 0.2 Mg/Ml Solution, 0.5 MG IH Q6H PRN for SHORTNESS OF BREATH, EA 07/25/18 Diltiazem Hcl* (Cardizem SR*) 60 Mg Capsr, 60 MG PO Q12, #60 CAP 07/25/18 Collagenase* (Santyl*) 30 Gm Oint..gm., 1 APPLIC TOP DAILY, #1 TUB 07/25/18 Balsam [place]/Ambrose Oil (Venelex Ointment) 60 Gm Oint..gm., 1 APPLIC TOP BID, #1 TUB 07/25/18 Amiodarone Hcl* (Amiodarone Hcl*) 200 Mg Tablet, 200 MG NGT BID, #60 TAB 07/25/18 Follow-up Plan Care to be resumed by primary MD at the prison facility. . Primary Care Provider Not On Staff Doctor Time spent on discharge: > 30 minutes Pending Labs Laboratory Tests Test 09/26/18 07:31 09/26/18 07:32 White Blood Count 6.7 10^3/ul (4.8-10.8) Red Blood Count 3.16 10^6/ul (4.70-6.10) Hemoglobin 9.0 g/dl (14.0-18.0) Hematocrit 29.2 % (42.0-52.0) Mean Corpuscular Volume 92.4 fl (82.0-101.0) Mean Corpuscular Hemoglobin 28.5 pg (29.0-33.0) Mean Corpuscular 30.8 g/dl (32.0-37.0) Hemoglobin Concent Red Cell Distribution Width 15.9 % (11.5-14.5) Platelet Count 259 10^3/UL (140-415) Mean Platelet Volume 9.8 fl (7.4-10.4) Immature Granulocytes % 3.900 % (0.001-0.429) Neutrophils % 73.3 % (39.0-77.0) Lymphocytes % 12.3 % (15.0-51.0) Monocytes % 7.4 % (0.0-11.0) Eosinophils % 2.4 % (0.0-7.0) Basophils % 0.7 % (0.0-2.0) Nucleated Red Blood Cells % 0.0 /100WBC (0.0-0.0) Immature Granulocytes # 0.260 10^3/ul (0.0-0.031) Neutrophils # 4.9 10^3/ul (1.6-7.5) Lymphocytes # 0.8 10^3/ul (0.8-2.9) Monocytes # 0.5 10^3/ul (0.3-0.9) Eosinophils # 0.2 10^3/ul (0.0-0.5) Basophils # 0.1 10^3/ul (0.0-0.1) Nucleated Red Blood Cells # 0.0 10^3/ul (0.0-0.0) Sodium Level 144 mmol/L (135-144) Potassium Level 4.0 mmol/L (3.5-5.1) Chloride Level 107 mmol/L (97-110) Carbon Dioxide Level 29 mmol/L (21-31) Anion Gap 8 (5-13) Blood Urea Nitrogen 21 mg/dl (7-20) Creatinine 0.48 mg/dl (0.61-1.24) Est Glomerular Filtrat > 60 mL/min (>60) Rate mL/min Glucose Level 98 mg/dl (70-220) Calcium Level 8.9 mg/dl (8.4-10.2) Phosphorus Level 3.4 mg/dl (2.5-4.9) Magnesium Level 1.8 mg/dl (1.7-2.5) Vancomycin Level Trough 15.5 ug/ml (10.0-20.0) IFTIKHAR AGUIRRE Sep 26, 2018 12:19
[2018-09-26 15:13] VITALS: BP 110/63; PULSE 90; RESP 18
--- NOTE | 2018-09-26 19:02 | CONS ---
Assessment/Plan Assessment/Plan Hospital Course (Demo Recall) Atrial fibrillation with rapid ventricular rates, improved Labile blood pressure Diastolic congestive heart failure Preserved EF History of sepsis Encephalopathy CVA, hemorrhagic History of nonsustained ventricular tachycardia Continue Cardizem and BP permits Continue amiodarone as tolerated Antibiotics as per primary team Consultation Date/Type/Reason Admit Date/Time Sep 22, 2018 at 20:04 Initial Consult Date Type of Consult Cardiology Date/Time of Note DATE: 09/26/18 TIME: 19:01 24 HR Interval Summary Free Text/Dictation no sob,pain Exam/Review of Systems Vital Signs Vitals Vital Signs Date Temp Pulse Resp B/P (MAP) Pulse Ox O2 O2 Flow FiO2 Time Delivery Rate 09/26/18 98.4 90 18 110/63 100 15:13 (79) 09/25/18 Nasal 04:02 Cannula 09/23/18 21 19:17 09/23/18 4.0 14:53 Intake and Output 09/25/18 09/25/18 09/26/18 1414:59 22:59 06:59 IntakeIntake Total 387 ml 680 ml OutputOutput Total 100 ml BalanceBalance 287 ml 680 ml Exam Exam awake, nad Constitutional: frail Head: normocephalic Respiratory: other (course bs, no wheeze) Cardiovascular: irregular rhythm (s1s2) Gastrointestinal: soft, non-tender, bowel sounds Extremities: edema (no) Labs Result Diagram: 09/26/18 0731 09/26/18 0731 Results 24hrs Laboratory Tests Test 09/26/18 07:31 09/26/18 07:32 White Blood Count 6.7 Red Blood Count 3.16 L Hemoglobin 9.0 L Hematocrit 29.2 L Mean Corpuscular Volume 92.4 Mean Corpuscular Hemoglobin 28.5 L Mean Corpuscular Hemoglobin Concent 30.8 L Red Cell Distribution Width 15.9 H Platelet Count 259 Mean Platelet Volume 9.8 Immature Granulocytes % 3.900 H Neutrophils % 73.3 Lymphocytes % 12.3 L Monocytes % 7.4 Eosinophils % 2.4 Basophils % 0.7 Nucleated Red Blood Cells % 0.0 Immature Granulocytes # 0.260 H Neutrophils # 4.9 Lymphocytes # 0.8 Monocytes # 0.5 Eosinophils # 0.2 Basophils # 0.1 Nucleated Red Blood Cells # 0.0 Sodium Level 144 Potassium Level 4.0 Chloride Level 107 Carbon Dioxide Level 29 Anion Gap 8 Blood Urea Nitrogen 21 H Creatinine 0.48 L Est Glomerular Filtrat Rate mL/min > 60 Glucose Level 98 Calcium Level 8.9 Phosphorus Level 3.4 Magnesium Level 1.8 Vancomycin Level Trough 15.5 Charan Cottrell DO Sep 26, 2018 19:02
== END 2018-09-26 18:24 | DRG 871 ==
LOC: E/R 18:00 → TEL 20:04
PROVIDERS: ADMIT Internal Medicine; ATTEND Family Medicine
DX: A41.9 Sepsis, unspecified organism (principal); L89.154 Pressure ulcer of sacral region, stage 4; G93.40 Encephalopathy, unspecified; I50.30 Unspecified diastolic (congestive) heart failure; R64 Cachexia; Z68.1 Body mass index [BMI] 19.9 or less, adult; I48.91 Unspecified atrial fibrillation; I11.0 Hypertensive heart disease with heart failure; F20.9 Schizophrenia, unspecified; R13.10 Dysphagia, unspecified; Z93.1 Gastrostomy status; F01.50 Vascular dementia, unspecified severity, without behavioral disturbance, psychotic disturbance, mood disturbance, and anxiety; Z86.73 Personal history of transient ischemic attack (TIA), and cerebral infarction without residual deficits
CPT/HCPCS: 36415; 71045; 80048; 80053; 80200; 80202; 81001; 82565; 83605; 83735; 84100; 84484; 84520; 85025; 85610; 85730; 87086; 93005; 96374; A4310; J1650; J2185; J3260; J3370; J7030

== ENCOUNTER 2018-09-26 19:16 | Observation (INO) | payer SELFPAY ==
[~2018-09-26] VITALS: Ht 170.2 cm; Wt 55.3 kg
[2018-09-26] MEDS ORDERED: ONDANSETRON 4 MG INJ IV PRN ×2 (19:30→20:00)
[2018-09-26] MEDS ORDERED: ACETAMINOPHEN 325 MG TAB PO PRN (19:30)
[2018-09-26] MEDS ORDERED: SOD CHLORIDE 0.9% 1,000 ML IV SCH (19:51)
[2018-09-26] MEDS ORDERED: ACETAMINOPHEN 325 MG TAB GTB PRN (20:00)
[2018-09-26] MEDS ORDERED: NACL 0.9% 3 ML SYG IV SCH (20:00)
--- NOTE | 2018-09-26 20:16 | ERD ---
ER Documentation Chief Complaint Chief Complaint bib ambulance from [facility] for tachycardia 130HR per report HPI Patient is a 72-year-old male who presents with tachycardia. Please note the hi story and physical exam is limited secondary to patient's mental status. The patient was just discharged from our hospital. He was sent to [facility] but they would not accept him because he was tachycardic. The patient was brought back by ambulance but the same team that discharged him. I cannot obtain history otherwise. ROS All systems reviewed and are negative except as per history of present illness. Medications Home Meds Reported Medications Vancomycin Hcl (Vancocin) 1 Gm Soln, 750 MG IV, VIAL 07/25/18 Meropenem (Merrem) 1 Gm Vial, 1 GM IV, VIAL 07/25/18 Levalbuterol* (Xopenex* HFA) 15 Gm Inha, 2 PUFFS INH Q4H PRN for WHEEZING AND SOB, INHALER 07/25/18 Lansoprazole* (Lansoprazole*) 30 Mg Capsule.dr, 30 MG PO DAILY, CAP 07/25/18 L Acidophil/B Lactis/B Longum (FLORAJEN3 CAPSULE) 460 Mg Capsule, 460 MG PO, CAP 07/25/18 Ipratropium [place] neb (Ipratropium [place] neb) 0.2 Mg/Ml Solution, 0.5 MG IH Q6H PRN for SHORTNESS OF BREATH, EA 07/25/18 Diltiazem Hcl* (Cardizem SR*) 60 Mg Capsr, 60 MG PO Q12, #60 CAP 07/25/18 Collagenase* (Santyl*) 30 Gm Oint..gm., 1 APPLIC TOP DAILY, #1 TUB 07/25/18 Balsam Francisco/[place] Oil (Venelex Ointment) 60 Gm Oint..gm., 1 APPLIC TOP BID, #1 TUB 07/25/18 Amiodarone Hcl* (Amiodarone Hcl*) 200 Mg Tablet, 200 MG NGT BID, #60 TAB 07/25/18 Allergies Allergies: Coded Allergies: Penicillins (Verified Allergy, Unknown, 09/26/18) PMhx/Soc Hx Psychiatric Problems: Yes (Schizo and psychosis) Hx Miscellaneous Medical Probl: Yes (dementia) Smoking Status: Unknown if ever smoked FmHx Unable to obtain Physical Exam Vitals Vital Signs Date Temp Pulse Resp B/P (MAP) Pulse Ox O2 O2 Flow FiO2 Time Delivery Rate 09/26/18 97.3 96 23 116/81 99 19:26 (93) Physical Exam Const: Cachexia Head: Atraumatic Eyes: Normal Conjunctiva ENT: Dry mucous membranes Neck: Full range of motion. No meningismus. Resp: Clear to auscultation bilaterally Cardio: Regular rate and rhythm, no murmurs Abd: Soft, non tender, non distended. Normal bowel sounds Skin: No petechiae or rashes Back: No midline or flank tenderness Ext: No cyanosis, or edema Neur: Awake but altered at baseline Results 24 hrs Current Medications Medications Dose Sig/Carlos A Start Time Status Last (Trade) Ordered Route PRN Stop Time Admin Dose Reason Admin Ondansetron 4 mg ER BRIDGE 09/26/18 HCl (Zofran PRN IV 19:30 09/27/18 Inj) NAUSEA/VOMITI 19:29 NG 650 mg ER BRIDGE 09/26/18 Acetaminophen PRN PO 19:30 09/27/18 (Tylenol .MILD PAIN 19:29 Tab) 1-3 OR TEMP Amiodarone 200 mg BID NGT 09/26/18 UNV HCl 21:00 (Cordarone) Collagenase 1 applic DAILY TOP 09/27/18 UNV (Santyl) 09:00 Diltiazem 60 mg Q12 PO 09/26/18 UNV HCl 21:00 (Cardizem Sr) 30 mg DAILY PO 09/27/18 UNV Lansoprazole 09:00 (Prevacid) Sodium 1,000 ml @ [id number] IV 09/26/18 UNV Chloride 60 mls/hr 19:51 10/08/18 19:50 IV Flush 3 ml PER 09/26/18 UNV (NS 3 ml) PROTOCOL IV 20:00 Ondansetron 4 mg Q6H PRN 09/26/18 UNV HCl (Zofran IV 20:00 Inj) NAUSEA/VOMITI NG 650 mg Q6H PRN 09/26/18 UNV Acetaminophen GTB .PAIN 20:00 (Tylenol 1-3 OR TEMP Tab) Procedures/MDM EKG read by me: Rate/Rhythm: Regular rate and rhythm at a rate of 94 Intervals: Normal Impression: No evidence of ischemia or arrhythmia. No signs of ST elevations or depressions at this time Departure Diagnosis: Primary Impression: Tachycardia Condition: Fair ZAKIYA HYDE MD Sep 26, 2018 20:16
[2018-09-26] MEDS ORDERED: ACETAMINOPHEN 650MG/20.3ML CUP GTB PRN (20:30)
[2018-09-26] MEDS: DILTIAZEM (SR) 60 MG CAP PO SCH (21:00)
[2018-09-26] MEDS: BALSAM PERU/CASTOR OIL 60 GM TUBE TOP SCH (21:50)
[2018-09-26] MEDS: AMIODARONE 200 MG TAB NGT SCH (21:51)
--- NOTE | 2018-09-26 23:50 | HP ---
Date/Time of Note Date/Time of Note DATE: 09/26/18 TIME: 23:49 Assessment/Plan VTE Prophylaxis SCD applied (from Nsg): Yes Pharmacological prophylaxis: NA/contraindicated Pharm contraindication: low risk/ambulating Lines/Catheters IV Catheter Type (from Nrsg): Saline Lock Assessment/Plan Hospital Course This is a 72-year-old male being admitted to the telemetry floor for: 1. Tachycardia: Possible A. fib with RVR. Patient arrived to the emergency department with heart rate in the 90s. He has underlying history of atrial fibrillation. At the current time we will monitor the patient on telemetry. We will continue patient's home amiodarone and Cardizem. Cardiology consultation . Currently not on any anticoagulation, will defer to cardiology. 2. Chronic encephalopathy, history of CVA: Continue supportive care. 3. Atrial fibrillation: rate controlled at the moment without receiving any medications since arrival, Continue PO amiodarone and diltiazem 4. Dysphagia: Status post G-tube, resume G-tube feedings 5. History of recent MV endocarditis - s/p course of IV vancomycin, completed 08/27 6. Stage III sacral decub ulcer -Surgical sacral decub ulcer debridement on 09/15 7. DVT GI prophylaxis: SCDs, home PPI Further treatment strategy will be implemented as per the clinical course. . 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 Patient was on his way back to his longterm facility at [facility] however when he arrived there he apparently was noted to be tachycardic in the rate of 130s patient was brought back to [facility] via ambulance. In the emergency department he was noted to be in A. fib but with a heart rate of approximately 94 bpm. Patient does not appear to be in any acute distress. Further history was unable to be obtained from the patient as he has history of chronic encephalopathy. Most of the history was obtained from the EMR. Allergies: Penicillin Medications: Amiodarone 200 mg via NGT twice daily Venelex ointment 60 mg 1 application topical twice daily Collagenase Santyl 30 mg ointment 1 application topical daily Cardizem 60 mg p.o. every 12 hours Lansoprazole 30 mg p.o. daily ROS Subjective hx not possible: other (Limited given chronic encephalopathy) PMH/Family/Social Past Medical History atrial fibrillation, multifocal infarcts, dementia, chronic encephalopathy, psychosis/schizophrenia, MV endocarditis, dysphagia with G-tube, stage IV sacral decubitus ulcer was necrosis status post excisional debridement. Medications Current Medications Amiodarone HCl (Cordarone) 200 mg BID NGT Last administered on 09/26/18at 21:51; Admin Dose 200 MG; Start 09/26/18 at 21:00 Diltiazem HCl (Cardizem Sr) 60 mg Q12 PO ; Start 09/26/18 at 21:00 Lansoprazole (Prevacid) 30 mg DAILY GTB ; Start 09/27/18 at 09:00 Sodium Chloride 1,000 ml @ 60 mls/hr [id number] IV Last administered on 09/26/18at 20:26; Admin Dose 60 MLS/HR; Start 09/26/18 at 19:51; Stop 10/08/18 at 19:50 IV Flush (NS 3 ml) 3 ml PER PROTOCOL IV ; Start 09/26/18 at 20:00 Ondansetron HCl (Zofran Inj) 4 mg Q6H PRN IV NAUSEA/VOMITING; Start 09/26/18 at 20:00 Acetaminophen (Tylenol Liquid) 650 mg Q6H PRN GTB MILD PAIN(1-3)OR ELEVATED TEMP; Start 09/26/18 at 20:30 Collagenase (Santyl) 1 applic DAILY TOP ; Start 09/27/18 at 09:00 Coded Allergies: Penicillins (Verified Allergy, Unknown, 09/26/18) Past Surgical History see pmhx Past Surgical Hx: other Family History Significant Family History: no pertinent family hx Social History Unknown Smoking Status: Unknown if ever smoked Exam/Review of Systems Vital Signs Vitals Vital Signs Date Temp Pulse Resp B/P (MAP) Pulse Ox O2 O2 Flow FiO2 Time Delivery Rate 09/26/18 97.3 93 20 109/63 100 Room Air 21:57 (78) Exam Exam General: Patient is a frail-appearing male currently lying in bed in no acute distress HEENT: Atraumatic, normocephalic. The pupils are equal, round and reactive. Extraocular motor are intact Neck: Supple with full range of motion. No rigidity or meningismus Chest: Nontender Lungs: Clear to auscultation bilaterally no crackles rales or wheezing Heart: Irregularly irregular Abdomen: Soft , G-tube, nontender, nondistended , bowel sounds are present. No guarding no rebound tenderness , No masses or organomegaly. No costovertebral temporal angle mass Extremities: Normal to inspection, no edema no cyanosis Neurologic: Awake, slow to respond which is patient's baseline. Further neuro exam unable to perform given patient's chronic encephalopathy. Additional Comments EKG: A. fib at approximately 94 bpm, PROCEDURE: XR Chest. CLINICAL INDICATION: Sepsis . TECHNIQUE: Single frontal chest x-ray. COMPARISON: CHEST 09/22/2018; CHEST 09/03/2018; SD CR CHEST 05/17/2018; CR CHEST 12/31/2016 FINDINGS: Cardiomegaly with hilar vascular and interstitial congestion is unchanged. . There are no new alveolar infiltrates, edema, or effusions.. Calcific atherosclerosis of the aorta is present.. The osseous structures are intact. IMPRESSION: Cardiomegaly with hilar vascular and interstitial congestive changes.. RPTAT: [facility] .Carroll Farmer MD, Date Time Electronically viewed and signed by .Carroll Farmer MD, on 09/26/2018 08:56 .L/ CC: NEYDA DUENAS NP [phone] CHENTE MARROQUIN Sep 26, 2018 23:50
[2018-09-27 02:00] VITALS: BP 124/71; PULSE 83; RESP 20
[2018-09-27 03:50] VITALS: BP 115/63; PULSE 83; RESP 19
[2018-09-27 05:01] VITALS: Ht 170.2 cm; Wt 55.3 kg
[2018-09-27 07:29] VITALS: BP 106/61; PULSE 89; RESP 22
[2018-09-27 08:00] VITALS: PULSE 84
[2018-09-27] MEDS ORDERED: COLLAGENASE 30 GM TUBE TOP SCH (09:00)
[2018-09-27] MEDS ORDERED: LANSOPRAZOLE 30 MG CAP GTB SCH (09:00)
[2018-09-27] MEDS ORDERED: COLLAGENASE 5 GM (UD JAR) TOP SCH (09:00)
[2018-09-27] MEDS: DILTIAZEM (SR) 60 MG CAP PO SCH (09:20)
[2018-09-27] MEDS: AMIODARONE 200 MG TAB NGT SCH (09:21)
[2018-09-27] MEDS: BALSAM PERU/CASTOR OIL 60 GM TUBE TOP SCH (09:32)
--- NOTE | 2018-09-27 10:58 | CONDCODE ---
Medicare Criteria-> INP to OBS Patient still in hospital: Yes SI/IS Criteria met: No Attending MD agrees w/change: Yes Order entered in Pt. record: Yes Pt. does not meet Inp Criteria: Yes Medicare Inp->Obs Criteria met: Yes UR Phys Advisor eSign required: Yes I personally scribed for IAN GOFF MD ([facility]) on 09/27/18 at 10:58. Electronically submitted by Veronica Carreon ([facility]). IAN GOFF MD Sep 27, 2018 10:58
--- NOTE | 2018-09-27 10:58 | CONDCODE ---
Medicare Criteria-> INP to OBS Patient still in hospital: Yes SI/IS Criteria met: No Attending MD agrees w/change: Yes Order entered in Pt. record: Yes Pt. does not meet Inp Criteria: Yes Medicare Inp->Obs Criteria met: Yes UR Phys Advisor eSign required: Yes I personally scribed for IFTIKHAR AGUIRRE ([email or web address]) on 09/27/18 at 10:58. Electronically submitted by Veronica Carreon ([facility]). IFTIKHAR AGUIRRE Sep 27, 2018 10:58
[2018-09-27 11:28] VITALS: BP 111/67; PULSE 113; RESP 20
[2018-09-27 12:00] VITALS: PULSE 8
--- NOTE | 2018-09-27 13:05 | DS ---
Date/Time of Note Date/Time of Note DATE: 09/27/18 TIME: 13:02 Discharge Summary Admission/Discharge Info Admit Date/Time Sep 26, 2018 at 19:30 Discharge Date/Time Discharge Diagnosis his is a 72-year-old male being admitted to the telemetry floor for: 1. Tachycardia??? No evidence of tachycardia in the last 24 hours. I have communicated with the skilled nursing, patient with chronic A. fib apparently transient episodes of tachycardia. If assigned primary MD is uncomfortable managing atrial fibrillation, the patient should be assigned to a different primary care provider. 2. Chronic encephalopathy, history of CVA: Continue supportive care. 3. Atrial fibrillation: rate controlled, Continue PO amiodarone and diltiazem 4. Dysphagia: Status post G-tube, resume G-tube feedings 5. History of recent MV endocarditis - s/p course of IV vancomycin, completed 08/27 6. Stage III sacral decub ulcer -Surgical sacral decub ulcer debridement on 09/15 Patient Condition: Stable Consults cardiology: charan Cottrell MD . Hospital Course 72-year-old male who was discharged from this facility yesterday after being admitted and managed for sepsis from unclear source, likely SIRS. Patient had a history of recent mitral valve endocarditis, healthcare associated pneumonia and bacteremia and had completed his antibiotic course while inpatient. Of note is that he also had a large decub ulcer that was debrided while in-house at the prior hospitalization. However upon review also did not look infected. Hence patient was seen by ID and once he says resolved, he was discharged back to skilled nursing without antibiotics. However upon arrival at the skilled nursing he was sent right back to the emergency room because of concerns for heart rate in the 130s according to report. However throughout patient's hospitalization the last 24 hours, his heart rate has ranged between 7494. There is no value greater than 100. I spoken with the biomedical engineering director at [facility] and I have let them know that the patient will be transferred back as he remains stable for discharge back to skilled nursing. I will include PRN Cardizem for heart rate greater than 110 on his records. No further intervention is w arranted at this time, patient remains stable for discharge. Discharge Meds: Sometimes changes are made to final medication list after discharge summary has been dictated, hence for complete and accurate discharge meds, please review discharge med list in patient's chart. Thank you. Disclaimer: Inadvertent spelling and grammatical errors as well as erroneous comments are likely due to EHR/dictation software use and do not reflect on the quality of delivered patient care. They will be resolved as soon as possible once noted. Also, please note that the electronic time recorded on this node does not necessarily reflect the actual time of the visit. . Home Meds Reported Medications Lansoprazole* (Lansoprazole*) 30 Mg Capsule.dr, 30 MG PO DAILY, CAP 07/25/18 Diltiazem Hcl* (Cardizem SR*) 60 Mg Capsr, 60 MG PO Q12, #60 CAP 07/25/18 Collagenase* (Santyl*) 30 Gm Oint..gm., 1 APPLIC TOP DAILY, #1 TUB 07/25/18 Balsam [place] Oil (Venelex Ointment) 60 Gm Oint..gm., 1 APPLIC TOP BID, #1 TUB 07/25/18 Amiodarone Hcl* (Amiodarone Hcl*) 200 Mg Tablet, 200 MG NGT BID, #60 TAB 07/25/18 Discontinued Reported Medications Vancomycin Hcl (Vancocin) 1 Gm Soln, 750 MG IV, VIAL 07/25/18 Meropenem (Merrem) 1 Gm Vial, 1 GM IV, VIAL 07/25/18 Levalbuterol* (Xopenex* HFA) 15 Gm Inha, 2 PUFFS INH Q4H PRN for WHEEZING AND SOB, INHALER 07/25/18 L Acidophil/B Lactis/B Longum (FLORAJEN3 CAPSULE) 460 Mg Capsule, 460 MG PO, CAP 07/25/18 Ipratropium [place] neb (Ipratropium [place] neb) 0.2 Mg/Ml Solution, 0.5 MG IH Q6H PRN for SHORTNESS OF BREATH, EA 07/25/18 Follow-up Plan Care is to be resumed by assigned primary care provider. Patient with chronic A. fib apparently transient episodes of tachycardia. If assigned primary MD is uncomfortable managing atrial fibrillation, the patient should be assigned to a different primary care provider. Patient should also resume routine follow-up as outpatient with cardiology group. Dr. Charan Cottrell and Flavia Joseph. . Primary Care Provider Not On Staff Doctor Time spent on discharge: > 30 minutes Pending Labs Laboratory Tests Test 09/27/18 05:09 White Blood Count 6.7 10^3/ul (4.8-10.8) Red Blood Count 3.55 10^6/ul (4.70-6.10) Hemoglobin 10.1 g/dl (14.0-18.0) Hematocrit 33.2 % (42.0-52.0) Mean Corpuscular Volume 93.5 fl (82.0-101.0) Mean Corpuscular Hemoglobin 28.5 pg (29.0-33.0) Mean Corpuscular Hemoglobin Concent 30.4 g/dl (32.0-37.0) Red Cell Distribution Width 16.1 % (11.5-14.5) Platelet Count 290 10^3/UL (140-415) Mean Platelet Volume 9.4 fl (7.4-10.4) Immature Granulocytes % 5.100 % (0.001-0.429) Neutrophils % 71.9 % (39.0-77.0) Segmented Neutrophils % (Manual) 74 % (39-77) Band Neutrophils % (Manual) 4 % (0-4) Lymphocytes % 13.8 % (15.0-51.0) Lymphocytes % (Manual) 12 % (15-51) Monocytes % 7.6 % (0.0-11.0) Monocytes % (Manual) 7 % (0-11) Eosinophils % 0.6 % (0.0-7.0) Basophils % 1.0 % (0.0-2.0) Myelocytes % (Manual) 3 % (0-0) Nucleated Red Blood Cells % 0.0 /100WBC (0.0-0.0) Immature Granulocytes # 0.340 10^3/ul (0.0-0.031) Neutrophils # 4.8 10^3/ul (1.6-7.5) Neutrophils # (Manual) 5.0 10^3/ul (1.6-7.5) Band Neutrophils # 0.2 10^3/ul (0.0-0.6) Lymphocytes (Manual) 0.8 10^3/ul (0.8-2.9) Lymphocytes # 0.9 10^3/ul (0.8-2.9) Monocytes # 0.5 10^3/ul (0.3-0.9) Monocytes # (Manual) 0.4 10^3/ul (0.3-0.9) Eosinophils # 0.0 10^3/ul (0.0-0.5) Basophils # 0.1 10^3/ul (0.0-0.1) Myelocytes # 0.2 10^3/ul (0.0-0.0) Nucleated Red Blood Cells # 0.0 10^3/ul (0.0-0.0) Platelet Estimate NORMAL Polychromasia 1+ (0-0) Poikilocytosis 1+ (0-0) Anisocytosis 1+ (0-0) Sodium Level 143 mmol/L (135-144) Potassium Level 4.4 mmol/L (3.5-5.1) Chloride Level 106 mmol/L (97-110) Carbon Dioxide Level 30 mmol/L (21-31) Anion Gap 7 (5-13) Blood Urea Nitrogen 17 mg/dl (7-20) Creatinine 0.53 mg/dl (0.61-1.24) Est Glomerular Filtrat Rate mL/min > 60 mL/min (>60) Glucose Level 94 mg/dl (70-220) Calcium Level 9.6 mg/dl (8.4-10.2) Total Bilirubin 0.5 mg/dl (0.2-1.3) Direct Bilirubin 0.00 mg/dl (0.00-0.20) Indirect Bilirubin 0.5 mg/dl (0-1.1) Aspartate Amino Transf (AST/SGOT) 23 IU/L (15-46) Alanine Aminotransferase (ALT/SGPT) 36 IU/L (13-69) Alkaline Phosphatase 119 IU/L (42-121) Total Protein 7.4 g/dl (6.1-8.1) Albumin 3.3 g/dl (3.3-4.9) Globulin 4.10 g/dl (1.3-3.2) Albumin/Globulin Ratio 0.80 IFTIKHAR AGUIRRE Sep 27, 2018 13:05
== END 2018-09-27 14:29 ==
LOC: E/R 19:16 → INTOOBSV 19:30 → 6WM 19:30
PROVIDERS: ADMIT Family Medicine; ATTEND Family Medicine
DX: I48.2 Chronic atrial fibrillation (principal); G93.40 Encephalopathy, unspecified; F20.9 Schizophrenia, unspecified; F03.90 Unspecified dementia, unspecified severity, without behavioral disturbance, psychotic disturbance, mood disturbance, and anxiety; R13.10 Dysphagia, unspecified; L89.153 Pressure ulcer of sacral region, stage 3; Z93.1 Gastrostomy status
CPT/HCPCS: 80053; 85025; 93005; 99217; 99285; G0378; J7030

== ENCOUNTER 2018-10-02 15:54 | Inpatient (IN) | payer MEDICARE ==
[2018-10-02] VITALS (8 sets, daily range): BP systolic 88–105; BP diastolic 54–69; PULSE 83–115; RESP 22–32; Ht 170.2 cm; Wt 48.0 kg
[~2018-10-02] VITALS: Ht 170.2 cm; Wt 48.0 kg
[~2018-10-02 15:54] MED LIST changes: -L.AC460C PO; -LEVA15HF6 INH; -MERO1VIA IV; -VANC1VIA16 IV; -[UNRECOGNIZED DRUG - CODE] IH
[2018-10-02] MEDS ORDERED: SODIUM CHLORIDE 0.9% 1L BAG IV* STA (15:59)
[2018-10-02] MEDS ORDERED: CEFEPIME 1GM/50 ML (PMX) 50 ML IVPB ONE (16:00)
[2018-10-02] MEDS ORDERED: VANCOMYCIN 1 GM (PMX) 250 ML IVPB ONE (16:00)
[2018-10-02] MEDS ORDERED: DILTIAZEM 25 MG INJ IV STA (17:12)
[2018-10-02] MEDS ORDERED: DILTIAZEM-D5W 125MG/125ML DRIP 125 ML IV STA (17:12)
[2018-10-02] MEDS ORDERED: ONDANSETRON 4 MG INJ IV PRN ×2 (17:30→18:00)
[2018-10-02] MEDS ORDERED: ACETAMINOPHEN 325 MG TAB GTB PRN (17:30)
[2018-10-02] MEDS ORDERED: ACETAMINOPHEN 325 MG TAB PO PRN (17:30)
[2018-10-02] MEDS ORDERED: VANCOMYCIN IV PER PHARMACY XX SCH (18:00)
[2018-10-02] MEDS ORDERED: DOCUSATE SODIUM 100 MG CAP PO PRN (18:00)
[2018-10-02] MEDS ORDERED: ALBUTEROL 0.083% (NEB) 2.5 MG/3 ML AMP NEB PRN (18:00)
[2018-10-02] MEDS ORDERED: ACETAMINOPHEN 650MG/20.3ML CUP GTB PRN (18:00)
[2018-10-02] MEDS ORDERED: MAGNESIUM HYDROXIDE 30ML CUP PO PRN (18:00)
[2018-10-02] MEDS ORDERED: VANCOMYCIN 1 GM in 250 ML IVPB ONE (18:30)
[2018-10-02] MEDS: SOD CHLORIDE 0.9% 1,000 ML IV SCH (21:09)
[2018-10-02] MEDS: MEROPENEM 1 GM/50ML(PMX) 50 ML IVPB SCH (22:16)
[2018-10-02] MEDS: AMIODARONE 200 MG TAB GTB SCH (22:16)
[2018-10-03] VITALS (41 sets, daily range): BP systolic 72–117; BP diastolic 38–66; PULSE 72–113; RESP 17–35
[2018-10-03] MEDS: LEVALBUTEROL (NEB) 0.63 MG/3 ML AMP HHN PRN ×4 (03:23→20:01)
[2018-10-03] MEDS: ACETYLCYSTEINE 20% 4 ML VIAL NEB SCH ×4 (03:24→20:01)
[2018-10-03] MEDS: MEROPENEM 1 GM/50ML(PMX) 50 ML IVPB SCH ×3 (05:07→21:28)
[2018-10-03] MEDS ORDERED: PANTOPRAZOLE 40 MG INJ IV SCH (06:00)
[2018-10-03] MEDS: LANSOPRAZOLE 30 MG CAP GTB SCH (08:31)
[2018-10-03] MEDS ORDERED: SOD CHLORIDE 0.9% 500 ML IV ONE ×2 (09:00→14:00)
[2018-10-03] MEDS: AMIODARONE 200 MG TAB GTB SCH ×2 (09:24→20:14)
[2018-10-03] MEDS: SOD CHLORIDE 0.9% 1,000 ML IV SCH ×2 (09:24→17:20)
[2018-10-03] MEDS ORDERED: LIDOCAINE 1% (MPF) 5 ML VIAL SC ONE (14:00)
[2018-10-03] MEDS ORDERED: ALBUMIN HUMAN 25% 50 ML IV ONE (14:00)
[2018-10-03] MEDS: VANCOMYCIN 1 GM 250 ML IVPB SCH (17:19)
[2018-10-03] MEDS ORDERED: NORepinephrine 8MG/250 ML (PMX 250 ML IV SCH (18:00)
[2018-10-04] VITALS (24 sets, daily range): BP systolic 79–107; BP diastolic 46–70; PULSE 80–110; RESP 16–31
[2018-10-04] MEDS: ACETYLCYSTEINE 20% 4 ML VIAL NEB SCH ×4 (02:17→20:41)
[2018-10-04] MEDS: LEVALBUTEROL (NEB) 0.63 MG/3 ML AMP HHN PRN ×4 (02:19→20:41)
[2018-10-04] MEDS: MEROPENEM 1 GM/50ML(PMX) 50 ML IVPB SCH ×3 (05:06→21:37)
[2018-10-04] MEDS ORDERED: POTASSIUM CHLORIDE 50 ML ONE (06:10)
[2018-10-04] MEDS: POTASSIUM CHLORIDE 50 ML IVPB SCH ×4 (06:24→16:53)
[2018-10-04] MEDS: SOD CHLORIDE 0.9% 1,000 ML IV SCH ×2 (08:25→22:53)
[2018-10-04] MEDS: LANSOPRAZOLE 30 MG CAP GTB SCH (09:24)
[2018-10-04] MEDS: ASCORBIC ACID 500 MG TAB GTB SCH (09:24)
[2018-10-04] MEDS: AMIODARONE 200 MG TAB GTB SCH ×2 (09:24→21:37)
[2018-10-04] MEDS: ZINC SULFATE 220 MG CAP GTB SCH (09:24)
[2018-10-04] MEDS ORDERED: MAGNESIUM SULFATE 2 GM/50 ML 50 ML IVPB ONE (10:30)
[2018-10-04] MEDS ORDERED: SOD CHLORIDE 0.9% 100 ML ONE (13:09)
[2018-10-04] MEDS ORDERED: IOHEXOL 300MG/ML 150 ML BTL ONE (13:09)
[2018-10-04] MEDS ORDERED: PENDING SANTYL ORDER FOR WOUND CARE XX SCH (14:30)
[2018-10-04] MEDS: COLLAGENASE 5 GM (UD JAR) TOP SCH (16:47)
[2018-10-04] MEDS: DAKINS 0.0125%(1/40) 473 ML SOLUTION TP SCH (16:48)
[2018-10-04] MEDS: VANCOMYCIN 1 GM 250 ML IVPB SCH (18:10)
[2018-10-05] VITALS (24 sets, daily range): BP systolic 85–132; BP diastolic 53–91; PULSE 81–126; RESP 15–36
[2018-10-05] MEDS: LEVALBUTEROL (NEB) 0.63 MG/3 ML AMP HHN PRN ×4 (01:50→20:33)
[2018-10-05] MEDS: ACETYLCYSTEINE 20% 4 ML VIAL NEB SCH ×4 (01:50→20:33)
[2018-10-05] MEDS: MEROPENEM 1 GM/50ML(PMX) 50 ML IVPB SCH (05:33)
[2018-10-05] MEDS: COLLAGENASE 5 GM (UD JAR) TOP SCH (08:22)
[2018-10-05] MEDS: AMIODARONE 200 MG TAB GTB SCH ×2 (08:22→21:07)
[2018-10-05] MEDS: LANSOPRAZOLE 30 MG CAP GTB SCH (08:22)
[2018-10-05] MEDS: ASCORBIC ACID 500 MG TAB GTB SCH (08:22)
[2018-10-05] MEDS: ZINC SULFATE 220 MG CAP GTB SCH (08:22)
[2018-10-05] MEDS: DAKINS 0.0125%(1/40) 473 ML SOLUTION TP SCH (08:22)
[2018-10-05] MEDS ORDERED: DIGOXIN 0.125 MG TAB PO ONE (10:30)
[2018-10-05] MEDS ORDERED: TIGECYCLINE 100 MG in SOD CHLORIDE 0.9% 100 ML IVPB ONE (14:00)
[2018-10-05] MEDS: TIGECYCLINE 50 MG in SOD CHLORIDE 0.9% 100 ML IVPB SCH (21:06)
[2018-10-06] VITALS (20 sets, daily range): BP systolic 96–135; BP diastolic 63–110; PULSE 83–120; RESP 20–33
[2018-10-06] MEDS: LEVALBUTEROL (NEB) 0.63 MG/3 ML AMP HHN PRN ×4 (01:55→19:26)
[2018-10-06] MEDS: ACETYLCYSTEINE 20% 4 ML VIAL NEB SCH ×4 (01:55→19:26)
[2018-10-06] MEDS: AMIODARONE 200 MG TAB GTB SCH ×2 (09:06→21:38)
[2018-10-06] MEDS: LANSOPRAZOLE 30 MG CAP GTB SCH (09:06)
[2018-10-06] MEDS: ASCORBIC ACID 500 MG TAB GTB SCH (09:06)
[2018-10-06] MEDS: ZINC SULFATE 220 MG CAP GTB SCH (09:06)
[2018-10-06] MEDS: DAKINS 0.0125%(1/40) 473 ML SOLUTION TP SCH (09:07)
[2018-10-06] MEDS: COLLAGENASE 5 GM (UD JAR) TOP SCH (09:17)
[2018-10-06] MEDS: TIGECYCLINE 50 MG in SOD CHLORIDE 0.9% 100 ML IVPB SCH ×2 (10:02→21:37)
[2018-10-06] MEDS ORDERED: FUROSEMIDE 20 MG INJ IV ONE (11:00)
[2018-10-07] MEDS: LEVALBUTEROL (NEB) 0.63 MG/3 ML AMP HHN PRN ×4 (01:03→19:28)
[2018-10-07] MEDS: ACETYLCYSTEINE 20% 4 ML VIAL NEB SCH ×4 (01:03→19:28)
[2018-10-07 04:00] VITALS: BP 97/58; PULSE 86; RESP 20
[2018-10-07 07:20] VITALS: BP 96/57; PULSE 84; RESP 18
[2018-10-07] MEDS ORDERED: COLLAGENASE 5 GM (UD JAR) TOP SCH (09:00)
[2018-10-07] MEDS: TIGECYCLINE 50 MG in SOD CHLORIDE 0.9% 100 ML IVPB SCH ×2 (09:00→21:15)
[2018-10-07] MEDS: ASCORBIC ACID 500 MG TAB GTB SCH (09:00)
[2018-10-07] MEDS: AMIODARONE 200 MG TAB GTB SCH ×2 (09:00→21:23)
[2018-10-07] MEDS ORDERED: DAKINS 0.0125%(1/40) 473 ML SOLUTION TP SCH (09:00)
[2018-10-07] MEDS: COLLAGENASE 5 GM (UD JAR) TOP SCH (10:00)
[2018-10-07] MEDS: ZINC SULFATE 220 MG CAP GTB SCH (10:03)
[2018-10-07] MEDS: LANSOPRAZOLE 30 MG CAP GTB SCH (10:03)
[2018-10-07] MEDS: DAKINS 0.0125%(1/40) 473 ML SOLUTION TP SCH (10:05)
[2018-10-07 11:22] VITALS: BP 108/68; PULSE 96; RESP 18
[2018-10-07] MEDS ORDERED: GENTAMICIN IV PER PHARMACY XX SCH (14:00)
[2018-10-07] MEDS ORDERED: GENTAMICIN 240 MG in DEXTROSE 5% 100 ML IVPB SCH (14:30)
[2018-10-07 15:16] VITALS: BP 100/56; PULSE 97; RESP 17
[2018-10-07 20:00] VITALS: BP 95/60; PULSE 79; RESP 18
[2018-10-08] VITALS: BP 106/72; PULSE 89; RESP 18
[2018-10-08] MEDS: LEVALBUTEROL (NEB) 0.63 MG/3 ML AMP HHN PRN ×3 (01:18→19:32)
[2018-10-08] MEDS: ACETYLCYSTEINE 20% 4 ML VIAL NEB SCH ×4 (01:18→19:32)
[2018-10-08 04:00] VITALS: BP 107/66; PULSE 111; RESP 18
[2018-10-08] MEDS ORDERED: [UNRECOGNIZED DRUG - REMARK] XX SCH (05:00)
[2018-10-08 07:09] VITALS: BP 103/66; PULSE 104; RESP 20
[2018-10-08] MEDS: DAKINS 0.0125%(1/40) 473 ML SOLUTION TP SCH (09:00)
[2018-10-08] MEDS: TIGECYCLINE 50 MG in SOD CHLORIDE 0.9% 100 ML IVPB SCH ×2 (09:00→20:42)
[2018-10-08] MEDS: LANSOPRAZOLE 30 MG CAP GTB SCH (09:23)
[2018-10-08] MEDS: ASCORBIC ACID 500 MG TAB GTB SCH (09:23)
[2018-10-08] MEDS: COLLAGENASE 5 GM (UD JAR) TOP SCH (09:24)
[2018-10-08] MEDS: AMIODARONE 200 MG TAB GTB SCH ×2 (09:24→20:42)
[2018-10-08] MEDS: ZINC SULFATE 220 MG CAP GTB SCH (09:24)
[2018-10-08 11:31] VITALS: BP 104/57; PULSE 86; RESP 19
[2018-10-08 15:12] VITALS: BP 93/57; PULSE 100; RESP 20
[2018-10-08 20:08] VITALS: BP 95/53; PULSE 89; RESP 18
[2018-10-09 00:21] VITALS: BP 101/56; PULSE 73; RESP 18
[2018-10-09] MEDS: LEVALBUTEROL (NEB) 0.63 MG/3 ML AMP HHN PRN ×4 (01:25→19:55)
[2018-10-09] MEDS: ACETYLCYSTEINE 20% 4 ML VIAL NEB SCH ×4 (01:25→19:55)
[2018-10-09 05:23] VITALS: BP 109/58; PULSE 86; RESP 18
[2018-10-09] MEDS: GENTAMICIN 240 MG in DEXTROSE 5% 100 ML IVPB SCH (05:53)
[2018-10-09 07:37] VITALS: BP 107/56; PULSE 87; RESP 18
[2018-10-09] MEDS: LANSOPRAZOLE 30 MG CAP GTB SCH (09:36)
[2018-10-09] MEDS: ZINC SULFATE 220 MG CAP GTB SCH (09:36)
[2018-10-09] MEDS: AMIODARONE 200 MG TAB GTB SCH ×2 (09:37→20:23)
[2018-10-09] MEDS: ASCORBIC ACID 500 MG TAB GTB SCH (09:37)
[2018-10-09] MEDS: TIGECYCLINE 50 MG in SOD CHLORIDE 0.9% 100 ML IVPB SCH ×2 (09:43→20:22)
[2018-10-09] MEDS: COLLAGENASE 5 GM (UD JAR) TOP SCH (09:46)
[2018-10-09] MEDS: DAKINS 0.0125%(1/40) 473 ML SOLUTION TP SCH (09:46)
[2018-10-09 11:14] VITALS: BP 102/58; PULSE 88
[2018-10-09 15:45] VITALS: BP 106/72; PULSE 83; RESP 18
[2018-10-09 20:32] VITALS: BP 97/52; PULSE 99; RESP 18
[2018-10-10 00:16] VITALS: BP 125/69; PULSE 79; RESP 17
[2018-10-10] MEDS: LEVALBUTEROL (NEB) 0.63 MG/3 ML AMP HHN PRN ×4 (01:07→20:31)
[2018-10-10] MEDS: ACETYLCYSTEINE 20% 4 ML VIAL NEB SCH ×4 (01:07→20:31)
[2018-10-10 04:36] VITALS: BP 119/65; PULSE 76; RESP 18
[2018-10-10 08:09] VITALS: BP 86/54; PULSE 75; RESP 18
[2018-10-10] MEDS: AMIODARONE 200 MG TAB GTB SCH ×2 (09:00→20:42)
[2018-10-10] MEDS: TIGECYCLINE 50 MG in SOD CHLORIDE 0.9% 100 ML IVPB SCH ×2 (09:01→20:46)
[2018-10-10] MEDS: ASCORBIC ACID 500 MG TAB GTB SCH (09:01)
[2018-10-10] MEDS: ZINC SULFATE 220 MG CAP GTB SCH (09:02)
[2018-10-10] MEDS: DAKINS 0.0125%(1/40) 473 ML SOLUTION TP SCH (09:02)
[2018-10-10] MEDS: COLLAGENASE 5 GM (UD JAR) TOP SCH (09:02)
[2018-10-10] MEDS: LANSOPRAZOLE 30 MG CAP GTB SCH (09:02)
[2018-10-10 11:33] VITALS: BP 115/75; PULSE 110; RESP 20
[2018-10-10 15:32] VITALS: BP 105/73; PULSE 63; RESP 18
[2018-10-10] MEDS: GENTAMICIN 240 MG in DEXTROSE 5% 100 ML IVPB SCH (18:34)
[2018-10-10 20:00] VITALS: BP 108/56; PULSE 97; RESP 18
[2018-10-11] VITALS: BP 102/61; PULSE 101; RESP 18
[2018-10-11] MEDS: ACETYLCYSTEINE 20% 4 ML VIAL NEB SCH ×4 (01:06→20:53)
[2018-10-11] MEDS: LEVALBUTEROL (NEB) 0.63 MG/3 ML AMP HHN PRN ×4 (01:06→20:54)
[2018-10-11 04:00] VITALS: BP 99/64; PULSE 88; RESP 18
[2018-10-11 07:17] VITALS: BP 102/59; PULSE 86; RESP 18
[2018-10-11] MEDS: ASCORBIC ACID 500 MG TAB GTB SCH (08:25)
[2018-10-11] MEDS: ZINC SULFATE 220 MG CAP GTB SCH (08:25)
[2018-10-11] MEDS: LANSOPRAZOLE 30 MG CAP GTB SCH (08:27)
[2018-10-11] MEDS: COLLAGENASE 5 GM (UD JAR) TOP SCH (08:27)
[2018-10-11] MEDS: AMIODARONE 200 MG TAB GTB SCH ×2 (08:27→20:58)
[2018-10-11] MEDS: DAKINS 0.0125%(1/40) 473 ML SOLUTION TP SCH (08:28)
[2018-10-11] MEDS: TIGECYCLINE 50 MG in SOD CHLORIDE 0.9% 100 ML IVPB SCH ×2 (08:37→20:59)
[2018-10-11 11:34] VITALS: BP 93/56; PULSE 72; RESP 18
[2018-10-11 15:26] VITALS: BP 98/54; PULSE 74; RESP 20
[2018-10-11 19:36] VITALS: BP 92/54; PULSE 64; RESP 20
[2018-10-11] MEDS: LACTOBACILLUS RHAMNOSUS CAP GTB SCH (20:59)
[2018-10-12 00:02] VITALS: BP 97/55; PULSE 82; RESP 20
[2018-10-12] MEDS: ACETYLCYSTEINE 20% 4 ML VIAL NEB SCH ×4 (02:32→20:27)
[2018-10-12] MEDS: LEVALBUTEROL (NEB) 0.63 MG/3 ML AMP HHN PRN ×4 (02:32→20:28)
[2018-10-12 04:10] VITALS: BP 101/59; PULSE 77; RESP 20
[2018-10-12] MEDS: GENTAMICIN 240 MG in DEXTROSE 5% 100 ML IVPB SCH (06:49)
[2018-10-12 07:47] VITALS: BP 104/56; PULSE 78; RESP 20
[2018-10-12] MEDS: TIGECYCLINE 50 MG in SOD CHLORIDE 0.9% 100 ML IVPB SCH ×2 (09:54→21:00)
[2018-10-12] MEDS: ASCORBIC ACID 500 MG TAB GTB SCH (09:56)
[2018-10-12] MEDS: LACTOBACILLUS RHAMNOSUS CAP GTB SCH ×2 (09:56→23:08)
[2018-10-12] MEDS: LANSOPRAZOLE 30 MG CAP GTB SCH (09:56)
[2018-10-12] MEDS: ZINC SULFATE 220 MG CAP GTB SCH (09:56)
[2018-10-12] MEDS: AMIODARONE 200 MG TAB GTB SCH ×2 (09:56→23:08)
[2018-10-12] MEDS: DAKINS 0.0125%(1/40) 473 ML SOLUTION TP SCH (09:57)
[2018-10-12] MEDS: COLLAGENASE 5 GM (UD JAR) TOP SCH (09:57)
[2018-10-12 11:33] VITALS: BP 122/72; PULSE 84; RESP 20
[2018-10-12 15:07] VITALS: BP 113/68; PULSE 86; RESP 20
[2018-10-12 20:00] VITALS: BP 110/62; PULSE 73; RESP 20
[2018-10-13] VITALS: BP 100/57; PULSE 65; RESP 19
[2018-10-13] MEDS: ACETYLCYSTEINE 20% 4 ML VIAL NEB SCH ×4 (01:37→20:04)
[2018-10-13] MEDS: LEVALBUTEROL (NEB) 0.63 MG/3 ML AMP HHN PRN ×3 (01:37→20:05)
[2018-10-13 04:00] VITALS: BP 104/65; PULSE 97; RESP 18
[2018-10-13 07:50] VITALS: BP 110/58; PULSE 90; RESP 18
[2018-10-13] MEDS: LANSOPRAZOLE 30 MG CAP GTB SCH (09:56)
[2018-10-13] MEDS: ZINC SULFATE 220 MG CAP GTB SCH (09:56)
[2018-10-13] MEDS: ASCORBIC ACID 500 MG TAB GTB SCH (09:56)
[2018-10-13] MEDS: LACTOBACILLUS RHAMNOSUS CAP GTB SCH ×2 (09:56→21:40)
[2018-10-13] MEDS: DAKINS 0.0125%(1/40) 473 ML SOLUTION TP SCH (09:57)
[2018-10-13] MEDS: COLLAGENASE 5 GM (UD JAR) TOP SCH (09:57)
[2018-10-13] MEDS: TIGECYCLINE 50 MG in SOD CHLORIDE 0.9% 100 ML IVPB SCH ×2 (09:58→21:41)
[2018-10-13] MEDS: AMIODARONE 200 MG TAB GTB SCH ×2 (09:58→21:40)
[2018-10-13 12:16] VITALS: BP 105/59; PULSE 73; RESP 20
[2018-10-13 16:22] VITALS: BP 147/78; PULSE 96; RESP 24
[2018-10-13] MEDS: GENTAMICIN 240 MG in DEXTROSE 5% 100 ML IVPB SCH (17:52)
[2018-10-13 20:00] VITALS: BP 102/63; PULSE 74; RESP 18
[2018-10-14] VITALS: BP 102/61; RESP 18
[2018-10-14] MEDS: LEVALBUTEROL (NEB) 0.63 MG/3 ML AMP HHN PRN ×2 (01:18→08:20)
[2018-10-14] MEDS: ACETYLCYSTEINE 20% 4 ML VIAL NEB SCH ×2 (01:18→08:20)
[2018-10-14 04:00] VITALS: BP 102/60; RESP 18
[2018-10-14 07:52] VITALS: BP 108/61; PULSE 85; RESP 18
[2018-10-14] MEDS: LANSOPRAZOLE 30 MG CAP GTB SCH (08:37)
[2018-10-14] MEDS: ASCORBIC ACID 500 MG TAB GTB SCH (08:37)
[2018-10-14] MEDS: AMIODARONE 200 MG TAB GTB SCH ×2 (08:37→22:08)
[2018-10-14] MEDS: LACTOBACILLUS RHAMNOSUS CAP GTB SCH ×2 (08:37→22:05)
[2018-10-14] MEDS: ZINC SULFATE 220 MG CAP GTB SCH (08:38)
[2018-10-14] MEDS: DAKINS 0.0125%(1/40) 473 ML SOLUTION TP SCH (08:39)
[2018-10-14] MEDS: TIGECYCLINE 50 MG in SOD CHLORIDE 0.9% 100 ML IVPB SCH ×2 (08:40→22:12)
[2018-10-14] MEDS: COLLAGENASE 5 GM (UD JAR) TOP SCH (08:40)
[2018-10-14 12:07] VITALS: BP 113/68; PULSE 67
[2018-10-14 15:41] VITALS: BP 111/60; PULSE 76; RESP 18
[2018-10-14 20:07] VITALS: BP 118/74; PULSE 85; RESP 20
[2018-10-15 02:21] VITALS: BP 105/58; PULSE 94; RESP 18
[2018-10-15] MEDS: GENTAMICIN 240 MG in DEXTROSE 5% 100 ML IVPB SCH (06:36)
[2018-10-15 08:29] VITALS: BP 91/57; PULSE 71; RESP 18
[2018-10-15] MEDS: LACTOBACILLUS RHAMNOSUS CAP GTB SCH ×2 (08:43→21:24)
[2018-10-15] MEDS: LANSOPRAZOLE 30 MG CAP GTB SCH (08:43)
[2018-10-15] MEDS: TIGECYCLINE 50 MG in SOD CHLORIDE 0.9% 100 ML IVPB SCH ×2 (08:43→21:24)
[2018-10-15] MEDS: ASCORBIC ACID 500 MG TAB GTB SCH (08:43)
[2018-10-15] MEDS: ZINC SULFATE 220 MG CAP GTB SCH (08:47)
[2018-10-15] MEDS: COLLAGENASE 5 GM (UD JAR) TOP SCH (08:54)
[2018-10-15] MEDS: DAKINS 0.0125%(1/40) 473 ML SOLUTION TP SCH (08:55)
[2018-10-15] MEDS: AMIODARONE 200 MG TAB GTB SCH ×2 (08:56→21:25)
[2018-10-15 14:00] VITALS: BP 101/58; PULSE 94; RESP 18
[2018-10-15 20:01] VITALS: BP 101/59; PULSE 85; RESP 18
[2018-10-16 02:26] VITALS: BP 101/60; PULSE 78; RESP 19
[2018-10-16 08:48] VITALS: BP 104/59; PULSE 56; RESP 18
[2018-10-16] MEDS: AMIODARONE 200 MG TAB GTB SCH ×2 (09:00→21:27)
[2018-10-16] MEDS: ASCORBIC ACID 500 MG TAB GTB SCH (09:35)
[2018-10-16] MEDS: LANSOPRAZOLE 30 MG CAP GTB SCH (09:35)
[2018-10-16] MEDS: LACTOBACILLUS RHAMNOSUS CAP GTB SCH ×2 (09:35→21:26)
[2018-10-16] MEDS: TIGECYCLINE 50 MG in SOD CHLORIDE 0.9% 100 ML IVPB SCH ×2 (09:35→21:26)
[2018-10-16] MEDS: ZINC SULFATE 220 MG CAP GTB SCH (09:35)
[2018-10-16] MEDS: COLLAGENASE 5 GM (UD JAR) TOP SCH (09:36)
[2018-10-16] MEDS: DAKINS 0.0125%(1/40) 473 ML SOLUTION TP SCH (12:41)
[2018-10-16 14:50] VITALS: BP 108/61; PULSE 93; RESP 18
[2018-10-16] MEDS: GENTAMICIN 240 MG in DEXTROSE 5% 100 ML IVPB SCH (18:10)
[2018-10-16 20:22] VITALS: BP 120/73; PULSE 90; RESP 17
[2018-10-17 02:32] VITALS: BP 92/55; PULSE 95; RESP 17
[2018-10-17 07:50] VITALS: BP 129/58; PULSE 99; RESP 18
[2018-10-17] MEDS: COLLAGENASE 5 GM (UD JAR) TOP SCH (08:33)
[2018-10-17] MEDS: LANSOPRAZOLE 30 MG CAP GTB SCH (08:33)
[2018-10-17] MEDS: ASCORBIC ACID 500 MG TAB GTB SCH (08:33)
[2018-10-17] MEDS: TIGECYCLINE 50 MG in SOD CHLORIDE 0.9% 100 ML IVPB SCH ×2 (08:33→21:47)
[2018-10-17] MEDS: LACTOBACILLUS RHAMNOSUS CAP GTB SCH ×2 (08:33→21:50)
[2018-10-17] MEDS: DAKINS 0.0125%(1/40) 473 ML SOLUTION TP SCH (08:34)
[2018-10-17] MEDS: ZINC SULFATE 220 MG CAP GTB SCH (08:45)
[2018-10-17] MEDS: AMIODARONE 200 MG TAB GTB SCH ×2 (08:46→21:50)
[2018-10-17 14:10] VITALS: BP 100/69; PULSE 99; RESP 18
[2018-10-17 19:39] VITALS: BP 157/86; PULSE 100; RESP 17
[2018-10-18 01:26] VITALS: BP 102/57; PULSE 72; RESP 16
[2018-10-18] MEDS: GENTAMICIN 240 MG in DEXTROSE 5% 100 ML IVPB SCH (05:59)
[2018-10-18] MEDS: LANSOPRAZOLE (SOLTAB) 30 MG TAB GTB SCH (06:02)
[2018-10-18 07:35] VITALS: BP 109/58; PULSE 76; RESP 18
[2018-10-18] MEDS: COLLAGENASE 5 GM (UD JAR) TOP SCH (09:59)
[2018-10-18] MEDS: ASCORBIC ACID 500 MG TAB GTB SCH (09:59)
[2018-10-18] MEDS: TIGECYCLINE 50 MG in SOD CHLORIDE 0.9% 100 ML IVPB SCH ×2 (09:59→22:29)
[2018-10-18] MEDS: ZINC SULFATE 220 MG CAP GTB SCH (10:00)
[2018-10-18] MEDS: LACTOBACILLUS RHAMNOSUS CAP GTB SCH ×2 (10:00→22:29)
[2018-10-18] MEDS: DAKINS 0.0125%(1/40) 473 ML SOLUTION TP SCH (10:00)
[2018-10-18] MEDS: AMIODARONE 200 MG TAB GTB SCH ×2 (10:00→22:31)
[2018-10-18] MEDS: BALSAM PERU/CASTOR OIL 60 GM TUBE TOP SCH ×2 (12:00→21:00)
[2018-10-18 14:18] VITALS: BP 115/59; PULSE 84; RESP 17
[2018-10-18 19:16] VITALS: BP 103/65; PULSE 87; RESP 16
[2018-10-19 01:28] VITALS: BP 115/67; PULSE 81; RESP 17
[2018-10-19] MEDS: LANSOPRAZOLE (SOLTAB) 30 MG TAB GTB SCH (05:58)
[2018-10-19 07:30] VITALS: BP 108/58; PULSE 85; RESP 18
[2018-10-19] MEDS: BALSAM PERU/CASTOR OIL 60 GM TUBE TOP SCH ×2 (10:06→20:24)
[2018-10-19] MEDS: COLLAGENASE 5 GM (UD JAR) TOP SCH (10:06)
[2018-10-19] MEDS: LACTOBACILLUS RHAMNOSUS CAP GTB SCH ×2 (10:06→20:14)
[2018-10-19] MEDS: ZINC SULFATE 220 MG CAP GTB SCH (10:07)
[2018-10-19] MEDS: ASCORBIC ACID 500 MG TAB GTB SCH (10:07)
[2018-10-19] MEDS: AMIODARONE 200 MG TAB GTB SCH ×2 (10:08→20:16)
[2018-10-19] MEDS: TIGECYCLINE 50 MG in SOD CHLORIDE 0.9% 100 ML IVPB SCH ×2 (10:10→20:23)
[2018-10-19] MEDS: DAKINS 0.0125%(1/40) 473 ML SOLUTION TP SCH (10:10)
[2018-10-19 13:49] VITALS: BP 95/61; PULSE 104; RESP 18
[2018-10-19 14:20] VITALS: PULSE 92
[2018-10-19] MEDS: GENTAMICIN 240 MG in DEXTROSE 5% 100 ML IVPB SCH (18:47)
[2018-10-19 19:24] VITALS: BP 98/57; PULSE 89; RESP 18
[2018-10-20 02:00] VITALS: BP 120/73; PULSE 79; RESP 16
[2018-10-20] MEDS: LANSOPRAZOLE (SOLTAB) 30 MG TAB GTB SCH (05:55)
[2018-10-20 07:14] VITALS: BP 90/56; PULSE 80; RESP 18
[2018-10-20] MEDS ORDERED: AMIODARONE 200 MG TAB GTB SCH (09:00)
[2018-10-20] MEDS: LACTOBACILLUS RHAMNOSUS CAP GTB SCH (09:14)
[2018-10-20] MEDS: ASCORBIC ACID 500 MG TAB GTB SCH (09:14)
[2018-10-20] MEDS: ZINC SULFATE 220 MG CAP GTB SCH (09:14)
[2018-10-20] MEDS: BALSAM PERU/CASTOR OIL 60 GM TUBE TOP SCH (09:15)
[2018-10-20] MEDS: DAKINS 0.0125%(1/40) 473 ML SOLUTION TP SCH (09:15)
[2018-10-20] MEDS: COLLAGENASE 5 GM (UD JAR) TOP SCH (09:15)
[2018-10-20] MEDS: TIGECYCLINE 50 MG in SOD CHLORIDE 0.9% 100 ML IVPB SCH (09:20)
[2018-10-20 15:04] VITALS: BP 104/60; PULSE 81; RESP 28
== END 2018-10-20 16:55 | DRG 871 ==
LOC: E/R 15:54 → ICU 17:18 → 6WM 10-06 17:32 → 2NE 10-14 19:09
PROVIDERS: ADMIT Internal Medicine; ATTEND Internal Medicine
PROC: 02HV33Z Insertion of Infusion Device into Superior Vena Cava, Percutaneous Approach (ICD-10-PCS; principal; 2018-10-03)
PROC: 30233N1 Transfusion of Nonautologous Red Blood Cells into Peripheral Vein, Percutaneous Approach (ICD-10-PCS; 2018-10-04)
DX: A41.9 Sepsis, unspecified organism (principal); L89.154 Pressure ulcer of sacral region, stage 4; J18.9 Pneumonia, unspecified organism; R65.21 Severe sepsis with septic shock; E43 Unspecified severe protein-calorie malnutrition; J96.21 Acute and chronic respiratory failure with hypoxia; G93.40 Encephalopathy, unspecified; R64 Cachexia; Z68.1 Body mass index [BMI] 19.9 or less, adult; E87.2 Acidosis; I50.32 Chronic diastolic (congestive) heart failure; N13.8 Other obstructive and reflux uropathy; M86.9 Osteomyelitis, unspecified; D64.9 Anemia, unspecified; F20.9 Schizophrenia, unspecified; F03.90 Unspecified dementia, unspecified severity, without behavioral disturbance, psychotic disturbance, mood disturbance, and anxiety; F29 Unspecified psychosis not due to a substance or known physiological condition; I48.2 Chronic atrial fibrillation; J44.9 Chronic obstructive pulmonary disease, unspecified; N40.1 Benign prostatic hyperplasia with lower urinary tract symptoms; R13.19 Other dysphagia; Z93.1 Gastrostomy status; Z66 Do not resuscitate; B96.20 Unspecified Escherichia coli [E. coli] as the cause of diseases classified elsewhere; B96.5 Pseudomonas (aeruginosa) (mallei) (pseudomallei) as the cause of diseases classified elsewhere; B95.2 Enterococcus as the cause of diseases classified elsewhere; Z16.24 Resistance to multiple antibiotics; Z16.21 Resistance to vancomycin; Z16.12 Extended spectrum beta lactamase (ESBL) resistance; Z87.01 Personal history of pneumonia (recurrent); Z86.73 Personal history of transient ischemic attack (TIA), and cerebral infarction without residual deficits; Z86.19 Personal history of other infectious and parasitic diseases; Z74.01 Bed confinement status
CPT/HCPCS: 36415; 36430; 36600; 70450; 71045; 71260; 72195; 76937; 80053; 80162; 80170; 81001; 82550; 82553; 82565; 82803; 83605; 83735; 84100; 84134; 84484; 84520; 85025; 85610; 85730; 86850; 86900; 86901; 86920; 87070; 87081; 87086; 89220; 93005; 93970; 94640; 94664; 94668; 96365; 96375; 97163; C9113; J0692; J1580; J1940; J2185; J3243; J3370; J3475; J3480; J7030; J7040; P9016; P9047; Q9967